=== PATIENT | male | born 1940 | race Caucasian/White ===

== ENCOUNTER 2020-09-21 18:48 | Inpatient (IN) | payer MEDICARE, SELFPAY ==
--- NOTE | ~2020-09-21 | XR_ITS ---
EXAMINATION: CR CHEST CLINICAL INFORMATION: Weakness. COMPARISON: Chest x-ray dated 03/05/2017. CTA of the chest dated 03/05/2017. TECHNIQUE: AP upright view of the chest was obtained. FINDINGS: The cardiomediastinal silhouette is within normal limits in size. Lungs bilaterally are symmetrically mildly hypoexpanded with bibasilar linear atelectasis seen. No focal consolidation, effusion or pneumothorax is seen. Bony structures are unremarkable. Prominent gaseous distention of bowel loops in the abdomen noted without significant air-fluid levels. XR/XR chest 1V IMPRESSION: 1. Low lung volumes with bibasilar atelectasis. 2. Nonspecific gaseous distention of bowel loops in the abdomen partially included in the [id number] of this chest x-ray. Please correlate clinically.
--- NOTE | ~2020-09-21 | CT_ITS ---
EXAMINATION: CT ABDOMEN AND PELVIS WITHOUT CONTRAST CLINICAL INFORMATION: Abdominal discomfort COMPARISON: 09/16/2013 TECHNIQUE: Multidetector volumetric imaging was performed from the superior aspect of the liver through the pubic symphysis. Sagittal and coronal reformatted images were obtained on the technologist's workstation. This CT examination was performed using dose optimization techniques as appropriate, variously including the following: *Automated exposure control *Adjustment of mA and/or kV according to patient size (this includes techniques or standardized protocols for targeted exams where dose is matched to indication/reason for exam; i.e. extremities or head) *Use of iterative reconstruction technique DLP: 485 mGy-cm FINDINGS: LUNG BASES: The visualized lung bases are unremarkable. LIVER, GALLBLADDER, AND BILIARY TREE: The liver is normal in size, shape, and attenuation. No focal hepatic lesion or biliary ductal dilatation is present. The gallbladder is unremarkable with no evidence of radiopaque gallstones, gallbladder wall thickening, or obvious pericholecystic inflammatory changes. PANCREAS: Unremarkable. SPLEEN: Unremarkable. ADRENAL GLANDS: Unremarkable. KIDNEYS AND URETERS: Multiple bilateral renal cortical cysts. No hydronephrosis. No perinephric collection. BLADDER: Unremarkable. GASTROINTESTINAL TRACT: Large amount stool within the colon with a stool ball measuring 6.7 cm within the rectum. No definitive findings of stercoral colitis. No small bowel abnormality. No definite bowel wall thickening. ABDOMINAL WALL: No significant hernia is appreciated. LYMPH NODES: Normal. VASCULAR: Unremarkable. PELVIC VISCERA: Unremarkable. OSSEOUS STRUCTURES: Unremarkable. CT/CT abdomen pelvis wo con IMPRESSION: Moderate stool retention with a stool ball within the rectum. No definitive findings of stercoral colitis. No specific findings to explain patient's symptoms.
--- NOTE | ~2020-09-21 | US_ITS ---
EXAMINATION: US VENOUS ULTRASOUND WITH DOPPLER LOWER EXTREMITY, BILATERAL CLINICAL INFORMATION: Leg pain COMPARISON: None TECHNIQUE: Ultrasound of the deep veins is performed from the hip to the calf with compression sonography and color and pulse Doppler assessment. Spectral analysis with color-flow imaging is performed. FINDINGS: Exam is very limited due to patient positioning. The visualized calf veins are patent. The common femoral, superficial femoral, profunda and popliteal veins are not visualized bilaterally. US/US venous duplex LE BI IMPRESSION: Very limited exam. Common femoral, superficial femoral, profunda and popliteal veins are not visualized. The visualized bilateral calf veins appear patent.
[2020-09-21 18:58] VITALS: BP 149/79; PULSE 73; RESP 18; TEMP 36.6; O2SAT 99; BMI 16.1
--- NOTE | 2020-09-21 19:11 | ED_ITS ---
HPI - General Adult General Chief complaint: Failure to Thrive Stated complaint: seizure Time Seen by Provider: 09/21/20 19:08 Source: family Limitations: altered mental status (Dementia) History of Present Illness HPI narrative: This is an 79-year-old male who was sent in by family for reported weakness and decreased p.o. intake. The patient has history of dementia and is unable to give history. The patient denies any headache. He ot herwise will not answer questions. The patient has a history of atrial fibrillation, low thyroid. The patient's nephew came in and explain further that they are concerned the patient could be dehydrated. They have noted that the patient seemed to have cramps in his legs and that he seems to cry at night. He is well cared for at home, with the and the nephew as well as others caring for him. He is never alone. The nephew also states that sometimes when they transfer the patient to a chair, he falls over. In the past he they were told he has seizures but the nephew states the patient has never had seizures. He was recently put on Eliquis, previously had been on Coumadin. He has not had any recent head injury. Related Data Allergies Allergy/AdvReac Type Severity Reaction Status Date / Time Penicillins [PENICILLINS] Allergy Unknown UNKNOWN Unverified 11/29/19 16:26 Review of Systems Review of Systems: Yes Unobtainable due to mental status Constitutional: Constitutional: Denies headache(s) and Reports poor appetite ENT: Denies headache(s) Neurologic: Denies headache(s) and Denies Sensory deficit (Neuro) FOR[facility]LY [facility], [facility] Social History Social History Advance Directives: No Advance Directives Information Provided: No Physical Exam Vital Signs: Vital Signs: Last Vital Signs Temp 97.4 F 09/21/20 19:52 Pulse 87 09/21/20 19:52 Resp 22 H 09/21/20 19:52 BP 136/72 09/21/20 19:52 Pulse Ox 100 09/21/20 19:52 Body Mass Index 16.1 Const: General: cooperative, no acute distress and alert Orientation/consciousness: patient oriented x3 HENMT: Head: Yes normal to inspection Eyes: General: appearance normal, both eyes and all related structures Eyelids: Yes eyelids normal Conjunctivae: conjunctivae normal Pupils: Equal, round and reactive pupils present Neck: Neck: Yes normal visual inspection and Yes supple Chest: Chest palpation & inspection: normal inspection of the chest Resp: Effort & Inspection: normal respiratory effort Auscultation: clear to auscultation bilaterally Cardio: Rate: regular rate Rhythm: abnormal rhythm and abnormal rhythm irregularly irregular Heart sounds: S1 normal heart sound present, S2 normal heart sound present, no gallops, no murmurs and no rubs GI: Palpation (GI): Soft to palpation, nontender and Other GI palpation findings present (Non-distended) Auscultation: normal bowel sounds Rectal Exam - Male: Yes heme positive stool (Brown but strongly heme positive) Skin: General skin exam: no rashes or lesions noted Neuro: Other: Patient follows some simple commands, such as opening his mouth. General: patient oriented x3, no focal motor deficits and CN's II-XI intact bilaterally Cranial nerves: Yes Equal, round and reactive pupils present Cognition (Neuro): abnormal cognition Speech: Abnormal speech present (Essentially nonverbal) Motor exam (neuro): 5/5 motor strength present throughout Sensory Exam: No Sensory deficit (Neuro) Extrem: General: Yes normal to inspection and Yes no pedal edema Psych: Appearance: grossly normal Affect: normal affect Medical Decision Making MDM Narrative Medical decision making narrative: Patient on Eliquis for atrial fibrillation, had been on Coumadin previously. Was sent in by family for failure to thrive, poor p.o. intake. Patient appeared well on exam and had normal vital signs. Hemoglobin/hematocrit came back low, with a hemoglobin around 7, hematocrit 23. Patient did have strongly heme-positive brown stool. Patient is to be admitted to the hospital for transfusion of 1 unit, observation for further bleeding, at least temporary cessation of Eliquis. Patient likely has had very gradual bleeding, , vital signs stable. Lab Data Lab results reviewed: Yes I reviewed the patient's lab results. Result diagrams: 09/21/20 19:59 09/21/20 19:59 Labs: Lab Results 09/21/20 09/21/20 09/21/20 Range/Units 19:59 19:59 19:59 WBC 6.2 (4.8-10.8) X10*3/uL RBC 2.82 L (4.60-5.80) X10*6/uL Hgb 7.3 L (14.0-18.0) g/dl Hct 23.8 L (42-52) % MCV 84.4 (80-98) fL MCH 25.9 L (27.0-33.0) pg MCHC 30.7 L (31.0-36.0) g/dl RDW 15.6 (11.0-16.0) % Plt Count 264 (160-400) X10*3/uL MPV 11.2 (9.4-12.4) fL Immature Gran % (Auto) 0.3 (0.0-0.4) % Neut % (Auto) 63.3 (45-73) % Lymph % (Auto) 25.2 (20-40) % [place] % (Auto) 9.4 (2-11) % Eos % (Auto) 1.3 (0-4) % Baso % (Auto) 0.5 (0-2) % Lymph # (Auto) 1.6 (1.2-4.9) X10*3/uL [place] # (Auto) 0.6 (0.1-1.2) X10*3/uL Eos # (Auto) 0.1 (0.0-0.4) X10*3/uL Baso # (Auto) 0.0 (0.0-0.2) X10*3/uL Abs Immat Gran (auto) 0.02 (0.00-0.03) X10*3/uL Absolute Neuts (auto) 3.9 (2.0-8.3) X10*3/uL Absolute Nucleated RBC 0.000 (0.0-0.012) X10*3/uL Nucleated RBC % (auto) 0.0 (0.0-0.2) /100WBC Troponin I High Sens 8.8 (<3.5-35.0) ng/L Urine Color YELLOW Urine Appearance HAZY Urine pH 6.0 (5.0-8.0) Ur Specific [place] 1.025 (1.005-1.025) Urine Protein NEG (NEG-TRACE) MG/DL Urine Glucose (UA) NEG (NEG) MG/DL Urine Ketones NEG (NEG) MG/DL Urine Blood 1+ H (NEG) Urine Nitrite NEG (NEG) Ur Leukocyte Esterase 1+ H (NEG) Urine RBC 5-9 H (0) /HPF Urine WBC 50-75 H (0-4) /HPF Urine WBC Clumps NOTED Ur Squamous Epith Cells NONE /LPF Urine Bacteria 1+ /LPF Urine Mucus TRACE /LPF Imaging Data Chest x-ray: Radiologist's impression: IMPRESSION: 1. Low lung volumes with bibasilar atelectasis. 2. Nonspecific gaseous distention of bowel loops in the abdomen partially included in the [id number] of this chest x-ray. Please correlate clinically. ECG Data Attestation: I personally reviewed and interpreted this ECG as follows: Interpretation: Sinus rhythm with a rate of 82. Normal R-wave progression. No ST elevation or depression. Normal QRS axis. Mild baseline artifact otherwise normal EKG. Discharge Plan Discharge Clinical Impression: Acute GI bleeding, Anemia Patient Disposition: Admitted As Inpatient
--- NOTE | 2020-09-21 19:49 | ECG_ITS ---
Test Reason : AMS Blood Pressure : / mmHG Vent. Rate : 082 BPM Atrial Rate : 082 BPM P-R Int : 130 ms QRS Dur : 066 ms QT Int : 400 ms P-R-T Axes : 077 028 057 degrees QTc Int : 467 ms Normal sinus rhythm Normal ECG When compared with ECG of 03-JAN-2018 15:43, Premature ventricular complexes are no longer Present Referred By: Bola Donahue Electronically Signed By:Heri Westfall
[2020-09-21 19:52] VITALS: BP 136/72; PULSE 87; RESP 22; TEMP 36.3; O2SAT 100
[2020-09-21 20:03] LABS: MANUAL DIFF FLAG NO
[2020-09-21 20:04] LABS: Basophils Percent Auto 0.5 % (0-2); Eosinophils Absolute Auto 0.1 X10*3/uL (0.0-0.4); Eosinophils Percent Auto 1.3 % (0-4); Hematocrit 23.8 % (42-52); Hemoglobin 7.3 g/dl (14.0-18.0); Imm Gran Abs Auto 0.02 X10*3/uL (0.00-0.03); Imm Gran Pct Auto 0.3 % (0.0-0.4); Lymphocytes Absolute Auto 1.6 X10*3/uL (1.2-4.9); Lymphocytes Percent Auto 25.2 % (20-40); Mean Corpuscular HGB Conc 30.7 g/dl (31.0-36.0); Mean Corpuscular Hemoglobin 25.9 pg (27.0-33.0); Mean Corpuscular Volume 84.4 fL (80-98); Mean Platelet Volume 11.2 fL (9.4-12.4); Monocytes Absolute Auto 0.6 X10*3/uL (0.1-1.2); Monocytes Percent Auto 9.4 % (2-11); Neutrophils Absolute Auto 3.9 X10*3/uL (2.0-8.3); Neutrophils Percent Auto 63.3 % (45-73); Platelet Count 264 X10*3/uL (160-400); Red Blood Count 2.82 X10*6/uL (4.60-5.80); Red Cell Distribution Width 15.6 % (11.0-16.0); White Blood Count 6.2 X10*3/uL (4.8-10.8)
[2020-09-21] MEDS: 0.9 % Sodium Chloride 1,000 ML 999 ML IV (20:04)
[2020-09-21 20:05] LABS: Appearance Urine HAZY; Color Urine YELLOW; Glucose Urine UA NEG (NEG); Leukocyte Esterase Urine 1+ (NEG); Nitrite Urine NEG (NEG); Specific Gravity - Urine 1.025 (1.005-1.025); UACC Culture Trigger YES; Urine Blood 1+ (NEG); Urine Ketones NEG (NEG); Urine Protein NEG (NEG-TRACE)
[2020-09-21 20:22] LABS: Bacteria Urine 1+ /LPF; Mucus Urine TRACE /LPF; WBC Clumps Urine NOTED; WBC Urine 50-75 /HPF (0-4)
[2020-09-21 20:44] LABS: Troponin-I High Sensitivity 8.8 ng/L (<3.5-35.0)
[2020-09-21 21:08] LABS: OBS Int Ctl Valid YES; OBS1 POSITIVE (NEGATIVE)
[2020-09-21 21:29] LABS: COVID-19 Test Negative (Negative); IDNOW Serial# 9DD0AD1C
[2020-09-21 21:40] LABS: Alanine Aminotransferase 12 U/L (0-40); Albumin Level 3.1 g/dL (3.5-5.0); Alkaline Phosphatase 96 U/L (39-117); Anion Gap 14 (12-20); Aspartate Amino Transferase 24 U/L (5-37); Bilirubin Total 0.4 mg/dL (0.0-1.0); Blood Urea Nitrogen 21 mg/dL (9-16); Calcium 8.4 mg/dL (8.4-10.2); Carbon Dioxide 23 mmol/L (22-29); Chloride 108 mmol/L (96-108); Creatinine Clr Calc Pharmacy 27.1; Estimated Glomerular Filt Rate 50; Glucose Random 110 mg/dL (60-115); Potassium 4.9 mmol/L (3.3-5.1); Sodium 140 mmol/L (135-145); Total Protein 6.1 g/dL (6.5-8.0)
[2020-09-21 21:55] VITALS: BP 143/73; PULSE 89; RESP 15; O2SAT 96
--- NOTE | 2020-09-21 21:55 | P.HPHOSP_ITS ---
History of Present Illness Date of Service: 09/21/20 Chief Complaint: Leg Cramps 79-year-old male with a past medical history of orthostatic hypotension on midodrine,, dementia, atrial fibrillation on Eliquis, chronic kidney disease, GERD presented to the hospital with a chief complaint of Leg cramps. patient is alert and awake, minimally communicative; lying comfortably in the bed Most of the history obtained from the patient's healthcare proxy Simba Cohen - [phone]. also spoke to the ER staff. Reportedly patient has been complaining of like g the past 1 week; has been receiving Tylenol every 4 hours; as he continued to have the symptoms family decided to bring him to the ER for further evaluation. Family reported that patient takes Eliquis for his atrial fibrillation. Family denies patient having any blood in the stool or black stools. Denies any vomiting/ blood in the vomitus. Patient has been moaning secondary to leg pains. Family also reports that patient is mostly bedbound, able to swallow regular food okay without any difficulty. Review of all other systems is negative except mentioned above ER course: Per ER team patient clinically appears stable, vitals stable, on rectal exam noted to have brown stooling but guaiac positive; CBC showed hemoglobin of 7.3. Ordered 1 unit of PRBC. Admitted for further management. [facility] Medical History (Updated 09/25/20 @ 13:41 by Heather Lim MD) Afib Chronic GERD Dementia Hypothyroid Kidney disease Microscopic hematuria Orthostatic hypotension Social History Household Members: Family and Children Housing: House Unable to assess alcohol history related to: Unable to respond Patient Tobacco Use Status: Tobacco use Unknown Advance Directives Date on File: 09/22/20 service: No Meds Allergies Allergy/AdvReac Type Severity Reaction Status Date / Time Penicillins [PENICILLINS] Allergy Unknown UNKNOWN Verified 09/21/20 22:16 Active Medications: Current Medications Generic Name Dose Route Start Last Admin Trade Name Freq PRN Reason Stop Dose Admin Acetaminophen 650 mg 09/21/20 21:28 Acetaminophen 325 Mg Tablet PO Q6H PRN Pain, Mild (Pain Scale 1-3) Dextrose/Sodium Chloride 1,000 mls @ 75 mls/hr 09/21/20 21:30 D51/2ns IVCONT .[id number] [facility] Levofloxacin 500 mg in 100 mls @ 100 mls/hr 09/21/20 21:45 Levaquin IV Q24H [facility] Melatonin 6 mg 09/21/20 21:28 Melatonin 3 Mg Tablet PO BEDTIME PRN Insomnia Pantoprazole Sodium 40 mg 09/22/20 06:30 Pantoprazole Sodium 40 Mg/10 Ml Vial IVPUSH DAILY@0630 [facility] Pharmacy Consult 1 each 09/21/20 20:42 Consult Rx Perform Med Rec MISCELLANE ONCE PRN Consult order Sodium Chloride 3 ml 09/22/20 00:00 0.9 % Sodium Chloride Flush 3 Ml Syringe IVFLUSH QSHIFT [facility] Home Medications Medication Instructions Recorded Confirmed Last Taken Type lactulose 15 ml PO DAILY PRN 09/21/20 09/21/20 Unknown History levetiracetam 1 tab PO BID 09/21/20 09/21/20 09/21/20 History levothyroxine 1 tab PO DAILY 09/21/20 09/21/20 09/21/20 History midodrine 1 tab PO TID 09/21/20 09/21/20 09/21/20 History omeprazole 1 cap PO DAILY 09/21/20 09/21/20 09/21/20 History trazodone 2 tab PO BEDTIME 09/21/20 09/21/20 Unknown History Physical Exam Vital Signs and Narrative: Vital Signs: Last Vital Signs Temp 97.4 F 09/21/20 19:52 Pulse 89 09/21/20 21:55 Resp 15 09/21/20 21:55 BP 143/73 H 09/21/20 21:55 Pulse Ox 96 09/21/20 21:55 Body Mass Index 16.1 Gen: Appears be in no acute distress HEENT: NCAT, Moist mucosa. Pulmonary: Vesicular breath sounds, fair air entry CVS: Normal S1-S2 Abdomen: BS+, Soft, Nontender Extremities: Warm well perfused Neuro: Alert and awake. Results Labs CBC and Chem 7: 09/25/20 05:43 09/24/20 05:20 Labs: Laboratory Results - last 24 hr 09/21/20 09/21/20 09/21/20 19:59 19:59 19:59 MCV 84.4 MCH 25.9 L MCHC 30.7 L RDW 15.6 Plt Count 264 MPV 11.2 Immature Gran % (Auto) 0.3 Neut % (Auto) 63.3 Lymph % (Auto) 25.2 [place] % (Auto) 9.4 Eos % (Auto) 1.3 Baso % (Auto) 0.5 Lymph # (Auto) 1.6 [place] # (Auto) 0.6 Eos # (Auto) 0.1 Baso # (Auto) 0.0 Abs Immat Gran (auto) 0.02 Absolute Neuts (auto) 3.9 Absolute Nucleated RBC 0.000 Nucleated RBC % (auto) 0.0 Anion Gap Estim Creat Clear Calc Estimated GFR Random Glucose Calcium Total Bilirubin AST ALT Alkaline Phosphatase Troponin I High Sens 8.8 Total Protein Albumin Urine Color YELLOW Urine Appearance HAZY Urine pH 6.0 Ur Specific [place] 1.025 Urine Protein NEG Urine Glucose (UA) NEG Urine Ketones NEG Urine Blood 1+ H Urine Nitrite NEG Ur Leukocyte Esterase 1+ H Urine RBC 5-9 H Urine WBC 50-75 H Urine WBC Clumps NOTED Ur Squamous Epith Cells NONE Urine Bacteria 1+ Urine Mucus TRACE Stool Occult Blood COVID-19 ([facility]) COVID-19 Clin Com Blood Type Antibody Screen Crossmatch 09/21/20 09/21/20 09/21/20 20:58 20:58 20:58 MCV MCH MCHC RDW Plt Count MPV Immature Gran % (Auto) Neut % (Auto) Lymph % (Auto) [place] % (Auto) Eos % (Auto) Baso % (Auto) Lymph # (Auto) [place] # (Auto) Eos # (Auto) Baso # (Auto) Abs Immat Gran (auto) Absolute Neuts (auto) Absolute Nucleated RBC Nucleated RBC % (auto) Anion Gap 14 Estim Creat Clear Calc 27.1 Estimated GFR 50 Random Glucose 110 Calcium 8.4 Total Bilirubin 0.4 AST 24 ALT 12 Alkaline Phosphatase 96 Troponin I High Sens Total Protein 6.1 L Albumin 3.1 L Urine Color Urine Appearance Urine pH Ur Specific [place] Urine Protein Urine Glucose (UA) Urine Ketones Urine Blood Urine Nitrite Ur Leukocyte Esterase Urine RBC Urine WBC Urine WBC Clumps Ur Squamous Epith Cells Urine Bacteria Urine Mucus Stool Occult Blood POSITIVE COVID-19 ([facility]) Negative COVID-19 Clin Com See Note Blood Type Antibody Screen Crossmatch 09/21/20 20:58 MCV MCH MCHC RDW Plt Count MPV Immature Gran % (Auto) Neut % (Auto) Lymph % (Auto) [place] % (Auto) Eos % (Auto) Baso % (Auto) Lymph # (Auto) [place] # (Auto) Eos # (Auto) Baso # (Auto) Abs Immat Gran (auto) Absolute Neuts (auto) Absolute Nucleated RBC Nucleated RBC % (auto) Anion Gap Estim Creat Clear Calc Estimated GFR Random Glucose Calcium Total Bilirubin AST ALT Alkaline Phosphatase Troponin I High Sens Total Protein Albumin Urine Color Urine Appearance Urine pH Ur Specific [place] Urine Protein Urine Glucose (UA) Urine Ketones Urine Blood Urine Nitrite Ur Leukocyte Esterase Urine RBC Urine WBC Urine WBC Clumps Ur Squamous Epith Cells Urine Bacteria Urine Mucus Stool Occult Blood COVID-19 ([facility]) COVID-19 Clin Com Blood Type O Positive Antibody Screen NEGATIVE Crossmatch See Detail Imaging Radiologist's Impressions: Impressions Chest X-Ray 09/21/20 19:08 IMPRESSION: 1. Low lung volumes with bibasilar atelectasis. 2. Nonspecific gaseous distention of bowel loops in the abdomen partially included in the [id number] of this chest x-ray. Please correlate clinically. Assessment and Plan (1) Anemia: Status: Acute 79-year-old male with a past medical history of dementia, CKD, hypertension, GERD presented to the hospital with a chief complaint of leg cram ps. Leg cramps: No swelling noticed. No signs of cellulitis. Will obtain venous duplex Anemia: Patient's hemoglobin currently 7.3. On rectal exam patient has brown stool with guaiac positive-> per ER physician. Patient being transfused 1 unit of blood. Patient's healthcare proxy verbally consented for blood transfusion. IV ppi GI consult Family denies patient being given any NSAIDs secondary to the history of CKD. UTI: Patient also noted to have microscopic hematuria-likely secondary to UTI. Will defer to the a.m. team to repeat urinalysis to ensure improvement after treatment. Will keep the patient on levofloxacin(patient allergic to penicillins) Follow-up cultures History of AFib: Eliquis on hold secondary to concerns for GI bleed. Hx Seizures: c/w home keppra History of dementia: Per family patient is minimally communicative, mostly bedbound; mental status currently at his baseline. DVT prophylaxis: Cannot use SCD boots secondary to leg cramps; cannot use pharmacologic agent secondary to GI bleed Code status: DNR/DNI-spoke to patient's healthcare proxy Pedro Luis Cohen [phone] Quality Stroke Does the patient have a stroke diagnosis?: No VTE Prior VTE?: No VTE Risk Level:: Medical - low VTE Device Contraindication: N/A - Device Ordered VTE Drug Contraindication: Treatment Not Indicated
--- NOTE | 2020-09-21 22:17 | PC.NURSE ---
this RN notified that RBCs are ready in BB however no consent was in chart. Dr Brown to go over consent with pt's HCP at bedside. Awaiting consent prior to retrieval of RBC from BB.
[2020-09-21 22:22] VITALS: O2SAT 100
[2020-09-21] MEDS: levoFLOXacin/D5W 500 MG/100 ML PIGGYBACK 100 MG IV (22:48)
--- NOTE | 2020-09-21 22:51 | PC.NURSE ---
Pt with poor vascular access. one PIV established, unable to place additional PIV. Abx started now as charted. Just after abx started, Dr Brown at bedside to obtain transfusion consent. This RN to transfuse once abx are complete.
[2020-09-22] VITALS (19 sets, daily range): BP systolic 96–172; BP diastolic 57–98; PULSE 58–84; RESP 12–20; TEMP 35.6–37.1; O2SAT 94–100
[2020-09-22] MEDS: Melatonin 3 MG TABLET 6 MG PO (00:11)
[2020-09-22] MEDS: traZODone HCL 50 MG TABLET PO (00:12)
--- NOTE | 2020-09-22 01:56 | PC.NURSE ---
pt's nephew and HCP, Simba Cohen, can be contacted at [phone]
[2020-09-22] MEDS: Dextrose 5 % and 0.45 % NaCl 1,000 ML 75 ML IVCONT ×2 (02:03→16:35)
--- NOTE | 2020-09-22 05:58 | PC.NURSE ---
This RN verified earlier in shift with Dr Vicente that pt's diet order of NPO is actually NPO except PO meds. Dr Vicente, via tiger text, confirmed that PO meds are ok to give despite NPO order
[2020-09-22] MEDS: Omeprazole 40 MG CAPSULE.DR PO (06:22)
[2020-09-22] MEDS: Levothyroxine Sodium 75 MCG TABLET PO (06:22)
[2020-09-22] MEDS: Pantoprazole Sodium 40 MG/10 ML VIAL IVPUSH (06:22)
[2020-09-22 07:27] LABS: MANUAL DIFF FLAG NO
[2020-09-22 07:36] LABS: Basophils Percent Auto 0.6 % (0-2); Eosinophils Absolute Auto 0.1 X10*3/uL (0.0-0.4); Eosinophils Percent Auto 1.3 % (0-4); Hematocrit 24.7 % (42-52); Hemoglobin 7.7 g/dl (14.0-18.0); Imm Gran Abs Auto 0.03 X10*3/uL (0.00-0.03); Imm Gran Pct Auto 0.6 % (0.0-0.4); Lymphocytes Absolute Auto 1.5 X10*3/uL (1.2-4.9); Lymphocytes Percent Auto 27.4 % (20-40); Mean Corpuscular HGB Conc 31.2 g/dl (31.0-36.0); Mean Corpuscular Hemoglobin 26.7 pg (27.0-33.0); Mean Corpuscular Volume 85.8 fL (80-98); Mean Platelet Volume 11.2 fL (9.4-12.4); Monocytes Absolute Auto 0.6 X10*3/uL (0.1-1.2); Monocytes Percent Auto 10.8 % (2-11); Neutrophils Absolute Auto 3.2 X10*3/uL (2.0-8.3); Neutrophils Percent Auto 59.3 % (45-73); Platelet Count 217 X10*3/uL (160-400); Red Blood Count 2.88 X10*6/uL (4.60-5.80); White Blood Count 5.4 X10*3/uL (4.8-10.8)
[2020-09-22 08:18] LABS: Anion Gap 11 (12-20); Blood Urea Nitrogen 18 mg/dL (9-16); Calcium 8.2 mg/dL (8.4-10.2); Carbon Dioxide 23 mmol/L (22-29); Chloride 109 mmol/L (96-108); Estimated Glomerular Filt Rate 54; Glucose Random 111 mg/dL (60-115); Iron 234 mcg/dL (45-160); Percent Iron Saturation 77 % (15-50); Potassium 4.7 mmol/L (3.3-5.1); Sodium 138 mmol/L (135-145); Total Iron Binding Capacity 304 mcg/dL (228-428); Unsaturated Iron Binding 70 ug/dL
[2020-09-22 08:24] LABS: Ferritin 9 ng/mL (20-250)
--- NOTE | 2020-09-22 08:33 | PC.NURSE ---
Addendum entered by Maday Wyatt 09/22/20 09:09: skin pale, warm, dry. Original Note: Patient sleeping, awakens easily to light touch- patient pulling off pulse oximeter as soon as its applied. Skin pwd, resp even and non labored. patient now back to sleep at this time.
[2020-09-22] MEDS: 0.9 % Sodium Chloride Flush 3 ML SYRINGE IVFLUSH ×2 (09:12→16:46)
[2020-09-22] MEDS: Midodrine HCl 5 MG TABLET PO (09:13)
[2020-09-22] MEDS: levETIRAcetam 500 MG TABLET PO (09:13)
--- NOTE | 2020-09-22 10:28 | PC.NURSE ---
Dr. Lim is aware of repeat labs, hospitalist is now at bedside to assess patient
--- NOTE | 2020-09-22 12:09 | P.CNGI_ITS ---
History of Present Illness Data of Consult Service Date: 09/22/20 Primary Care Provider: Unknown Physician HPI Reason for consult: GI Bleeding 79 YM admitted to [facility] [facility] with GI Bleeding: Chief Complaint: Leg Cramps 79-year-old male with a past medical history of orthostatic hypotension on midodrine,, dementia, atrial fibrillation on Eliquis, chronic kidney disease, GERD presented to the hospital with a chief complaint of Leg cramps. patient is alert and awake, minimally communicative; lying comfortably in the ed Most of the history obtained from the patient's healthcare proxy Simba Cohen - [phone]. also spoke to the ER staff. Reportedly patient has been complaining of abd pain the past 1 week; has been receiving Tylenol every 4 hours; as he continued to have the symptoms family decided to bring him to the ER for further evaluation. Family reported that patient takes Eliquis for his atrial fibrillation. Family denies patient having any blood in the stool or black stools. Denies any vomiting/ blood in the vomitus. Patient has been moaning secondary to leg pains. Family also reports that patient is mostly bedbound, able to swallow regular food okay without any difficulty. Review of all other systems is negative except mentioned above ER course: Per ER team patient clinically appears stable, vitals stable, on rectal exam noted to have brown stooling but guaiac positive; CBC showed hemoglobin of 7.3. Ordered 1 unit of PRBC. Admitted for further management. Uable to obtain hx from the patient since he has dementia and is non verbal IMAGING STUDIES: 09/21/[address] SCAN SHOWED: Moderate stool retention with a stool ball within the rectum. No definitive findings of stercoral colitis. No specific findings to explain patient's symptoms. Review of Systems Review of Systems: Not obtainable due to dementia [facility] Past Medical History Medical History Acute blood loss anemia Acute GI bleeding Afib Anemia Chronic GERD Dementia Hypothyroid Kidney disease Microscopic hematuria Orthostatic hypotension Social History Social History Household Members: Family and Children Housing: House Unable to assess alcohol history related to: Unable to respond Patient Tobacco Use Status: Tobacco use Unknown Advance Directives: Yes Advance Directives on File: Yes Advance Directives Date on File: 09/22/20 service: No Meds Allergies Allergy/AdvReac Type Severity Reaction Status Date / Time Penicillins [PENICILLINS] Allergy Unknown UNKNOWN Verified 09/21/20 22:16 Active Medications: Current Medications Generic Name Dose Route Start Last Admin Trade Name Freq PRN Reason Stop Dose Admin Acetaminophen 650 mg 09/21/20 21:28 Acetaminophen 325 Mg Tablet PO Q6H PRN Pain, Mild (Pain Scale 1-3) Dextrose/Sodium Chloride 1,000 mls @ 75 mls/hr 09/21/20 21:30 09/22/20 02:03 D51/2ns IVCONT 75 mls/hr .[id number] MARIELY Administration Levofloxacin 500 mg in 100 mls @ 100 mls/hr 09/21/20 22:00 09/22/20 00:00 Levaquin IV Infused Q24H MARIELY Infusion Lactulose 10 gm 09/21/20 22:30 Lactulose 20 Gm/30 Ml Solution PO DAILY PRN constipation Levetiracetam 500 mg 09/22/20 09:00 09/22/20 09:13 Levetiracetam 500 Mg Tablet PO 500 mg BID MARIELY Administration Levothyroxine Sodium 75 mcg 09/22/20 06:00 09/22/20 06:22 Levothyroxine Sodium 75 Mcg Tablet PO 75 mcg DAILY@0600 MARIELY Administration Melatonin 6 mg 09/21/20 21:28 09/22/20 00:11 Melatonin 3 Mg Tablet PO 6 mg BEDTIME PRN Administration Insomnia Midodrine 5 mg 09/22/20 09:00 09/22/20 09:13 Midodrine Hcl 5 Mg Tablet PO 5 mg TID MARIELY Administration Omeprazole 40 mg 09/22/20 06:30 09/22/20 06:22 Omeprazole 40 Mg Capsule. PO 40 mg DAILY@0630 MARIELY Administration Pantoprazole Sodium 40 mg 09/22/20 06:30 09/22/20 06:22 Pantoprazole Sodium 40 Mg/10 Ml Vial IVPUSH 40 mg DAILY@0630 MARIELY Administration Sodium Chloride 3 ml 09/22/20 00:00 09/22/20 09:12 0.9 % Sodium Chloride Flush 3 Ml Syringe IVFLUSH 3 ml QSHIFT MARIELY Administration Trazodone HCl 100 mg 09/22/20 21:00 Trazodone Hcl 100 Mg Tablet PO BEDTIME [facility] Home Medications Medication Instructions Recorded Confirmed Last Taken Type lactulose 10 gram/15 mL oral 15 ml PO DAILY PRN 09/21/20 09/21/20 Unknown History solution levetiracetam 500 mg tablet 1 tab PO BID 09/21/20 09/21/20 09/21/20 History levothyroxine 75 mcg tablet 1 tab PO DAILY 09/21/20 09/21/20 09/21/20 History midodrine 5 mg tablet 1 tab PO TID 09/21/20 09/21/20 09/21/20 History omeprazole 40 mg capsule,delayed 1 cap PO DAILY 09/21/20 09/21/20 09/21/20 History release trazodone 50 mg tablet 2 tab PO BEDTIME 09/21/20 09/21/20 Unknown History Physical Exam Vital Signs: Vital Signs: Last Vital Signs Temp 98.1 F 09/22/20 02:25 Pulse 63 09/22/20 09:13 Resp 14 09/22/20 09:11 BP 127/67 09/22/20 09:13 Pulse Ox 99 09/22/20 09:11 Body Mass Index 16.1 Const: General: no acute distress and ill appearing Nutritional Appearance: thin and underweight Orientation/consciousness: patient oriented x3 Limitations: no limitations HENMT: Head: Yes normal to inspection Mouth: Normal oral and palatal mucosa present Eyes: Sclerae: sclerae normal Pupils: Equal, round and reactive pupils present Neck: Neck: Yes normal visual inspection Chest: Chest palpation & inspection: normal inspection of the chest Resp: Effort & Inspection: normal respiratory effort Auscultation: clear to auscultation bilaterally Cardio: Palpation: normal PMI Rate: regular rate Rhythm: regular rhythm Heart sounds: S1 normal heart sound present, S2 normal heart sound present and no murmurs GI: Palpation (GI): Soft to palpation, nontender and No hepatosplenomegaly present Auscultation: normal bowel sounds Rectal Exam - Male: Yes deferred Skin: General skin exam: no rashes or lesions noted Neuro: General: patient oriented x3, gait normal and moves all extremities Cranial nerves: Yes Equal, round and reactive pupils present Extrem: General: Yes other (flexion contractures in all 4 extremities) Psych: Appearance: disheveled Speech and movement: Other speech and movement exam findings present (Psych) (dementia) Results Labs CBC & Chem 7: 09/25/20 05:43 09/24/20 05:20 Labs: Short CBC 09/21/20 09/22/20 Range/Units 19:59 07:22 WBC 6.2 5.4 (4.8-10.8) X10*3/uL Hgb 7.3 L 7.7 L (14.0-18.0) g/dl Hct 23.8 L 24.7 L (42-52) % Plt Count 264 217 (160-400) X10*3/uL BMP 09/21/20 09/22/20 20:58 07:22 Sodium 140 138 Potassium 4.9 4.7 Chloride 108 109 H Carbon Dioxide 23 23 BUN 21 H 18 H Creatinine 1.37 1.28 Calcium 8.4 8.2 L Liver Function 09/21/20 Range/Units 20:58 Total Bilirubin 0.4 (0.0-1.0) mg/dL AST 24 (5-37) U/L ALT 12 (0-40) U/L Alkaline Phosphatase 96 (39-117) U/L Albumin 3.1 L (3.5-5.0) g/dL Urine 09/21/20 Range/Units 19:59 Urine Color YELLOW Urine Appearance HAZY Urine pH 6.0 (5.0-8.0) Ur Specific [place] 1.025 (1.005-1.025) Urine Protein NEG (NEG-TRACE) MG/DL Urine Glucose (UA) NEG (NEG) MG/DL Microbiology Microbiology Results: Microbiology 09/21/20 19:59 Urine clean catch - Clean Catch Midstream Urine Culture - Preliminary Gram negative jane Assessment and Plan (1) Acute GI bleeding: (2) Anemia: 79 year olf Spansih speaking male with dementia, orthostatic hypotension on midodrine,, atrial fibrillation on Eliquis, chronic kidney disease, GERD admitted to [facility] [place] with leg cramp. Labs showed severe anemia and heme positive stools. He can have upper versus lower GI source of anemia. REOMMENDATIONS: 1. Proceed with EGD today. Procedure and potential complications including bleeding, perforation, drug reaction and aspiration were reviewed with the patient's nephew and healthcare proxy, Simba Cohen - [phone], with the help of a telephone certified court interpreter and informed verbal consent was obtained. 2. Monitor H & H twice daily. 3. Agree with IV PPI Procedures Date of Service Date of Service: 09/22/20
--- NOTE | 2020-09-22 13:10 | P.CDIC_ITS ---
CDI Concurrent Query Service Date: 09/22/20 Documentation Clarification: Please clarify if you are treating a proba ble/suspected/likely or confirmed: Acute Blood Loss Anemia Anemia due to Elaquis use Other, please specify Provider Response: Acute Blood Loss Anemia PLEASE DO NOT DELETE/MODIFY EXISTING CONTENT Additional information is needed in order to code to the highest accuracy and appropriate Severity of Illness (SOI). Please clarify the information noted below in your progress notes and discharge summary. Risk Factors/Clinical Indicators/Treatments Admit with GI Bleed, stool heme positive H/H 10/03 Transfuse 1 unit blood Stop Elaquis, likely had gradual bleeding H&P Impression: Anemia, UTI, concern for GI bleed CDS: Petra Navarro RN Contact Number: [phone] Please Review the information above and exercise your independent professional judgment in responding to the query. If you concur, pleas document in the PROGRESS NOTES and DISCHARGE SUMMARY. If you do not agree with the query, please document in the query above. THIS QUERY IS PART OF THE PERMANENT MEDICAL RECORD
--- NOTE | 2020-09-22 13:56 | MHC.CM.PN ---
Addendum entered by Elena Godinez 09/22/20 14:47: Per Lyubov at [facility], patient has been active with [facility] in the past for residential and physical therapy. If home therapy is needed at discharge, Lyubov will authorize referral to [facility]. Original Note: Attempted to meet with patient in regards to discharge planning. Patient out of the unit for testing. Will attempt to meet again. Continue to monitor for d/c needs.
--- NOTE | 2020-09-22 14:34 | P.BOP_ITS ---
Brief Operative Note Date of Service: 09/22/20 Pre-op diagnosis: Sever anemia, GI Bleeding Post-op diagnosis: other (Gastric polyp) Procedure: FLEXIBLE TRANSORAL UPPER GASTROINTESTINAL ENDOSCOPY UPPER ENDOSCOPY Consent: Indications for the procedure and potential complications of bleeding, perforation, reaction to medications and missed diagnosis were discussed with the patient's son and HCP (since pt has dementia) with the help of a automotive parts interpreter and informed verbal consent was obtained over the phone. Instrument: Olympus GIF H 190 mid size upper endoscope Monitoring: Vital signs and clinical assessment, continuous EKG monitoring, Pulse oximetry, Carbon Dioxide monitoring and blood pressure monitoring were done throughout the procedure. Procedure: The patient was placed in the left lateral decubitis position and pre-procedure medications were administered and a bite block was placed. The endoscope was inserted into the mouth and advanced under direct vision to the third part of duodenum. A careful inspection was made as the upper endoscope was withdrawn including a retroflexed examination of the proximal stomach; Findings and interventions are described below. Findings: Larynx: Normal Esophagus: Tortuous esophagus with increased tertiary contractions without stricture or ring. GE junction at 40 cms. No esophagitis or Romero's. Stomach: Mild gastric erythema with decreased fundal folds. A 5-6 mm benign appearing polyp just distal to GEJ. Grade 2 flap valve on retroflexed examination of the cardia. Duodenum: Normal bulb and unable to intubate the descending duodenum due to exce ssive looping of he endoscope in the stomach. Intervention: No biopsies were obtained since pt is on Apixiban - held today Impression and Post Procedure Diagnosis: Endoscopy Findings: ESOPHAGUS: Tortuous esophagus with increased tertiary contractions without stricture or ring. GE junction at 40 cms. No esophagitis or Romero's. STOMACH: Mild gastric erythema with decreased fundal folds. A 5-6 mm benign appearing polyp just distal to GEJ. No blood in the upper GI tract or potential source of blood loss noted on EGD. 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 Given patient's dementia, will hold off colonoscopy for now. EGD findings were reviewed with discuss further management with patient's nephew and healthcare proxy, Simba Cohen - [phone], with the help of a telephone automotive parts interpreter # [phone]. Discussed option for conservative management with blood transfusion and monitoring his CBC versus colonoscopy given patient's dementia and difficulty taking colon prep (may need NG tube placement) Pt's nephew would like to discuss this with the rest of the family and review plan of care in a family conference. Surgeon: Isaac Loyd MD Anesthesia: MAC (Dr Espinoza) Was an Director Toxicology used for this Procedure?: No Director Toxicology: Nate Hsu Estimated blood loss (mL): 0 Pathology: none sent Condition: stable Disposition: PACU
--- NOTE | 2020-09-22 17:41 | P.PNIM_ITS ---
Subjective Subjective Date of Service: 09/22/20 Interval History: Unable to obtain reliable history due to advanced dementia despite use of pt's resighini language, Burkinan. Went for EGD today- largely unremarkable Physical Exam Vital Signs: Vital Signs: Last Vital Signs Temp 96.8 F 09/22/20 16:00 Pulse 84 09/22/20 16:00 Resp 20 09/22/20 16:00 BP 152/86 H 09/22/20 16:00 Pulse Ox 94 09/22/20 16:00 Body Mass Index 16.1 Gen: in no acute distress, malnourished HEENT: sclera anicteric, moist mucus membranes, pale mucosa Neck: supple Lungs: clear to auscultation bilaterally Heart: regular rate and rhythm Abd: soft, non-tender, non-distended Ext: no edema Skin: warm/well-perfused Neuro: disoriented Psych: impaired insight Objective Data Current Medications Generic Name Dose Route Start Last Admin Trade Name Freq PRN Reason Stop Dose Admin Acetaminophen 650 mg 09/21/20 21:28 Acetaminophen 325 Mg Tablet PO Q6H PRN Pain, Mild (Pain Scale 1-3) Dextrose/Sodium Chloride 1,000 mls @ 75 mls/hr 09/21/20 21:30 09/22/20 16:35 D51/2ns IVCONT 75 mls/hr .[id number] MARIELY Administration Levofloxacin 500 mg in 100 mls @ 100 mls/hr 09/21/20 22:00 09/22/20 00:00 Levaquin IV Infused Q24H MARIELY Infusion Lactulose 10 gm 09/21/20 22:30 Lactulose 20 Gm/30 Ml Solution PO DAILY PRN constipation Levetiracetam 500 mg 09/22/20 09:00 09/22/20 09:13 Levetiracetam 500 Mg Tablet PO 500 mg BID MARIELY Administration Levothyroxine Sodium 75 mcg 09/22/20 06:00 09/22/20 06:22 Levothyroxine Sodium 75 Mcg Tablet PO 75 mcg DAILY@0600 MARIELY Administration Melatonin 6 mg 09/21/20 21:28 09/22/20 00:11 Melatonin 3 Mg Tablet PO 6 mg BEDTIME PRN Administration Insomnia Midodrine 5 mg 09/22/20 09:00 09/22/20 16:45 Midodrine Hcl 5 Mg Tablet PO Not Given TID MARIELY Omeprazole 40 mg 09/22/20 06:30 09/22/20 06:22 Omeprazole 40 Mg Capsule.Dr PO 40 mg DAILY@30 [facility] Administration Pantoprazole Sodium 40 mg 09/22/20 06:30 09/22/20 06:22 Pantoprazole Sodium 40 Mg/10 Ml Vial IVPUSH 40 mg DAILY@0630 [facility] Administration Sodium Chloride 3 ml 09/22/20 00:00 09/22/20 16:46 0.9 % Sodium Chloride Flush 3 Ml Syringe IVFLUSH 3 ml QSHIFT [facility] Administration Trazodone HCl 100 mg 09/22/20 21:00 Trazodone Hcl 100 Mg Tablet PO BEDTIME [facility] Labs CBC & Chem 7: 09/22/20 07:22 09/22/20 07:22 Labs: Laboratory Results - last 24 hr 09/21/20 09/21/20 09/21/20 19:59 19:59 19:59 WBC 6.2 RBC 2.82 L Hgb 7.3 L Hct 23.8 L MCV 84.4 MCH 25.9 L MCHC 30.7 L RDW 15.6 Plt Count 264 MPV 11.2 Immature Gran % (Auto) 0.3 Neut % (Auto) 63.3 Lymph % (Auto) 25.2 [place] % (Auto) 9.4 Eos % (Auto) 1.3 Baso % (Auto) 0.5 Lymph # (Auto) 1.6 [place] # (Auto) 0.6 Eos # (Auto) 0.1 Baso # (Auto) 0.0 Abs Immat Gran (auto) 0.02 Absolute Neuts (auto) 3.9 Absolute Nucleated RBC 0.000 Nucleated RBC % (auto) 0.0 Sodium Potassium Chloride Carbon Dioxide Anion Gap BUN Creatinine Estim Creat Clear Calc Estimated GFR Random Glucose Calcium Magnesium Iron TIBC % Saturation Unsat Iron Binding Ferritin Total Bilirubin AST ALT Alkaline Phosphatase Troponin I High Sens 8.8 Total Protein Albumin TSH Urine Color YELLOW Urine Appearance HAZY Urine pH 6.0 Ur Specific [place] 1.025 Urine Protein NEG Urine Glucose (UA) NEG Urine Ketones NEG Urine Blood 1+ H Urine Nitrite NEG Ur Leukocyte Esterase 1+ H Urine RBC 5-9 H Urine WBC 50-75 H Urine WBC Clumps NOTED Ur Squamous Epith Cells NONE Urine Bacteria 1+ Urine Mucus TRACE Stool Occult Blood COVID-19 ([facility]) COVID-19 Clin Com Blood Type Antibody Screen Crossmatch 09/21/20 09/21/20 09/21/20 20:58 20:58 20:58 WBC RBC Hgb Hct MCV MCH MCHC RDW Plt Count MPV Immature Gran % (Auto) Neut % (Auto) Lymph % (Auto) [place] % (Auto) Eos % (Auto) Baso % (Auto) Lymph # (Auto) [place] # (Auto) Eos # (Auto) Baso # (Auto) Abs Immat Gran (auto) Absolute Neuts (auto) Absolute Nucleated RBC Nucleated RBC % (auto) Sodium 140 Potassium 4.9 Chloride 108 Carbon Dioxide 23 Anion Gap 14 BUN 21 H Creatinine 1.37 Estim Creat Clear Calc 27.1 Estimated GFR 50 Random Glucose 110 Calcium 8.4 Magnesium Iron TIBC % Saturation Unsat Iron Binding Ferritin Total Bilirubin 0.4 AST 24 ALT 12 Alkaline Phosphatase 96 Troponin I High Sens Total Protein 6.1 L Albumin 3.1 L TSH 0.50 Urine Color Urine Appearance Urine pH Ur Specific [place] Urine Protein Urine Glucose (UA) Urine Ketones Urine Blood Urine Nitrite Ur Leukocyte Esterase Urine RBC Urine WBC Urine WBC Clumps Ur Squamous Epith Cells Urine Bacteria Urine Mucus Stool Occult Blood POSITIVE COVID-19 ([facility]) Negative COVID-19 Clin Com See Note Blood Type Antibody Screen Crossmatch 09/21/20 09/22/20 09/22/20 20:58 07:22 07:22 WBC 5.4 RBC 2.88 L Hgb 7.7 L Hct 24.7 L MCV 85.8 MCH 26.7 L MCHC 31.2 RDW 16.0 Plt Count 217 MPV 11.2 Immature Gran % (Auto) 0.6 H Neut % (Auto) 59.3 Lymph % (Auto) 27.4 [place] % (Auto) 10.8 Eos % (Auto) 1.3 Baso % (Auto) 0.6 Lymph # (Auto) 1.5 [place] # (Auto) 0.6 Eos # (Auto) 0.1 Baso # (Auto) 0.0 Abs Immat Gran (auto) 0.03 Absolute Neuts (auto) 3.2 Absolute Nucleated RBC 0.000 Nucleated RBC % (auto) 0.0 Sodium 138 Potassium 4.7 Chloride 109 H Carbon Dioxide 23 Anion Gap 11 L BUN 18 H Creatinine 1.28 Estim Creat Clear Calc 29.0 Estimated GFR 54 Random Glucose 111 Calcium 8.2 L Magnesium Iron TIBC % Saturation Unsat Iron Binding Ferritin Total Bilirubin AST ALT Alkaline Phosphatase Troponin I High Sens Total Protein Albumin TSH Urine Color Urine Appearance Urine pH Ur Specific [place] Urine Protein Urine Glucose (UA) Urine Ketones Urine Blood Urine Nitrite Ur Leukocyte Esterase Urine RBC Urine WBC Urine WBC Clumps Ur Squamous Epith Cells Urine Bacteria Urine Mucus Stool Occult Blood COVID-19 ([facility]) COVID-19 Clin Com Blood Type O Positive Antibody Screen NEGATIVE Crossmatch See Detail 09/22/20 07:22 WBC RBC Hgb Hct MCV MCH MCHC RDW Plt Count MPV Immature Gran % (Auto) Neut % (Auto) Lymph % (Auto) [place] % (Auto) Eos % (Auto) Baso % (Auto) Lymph # (Auto) [place] # (Auto) Eos # (Auto) Baso # (Auto) Abs Immat Gran (auto) Absolute Neuts (auto) Absolute Nucleated RBC Nucleated RBC % (auto) Sodium Potassium Chloride Carbon Dioxide Anion Gap BUN Creatinine Estim Creat Clear Calc Estimated GFR Random Glucose Calcium Magnesium 2.0 Iron 234 H TIBC 304 % Saturation 77 H Unsat Iron Binding 70 Ferritin 9 L Total Bilirubin AST ALT Alkaline Phosphatase Troponin I High Sens Total Protein Albumin TSH Urine Color Urine Appearance Urine pH Ur Specific [place] Urine Protein Urine Glucose (UA) Urine Ketones Urine Blood Urine Nitrite Ur Leukocyte Esterase Urine RBC Urine WBC Urine WBC Clumps Ur Squamous Epith Cells Urine Bacteria Urine Mucus Stool Occult Blood COVID-19 ([facility]) COVID-19 Clin Com Blood Type Antibody Screen Crossmatch Microbiology Microbiology Results: Microbiology 09/21/20 19:59 Urine Culture - Preliminary Urine clean catch - Clean Catch Midstream Gram negative jane Quality Stroke Does the patient have a stroke diagnosis?: No VTE Prior VTE?: No VTE Risk Level:: Medical - low VTE Device Contraindication: N/A - Device Ordered VTE Drug Contraindication: Treatment Not Indicated Assessment and Plan (1) Acute GI bleeding: Status: Acute (2) Acute blood loss anemia: Status: Acute Assessment and Plan: hospital d#2 79yo M with dementia, CKD, HTN, GERD, AF on apixaban presented with leg cramps admitted for acute blood loss anemia, FOBT positive # acute blood loss anemia # GI bleed - EGD done today, per GI hr shared services consultant: ESOPHAGUS: Tortuous esophagus with increased tertiary contractions without stricture or ring. GE junction at 40 cms. No esophagitis or Romero's. STOMACH: Mild gastric erythema with decreased fundal folds. A 5-6 mm benign appearing polyp just distal to GEJ. No blood in the upper GI tract or potential source of blood loss noted on EGD. 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 Given patient's dementia, will hold off colonoscopy for now and discuss further management with patient's son # UTI with microscopic hematuria - levofloxacin d#2, follow UCx # AF - hold apixaban due to GI bleed - rate-controlled # sz disorder - continue home levetiracetam # dementia - HAT RENOVATOR consultation - baseline- minimally communicative + bedbound # orthostatic hypotension - continue midodrine # hypothyroidism - continue LT4 # VTE ppx - SCDs # code - full
[2020-09-22] MEDS: levETIRAcetam in NaCl (iso-os) 500 MG/100 ML PIGGYBACK 400 MG IV (21:32)
[2020-09-22] MEDS: levoFLOXacin/D5W 500 MG/100 ML PIGGYBACK 100 MG IV (21:36)
[2020-09-23] VITALS (9 sets, daily range): BP systolic 98–178; BP diastolic 52–82; PULSE 67–160; RESP 18–20; TEMP 36.2–37.1; O2SAT 94–100; BMI 16.1
[2020-09-23 04:47] LABS: Hematocrit 29.6 % (42-52); Hemoglobin 9.5 g/dl (14.0-18.0); Mean Corpuscular HGB Conc 32.1 g/dl (31.0-36.0); Mean Corpuscular Hemoglobin 27.9 pg (27.0-33.0); Mean Corpuscular Volume 87.1 fL (80-98); Mean Platelet Volume 11.1 fL (9.4-12.4); Platelet Count 219 X10*3/uL (160-400); Red Cell Distribution Width 16.1 % (11.0-16.0); White Blood Count 5.8 X10*3/uL (4.8-10.8)
[2020-09-23 05:15] LABS: Anion Gap 11 (12-20); Blood Urea Nitrogen 13 mg/dL (9-16); Calcium 8.4 mg/dL (8.4-10.2); Carbon Dioxide 23 mmol/L (22-29); Chloride 109 mmol/L (96-108); Estimated Glomerular Filt Rate 54; Glucose Random 104 mg/dL (60-115); Potassium 4.3 mmol/L (3.3-5.1); Sodium 139 mmol/L (135-145)
[2020-09-23 05:45] LABS: Folate 14.6 ng/mL (> or = 4.0); Vitamin B12 427 pg/mL (200-900)
[2020-09-23] MEDS: Pantoprazole Sodium 40 MG/10 ML VIAL IVPUSH (05:55)
[2020-09-23] MEDS: Dextrose 5 % and 0.45 % NaCl 1,000 ML 75 ML IVCONT (06:12)
--- NOTE | 2020-09-23 10:19 | MHC.CM.PN ---
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
[2020-09-23] MEDS: levETIRAcetam in NaCl (iso-os) 500 MG/100 ML PIGGYBACK 400 MG IV ×2 (10:28→21:15)
[2020-09-23] MEDS: Sodium Phosphate,Mono-Dibasic 133 ML ENEMA PR (10:28)
--- NOTE | 2020-09-23 10:28 | MHC.SL.SWA ---
Speech Pathologist Impression: Risk of Aspiration Oral Phase Dysphagia Risk of Aspiration Due to: Poor PO Intake Dysphasia Diet Status: Liquid Consistency and Strategies for Safe Swallow: Liquid Intake Recommendation: Thin Liquid Intake Strategies: Small Sips Solid Food Consistency: Dietary Recommendations: Pureed (NDD1) Additional Modifications to Solid Foods: Oral Medication Intake: Crushed with Puree Compensatory Strategies and Precautions to be Taken for Safe Swallow: Sitting Upright (90 deg) Liquids from Cup Liquids from Spoon Small Bites and Sips Alternate Liquids/Solids Oral Check Supervision While Eating and Drinking for Safe Swallow: Total Assistance Foods to Avoid: Swallowing Recommended Treatments: Recommendation for Speech: Inpatient Speech Therapy Comment: Frequency/Duration: Date Range for Service Req: Timeline to reassess: Security Officer Clinican/Clinical Fellow: No Supervisory Statement: I have reviewed and agree with the student/clinical fellow's documentation: N/A Speech Language Pathologist: Lyubov Driscoll M.A. CCC-SLIP LASTER
--- NOTE | 2020-09-23 11:03 | P.PNIM_ITS ---
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 does not appear to be in pain Physical Exam Vital Signs: Vital Signs: Last Vital Signs Temp 98.2 F 09/23/20 10:48 Pulse 76 09/23/20 10:48 Resp 20 09/23/20 10:48 BP 178/82 H 09/23/20 10:48 Pulse Ox 100 09/23/20 10:48 Body Mass Index 16.1 Gen: in no acute distress, malnourished HEENT: sclera anicteric, moist mucus membranes, pale mucosa Neck: supple Lungs: clear to auscultation bilaterally Heart: regular rate and rhythm Abd: soft, non-tender, non-distended Ext: no edema Skin: warm/well-perfused Neuro: disoriented Psych: impaired insight Objective Data Current Medications Generic Name Dose Route Start Last Admin Trade Name Freq PRN Reason Stop Dose Admin Acetaminophen 650 mg 09/21/20 21:28 Acetaminophen 325 Mg Tablet PO Q6H PRN Pain, Mild (Pain Scale 1-3) Levofloxacin 500 mg in 100 mls @ 100 mls/hr 09/21/20 22:00 09/22/20 23:00 Levaquin IV Infused Q24H MARIELY Infusion Levetiracetam 500 mg in 100 mls @ 400 mls/hr 09/22/20 22:00 09/23/20 10:48 Keppra IV Infused Q12H MARIELY Infusion Lactulose 10 gm 09/21/20 22:30 Lactulose 20 Gm/30 Ml Solution PO DAILY PRN constipation Levothyroxine Sodium 75 mcg 09/22/20 06:00 09/23/20 05:56 Levothyroxine Sodium 75 Mcg Tablet PO Not Given DAILY@0600 [facility] Melatonin 6 mg 09/21/20 21:28 09/22/20 00:11 Melatonin 3 Mg Tablet PO 6 mg BEDTIME PRN Administration Insomnia Midodrine 5 mg 09/22/20 09:00 09/23/20 08:19 Midodrine Hcl 5 Mg Tablet PO Not Given TID [facility] Omeprazole 40 mg 09/22/20 06:30 09/23/20 05:56 Omeprazole 40 Mg Capsule.Dr PO Not Given DAILY@0630 [facility] Pantoprazole Sodium 40 mg 09/22/20 06:30 09/23/20 05:55 Pantoprazole Sodium 40 Mg/10 Ml Vial IVPUSH 40 mg DAILY@0630 MARIELY Administration Sodium Biphosphate/Sodium Phosphate 133 ml 09/22/20 18:00 09/23/20 10:28 Sodium Phosphate,[place]-Dibasic 133 Ml Enema [place] 133 ml ONCE MARIELY Administration Sodium Chloride 3 ml 09/22/20 00:00 09/23/20 07:28 0.9 % Sodium Chloride Flush 3 Ml Syringe IVFLUSH Not Given QSHIFT [facility] Trazodone HCl 100 mg 09/22/20 21:00 09/22/20 21:38 Trazodone Hcl 100 Mg Tablet PO Not Given BEDTIME [facility] Labs CBC & Chem 7: 09/23/20 04:34 09/23/20 04:34 Labs: Laboratory Results - last 24 hr 09/21/20 09/23/20 09/23/20 20:58 04:34 04:34 WBC 5.8 RBC 3.40 L Hgb 9.5 L D Hct 29.6 L MCV 87.1 MCH 27.9 MCHC 32.1 RDW 16.1 H Plt Count 219 MPV 11.1 Absolute Nucleated RBC 0.000 Nucleated RBC % (auto) 0.0 Sodium 139 Potassium 4.3 Chloride 109 H Carbon Dioxide 23 Anion Gap 11 L BUN 13 Creatinine 1.28 Estim Creat Clear Calc 29.0 Estimated GFR 54 Random Glucose 104 Calcium 8.4 Vitamin B12 Folate Blood Type O Positive Antibody Screen NEGATIVE Crossmatch See Detail 09/23/20 04:34 WBC RBC Hgb Hct MCV MCH MCHC RDW Plt Count MPV Absolute Nucleated RBC Nucleated RBC % (auto) Sodium Potassium Chloride Carbon Dioxide Anion Gap BUN Creatinine Estim Creat Clear Calc Estimated GFR Random Glucose Calcium Vitamin B12 427 Folate 14.6 Blood Type Antibody Screen Crossmatch Microbiology Microbiology Results: Microbiology 09/21/20 19:59 Urine Culture - Final Urine clean catch - Clean Catch Midstream Klebsiella pneumoniae 09/21/20 22:48 Blood Culture - Preliminary Blood - Venous No growth after 24 hours. 09/21/20 22:48 Blood Culture - Preliminary Blood - Venous No growth after 24 hours. Quality Stroke Does the patient have a stroke diagnosis?: No VTE Prior VTE?: No VTE Risk Level:: Medical - low VTE Device Contraindication: N/A - Device Ordered VTE Drug Contraindication: Treatment Not Indicated Assessment and Plan (1) Acute GI bleeding: Status: Acute (2) Acute blood loss anemia: Status: Acute Assessment and Plan: hospital d#3 79yo M with dementia, CKD, HTN, GERD, AF on apixaban presented with leg cramps admitted for acute blood loss anemia, FOBT positive # acute blood loss anemia # GI bleed - EGD done 09/22/20, per Dr Loyd: ESOPHAGUS: Tortuous esophagus with increased tertiary contractions without stricture or ring. GE junction at 40 cms. No esophagitis or Romero's. STOMACH: Mild gastric erythema with decreased fundal folds. A 5-6 mm benign appearing polyp just distal to GEJ. No blood in the upper GI tract or potential source of blood loss noted on EGD. 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
--- NOTE | 2020-09-23 11:19 | MHC.CLN ---
PT IS MODERATELY MALNOURISHED PT WITH MODERATELY DEPLETED SUBCUTANEOUS FAT AND MUSCLE MASS, BMI 17 PREVIOUS WT HX REVEALS 162# (12/2017) TRIGGERS FOR 39% SIGNIFICANT WT LOSS X 2.5 YEARS DIET RX: NPO WHEN DIET TO ADVANCE RECOMMEND ADDING ENSURE BID TO INCREASE KCALS SUPPLEMENT TO PROVIDE 700KCALS, 40G PROTEIN NOTED FRAGILE SKIN-MONITOR SEE ALSO CLINICAL NUTRITION ASSESSMENT
--- NOTE | 2020-09-23 11:32 | HO.POSTANES ---
Post Anesthesia Evaluation Post Anesthesia Evaluation Vital Signs: Vital Signs Temp Pulse Resp BP Pulse Ox 09/23/20 10:48 98.2 F 76 20 178/82 H 100 09/23/20 08:19 67 152/82 H 09/23/20 07:23 98.4 F 67 20 152/82 H 99 09/23/20 03:43 98.0 F 92 18 146/78 H 98 09/23/20 00:00 98.3 F 75 18 140/67 H 96 Anesthesia: Monitored Mental Status: Awake Pain Control: Satisfactory Nausea/Vomiting: None Hydration: Adequate Anesthesia-Related Issues: No Anes. Related Issues
[2020-09-23] MEDS: 0.9 % Sodium Chloride Flush 3 ML SYRINGE IVFLUSH (17:07)
[2020-09-23] MEDS: levoFLOXacin/D5W 500 MG/100 ML PIGGYBACK 100 MG IV (21:40)
[2020-09-23] MEDS: traZODone HCL 100 MG TABLET PO (21:40)
[2020-09-24] VITALS (7 sets, daily range): BP systolic 108–165; BP diastolic 64–92; PULSE 67–76; RESP 17–20; TEMP 36.2–37.1; O2SAT 96–100
[2020-09-24] MEDS: 0.9 % Sodium Chloride Flush 3 ML SYRINGE IVFLUSH ×3 (00:19→18:03)
[2020-09-24] MEDS: Omeprazole 40 MG CAPSULE.DR PO (05:45)
[2020-09-24] MEDS: Levothyroxine Sodium 75 MCG TABLET PO (05:45)
[2020-09-24] MEDS: Pantoprazole Sodium 40 MG/10 ML VIAL IVPUSH (05:45)
[2020-09-24 06:23] LABS: Hematocrit 32.5 % (42-52); Hemoglobin 9.8 g/dl (14.0-18.0); Mean Corpuscular HGB Conc 30.2 g/dl (31.0-36.0); Mean Corpuscular Volume 92.9 fL (80-98); Mean Platelet Volume 11.7 fL (9.4-12.4); NRBC Pct Auto 0.4 /100WBC (0.0-0.2); Platelet Count 184 X10*3/uL (160-400); Red Cell Distribution Width 16.9 % (11.0-16.0); White Blood Count 5.4 X10*3/uL (4.8-10.8)
[2020-09-24 07:01] LABS: Anion Gap 13 (12-20); Blood Urea Nitrogen 14 mg/dL (9-16); Calcium 8.5 mg/dL (8.4-10.2); Carbon Dioxide 21 mmol/L (22-29); Chloride 107 mmol/L (96-108); Creatinine Clr Calc Pharmacy 28.1; Estimated Glomerular Filt Rate 52; Glucose Random 74 mg/dL (60-115); Potassium 4.4 mmol/L (3.3-5.1); Sodium 137 mmol/L (135-145)
[2020-09-24] MEDS: Midodrine HCl 5 MG TABLET PO ×3 (08:53→21:56)
[2020-09-24] MEDS: levoFLOXacin 750 MG TABLET PO (08:53)
[2020-09-24] MEDS: levETIRAcetam 500 MG TABLET PO ×2 (08:53→21:56)
--- NOTE | 2020-09-24 11:40 | MHC.CM.PN ---
IMM 09/24/20 MALE DX ANEMIA He is discharged to home today with his Niece. [facility] will resume services. They have been notified of discharge. Discharge info sent. Pts niece has also been notified of DC. BLS proving transportation. Niece will be home to accept.
--- NOTE | 2020-09-24 14:34 | P.PNIM_ITS ---
Subjective Subjective Date of Service: 09/24/20 Interval History: no obvious GI bleeding unable to obtain ROS due to dementia Physical Exam Vital Signs: Vital Signs: Last Vital Signs Temp 97.7 F 09/24/20 11:24 Pulse 74 09/24/20 11:24 Resp 17 09/24/20 11:24 BP 165/92 H 09/24/20 11:24 Pulse Ox 100 09/24/20 11:24 Body Mass Index 16.1 Gen: in no acute distress, malnourished HEENT: sclera anicteric, moist mucus membranes, pale mucosa Neck: supple Lungs: clear to auscultation bilaterally Heart: regular rate and rhythm Abd: soft, non-tender, non-distended Ext: no edema Skin: warm/well-perfused Neuro: disoriented Psych: impaired insight Objective Data Current Medications Generic Name Dose Route Start Last Admin Trade Name Freq PRN Reason Stop Dose Admin Acetaminophen 650 mg 09/21/20 21:28 Acetaminophen 325 Mg Tablet PO Q6H PRN Pain, Mild (Pain Scale 1-3) Lactulose 10 gm 09/21/20 22:30 Lactulose 20 Gm/30 Ml Solution PO DAILY PRN constipation Levetiracetam 500 mg 09/24/20 09:00 09/24/20 08:53 Levetiracetam 500 Mg Tablet PO 500 mg BID MARIELY Administration Levofloxacin 750 mg 09/24/20 09:00 09/24/20 08:53 Levofloxacin 750 Mg Tablet PO 750 mg Q48H MARIELY Administration Levothyroxine Sodium 75 mcg 09/22/20 06:00 09/24/20 05:45 Levothyroxine Sodium 75 Mcg Tablet PO 75 mcg DAILY@0600 MARIELY Administration Melatonin 6 mg 09/21/20 21:28 09/22/20 00:11 Melatonin 3 Mg Tablet PO 6 mg BEDTIME PRN Administration Insomnia Midodrine 5 mg 09/22/20 09:00 09/24/20 14:07 Midodrine Hcl 5 Mg Tablet PO 5 mg TID MARIELY Administration Omeprazole 40 mg 09/22/20 06:30 09/24/20 05:45 Omeprazole 40 Mg Capsule.Dr PO 40 mg DAILY@0630 MARIELY Administration Sodium Biphosphate/Sodium Phosphate 133 ml 09/22/20 18:00 09/23/20 10:28 Sodium Phosphate,[place]-Dibasic 133 Ml Enema [place] 133 ml ONCE MARIELY Administration Sodium Chloride 3 ml 09/22/20 00:00 09/24/20 08:53 0.9 % Sodium Chloride Flush 3 Ml Syringe IVFLUSH 3 ml QSHIFT MARIELY Administration Trazodone HCl 100 mg 09/22/20 21:00 09/23/20 21:40 Trazodone Hcl 100 Mg Tablet PO 100 mg BEDTIME MARIELY Administration Labs CBC & Chem 7: 09/24/20 05:20 09/24/20 05:20 Labs: Laboratory Results - last 24 hr 09/24/20 09/24/20 05:20 05:20 WBC 5.4 RBC 3.50 L Hgb 9.8 L Hct 32.5 L MCV 92.9 D MCH 28.0 MCHC 30.2 L RDW 16.9 H Plt Count 184 MPV 11.7 Absolute Nucleated RBC 0.020 H Nucleated RBC % (auto) 0.4 H Sodium 137 Potassium 4.4 Chloride 107 Carbon Dioxide 21 L Anion Gap 13 BUN 14 Creatinine 1.32 Estim Creat Clear Calc 28.1 Estimated GFR 52 Random Glucose 74 Calcium 8.5 Microbiology Microbiology Results: Microbiology 09/21/20 22:48 Blood Culture - Preliminary Blood - Venous No growth after 48 hours. 09/21/20 22:48 Blood Culture - Preliminary Blood - Venous No growth after 48 hours. Quality Stroke Does the patient have a stroke diagnosis?: No VTE Prior VTE?: No VTE Risk Level:: Medical - low VTE Device Contraindication: N/A - Device Ordered VTE Drug Contraindication: Treatment Not Indicated Assessment and Plan (1) Acute GI bleeding: Status: Acute (2) Acute blood loss anemia: Status: Acute Assessment and Plan: hospital d#4 79yo M with dementia, CKD, HTN, GERD, AF on apixaban presented with leg cramps admitted for acute blood loss anemia, FOBT positive # acute blood loss anemia # GI bleed - EGD done 09/22/20, per Dr Loyd: ESOPHAGUS: Tortuous esophagus with increased tertiary contractions without stricture or ring. GE junction at 40 cms. No esophagitis or Romero's. STOMACH: Mild gastric erythema with decreased fundal folds. A 5-6 mm benign appearing polyp just distal to GEJ. No blood in the upper GI tract or potential source of blood loss noted on EGD. 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 Given patient's dementia, will hold off colonoscopy for now and discuss further management with patient's son - Hb stable after 2nd unit pRBCs, B12 level normal - discussed possibility of C-scope with pt's HCP/nephew Simba by phone. Given that this would involve placing NG tube to get pt to take the preparation and would likely cause him quite a bit of discomfort, along with risks from the procedure, and in light of the pt's dementia/limited lifespan, at this point decision is made to not pursue colonocopy, to monitor Hb, and to leave off apixaban # Klebsiella pneumonaie UTI with microscopic hematuria - levofloxacin d#06/18, repeat UA after ABX course to ensure hematuria resolves, Klebsiella resistant only to ampicillin # AF - held apixaban due to GI bleed - rate-controlled # sz disorder - continue home levetiracetam. 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
[2020-09-24] MEDS: Lactulose 20 GM/30 ML SOLUTION 10 GM PO (18:03)
[2020-09-24] MEDS: traZODone HCL 100 MG TABLET PO (21:56)
[2020-09-25] MEDS: 0.9 % Sodium Chloride Flush 3 ML SYRINGE IVFLUSH ×2 (00:16→09:16)
[2020-09-25 03:37] VITALS: BP 131/76; PULSE 68; RESP 18; TEMP 36.2; O2SAT 98
[2020-09-25] MEDS: Omeprazole 40 MG CAPSULE.DR PO (05:42)
[2020-09-25] MEDS: Levothyroxine Sodium 75 MCG TABLET PO (05:42)
[2020-09-25 06:48] LABS: Hematocrit 30.6 % (42-52); Hemoglobin 9.5 g/dl (14.0-18.0)
[2020-09-25 07:31] VITALS: BP 120/62; PULSE 60; RESP 18; TEMP 36.6; O2SAT 100
[2020-09-25] MEDS: Midodrine HCl 5 MG TABLET PO ×2 (09:16→15:30)
[2020-09-25] MEDS: levETIRAcetam 500 MG TABLET PO (09:16)
--- NOTE | 2020-09-25 10:28 | MHC.SL.SWA ---
Speech Pathologist Impression: Risk of Aspiration Oral Phase Dysphagia Risk of Aspiration Due to: Poor PO Intake Dysphasia Diet Status: Liquid Consistency and Strategies for Safe Swallow: Liquid Intake Recommendation: Thin Liquid Intake Strategies: Unrestricted Solid Food Consistency: Dietary Recommendations: Pureed (NDD1) Oral Medication Intake: Crushed with Puree Compensatory Strategies and Precautions to be Taken for Safe Swallow: Sitting Upright (90 deg) Liquids from Cup Liquids from Straw Small Bites and Sips Alternate Liquids/Solids Supervision While Eating and Drinking for Safe Swallow: Total Assistance Recommendation for Speech: Inpatient Speech Therapy Public Area Supervisor Clinican/Clinical Fellow: No Supervisory Statement: I have reviewed and agree with the student/clinical fellow's documentation: N/A Speech Language Pathologist: Saba Bonilla M.A., CCC-PROJECT DEVELOPMENT MANAGER
[2020-09-25 11:58] VITALS: BP 94/54; PULSE 64; RESP 16; TEMP 36.4; O2SAT 100
--- NOTE | 2020-09-25 13:36 | P.DS_ITS ---
DS: Providers Provider Date of Service: 09/25/20 Date of admission: 09/21/20 21:28 Primary care physician: Naya Fermin MD Consults: 09/21/20 21:31 Consult to Gastroenterology Routine Consulting Provider: Ewelina Major Reason for consultation: anemia/guaiac positive stool DS: Diagnosis Discharge Diagnosis (1) Acute GI bleeding: Status: Acute (2) Acute blood loss anemia: Status: Acute (3) Urinary tract infection: Status: Acute (4) Dementia: Status: Acute (5) Malnutrition of moderate degree: Status: Acute (6) Microscopic hematuria: Status: Acute DS: Medications Discharge Medications Home Medications: Home Medications Medication Instructions Recorded Confirmed lactulose 15 ml PO DAILY PRN 09/21/20 09/21/20 levetiracetam 1 tab PO BID 09/21/20 09/21/20 levothyroxine 1 tab PO DAILY 09/21/20 09/21/20 midodrine 1 tab PO TID 09/21/20 09/21/20 omeprazole 1 cap PO DAILY 09/21/20 09/21/20 trazodone 2 tab PO BEDTIME 09/21/20 09/21/20 Previous Rx's Medication Instructions Recorded levofloxacin 750 mg PO Q48H #2 tab 09/25/20 DS: Summary Hospital Course Hospital Course: From admission H+P by hospitalist Kaiden Vicetne, 09/21/20: 79-year-old male with a past medical history of orthostatic hypotension on mi dodrine,, dementia, atrial fibrillation on Eliquis, chronic kidney disease, GERD presented to the hospital with a chief complaint of Leg cramps. patient is alert and awake, minimally communicative; lying comfortably in the bed Most of the history obtained from the patient's healthcare proxy Simba Cohen - [phone]. also spoke to the ER staff. Reportedly patient has been complaining of like g the past 1 week; has been receiving Tylenol every 4 hours; as he continued to have the symptoms family decided to bring him to the ER for further evaluation. Family reported that patient takes Eliquis for his atrial fibrillation. Family denies patient having any blood in the stool or black stools. Denies any vomiting/ blood in the vomitus. Patient has been moaning secondary to leg pains. Family also reports that patient is mostly bedbound, able to swallow regular food okay without any difficulty. Review of all other systems is negative except mentioned above ER course: Per ER team patient clinically appears stable, vitals stable, on rectal exam noted to have brown stooling but guaiac positive; CBC showed hemoglobin of 7.3. Ordered 1 unit of PRBC. Admitted for further management. The patient was admitted to the [facility]. Apixaban was stopped. GI was consulted. An EGD done on 09/22/20 showed , per Dr Loyd: ESOPHAGUS: Tortuous esophagus with increased tertiary contractions without stricture or ring. GE junction at 40 cms. No esophagitis or Romero's. STOMACH: Mild gastric erythema with decreased fundal folds. A 5-6 mm benign appearing polyp just distal to GEJ. No blood in the upper GI tract or potential source of blood loss noted on EGD. 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 He was transfused 2 units packed red blood cells. B12 level was normal. Hemoglobin remained stable. He was given bowel regimen including enema for disimpaction. Given his dementia and inability to tolerate a colonoscopy preparation, in light of stability in hemoglobin, colonoscopy was not pursued, after discussion with family. Apixaban was discontinued permanently. A repeat CBC in 1 week should be done. He was treated for Klebsiella pneumoniae UTI (resistant only to ampicillin) with levofloxacin. He had microscopic hematuria and UA should be repeated in 1 week to ensure this resolves. SERVICE DELIVERY MANAGER was consulted given his dementia. Dietary recommendation is pureed [NDD1] solids, thin liquids, 1:1 for all feeds, and all pills crushed. Ensure 1 can tid was started due to moderate malnutrition. He was discharged home with resumption of [facility] services. Time Spent with Patient Time attestation: Total time spent providing and/or coordinating discharge services: 40 Discharge coordination time: Greater than 30 minutes Quality: Stroke Does the patient have a stroke diagnosis?: No Physical Exam Vital Signs: Vital Signs: Last Vital Signs Temp 97.6 F 09/25/20 11:58 Pulse 64 09/25/20 11:58 Resp 16 09/25/20 11:58 BP 94/54 L 09/25/20 11:58 Pulse Ox 100 09/25/20 11:58 Body Mass Index 16.1 Gen: in no acute distress, malnourished HEENT: sclera anicteric, moist mucus membranes, pale mucosa Neck: supple Lungs: clear to auscultation bilaterally Heart: regular rate and rhythm Abd: soft, non-tender, non-distended Ext: no edema Skin: warm/well-perfused Neuro: disoriented Psych: impaired insight DS: Data Data Completed and Pending Completed studies during hospitalization [Text1]: Laboratory Results WBC 5.4 X10*3/uL (4.8-10.8) 09/24/20 05:20 RBC 3.50 X10*6/uL (4.60-5.80) L 09/24/20 05:20 Hgb 9.5 g/dl (14.0-18.0) L 09/25/20 05:43 Hct 30.6 % (42-52) L 09/25/20 05:43 MCV 92.9 fL (80-98) D 09/24/20 05:20 MCH 28.0 pg (27.0-33.0) 09/24/20 05:20 MCHC 30.2 g/dl (31.0-36.0) L 09/24/20 05:20 RDW 16.9 % (11.0-16.0) H 09/24/20 05:20 Plt Count 184 X10*3/uL (160-400) 09/24/20 05:20 MPV 11.7 fL (9.4-12.4) 09/24/20 05:20 Immature Gran % (Auto) 0.6 % (0.0-0.4) H 09/22/20 07:22 Neut % (Auto) 59.3 % (45-73) 09/22/20 07:22 Lymph % (Auto) 27.4 % (20-40) 09/22/20 07:22 Crane % (Auto) 10.8 % (2-11) 09/22/20 07:22 Eos % (Auto) 1.3 % (0-4) 09/22/20 07:22 Baso % (Auto) 0.6 % (0-2) 09/22/20 07:22 Lymph # (Auto) 1.5 X10*3/uL (1.2-4.9) 09/22/20 07:22 Crane # (Auto) 0.6 X10*3/uL (0.1-1.2) 09/22/20 07:22 Eos # (Auto) 0.1 X10*3/uL (0.0-0.4) 09/22/20 07:22 Baso # (Auto) 0.0 X10*3/uL (0.0-0.2) 09/22/20 07:22 Abs Immat Gran (auto) 0.03 X10*3/uL (0.00-0.03) 09/22/20 07:22 Absolute Neuts (auto) 3.2 X10*3/uL (2.0-8.3) 09/22/20 07:22 Absolute Nucleated RBC 0.020 X10*3/uL (0.0-0.012) H 09/24/20 05:20 Nucleated RBC % (auto) 0.4 /100WBC (0.0-0.2) H 09/24/20 05:20 Sodium 137 mmol/L (135-145) 09/24/20 05:20 Potassium 4.4 mmol/L (3.3-5.1) 09/24/20 05:20 Chloride 107 mmol/L (96-108) 09/24/20 05:20 Carbon Dioxide 21 mmol/L (22-29) L 09/24/20 05:20 Anion Gap 13 (12-20) 09/24/20 05:20 BUN 14 mg/dL (9-16) 09/24/20 05:20 Creatinine 1.32 mg/dL (0.5-1.4) 09/24/20 05:20 Estim Creat Clear Calc 28.1 09/24/20 05:20 Estimated GFR 52 09/24/20 05:20 Random Glucose 74 mg/dL (60-115) 09/24/20 05:20 Calcium 8.5 mg/dL (8.4-10.2) 09/24/20 05:20 Magnesium 2.0 mg/dL (1.6-2.6) 09/22/20 07:22 Iron 234 mcg/dL (45-160) H 09/22/20 07:22 TIBC 304 mcg/dL (228-428) 09/22/20 07:22 % Saturation 77 % (15-50) H 09/22/20 07:22 Unsat Iron Binding 70 ug/dL 09/22/20 07:22 Ferritin 9 ng/mL (20-250) L 09/22/20 07:22 Total Bilirubin 0.4 mg/dL (0.0-1.0) 09/21/20 20:58 AST 24 U/L (5-37) 09/21/20 20:58 ALT 12 U/L (0-40) 09/21/20 20:58 Alkaline Phosphatase 96 U/L (39-117) 09/21/20 20:58 Troponin I High Sens 8.8 ng/L (<3.5-35.0) 09/21/20 19:59 Total Protein 6.1 g/dL (6.5-8.0) L 09/21/20 20:58 Albumin 3.1 g/dL (3.5-5.0) L 09/21/20 20:58 Vitamin B12 427 pg/mL (200-900) 09/23/20 04:34 Folate 14.6 ng/mL (> or = 4.0) 09/23/20 04:34 TSH 0.50 uIU/mL (0.32-4.0) 09/21/20 20:58 Urine Color YELLOW 09/21/20 19:59 Urine Appearance HAZY 09/21/20 19:59 Urine pH 6.0 (5.0-8.0) 09/21/20 19:59 Ur Specific [place] 1.025 (1.005-1.025) 09/21/20 19:59 Urine Protein NEG MG/DL (NEG-TRACE) 09/21/20 19:59 Urine Glucose (UA) NEG MG/DL (NEG) 09/21/20 19:59 Urine Ketones NEG MG/DL (NEG) 09/21/20 19:59 Urine Blood 1+ (NEG) H 09/21/20 19:59 Urine Nitrite NEG (NEG) 09/21/20 19:59 Ur Leukocyte Esterase 1+ (NEG) H 09/21/20 19:59 Urine RBC 5-9 /HPF (0) H 09/21/20 19:59 Urine WBC 50-75 /HPF (0-4) H 09/21/20 19:59 Urine WBC Clumps NOTED 09/21/20 19:59 Ur Squamous Epith Cells NONE /LPF 09/21/20 19:59 Urine Bacteria 1+ /LPF 09/21/20 19:59 Urine Mucus TRACE /LPF 09/21/20 19:59 Stool Occult Blood POSITIVE (NEGATIVE) 09/21/20 20:58 COVID-19 (ROSA) Negative (Negative) 09/21/20 20:58 COVID-19 Clin Com See Note 09/21/20 20:58 Blood Type O Positive 09/21/20 20:58 Antibody Screen NEGATIVE 09/21/20 20:58 Crossmatch See Detail 09/21/20 20:58 Impressions Chest X-Ray 09/21/20 19:08 IMPRESSION: 1. Low lung volumes with bibasilar atelectasis. 2. Nonspecific gaseous distention of bowel loops in the abdomen partially included in the [id number] of this chest x-ray. Please correlate clinically. Abdomen/Pelvis CT 09/21/20 22:20 IMPRESSION: Moderate stool retention with a stool ball within the rectum. No definitive findings of stercoral colitis. No specific findings to explain patient's symptoms. Venous Duplex 09/22/20 10:05 IMPRESSION: Very limited exam. Common femoral, superficial femoral, profunda and popliteal veins are not visualized. The visualized bilateral calf veins appear patent. Discharge Plan Discharge Patient Disposition: Home Health Service Discharge Diagnosis: anemia, GI bleed, UTI, malnutrition [facility]Other[facility] - 1 Week (WILL RESUME SERVICES TOMORROW) Naya Fermin MD [Primary Care Provider] - 1 Week Discharge Medications: New levofloxacin 750 mg Tablet 750 mg PO Q48H Qty: 2 RF: 0 Continued trazodone 50 mg tablet 2 tab PO BEDTIME RF: 0 levetiracetam 500 mg tablet 1 tab PO BID RF: 0 midodrine 5 mg tablet 1 tab PO TID RF: 0 omeprazole 40 mg capsule,delayed release(DR/EC) 1 cap PO DAILY RF: 0 levothyroxine 75 mcg tablet 1 tab PO DAILY RF: 0 lactulose 10 gram/15 mL solution 15 ml PO DAILY PRN (Reason: constipation) RF: 0 Discontinued Eliquis 2.5 mg tablet 1 tab PO BID RF: 0 Discharge Orders: Discharge Order (Routine); Ordered 09/25/20 Ordered By: Heather Lim Diet: advance to usual diet and other Activity on Discharge: As tolerated Stand Alone Forms: Patient Portal Discharge page Other Ambulatory Orders: Complete Blood Count Auto Diff (Routine) Timeframe: 1 Week Facility: [facility] - Location: Laboratory Ordered By: Heather jha Microscopic (Routine) Timeframe: 1 Week Facility: [facility] - Location: Laboratory Ordered By: Heather Lim Activity Restrictions/Additional Instructions: diet: PUREED SOLIDS, THIN LIQUIDS, 1:1 FOR ALL FEEDING, CRUSH ALL TABLETS, and take ENSURE 1 CAN 3 TIMES A DAY Care Plan Goals: avoiding GI bleeds avoiding aspiration treating UTI Health Concerns: anemia, GI bleed, UTI, malnutrition Plan of Treatment: stop apixaban; check CBC in 1 week take levofloxacin 750 mg every other day for 2 more doses; check UA in 1 week feeding and supplements as above: diet: PUREED SOLIDS, THIN LIQUIDS, 1:1 FOR ALL FEEDING, CRUSH ALL TABLETS, and take ENSURE 1 CAN 3 TIMES A DAY Assessment: as above Patient Instructions: Malnutrition (DC), Anorexia in Older Adults (GEN)
--- NOTE | 2020-09-25 14:07 | MHC.CM.PN ---
Patient has been medically cleared for dc to home today, with services. JEANNIE has informed [facility] (Daniela @ [phone]) of today's dc and will fax dc summary to her at [phone], as soon as MD signs it.JEANNIE spoke with Niece/HCP/Kendra(who Patient lives with) at [phone] who is aware of and in agreement with the dc plan. Patient will dc to home via [facility] at 4:30 PM.Last IMM addressed on 09/23/20.
== END 2020-09-25 17:03 | disposition home health service (06) | DRG 689 ==
LOC: HO.ED 21:03 → HO.EDOVER 21:38 → HO.IMC 09-22 15:57
PROVIDERS: Internal Medicine Gastroenterology; Admitting Provider Hospitalist; Emergency Provider Emergency Medicine; PCP Internal Medicine; Visit Provider Family Medicine
PROC: 0DJ08ZZ Inspection of Upper Intestinal Tract, Via Natural or Artificial Opening Endoscopic (ICD-10-PCS; CPT 43235; principal; 2020-09-22 13:20)
DX: N39.0 Urinary tract infection, site not specified (principal); K29.41 Chronic atrophic gastritis with bleeding; D62 Acute posthemorrhagic anemia; E44.0 Moderate protein-calorie malnutrition; Z68.1 Body mass index [BMI] 19.9 or less, adult; I48.91 Unspecified atrial fibrillation; G40.909 Epilepsy, unspecified, not intractable, without status epilepticus; R31.29 Other microscopic hematuria; B96.1 Klebsiella pneumoniae [K. pneumoniae] as the cause of diseases classified elsewhere; I95.1 Orthostatic hypotension; E03.9 Hypothyroidism, unspecified; K31.7 Polyp of stomach and duodenum; Z20.822 Contact with and (suspected) exposure to COVID-19; F03.90 Unspecified dementia, unspecified severity, without behavioral disturbance, psychotic disturbance, mood disturbance, and anxiety; Z79.890 Hormone replacement therapy; Z79.899 Other long term (current) drug therapy; Z66 Do not resuscitate
CPT/HCPCS: 36415; 71045; 74176; 80048; 80053; 81001; 81003; 82272; 82607; 82728; 82746; 83540; 83735; 84443; 84484; 85014; 85018; 85025; 85027; 86850; 86900; 86901; 86923; 87040; 87086; 87088; 87186; 87635; 92610; 93005; 93970; 99285; J1953; J1956; J2370; P9016

== ENCOUNTER 2020-10-14 14:27 | Emergency (ER) | payer MEDICARE, SELFPAY ==
--- NOTE | ~2020-10-14 | XR_ITS ---
EXAMINATION: XR ABDOMEN KUB CLINICAL INDICATION: Constipation. Assess stool burden. COMPARISON: None TECHNIQUE: AP x2 views of the abdomen. FINDINGS: There is moderate stool throughout the colon. Rectum is distended to 6.5 cm in diameter with stool. There is scattered gas in the bowel of normal caliber. There is no gaseous dilatation of bowel or abnormal collections of gas. Lung bases are clear. There are no visible urinary tract calculi. There are calcifications pelvic vasculature. Degenerative changes are present in the lower thoracic and lumbosacral spine. XR/XR KUB IMPRESSION: Moderate stool throughout colon to rectum. No gaseous dilatation of bowel. Lung bases clear.
--- NOTE | ~2020-10-14 | XR_ITS ---
EXAMINATION: XR CHEST CLINICAL INFORMATION: Hypertension COMPARISON: Chest radiographs 09/21/2020, 10/03/2016 TECHNIQUE: Upright AP view of the chest was obtained. FINDINGS: The heart is normal in size. The vascularity is normal. The lungs are clear. No hyperinflation. The costophrenic sulci are well-defined. The hilar and mediastinal contours are unremarkable. No visible acute bony abnormality. XR/XR chest 1V IMPRESSION: Unremarkable examination.
--- NOTE | ~2020-10-14 | CT_ITS ---
EXAMINATION: CT HEAD WITHOUT CONTRAST CLINICAL INFORMATION: Hypertension COMPARISON: CT head noncontrast 01/03/2018, 03/05/2017 TECHNIQUE: Contiguous axial imaging was performed from the skull base to vertex without intravenous administration of contrast. Additional 2-D coronal and sagittal reformatted images are generated on the CT workstation and uploaded to PACS. This CT examination was performed using dose optimization techniques as appropriate, variously including the following: *Automated exposure control *Adjustment of mA and/or kV according to patient size (this includes techniques or standardized protocols for targeted exams where dose is matched to indication/reason for exam; i.e. extremities or head) *Use of iterative reconstruction technique DLP: 1309 mGy-cm FINDINGS: Exam is graded by patient motion with more numerous artifacts. These are present despite the additional sequences obtained. There is no gross intracranial hemorrhage, hematoma, or extra-axial fluid collection. There are generalized atrophic changes with mild prominence of the ventricles and prominence of the cortical sulci and fissures and cisterns. There is no midline shift or acute visible territorial infarct or mass lesion. Periventricular white matter gliosis is again seen consistent with small vessel ischemic changes. No air-fluid level seen in the sinuses or mastoids. CT/CT head/brain wo con IMPRESSION: 1. Exam degraded by patient motion, persistent on additional sequences. 2. No gross acute intracranial abnormality. Generalized atrophic changes.
--- NOTE | 2020-10-14 14:39 | ED_ITS ---
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 note MD complaint: HTN Onset (ago): unknown Severity: mild Relieving factors: none Exacerbating factors: none Associated symptoms: denies other symptoms Treatments prior to arrival: none Related Data Home Medications Medication Instructions Recorded Confirmed lactulose 10 gram/15 mL oral 15 ml PO DAILY PRN 09/21/20 09/21/20 solution levetiracetam 500 mg tablet 1 tab PO BID 09/21/20 09/21/20 levothyroxine 75 mcg tablet 1 tab PO DAILY 09/21/20 09/21/20 midodrine 5 mg tablet 1 tab PO TID 09/21/20 09/21/20 omeprazole 40 mg capsule,delayed 1 cap PO DAILY 09/21/20 09/21/20 release trazodone 50 mg tablet 2 tab PO BEDTIME 09/21/20 09/21/20 Previous Rx's Medication Instructions Recorded levofloxacin 750 mg tablet 750 mg PO Q48H #2 tab 09/25/20 Allergies Allergy/AdvReac Type Severity Reaction Status Date / Time Penicillins [PENICILLINS] Allergy Unknown UNKNOWN Verified 09/21/20 22:16 Review of Systems Review of Systems: ROS unable to be obtained due to altered mental status PMFSH Past Medical History Attestation statement: The following information was validated with the patient. Medical History Acute blood loss anemia Acute GI bleeding Afib Anemia Chronic GERD Dementia Hypothyroid Kidney disease Microscopic hematuria Orthostatic hypotension Social History Social History Household Members: Family and Children Housing: House Unable to assess alcohol history related to: Unable to respond Patient Tobacco Use Status: Tobacco use Unknown Advance Directives: Yes Advance Directives on File: Yes Advance Directives Date on File: 09/22/20 service: No Physical Exam Vital Signs: Vital Signs: Last Vital Signs Temp 97.7 F 10/14/20 14:52 Pulse 63 10/14/20 14:52 Resp 16 10/14/20 14:52 BP 194/97 H 10/14/20 14:52 Pulse Ox 100 10/14/20 14:52 Body Mass Index 18.1 Appearance: Alert. Tracking eyes. No acute distress. Eyes: Pupils equal, round and reactive to light. ENT: Pharynx dry MM Neck: Normal inspection. Neck supple. CVS: Normal heart rate and rhythm. Pulses normal. Respiratory: No respiratory distress. Breath sounds normal. Abdomen: Soft and does not grimace Skin: Skin warm and dry. Normal skin color. Normal skin turgor. Extremities: No lower extremity edema. No calf ttp Neuro: Confused. Does not speak. No motor deficit. No sensory deficit. Course Course Course Narrative: signed out to TERRENCE Maravilla pending UA, labs, constipation treatmenta nd discussion with CM Medical Decision Making [facility] Narrative Medical decision making narrative: 80 yo male with HTN found to be HTNive with VNA, severe dementia, hx of UTI, no obvious trauma, no complaints but he cannot perform a full exam - usually is on midodrine and not on BP medications, will obtain basic labs, UA, CT head for ICH, xrays of chest/abdomen (constipation) discussion with family in terms of goals of care Lab Data Result diagrams: 10/14/20 15:43 10/14/20 15:43 Labs: Lab Results 10/14/20 10/14/20 10/14/20 Range/Units 15:43 15:43 15:44 WBC 10.4 (4.8-10.8) X10*3/uL RBC 3.98 L (4.60-5.80) X10*6/uL Hgb 11.3 L (14.0-18.0) g/dl Hct 35.2 L (42-52) % MCV 88.4 (80-98) fL MCH 28.4 (27.0-33.0) pg MCHC 32.1 (31.0-36.0) g/dl RDW 19.9 H (11.0-16.0) % Plt Count 207 (160-400) X10*3/uL MPV 11.3 (9.4-12.4) fL Immature Gran % (Auto) 0.3 (0.0-0.4) % Neut % (Auto) 66.4 (45-73) % Lymph % (Auto) 23.0 (20-40) % [place] % (Auto) 8.1 (2-11) % Eos % (Auto) 1.8 (0-4) % Baso % (Auto) 0.4 (0-2) % Lymph # (Auto) 2.4 (1.2-4.9) X10*3/uL [place] # (Auto) 0.8 (0.1-1.2) X10*3/uL Eos # (Auto) 0.2 (0.0-0.4) X10*3/uL Baso # (Auto) 0.0 (0.0-0.2) X10*3/uL Abs Immat Gran (auto) 0.03 (0.00-0.03) X10*3/uL Absolute Neuts (auto) 6.9 (2.0-8.3) X10*3/uL Absolute Nucleated RBC 0.000 (0.0-0.012) X10*3/uL Nucleated RBC % (auto) 0.0 (0.0-0.2) /100WBC Sodium 139 (135-145) mmol/L Potassium 4.8 (3.3-5.1) mmol/L Chloride 106 (96-108) mmol/L Carbon Dioxide 26 (22-29) mmol/L Anion Gap 12 (12-20) BUN 21 H (9-16) mg/dL Creatinine 1.56 H (0.5-1.4) mg/dL Estim Creat Clear Calc 27.0 Estimated GFR 43 Random Glucose 89 (60-115) mg/dL Calcium 8.9 (8.4-10.2) mg/dL Magnesium 2.1 (1.6-2.6) mg/dL Total Bilirubin 0.4 (0.0-1.0) mg/dL Direct Bilirubin 0.2 (0.0-0.5) mg/dL AST 32 (5-37) U/L ALT 18 (0-40) U/L Alkaline Phosphatase 107 (39-117) U/L Troponin I High Sens 7.9 (<3.5-35.0) ng/L Total Protein 7.0 (6.5-8.0) g/dL Albumin 3.7 (3.5-5.0) g/dL Discharge Plan Discharge Clinical Impression: Constipation, HTN (hypertension) Prescriptions: No [facility] trazodone 50 mg tablet 2 tab PO BEDTIME RF: 0 levetiracetam 500 mg tablet 1 tab PO BID RF: 0 midodrine 5 mg tablet 1 tab PO TID RF: 0 omeprazole 40 mg capsule,delayed release(DR/EC) 1 cap PO DAILY RF: 0 levothyroxine 75 mcg tablet 1 tab PO DAILY RF: 0 lactulose 10 gram/15 mL solution 15 ml PO DAILY PRN (Reason: constipation) RF: 0 levofloxacin 750 mg Tablet 750 mg PO Q48H Qty: 2 RF: 0
[2020-10-14 14:47] VITALS: BP 200/103; PULSE 63; RESP 18; TEMP 36.8; O2SAT 98; BMI 18.1
[2020-10-14 14:52] VITALS: BP 194/97; PULSE 63; RESP 16; TEMP 36.5; O2SAT 100
--- NOTE | 2020-10-14 15:20 | ECG_ITS ---
Test Reason : HTN Blood Pressure : / mmHG Vent. Rate : 080 BPM Atrial Rate : 000 BPM P-R Int : 000 ms QRS Dur : 064 ms QT Int : 400 ms P-R-T Axes : 000 019 065 degrees QTc Int : 461 ms Poor data quality Normal sinus rhythm Nonspecific T wave abnormality Abnormal ECG When compared with ECG of 21-SEP-2020 20:09, Poor data quality in current ECG precludes serial comparison Referred By: Angélica Ann Electronically Signed By:Heri Westfall
[2020-10-14 15:47] LABS: MANUAL DIFF FLAG NO
[2020-10-14 15:50] LABS: Basophils Percent Auto 0.4 % (0-2); Eosinophils Absolute Auto 0.2 X10*3/uL (0.0-0.4); Eosinophils Percent Auto 1.8 % (0-4); Hematocrit 35.2 % (42-52); Hemoglobin 11.3 g/dl (14.0-18.0); Imm Gran Abs Auto 0.03 X10*3/uL (0.00-0.03); Imm Gran Pct Auto 0.3 % (0.0-0.4); Lymphocytes Absolute Auto 2.4 X10*3/uL (1.2-4.9); Mean Corpuscular HGB Conc 32.1 g/dl (31.0-36.0); Mean Corpuscular Hemoglobin 28.4 pg (27.0-33.0); Mean Corpuscular Volume 88.4 fL (80-98); Mean Platelet Volume 11.3 fL (9.4-12.4); Monocytes Absolute Auto 0.8 X10*3/uL (0.1-1.2); Monocytes Percent Auto 8.1 % (2-11); Neutrophils Absolute Auto 6.9 X10*3/uL (2.0-8.3); Neutrophils Percent Auto 66.4 % (45-73); Platelet Count 207 X10*3/uL (160-400); Red Blood Count 3.98 X10*6/uL (4.60-5.80); Red Cell Distribution Width 19.9 % (11.0-16.0); White Blood Count 10.4 X10*3/uL (4.8-10.8)
[2020-10-14 16:12] LABS: Alanine Aminotransferase 18 U/L (0-40); Albumin Level 3.7 g/dL (3.5-5.0); Alkaline Phosphatase 107 U/L (39-117); Aspartate Amino Transferase 32 U/L (5-37); Bilirubin Direct 0.2 mg/dL (0.0-0.5); Bilirubin Total 0.4 mg/dL (0.0-1.0); Blood Urea Nitrogen 21 mg/dL (9-16); Calcium 8.9 mg/dL (8.4-10.2); Estimated Glomerular Filt Rate 43; Glucose Random 89 mg/dL (60-115); Magnesium 2.1 mg/dL (1.6-2.6)
[2020-10-14 16:15] LABS: Troponin-I High Sensitivity 7.9 ng/L (<3.5-35.0)
[2020-10-14 16:22] LABS: Anion Gap 12 (12-20); Carbon Dioxide 26 mmol/L (22-29); Chloride 106 mmol/L (96-108); Potassium 4.8 mmol/L (3.3-5.1); Sodium 139 mmol/L (135-145)
[2020-10-14] MEDS: 0.9 % Sodium Chloride 1,000 ML 999 ML IVCONT (16:42)
[2020-10-14 16:43] VITALS: BP 165/80; PULSE 71; RESP 14
[2020-10-14] MEDS: Lactulose 20 GM/30 ML SOLUTION 30 GM PO (16:50)
--- NOTE | 2020-10-14 17:49 | MHC.CM.ED ---
CM met with Simba Cohen with Uzbek speaking staff, as HCP does not speak Panamanian. Pt is non-verbal. Explained that pt is constipated and was given some medication to help with stool evacuation. States pt has prescription medication for this. Is unsure if pt had stool today. Simba states he does not want CPR if his fathers heart stops or he stops breathing. Simba states he is always asked this question and is somewhat irritated that we ask this every time he brings pt into the hospital. CM explained that when the doctor is available, we can complete a MOLST form, which will be placed into the medical record so we do not have to keep asking him about code status. Andrae Thomas. aware of above and will speak with family when work-up is complete. Simba states that if his father is not admitted, then he will gladly take him home. He would rather care for his father at home, as he feels he gets more confused when he is in the hospital. CM to follow for d/c needs.
--- NOTE | 2020-10-14 18:31 | ECG_ITS ---
Test Reason : REPEAT Blood Pressure : / mmHG Vent. Rate : 056 BPM Atrial Rate : 056 BPM P-R Int : 132 ms QRS Dur : 072 ms QT Int : 432 ms P-R-T Axes : 078 015 060 degrees QTc Int : 416 ms Sinus bradycardia with Premature supraventricular complexes Otherwise normal ECG When compared with ECG of 14-OCT-2020 17:54, Sinus rhythm has replaced Atrial fibrillation Referred By: Andrae Maravilla Electronically Signed By:Heri Westfall
[2020-10-14 18:58] VITALS: BP 126/69; PULSE 56; RESP 20; TEMP 36.4; O2SAT 98
[2020-10-14 19:05] LABS: Appearance Urine CLEAR; Color Urine YELLOW; Glucose Urine UA NEG (NEG); Leukocyte Esterase Urine NEG (NEG); Nitrite Urine NEG (NEG); PH 6.5 (5.0-8.0); Urine Blood NEG (NEG); Urine Ketones NEG (NEG); Urine Protein NEG (NEG-TRACE)
--- NOTE | 2020-10-14 19:20 | PC.NURSE ---
AT THIS TIME CASE MANAGEMENT INVOLVED WITH PATIENT. PATIENT STRAIGHT CATHED FOR URINE.
--- NOTE | 2020-10-14 19:48 | PC.NURSE ---
CLIENT IS CASE MANAGEMENT PATIENT. REQUESTED CONSULT TO RX SO PATIENT CAN RECIEVE HIS DAILY MEDICATIONS HERE. PUT IN BY CHANTEL OCAMPO
--- NOTE | 2020-10-14 19:58 | PC.NURSE ---
CLIENTS FAMILY REQUESTING TO SPEAK TO JOSE MIGUEL OCAMPO. JOSE MIGUEL AWARE PENDING FREELANCE WEB DESIGNER TO BEDSIDE. PLAN TO SEND PATIENT HOME SINCE VITALS HAVE IMPROVED.
--- NOTE | 2020-10-14 20:01 | PHA.MEDREC ---
Pharmacy Consult ? Medication Reconciliation Pharmacy has completed the medication reconciliation.
--- NOTE | 2020-10-14 20:49 | PC.NURSE ---
rodrigo at bedside with pallet rectifier and case management rn
[2020-10-14 21:08] VITALS: BP 164/88; PULSE 82; RESP 16; O2SAT 99
--- NOTE | 2020-10-14 21:50 | PC.NURSE ---
Client is free of incontinence sleeping, pending EMS transport back to home.
--- NOTE | 2020-10-14 21:51 | PC.NURSE ---
mosaic worker Flaquita facilitated transport and spoke to patients pct
--- NOTE | 2020-10-14 21:56 | MHC.CM.ED ---
CM met with patient and Andrae Lopez with use of the [employer], video cyber defense forensics analyst to speak with son/HCP Simba Cohen([phone]). Andrae explained plan of care, including new medication for constipation, to hold the midodrine and to have the pt BP checked tomorrow. Per Simba, they are in process of obtaining increase in home care hours. [employer] is [employer]. Simba will take his father home. Will require ambulance transportation. MOLST completed with Andrae Thomas. Pt is DNR/DNI , Do not transfer to hospital, may use IV and Nutrition, undecided on dialysis. Copy sent with ambulance for Lidya at [facility]. Uploaded into [employer] and into [facility]. [facility] EDUCATION MANAGERS is Lidya Smith ([phone]). CM spoke with Lidya regarding plan of care, including Magniesum Citrate, Holding midodrine, and rechecking BP. Also reviewed MOLST. Lidya tells CM she will see pt tomorrow in the am and check his BP. She will set parameters for his midodrine. Discussed son's difficulty with MOLST discussion and not seeming ready to accept a hospice discussion. Per Lidya, she will order a palliative care consult for patient and family. Kylee RN and Andrae OCAMPO aware of above conversation. [facility] booked for next available to transport patient home. CM to follow for d/c needs.
[2020-10-14 21:57] VITALS: BP 117/71; PULSE 78; RESP 18; O2SAT 99
[2020-10-14] MEDS: Magnesium Citrate 300 ML SOLUTION PO (22:09)
== END 2020-10-14 23:26 | disposition home or self-care (01) ==
PROVIDERS: Emergency Provider Emergency Medicine
DX: K59.00 Constipation, unspecified (principal); I10 Essential (primary) hypertension; Z79.899 Other long term (current) drug therapy
CPT/HCPCS: 36415; 70450; 71045; 74018; 80048; 80076; 81003; 83735; 84484; 85025; 93005; 99285

== ENCOUNTER 2022-10-25 17:51 | Emergency (ER) | payer MEDICARE, SELFPAY ==
[2022-10-25 18:46] VITALS: BMI 27.5
--- NOTE | 2022-10-25 19:27 | PC.NURSE ---
Assumed care of pt. through brush fabrication supervisor, determined pt was D/C from [facility] today at [phone] per son, placement of orona was mistake, and is requesting to have it removed. Spoke with provider regarding obtaining records from [facility] for confirmation .
--- OUTSIDE RECORDS SUMMARY | 2022-10-25 19:57 | XMS_ITS | Continuity of Care Document ---
Author Name Unknown Organization [facility] Address [address] [place] [id number]- Care Team Providers Care Sanitation Manager Name Role Phone Roberta Felipe NP Primary Care Physician Encounter [facility] Date(s): 07/24/20 - 08/23/[address] [address]- Allergies, Adverse Reactions, Alerts Substance Reaction Severity Status penicillin rash Active Immunizations Given and Recorded Vaccine Date Status Refusal Reason SARS-CoV-2 (COVID-19) mRNA BNT-162b2 vac 05/17/20 Given SARS-CoV-2 (COVID-19) mRNA BNT-162b2 vac 1 04/26/20 Given influenza virus vaccine, inactivated 12/11/19 Give n influenza virus vaccine, inactivated 03/22/19 Give n influenza virus vaccine, inactivated 01/17/18 Give n influenza virus vaccine, inactivated 02/04/17 Give n influenza virus vaccine, inactivated 01/16/15 Give n influenza virus vaccine, inactivated 01/04/14 Give n influenza virus vaccine, inactivated 2 01/04/14 Gi davonte influenza virus vaccine, inactivated 12/13/12 Give n influenza virus vaccine, inactivated 3 05/31/12 Gi davonte pneumococcal 13-valent vaccine 08/31/16 Given pneumococcal 23-valent vaccine 4 05/31/12 Given tetanus/diphtheria/pertussis, acel(Tdap) 5 05/31/12 Given 1Result Comment: Administered by Dalia Olguin BOOKING AGENT 2Result Comment: incorrect brand entered 3Admin Note: VIS dated 09/13/11 4Admin Note: VIS dated 12/17/08 5Admin Note: VIS dated 04/03/11 Medications apixaban 2.5 mg oral tablet 1 tablet = 2.5 mg, By Mouth, 2 times a day, Transitioning from warfarin to apixaban, # 60 tablet, 11 Refills, Maintenance, 06/24/20 14:40:00 EDT, Tablet, [facility] #[id number], Partial fill upon patient request if the prescription is for a sched... Start Date: 06/24/20 Status: Ordered Artificial Tears preserved solution INSTILL 1 GTT IN BOTH EYES TID PRF DRY EYES Start Date: 04/12/20 Status: Ordered Attends dry-sob size 30x36 Attends dry-sob size 30x36, See Instructions, # 90 each, Refills 11, Tot. Refills 11, Maintenance, Use bed bads as needed at night, up to 3 per night, for urinary incontinence R32, 06/04/20 14:06:00 EDT, Supply Start Date: 06/04/20 Status: Ordered Diapers See Instructions, # 240 each, Refills 11, Tot. Refills 11, Maintenance, Size Large. Use up to 8 daily for urinary incontinence R32, 05/22/20 17:15:00 EST, Supply Start Date: 05/22/20 Status: Ordered lactulose 10 gm/15 ml oral syrup 15 mL = 10 Gm, By Mouth, Daily, PRN as needed for constipation, # 480 mL, 0 Refills, Maintenance, 04/12/20 23:43:00 EST, Syrup, Partial fill upon patient request if the prescription is for a scheduleII opioid drug. Start Date: 04/12/20 Status: Ordered levETIRAcetam 500 mg oral tablet 1 tablet = 500 mg, By Mouth, 2 times a day, # 60 tablet, 2 Refills, Maintenance, 08/08/20 16:52:00 EDT, Tablet, [facility] #[id number], Partial fill upon patient request if the prescription is for a schedule II opioid drug., 160, cm, 07/18/20 15:... Start Date: 08/08/20 Stop Date: 11/06/20 Status: Ordered levothyroxine 75 mcg (0.075 mg) oral tablet 1 tablet = 75 mcg, By Mouth, Daily, for 30 days, TK 1 T PO D, # 30 tablet, 3 Refills, Hard Stop 09/16/20 14:56:00 EDT, 05/19/20 14:56:00 EST, Tablet, [facility] #[id number], Partial fill upon patient request if the prescription is for a schedule... Start Date: 05/19/20 Stop Date: 09/16/20 Status: Ordered levothyroxine 75 mcg (0.075 mg) oral tablet 1 tablet = 75 mcg, By Mouth, Daily, TK 1 T PO D, # 90 tablet, 1 Refills, Maintenance, 09/16/20 14:56:00 EDT, Tablet, [facility] #[id number], Partial fill upon patient request if the prescriptionis for a schedule II opioid drug., 160, cm, ... Start Date: 09/16/20 Stop Date: 01/14/21 Status: Ordered lidocaine 4% mucous membrane solution 1 application, Topically, 2 times a day, PRN Pain , Mild, # 1 each, 0 Refills, Maintenance, 05/22/20 16:43:00 EST, [facility] #[id number], Partial fill upon patient request if the prescription is for a schedule II opioid drug., 1 application Topi... Start Date: 05/22/20 Status: Ordered midodrine 5 mg oral tablet 5 mg, 1, tablet, By Mouth, 3 times a day, lower dose tablet, # 90 tablet, Refills 3, Tot. Refills 3, Maintenance, 06/23/20 14:16:00 EDT, Route to Pharmacy Electronically, [facility] #[id number],Partial fill upon patient request if the prescripti... Start Date: 06/23/20 Stop Date: 10/21/20 Status: Ordered Nutritional Supplements See Instructions, # 90 each, Refills 1, Tot. Refills 1, Maintenance, 1.5 kcal/ml, 237 ml q 8 hrs bymouth, 04/16/20 13:10:00 EST, Supply, 160, cm, 04/16/20 8:39:00 EST, Height, 57.86, kg, 04/12/20 23:44:00 EST, Dry Weight Start Date: 04/16/20 Status: Ordered omeprazole 40 mg oral enteric coated capsule 1 capsule, By Mouth, Daily, # 90 capsule, 0 Refills, Maintenance, 06/23/20 8:58:00 EDT, [facility] #[id number], 160, cm, 05/21/20 9:12:00 EST, Height, 57.86, kg, 04/12/20 23:44:00 EST, Dry Weight Start Date: 06/23/20 Status: Ordered traZODone 50 mg oral tablet 2, tablet, By Mouth, Daily at bedtime, # 60 tablet, Refills 3, Tot. Refills 0, Maintenance, 07/15/20 10:03:00 EDT, Route to Pharmacy Electronically, [facility] #[id number], 160, cm, 05/21/20 9:12:00 EST, Height, 57.86, kg, 04/12/20 23:44:00 EST,... Start Date: 07/15/20 Status: Ordered Urinal See Instructions, # 3 each, Refills 0, Tot. Refills 0, Maintenance, Use as needed for urinating. 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 Z74.01, G31.83, 05/22/20 17:15:00 EST, Supply Start Date: 05/22/20 Status: Ordered wipes wipes, See Instructions, # 5 pack/packet, Refills 11, Tot. Refills 11, Maintenance, Use to clean patient for urinary and stool incontinence R15.9, R32, 08/07/20 13:54:00 EDT, Supply Start Date: 08/07/20 Status: Ordered Problem List Condition Effective Dates Status Health Status Inform ant BPH (benign prostatic hyperplasia)(Confirmed) Active CKD - chronic kidney disease(Confirmed) Active Constipation(Confirmed) Active COVID-19(Confirmed) Active Severe muscle deconditioning(Confirmed) Active Dementia(Confirmed) Active Developmental delay(Confirmed) Active Muscular deconditioning(Confirmed) Active Dry eyes, bilateral(Confirmed) Active History of pulmonary embolism(Confirmed) Active Hearing loss(Confirmed) Active Adult hypothyroidism(Confirmed) Active Cerumen impaction(Confirmed) Active Chronic pruritus, skin(Confirmed) Active Low back pain(Confirmed) Active Hypotension(Confirmed) Active Myalgia(Confirmed) Active Pre-syncope(Confirmed) Active Orthostatic hypotension(Confirmed) Active *[id number] Care Partn er Tracy Hurst(Confirmed) Active Pain of right sacroiliac joint(Confirmed) Active Lewy body dementia(Confirmed) Active Tinea cruris(Confirmed) Active Unintentional weight loss(Confirmed) Active Urinary incontinence(Confirmed) Active Vitamin D deficiency(Confirmed) Active Social History Social History Type Response Smoking Status Former smoker entered on: 08/26/15 Sex
--- OUTSIDE RECORDS SUMMARY | 2022-10-25 19:57 | XMS_ITS | Continuity of Care Document ---
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 Role Phone Destinee JIMENEZ, Roberta Merida Primary Care Physician Encounter [facility] Date(s): 04/12/20 - 04/16/[address] [id number] Discharge Disposition: A-D/C Home Attending Physician: Becca Quezada MD Admitting Physician: Sabrina CENTENO, Tata Go Referring Physician: Not on Staff, Referring MD Allergies, Adverse Reactions, Alerts Substance Reaction Severity Status penicillin rash Active Immunizations Given and Recorded Vaccine Date Status Refusal Reason influenza virus vaccine, inactivated 12/11/19 Give n influenza virus vaccine, inactivated 03/22/19 Give n influenza virus vaccine, inactivated 01/17/18 Give n influenza virus vaccine, inactivated 02/04/17 Give n influenza virus vaccine, inactivated 01/16/15 Give n influenza virus vaccine, inactivated 01/04/14 Give n influenza virus vaccine, inactivated 1 01/04/14 Gi davonte influenza virus vaccine, inactivated 12/13/12 Give n influenza virus vaccine, inactivated 2 05/31/12 Gi davonte pneumococcal 13-valent vaccine 08/31/16 Given pneumococcal 23-valent vaccine 3 05/31/12 Given tetanus/diphtheria/pertussis, acel(Tdap) 4 05/31/12 Given 1Result Comment: incorrect brand entered 2Admin Note: VIS dated 09/13/11 3Admin Note: VIS dated 12/17/08 4Admin Note: VIS dated 04/03/11 Medications Artificial Tears preserved solution INSTILL 1 GTT IN BOTH EYES TID PRF DRY EYES Start Date: 04/12/20 Status: Ordered lactulose 10 gm/15 ml oral syrup 15 mL = 10 Gm, By Mouth, Daily, PRN as needed for constipation, # 480 mL, 0 Refills, Maintenance, 04/12/20 23:43:00 EST, Syrup, Partial fill upon patient request if the prescription is for a scheduleII opioid drug. Start Date: 04/12/20 Status: Ordered levothyroxine 75 mcg (0.075 mg) oral tablet TK 1 T PO D Start Date: 04/12/20 Status: Ordered midodrine 10 mg oral tablet TAKE 1/2 TABLET BY MOUTH THREE TIMES DAILY Start Date: 04/12/20 Status: Ordered mirtazapine 7.5 mg oral tablet 1 tablet = 7.5 mg, By Mouth, Daily at bedtime, # 180 tablet, 0 Refills, Maintenance, 04/15/20 8:13:00 EST, Tablet, Partial fill upon patient request if the prescription is for a schedule II opioid drug. Start Date: 04/15/20 Status: Ordered Nutritional Supplements See Instructions, # 90 each, Refills 1, Tot. Refills 1, Maintenance, 1.5 kcal/ml, 237 ml q 8 hrs bymouth, 04/16/20 13:10:00 EST, Supply, 160, cm, 04/16/20 8:39:00 EST, Height, 57.86, kg, 04/12/20 23:44:00 EST, Dry Weight Start Date: 04/16/20 Status: Ordered omeprazole 40 mg oral enteric coated capsule 1 capsule, By Mouth, Daily, # 90 capsule, 0 Refills, Maintenance, 04/16/20 14:22:00 EST, [facility] #[id number], 160, cm, 04/16/20 8:39:00 EST, Height, 57.86, kg, 04/12/20 23:44:00 EST, Dry Weight Start Date: 04/16/20 Status: Ordered traZODone 50 mg oral tablet TAKE 2 TABLETS BY MOUTH DAILY AT BEDTIME Start Date: 04/12/20 Status: Ordered warfarin 3 mg oral tablet 1 tablet = 3 mg, By Mouth, Daily, # 30 tablet, 0 Refills, Maintenance, 04/16/20 12:40:00 EST, Tablet, [facility] #[id number], Partial fill upon patient request if the prescription is for a schedule II opioid drug., 160, cm, 04/16/20 8:39:00 EST,... Start Date: 04/16/20 Status: Ordered Problem List Condition Effective Dates Status Health Status Inform ant BPH (benign prostatic hyperplasia)(Confirmed) Active CKD - chronic kidney disease(Confirmed) Active Constipation(Confirmed) Active Severe muscle deconditioning(Confirmed) Active Dementia(Confirmed) Active Developmental delay(Confirmed) Active Muscular deconditioning(Confirmed) Active Dry eyes, bilateral(Confirmed) Active History of pulmonary embolism(Confirmed) Active Hearing loss(Confirmed) Active Adult hypothyroidism(Confirmed) Active Cerumen impaction(Confirmed) Active Chronic pruritus, skin(Confirmed) Active Low back pain(Confirmed) Active Hypotension(Confirmed) Active Myalgia(Confirmed) Active Pre-syncope(Confirmed) Active Orthostatic hypotension(Confirmed) Active *[id number] Care Partn er Tracy Hurst(Confirmed) Active Pain of right sacroiliac joint(Confirmed) Active Lewy body dementia(Confirmed) Active Tinea cruris(Confirmed) Active Unintentional weight loss(Confirmed) Active Urinary incontinence(Confirmed) Active Vitamin D deficiency(Confirmed) Active Results Orders for Microbiology Reports Name Date Blood Culture 04/12/20 Blood Culture #2 04/12/20 Microbiology Reports TEST:Blood Culture, Second Order STATUS:Unauthenticated BODY SITE: SOURCE:Blood COLLECTED DATE/TIME:04/12/20 5:25 PM Blood Culture, Second Order SPECIMEN DESCRIPTION : BLOOD RT HND SPECIAL REQUESTS : NONE CULTURE : NO GROWTH 4 DAYS REPORT STATUS : PRELIMINARY REPORT TEST:Blood Culture STATUS:Unauthenticated BODY SITE: SOURCE:Blood COLLECTED DATE/TIME:04/12/20 5:15 PM Blood Culture SPECIMEN DESCRIPTION : BLOOD L HND SPECIAL REQUESTS : NONE CULTURE : NO GROWTH 4 DAYS REPORT STATUS : PRELIMINARY REPORT Radiology Reports * Exam Date Time Procedure Performing Provider Status 04/12/20 5:27 PM Chest Portable Leonor Horta; Auth (Verified) Notes: (Chest Portable) Reason For Exam: Shortness of Breath RESULT: Chest Portable PROCEDURE: Chest Portable CLINICAL INDICATION: 79 years old Male with Reason: Shortness of Breath; Clinical Question(s): CHF. COMPARISON: Multiple chest radiographs 2013 through March 13, 2019. FINDINGS: Portable AP erect view of the chest performed at 5:06 PM. Lines and tubes: Several EKG leads project over the chest. Lungs and pleura: Shallow inspiration again noted. Mild crowding of the pulmonary vascular the lungbases. Lungs otherwise clear as visualized.. No pleural effusions.No evidence of pneumothorax. Heart, mediastinum and ana maría: Moderate unchanged tortuosity and calcification of the thoracic aorta noted. No cardiomegaly or pulmonary venous hypertension. Bones and soft tissues: Moderate degenerative changes in the thoracic spine. IMPRESSION: 1. Shallow inspiration with crowding of the pulmonary vascular the lung bases. No evidence of pneumonia or CHF. Thank you for allowing me to participate in the care of this patient. WSN: [id number] Ordering Physician: Victoria De Los Santos Dictated By: Miles Means MD Dictated Date/Time: 04/12/20 5:33 pm Reviewed By: Miles Means MD Signed By: Miles Means MD Signed Date/Time: 04/12/20 5:33 pm Transcribed By: KESHIA Transcribed Date/Time: 04/12/20 5:30 pm Vital Signs Most recent to oldest [Reference Range]: 1 2 3 Height 160 cm (04/16/20 7:00 AM) 160 cm (04/16/20 12:16 AM) 160 cm (04/15/20 8:49 PM) Weight 58.6 kg (04/12/20 11:44 PM) 58.6 kg (04/12/20 11:15 PM) Oxygen Saturation [94-100 %] 100 % (04/16/20 7:00 AM) 99 % (04/16/20 12:16 AM) 99 % (04/15/20 8:49 PM) Pulse Rate [55-90 bpm] 61 bpm (04/16/20 7:00 AM) 83 bpm (04/16/20 12:16 AM) 76 bpm (04/15/20 8:49 PM) Body Mass Index [18.5-24.99] 22.89 (04/12/20 11:44 PM) Blood Pressure [90-138/55-84 mm Hg] 121/66mm Hg (04/16/20 7:00 AM) 118/85mm Hg (04/16/20 12:16 AM) 150/89mm Hg *H* (04/15/20 8:49 PM) Respiratory Rate [16-30 br/min] 19 br/min (04/16/20 7:00 AM) 18 br/min (04/16/20 12:16 AM) 18 br/min (04/15/20 8:49 PM) Temperature [96.8-100.4 DegF] 98.7 DegF (04/16/20 7:00 AM) 99.3 DegF (04/16/20 12:16 AM) 99.1 DegF (04/15/20 8:49 PM) Mode of Delivery (Oxygen) Room air (04/16/20 7:00 AM) Room air (04/16/20 12:16 AM) Room air (04/15/20 8:49 PM) Blood pressure sites Arm, right (04/16/20 7:00 AM) Arm, left (04/16/20 12:16 AM) Arm, left (04/15/20 8:49 PM) Temperature Route Axillary (04/16/20 7:00 AM) Oral (04/16/20 12:16 AM) Oral (04/15/20 8:49 PM) Dry Weight 57.86 kg (04/12/20 11:44 PM) Weight Obtained Via Bed scale (04/12/20 11:15 PM) Social History Social History Type Response Smoking Status Former smoker entered on: 08/26/15 Sex
--- OUTSIDE RECORDS SUMMARY | 2022-10-25 19:58 | XMS_ITS | Continuity of Care Document ---
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 Role Phone Destinee JIMENEZ, Roberta Merida Primary Care Physician [phone] Encounter [facility] [place] Date(s): 08/18/21 - 09/17/[address] [address]- Allergies, Adverse Reactions, Alerts Substance Reaction Severity Status penicillin rash Active Immunizations Given and Recorded Vaccine Date Status Refusal Reason SARS-CoV-2 mRNA ([id number]) vax 06/19/21 Given influenza virus vaccine, inactivated 01/15/21 Give n influenza virus vaccine, inactivated 12/11/19 Give n [...] virus vaccine, inactivated 2 05/31/12 Gi davonte SARS-CoV-2 (COVID-19) mRNA BNT-162b2 vac 05/17/20 Given SARS-CoV-2 (COVID-19) mRNA BNT-162b2 vac 3 04/26/20 Given pneumococcal 13-valent vaccine 08/31/16 Given pneumococcal 23-valent vaccine 4 05/31/12 Given tetanus/diphtheria/pertussis, acel(Tdap) 5 05/31/12 Given 1Result Comment: incorrect brand entered 2Admin Note: VIS dated 09/13/11 3Result Comment: Administered by Dalia Olguin NP 4Admin Note: VIS dated 12/17/08 5Admin Note: VIS dated 04/03/11 Medications Artificial Tears preserved solution 1 drops, Eyes, Both, 4 times a day, PRN Dry Eyes, # 10 mL, 11 Refills, Maintenance, 11/06/20 13:04:00 EDT, Ophth Solution, [facility] #[id number], Partial fill upon patient request if the prescription is for a schedule II opioid drug., 1 drops Ey... Start Date: 11/06/20 Status: Ordered Attends dry-sob size 30x36 Attends dry-sob size 30x36, See Instructions, # 90 each, Refills 11, Tot. Refills 11, Maintenance, Use bed bads as needed at night, up to 3 per night, for urinary incontinence R32, 06/04/20 14:06:00 EDT, Supply Start Date: 06/04/20 Status: Ordered Barrier cream Barrier cream, See Instructions, # 1 Unknown, Refills 3, Tot. Refills 3, Maintenance, Apply to areaof darkened skin around coccyx 3-4 times daily to prevent skin breakdown. Dx: stage 1 pressure ulcer L89.91, 11/20/20 14:01:00 EDT, Dispense brand cove... Start Date: 11/20/20 Status: Ordered Barrier cream Barrier cream, See Instructions, # 2 each, Refills 11, Tot. Refills 11, Maintenance, Apply to buttock and low back where pt is at risk of pressure ulcers and exposure to urine. Apply three times a day or as needed. ICD10: L89.92, R54, Z74.01 Dispens... Start Date: 08/28/21 Status: Ordered Depakote 250 mg oral enteric coated tablet See Instructions, 1 tablet By Mouth in the AM and 2 tablet at bedtime, # 90 tablet, 5 Refills, Maintenance, 11/20/20 11:43:00 EDT, [facility] #[id number], Please print in icelandic, 160, cm, 11/04/20 11:39:00 EDT, Height, 57.86, kg, 04/12/20 23:44:... Start Date: 11/20/20 Status: Ordered Diapers See Instructions, # 240 each, Refills 11, Tot. Refills 11, Maintenance, Size Large. Use up to 8 daily for urinary incontinence R32, 05/22/20 17:15:00 EST, Supply Start Date: 05/22/20 Status: Ordered Eucerin Eczema Relief topical cream 1 application, Topically, 2 times a day, # 240 Gm, 5 Refills, Maintenance, 01/15/21 16:05:00 EDT, [facility] #[id number], Partial fill upon patient request if the prescription is for a schedule II opioid drug., 1 application Topically 2 times a d... Start Date: 01/15/21 Status: Ordered guaiFENesin 400 mg oral tablet 1 tablet = 400 mg, By Mouth, Every 4 hours, PRN as needed for congestion and cough, # 30 tablet, 1 Refills, Maintenance, 08/27/21 13:40:00 EDT, Tablet, [facility] #[id number], Partial fill upon patient request if the prescription is for a schedul... Start Date: 08/27/21 Status: Ordered Hospital Bed Mattress Hospital Bed Mattress, See Instructions, # 1 each, Refills 0, Tot. Refills 0, Maintenance, Use on hospital bed to prevent pressure ulcers. Replacement due to worn mattress and skin changes. Z74.01, 01/15/21 16:01:00 EDT, Supply Start Date: 01/15/21 Status: Ordered hydrocolloid dressing hydrocolloid dressing, See Instructions, # 30 each, Refills 0, Tot. Refills 0, Maintenance, 4 x2 or larger Use to cover pressure ulcer on posterior hip/low back. Change 1-2 times daily Keep clean with soap and water ICD10 L89.92, 08/28/21 13:32:0... Start Date: 08/28/21 Status: Ordered lactulose 10 gm/15 ml oral syrup 15 mL = 10 Gm, By Mouth, Daily, PRN as needed for constipation, # 450 mL, 2 Refills, Maintenance, 08/17/21 13:14:00 EDT, Syrup, [facility] #[id number], 15 mL By Mouth Daily,PRN:as needed for constipation, 160, cm, 06/19/21 12:57:00 EDT, Height, 5... Start Date: 08/17/21 Status: Ordered Large Pull Up Diapers Large Pull Up Diapers, See Instructions, # 240 each, Refills 11, Tot. Refills 11, Maintenance, Use up to 8 daily as needed for urinary and stool incontinence R32 R15.9. To replace regular diapers, 09/24/20 12:57:00 EDT, Supply Start Date: 09/24/20 Status: Ordered levETIRAcetam 500 mg oral tablet 1 tablet = 500 mg, By Mouth, 2 times a day, # 60 tablet, 3 Refills, Maintenance, 02/20/21 12:51:00 EST, Tablet, [facility] #[id number], Partial fill upon patient request if the prescription is for a schedule II opioid drug., 160, cm, 01/15/21 14:... Start Date: 02/20/21 Status: Ordered levothyroxine 75 mcg (0.075 mg) oral tablet 1 tablet = 75 mcg, By Mouth, Daily, TK 1 T PO D, # 90 tablet, 1 Refills, Maintenance, 02/19/21 13:28:00 EST, Tablet, [facility] #[id number], Partial fill upon patient request if the prescriptionis for a schedule II opioid drug., 160, cm, ... Start Date: 02/19/21 Status: Ordered lidocaine 4% mucous membrane solution 1 application, Topically, 2 times a day, PRN Pain , Mild, # 1 each, 0 Refills, Maintenance, 05/22/20 16:43:00 EST, [facility] #[id number], Partial fill upon patient request if the prescription is for a schedule II opioid drug., 1 application Topi... Start Date: 05/22/20 Status: Ordered midodrine 5 mg oral tablet 1, tablet, By Mouth, 3 times a day, # 90 tablet, Refills 3, Tot. Refills 0, Maintenance, 10/22/20 13:38:00 EDT, Route to Pharmacy Electronically, [facility] #[id number], 160, cm, 09/26/20 14:49:00 EDT, Height, 57.86, kg, 04/12/20 23:44:00 ESTDr... Start Date: 10/22/20 Status: Ordered Nutritional Supplements See Instructions, # 90 each, Refills 11, Tot. Refills 11, Maintenance, 1.5 kcal/ml, 237 ml q 8 hrs by mouth, 02/26/21 17:12:00 EST, Supply Start Date: 02/26/21 Status: Ordered omeprazole 40 mg oral enteric coated capsule 1 capsule, By Mouth, Daily, # 90 capsule, 0 Refills, 09/02/21 13:12:00 EDT, [facility] #[id number], 160, cm, 08/27/21 13:11:00 EDT, Height, 57.86, kg, 04/12/20 23:44:00 EST, Dry Weight Start Date: 09/02/21 Status: Ordered traZODone 50 mg oral tablet 2, tablet, By Mouth, Daily at bedtime, # 60 tablet, Refills 2, Route to Pharmacy Electronically, [facility] #[id number], 160, cm, 11/04/20 11:39:00 EDT, Height, 57.86, kg, 04/12/20 23:44:00 EST,Dry Weight Start Date: 11/18/20 Status: Ordered Urinal See Instructions, # 3 [...] for urinary and stool incontinence R15.9, R32, 05/15/21 16:36:00 EST, Supply Start Date: 05/15/21 Status: Ordered Problem List Condition Effective Dates Status Health Status Inform ant Anemia(Confirmed) Active BPH (benign prostatic hyperplasia)(Confirmed) Active CKD - chronic kidney disease(Confirmed) Active Constipation(Confirmed) Active COVID-19(Confirmed) Active Severe muscle deconditioning(Confirmed) Active Dementia(Confirmed) Active Developmental delay(Confirmed) Active Muscular deconditioning(Confirmed) Active Dry eyes, bilateral(Confirmed) Active History of pulmonary embolism(Confirmed) Active Hearing loss(Confirmed) Active Adult hypothyroidism(Confirmed) Active Cerumen impaction(Confirmed) Active Chronic pruritus, skin(Confirmed) Active Low back pain(Confirmed) Active Hypotension(Confirmed) Active Myalgia(Confirmed) Active Pre-syncope(Confirmed) Active Orthostatic hypotension(Confirmed) Active *[phone] Care Partn er Tracy Hurst(Confirmed) Active Pain of right sacroiliac joint(Confirmed) Active Seizures(Confirmed) Active Lewy body dementia(Confirmed) Active Tinea cruris(Confirmed) Active Unintentional weight loss(Confirmed) Active Urinary incontinence(Confirmed) Active Vitamin D deficiency(Confirmed) Active Social History Social History Type Response Smoking Status Former smoker entered on: 08/26/15 Sex
--- OUTSIDE RECORDS SUMMARY | 2022-10-25 19:58 | XMS_ITS | Continuity of Care Document ---
Author Name Unknown Organization [facility] Address [address] [place] [address]- Care Team Providers Care Rn Patient Services Name Role Phone Destinee JIMENEZ, Roberta Merida Primary Care Physician [place] [id number] Date(s): 03/22/19 - 04/01/[address] [address]- [facility] Attending Physician: AdmHunter [email or web address] Admitting Physician: AdmtrHiren Referring Physician: Admtr, Ar8 Allergies, Adverse Reactions, Alerts Substance Reaction Severity Status penicillin rash Active Immunizations Given and Recorded Vaccine Date Status Refusal Reason influenza virus vaccine, inactivated 03/22/19 Give n [...] Tears preserved solution 1 drops, Eyes, Both, 3 times a day, PRN as needed for dry eyes, # 1 bottle, 3 Refills, Maintenance,05/17/18 16:52:29 EST, 1 drops Eyes, Both 3 times a day,PRN:as needed for dry eyes Start Date: 05/17/18 Status: Ordered Compression Stockings See Instructions, # 3 pair, Refills 3, Tot. Refills 3, Maintenance, surgical, knee length 20-30 mm Hg Wear daily to improve circulation for orthostatic hypotension I95.1, 08/10/18 13:38:24 EDT, Compound Start Date: 08/10/18 Status: Ordered Ensure Ensure, See Instructions, # 60 each, Refills 5, Tot. Refills 5, Maintenance, dx: malnutrition E46.0, 03/27/19 7:59:00 EST, Compound Start Date: 03/27/19 Status: Ordered flushable wipes flushable wipes, See Instructions, # 5 each, Refills 11, Tot. Refills 11, Maintenance, Flushable wipes; Dx F03.90, R62.5, 03/27/19 8:00:00 EST, Compound Start Date: 03/27/19 Status: Ordered Home Blood Pressure Monitor See Instructions, # 1 Unknown, Maintenance, daily measurements, I95. 1, wrist bp monitor, 03/22/19 15:55:00 EST, Compound Start Date: 03/22/19 Status: Ordered lactulose 10 gm/15 ml oral syrup 15 mL, By Mouth, Daily, PRN NEEDED FOR CONSTIPATION, # 480 mL, 3 Refills, Acute, 03/29/19 17:23:00 EST, [facility] #[id number], 30, TAKE 15ML BY MOUTH ONCE DAILY NEEDED FOR CONSTIPATION., 160, cm, 03/22/19 15:22:00 EST, Height Start Date: 03/29/19 Status: Ordered levothyroxine 75 mcg (0.075 mg) oral tablet 1 tablet = 75 mcg, By Mouth, Daily, increase in dose, # 30 tablet, 11 Refills, Maintenance, 11/08/18 8:24:16 EDT, Tablet Start Date: 11/08/18 Stop Date: 11/03/19 Status: Ordered melatonin 5 mg oral tablet 1 tablet = 5 mg, By Mouth, Daily at bedtime, PRN for insomnia, # 60 tablet, 11 Refills, Maintenance, 01/17/18 16:43:01 EST, Tablet Start Date: 01/17/18 Status: Ordered midodrine 10 mg oral tablet 0.5 tablet = 5 mg, By Mouth, 3 times a day, # 270 tablet, 0 Refills, Maintenance, 03/22/19 15:33:00EST, Tablet Start Date: 03/22/19 Status: Ordered omeprazole 40 mg oral enteric coated capsule 1 capsule = 40 mg, By Mouth, Daily, # 30 capsule, 2 Refills, Maintenance, 02/19/19 11:06:49 EST, ECCapsule, 160, cm, 12/08/18 8:05:01 EDT, Height, 67.7, kg, 03/06/17 2:37:17 EST, Dry Weight Start Date: 02/19/19 Status: Ordered warfarin 2 mg oral tablet 1 tablet = 2 mg, By Mouth, Daily, 0 Refills, Maintenance, 03/18/19 12:05:00 EST, Tablet Start Date: 03/18/19 Status: Ordered Problem List Condition Effective Dates [...] back pain(Confirmed) Active Hypotension(Confirmed) Active Myalgia(Confirmed) Active *[phone]-[facility] Gina Mcfarland(Confirmed) Active Pain of right sacroiliac joint(Confirmed) Active Lewy body dementia(Confirmed) Active Tinea cruris(Confirmed) Active Vitamin D deficiency(Confirmed) Active Social History Social History Type Response Smoking Status Former smoker entered on: 08/26/15 Sex
--- OUTSIDE RECORDS SUMMARY | 2022-10-25 19:58 | XMS_ITS | Continuity of Care Document ---
Author Name Unknown Organization [facility] Address [address] [place] [id number]- Encounter [facility] ACCT R [id number] Date(s): 11/05/20 - 12/05/[address] [address]-
--- OUTSIDE RECORDS SUMMARY | 2022-10-25 19:58 | XMS_ITS | Continuity of Care Document ---
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 Name Role Phone Destinee JIMENEZ, Roberta Merida Primary Care Physician Encounter [facility] Date(s): 04/23/20 - 05/23/[address] [address]- Allergies, Adverse Reactions, Alerts Substance Reaction Severity [...] Given 1Result Comment: Administered by Dalia Olguin NP 2Result Comment: incorrect brand entered 3Admin Note: VIS dated 09/13/11 4Admin Note: VIS dated 12/17/08 5Admin Note: VIS dated 04/03/11 Medications Artificial Tears preserved solution INSTILL 1 GTT IN BOTH EYES TID PRF DRY EYES Start Date: 04/12/20 Status: Ordered Diapers See Instructions, # 240 [...] Daily, TK 1 T PO D, # 30 tablet, 3 Refills, Maintenance, 05/19/20 14:56:00 EST, Tablet, [email or web address] #[id number], Partial fill upon patient request if the prescriptionis for a schedule II opioid drug., 160, cm, ... Start Date: 05/19/20 Stop Date: 09/16/20 Status: Ordered lidocaine 4% mucous membrane solution 1 application, Topically, 2 times a day, PRN Pain , Mild, # 1 each, 0 Refills, Maintenance, 05/22/20 16:43:00 EST, [email or web address] #[id number], Partial fill upon patient request if the prescription is for a schedule II opioid drug., 1 application Topi... Start Date: 05/22/20 Status: Ordered midodrine 10 mg oral tablet TAKE 1/2 TABLET BY MOUTH THREE TIMES DAILY Start Date: 04/12/20 Status: Ordered Nutritional Supplements See Instructions, # [...] capsule, 0 Refills, Maintenance, 04/16/20 14:22:00 EST, [email or web address] #[id number], 160, cm, 04/16/20 8:39:00 EST, Height, 57.86, kg, 04/12/20 23:44:00 EST, Dry Weight Start Date: 04/16/20 Status: Ordered traZODone 50 mg oral tablet TAKE 2 TABLETS BY MOUTH DAILY AT BEDTIME Start Date: 04/12/20 Status: Ordered Urinal See Instructions, # 3 each, Refills 0, Tot. Refills 0, Maintenance, Use as needed for urinating. 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 Z74.01, G31.83, 05/22/20 17:15:00 EST, Supply Start Date: 05/22/20 Status: Ordered warfarin 3 mg oral tablet 1 tablet = 3 mg, By Mouth, Daily, # 30 tablet, 0 Refills, Maintenance, 04/16/20 12:40:00 EST, Tablet, [facility] #[id number], Partial fill upon patient request if the [...] Myalgia(Confirmed) Active Pre-syncope(Confirmed) Active Orthostatic hypotension(Confirmed) Active *[id number] Care Partn er Tracy [place](Confirmed) Active Pain of right sacroiliac joint(Confirmed) Active Lewy body dementia(Confirmed) Active Tinea cruris(Confirmed) Active Unintentional weight loss(Confirmed) Active Urinary incontinence(Confirmed) Active Vitamin D deficiency(Confirmed) Active Social History Social History Type Response Smoking Status Former smoker entered on: 08/26/15 Sex
--- OUTSIDE RECORDS SUMMARY | 2022-10-25 19:58 | XMS_ITS | Continuity of Care Document ---
Author Name Unknown Organization [facility] Address [address] [place] [id number]- Care Team Providers Care Senior Database Engineer Name Role Phone Destinee JIMENZE, Roberta Merida Primary Care Physician [facility]counter [facility] Date(s): 11/13/19 - 12/13/[address] [address]- [facility] Allergies, Adverse Reactions, Alerts Substance Reaction Severity [...] PRN as needed for dry eyes, # 10 mL, 11 Refills, Maintenance, 10/03/19 11:19:00 EDT, [facility] #[id number], 1 drops Eyes, Both 3 times a day,PRN:as needed for dry eyes, 160, cm, 03/22/19 15:22:00 EST, Height Start Date: 10/03/19 Status: Ordered Compression Stockings See Instructions, # 3 pair, Refills 3, Tot. Refills 3, Maintenance, surgical, knee length 20-30 mm Hg Wear daily to improve circulation for orthostatic hypotension I95.1, 08/10/18 13:38:24 EDT, Compound Start Date: 08/10/18 Status: Ordered disposable bed pads disposable bed pads, See Instructions, # 100 each, Refills 3, Tot. Refills 3, Maintenance, use 1-2 each night for urinary incontinence secondary to lewy body dementia R32, G31.83, 11/08/19 16:45:00 EDT, Supply Start Date: 11/08/19 Status: Ordered Ensure Ensure, See Instructions, # 90 each, Refills 11, Tot. Refills 11, Maintenance, dx: malnutrition E46.0 Drink 3 times a day, 12/11/19 13:50:00 EDT, Compound Start Date: 12/11/19 Status: Ordered flushable wipes flushable wipes, See [...] FOR CONSTIPATION, # 480 mL, 3 Refills, Maintenance, 10/04/19 11:21:00 EDT, [facility] #[id number], 30, 15 mL By Mouth Daily,PRN: NEEDED FOR CONSTIPATION, 160, cm, 03/22/19 15:22:00 EST, Height Start Date: 10/04/19 Status: Ordered levothyroxine 75 mcg (0.075 mg) oral tablet 1 tablet = 75 mcg, By Mouth, Daily, increase in dose, # 90 tablet, 1 Refills, Maintenance, 11/07/2009:50:00 EDT, Tablet, [facility] #[id number], 160, cm, 03/22/19 15:22:00 EST, Height Start Date: 11/08/19 Stop Date: 11/02/20 Status: Ordered melatonin 5 mg oral tablet [...] capsule, By Mouth, Daily, # 90 capsule, 1 Refills, Maintenance, 11/23/19 15:26:00 EDT, [facility] #[id number], 160, cm, 03/22/19 15:22:00 EST, Height Start Date: 11/23/19 Status: Ordered warfarin 2.5 mg oral tablet 1 tablet, By Mouth, Daily, DIRECTED BY NURSE BASED ON INR RESULTS., # 30 tablet, 11 Refills, Maintenance, 09/18/19 16:11:00 EDT, [facility] #[id number], 160, cm, 03/22/19 15:22:00 EST, Height Start Date: 09/18/19 Status: Ordered Problem List Condition Effective Dates [...] back pain(Confirmed) Active Hypotension(Confirmed) Active Myalgia(Confirmed) Active *[id number]-[facility] Part[facility] jeramie Mcfarland(Confirmed) Active Pain of right sacroiliac joint(Confirmed) Active Lewy body dementia(Confirmed) Active Tinea cruris(Confirmed) Active Urinary incontinence(Confirmed) Active Vitamin D deficiency(Confirmed) Active Social History Social History Type Response Smoking Status Former smoker entered on: 08/26/15 Sex
--- OUTSIDE RECORDS SUMMARY | 2022-10-25 19:58 | XMS_ITS | Continuity of Care Document ---
Author Name Unknown Organization [facility] Address [address] [place] [address]- Care Team Providers Care Artificial Intelligence Specialist Name Role Phone Destinee JIMENEZ, Roberta Merida Primary Care Physician Encounter [facility] Date(s): 07/06/22 - 08/05/[address] [address]- Allergies, Adverse Reactions, Alerts Substance Reaction Severity Status penicillin rash Active Immunizations Given and Recorded Vaccine Date Status Refusal Reason [id number] 12y+ bivalent booster vax 03/05/22 Given influenza virus vaccine, inactivated 03/05/22 Give n influenza virus vaccine, inactivated 01/15/21 Give n [...] vaccine, inactivated 2 05/31/12 [facility] SARS-CoV-2 mRNA (qoujboo-ietn-pddnk) vax 06/19/21 Given SARS-CoV-2 (COVID-19) mRNA BNT-162b2 vac 05/17/20 Given SARS-CoV-2 (COVID-19) mRNA BNT-162b2 vac 3 04/26/20 Given pneumococcal 13-valent vaccine 08/31/16 Given pneumococcal 23-valent vaccine 4 05/31/12 Given tetanus/diphtheria/pertussis, acel(Tdap) 5 05/31/12 Given 1Result Comment: incorrect brand entered 2Admin Note: VIS dated 09/13/11 3Result Comment: Administered by Dalia Olguin SEWER PIPE OFFBEARER 4Admin Note: VIS dated 12/17/08 5Admin Note: VIS dated 04/03/11 Medications Artificial Tears preserved solution 1 drops, Eyes, Both, 4 times a day, PRN Dry Eyes, # 10 mL, 11 Refills, Maintenance, 01/26/22 14:13:00 EST, Ophth Solution, [facility] #[id number], Partial fill upon patient request if the prescription is for a schedule II opioid drug., 1 drops Ey... Start Date: 01/26/22 Status: Ordered Attends dry-sob size 30x36 Attends [...] ICD10: L89.92, R54, Z74.01 Dispens... Start Date: 06/01/22 Status: Ordered Depakote 250 mg oral enteric coated tablet See Instructions, 1 tablet By Mouth in the AM and 2 tablet at bedtime, # 90 tablet, 5 Refills, Maintenance, 10/26/21 14:08:00 EDT, [facility] #[id number], Please print in belarusian, 160, cm, 08/27/21 13:11:00 EDT, Height, 57.86, kg, 01/30/21 23:44:... Start Date: 10/26/21 Status: Ordered Diapers See Instructions, # 240 each, Refills 11, Tot. Refills 11, Maintenance, Size Large. Use up to 8 daily for urinary incontinence R32, 05/22/20 17:15:00 EST, Supply Start Date: 05/22/20 Status: Ordered diphenhydrAMINE 2% topical cream 1 application, Topically, 3 times a day, PRN for itching, # 60 Gm, 1 Refills, Maintenance, 06/18/2314:05:00 EDT, Cream, [facility] #[id number], Partial fill upon patient request if the prescription is for a schedule II opioid drug., 1 applicatio... Start Date: 06/18/22 Status: Ordered docusate sodium 100 mg oral capsule 100 mg, 1, capsule, By Mouth, 2 times a day, PRN, # 60 capsule, Refills 3, Tot. Refills 3, Maintenance, for constipation, 01/26/22 14:13:00 EST, Route to Pharmacy Electronically, [facility]#[id number], Partial fill upon patient request if the pr... Start Date: 01/26/22 Status: Ordered Eucerin Eczema Relief topical cream 1 application, Topically, 2 times a day, # 240 Gm, 5 Refills, Maintenance, 01/15/21 16:05:00 EDT, [facility] #[id number], Partial fill upon patient request if the prescription is for a schedule II opioid drug., 1 application Topically 2 times a d... Start Date: 01/15/21 Status: Ordered guaiFENesin 400 mg oral tablet 1 tablet = 400 mg, By Mouth, Every 4 hours, PRN as needed for congestion and cough, # 30 tablet, 1 Refills, Maintenance, 08/27/21 13:40:00 EDT, Tablet, [facility] #[id number], Partial fill upon patient request if the [...] 2 Refills, Maintenance, 08/17/21 13:14:00 EDT, Syrup, [facility] #[id number], 15 mL By Mouth Daily,PRN:as needed for [...] 2 times a day, # 60 tablet, 5 Refills, Maintenance, 10/26/21 14:08:00 EDT, [facility] #[id number], Partial fill upon patient request if the prescription is for a schedule II opioid drug., 160, cm, 08/27/21 13:... Start Date: 10/26/21 Status: Ordered levothyroxine 75 mcg (0.075 mg) oral tablet 1 tablet = 75 mcg, By Mouth, Daily, TK 1 T PO D, # 90 tablet, 1 Refills, Maintenance, 04/21/22 9:43:00 EST, [facility][id number], Partial fill upon patient request if the prescription is for a schedule II opioid drug., 160, cm, ... Start Date: 04/21/22 Status: Ordered lidocaine 4% mucous membrane solution 1 application, Topically, 2 times a day, PRN Pain , Mild, # 1 each, 0 Refills, Maintenance, 05/22/20 16:43:00 EST, [facility] #[id number], Partial fill upon patient request if the prescription is for a schedule II opioid drug., 1 application Topi... Start Date: 05/22/20 Status: Ordered midodrine 5 mg oral tablet 1, tablet, By Mouth, 3 times a day, # 90 tablet, Refills 3, Tot. Refills 3, Maintenance, 10/27/21 15:24:00 EDT, Route to Pharmacy Electronically, [facility] #[id number], 160, cm, 08/27/21 13:11:00 EDT, Height, 57.86, kg, 04/12/20 23:44:00 EST, [facility] Start Date: 10/27/21 Status: Ordered Nutritional Supplements See Instructions, # 90 each, Refills 11, Tot. 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 ozssmoizR54.4, G31.83, 07/09/22 17:02:00 EDT, Supply Start Date: 07/09/22 Status: Ordered omeprazole 40 mg oral enteric coated capsule 1 capsule, By Mouth, Daily, # 90 capsule, 1 Refills, 11/23/21 16:42:00 EDT, [facility] #[id number], 160, cm, 08/27/21 13:11:00 EDT, Height, 57.86, kg, 04/12/20 23:44:00 EST, Dry Weight Start Date: 11/23/21 Status: Ordered oral care swabs oral care swabs, See Instructions, # 200 each, Refills 11, Tot. Refills 11, Maintenance, Use up to 8 per day to moisten the mouth due to dry mouth and dementia R68.2, G31.83, 06/01/22 12:10:00 EDT, Supply Start Date: 06/01/22 Status: Ordered traZODone 50 mg oral tablet 2, tablet, By Mouth, Daily at bedtime, # 60 tablet, Refills 2, Tot. Refills 2, 05/03/22 11:14:00 EST, Route to Pharmacy Electronically, [facility] #[id number], 160, cm, 04/19/22 17:27:00 EST, Height Start Date: 05/03/22 Status: Ordered Urinal See Instructions, # 3 each, Refills 0, Tot. Refills 0, Maintenance, Use as needed for urinating. 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 Z74.01, G31.83, 05/22/20 17:15:00 EST, Supply Start Date: 05/22/20 Status: Ordered Washable Proteomics Scientist Bed Pads Washable Prote[employer] Scientist Bed Pads, See Instructions, # 4 each, Refills 1, Tot. Refills 1, Maintenance, Use as needed for total incontinence, bedbound N39.498, Z74.01, 06/01/22 12:08:00 EDT, Supply Start Date: 06/01/22 Status: Ordered wipes wipes, See Instructions, # 5 pack/packet, Refills 11, Tot. Refills 11, Maintenance, Use to clean patient for urinary and stool incontinence R15.9, R32, 05/19/22 8:40:00 EST, Supply Start Date: 05/19/22 Status: Ordered Problem List Condition Confirmation Course Effective Dates Status H ealth Status Informant Anemia Confirmed Active BPH (benign prostatic hyperplasia) Confirmed Active CKD - chronic kidney disease Confirmed Active Constipation Confirmed Active COVID-19 Confirmed Active Severe muscle deconditioning Confirmed Active Dementia Confirmed Active Developmental delay Confirmed Active Muscular deconditioning Confirmed Active Dry eyes, bilateral Confirmed Active History of pulmonary embolism Confirmed Active Hearing loss Confirmed Active Adult hypothyroidism Confirmed Active Cerumen impaction Confirmed Active Chronic pruritus, skin Confirmed Active Low back pain Confirmed Active Hypotension Confirmed Active Myalgia Confirmed Active Pre-syncope Confirmed Active Orthostatic hypotension Confirmed Active *[phone] Fund Accountant Yi Campos Confirmed Active Pain of right sacroiliac joint Confirmed Active Seizures Confirmed Active Lewy body dementia Confirmed Active Tinea cruris Confirmed Active Unintentional weight loss Confirmed Active Urinary incontinence Confirmed Active Vitamin D deficiency Confirmed Active Social History Social History Type Response Smoking Status Former smoker entered on: 08/26/15 Sex Patient Care team information Care Team Personnel Name: Matilde Mahmood RN Position: [facility] RN Member Role: Primary Care Nurse Name: Roberta Felipe NP Position: [facility] PCO Associate Professional Member Role: PCP Address: Address: [address] [place] [address]- Name: Maci Kruse RN Position: [facility] SN RN Member Role: Primary Care Nurse Name: Lyudmila Ortez RN Position: [facility] RN Member Role: Primary Care Nurse Name: Lilo Maldonado RN Position: [facility] RN Member Role: Primary Care Nurse Name: Anuj Murillo RN Position: [facility] RN Member Role: Primary Care Nurse Name: Jasmin Oliva Position: [facility] Outreach Member Role: Lifetime Consulting Physician Name: Suzanne Celeste RN Position: [facility] RN Member Role: Primary Care Nurse Name: Lily Solis RN Position: [facility] Onco RN Member Role: Primary Care Nurse Name: Adela Tadeo RN Position: [facility] RN Member Role: Primary Care Nurse Name: Nancy Morrow RN Position: [facility] RN Member Role: Primary Care Nurse Name: Etta Dewitt RN Position: [facility] RN Member Role: Primary Care Nurse Care Team Related Persons Name: ORQUIDEAJESSIKA CORTEZ Address: [address] [address] Name: JESSICA JOSUE Address: [address] [place] [address] Name: CARLOS CEJA Address: [address] [address]
--- OUTSIDE RECORDS SUMMARY | 2022-10-25 19:58 | XMS_ITS | Continuity of Care Document ---
Author Name Unknown Organization [facility] Address [address] [facility], [address] Floor, [address] [place] [address]- Care Team Providers Care Cardiothoracic Surgeon Name Role Phone Destinee JIMENEZ, Roberta Merida Primary Care Physician Encounter [facility] Date(s): 04/27/22 - 08/25/22 [facility] [address], [address], [address] [place] [address]- Attending Physician: Fletcher CENTENO, Seth Merida Admitting Physician: Seth Bynum MD Referring Physician: Roberta Felipe NP Allergies, Adverse Reactions, Alerts Substance Reaction Severity Status penicillin rash Active Immunizations Given and Recorded Vaccine Date Status Refusal Reason [id number] 12y+ bivalent booster vax 03/05/22 Given influenza [...] inactivated 2 05/31/12 [facility] SARS-CoV-2 mRNA (vctxane-syxw-hgeba) vax 06/19/21 Given SARS-CoV-2 (COVID-19) mRNA BNT-162b2 [...] Refills, Maintenance, 01/26/22 14:13:00 EST, Ophth Solution, [facility] #[id number], Partial fill upon patient request if the [...] tablet, 5 Refills, Maintenance, 10/26/21 14:08:00 EDT, [facility] #[id number], Please print in east timore[place], 160, cm, 08/27/21 13:11:00 EDT, Height, 57.86, kg, 04/12/20 23:44:... Start Date: 10/26/21 Status: Ordered Diapers See Instructions, # 240 each, Refills 11, Tot. Refills 11, Maintenance, Size Large. Use up to 8 daily for urinary incontinence R32, 05/22/20 17:15:00 EST, Supply Start Date: 05/22/20 Status: Ordered diphenhydrAMINE 2% topical cream 1 application, Topically, 3 times a day, PRN for itching, # 60 Gm, 1 Refills, Maintenance, 06/18/2314:05:00 EDT, Cream, [facility] #[id number], Partial fill upon patient request if the prescription is for a schedule II opioid drug., 1 applicatio... Start Date: 06/18/22 Status: Ordered docusate sodium 100 mg oral capsule 100 mg, 1, capsule, By Mouth, 2 times a day, PRN, # 60 capsule, Refills 3, Tot. Refills 3, Maintenance, for constipation, 01/26/22 14:13:00 EST, Route to Pharmacy Electronically, [facility]#[id number], Partial fill upon patient request if the pr... Start Date: 01/26/22 Status: Ordered Eucerin Eczema Relief topical cream 1 application, Topically, 2 times a day, # 240 Gm, 5 Refills, Maintenance, 01/15/21 16:05:00 EDT, [facility] #[id number], Partial fill upon patient request if the prescription is for a schedule II opioid drug., 1 application Topically 2 times a d... Start Date: 01/15/21 Status: Ordered guaiFENesin 400 mg oral tablet 1 tablet = 400 mg, By Mouth, Every 4 hours, PRN as needed for congestion and cough, # 30 tablet, 1 Refills, Maintenance, 08/27/21 13:40:00 EDT, Tablet, [facility] #[id number], Partial fill upon patient request if the [...] 2 Refills, Maintenance, 08/17/21 13:14:00 EDT, Syrup, [facility] #[id number], 15 mL By Mouth Daily,PRN:as needed for [...] tablet, 5 Refills, Maintenance, 10/26/21 14:08:00 EDT, [facility]08595, Partial fill upon patient request if the prescription is for a schedule II opioid drug., 160, cm, 08/27/21 13:... Start Date: 10/26/21 Status: Ordered levothyroxine 75 mcg (0.075 mg) oral tablet 1 tablet = 75 mcg, By Mouth, Daily, TK 1 T PO D, # 90 tablet, 1 Refills, Maintenance, 04/21/22 9:43:00 EST, Tablet, [facility] #[id number], Partial fill upon patient request if the prescription is for a schedule II opioid drug., 160, cm, ... Start Date: 04/21/22 Status: Ordered lidocaine 4% mucous membrane solution 1 application, Topically, 2 times a day, PRN Pain , Mild, # 1 each, 0 Refills, Maintenance, 05/22/20 16:43:00 EST, [facility] #07511, Partial fill upon patient request if the prescription is for a schedule II opioid drug., 1 application Topi... Start Date: 05/22/20 Status: Ordered midodrine 5 mg oral tablet 1, tablet, By Mouth, 3 times a day, # 90 tablet, Refills 3, Tot. Refills 3, Maintenance, 10/27/21 15:24:00 EDT, Route to Pharmacy Electronically, [facility] #[id number], 160, cm, 08/27/21 13:11:00 EDT, Height, 57.86, kg, 04/12/20 23:44:00 EST, Dr... Start Date: 10/27/21 Status: Ordered Nutritional Supplements See Instructions, # 90 each, Refills 11, Tot. 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 oxtlpfscG48.4, G31.83, 07/09/22 17:02:00 EDT, Supply Start Date: 07/09/22 Status: Ordered omeprazole 40 mg oral enteric coated capsule 1 capsule, By Mouth, Daily, # 90 capsule, 1 Refills, 11/23/21 16:42:00 EDT, [facility] #[id number], 160, cm, 08/27/21 13:11:00 EDT, Height, 57.86, [...] 05/03/22 11:14:00 EST, Route to Pharmacy Electronically, [facility] #[id number], 160, cm, 04/19/22 17:27:00 EST, Height Start Date: 05/03/22 Status: Ordered Urinal See Instructions, # 3 each, Refills 0, Tot. Refills 0, Maintenance, Use as needed for urinating. 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 Z74.01, G31.83, 05/22/20 17:15:00 EST, Supply Start Date: 05/22/20 Status: Ordered Washable Maintenance Mechanic 2Nd Shift Bed Pads Washable Maintenance Mechanic 2Nd Shift Bed Pads, See Instructions, # 4 each, [...] Pre-syncope Confirmed Active Orthostatic hypotension Confirmed Active *[id number] Car Supervisor Yi Campos Confirmed Active Pain of right sacroiliac joint Confirmed Active Seizures Confirmed Active Lewy body dementia Confirmed Active Tinea cruris Confirmed Active Unintentional weight loss Confirmed Active Urinary incontinence Confirmed Active Vitamin D deficiency Confirmed Active Social History Social History Type Response Smoking Status Former smoker entered on: 08/26/15 Sex Patient Care team information Care Team Personnel Name: Matilde Mahmood RN Position: [facility] RN Member Role: Primary Care Nurse Name: Roberta Felipe NP Position: [facility] PCO Associate Professional Member Role: PCP Address: Address: [address] [place] [address] Name: Maci Kruse RN Position: [facility] SN RN Member Role: Primary Care Nurse Name: Lyudmila Ortez RN Position: [facility] RN Member Role: Primary Care Nurse Name: Lilo Maldonado RN Position: [facility] RN Member Role: Primary Care Nurse Name: Anuj Murillo RN Position: [facility] RN Member Role: Primary Care Nurse Name: Jasmin Oliva Position: [facility] Outreach Member Role: Lifetime Consulting Physician Name: Suzanne Celeste RN Position: [facility] RN Member Role: Primary Care Nurse Name: Lily Solis RN Position: [facility] Onco RN Member Role: Primary Care Nurse Name: Adela Tadeo RN Position: [facility] RN Member Role: Primary Care Nurse Name: Nancy Morrow RN Position: [facility] RN Member Role: Primary Care Nurse Name: Etta Dewitt RN Position: [facility] RN Member Role: Primary Care Nurse Care Team Related Persons Name: JESSIKA HEARD Address: [address] [address] Name: JESSICA JOSUE Address: [address] [place] [address] Name: CARLOS CEJA Address: [address] [address]
--- OUTSIDE RECORDS SUMMARY | 2022-10-25 19:58 | XMS_ITS | Continuity of Care Document ---
Author Name Unknown Organization [facility] Address [address] [place] [address]- Care Team Providers Care Insurance Policy Issue Clerk Name Role Phone Roberta Felipe NP Primary Care Physician Encounter [facility] Date(s): 07/31/20 - 09/07/[address] [address]- Attending Physician: Not on Staff, Attending MD Referring Physician: Roberta Felipe NP Allergies, [...] 11 Refills, Maintenance, 06/24/20 14:40:00 EDT, Tablet, [facility] #[id number], Partial fill upon patient request if the [...] 2 Refills, Maintenance, 08/08/20 16:52:00 EDT, Tablet, [facility] #[id number], Partial fill upon patient request if the [...] 09/16/20 14:56:00 EDT, 05/19/20 14:56:00 EST, Tablet, [facility] #[id number], Partial fill upon patient request if the prescription is for a schedule... Start Date: 05/19/20 Stop Date: 09/16/20 Status: Ordered levothyroxine 75 mcg (0.075 mg) oral tablet 1 tablet = 75 mcg, By Mouth, Daily, TK 1 T PO D, # 90 tablet, 1 Refills, Maintenance, 09/16/20 14:56:00 EDT, Tablet, [facility] #[id number], Partial fill upon patient request if the prescriptionis for a schedule II opioid drug., 160, cm, ... Start Date: 09/16/20 Stop Date: 01/14/21 Status: Ordered lidocaine 4% mucous membrane solution 1 application, Topically, 2 times a day, PRN Pain , Mild, # 1 each, 0 Refills, Maintenance, 05/22/20 16:43:00 EST, [facility] #[id number], Partial fill upon patient request if the prescription is for a schedule II opioid drug., 1 application Topi... Start Date: 05/22/20 Status: Ordered midodrine 5 mg oral tablet 5 mg, 1, tablet, By Mouth, 3 times a day, lower dose tablet, # 90 tablet, Refills 3, Tot. Refills 3, Maintenance, 06/23/20 14:16:00 EDT, Route to Pharmacy Electronically, [facility] #[id number],Partial fill upon patient request if the prescripti... [...] capsule, 0 Refills, Maintenance, 06/23/20 8:58:00 EDT, [facility] #[id number], 160, cm, 05/21/20 9:12:00 EST, Height, 57.86, kg, 04/12/20 23:44:00 EST, Dry Weight Start Date: 06/23/20 Status: Ordered traZODone 50 mg oral tablet 2, tablet, By Mouth, Daily at bedtime, # 60 tablet, Refills 3, Tot. Refills 0, Maintenance, 07/15/20 10:03:00 EDT, Route to Pharmacy Electronically, [facility] #[id number], 160, cm, 05/21/20 9:12:00 EST, Height, 57.86, [...] Myalgia(Confirmed) Active Pre-syncope(Confirmed) Active Orthostatic hypotension(Confirmed) Active *[id number] Care Partn er Tracyyusuf Hurst(Confirmed) Active Pain of right sacroiliac joint(Confirmed) Active Lewy body dementia(Confirmed) Active Tinea cruris(Confirmed) Active Unintentional weight loss(Confirmed) Active Urinary incontinence(Confirmed) Active Vitamin D deficiency(Confirmed) Active Social History Social History Type Response Smoking Status Former smoker entered on: 08/26/15 Sex
--- OUTSIDE RECORDS SUMMARY | 2022-10-25 19:58 | XMS_ITS | Continuity of Care Document ---
Author Name Unknown Organization [facility] Address [address] [place] [address]- Care Team Providers Care Merchant Seaman Name Role Phone Destinee JIMENEZ, Roberta Merida Primary Care Physician Encounter [facility] Date(s): 11/06/20 - 12/06/[address] [address]- Allergies, Adverse Reactions, Alerts Substance Reaction Severity [...] Refills, Maintenance, 11/06/20 13:04:00 EDT, Ophth Solution, [facility] #[id number], Partial fill upon patient request if the [...] brand cove... Start Date: 11/20/20 Status: Ordered Depakote 250 mg oral enteric coated tablet See Instructions, 1 tablet By Mouth in the AM and 2 tablet at bedtime, # 90 tablet, 5 Refills, Maintenance, 11/20/20 11:43:00 EDT, [facility] #[id number], Please print in latvian, 160, cm, 11/04/20 11:39:00 EDT, Height, 57.86, [...] constipation, # 450 mL, 2 Refills, Maintenance, 11/06/20 13:03:00 EDT, Syrup, [facility] #[id number], Partial fill upon patient request if the prescription is for a schedule II opioid drug., 15 mL... Start Date: 11/06/20 Status: Ordered Large Pull Up Diapers Large [...] 2 times a day, # 60 tablet, 6 Refills, Maintenance, 11/20/20 11:42:00 EDT, Tablet, [facility] #[id number], Partial fill upon patient request if the prescription is for a schedule II opioid drug., 160, cm, 11/04/20 11:... Start Date: 11/20/20 Stop Date: 06/18/21 Status: Ordered levothyroxine 75 mcg (0.075 mg) oral tablet 1 tablet = 75 mcg, By Mouth, Daily, TK 1 T PO D, # 90 tablet, 1 Refills, Maintenance, 09/16/20 14:56:00 EDT, Tablet, [facility] #[id number], Partial fill upon patient request if the prescriptionis for a schedule II opioid drug., 160, cm, ... Start Date: 09/16/20 Stop Date: 01/14/21 Status: Ordered lidocaine 4% mucous membrane solution 1 application, Topically, 2 times a day, PRN Pain , Mild, # 1 each, 0 Refills, Maintenance, 05/22/20 16:43:00 EST, [facility] #[id number], Partial fill upon patient request if the prescription is for a schedule II opioid drug., 1 application Topi... Start Date: 05/22/20 Status: Ordered midodrine 5 mg oral tablet 1, tablet, By Mouth, 3 times a day, # 90 tablet, Refills 3, Tot. Refills 0, Maintenance, 10/22/20 13:38:00 EDT, Route to Pharmacy Electronically, [facility] #[id number], 160, cm, 09/26/20 14:49:00 EDT, Height, 57.86, kg, 04/12/20 23:44:00 ESTDr... Start Date: 10/22/20 Status: Ordered Nutritional Supplements See Instructions, # 90 each, Refills 11, Tot. Refills 11, Maintenance, 1.5 kcal/ml, 237 ml q 8 hrs by mouth, 09/09/20 16:57:00 EDT, Supply Start Date: 09/09/20 Status: Ordered omeprazole 40 mg oral enteric coated capsule 1 capsule, By Mouth, Daily, # 90 capsule, 0 Refills, [facility] #[id number], 160, cm, 11/04/2110:39:00 EDT, Height, 57.86, kg, 04/12/20 23:44:00 EST, Dry Weight Start Date: 11/27/20 Status: Ordered traZODone 50 mg oral tablet 2, tablet, By Mouth, Daily at bedtime, # 60 tablet, Refills 2, Route to Pharmacy Electronically, [facility] #[id number], 160, cm, 11/04/20 11:39:00 EDT, Height, 57.86, [...] for urinary and stool incontinence R15.9, R32, 09/09/20 16:57:00 EDT, Supply Start Date: 09/09/20 Status: Ordered Problem List Condition Effective Dates [...] Myalgia(Confirmed) Active Pre-syncope(Confirmed) Active Orthostatic hypotension(Confirmed) Active *[id number] Care Partn er Tracy Hurst(Confirmed) Active Pain of right sacroiliac joint(Confirmed) Active Lewy body dementia(Confirmed) Active Tinea cruris(Confirmed) Active Unintentional weight loss(Confirmed) Active Urinary incontinence(Confirmed) Active Vitamin D deficiency(Confirmed) Active Social History Social History Type Response Smoking Status Former smoker entered on: 08/26/15 Sex
--- OUTSIDE RECORDS SUMMARY | 2022-10-25 19:58 | XMS_ITS | Continuity of Care Document ---
Author Name Unknown Organization [facility] Address [address] [place] [address]- Care Team Providers Care Account Auditor Name Role Phone Destinee JIMENEZ, Roberta Merida Primary Care Physician [phone] [place] [facility] [place]/25/[place] - 10/25/[address] [address]- [facility] Allergies, Adverse Reactions, Alerts Substance Reaction [...] mL, 11 Refills, Maintenance, 10/03/19 11:19:00 EDT, [facility] #[id number], 1 drops Eyes, Both 3 times a [...] mL, 3 Refills, Maintenance, 10/04/19 11:21:00 EDT, [facility] #[id number], 30, 15 mL By Mouth Daily,PRN: NEEDED [...] Daily, # 90 capsule, 0 Refills, Maintenance, 08/27/19 8:49:00 EDT, [facility] #[id number], 160, cm, 03/22/19 15:22:00 EST, Height Start Date: 08/27/19 Status: Ordered warfarin 2.5 mg oral tablet 1 tablet, By Mouth, Daily, DIRECTED BY NURSE BASED ON INR RESULTS., # 30 tablet, 11 Refills, Maintenance, 09/18/19 16:11:00 EDT, [facility] #[id number], 160, cm, 03/22/19 15:22:00 EST, Height Start [...] back pain(Confirmed) Active Hypotension(Confirmed) Active Myalgia(Confirmed) Active *[phone][facility] Vimal Mcfarland(Confirmed) Active Pain of right sacroiliac joint(Confirmed) Active Lewy body dementia(Confirmed) Active Tinea cruris(Confirmed) Active Vitamin D deficiency(Confirmed) Active Social History Social History Type Response Smoking Status Former smoker entered on: 08/26/15 Sex
--- OUTSIDE RECORDS SUMMARY | 2022-10-25 19:58 | XMS_ITS | Continuity of Care Document ---
Author Name Unknown Organization [facility] Address [address] [place] [address]- Care Team Providers Care Portfolio Assistant Name Role Phone Destinee JIMENEZ, Roberta Merida Primary Care Physician [phone] Encounter [facility] Date(s): 03/25/20 - 04/24/[address] [address]- Allergies, Adverse Reactions, Alerts Substance Reaction Severity [...] capsule, 0 Refills, Maintenance, 04/16/20 14:22:00 EST, [facility] #[id number], 160, cm, 04/16/20 8:39:00 EST, Height, 57.86, kg, 04/12/20 23:44:00 EST, Dry Weight Start Date: 04/16/20 Status: Ordered traZODone 50 mg oral tablet TAKE 2 TABLETS BY MOUTH DAILY AT BEDTIME Start Date: 04/12/20 Status: Ordered warfarin 3 mg oral tablet 1 tablet = 3 mg, By Mouth, Daily, # 30 tablet, 0 Refills, Maintenance, 04/16/20 12:40:00 EST, Tablet, [facility] #[id number], Partial fill upon patient request if the [...] Myalgia(Confirmed) Active Pre-syncope(Confirmed) Active Orthostatic hypotension(Confirmed) Active *[id number] Care Partn er Tracy Lagosan(Confirmed) Active Pain of right sacroiliac joint(Confirmed) Active Lewy body dementia(Confirmed) Active Tinea cruris(Confirmed) Active Unintentional weight loss(Confirmed) Active Urinary incontinence(Confirmed) Active Vitamin D deficiency(Confirmed) Active Social History Social History Type Response Smoking Status Former smoker entered on: 08/26/15 Sex
--- OUTSIDE RECORDS SUMMARY | 2022-10-25 19:58 | XMS_ITS | Continuity of Care Document ---
Author Name Unknown Organization [facility] Address [address] [place] [address]- Care Team Providers Care Lime Kiln Worker Name Role Phone Destinee JIMENEZ, Roberta Merida Primary Care Physician Encounter [facility] Date(s): 10/03/20 - 11/02/[address] [address]- Allergies, Adverse Reactions, Alerts Substance Reaction Severity [...] VIS dated 12/17/08 5Admin Note: VIS dated 1/21/12 Medications apixaban 2.5 mg oral tablet 1 tablet = 2.5 mg, By Mouth, 2 times a day, Transitioning from warfarin to apixaban, # 60 tablet, 11 Refills, Maintenance, 06/24/20 14:40:00 EDT, Tablet, [facility] #[id number], Partial fill upon patient request if the [...] EDT, Supply Start Date: 06/04/20 Status: Ordered Depakote 250 mg oral enteric coated tablet 1 tablet = 250 mg, By Mouth, 2 times a day, In addtion to Levetiracetam 750mg bid, # 60 tablet, 5 Refills, Maintenance, 10/28/20 15:23:00 EDT, [facility] #[id number], has Cr of 1.3, so should goup on Keppra dose. adding Depakote for this reason... Start Date: 10/28/20 Stop Date: 04/26/21 Status: Ordered Diapers See Instructions, # 240 [...] opioid drug. Start Date: 04/12/20 Status: Ordered Large Pull Up Diapers Large Pull Up Diapers, See Instructions, # 240 each, Refills 11, Tot. Refills 11, Maintenance, Use up to 8 daily as needed for urinary and stool incontinence R32 R15.9. To replace regular diapers, 09/24/20 12:57:00 EDT, Supply Start Date: 09/24/20 Status: Ordered levETIRAcetam 750 mg oral tablet 1 tablet = 750 mg, By Mouth, 2 times a day, increase in strength, # 60 tablet, 2 Refills, Maintenance, 09/29/20 16:10:00 EDT, Tablet, [facility] #[id number], Partial fill upon patient request ifthe prescription is for a schedule II opioid drug.,... Start Date: 09/29/20 Status: Ordered levothyroxine 75 mcg (0.075 mg) oral tablet 1 tablet = 75 mcg, By Mouth, Daily, TK 1 T PO D, # 90 tablet, 1 Refills, Maintenance, 09/16/20 14:56:00 EDT, Tablet, [facility] #[id number], Partial fill upon patient request if the prescriptionis for a schedule II opioid drug., 160, cm, ... Start Date: 09/16/20 Stop Date: 01/14/21 Status: Ordered lidocaine 4% mucous membrane solution 1 application, Topically, 2 times a day, PRN Pain , Mild, # 1 each, 0 Refills, Maintenance, 05/22/20 16:43:00 EST, [facility] #[id number], Partial fill upon patient request if the prescription is for a schedule II opioid drug., 1 application Topi... Start Date: 05/22/20 Status: Ordered midodrine 5 mg oral tablet 1, tablet, By Mouth, 3 times a day, # 90 tablet, Refills 3, Tot. Refills 0, Maintenance, 10/22/20 13:38:00 EDT, Route to Pharmacy Electronically, [facility] #[id number], 160, cm, 09/26/20 14:49:00 EDT, Height, 57.86, [...] Daily, # 90 capsule, 0 Refills, Maintenance, 09/10/20 8:11:00 EDT, [facility] #[id number], 160, cm, 08/21/20 12:36:00 EDT, Height, 57.86, kg, 04/12/20 23:44:00 EST, Dry Weight Start Date: 09/10/20 Status: Ordered traZODone 50 mg oral tablet 2, tablet, By Mouth, Daily at bedtime, # 60 tablet, Refills 3, Tot. Refills 0, Maintenance, 07/15/20 10:03:00 EDT, Route to Pharmacy Electronically, [facility] #[id number], 160, cm, 05/21/20 9:12:00 EST, Height, 57.86, [...] Myalgia(Confirmed) Active Pre-syncope(Confirmed) Active Orthostatic hypotension(Confirmed) Active *[id number] Care Partn er Tracy Hurst(Confirmed) Active Pain of right sacroiliac joint(Confirmed) Active Lewy body dementia(Confirmed) Active Tinea cruris(Confirmed) Active Unintentional weight loss(Confirmed) Active Urinary incontinence(Confirmed) Active Vitamin D deficiency(Confirmed) Active Social History Social History Type Response Smoking Status Former smoker entered on: 08/26/15 Sex
--- OUTSIDE RECORDS SUMMARY | 2022-10-25 19:58 | XMS_ITS | Continuity of Care Document ---
Author Name Unknown Organization [facility] Address [address] [place] [address]- Care Team Providers Care Cs Associate Name Role Phone Destinee JIMENEZ, Roberta Merida Primary Care Physician [place] [facility] [place] - 04/14/[address] [address]- [facility] Attending Physician: Not on Staff, Attending MD Allergies, Adverse Reactions, Alerts Substance Reaction [...] mL, 3 Refills, Acute, 03/29/19 17:23:00 EST, [facility] #[id number], 30, TAKE 15ML BY MOUTH ONCE DAILY [...] back pain(Confirmed) Active Hypotension(Confirmed) Active Myalgia(Confirmed) Active *[id number]-[facility] Gina bobo Vimal Mcfarland(Confirmed) Active Pain of right sacroiliac joint(Confirmed) Active Lewy body dementia(Confirmed) Active Tinea cruris(Confirmed) Active Vitamin D deficiency(Confirmed) Active Social History Social History Type Response Smoking Status Former smoker entered on: 08/26/15 Sex
--- OUTSIDE RECORDS SUMMARY | 2022-10-25 19:58 | XMS_ITS | Continuity of Care Document ---
Author Name Unknown Organization [facility] Address [address] [place] [address]- Care Team Providers Care Gang Miner Name Role Phone Destinee JIMENEZ, Roberta Merida Primary Care Physician Encounter [facility] Date(s): 01/29/20 - 02/28/[address] [address]- Allergies, Adverse Reactions, Alerts Substance Reaction Severity [...] mL, 11 Refills, Maintenance, 10/03/19 11:19:00 EDT, [facility] #[id number], 1 drops Eyes, Both 3 times a [...] mL, 3 Refills, Maintenance, 10/04/19 11:21:00 EDT, [facility] #[id number], 30, 15 mL By Mouth Daily,PRN: NEEDED FOR CONSTIPATION, 160, cm, 03/22/19 15:22:00 EST, Height Start Date: 10/04/19 Status: Ordered levothyroxine 75 mcg (0.075 mg) oral tablet 1 tablet = 75 mcg, By Mouth, Daily, increase in dose, # 90 tablet, 1 Refills, Maintenance, 11/07/2009:50:00 EDT, Tablet, [facility] #[id number], 160, cm, 03/22/19 15:22:00 EST, Height Start Date: 11/08/19 Stop Date: 11/02/20 Status: Ordered midodrine 10 mg oral tablet 0.5 tablet = 5 mg, By Mouth, 3 times a day, # 270 tablet, 0 Refills, Maintenance, 03/22/19 15:33:00EST, Tablet Start Date: 03/22/19 Status: Ordered omeprazole 40 mg oral enteric coated capsule 1 capsule, By Mouth, Daily, # 90 capsule, 1 Refills, Maintenance, 11/23/19 15:26:00 EDT, [facility] #[id number], 160, cm, 03/22/19 15:22:00 EST, Height Start Date: 11/23/19 Status: Ordered traZODone 50 mg oral tablet 50 mg, 1, tablet, By Mouth, Daily at bedtime, # 30 tablet, Refills 0, Tot. Refills 0, Maintenance, 02/22/20 8:45:00 EST, Route to Pharmacy Electronically, [facility] #[id number], Partial fill upon patient request if the prescription is for a sche... Start Date: 02/22/20 Stop Date: 03/28/20 Status: Ordered warfarin 2.5 mg oral tablet 1 tablet, By Mouth, Daily, DIRECTED BY NURSE BASED ON INR RESULTS., # 30 tablet, 11 Refills, Maintenance, 09/18/19 16:11:00 EDT, [facility] #[id number], 160, cm, 03/22/19 15:22:00 EST, Height Start [...] Myalgia(Confirmed) Active Pre-syncope(Confirmed) Active Orthostatic hypotension(Confirmed) Active *[id number] Care Partn er Tracy Hurst(Confirmed) Active Pain of right sacroiliac joint(Confirmed) Active Lewy body dementia(Confirmed) Active Tinea cruris(Confirmed) Active Unintentional weight loss(Confirmed) Active Urinary incontinence(Confirmed) Active Vitamin D deficiency(Confirmed) Active Social History Social History Type Response Smoking Status Former smoker entered on: 08/26/15 Sex
--- OUTSIDE RECORDS SUMMARY | 2022-10-25 19:58 | XMS_ITS | Continuity of Care Document ---
Author Name Unknown Organization [facility] Address [address] [place] [address]- Care Team Providers Care Web Systems Developer Name Role Phone Roberta Felipe NP Primary Care Physician [phone] [place] [facility] [place] 06/27/20 - 07/27/[address] [address] Allergies, Adverse Reactions, Alerts Substance Reaction Severity [...] Given 1Result Comment: Administered by Dalia Olguin HIGH SCHOOL COMPUTER SCIENCE TEACHER 2Result Comment: incorrect brand entered 3Admin Note: VIS dated 09/13/11 4Admin Note: VIS dated 12/17/08 5Admin Note: VIS dated 04/03/11 Medications apixaban 2.5 mg oral tablet 1 tablet = 2.5 mg, By Mouth, 2 times a day, Transitioning from warfarin to apixaban, # 60 tablet, 11 Refills, Maintenance, 06/24/20 14:40:00 EDT, Tablet, [email or web address] #[id number], Partial fill upon patient request if the [...] 3 Refills, Maintenance, 05/19/20 14:56:00 EST, Tablet, [facility] #[id number], Partial fill upon patient request if the prescriptionis for a schedule II opioid drug., 160, cm, ... Start Date: 05/19/20 Stop Date: 09/16/20 Status: Ordered lidocaine 4% mucous membrane solution 1 application, Topically, 2 times a day, PRN Pain , Mild, # 1 each, 0 Refills, Maintenance, 05/22/20 16:43:00 EST, [email or web address] #[id number], Partial fill upon patient request if the prescription is for a schedule II opioid drug., 1 application Topi... Start Date: 05/22/20 Status: Ordered midodrine 5 mg oral tablet 5 mg, 1, tablet, By Mouth, 3 times a day, lower dose tablet, # 90 tablet, Refills 3, Tot. Refills 3, Maintenance, 06/23/20 14:16:00 EDT, Route to Pharmacy Electronically, [facility] #[id number],Partial fill upon patient request if the prescripti... [...] capsule, 0 Refills, Maintenance, 06/23/20 8:58:00 EDT, [facility] #[id number], 160, cm, 05/21/20 9:12:00 EST, Height, 57.86, kg, 04/12/20 23:44:00 EST, Dry Weight Start Date: 06/23/20 Status: Ordered traZODone 50 mg oral tablet 2, tablet, By Mouth, Daily at bedtime, # 60 tablet, Refills 3, Tot. Refills 0, Maintenance, 07/15/20 10:03:00 EDT, Route to Pharmacy Electronically, [facility] #[id number], 160, cm, 05/21/20 9:12:00 EST, Height, 57.86, [...] for urinary and stool incontinence R15.9, R32, 07/18/20 16:23:00 EDT, Supply Start Date: 07/18/20 Status: Ordered Problem List Condition Effective Dates [...] Myalgia(Confirmed) Active Pre-syncope(Confirmed) Active Orthostatic hypotension(Confirmed) Active *[id number] Care Partn er Tracy Hurst(Confirmed) Active Pain of right sacroiliac joint(Confirmed) Active Lewy body dementia(Confirmed) Active Tinea cruris(Confirmed) Active Unintentional weight loss(Confirmed) Active Urinary incontinence(Confirmed) Active Vitamin D deficiency(Confirmed) Active Social History Social History Type Response Smoking Status Former smoker entered on: 08/26/15 Sex
--- OUTSIDE RECORDS SUMMARY | 2022-10-25 19:58 | XMS_ITS | Continuity of Care Document ---
Author Name Unknown Organization [facility] Address [address] [place] [address]- Care Team Providers Care Transmission Calibration Engineer Name Role Phone Destinee JIMENEZ, Roberta Merida Primary Care Physician Encounter [facility] Date(s): 05/17/22 - 06/16/[address] [address]- Allergies, Adverse Reactions, Alerts Substance Reaction Severity Status penicillin rash Active Immunizations Given and Recorded Vaccine Date Status Refusal Reason [id number] 12y+ bivalent booster vax 03/05/22 Given influenza [...] inactivated 2 05/31/12 [facility] SARS-CoV-2 mRNA (iifbdyd-ljpk-hnogh) vax 06/19/21 Given SARS-CoV-2 (COVID-19) mRNA BNT-162b2 vac 05/17/20 Given SARS-CoV-2 (COVID-19) mRNA BNT-162b2 vac 3 04/26/20 Given pneumococcal 13-valent vaccine 08/31/16 Given pneumococcal 23-valent vaccine 4 05/31/12 Given tetanus/diphtheria/pertussis, acel(Tdap) 5 05/31/12 Given 1Result Comment: incorrect brand entered 2Admin Note: VIS dated 09/13/11 3Result Comment: Administered by Dalia Olguin CARE MANAGEMENT ASSOCIATE 4Admin Note: VIS dated 12/17/08 5Admin Note: VIS dated 04/03/11 Medications Artificial Tears preserved solution 1 drops, Eyes, Both, 4 times a day, PRN Dry Eyes, # 10 mL, 11 Refills, Maintenance, 01/26/22 14:13:00 EST, Ophth Solution, [facility] #[id number], Partial fill upon patient request if the [...] tablet, 5 Refills, Maintenance, 10/26/21 14:08:00 EDT, [facility] #[id number], Please print in english, 160, cm, 08/27/21 13:11:00 EDT, Height, 57.86, kg, 01/30/21 23:44:... Start Date: 10/26/21 Status: Ordered Diapers See Instructions, # 240 each, Refills 11, Tot. Refills 11, Maintenance, Size Large. Use up to 8 daily for urinary incontinence R32, 05/22/20 17:15:00 EST, Supply Start Date: 05/22/20 Status: Ordered docusate sodium 100 mg oral capsule 100 mg, 1, capsule, By Mouth, 2 times a day, PRN, # 60 capsule, Refills 3, Tot. Refills 3, Maintenance, for constipation, 01/26/22 14:13:00 EST, Route to Pharmacy Electronically, [facility][id number], Partial fill upon patient request if the pr... Start Date: 01/26/22 Status: Ordered Eucerin Eczema Relief topical cream 1 application, Topically, 2 times a day, # 240 Gm, 5 Refills, Maintenance, 01/15/21 16:05:00 EDT, [facility] #[id number], Partial fill upon patient request if the prescription is for a schedule II opioid drug., 1 application Topically 2 times a d... Start Date: 01/15/21 Status: Ordered guaiFENesin 400 mg oral tablet 1 tablet = 400 mg, By Mouth, Every 4 hours, PRN as needed for congestion and cough, # 30 tablet, 1 Refills, Maintenance, 08/27/21 13:40:00 EDT, Tablet, [facility] #[id number], Partial fill upon patient request if the [...] 2 Refills, Maintenance, 08/17/21 13:14:00 EDT, Syrup, [facility] #[id number], 15 mL By Mouth Daily,PRN:as needed for [...] tablet, 5 Refills, Maintenance, 10/26/21 14:08:00 EDT, Tablet, [facility] #[id number], Partial fill upon patient request if the prescription is for a schedule II opioid drug., 160, cm, 08/27/21 13:... Start Date: 10/26/21 Status: Ordered levothyroxine 75 mcg (0.075 mg) oral tablet 1 tablet = 75 mcg, By Mouth, Daily, TK 1 T PO D, # 90 tablet, 1 Refills, Maintenance, 04/21/22 9:43:00 EST, Tablet, [facility] #[id number], Partial fill upon patient request if the prescription is for a schedule II opioid drug., 160, cm, ... Start Date: 04/21/22 Status: Ordered lidocaine 4% mucous membrane solution 1 application, Topically, 2 times a day, PRN Pain , Mild, # 1 each, 0 Refills, Maintenance, 05/22/20 16:43:00 EST, [facility] #[id number], Partial fill upon patient request if the prescription is for a schedule II opioid drug., 1 application Topi... Start Date: 05/22/20 Status: Ordered midodrine 5 mg oral tablet 1, tablet, By Mouth, 3 times a day, # 90 tablet, Refills 3, Tot. Refills 3, Maintenance, 10/27/21 15:24:00 EDT, Route to Pharmacy Electronically, [facility] #[id number], 160, cm, 08/27/21 13:11:00 EDT, Height, 57.86, kg, 04/12/20 23:44:00 EST, [facility] Start Date: 10/27/21 Status: Ordered Nutritional Supplements See Instructions, # 90 each, Refills 11, Tot. Refills 11, Maintenance, 1.5 kcal/ml, 237 ml q 8 hrs by mouth Ensure, 1 can TID, for unintended weight loss related to advanced dementia R63.4, G31.83, 05/18/22 8:36:00 EST, Supply Start Date: 05/18/22 Status: Ordered omeprazole 40 mg oral enteric coated capsule 1 capsule, By Mouth, Daily, # 90 capsule, 1 Refills, 11/23/21 16:42:00 EDT, [facility] #[id number], 160, cm, 08/27/21 13:11:00 EDT, Height, 57.86, [...] 05/03/22 11:14:00 EST, Route to Pharmacy Electronically, [facility] #[id number], 160, cm, 04/19/22 17:27:00 EST, Height Start Date: 05/03/22 Status: Ordered Urinal See Instructions, # 3 each, Refills 0, Tot. Refills 0, Maintenance, Use as needed for urinating. 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 Z74.01, G31.83, 05/22/20 17:15:00 EST, Supply Start Date: 05/22/20 Status: Ordered Washable Food Beverage Manager Bed Pads Washable Food Beverage Manager Bed Pads, See Instructions, # 4 each, [...] Pre-syncope Confirmed Active Orthostatic hypotension Confirmed Active *[id number] Catholic Priest Yi Campos Confirmed Active Pain of right sacroiliac joint Confirmed Active Seizures Confirmed Active Lewy body dementia Confirmed Active Tinea cruris Confirmed Active Unintentional weight loss Confirmed Active Urinary incontinence Confirmed Active Vitamin D deficiency Confirmed Active Social History Social History Type Response Smoking Status Former smoker entered on: 08/26/15 Sex Patient Care team information Care Team Personnel Name: Matilde Mahmood RN Position: [facility] RN Member Role: Primary Care Nurse Name: Roberta Felipe NP Position: [facility] PCO Associate Professional Member Role: PCP Address: Address: [address] [place] [address]- Name: ALESSANDRO VILLATORO RN Position: [facility] RN Member Role: Primary Care Nurse Name: Lilo Maldonado RN Position: [facility] RN Member Role: Primary Care Nurse Name: Anuj Murillo RN Position: [facility] RN Member Role: Primary Care Nurse Name: Jasmin Oliva Position: [facility] Outreach Member Role: Lifetime Consulting Physician Name: Suzanne Celeste RN Position: [facility] RN Member Role: Primary Care Nurse Name: Lily Solis RN Position: [facility] Onco RN Member Role: Primary Care Nurse Name: Adela Tadeo RN Position: [facility] RN Member Role: Primary Care Nurse Name: Maci Jones RN Position: [facility] SN Coal Washer Member Role: Primary Care Nurse Name: Nancy Morrow RN Position: [facility] RN Member Role: Primary Care Nurse Name: Etta Dewitt RN Position: [facility] RN Member Role: Primary Care Nurse Care Team Related Persons Name: JESSIKA HEARD Address: home [address] [address] Name: JESSICA JOSUE Address: [address] [place] [address] Name: CARLOS CEJA Address: home [address] [address]
--- OUTSIDE RECORDS SUMMARY | 2022-10-25 19:58 | XMS_ITS | Continuity of Care Document ---
Author Name Unknown Organization [facility] Address [address] [place] [address]- Care Team Providers Care Commercial Reporter Name Role Phone Destinee JIMENEZ, Roberta Merida Primary Care Physician Encounter [facility] Date(s): 10/09/19 - 11/08/[address] [address]- [facility] Allergies, Adverse Reactions, Alerts Substance Reaction Severity [...] mL, 11 Refills, Maintenance, 10/03/19 11:19:00 EDT, [facility] #[id number], 1 drops Eyes, Both 3 times a [...] mL, 3 Refills, Maintenance, 10/04/19 11:21:00 EDT, [facility] #[id number], 30, 15 mL By Mouth Daily,PRN: NEEDED FOR CONSTIPATION, 160, cm, 03/22/19 15:22:00 EST, Height Start Date: 10/04/19 Status: Ordered levothyroxine 75 mcg (0.075 mg) oral tablet 1 tablet = 75 mcg, By Mouth, Daily, increase in dose, # 90 tablet, 1 Refills, Maintenance, 11/07/2009:50:00 EDT, Tablet, [facility] #[id number], 160, cm, 03/22/19 15:22:00 EST, Height Start [...] capsule, 0 Refills, Maintenance, 08/27/19 8:49:00 EDT, [facility] #[id number], 160, cm, 03/22/19 15:22:00 EST, Height Start Date: 08/27/19 Status: Ordered warfarin 2.5 mg oral tablet 1 tablet, By Mouth, Daily, DIRECTED BY NURSE BASED ON INR RESULTS., # 30 tablet, 11 Refills, Maintenance, 09/18/19 16:11:00 EDT, [facility] #[id number], 160, cm, 03/22/19 15:22:00 EST, Height Start [...] back pain(Confirmed) Active Hypotension(Confirmed) Active Myalgia(Confirmed) Active *[phone]-[facility] Partn christie- Vimal Mcfarland(Confirmed) Active Pain of right sacroiliac joint(Confirmed) Active Lewy body dementia(Confirmed) Active Tinea cruris(Confirmed) Active Urinary incontinence(Confirmed) Active Vitamin D deficiency(Confirmed) Active Social History Social History Type Response Smoking Status Former smoker entered on: 08/26/15 Sex
--- OUTSIDE RECORDS SUMMARY | 2022-10-25 19:58 | XMS_ITS | Continuity of Care Document ---
Author Name Unknown Organization [facility] Address [address] [place] [address]- Care Team Providers Care Framework Developer Name Role Phone Roberta Felipe NP Primary Care Physician Encounter [facility] Date(s): 07/31/20 - 08/30/[address] [address] Allergies, Adverse Reactions, Alerts Substance Reaction Severity [...] 11 Refills, Maintenance, 06/24/20 14:40:00 EDT, Tablet, [facility] #[id number], Partial fill upon patient request if the [...] 2 Refills, Maintenance, 08/08/20 16:52:00 EDT, Tablet, [facility] #[id number], Partial fill upon patient request if the [...] 09/16/20 14:56:00 EDT, 05/19/20 14:56:00 EST, Tablet, [facility] #[id number], Partial fill upon patient request if the prescription is for a schedule... Start Date: 05/19/20 Stop Date: 09/16/20 Status: Ordered levothyroxine 75 mcg (0.075 mg) oral tablet 1 tablet = 75 mcg, By Mouth, Daily, TK 1 T PO D, # 90 tablet, 1 Refills, Maintenance, 09/16/20 14:56:00 EDT, Tablet, [facility][id number], Partial fill upon patient request if the prescriptionis for a schedule II opioid drug., 160, cm, ... Start Date: 09/16/20 Stop Date: 01/14/21 Status: Ordered lidocaine 4% mucous membrane solution 1 application, Topically, 2 times a day, PRN Pain , Mild, # 1 each, 0 Refills, Maintenance, 05/22/20 16:43:00 EST, [facility][id number], Partial fill upon patient request if the prescription is for a schedule II opioid drug., 1 application Topi... Start Date: 05/22/20 Status: Ordered midodrine 5 mg oral tablet 5 mg, 1, tablet, By Mouth, 3 times a day, lower dose tablet, # 90 tablet, Refills 3, Tot. Refills 3, Maintenance, 06/23/20 14:16:00 EDT, Route to Pharmacy Electronically, [facility] #[id number],Partial fill upon patient request if the prescripti... [...] capsule, 0 Refills, Maintenance, 06/23/20 8:58:00 EDT, [facility] #[id number], 160, cm, 05/21/20 9:12:00 EST, Height, 57.86, kg, 04/12/20 23:44:00 EST, Dry Weight Start Date: 06/23/20 Status: Ordered traZODone 50 mg oral tablet 2, tablet, By Mouth, Daily at bedtime, # 60 tablet, Refills 3, Tot. Refills 0, Maintenance, 07/15/20 10:03:00 EDT, Route to Pharmacy Electronically, [facility] #[id number], 160, cm, 05/21/20 9:12:00 EST, Height, 57.86, [...] Myalgia(Confirmed) Active Pre-syncope(Confirmed) Active Orthostatic hypotension(Confirmed) Active *[phone] Care Partn er Tracy Hurst(Confirmed) Active Pain of right sacroiliac joint(Confirmed) Active Lewy body dementia(Confirmed) Active Tinea cruris(Confirmed) Active Unintentional weight loss(Confirmed) Active Urinary incontinence(Confirmed) Active Vitamin D deficiency(Confirmed) Active Social History Social History Type Response Smoking Status Former smoker entered on: 08/26/15 Sex
--- OUTSIDE RECORDS SUMMARY | 2022-10-25 19:58 | XMS_ITS | Continuity of Care Document ---
Author Name Unknown Organization [facility] Address [address] [place] [address]- Care Team Providers Care Meter Readers Supervisor Name Role Phone Destinee JIMENEZ, Roberta Merida Primary Care Physician Encounter [facility] Date(s): 08/12/21 - 09/11/[address] [address]- Allergies, Adverse Reactions, Alerts Substance Reaction Severity Status penicillin rash Active Immunizations Given and Recorded Vaccine Date Status Refusal Reason SARS-CoV-2 mRNA (ghmpnhk-zstp-dgptt) vax 06/19/21 Given influenza virus vaccine, inactivated [...] Refills, Maintenance, 11/06/20 13:04:00 EDT, Ophth Solution, [facility] #[id number], Partial fill upon patient request if the [...] tablet, 5 Refills, Maintenance, 11/20/20 11:43:00 EDT, [facility] #[id number], Please print in croatian, 160, cm, 11/04/20 11:39:00 EDT, Height, 57.86, [...] Gm, 5 Refills, Maintenance, 01/15/21 16:05:00 EDT, [facility] #[id number], Partial fill upon patient request if the prescription is for a schedule II opioid drug., 1 application Topically 2 times a d... Start Date: 01/15/21 Status: Ordered guaiFENesin 400 mg oral tablet 1 tablet = 400 mg, By Mouth, Every 4 hours, PRN as needed for congestion and cough, # 30 tablet, 1 Refills, Maintenance, 08/27/21 13:40:00 EDT, Tablet, [facility] #[id number], Partial fill upon patient request if the [...] 2 Refills, Maintenance, 08/17/21 13:14:00 EDT, Syrup, [facility] #[id number], 15 mL By Mouth Daily,PRN:as needed for [...] 3 Refills, Maintenance, 02/20/21 12:51:00 EST, Tablet, [facility] #[id number], Partial fill upon patient request if the prescription is for a schedule II opioid drug., 160, cm, 01/15/21 14:... Start Date: 02/20/21 Status: Ordered levothyroxine 75 mcg (0.075 mg) oral tablet 1 tablet = 75 mcg, By Mouth, Daily, TK 1 T PO D, # 90 tablet, 1 Refills, Maintenance, 02/19/21 13:28:00 EST, Tablet, [facility] #[id number], Partial fill upon patient request if the prescriptionis for a schedule II opioid drug., 160, cm, ... Start Date: 02/19/21 Status: Ordered lidocaine 4% mucous membrane solution 1 application, Topically, 2 times a day, PRN Pain , Mild, # 1 each, 0 Refills, Maintenance, 05/22/20 16:43:00 EST, [facility] #04012, Partial fill upon patient request if the prescription is for a schedule II opioid drug., 1 application Topi... Start Date: 05/22/20 Status: Ordered midodrine 5 mg oral tablet 1, tablet, By Mouth, 3 times a day, # 90 tablet, Refills 3, Tot. Refills 0, Maintenance, 10/22/20 13:38:00 EDT, Route to Pharmacy Electronically, [facility] #[id number], 160, cm, 09/26/20 14:49:00 EDT, Height, 57.86, [...] 90 capsule, 0 Refills, 09/02/21 13:12:00 EDT, [facility] #[id number], 160, cm, 08/27/21 13:11:00 EDT, Height, 57.86, kg, 04/12/20 23:44:00 EST, Dry Weight Start Date: 09/02/21 Status: Ordered traZODone 50 mg oral tablet 2, tablet, By Mouth, Daily at bedtime, # 60 tablet, Refills 2, Route to Pharmacy Electronically, [facility] #[id number], 160, cm, 11/04/20 11:39:00 EDT, Height, 57.86, [...] Myalgia(Confirmed) Active Pre-syncope(Confirmed) Active Orthostatic hypotension(Confirmed) Active *[phone] Care Partn er Tracy Hurst(Confirmed) Active Pain of right sacroiliac joint(Confirmed) Active Seizures(Confirmed) Active Lewy body dementia(Confirmed) Active Tinea cruris(Confirmed) Active Unintentional weight loss(Confirmed) Active Urinary incontinence(Confirmed) Active Vitamin D deficiency(Confirmed) Active Social History Social History Type Response Smoking Status Former smoker entered on: 08/26/15 Sex
--- OUTSIDE RECORDS SUMMARY | 2022-10-25 19:58 | XMS_ITS | Continuity of Care Document ---
Author Name Unknown Organization [facility] Address [address] [place] [address]- Care Team Providers Care Senior Service Technician Name Role Phone Destinee JIMENEZ, Roberta Merida Primary Care Physician Encounter [facility] Date(s): 01/25/22 - 02/24/[address] [address] Allergies, Adverse Reactions, Alerts Substance Reaction Severity Status penicillin rash Active Immunizations Given and Recorded Vaccine Date Status Refusal Reason SARS-CoV-2 mRNA (oqetzmq-obcy-hvmnv) vax 06/19/21 Given influenza virus vaccine, inactivated [...] dated 09/13/11 3Result Comment: Administered by Dalia Sharif INTERNAL CONTROL SPECIALIST 4Admin Note: VIS dated 12/17/08 5Admin Note: VIS dated 04/03/11 Medications Artificial Tears preserved solution 1 drops, Eyes, Both, 4 times a day, PRN Dry Eyes, # 10 mL, 11 Refills, Maintenance, 01/26/22 14:13:00 EST, Ophth Solution, [facility] #[id number], Partial fill upon patient request if the [...] ICD10: L89.92, R54, Z74.01 Dispens... Start Date: 12/15/21 Status: Ordered Barrier cream Barrier cream, See [...] tablet, 5 Refills, Maintenance, 10/26/21 14:08:00 EDT, [facility] #[id number], Please print in kyrgyz, 160, cm, 08/27/21 13:11:00 EDT, Height, 57.86, [...] 01/26/22 14:13:00 EST, Route to Pharmacy Electronically, [facility]#[id number], Partial fill upon patient request if the pr... Start Date: 01/26/22 Status: Ordered Eucerin Eczema Relief topical cream 1 application, Topically, 2 times a day, # 240 Gm, 5 Refills, Maintenance, 01/15/21 16:05:00 EDT, [facility] #[id number], Partial fill upon patient request if the prescription is for a schedule II opioid drug., 1 application Topically 2 times a d... Start Date: 01/15/21 Status: Ordered guaiFENesin 400 mg oral tablet 1 tablet = 400 mg, By Mouth, Every 4 hours, PRN as needed for congestion and cough, # 30 tablet, 1 Refills, Maintenance, 08/27/21 13:40:00 EDT, Tablet, [facility] #[id number], Partial fill upon patient request if the [...] 2 Refills, Maintenance, 08/17/21 13:14:00 EDT, Syrup, [facility] #[id number], 15 mL By Mouth Daily,PRN:as needed for [...] 5 Refills, Maintenance, 10/26/21 14:08:00 EDT, Tablet, [facility] #[id number], Partial fill upon patient request if the prescription is for a schedule II opioid drug., 160, cm, 08/27/21 13:... Start Date: 10/26/21 Status: Ordered levothyroxine 75 mcg (0.075 mg) oral tablet 1 tablet = 75 mcg, By Mouth, Daily, TK 1 T PO D, # 90 tablet, 1 Refills, Maintenance, 11/23/21 16:42:00 EDT, [facility] #[id number], Partial fill upon patient request if the prescriptionis for a schedule II opioid drug., 160, cm, ... Start Date: 11/23/21 Status: Ordered lidocaine 4% mucous membrane solution 1 application, Topically, 2 times a day, PRN Pain , Mild, # 1 each, 0 Refills, Maintenance, 05/22/20 16:43:00 EST, [facility] #[id number], Partial fill upon patient request if the prescription is for a schedule II opioid drug., 1 application Topi... Start Date: 05/22/20 Status: Ordered midodrine 5 mg oral tablet 1, tablet, By Mouth, 3 times a day, # 90 tablet, Refills 3, Tot. Refills 3, Maintenance, 10/27/21 15:24:00 EDT, Route to Pharmacy Electronically, [facility] #[id number], 160, cm, 08/27/21 13:11:00 EDT, Height, 57.86, kg, 04/12/20 23:44:00 EST, . Start Date: 10/27/21 Status: Ordered Nutritional Supplements See Instructions, # 90 each, Refills 11, Tot. Refills 11, Maintenance, 1.5 kcal/ml, 237 ml q 8 hrs by mouth, 02/26/21 17:12:00 EST, Supply Start Date: 02/26/21 Status: Ordered omeprazole 40 mg oral enteric coated capsule 1 capsule, By Mouth, Daily, # 90 capsule, 1 Refills, 11/23/21 16:42:00 EDT, [facility] #[id number], 160, cm, 08/27/21 13:11:00 EDT, Height, 57.86, kg, 04/12/20 23:44:00 EST, Dry Weight Start Date: 11/23/21 Status: Ordered traZODone 50 mg oral tablet 2, tablet, By Mouth, Daily at bedtime, # 60 tablet, Refills 2, Route to Pharmacy Electronically, [facility] #[id number], 160, cm, 11/04/20 11:39:00 EDT, Height, 57.86, [...] Date: 05/15/21 Status: Ordered Problem List Condition Confirmation Course [...] Pre-syncope Confirmed Active Orthostatic hypotension Confirmed Active *[id number] Housekeeping Associate Juliette Rand Confirmed Active Pain of right sacroiliac joint Confirmed Active Seizures Confirmed Active Lewy body dementia Confirmed Active Tinea cruris Confirmed Active Unintentional weight loss Confirmed Active Urinary incontinence Confirmed Active Vitamin D deficiency Confirmed Active Social History Social History Type Response Smoking Status Former smoker entered on: 08/26/15 Sex Patient Care team information Care Team Personnel Name: Matilde Mahmood RN Position: [facility] RN Member Role: Primary Care Nurse Name: Roberta Felipe NP Position: [facility] PCO Associate Professional Member Role: PCP Address: Address: [address] [place] [address] Name: ALESSANDRO VILLATORO RN Position: [facility] RN Member Role: Primary Care Nurse Name: Lilo Maldonado RN Position: [facility] RN Member Role: Primary Care Nurse Name: Anuj Murillo RN Position: [facility] RN Member Role: Primary Care Nurse Name: Jasmin Oliva Position: [facility] Outreach Member Role: Lifetime Consulting Physician Name: Suzanne Celeste RN Position: [facility] RN Member Role: Primary Care Nurse Name: Lily Solis RN Position: [facility] Onco RN Member Role: Primary Care Nurse Name: Adela Tadeo RN Position: [facility] RN Member Role: Primary Care Nurse Name: Maci Jones RN Position: [facility] RN Member Role: Primary Care Nurse Name: Nancy Morrow RN Position: [facility] RN Member Role: Primary Care Nurse Name: Etta Dewitt RN Position: [facility] RN Member Role: Primary Care Nurse Care Team Related Persons Name: JESSIKA HEARD Address: home [address] [place] [address] Name: JESSICA JOSUE Address: home [address] [place] [id number] Name: CARLOS CEJA Address: home [address] [place] [address]
--- OUTSIDE RECORDS SUMMARY | 2022-10-25 19:59 | XMS_ITS | Continuity of Care Document ---
Author Name Unknown Organization [facility] Address [address] [place] [address]- Care Team Providers Care Radiation Engineer Name Role Phone Destinee JIMENEZ, Roberta Merida Primary Care Physician [facility]counter [facility] Date(s): 06/08/22 - 07/08/[address] [address]- Allergies, Adverse Reactions, Alerts Substance Reaction Severity Status penicillin rash Active Immunizations Given and Recorded Vaccine Date Status Refusal Reason [id number] 12y+ bivalent booster vax 03/05/22 Given influenza [...] inactivated 2 05/31/12 Gi davonte SARS-CoV-2 mRNA (qifwyni-[id number]-hhnak) vax 06/19/21 Given SARS-CoV-2 (COVID-19) mRNA BNT-162b2 vac 05/17/20 Given SARS-CoV-2 (COVID-19) mRNA BNT-162b2 vac 3 04/26/20 Given pneumococcal 13-valent vaccine 08/31/16 Given pneumococcal 23-valent vaccine 4 05/31/12 Given tetanus/diphtheria/pertussis, acel(Tdap) 5 05/31/12 Given 1Result Comment: incorrect brand entered 2Admin Note: VIS dated 09/13/11 3Result Comment: Administered by Dalia Olguin MACHINE FEATHEREDGER AND REDUCER 4Admin Note: VIS dated 12/17/08 5Admin Note: VIS dated 04/03/11 Medications Artificial Tears preserved solution 1 drops, Eyes, Both, 4 times a day, PRN Dry Eyes, # 10 mL, 11 Refills, Maintenance, 01/26/22 14:13:00 EST, Ophth Solution, [email or web address] #[id number], Partial fill upon patient request if the [...] tablet, 5 Refills, Maintenance, 10/26/21 14:08:00 EDT, [email or web address] #[id number], Please print in guinean, 160, cm, 08/27/21 13:11:00 EDT, Height, 57.86, [...] Gm, 1 Refills, Maintenance, 06/18/2314:05:00 EDT, Cream, [facility] #08723, Partial fill upon patient request if the prescription is for a schedule II opioid drug., 1 applicatio... Start Date: 06/18/22 Status: Ordered docusate sodium 100 mg oral capsule 100 mg, 1, capsule, By Mouth, 2 times a day, PRN, # 60 capsule, Refills 3, Tot. Refills 3, Maintenance, for constipation, 01/26/22 14:13:00 EST, Route to Pharmacy Electronically, [email or web address][id number], Partial fill upon patient request if the pr... Start Date: 01/26/22 Status: Ordered Eucerin Eczema Relief topical cream 1 application, Topically, 2 times a day, # 240 Gm, 5 Refills, Maintenance, 01/15/21 16:05:00 EDT, [email or web address] #[id number], Partial fill upon patient request if the prescription is for a schedule II opioid drug., 1 application Topically 2 times a d... Start Date: 01/15/21 Status: Ordered guaiFENesin 400 mg oral tablet 1 tablet = 400 mg, By Mouth, Every 4 hours, PRN as needed for congestion and cough, # 30 tablet, 1 Refills, Maintenance, 08/27/21 13:40:00 EDT, Tablet, [email or web address] #[id number], Partial fill upon patient request if the [...] 2 Refills, Maintenance, 08/17/21 13:14:00 EDT, Syrup, [email or web address] #83215, 15 mL By Mouth Daily,PRN:as needed for [...] tablet, 5 Refills, Maintenance, 10/26/21 14:08:00 EDT, [email or web address] #[id number], Partial fill upon patient request if the prescription is for a schedule II opioid drug., 160, cm, 08/27/21 13:... Start Date: 10/26/21 Status: Ordered levothyroxine 75 mcg (0.075 mg) oral tablet 1 tablet = 75 mcg, By Mouth, Daily, TK 1 T PO D, # 90 tablet, 1 Refills, Maintenance, 04/21/22 9:43:00 EST, [facility] #[id number], Partial fill upon patient request if the prescription is for a schedule II opioid drug., 160, cm, 02/06/2... Start Date: 04/21/22 Status: Ordered lidocaine 4% mucous membrane solution 1 application, Topically, 2 times a day, PRN Pain , Mild, # 1 each, 0 Refills, Maintenance, 05/22/20 16:43:00 EST, [email or web address] #[id number], Partial fill upon patient request if the prescription is for a schedule II opioid drug., 1 application Topi... Start Date: 05/22/20 Status: Ordered midodrine 5 mg oral tablet 1, tablet, By Mouth, 3 times a day, # 90 tablet, Refills 3, Tot. Refills 3, Maintenance, 10/27/21 15:24:00 EDT, Route to Pharmacy Electronically, [email or web address] #[id number], 160, cm, 08/27/21 13:11:00 EDT, Height, 57.86, kg, 04/12/20 23:44:00 EST, [facility] Start Date: 10/27/21 Status: Ordered Nutritional Supplements See Instructions, # 90 each, Refills 11, Tot. Refills 11, Maintenance, 350 kcal, 8oz, q 8 hrs by mouth Ensure Plus, 1 can TID, for unintended weight loss related to advanced dementia R63.4, G31.83, 06/18/22 15:27:00 EDT, Supply Start Date: 06/18/22 Status: Ordered omeprazole 40 mg oral enteric coated capsule 1 capsule, By Mouth, Daily, # 90 capsule, 1 Refills, 11/23/21 16:42:00 EDT, [email or web address] #[id number], 160, cm, 08/27/21 13:11:00 EDT, Height, 57.86, [...] 05/03/22 11:14:00 EST, Route to Pharmacy Electronically, [facility] #[id number], 160, cm, 04/19/22 17:27:00 EST, Height Start Date: 05/03/22 Status: Ordered Urinal See Instructions, # 3 each, Refills 0, Tot. Refills 0, Maintenance, Use as needed for urinating. 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 Z74.01, G31.83, 05/22/20 17:15:00 EST, Supply Start Date: 05/22/20 Status: Ordered Washable Collect On Delivery Clerk Bed Pads Washable Collect On Delivery Clerk Bed Pads, See Instructions, # 4 each, [...] Pre-syncope Confirmed Active Orthostatic hypotension Confirmed Active *[phone] Corporate Operations Compliance Manager Yi Campos Confirmed Active Pain of right sacroiliac joint Confirmed Active Seizures Confirmed Active Lewy body dementia Confirmed Active Tinea cruris Confirmed Active Unintentional weight loss Confirmed Active Urinary incontinence Confirmed Active Vitamin D deficiency Confirmed Active Social History Social History Type Response Smoking Status Former smoker entered on: 08/26/15 Sex Patient Care team information Care Team Personnel Name: Matilde Mahmood RN Position: [facility] RN Member Role: Primary Care Nurse Name: Roberta Felipe NP Position: [facility] PCO Associate Professional Member Role: PCP Address: Address: [address] [place] [id number] Name: Maci Kruse RN Position: [facility] SN RN Member Role: Primary Care Nurse Name: Lyudmila Ortez RN Position: [facility] RN Member Role: Primary Care Nurse Name: Lilo Maldonado RN Position: [facility] RN Member Role: Primary Care Nurse Name: Anuj Murillo RN Position: [facility] RN Member Role: Primary Care Nurse Name: Jasmin Oliva Position: [facility] Outreach Member Role: Lifetime Consulting Physician Name: Suzanne Celeste RN Position: [facility] RN Member Role: Primary Care Nurse Name: Lily Solis RN Position: [facility] Onco RN Member Role: Primary Care Nurse Name: Adela Tadeo RN Position: [facility] RN Member Role: Primary Care Nurse Name: Nancy Morrow RN Position: [facility] RN Member Role: Primary Care Nurse Name: Etta Dewitt RN Position: [facility] RN Member Role: Primary Care Nurse Care Team Related Persons Name: JESSIKA HEARD Address: [address] [address] Name: JESSICA JOSUE Address: home [address] [place] [address] Name: CARLOS CEJA Address: home [address] [address]
--- OUTSIDE RECORDS SUMMARY | 2022-10-25 19:59 | XMS_ITS | Continuity of Care Document ---
Author Name Unknown Organization [facility] Address [address] [place] [address]- Care Team Providers Care Funeral Prearrangement Counselor Name Role Phone Roberta Felipe NP Primary Care Physician [facility]counter [facility] Date[facility]s): 04/30/20 - 05/30/[address] [address]- Allergies, Adverse Reactions, Alerts Substance Reaction Severity [...] 3 Refills, Maintenance, 05/19/20 14:56:00 EST, Tablet, [facility] #[id number], Partial fill upon patient request if the prescriptionis for a schedule II opioid drug., 160, cm, ... Start Date: 05/19/20 Stop Date: 09/16/20 Status: Ordered lidocaine 4% mucous membrane solution 1 application, Topically, 2 times a day, PRN Pain , Mild, # 1 each, 0 Refills, Maintenance, 05/22/20 16:43:00 EST, [facility] #68137, Partial fill upon patient request if the [...] capsule, 0 Refills, Maintenance, 04/16/20 14:22:00 EST, [facility] #[id number], 160, cm, 04/16/20 8:39:00 EST, Height, 57.86, [...] 0 Refills, Maintenance, 04/16/20 12:40:00 EST, Tablet, [facility] #[id number], Partial fill upon patient request if the [...] Myalgia(Confirmed) Active Pre-syncope(Confirmed) Active Orthostatic hypotension(Confirmed) Active *[id number] Care Partn er Tracy Natali(Confirmed) Active Pain of right sacroiliac joint(Confirmed) Active Lewy body dementia(Confirmed) Active Tinea cruris(Confirmed) Active Unintentional weight loss(Confirmed) Active Urinary incontinence(Confirmed) Active Vitamin D deficiency(Confirmed) Active Social History Social History Type Response Smoking Status Former smoker entered on: 08/26/15 Sex
--- OUTSIDE RECORDS SUMMARY | 2022-10-25 19:59 | XMS_ITS | Continuity of Care Document ---
Author Name Unknown Organization [facility] Address [address] [place] [address]- Care Team Providers Care Seam Steamer Name Role Phone Roberta Felipe NP Primary Care Physician [phone] Encounter [facility] Date(s): 07/18/20 - 08/17/[address] [address]- Allergies, Adverse Reactions, Alerts Substance Reaction Severity [...] Given 1Result Comment: Administered by Dalia Olguin FILLING CARRIER 2Result Comment: incorrect brand entered 3Admin Note: VIS dated 09/13/11 4Admin Note: VIS dated 12/17/08 5Admin Note: VIS dated 04/03/11 Medications apixaban 2.5 mg oral tablet 1 tablet = 2.5 mg, By Mouth, 2 times a day, Transitioning from warfarin to apixaban, # 60 tablet, 11 Refills, Maintenance, 06/24/20 14:40:00 EDT, Tablet, [facility] #[id number], Partial fill upon patient request if the [...] 2 Refills, Maintenance, 08/08/20 16:52:00 EDT, Tablet, [facility] #36959, Partial fill upon patient request if the [...] 09/16/20 14:56:00 EDT, 05/19/20 14:56:00 EST, Tablet, [facility] #56332, Partial fill upon patient request if the prescription is for a schedule... Start Date: 05/19/20 Stop Date: 09/16/20 Status: Ordered levothyroxine 75 mcg (0.075 mg) oral tablet 1 tablet = 75 mcg, By Mouth, Daily, TK 1 T PO D, # 90 tablet, 1 Refills, Maintenance, 09/16/20 14:56:00 EDT, Tablet, [facility] #84314, Partial fill upon patient request if the prescriptionis for a schedule II opioid drug., 160, cm, ... Start Date: 09/16/20 Stop Date: 01/14/21 Status: Ordered lidocaine 4% mucous membrane solution 1 application, Topically, 2 times a day, PRN Pain , Mild, # 1 each, 0 Refills, Maintenance, 05/22/20 16:43:00 EST, [facility] #[id number], Partial fill upon patient request if the prescription is for a schedule II opioid drug., 1 application Topi... Start Date: 05/22/20 Status: Ordered midodrine 5 mg oral tablet 5 mg, 1, tablet, By Mouth, 3 times a day, lower dose tablet, # 90 tablet, Refills 3, Tot. Refills 3, Maintenance, 06/23/20 14:16:00 EDT, Route to Pharmacy Electronically, [facility] #[id number],Partial fill upon patient request if the prescripti... [...] capsule, 0 Refills, Maintenance, 06/23/20 8:58:00 EDT, [facility] #56126, 160, cm, 05/21/20 9:12:00 EST, Height, 57.86, kg, 04/12/20 23:44:00 EST, Dry Weight Start Date: 06/23/20 Status: Ordered traZODone 50 mg oral tablet 2, tablet, By Mouth, Daily at bedtime, # 60 tablet, Refills 3, Tot. Refills 0, Maintenance, 07/15/20 10:03:00 EDT, Route to Pharmacy Electronically, [facility] #[id number], 160, cm, 05/21/20 9:12:00 EST, Height, 57.86, [...] Myalgia(Confirmed) Active Pre-syncope(Confirmed) Active Orthostatic hypotension(Confirmed) Active *[id number] Care Partn er Tracy Hurst(Confirmed) Active Pain of right sacroiliac joint(Confirmed) Active Lewy body dementia(Confirmed) Active Tinea cruris(Confirmed) Active Unintentional weight loss(Confirmed) Active Urinary incontinence(Confirmed) Active Vitamin D deficiency(Confirmed) Active Social History Social History Type Response Smoking Status Former smoker entered on: 08/26/15 Sex
--- OUTSIDE RECORDS SUMMARY | 2022-10-25 19:59 | XMS_ITS | Continuity of Care Document ---
Author Name Unknown Organization [facility] Address [address] [place] [address]- Care Team Providers Care Mold Blower Name Role Phone Destinee JIMENEZ, Roberta Merida Primary Care Physician [facility] Date(s): 11/20/19 - 12/20/[address] [address]- [facility] Allergies, Adverse Reactions, Alerts Substance Reaction [...] mL, 11 Refills, Maintenance, 10/03/19 11:19:00 EDT, [facility] #[id number], 1 drops Eyes, Both 3 times a [...] mL, 3 Refills, Maintenance, 10/04/19 11:21:00 EDT, [facility][id number], 30, 15 mL By Mouth Daily,PRN: NEEDED FOR CONSTIPATION, 160, cm, 03/22/19 15:22:00 EST, Height Start Date: 10/04/19 Status: Ordered levothyroxine 75 mcg (0.075 mg) oral tablet 1 tablet = 75 mcg, By Mouth, Daily, increase in dose, # 90 tablet, 1 Refills, Maintenance, 11/07/2009:50:00 EDT, Tablet, [facility] #[id number], 160, cm, 03/22/19 15:22:00 EST, Height Start [...] capsule, 1 Refills, Maintenance, 11/23/19 15:26:00 EDT, [facility] #[id number], 160, cm, 03/22/19 15:22:00 EST, Height Start Date: 11/23/19 Status: Ordered warfarin 2.5 mg oral tablet 1 tablet, By Mouth, Daily, DIRECTED BY NURSE BASED ON INR RESULTS., # 30 tablet, 11 Refills, Maintenance, 09/18/19 16:11:00 EDT, [facility] #09178, 160, cm, 03/22/19 15:22:00 EST, Height Start [...] back pain(Confirmed) Active Hypotension(Confirmed) Active Myalgia(Confirmed) Active *[id number]-[facility] Partn jeramie Mcfarland(Confirmed) Active Pain of right sacroiliac joint(Confirmed) Active Lewy body dementia(Confirmed) Active Tinea cruris(Confirmed) Active Urinary incontinence(Confirmed) Active Vitamin D deficiency(Confirmed) Active Social History Social History Type Response Smoking Status Former smoker entered on: 08/26/15 Sex
--- OUTSIDE RECORDS SUMMARY | 2022-10-25 19:59 | XMS_ITS | Continuity of Care Document ---
Author Name Unknown Organization [facility] Address [address] [place] [address]- Care Team Providers Care Associate Professor Of Psychology Name Role Phone Destinee JIMENEZ, Roberta Merida Primary Care Physician [phone] Encounter [facility] ACCT R [id number] Date(s): 03/05/22 - 04/04/[address] [address]- Attending Physician: Hiren Blackburn Admitting Physician: Hiren Blackburn Referring Physician: AdmtrHiren Allergies, Adverse Reactions, Alerts Substance Reaction Severity Status penicillin rash Active Immunizations Given and Recorded Vaccine Date Status Refusal Reason [id number] 12y+ bivalent booster vax 03/05/22 Given influenza [...] inactivated 2 05/31/12 Gi davonte SARS-CoV-2 mRNA (zneeexu-dbtf-sohft) vax 06/19/21 Given SARS-CoV-2 (COVID-19) mRNA BNT-162b2 [...] Refills, Maintenance, 01/26/22 14:13:00 EST, Ophth Solution, [facility] #[id number], Partial fill upon patient request if the [...] tablet, 5 Refills, Maintenance, 10/26/21 14:08:00 EDT, [facility] #[id number], Please print in mongolian, 160, cm, 08/27/21 13:11:00 EDT, Height, 57.86, [...] 01/26/22 14:13:00 EST, Route to Pharmacy Electronically, [facility]#32953, Partial fill upon patient request if the pr... Start Date: 01/26/22 Status: Ordered Eucerin Eczema Relief topical cream 1 application, Topically, 2 times a day, # 240 Gm, 5 Refills, Maintenance, 01/15/21 16:05:00 EDT, [facility] #36410, Partial fill upon patient request if the prescription is for a schedule II opioid drug., 1 application Topically 2 times a d... Start Date: 01/15/21 Status: Ordered guaiFENesin 400 mg oral tablet 1 tablet = 400 mg, By Mouth, Every 4 hours, PRN as needed for congestion and cough, # 30 tablet, 1 Refills, Maintenance, 08/27/21 13:40:00 EDT, Tablet, [facility] #07687, Partial fill upon patient request if the [...] 2 Refills, Maintenance, 08/17/21 13:14:00 EDT, Syrup, [facility] #13208, 15 mL By Mouth Daily,PRN:as needed for [...] tablet, 5 Refills, Maintenance, 10/26/21 14:08:00 EDT, [email or web address] #00449, Partial fill upon patient request if the prescription is for a schedule II opioid drug., 160, cm, 08/27/21 13:... Start Date: 10/26/21 Status: Ordered levothyroxine 75 mcg (0.075 mg) oral tablet 1 tablet = 75 mcg, By Mouth, Daily, TK 1 T PO D, # 90 tablet, 1 Refills, Maintenance, 11/23/21 16:42:00 EDT, [email or web address] #80776, Partial fill upon patient request if the prescriptionis for a schedule II opioid drug., 160, cm, ... Start Date: 11/23/21 Status: Ordered lidocaine 4% mucous membrane solution 1 application, Topically, 2 times a day, PRN Pain , Mild, # 1 each, 0 Refills, Maintenance, 05/22/20 16:43:00 EST, [facility] #[id number], Partial fill upon patient request if the prescription is for a schedule II opioid drug., 1 application Topi... Start Date: 05/22/20 Status: Ordered midodrine 5 mg oral tablet 1, tablet, By Mouth, 3 times a day, # 90 tablet, Refills 3, Tot. Refills 3, Maintenance, 10/27/21 15:24:00 EDT, [id number], 160, cm, 08/27/21 13:11:00 EDT, Height, 57.86, [...] 90 capsule, 1 Refills, 11/23/21 16:42:00 EDT, [facility][id number], 160, cm, 08/27/21 13:11:00 EDT, Height, 57.86, kg, 04/12/20 23:44:00 EST, Dry Weight Start Date: 11/23/21 Status: Ordered traZODone 50 mg oral tablet 2, tablet, By Mouth, Daily at bedtime, # 60 tablet, Refills 2, [id number], 160, cm, 11/04/20 11:39:00 EDT, Height, 57.86, [...] Pre-syncope Confirmed Active Orthostatic hypotension Confirmed Active *[id number] Health Manager Yi Campos Confirmed Active Pain of [...] Team Personnel Name: Matilde Mahmood RN Position: [facility] RN Member Role: Primary Care Nurse Name: Roberta Felipe NP Position: [facility] PCO Associate Professional Member Role: PCP Address: Address: [address] [place] [address] Name: ALESSANDRO VILLATORO RN Position: [facility] RN Member Role: Primary Care Nurse Name: Lilo Maldonado RN Position: [facility] RN Member Role: Primary Care Nurse Name: Anuj Murillo RN Position: [facility] RN Member Role: Primary Care Nurse Name: Jasmin Oliva Position: [facility] Outreach Member Role: Lifetime Consulting Physician Name: Suzanne Celeste RN Position: [facility] RN Member Role: Primary Care Nurse Name: Lily Solis RN Position: [facility] Onco RN Member Role: Primary Care Nurse Name: Adela Tadeo RN Position: [facility] RN Member Role: Primary Care Nurse Name: Maci Jones RN Position: [facility] RN Member Role: Primary Care Nurse Name: Nancy Morrow RN Position: [facility] RN Member Role: Primary Care Nurse Name: Etta Dewitt RN Position: S RN Member Role: Primary Care Nurse Care Team Related Persons Name: JESSIKA HEARD Address: home [address] [place] [id number] Name: JESSICA JOSUE Address: home [address] [place] [id number] Name: CARLOS CEJA Address: [address] [address]
--- OUTSIDE RECORDS SUMMARY | 2022-10-25 19:59 | XMS_ITS | Continuity of Care Document ---
Author Name Unknown Organization [facility] Address [address] [place] [address]- Care Team Providers Care Automatic Spinning Lathe Operator Name Role Phone Destinee JIMENEZ, Roberta Merida Primary Care Physician [phone] [place] [facility] Date[place] 10/16/19 - 11/15/[address] [address]- [facility] Allergies, Adverse Reactions, Alerts Substance [...] mL, 11 Refills, Maintenance, 10/03/19 11:19:00 EDT, [facility] #[id number], 1 drops Eyes, Both 3 times a [...] mL, 3 Refills, Maintenance, 10/04/19 11:21:00 EDT, [facility] #[id number], 30, 15 mL By Mouth Daily,PRN: NEEDED FOR CONSTIPATION, 160, cm, 03/22/19 15:22:00 EST, Height Start Date: 10/04/19 Status: Ordered levothyroxine 75 mcg (0.075 mg) oral tablet 1 tablet = 75 mcg, By Mouth, Daily, increase in dose, # 90 tablet, 1 Refills, Maintenance, 11/07/2009:50:00 EDT, Tablet, [facility] #[id number], 160, cm, 03/22/19 15:22:00 EST, Height Start [...] capsule, 0 Refills, Maintenance, 08/27/19 8:49:00 EDT, [facility] #[id number], 160, cm, 03/22/19 15:22:00 EST, Height Start Date: 08/27/19 Status: Ordered warfarin 2.5 mg oral tablet 1 tablet, By Mouth, Daily, DIRECTED BY NURSE BASED ON INR RESULTS., # 30 tablet, 11 Refills, Maintenance, 09/18/19 16:11:00 EDT, [facility] #29598, 160, cm, 03/22/19 15:22:00 EST, Height Start [...] back pain(Confirmed) Active Hypotension(Confirmed) Active Myalgia(Confirmed) Active *[id number]-[facility] Partn christie- Vimal Mcfarland(Confirmed) Active Pain of right sacroiliac joint(Confirmed) Active Lewy body dementia(Confirmed) Active Tinea cruris(Confirmed) Active Urinary incontinence(Confirmed) Active Vitamin D deficiency(Confirmed) Active Social History Social History Type Response Smoking Status Former smoker entered on: 08/26/15 Sex
--- OUTSIDE RECORDS SUMMARY | 2022-10-25 19:59 | XMS_ITS | Continuity of Care Document ---
Author Name Unknown Organization [facility] Address [address] [place] [address]- [place] [facility] [place] [id number] Date(s): 02/21/20 - 03/22/[address] [address]-
--- OUTSIDE RECORDS SUMMARY | 2022-10-25 19:59 | XMS_ITS | Continuity of Care Document ---
Author Name Unknown Organization [facility] Address [address] [place] [address]- Care Team Providers Care Upper Doubler Name Role Phone Destinee JIMENEZ, Roberta Merida Primary Care Physician [phone] Encounter [facility] Date(s): 08/21/20 - 09/20/[address] [address]- Allergies, Adverse Reactions, Alerts Substance Reaction Severity [...] 11 Refills, Maintenance, 06/24/20 14:40:00 EDT, Tablet, [facility] #[id number], Partial fill upon patient request if the [...] 2 Refills, Maintenance, 08/08/20 16:52:00 EDT, Tablet, [facility] #[id number], Partial fill upon patient request if the prescription is for a schedule II opioid drug., 160, cm, 07/18/20 15:... Start Date: 08/08/20 Stop Date: 11/06/20 Status: Ordered levothyroxine 75 mcg (0.075 mg) oral tablet 1 tablet = 75 mcg, By Mouth, Daily, TK 1 T PO D, # 90 tablet, 1 Refills, Maintenance, 09/16/20 14:56:00 EDT, Tablet, [facility] #[id number], Partial fill upon patient request if the prescriptionis for a schedule II opioid drug., 160, cm, ... Start Date: 09/16/20 Stop Date: 01/14/21 Status: Ordered lidocaine 4% mucous membrane solution 1 application, Topically, 2 times a day, PRN Pain , Mild, # 1 each, 0 Refills, Maintenance, 05/22/20 16:43:00 EST, [facility] #[id number], Partial fill upon patient request if the prescription is for a schedule II opioid drug., 1 application Topi... Start Date: 05/22/20 Status: Ordered midodrine 5 mg oral tablet 5 mg, 1, tablet, By Mouth, 3 times a day, lower dose tablet, # 90 tablet, Refills 3, Tot. Refills 3, Maintenance, 06/23/20 14:16:00 EDT, Route to Pharmacy Electronically, [facility] #[id number],Partial fill upon patient request if the prescripti... [...] capsule, 0 Refills, Maintenance, 09/10/20 8:11:00 EDT, [facility] #[id number], 160, cm, 08/21/20 12:36:00 EDT, Height, 57.86, kg, 04/12/20 23:44:00 EST, Dry Weight Start Date: 09/10/20 Status: Ordered traZODone 50 mg oral tablet 2, tablet, By Mouth, Daily at bedtime, # 60 tablet, Refills 3, Tot. Refills 0, Maintenance, 07/15/20 10:03:00 EDT, Route to Pharmacy Electronically, [facility] #[id number], 160, cm, 05/21/20 9:12:00 EST, Height, 57.86, [...] Myalgia(Confirmed) Active Pre-syncope(Confirmed) Active Orthostatic hypotension(Confirmed) Active *[id number] Care Partn er Tracy Hurst(Confirmed) Active Pain of right sacroiliac joint(Confirmed) Active Lewy body dementia(Confirmed) Active Tinea cruris(Confirmed) Active Unintentional weight loss(Confirmed) Active Urinary incontinence(Confirmed) Active Vitamin D deficiency(Confirmed) Active Social History Social History Type Response Smoking Status Former smoker entered on: 08/26/15 Sex
--- OUTSIDE RECORDS SUMMARY | 2022-10-25 19:59 | XMS_ITS | Continuity of Care Document ---
Author Name Unknown Organization [facility] Address [address] [place] [address]- Care Team Providers Care Commercial Loan Processor Name Role Phone Destinee JIMENEZ, Roberta Merida Primary Care Physician Encounter [facility] Date(s): 02/27/20 - 03/28/[address] [address]- Allergies, Adverse Reactions, Alerts Substance Reaction Severity [...] mL, 11 Refills, Maintenance, 10/03/19 11:19:00 EDT, [facility] #[id number], 1 drops Eyes, Both 3 times a day,PRN:as needed for dry eyes, 160, cm, 03/22/19 15:22:00 EST, Height Start Date: 10/03/19 Status: Ordered Compression Stockings See Instructions, # 3 each, Refills 3, Tot. Refills 3, Maintenance, surgical, knee length 20-30 mm Hg Wear daily to improve circulation for orthostatic hypotension I95.1, 03/13/20 8:42:00 EST, Compound Start Date: 03/13/20 Status: Ordered disposable bed pads disposable bed [...] mL, 3 Refills, Maintenance, 10/04/19 11:21:00 EDT, [facility] #[id number], 30, 15 mL By Mouth Daily,PRN: NEEDED FOR CONSTIPATION, 160, cm, 03/22/19 15:22:00 EST, Height Start Date: 10/04/19 Status: Ordered levothyroxine 75 mcg (0.075 mg) oral tablet 1 tablet = 75 mcg, By Mouth, Daily, increase in dose, # 90 tablet, 1 Refills, Maintenance, 11/07/2009:50:00 EDT, Tablet, [facility] #[id number], 160, cm, 03/22/19 15:22:00 EST, Height Start Date: 11/08/19 Stop Date: 11/02/20 Status: Ordered midodrine 10 mg oral tablet 0.5 tablet = 5 mg, By Mouth, 3 times a day, # 45 tablet, 5 Refills, Maintenance, 03/27/20 10:17:00 EST, Tablet, [facility] #[id number], Partial fill upon patient request if the prescription is for a schedule II opioid drug., 160, cm, 03/13/20 8:2... Start Date: 03/27/20 Stop Date: 09/23/20 Status: Ordered omeprazole 40 mg oral enteric coated capsule 1 capsule, By Mouth, Daily, # 90 capsule, 1 Refills, Maintenance, 11/23/19 15:26:00 EDT, [facility] #[id number], 160, cm, 03/22/19 15:22:00 EST, Height Start Date: 11/23/19 Status: Ordered Reusable bed pads Reusable bed pads, See Instructions, # 5 each, Refills 0, Tot. Refills 0, Maintenance, Use every night for incontinence of urine and feces. R32, R15.9, 03/13/20 8:48:00 EST, Supply Start Date: 03/13/20 Status: Ordered traZODone 50 mg oral tablet 100 mg, 2, tablet, By Mouth, Daily at bedtime, # 60 tablet, Refills 3, Tot. Refills 3, Maintenance,03/27/20 10:16:00 EST, Route to Pharmacy Electronically, [facility] #[id number], Partial fill upon patient request if the prescription is for a sc... Start Date: 03/27/20 Stop Date: 07/25/20 Status: Ordered warfarin 2.5 mg oral tablet 1 tablet, By Mouth, Daily, DIRECTED BY NURSE BASED ON INR RESULTS., # 30 tablet, 11 Refills, Maintenance, 09/18/19 16:11:00 EDT, [facility] #[id number], 160, cm, 03/22/19 15:22:00 EST, Height Start [...] Myalgia(Confirmed) Active Pre-syncope(Confirmed) Active Orthostatic hypotension(Confirmed) Active *[phone] Care Partn er Tracy Lagosan(Confirmed) Active Pain of right sacroiliac joint(Confirmed) Active Lewy body dementia(Confirmed) Active Tinea cruris(Confirmed) Active Unintentional weight loss(Confirmed) Active Urinary incontinence(Confirmed) Active Vitamin D deficiency(Confirmed) Active Social History Social History Type Response Smoking Status Former smoker entered on: 08/26/15 Sex
--- OUTSIDE RECORDS SUMMARY | 2022-10-25 19:59 | XMS_ITS | Continuity of Care Document ---
Author Name Unknown Organization [facility] Address [address] [place] [id number]- Care Team Providers Care Business Continuity Global Director Name Role Phone Roberta Felipe NP Primary Care Physician Encounter [facility] [place] Date(s): 02/04/20 - 03/20/[address] [address]- Attending Physician: Naya Fermin MD Admitting Physician: Naya Fermin MD Referring Physician: Roberta Felipe NP Allergies, [...] mL, 11 Refills, Maintenance, 10/03/19 11:19:00 EDT, [facility] #[id number], 1 drops Eyes, Both 3 times a [...] mL, 3 Refills, Maintenance, 10/04/19 11:21:00 EDT, [facility] #[id number], 30, 15 mL By Mouth Daily,PRN: NEEDED FOR CONSTIPATION, 160, cm, 03/22/19 15:22:00 EST, Height Start Date: 10/04/19 Status: Ordered levothyroxine 75 mcg (0.075 mg) oral tablet 1 tablet = 75 mcg, By Mouth, Daily, increase in dose, # 90 tablet, 1 Refills, Maintenance, 11/07/2009:50:00 EDT, Tablet, [facility] #[id number], 160, cm, 03/22/19 15:22:00 EST, Height Start [...] capsule, 1 Refills, Maintenance, 11/23/19 15:26:00 EDT, [facility] #[id number], 160, cm, 03/22/19 15:22:00 EST, Height Start Date: 11/23/19 Status: Ordered Reusable bed pads Reusable bed pads, See Instructions, # 5 each, Refills 0, Tot. Refills 0, Maintenance, Use every night for incontinence of urine and feces. R32, R15.9, 03/13/20 8:48:00 EST, Supply Start Date: 03/13/20 Status: Ordered traZODone 50 mg oral tablet 75 mg, 1.5, tablet, By Mouth, Daily at bedtime, # 45 tablet, Refills 3, Tot. Refills 3, Maintenance, 03/13/20 9:32:00 EST, Route to Pharmacy Electronically, [facility] #[id number], Partial fill upon patient request if the prescription is for a sc... Start Date: 03/13/20 Stop Date: 07/11/20 Status: Ordered warfarin 2.5 mg oral tablet 1 tablet, By Mouth, Daily, DIRECTED BY NURSE BASED ON INR RESULTS., # 30 tablet, 11 Refills, Maintenance, 09/18/19 16:11:00 EDT, [facility] #[id number], 160, cm, 03/22/19 15:22:00 EST, Height Start [...] Myalgia(Confirmed) Active Pre-syncope(Confirmed) Active Orthostatic hypotension(Confirmed) Active *[id number] Care Partn er Tracy Hurst(Confirmed) Active Pain of right sacroiliac joint(Confirmed) Active Lewy body dementia(Confirmed) Active Tinea cruris(Confirmed) Active Unintentional weight loss(Confirmed) Active Urinary incontinence(Confirmed) Active Vitamin D deficiency(Confirmed) Active Social History Social History Type Response Smoking Status Former smoker entered on: 08/26/15 Sex
--- OUTSIDE RECORDS SUMMARY | 2022-10-25 19:59 | XMS_ITS | Continuity of Care Document ---
Author Name Unknown Organization [facility] Address [address] [place] [address]- Care Team Providers Care Conformal Pad Former Name Role Phone Destinee JIMENEZ, Roberta Merida Primary Care Physician Encounter [facility] Date(s): 11/02/19 - 12/02/[address] [address]- [facility] Allergies, Adverse Reactions, Alerts Substance Reaction [...] mL, 11 Refills, Maintenance, 10/03/19 11:19:00 EDT, [facility] #[id number], 1 drops Eyes, Both 3 times a [...] mL, 3 Refills, Maintenance, 10/04/19 11:21:00 EDT, [facility] #[id number], 30, 15 mL By Mouth Daily,PRN: NEEDED FOR CONSTIPATION, 160, cm, 03/22/19 15:22:00 EST, Height Start Date: 10/04/19 Status: Ordered levothyroxine 75 mcg (0.075 mg) oral tablet 1 tablet = 75 mcg, By Mouth, Daily, increase in dose, # 90 tablet, 1 Refills, Maintenance, 11/07/2009:50:00 EDT, Tablet, [facility] #[id number], 160, cm, 03/22/19 15:22:00 EST, Height Start [...] capsule, 1 Refills, Maintenance, 11/23/19 15:26:00 EDT, [facility] #[id number], 160, cm, 03/22/19 15:22:00 EST, Height Start Date: 11/23/19 Status: Ordered warfarin 2.5 mg oral tablet 1 tablet, By Mouth, Daily, DIRECTED BY NURSE BASED ON INR RESULTS., # 30 tablet, 11 Refills, Maintenance, 09/18/19 16:11:00 EDT, [facility] #[id number], 160, cm, 03/22/19 15:22:00 EST, Height Start [...] back pain(Confirmed) Active Hypotension(Confirmed) Active Myalgia(Confirmed) Active *[id number]-[facility] Partn christie- Vimal Mcfarland(Confirmed) Active Pain of right sacroiliac joint(Confirmed) Active Lewy body dementia(Confirmed) Active Tinea cruris(Confirmed) Active Urinary incontinence(Confirmed) Active Vitamin D deficiency(Confirmed) Active Social History Social History Type Response Smoking Status Former smoker entered on: 08/26/15 Sex
--- OUTSIDE RECORDS SUMMARY | 2022-10-25 19:59 | XMS_ITS | Continuity of Care Document ---
Author Name Unknown Organization [facility] Address [address] [place] [address]- Care Team Providers Care Stabilizer Operator Name Role Phone Destinee JIMENEZ, Roberta Merida Primary Care Physician [place] [facility] [place] 06/19/21 - 07/19/[address] [address]- Attending Physician: Hiren Blackburn Admitting Physician: AdmHiren thomas Referring Physician: AdmtrHiren Allergies, Adverse Reactions, Alerts Substance Reaction Severity Status penicillin rash Active Immunizations Given and Recorded Vaccine Date Status Refusal Reason SARS-CoV-2 mRNA ([id number]) vax 06/19/21 Given influenza virus vaccine, inactivated [...] vaccine 4 05/31/12 Given tetanus/diphtheria/pertussis, acel(Tdap) 5 3/20/13 Given 1Result Comment: incorrect brand entered 2Admin Note: VIS dated 09/13/11 3Result Comment: Administered by Dalia Olguin ASSOCIATE SALES REPRESENTATIVE 4Admin Note: VIS dated 12/17/08 5Admin Note: VIS dated 04/03/11 Medications Artificial Tears preserved solution 1 drops, Eyes, Both, 4 times a day, PRN Dry Eyes, # 10 mL, 11 Refills, Maintenance, 11/06/20 13:04:00 EDT, Ophth Solution, [facility] #[id number], Partial fill upon patient request if the [...] ulcer L89.91, 11/20/20 14:01:00 EDT, Dispense brand serafine... Start Date: 11/20/20 Status: Ordered Depakote 250 mg oral enteric coated tablet See Instructions, 1 tablet By Mouth in the AM and 2 tablet at bedtime, # 90 tablet, 5 Refills, Maintenance, 11/20/20 11:43:00 EDT, [facility] #[id number], Please print in saudi arabian, 160, cm, 11/04/20 11:39:00 EDT, Height, 57.86, [...] Gm, 5 Refills, Maintenance, 01/15/21 16:05:00 EDT, [facility] #[id number], Partial fill upon patient request if the prescription is for a schedule II opioid drug., 1 application Topically 2 times a d... Start Date: 01/15/21 Status: Ordered Hospital Bed Mattress Hospital Bed Mattress, See Instructions, # 1 each, Refills 0, Tot. Refills 0, Maintenance, Use on hospital bed to prevent pressure ulcers. Replacement due to worn mattress and skin changes. Z74.01, 01/15/21 16:01:00 EDT, Supply Start Date: 01/15/21 Status: Ordered lactulose 10 gm/15 ml oral syrup 15 mL = 10 Gm, By Mouth, Daily, PRN as needed for constipation, # 450 mL, 2 Refills, Maintenance, 11/06/20 13:03:00 EDT, Syrup, [facility] #[id number], Partial fill upon patient request if the [...] 3 Refills, Maintenance, 02/20/21 12:51:00 EST, Tablet, [facility] #[id number], Partial fill upon patient request if the prescription is for a schedule II opioid drug., 160, cm, 01/15/21 14:... Start Date: 02/20/21 Status: Ordered levothyroxine 75 mcg (0.075 mg) oral tablet 1 tablet = 75 mcg, By Mouth, Daily, TK 1 T PO D, # 90 tablet, 1 Refills, Maintenance, 02/19/21 13:28:00 EST, Tablet, [facility] #[id number], Partial fill upon patient request if the prescriptionis for a schedule II opioid drug., 160, cm, .. Start Date: 02/19/21 Status: Ordered lidocaine 4% mucous membrane solution 1 application, Topically, 2 times a day, PRN Pain , Mild, # 1 each, 0 Refills, Maintenance, 05/22/20 16:43:00 EST, [facility] #[id number], Partial fill upon patient request if the prescription is for a schedule II opioid drug., 1 application Topi... Start Date: 05/22/20 Status: Ordered midodrine 5 mg oral tablet 1, tablet, By Mouth, 3 times a day, # 90 tablet, Refills 3, Tot. Refills 0, Maintenance, 10/22/20 13:38:00 EDT, Route to Pharmacy Electronically, [facility] #[id number], 160, cm, 09/26/20 14:49:00 EDT, Height, 57.86, [...] Mouth, Daily, # 90 capsule, 0 Refills, 05/28/21 14:21:00 EDT, [id number], 160, cm, 01/15/21 14:39:00 EDT, Height, 57.86, kg, 04/12/20 23:44:00 EST, Dry Weight Start Date: 05/28/21 Status: Ordered traZODone 50 mg oral tablet 2, tablet, By Mouth, Daily at bedtime, # 60 tablet, Refills 2, Route to Pharmacy Electronically, [facility] #[id number], 160, cm, 11/04/20 11:39:00 EDT, Height, 57.86, [...] Myalgia(Confirmed) Active Pre-syncope(Confirmed) Active Orthostatic hypotension(Confirmed) Active *[phone] Care Partn er Tracy Hurst(Confirmed) Active Pain of right sacroiliac joint(Confirmed) Active Lewy body dementia(Confirmed) Active Tinea cruris(Confirmed) Active Unintentional weight loss(Confirmed) Active Urinary incontinence(Confirmed) Active Vitamin D deficiency(Confirmed) Active Social History Social History Type Response Smoking Status Former smoker entered on: 08/26/15 Sex
--- OUTSIDE RECORDS SUMMARY | 2022-10-25 19:59 | XMS_ITS | Continuity of Care Document ---
Author Name Unknown Organization [facility] Address [address] [place] [address]- Care Team Providers Care Broom Machine Operator Name Role Phone Roberta Felipe NP Primary Care Physician Encounter [facility] Date(s): 05/15/21 - 06/14/[address] [address] Allergies, Adverse Reactions, Alerts Substance Reaction Severity Status penicillin rash Active Immunizations Given and Recorded Vaccine Date Status Refusal Reason influenza virus vaccine, inactivated 01/15/21 Give n [...] Refills, Maintenance, 11/06/20 13:04:00 EDT, Ophth Solution, [facility] #[id number], Partial fill upon patient request if the [...] tablet, 5 Refills, Maintenance, 11/20/20 11:43:00 EDT, [facility] #[id number], Please print in hebrew, 160, cm, 11/04/20 11:39:00 EDT, Height, 57.86, [...] Gm, 5 Refills, Maintenance, 01/15/21 16:05:00 EDT, [facility] #[id number], Partial fill upon patient request if the [...] 2 Refills, Maintenance, 11/06/20 13:03:00 EDT, Syrup, [facility] #[id number], Partial fill upon patient request if the [...] tablet, 3 Refills, Maintenance, 02/20/21 12:51:00 EST, [facility] #[id number], Partial fill upon patient request if the prescription is for a schedule II opioid drug., 160, cm, 01/15/21 14:... Start Date: 02/20/21 Status: Ordered levothyroxine 75 mcg (0.075 mg) oral tablet 1 tablet = 75 mcg, By Mouth, Daily, TK 1 T PO D, # 90 tablet, 1 Refills, Maintenance, 02/19/21 13:28:00 EST, Tablet, [facility] #[id number], Partial fill upon patient request if the prescriptionis for a schedule II opioid drug., 160, cm, ... Start Date: 02/19/21 Status: Ordered lidocaine 4% mucous membrane solution 1 application, Topically, 2 times a day, PRN Pain , Mild, # 1 each, 0 Refills, Maintenance, 05/22/20 16:43:00 EST, [facility] #[id number], Partial fill upon patient request if the prescription is for a schedule II opioid drug., 1 application Topi... Start Date: 05/22/20 Status: Ordered midodrine 5 mg oral tablet 1, tablet, By Mouth, 3 times a day, # 90 tablet, Refills 3, Tot. Refills 0, Maintenance, 10/22/20 13:38:00 EDT, Route to Pharmacy Electronically, [facility] #[id number], 160, cm, 09/26/20 14:49:00 EDT, Height, 57.86, kg, 04/12/20 23:44:00 EST, . Start Date: 10/22/20 Status: Ordered Nutritional Supplements See Instructions, # 90 each, Refills 11, Tot. Refills 11, Maintenance, 1.5 kcal/ml, 237 ml q 8 hrs by mouth, 02/26/21 17:12:00 EST, Supply Start Date: 02/26/21 Status: Ordered omeprazole 40 mg oral enteric coated capsule 1 capsule, By Mouth, Daily, # 90 capsule, 0 Refills, 05/28/21 14:21:00 EDT, [facility] #[id number], 160, cm, 01/15/21 14:39:00 EDT, Height, 57.86, kg, 04/12/20 23:44:00 EST, Dry Weight Start Date: 05/28/21 Status: Ordered traZODone 50 mg oral tablet 2, tablet, By Mouth, Daily at bedtime, # 60 tablet, Refills 2, Route to Pharmacy Electronically, [facility] #[id number], 160, cm, 11/04/20 11:39:00 EDT, Height, 57.86, [...] Myalgia(Confirmed) Active Pre-syncope(Confirmed) Active Orthostatic hypotension(Confirmed) Active *[id number] Care Partn er Tracy Hurst(Confirmed) Active Pain of right sacroiliac joint(Confirmed) Active Lewy body dementia(Confirmed) Active Tinea cruris(Confirmed) Active Unintentional weight loss(Confirmed) Active Urinary incontinence(Confirmed) Active Vitamin D deficiency(Confirmed) Active Social History Social History Type Response Smoking Status Former smoker entered on: 08/26/15 Sex
--- OUTSIDE RECORDS SUMMARY | 2022-10-25 19:59 | XMS_ITS | Continuity of Care Document ---
Author Name Unknown Organization [facility] Address [address], [address] [place] [address]- Care Team Providers Care Biodiesel Plant Operations Engineer Name Role Phone Destinee JIMENEZ, Roberta Merida Primary Care Physician Encounter [facility] [place] Date(s): 05/07/19 - 06/30/19 [facility] [address], [address], [address] [place] [address] [facility] Attending Physician: Magdalena Hartley MD Admitting Physician: Magdalena Hartley MD Allergies, Adverse Reactions, Alerts Substance Reaction [...] FOR CONSTIPATION, # 480 mL, 3 Refills, Acute 09/28/19 0:01:00EDT, 05/30/19 0:00:00 EDT, [facility] #[id number], 30, 15 mL By Mouth Daily,PRN: NEEDED FOR CONSTIPATION, 160, cm, 03/22/19 15:22:00 EST, Height Start Date: 05/30/19 Stop Date: 09/28/19 Status: Ordered levothyroxine 75 mcg (0.075 mg) [...] capsule 1 capsule, By Mouth, Daily, # 30 capsule, 2 Refills, Maintenance, 05/29/19 17:08:00 EDT, [facility] #[id number], 160, cm, 03/22/19 15:22:00 EST, Height Start Date: 05/29/19 Status: Ordered warfarin 2.5 mg oral tablet 1 tablet, By Mouth, Daily, DIRECTED BY NURSE BASED ON INR RESULTS., # 30 tablet, 11 Refills, Maintenance, 05/22/19 10:41:00 EDT, [facility] #[id number], 160, cm, 03/22/19 15:22:00 EST, Height Start Date: 05/22/19 Status: Ordered Problem List Condition Effective Dates [...] back pain(Confirmed) Active Hypotension(Confirmed) Active Myalgia(Confirmed) Active *[id number]-[facility] Partn christie- Vimal Mcfarland(Confirmed) Active Pain of right sacroiliac joint(Confirmed) Active Lewy body dementia(Confirmed) Active Tinea cruris(Confirmed) Active Vitamin D deficiency(Confirmed) Active Social History Social History Type Response Smoking Status Former smoker entered on: 08/26/15 Sex
--- OUTSIDE RECORDS SUMMARY | 2022-10-25 19:59 | XMS_ITS | Continuity of Care Document ---
Author Name Unknown Organization [facility] Address [address] [place] [address]- Care Team Providers Care Refinery Technician Name Role Phone Destinee JIMENEZ, Roberta Merida Primary Care Physician [phone] Encounter [facility] Date(s): 07/27/21 - 08/26/[address] [address]- Allergies, Adverse Reactions, Alerts Substance Reaction Severity Status penicillin rash Active Immunizations Given and Recorded Vaccine Date Status Refusal Reason SARS-CoV-2 mRNA ([id number]) vax 06/19/21 Given influenza virus vaccine, inactivated [...] Refills, Maintenance, 11/06/20 13:04:00 EDT, Ophth Solution, [facility] #[id number], Partial fill upon patient request if the [...] tablet, 5 Refills, Maintenance, 11/20/20 11:43:00 EDT, [facility] #[id number], Please print in senegalese, 160, cm, 11/04/20 11:39:00 EDT, Height, 57.86, [...] Gm, 5 Refills, Maintenance, 01/15/21 16:05:00 EDT, [facility] #[id number], Partial fill upon patient request if the [...] 2 Refills, Maintenance, 08/17/21 13:14:00 EDT, Syrup, [facility] #[id number], 15 mL By Mouth Daily,PRN:as needed for [...] 3 Refills, Maintenance, 02/20/21 12:51:00 EST, Tablet, [facility] #[id number], Partial fill upon patient request if the prescription is for a schedule II opioid drug., 160, cm, 01/15/21 14:... Start Date: 02/20/21 Status: Ordered levothyroxine 75 mcg (0.075 mg) oral tablet 1 tablet = 75 mcg, By Mouth, Daily, TK 1 T PO D, # 90 tablet, 1 Refills, Maintenance, 02/19/21 13:28:00 EST, Tablet, [facility] #[id number], Partial fill upon patient request if the prescriptionis for a schedule II opioid drug., 160, cm, ... Start Date: 02/19/21 Status: Ordered lidocaine 4% mucous membrane solution 1 application, Topically, 2 times a day, PRN Pain , Mild, # 1 each, 0 Refills, Maintenance, 05/22/20 16:43:00 EST, [facility] #[id number], Partial fill upon patient request if the prescription is for a schedule II opioid drug., 1 application Topi... Start Date: 05/22/20 Status: Ordered midodrine 5 mg oral tablet 1, tablet, By Mouth, 3 times a day, # 90 tablet, Refills 3, Tot. Refills 0, Maintenance, 10/22/20 13:38:00 EDT, Route to Pharmacy Electronically, [facility] #[id number], 160, cm, 09/26/20 14:49:00 EDT, Height, 57.86, kg, 04/12/20 23:44:00 EST, Start Date: 10/22/20 Status: Ordered Nutritional Supplements See Instructions, # 90 each, Refills 11, Tot. Refills 11, Maintenance, 1.5 kcal/ml, 237 ml q 8 hrs by mouth, 02/26/21 17:12:00 EST, Supply Start Date: 02/26/21 Status: Ordered omeprazole 40 mg oral enteric coated capsule 1 capsule, By Mouth, Daily, # 90 capsule, 0 Refills, 05/28/21 14:21:00 EDT, [facility] #[id number], 160, cm, 01/15/21 14:39:00 EDT, Height, 57.86, kg, 04/12/20 23:44:00 EST, Dry Weight Start Date: 05/28/21 Status: Ordered traZODone 50 mg oral tablet 2, tablet, By Mouth, Daily at bedtime, # 60 tablet, Refills 2, Route to Pharmacy Electronically, [facility] #[id number], 160, cm, 11/04/20 11:39:00 EDT, Height, 57.86, [...] Myalgia(Confirmed) Active Pre-syncope(Confirmed) Active Orthostatic hypotension(Confirmed) Active *[id number] Care Partn er Tracy [place](Confirmed) Active Pain of right sacroiliac joint(Confirmed) Active Lewy body dementia(Confirmed) Active Tinea cruris(Confirmed) Active Unintentional weight loss(Confirmed) Active Urinary incontinence(Confirmed) Active Vitamin D deficiency(Confirmed) Active Social History Social History Type Response Smoking Status Former smoker entered on: 08/26/15 Sex
--- OUTSIDE RECORDS SUMMARY | 2022-10-25 19:59 | XMS_ITS | Continuity of Care Document ---
Author Name Unknown Organization [facility] Address [address] [place] [address]- Care Team Providers Care Station Gateman Name Role Phone Destinee JIMENEZ, Roberta Merida Primary Care Physician [phone] Encounter [facility] Date(s): 08/23/22 - 09/22/[address] [address]- Allergies, Adverse Reactions, Alerts Substance Reaction Severity Status penicillin rash Active Immunizations Given and Recorded Vaccine Date Status Refusal Reason [id number] 12y+ bivalent booster vax 03/05/22 Given influenza [...] inactivated 2 05/31/12 [facility] SARS-CoV-2 mRNA ([id number]-[id number]) vax 06/19/21 Given SARS-CoV-2 (COVID-19) mRNA BNT-162b2 vac 05/17/20 Given SARS-CoV-2 (COVID-19) mRNA BNT-162b2 vac 3 04/26/20 Given pneumococcal 13-valent vaccine 08/31/16 Given pneumococcal 23-valent vaccine 4 05/31/12 Given tetanus/diphtheria/pertussis, acel(Tdap) 5 05/31/12 Given 1Result Comment: incorrect brand entered 2Admin Note: VIS dated 09/13/11 3Result Comment: Administered by Dalia Olguin PLOW MECHANIC 4Admin Note: VIS dated 12/17/08 5Admin Note: VIS dated 04/03/11 Medications Artificial Tears preserved solution 1 drops, Eyes, Both, 4 times a day, PRN Dry Eyes, # 10 mL, 11 Refills, Maintenance, 01/26/22 14:13:00 EST, Ophth Solution, [facility] #[id number], Partial fill upon patient request if the [...] bedtime, # 90 tablet, 5 Refills, Maintenance, 08/26/22 16:55:00 EDT, [facility] #[id number], Please print in maltese, 160, cm, 06/18/22 14:50:00 EDT, Height Start Date: 6/15/23 Status: Ordered Diapers See Instructions, # 240 each, Refills 11, Tot. Refills 11, Maintenance, Size Large. Use up to 8 daily for urinary incontinence R32, 05/22/20 17:15:00 EST, Supply Start Date: 05/22/20 Status: Ordered diphenhydrAMINE 2% topical cream 1 application, Topically, 3 times a day, PRN for itching, # 60 Gm, 1 Refills, Maintenance, 06/18/2314:05:00 EDT, Cream, [facility] #[id number], Partial fill upon patient request if the prescription is for a schedule II opioid drug., 1 applicatio... Start Date: 06/18/22 Status: Ordered docusate sodium 100 mg oral capsule 100 mg, 1, capsule, By Mouth, 2 times a day, PRN, # 60 capsule, Refills 3, Tot. Refills 3, Maintenance, for constipation, 01/26/22 14:13:00 EST, Route to Pharmacy Electronically, [facility]#[id number], Partial fill upon patient request if the pr... Start Date: 01/26/22 Status: Ordered Eucerin Eczema Relief topical cream 1 application, Topically, 2 times a day, # 240 Gm, 5 Refills, Maintenance, 01/15/21 16:05:00 EDT, [facility] #[id number], Partial fill upon patient request if the prescription is for a schedule II opioid drug., 1 application Topically 2 times a d... Start Date: 01/15/21 Status: Ordered guaiFENesin 400 mg oral tablet 1 tablet = 400 mg, By Mouth, Every 4 hours, PRN as needed for congestion and cough, # 30 tablet, 1 Refills, Maintenance, 08/27/21 13:40:00 EDT, Tablet, [facility] #[id number], Partial fill upon patient request if the [...] 2 Refills, Maintenance, 08/17/21 13:14:00 EDT, Syrup, [facility] #[id number], 15 mL By Mouth Daily,PRN:as needed for [...] day, # 60 tablet, 5 Refills, Maintenance, 08/26/22 16:54:00 EDT, [facility][id number], Partial fill upon patient request if the prescription is for a schedule II opioid drug., 160, cm, 06/18/22 14:... Start Date: 08/26/22 Status: Ordered levothyroxine 75 mcg (0.075 mg) oral tablet 1 tablet = 75 mcg, By Mouth, Daily, TK 1 T PO D, # 90 tablet, 1 Refills, Maintenance, 04/21/22 9:43:00 EST, [facility][id number], Partial fill upon patient request if the prescription is for a schedule II opioid drug., 160, cm, ... Start Date: 04/21/22 Status: Ordered lidocaine 4% mucous membrane solution 1 application, Topically, 2 times a day, PRN Pain , Mild, # 1 each, 0 Refills, Maintenance, 05/22/20 16:43:00 EST, [facility] #[id number], Partial fill upon patient request if the prescription is for a schedule II opioid drug., 1 application Topi... Start Date: 05/22/20 Status: Ordered midodrine 5 mg oral tablet 1, tablet, By Mouth, 3 times a day, # 90 tablet, Refills 3, Tot. Refills 3, Maintenance, 10/27/21 15:24:00 EDT, Route to Pharmacy Electronically, [facility] #[id number], 160, cm, 08/27/21 13:11:00 EDT, Height, 57.86, kg, 04/12/20 23:44:00 EST, Start Date: 10/27/21 Status: Ordered Nutritional Supplements See Instructions, # 90 each, Refills 11, Tot. 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 [id number], G31.83, 07/09/22 17:02:00 EDT, Supply Start Date: 07/09/22 Status: Ordered omeprazole 40 mg oral enteric coated capsule 1 capsule, By Mouth, Daily, # 90 capsule, 1 Refills, 09/15/22 16:21:00 EDT, [facility] #[id number], 160, cm, 06/18/22 14:50:00 EDT, Height Start Date: 09/15/22 Status: Ordered oral care swabs oral care [...] 05/03/22 11:14:00 EST, Route to Pharmacy Electronically, [facility] #[id number], 160, cm, 04/19/22 17:27:00 EST, Height Start Date: 05/03/22 Status: Ordered Urinal See Instructions, # 3 each, Refills 0, Tot. Refills 0, Maintenance, Use as needed for urinating. 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 Z74.01, G31.83, 05/22/20 17:15:00 EST, Supply Start Date: 05/22/20 Status: Ordered Washable Vault Cashier Bed Pads Washable Vault Cashier Bed Pads, See Instructions, # 4 each, [...] Pre-syncope Confirmed Active Orthostatic hypotension Confirmed Active *[id number] Filter Bed Placer Yi Campos Confirmed Active Pain of right sacroiliac joint Confirmed Active Seizures Confirmed Active Lewy body dementia Confirmed Active Tinea cruris Confirmed Active Unintentional weight loss Confirmed Active Urinary incontinence Confirmed Active Vitamin D deficiency Confirmed Active Social History Social History Type Response Smoking Status Former smoker entered on: 08/26/15 Sex Patient Care team information Care Team Personnel Name: Matilde Mahmood RN Position: [facility] RN Member Role: Primary Care Nurse Name: Roberta Felipe NP Position: [facility] PCO Associate Professional Member Role: PCP Address: Address: [address] [place] [address]- Name: Maci Kruse RN Position: [facility] SN RN Member Role: Primary Care Nurse Name: Lyudmila Ortez RN Position: [facility] RN Member Role: Primary Care Nurse Name: Lilo Maldonado RN Position: [facility] RN Member Role: Primary Care Nurse Name: Anuj Murillo RN Position: [facility] RN Member Role: Primary Care Nurse Name: Jasmin Oliva Position: [facility] Outreach Member Role: Lifetime Consulting Physician Name: Suzanne Celeste RN Position: [facility] RN Member Role: Primary Care Nurse Name: Lily Solis RN Position: [facility] Onco RN Member Role: Primary Care Nurse Name: Adela Tadeo RN Position: [facility] RN Member Role: Primary Care Nurse Name: Nancy Morrow RN Position: [facility] RN Member Role: Primary Care Nurse Name: Etta Dewitt RN Position: [facility] RN Member Role: Primary Care Nurse Care Team Related Persons Name: JESSIKA HEARD Address: home [address] [address] Name: JESSICA JOSUE Address: [address] [place] [address] Name: CARLOS CEJA Address: home [address] [address]
--- OUTSIDE RECORDS SUMMARY | 2022-10-25 19:59 | XMS_ITS | Continuity of Care Document ---
Author Name Unknown Organization [facility] Address [address] [place] [address]- Care Team Providers Care Skin Tanner Name Role Phone Destinee JIMENEZ, Roberta Merida Primary Care Physician Encounter [facility] Date(s): 09/25/20 - 10/25/[address] [address]- Allergies, Adverse Reactions, Alerts Substance Reaction Severity [...] 11 Refills, Maintenance, 06/24/20 14:40:00 EDT, Tablet, [facility] #[id number], Partial fill upon patient request if the [...] 2 Refills, Maintenance, 09/29/20 16:10:00 EDT, Tablet, [facility] #[id number], Partial fill upon patient request ifthe prescription is for a schedule II opioid drug.,... Start Date: 09/29/20 Status: Ordered levothyroxine 75 mcg (0.075 mg) oral tablet 1 tablet = 75 mcg, By Mouth, Daily, TK 1 T PO D, # 90 tablet, 1 Refills, Maintenance, 09/16/20 14:56:00 EDT, Tablet, [facility] #[id number], Partial fill upon patient request if the prescriptionis for a schedule II opioid drug., 160, cm, ... Start Date: 09/16/20 Stop Date: 01/14/21 Status: Ordered lidocaine 4% mucous membrane solution 1 application, Topically, 2 times a day, PRN Pain , Mild, # 1 each, 0 Refills, Maintenance, 05/22/20 16:43:00 EST, [facility] #[id number], Partial fill upon patient request if the prescription is for a schedule II opioid drug., 1 application Topi... Start Date: 05/22/20 Status: Ordered midodrine 5 mg oral tablet 1, tablet, By Mouth, 3 times a day, # 90 tablet, Refills 3, Tot. Refills 0, Maintenance, 10/22/20 13:38:00 EDT, Route to Pharmacy Electronically, [facility] #[id number], 160, cm, 09/26/20 14:49:00 EDT, Height, 57.86, kg, 04/12/20 23:44:00 EST, [facility] Start Date: 10/22/20 Status: Ordered Nutritional Supplements See Instructions, # 90 each, Refills 11, Tot. Refills 11, Maintenance, 1.5 kcal/ml, 237 ml q 8 hrs by mouth, 09/09/20 16:57:00 EDT, Supply Start Date: 09/09/20 Status: Ordered omeprazole 40 mg oral enteric coated capsule 1 capsule, By Mouth, Daily, # 90 capsule, 0 Refills, Maintenance, 09/10/20 8:11:00 EDT, [facility] #[id number], 160, cm, 08/21/20 12:36:00 EDT, Height, 57.86, kg, 04/12/20 23:44:00 EST, Dry Weight Start Date: 09/10/20 Status: Ordered traZODone 50 mg oral tablet 2, tablet, By Mouth, Daily at bedtime, # 60 tablet, Refills 3, Tot. Refills 0, Maintenance, 07/15/20 10:03:00 EDT, [id number], 160, cm, 05/21/20 9:12:00 EST, Height, 57.86, [...] Myalgia(Confirmed) Active Pre-syncope(Confirmed) Active Orthostatic hypotension(Confirmed) Active *[id number] Care Partn er Tracy [place](Confirmed) Active Pain of right sacroiliac joint(Confirmed) Active Lewy body dementia(Confirmed) Active Tinea cruris(Confirmed) Active Unintentional weight loss(Confirmed) Active Urinary incontinence(Confirmed) Active Vitamin D deficiency(Confirmed) Active Social History Social History Type Response Smoking Status Former smoker entered on: 08/26/15 Sex
--- OUTSIDE RECORDS SUMMARY | 2022-10-25 19:59 | XMS_ITS | Continuity of Care Document ---
Author Name Unknown Organization [facility] Address [address] [place] [address]- Care Team Providers Care Neurology Physician Assistant Name Role Phone Destinee JIMENEZ, Roberta Merida Primary Care Physician [phone] Encounter [facility] R [id number] Date(s): 10/30/20 - 11/29/20 [facility] [address] [place] [address]- Attending Physician: Hiren Blackburn Admitting Physician: AdmtrHiren Referring Physician: Admtr, [id number] [...] Refills, Maintenance, 11/06/20 13:04:00 EDT, Ophth Solution, [facility] #[id number], Partial fill upon patient request if the [...] tablet, 5 Refills, Maintenance, 11/20/20 11:43:00 EDT, [facility] #[id number], Please print in wolof, 160, cm, 11/04/20 11:39:00 EDT, Height, 57.86, [...] 2 Refills, Maintenance, 11/06/20 13:03:00 EDT, Syrup, [facility] #[id number], Partial fill upon patient request if the [...] 6 Refills, Maintenance, 11/20/20 11:42:00 EDT, Tablet, [facility] #00389, Partial fill upon patient request if the prescription is for a schedule II opioid drug., 160, cm, 11/04/20 11:... Start Date: 11/20/20 Stop Date: 06/18/21 Status: Ordered levothyroxine 75 mcg (0.075 mg) oral tablet 1 tablet = 75 mcg, By Mouth, Daily, TK 1 T PO D, # 90 tablet, 1 Refills, Maintenance, 09/16/20 14:56:00 EDT, Tablet, [facility] #52127, Partial fill upon patient request if the prescriptionis for a schedule II opioid drug., 160, cm, ... Start Date: 09/16/20 Stop Date: 01/14/21 Status: Ordered lidocaine 4% mucous membrane solution 1 application, Topically, 2 times a day, PRN Pain , Mild, # 1 each, 0 Refills, Maintenance, 05/22/20 16:43:00 EST, [facility] #[id number], Partial fill upon patient request if the prescription is for a schedule II opioid drug., 1 application Topi... Start Date: 05/22/20 Status: Ordered midodrine 5 mg oral tablet 1, tablet, By Mouth, 3 times a day, # 90 tablet, Refills 3, Tot. Refills 0, Maintenance, 10/22/20 13:38:00 EDT, Route to Pharmacy Electronically, [facility] #[id number], 160, cm, 09/26/20 14:49:00 EDT, Height, 57.86, [...] Mouth, Daily, # 90 capsule, 0 Refills, [facility] #[id number], 160, cm, 11/04/2110:39:00 EDT, Height, 57.86, kg, 04/12/20 23:44:00 EST, Dry Weight Start Date: 11/27/20 Status: Ordered traZODone 50 mg oral tablet 2, tablet, By Mouth, Daily at bedtime, # 60 tablet, Refills 2, Route to Pharmacy Electronically, [facility] #[id number], 160, cm, 11/04/20 11:39:00 EDT, Height, 57.86, [...] Myalgia(Confirmed) Active Pre-syncope(Confirmed) Active Orthostatic hypotension(Confirmed) Active *[id number] Care Partn christie Husrt(Confirmed) Active Pain of right sacroiliac joint(Confirmed) Active Lewy body dementia(Confirmed) Active Tinea cruris(Confirmed) Active Unintentional weight loss(Confirmed) Active Urinary incontinence(Confirmed) Active Vitamin D deficiency(Confirmed) Active Vital Signs Most recent to oldest [Reference Range]: 1 Height 162.56 cm (12/05/13 1:07 PM) Weight 63.3 kg (12/05/13 1:07 PM) Pulse Rate [55-90 bpm] 80 bpm (12/05/13 1:07 PM) Body Mass Index [18.50-24.99] 23.95 (12/05/13 1:07 PM) Blood Pressure [90-138/55-84 mm Hg] 103/ 65mm Hg (12/05/13 1:07 PM) Respiratory Rate [16-30 br/min] 22 br/mi n (12/05/13 1:07 PM) Temperature [96.8-100.4 DegF] 99.0 DegF (12/05/13 1:07 PM) Blood pressure sites Arm, right (12/05/13 1:07 PM) Temperature Route Temporal (12/05/13 1:07 PM) Social History Social History Type Response Smoking Status Former smoker entered on: 08/26/15 Sex
--- OUTSIDE RECORDS SUMMARY | 2022-10-25 19:59 | XMS_ITS | Continuity of Care Document ---
Author Name Unknown Organization [facility] Address [address] [place] [address]- Care Team Providers Care Bag Bleacher Name Role Phone Destinee JIMENEZ, Roberta Merida Primary Care Physician [place] [facility] [place] - 08/02/[address] [address]- Attending Physician: David Daniels MD Admitting Physician: David Daniels MD Allergies, Adverse Reactions, Alerts Substance Reaction [...] 11 Refills, Maintenance, 06/24/20 14:40:00 EDT, Tablet, [facility] #[id number], Partial fill upon patient request if the [...] 3 Refills, Maintenance, 05/19/20 14:56:00 EST, Tablet, [facility] #[id number], Partial fill upon patient request if the prescriptionis for a schedule II opioid drug., 160, cm, ... Start Date: 05/19/20 Stop Date: 09/16/20 Status: Ordered lidocaine 4% mucous membrane solution 1 application, Topically, 2 times a day, PRN Pain , Mild, # 1 each, 0 Refills, Maintenance, 05/22/20 16:43:00 EST, [facility] #[id number], Partial fill upon patient request if the prescription is for a schedule II opioid drug., 1 application Topi... Start Date: 05/22/20 Status: Ordered midodrine 5 mg oral tablet 5 mg, 1, tablet, By Mouth, 3 times a day, lower dose tablet, # 90 tablet, Refills 3, Tot. Refills 3, Maintenance, 06/23/20 14:16:00 EDT, Route to Pharmacy Electronically, [facility] #[id number],Partial fill upon patient request if the prescripti... [...] capsule, 0 Refills, Maintenance, 06/23/20 8:58:00 EDT, [facility] #[id number], 160, cm, 05/21/20 9:12:00 EST, Height, 57.86, kg, 04/12/20 23:44:00 EST, Dry Weight Start Date: 06/23/20 Status: Ordered traZODone 50 mg oral tablet 2, tablet, By Mouth, Daily at bedtime, # 60 tablet, Refills 3, Tot. Refills 0, Maintenance, 07/15/20 10:03:00 EDT, Route to Pharmacy Electronically, [facility] #[id number], 160, cm, 05/21/20 9:12:00 EST, Height, 57.86, [...] Myalgia(Confirmed) Active Pre-syncope(Confirmed) Active Orthostatic hypotension(Confirmed) Active *[id number] Care Partn er Tracy Hurst(Confirmed) Active Pain of right sacroiliac joint(Confirmed) Active Lewy body dementia(Confirmed) Active Tinea cruris(Confirmed) Active Unintentional weight loss(Confirmed) Active Urinary incontinence(Confirmed) Active Vitamin D deficiency(Confirmed) Active Social History Social History Type Response Smoking Status Former smoker entered on: 08/26/15 Sex
--- OUTSIDE RECORDS SUMMARY | 2022-10-25 19:59 | XMS_ITS | Continuity of Care Document ---
Author Name Unknown Organization [facility] Address [address] [place] [address]- Care Team Providers Care Certified Tumor Registrar Name Role Phone Destinee JIMENEZ, Roberta Merida Primary Care Physician [facility]counter [facility] Date(s): 04/08/20 - 05/08/[address] [address]- Allergies, Adverse Reactions, Alerts Substance Reaction Severity Status penicillin rash Active Immunizations Given and Recorded Vaccine Date Status Refusal Reason SARS-CoV-2 (COVID-19) mRNA BNT-162b2 vac 1 04/26/20 [...] capsule, 0 Refills, Maintenance, 04/16/20 14:22:00 EST, [facility] #[id number], 160, cm, 04/16/20 8:39:00 EST, Height, 57.86, kg, 04/12/20 23:44:00 EST, Dry Weight Start Date: 04/16/20 Status: Ordered traZODone 50 mg oral tablet TAKE 2 TABLETS BY MOUTH DAILY AT BEDTIME Start Date: 04/12/20 Status: Ordered warfarin 3 mg oral tablet 1 tablet = 3 mg, By Mouth, Daily, # 30 tablet, 0 Refills, Maintenance, 04/16/20 12:40:00 EST, Tablet, [facility] #[id number], Partial fill upon patient request if the [...] Myalgia(Confirmed) Active Pre-syncope(Confirmed) Active Orthostatic hypotension(Confirmed) Active *[id number] Care Partn er Tracy Natali(Confirmed) Active Pain of right sacroiliac joint(Confirmed) Active Lewy body dementia(Confirmed) Active Tinea cruris(Confirmed) Active Unintentional weight loss(Confirmed) Active Urinary incontinence(Confirmed) Active Vitamin D deficiency(Confirmed) Active Social History Social History Type Response Smoking Status Former smoker entered on: 08/26/15 Sex
--- OUTSIDE RECORDS SUMMARY | 2022-10-25 19:59 | XMS_ITS | Continuity of Care Document ---
Author Name Unknown Organization [facility] Address [address] [place] [address]- Care Team Providers Care Mortgage Loan Processing Clerk Name Role Phone Destinee JIMENEZ, Roberta Merida Primary Care Physician [phone] Encounter [facility] Date(s): 11/02/19 - 12/02/[address] [address]- [facility] Allergies, Adverse Reactions, Alerts Substance Reaction [...] mL, 11 Refills, Maintenance, 10/03/19 11:19:00 EDT, [facility] #[id number], 1 drops Eyes, Both 3 times a [...] mL, 3 Refills, Maintenance, 10/04/19 11:21:00 EDT, [facility] #[id number], 30, 15 mL By Mouth Daily,PRN: NEEDED FOR CONSTIPATION, 160, cm, 03/22/19 15:22:00 EST, Height Start Date: 10/04/19 Status: Ordered levothyroxine 75 mcg (0.075 mg) oral tablet 1 tablet = 75 mcg, By Mouth, Daily, increase in dose, # 90 tablet, 1 Refills, Maintenance, 11/07/2009:50:00 EDT, Tablet, [facility] #[id number], 160, cm, 03/22/19 15:22:00 EST, Height Start [...] capsule, 1 Refills, Maintenance, 11/23/19 15:26:00 EDT, [facility] #[id number], 160, cm, 03/22/19 15:22:00 EST, Height Start Date: 11/23/19 Status: Ordered warfarin 2.5 mg oral tablet 1 tablet, By Mouth, Daily, DIRECTED BY NURSE BASED ON INR RESULTS., # 30 tablet, 11 Refills, Maintenance, 09/18/19 16:11:00 EDT, [facility] #43885, 160, cm, 03/22/19 15:22:00 EST, Height Start [...] back pain(Confirmed) Active Hypotension(Confirmed) Active Myalgia(Confirmed) Active *[id number]-[facility] christie- Vimal Mcfarland(Confirmed) Active Pain of right sacroiliac joint(Confirmed) Active Lewy body dementia(Confirmed) Active Tinea cruris(Confirmed) Active Urinary incontinence(Confirmed) Active Vitamin D deficiency(Confirmed) Active Social History Social History Type Response Smoking Status Former smoker entered on: 08/26/15 Sex
--- OUTSIDE RECORDS SUMMARY | 2022-10-25 19:59 | XMS_ITS | Continuity of Care Document ---
Author Name Unknown Organization [facility] Address [address] [place] [address]- Care Team Providers Care Drying Supervisor Name Role Phone Roberta Feliep NP Primary Care Physician Encounter [facility] Date(s): 07/29/20 - 08/28/[address] [address]- Allergies, Adverse Reactions, Alerts Substance Reaction Severity [...] Given 1Result Comment: Administered by Dalia Olguin EMERGENCY OPERATOR 2Result Comment: incorrect brand entered 3Admin Note: VIS dated 09/13/11 4Admin Note: VIS dated 12/17/08 5Admin Note: VIS dated 04/03/11 Medications apixaban 2.5 mg oral tablet 1 tablet = 2.5 mg, By Mouth, 2 times a day, Transitioning from warfarin to apixaban, # 60 tablet, 11 Refills, Maintenance, 06/24/20 14:40:00 EDT, Tablet, [facility] #[id number], Partial fill upon patient request if the [...] 2 Refills, Maintenance, 08/08/20 16:52:00 EDT, Tablet, [facility] #[id number], Partial fill upon patient request if the [...] 09/16/20 14:56:00 EDT, 05/19/20 14:56:00 EST, Tablet, [facility] #87705, Partial fill upon patient request if the prescription is for a schedule... Start Date: 05/19/20 Stop Date: 09/16/20 Status: Ordered levothyroxine 75 mcg (0.075 mg) oral tablet 1 tablet = 75 mcg, By Mouth, Daily, TK 1 T PO D, # 90 tablet, 1 Refills, Maintenance, 09/16/20 14:56:00 EDT, Tablet, [facility] #76069, Partial fill upon patient request if the prescriptionis for a schedule II opioid drug., 160, cm, ... Start Date: 09/16/20 Stop Date: 01/14/21 Status: Ordered lidocaine 4% mucous membrane solution 1 application, Topically, 2 times a day, PRN Pain , Mild, # 1 each, 0 Refills, Maintenance, 05/22/20 16:43:00 EST, [facility] #98921, Partial fill upon patient request if the prescription is for a schedule II opioid drug., 1 application Topi... Start Date: 05/22/20 Status: Ordered midodrine 5 mg oral tablet 5 mg, 1, tablet, By Mouth, 3 times a day, lower dose tablet, # 90 tablet, Refills 3, Tot. Refills 3, Maintenance, 06/23/20 14:16:00 EDT, Route to Pharmacy Electronically, [facility] #36774,Partial fill upon patient request if the prescripti... [...] capsule, 0 Refills, Maintenance, 06/23/20 8:58:00 EDT, [facility] #12086, 160, cm, 05/21/20 9:12:00 EST, Height, 57.86, kg, 04/12/20 23:44:00 EST, Dry Weight Start Date: 06/23/20 Status: Ordered traZODone 50 mg oral tablet 2, tablet, By Mouth, Daily at bedtime, # 60 tablet, Refills 3, Tot. Refills 0, Maintenance, 07/15/20 10:03:00 EDT, Route to Pharmacy Electronically, [facility] #[id number], 160, cm, 05/21/20 9:12:00 EST, Height, 57.86, [...] Myalgia(Confirmed) Active Pre-syncope(Confirmed) Active Orthostatic hypotension(Confirmed) Active *[id number] Care Partn er Tracy Hurst(Confirmed) Active Pain of right sacroiliac joint(Confirmed) Active Lewy body dementia(Confirmed) Active Tinea cruris(Confirmed) Active Unintentional weight loss(Confirmed) Active Urinary incontinence(Confirmed) Active Vitamin D deficiency(Confirmed) Active Social History Social History Type Response Smoking Status Former smoker entered on: 08/26/15 Sex
--- OUTSIDE RECORDS SUMMARY | 2022-10-25 19:59 | XMS_ITS | Continuity of Care Document ---
Author Name Unknown Organization [facility] Address [address] [place] [address]- Care Team Providers Care Union Steward Name Role Phone Destinee JIMENEZ, Roberta Merida Primary Care Physician [facility]counter [facility] Date(s): 12/17/19 - 01/16/[address] [address]- [facility] Allergies, Adverse Reactions, Alerts Substance [...] mL, 11 Refills, Maintenance, 10/03/19 11:19:00 EDT, [facility] #[id number], 1 drops Eyes, Both 3 times a [...] mL, 3 Refills, Maintenance, 10/04/19 11:21:00 EDT, [facility] #12589, 30, 15 mL By Mouth Daily,PRN: NEEDED FOR CONSTIPATION, 160, cm, 03/22/19 15:22:00 EST, Height Start Date: 10/04/19 Status: Ordered levothyroxine 75 mcg (0.075 mg) oral tablet 1 tablet = 75 mcg, By Mouth, Daily, increase in dose, # 90 tablet, 1 Refills, Maintenance, 11/07/2009:50:00 EDT, Tablet, [facility] #47556, 160, cm, 03/22/19 15:22:00 EST, Height Start [...] 15:33:00EST, Tablet Start Date: 03/22/19 Status: Ordered mirtazapine 7.5 mg oral tablet 1 tablet = 7.5 mg, By Mouth, Daily at bedtime, # 30 tablet, 11 Refills, Maintenance, 12/25/19 10:20:00 EDT, Tablet, [facility] #02182, 160, cm, 12/11/19 13:11:00 EDT, Height Start Date: 12/25/19 Status: Ordered omeprazole 40 mg oral enteric coated capsule 1 capsule, By Mouth, Daily, # 90 capsule, 1 Refills, Maintenance, 11/23/19 15:26:00 EDT, [facility] #43787, 160, cm, 03/22/19 15:22:00 EST, Height Start Date: 11/23/19 Status: Ordered warfarin 2.5 mg oral tablet 1 tablet, By Mouth, Daily, DIRECTED BY NURSE BASED ON INR RESULTS., # 30 tablet, 11 Refills, Maintenance, 09/18/19 16:11:00 EDT, [facility] #30267, 160, cm, 03/22/19 15:22:00 EST, Height Start [...] Active Hypotension(Confirmed) Active Myalgia(Confirmed) Active Pre-syncope(Confirmed) Active *[id number]-[facility] Kvngpippa Mcfarland(Confirmed) Active Pain of right sacroiliac joint(Confirmed) Active Lewy body dementia(Confirmed) Active Tinea cruris(Confirmed) Active Unintentional weight loss(Confirmed) Active Urinary incontinence(Confirmed) Active Vitamin D deficiency(Confirmed) Active Social History Social History Type Response Smoking Status Former smoker entered on: 08/26/15 Sex
--- OUTSIDE RECORDS SUMMARY | 2022-10-25 19:59 | XMS_ITS | Continuity of Care Document ---
Author Name Unknown Organization [facility] Address [address] [place] [address]- Care Team Providers Care Guest Relations Executive Name Role Phone Roberta Felipe NP Primary Care Physician [facility] Date(s): 10/23/20 - 11/22/[address] [address] Allergies, Adverse Reactions, Alerts Substance Reaction [...] Refills, Maintenance, 11/06/20 13:04:00 EDT, Ophth Solution, [facility] #28074, Partial fill upon patient request if the [...] tablet, 5 Refills, Maintenance, 11/20/20 11:43:00 EDT, [facility] #77853, Please print in lithuanian, 160, cm, 11/04/20 11:39:00 EDT, Height, 57.86, [...] 2 Refills, Maintenance, 11/06/20 13:03:00 EDT, Syrup, [facility] #64656, Partial fill upon patient request if the [...] 6 Refills, Maintenance, 11/20/20 11:42:00 EDT, Tablet, [facility] #41070, Partial fill upon patient request if the prescription is for a schedule II opioid drug., 160, cm, 11/04/20 11:... Start Date: 11/20/20 Stop Date: 06/18/21 Status: Ordered levothyroxine 75 mcg (0.075 mg) oral tablet 1 tablet = 75 mcg, By Mouth, Daily, TK 1 T PO D, # 90 tablet, 1 Refills, Maintenance, 09/16/20 14:56:00 EDT, Tablet, [facility] #58265, Partial fill upon patient request if the prescriptionis for a schedule II opioid drug., 160, cm, ... Start Date: 09/16/20 Stop Date: 01/14/21 Status: Ordered lidocaine 4% mucous membrane solution 1 application, Topically, 2 times a day, PRN Pain , Mild, # 1 each, 0 Refills, Maintenance, 05/22/20 16:43:00 EST, [facility] #07959, Partial fill upon patient request if the prescription is for a schedule II opioid drug., 1 application Topi... Start Date: 05/22/20 Status: Ordered midodrine 5 mg oral tablet 1, tablet, By Mouth, 3 times a day, # 90 tablet, Refills 3, Tot. Refills 0, Maintenance, 10/22/20 13:38:00 EDT, Route to Pharmacy Electronically, [facility] #[id number], 160, cm, 09/26/20 14:49:00 EDT, Height, 57.86, [...] capsule, 0 Refills, Maintenance, 09/10/20 8:11:00 EDT, [facility] #62058, 160, cm, 08/21/20 12:36:00 EDT, Height, 57.86, kg, 04/12/20 23:44:00 EST, Dry Weight Start Date: 09/10/20 Status: Ordered traZODone 50 mg oral tablet 2, tablet, By Mouth, Daily at bedtime, # 60 tablet, Refills 2, Route to Pharmacy Electronically, [facility] #67265, 160, cm, 11/04/20 11:39:00 EDT, Height, 57.86, [...] Myalgia(Confirmed) Active Pre-syncope(Confirmed) Active Orthostatic hypotension(Confirmed) Active *[phone] Care Partn er Tracy Natali(Confirmed) Active Pain of right sacroiliac joint(Confirmed) Active Lewy body dementia(Confirmed) Active Tinea cruris(Confirmed) Active Unintentional weight loss(Confirmed) Active Urinary incontinence(Confirmed) Active Vitamin D deficiency(Confirmed) Active Social History Social History Type Response Smoking Status Former smoker entered on: 08/26/15 Sex
--- OUTSIDE RECORDS SUMMARY | 2022-10-25 20:00 | XMS_ITS | Continuity of Care Document ---
Author Name Unknown Organization [facility] Address [address] [place] [address]- Care Team Providers Care Pharmacognosy Teacher Name Role Phone Destinee JIMENEZ, Roberta Merida Primary Care Physician [facility] Date(s): 02/11/20 - 03/12/[address] [address]- Allergies, Adverse Reactions, Alerts Substance Reaction Severity [...] mL, 11 Refills, Maintenance, 10/03/19 11:19:00 EDT, [facility] #[id number], 1 drops Eyes, Both 3 times a [...] mL, 3 Refills, Maintenance, 10/04/19 11:21:00 EDT, [facility] #96318, 30, 15 mL By Mouth Daily,PRN: NEEDED FOR CONSTIPATION, 160, cm, 03/22/19 15:22:00 EST, Height Start Date: 10/04/19 Status: Ordered levothyroxine 75 mcg (0.075 mg) oral tablet 1 tablet = 75 mcg, By Mouth, Daily, increase in dose, # 90 tablet, 1 Refills, Maintenance, 11/07/2009:50:00 EDT, Tablet, [facility] #84357, 160, cm, 03/22/19 15:22:00 EST, Height Start [...] capsule, 1 Refills, Maintenance, 11/23/19 15:26:00 EDT, [facility] #25330, 160, cm, 03/22/19 15:22:00 EST, Height Start Date: 11/23/19 Status: Ordered traZODone 50 mg oral tablet 50 mg, 1, tablet, By Mouth, Daily at bedtime, # 30 tablet, Refills 0, Tot. Refills 0, Maintenance, 02/22/20 8:45:00 EST, Route to Pharmacy Electronically, [facility] #71918, Partial fill upon patient request if the prescription is for a sche... Start Date: 02/22/20 Stop Date: 03/28/20 Status: Ordered warfarin 2.5 mg oral tablet 1 tablet, By Mouth, Daily, DIRECTED BY NURSE BASED ON INR RESULTS., # 30 tablet, 11 Refills, Maintenance, 09/18/19 16:11:00 EDT, [facility] #47643, 160, cm, 03/22/19 15:22:00 EST, Height Start [...] Myalgia(Confirmed) Active Pre-syncope(Confirmed) Active Orthostatic hypotension(Confirmed) Active *[id number] Care Partn er Tracy Hurst(Confirmed) Active Pain of right sacroiliac joint(Confirmed) Active Lewy body dementia(Confirmed) Active Tinea cruris(Confirmed) Active Unintentional weight loss(Confirmed) Active Urinary incontinence(Confirmed) Active Vitamin D deficiency(Confirmed) Active Social History Social History Type Response Smoking Status Former smoker entered on: 08/26/15 Sex
--- OUTSIDE RECORDS SUMMARY | 2022-10-25 20:00 | XMS_ITS | Continuity of Care Document ---
Author Name Unknown Organization [facility] Address [address] [place] [address]- Care Team Providers Care Refining Still Operator Name Role Phone Destinee JIMENEZ, Roberta Merida Primary Care Physician [facility] Date(s): 07/10/20 - 08/09/[address] [address]- Allergies, Adverse Reactions, Alerts Substance Reaction Severity [...] 11 Refills, Maintenance, 06/24/20 14:40:00 EDT, Tablet, [facility] #05147, Partial fill upon patient request if the [...] 2 Refills, Maintenance, 08/08/20 16:52:00 EDT, Tablet, [facility] #02642, Partial fill upon patient request if the prescription is for a schedule II opioid drug., 160, cm, 07/18/20 15:... Start Date: 08/08/20 Stop Date: 11/06/20 Status: Ordered levothyroxine 75 mcg (0.075 mg) oral tablet 1 tablet = 75 mcg, By Mouth, Daily, TK 1 T PO D, # 30 tablet, 3 Refills, Maintenance, 05/19/20 14:56:00 EST, Tablet, [facility] #73474, Partial fill upon patient request if the prescriptionis for a schedule II opioid drug., 160, cm, ... Start Date: 05/19/20 Stop Date: 09/16/20 Status: Ordered lidocaine 4% mucous membrane solution 1 application, Topically, 2 times a day, PRN Pain , Mild, # 1 each, 0 Refills, Maintenance, 05/22/20 16:43:00 EST, [facility] #63356, Partial fill upon patient request if the prescription is for a schedule II opioid drug., 1 application Topi... Start Date: 05/22/20 Status: Ordered midodrine 5 mg oral tablet 5 mg, 1, tablet, By Mouth, 3 times a day, lower dose tablet, # 90 tablet, Refills 3, Tot. Refills 3, Maintenance, 06/23/20 14:16:00 EDT, Route to Pharmacy Electronically, [facility] #55157,Partial fill upon patient request if the prescripti... [...] capsule, 0 Refills, Maintenance, 06/23/20 8:58:00 EDT, [facility] #87003, 160, cm, 05/21/20 9:12:00 EST, Height, 57.86, kg, 04/12/20 23:44:00 EST, Dry Weight Start Date: 06/23/20 Status: Ordered traZODone 50 mg oral tablet 2, tablet, By Mouth, Daily at bedtime, # 60 tablet, Refills 3, Tot. Refills 0, Maintenance, 07/15/20 10:03:00 EDT, Route to Pharmacy Electronically, [facility] #[id number], 160, cm, 05/21/20 9:12:00 EST, Height, 57.86, [...] Myalgia(Confirmed) Active Pre-syncope(Confirmed) Active Orthostatic hypotension(Confirmed) Active *[id number] Care Partn er Tracy Hurst(Confirmed) Active Pain of right sacroiliac joint(Confirmed) Active Lewy body dementia(Confirmed) Active Tinea cruris(Confirmed) Active Unintentional weight loss(Confirmed) Active Urinary incontinence(Confirmed) Active Vitamin D deficiency(Confirmed) Active Social History Social History Type Response Smoking Status Former smoker entered on: 08/26/15 Sex
--- OUTSIDE RECORDS SUMMARY | 2022-10-25 20:00 | XMS_ITS | Continuity of Care Document ---
Author Name Unknown Organization [facility] Address [address] [place] [address]- Care Team Providers Care Color Making Supervisor Name Role Phone Destinee JIMENEZ, Roberta Merida Primary Care Physician Encounter [facility] Date(s): 04/30/22 - 05/30/[address] [address]- Allergies, Adverse Reactions, Alerts Substance Reaction Severity Status penicillin rash Active Immunizations Given and Recorded Vaccine Date Status Refusal Reason [id number] 12y+ bivalent booster vax 03/05/22 Given influenza [...] inactivated 2 05/31/12 [facility] SARS-CoV-2 mRNA ([id number]) vax 06/19/21 Given SARS-CoV-2 (COVID-19) mRNA BNT-162b2 vac 05/17/20 Given SARS-CoV-2 (COVID-19) mRNA BNT-162b2 vac 3 04/26/20 Given pneumococcal 13-valent vaccine 08/31/16 Given pneumococcal 23-valent vaccine 4 05/31/12 Given tetanus/diphtheria/pertussis, acel(Tdap) 5 05/31/12 Given 1Result Comment: incorrect brand entered 2Admin Note: VIS dated 09/13/11 3Result Comment: Administered by Dalia Olguin AUTOMOBILE REPOSSESSOR 4Admin Note: VIS dated 12/17/08 5Admin Note: VIS dated 04/03/11 Medications Artificial Tears preserved solution 1 drops, Eyes, Both, 4 times a day, PRN Dry Eyes, # 10 mL, 11 Refills, Maintenance, 01/26/22 14:13:00 EST, Ophth Solution, [facility] #[id number], Partial fill upon patient request if the [...] tablet, 5 Refills, Maintenance, 10/26/21 14:08:00 EDT, [facility] #78081, Please print in dutch, 160, cm, 08/27/21 13:11:00 EDT, Height, 57.86, [...] 01/26/22 14:13:00 EST, Route to Pharmacy Electronically, [facility][id number], Partial fill upon patient request if the pr... Start Date: 01/26/22 Status: Ordered Eucerin Eczema Relief topical cream 1 application, Topically, 2 times a day, # 240 Gm, 5 Refills, Maintenance, 01/15/21 16:05:00 EDT, [facility] #18248, Partial fill upon patient request if the prescription is for a schedule II opioid drug., 1 application Topically 2 times a d... Start Date: 01/15/21 Status: Ordered guaiFENesin 400 mg oral tablet 1 tablet = 400 mg, By Mouth, Every 4 hours, PRN as needed for congestion and cough, # 30 tablet, 1 Refills, Maintenance, 08/27/21 13:40:00 EDT, Tablet, [facility] #65031, Partial fill upon patient request if the [...] 2 Refills, Maintenance, 08/17/21 13:14:00 EDT, Syrup, [facility] #04502, 15 mL By Mouth Daily,PRN:as needed for [...] 5 Refills, Maintenance, 10/26/21 14:08:00 EDT, Tablet, [facility] #22168, Partial fill upon patient request if the prescription is for a schedule II opioid drug., 160, cm, 08/27/21 13:... Start Date: 10/26/21 Status: Ordered levothyroxine 75 mcg (0.075 mg) oral tablet 1 tablet = 75 mcg, By Mouth, Daily, TK 1 T PO D, # 90 tablet, 1 Refills, Maintenance, 04/21/22 9:43:00 EST, Tablet, [facility] #[id number], Partial fill upon patient request if the prescription is for a schedule II opioid drug., 160, cm, ... Start Date: 04/21/22 Status: Ordered lidocaine 4% mucous membrane solution 1 application, Topically, 2 times a day, PRN Pain , Mild, # 1 each, 0 Refills, Maintenance, 05/22/20 16:43:00 EST, [facility] #[id number], Partial fill upon patient request if the prescription is for a schedule II opioid drug., 1 application Topi... Start Date: 05/22/20 Status: Ordered midodrine 5 mg oral tablet 1, tablet, By Mouth, 3 times a day, # 90 tablet, Refills 3, Tot. Refills 3, Maintenance, 10/27/21 15:24:00 EDT, Route to Pharmacy Electronically, [facility] #[id number], 160, cm, 08/27/21 13:11:00 EDT, Height, 57.86, [...] 90 capsule, 1 Refills, 11/23/21 16:42:00 EDT, [facility] #21920, 160, cm, 08/27/21 13:11:00 EDT, Height, 57.86, kg, 04/12/20 23:44:00 EST, Dry Weight Start Date: 11/23/21 Status: Ordered traZODone 50 mg oral tablet 2, tablet, By Mouth, Daily at bedtime, # 60 tablet, Refills 2, Tot. Refills 2, 05/03/22 11:14:00 EST, Route to Pharmacy Electronically, [facility] #[id number], 160, cm, 04/19/22 17:27:00 EST, Height Start [...] Pre-syncope Confirmed Active Orthostatic hypotension Confirmed Active *[id number] Investor Relations Specialist Yi Campos Confirmed Active Pain of right sacroiliac joint Confirmed Active Seizures Confirmed Active Lewy body dementia Confirmed Active Tinea cruris Confirmed Active Unintentional weight loss Confirmed Active Urinary incontinence Confirmed Active Vitamin D deficiency Confirmed Active Social History Social History Type Response Smoking Status Former smoker entered on: 08/26/15 Sex Patient Care team information Care Team Personnel Name: Matilde Mahmood RN Position: [facility] RN Member Role: Primary Care Nurse Name: Roberta Felipe NP Position: [facility] PCO Associate Professional Member Role: PCP Address: Address: [address] [place] [address] Name: ALESSANDRO VILLATORO RN Position: [facility] RN Member Role: Primary Care Nurse Name: Lilo Maldonado RN Position: [facility] RN Member Role: Primary Care Nurse Name: Anuj Murillo RN Position: [facility] RN Member Role: Primary Care Nurse Name: Jasmin Oliva Position: [facility] Outreach Member Role: Lifetime Consulting Physician Name: Suzanne Celeste RN Position: [facility] RN Member Role: Primary Care Nurse Name: Lily Solis RN Position: [facility] Onco RN Member Role: Primary Care Nurse Name: Adela Tadeo RN Position: [facility] RN Member Role: Primary Care Nurse Name: Maci Jones RN Position: [facility] RN Member Role: Primary Care Nurse Name: Nancy Morrow RN Position: [facility] RN Member Role: Primary Care Nurse Name: Etta Dewitt RN Position: [facility] RN Member Role: Primary Care Nurse Care Team Related Persons Name: JESSIKA HEARD Address: [address] [address] Name: JESSICA JOSUE Address: [address] [place] [address] Name: CARLOS CEJA Address: home [address] [address]
--- OUTSIDE RECORDS SUMMARY | 2022-10-25 20:00 | XMS_ITS | Continuity of Care Document ---
Author Name Unknown Organization [facility] Address [address] [place] [address]- Care Team Providers Care Ground Wirer Name Role Phone Destinee JIMENEZ, Roberta Merida Primary Care Physician [phone] Encounter [facility] Date(s): 04/25/20 - 05/02/[address] [address]- Attending Physician: Noelle Henriquez NP Referring Physician: Roberta Felipe NP Allergies, Adverse [...] Given 1Result Comment: Administered by Dalia Olguin DEFLASH AND WASH OPERATOR 2Result Comment: incorrect brand entered 3Admin [...] capsule, 0 Refills, Maintenance, 04/16/20 14:22:00 EST, [facility] #[id number], 160, cm, 04/16/20 8:39:00 EST, Height, 57.86, kg, 04/12/20 23:44:00 EST, Dry Weight Start Date: 04/16/20 Status: Ordered traZODone 50 mg oral tablet TAKE 2 TABLETS BY MOUTH DAILY AT BEDTIME Start Date: 04/12/20 Status: Ordered warfarin 3 mg oral tablet 1 tablet = 3 mg, By Mouth, Daily, # 30 tablet, 0 Refills, Maintenance, 04/16/20 12:40:00 EST, Tablet, [facility] #[id number], Partial fill upon patient request if the [...] Myalgia(Confirmed) Active Pre-syncope(Confirmed) Active Orthostatic hypotension(Confirmed) Active *[phone] Care Partn er Tracy Lagosan(Confirmed) Active Pain of right sacroiliac joint(Confirmed) Active Lewy body dementia(Confirmed) Active Tinea cruris(Confirmed) Active Unintentional weight loss(Confirmed) Active Urinary incontinence(Confirmed) Active Vitamin D deficiency(Confirmed) Active Social History Social History Type Response Smoking Status Former smoker entered on: 08/26/15 Sex
--- OUTSIDE RECORDS SUMMARY | 2022-10-25 20:00 | XMS_ITS | Continuity of Care Document ---
Author Name Unknown Organization [facility] Address [address] [place] [address]- Care Team Providers Care Abstract Manager Name Role Phone Destinee JIMENEZ, Roberta Merida Primary Care Physician [facility] Date[facility] 06/[facility] - 07/02/[address] [address]- Allergies, Adverse Reactions, Alerts Substance Reaction Severity [...] 11 Refills, Maintenance, 06/24/20 14:40:00 EDT, Tablet, [facility] #[id number], Partial fill upon patient request if the [...] 3 Refills, Maintenance, 05/19/20 14:56:00 EST, Tablet, [facility] #[id number], Partial fill upon patient request if the prescriptionis for a schedule II opioid drug., 160, cm, ... Start Date: 05/19/20 Stop Date: 09/16/20 Status: Ordered lidocaine 4% mucous membrane solution 1 application, Topically, 2 times a day, PRN Pain , Mild, # 1 each, 0 Refills, Maintenance, 05/22/20 16:43:00 EST, [facility] #[id number], Partial fill upon patient request if the prescription is for a schedule II opioid drug., 1 application Topi... Start Date: 05/22/20 Status: Ordered midodrine 5 mg oral tablet 5 mg, 1, tablet, By Mouth, 3 times a day, lower dose tablet, # 90 tablet, Refills 3, Tot. Refills 3, Maintenance, 06/23/20 14:16:00 EDT, Route to Pharmacy Electronically, [facility] #[id number],Partial fill upon patient request if the prescripti... [...] capsule, 0 Refills, Maintenance, 06/23/20 8:58:00 EDT, [facility] #[id number], 160, cm, 05/21/20 9:12:00 EST, Height, 57.86, [...] EST, Supply Start Date: 05/22/20 Status: Ordered Problem List Condition Effective Dates [...] Myalgia(Confirmed) Active Pre-syncope(Confirmed) Active Orthostatic hypotension(Confirmed) Active *[phone] Care Partn er Tracy Hurst(Confirmed) Active Pain of right sacroiliac joint(Confirmed) Active Lewy body dementia(Confirmed) Active Tinea cruris(Confirmed) Active Unintentional weight loss(Confirmed) Active Urinary incontinence(Confirmed) Active Vitamin D deficiency(Confirmed) Active Social History Social History Type Response Smoking Status Former smoker entered on: 08/26/15 Sex
--- OUTSIDE RECORDS SUMMARY | 2022-10-25 20:00 | XMS_ITS | Continuity of Care Document ---
Author Name Unknown Organization [facility] Address [address] [place] [address]- Care Team Providers Care Tin Whiz Machine Operator Name Role Phone Roberta Felipe NP Primary Care Physician [facility] Date(s): 09/10/20 - 10/10/[address] [address] Allergies, Adverse Reactions, Alerts Substance Reaction Severity [...] 11 Refills, Maintenance, 06/24/20 14:40:00 EDT, Tablet, [facility] #[id number], Partial fill upon patient request if the [...] 2 Refills, Maintenance, 09/29/20 16:10:00 EDT, Tablet, [facility] #[id number], Partial fill upon patient request ifthe prescription is for a schedule II opioid drug.,... Start Date: 09/29/20 Status: Ordered levothyroxine 75 mcg (0.075 mg) oral tablet 1 tablet = 75 mcg, By Mouth, Daily, TK 1 T PO D, # 90 tablet, 1 Refills, Maintenance, 09/16/20 14:56:00 EDT, Tablet, [facility] #[id number], Partial fill upon patient request if the prescriptionis for a schedule II opioid drug., 160, cm, ... Start Date: 09/16/20 Stop Date: 01/14/21 Status: Ordered lidocaine 4% mucous membrane solution 1 application, Topically, 2 times a day, PRN Pain , Mild, # 1 each, 0 Refills, Maintenance, 05/22/20 16:43:00 EST, [facility] #[id number], Partial fill upon patient request if the prescription is for a schedule II opioid drug., 1 application Topi... Start Date: 05/22/20 Status: Ordered midodrine 5 mg oral tablet 5 mg, 1, tablet, By Mouth, 3 times a day, lower dose tablet, # 90 tablet, Refills 3, Tot. Refills 3, Maintenance, 06/23/20 14:16:00 EDT, Route to Pharmacy Electronically, [facility] #[id number],Partial fill upon patient request if the prescripti... [...] capsule, 0 Refills, Maintenance, 09/10/20 8:11:00 EDT, [facility] #[id number], 160, cm, 08/21/20 12:36:00 EDT, Height, 57.86, kg, 04/12/20 23:44:00 EST, Dry Weight Start Date: 09/10/20 Status: Ordered traZODone 50 mg oral tablet 2, tablet, By Mouth, Daily at bedtime, # 60 tablet, Refills 3, Tot. Refills 0, Maintenance, 07/15/20 10:03:00 EDT, Route to Pharmacy Electronically, [facility] #[id number], 160, cm, 05/21/20 9:12:00 EST, Height, 57.86, [...] Myalgia(Confirmed) Active Pre-syncope(Confirmed) Active Orthostatic hypotension(Confirmed) Active *[id number] Care Partn er Tracy Hurst(Confirmed) Active Pain of right sacroiliac joint(Confirmed) Active Lewy body dementia(Confirmed) Active Tinea cruris(Confirmed) Active Unintentional weight loss(Confirmed) Active Urinary incontinence(Confirmed) Active Vitamin D deficiency(Confirmed) Active Social History Social History Type Response Smoking Status Former smoker entered on: 08/26/15 Sex
--- OUTSIDE RECORDS SUMMARY | 2022-10-25 20:00 | XMS_ITS | Continuity of Care Document ---
Author Name Unknown Organization [facility] Address [address] [place] [address]- Care Team Providers Care Land Mobile Radio Technician Name Role Phone Destinee JIMENEZ, Roberta Merida Primary Care Physician [phone] [facility]counter [facility] Date(s): 02/12/20 - 03/13/[address] [address]- Allergies, Adverse Reactions, Alerts Substance Reaction Severity [...] mL, 11 Refills, Maintenance, 10/03/19 11:19:00 EDT, [facility] #[id number], 1 drops Eyes, Both 3 times a [...] mL, 3 Refills, Maintenance, 10/04/19 11:21:00 EDT, [facility] #[id number], 30, 15 mL By Mouth Daily,PRN: NEEDED FOR CONSTIPATION, 160, cm, 03/22/19 15:22:00 EST, Height Start Date: 10/04/19 Status: Ordered levothyroxine 75 mcg (0.075 mg) oral tablet 1 tablet = 75 mcg, By Mouth, Daily, increase in dose, # 90 tablet, 1 Refills, Maintenance, 11/07/2009:50:00 EDT, Tablet, [facility] #[id number], 160, cm, 03/22/19 15:22:00 EST, Height Start [...] capsule, 1 Refills, Maintenance, 11/23/19 15:26:00 EDT, [facility] #[id number], 160, cm, 03/22/19 15:22:00 EST, Height Start [...] 03/13/20 9:32:00 EST, Route to Pharmacy Electronically, [facility] #[id number], Partial fill upon patient request if the prescription is for a sc... Start Date: 03/13/20 Stop Date: 07/11/20 Status: Ordered warfarin 2.5 mg oral tablet 1 tablet, By Mouth, Daily, DIRECTED BY NURSE BASED ON INR RESULTS., # 30 tablet, 11 Refills, Maintenance, 09/18/19 16:11:00 EDT, [facility] #[id number], 160, cm, 03/22/19 15:22:00 EST, Height Start [...] Myalgia(Confirmed) Active Pre-syncope(Confirmed) Active Orthostatic hypotension(Confirmed) Active *[id number] Care Partn er Tracyyusuf Hurst(Confirmed) Active Pain of right sacroiliac joint(Confirmed) Active Lewy body dementia(Confirmed) Active Tinea cruris(Confirmed) Active Unintentional weight loss(Confirmed) Active Urinary incontinence(Confirmed) Active Vitamin D deficiency(Confirmed) Active Social History Social History Type Response Smoking Status Former smoker entered on: 08/26/15 Sex
--- OUTSIDE RECORDS SUMMARY | 2022-10-25 20:00 | XMS_ITS | Continuity of Care Document ---
Author Name Unknown Organization [facility] Address [address] [place] [address]- Care Team Providers Care Earth Burner Name Role Phone Roberta Felipe NP Primary Care Physician [facility] Date(s): 04/30/20 - 05/30/[address] [address]- Allergies, Adverse Reactions, Alerts Substance Reaction Severity [...] 3 Refills, Maintenance, 05/19/20 14:56:00 EST, Tablet, [facility] #[id number], Partial fill upon patient request if the prescriptionis for a schedule II opioid drug., 160, cm, ... Start Date: 05/19/20 Stop Date: 09/16/20 Status: Ordered lidocaine 4% mucous membrane solution 1 application, Topically, 2 times a day, PRN Pain , Mild, # 1 each, 0 Refills, Maintenance, 05/22/20 16:43:00 EST, [facility] #[id number], Partial fill upon patient request if the [...] capsule, 0 Refills, Maintenance, 04/16/20 14:22:00 EST, [facility] #[id number], 160, cm, 04/16/20 8:39:00 EST, Height, 57.86, [...] 0 Refills, Maintenance, 04/16/20 12:40:00 EST, Tablet, [facility] #[id number], Partial fill upon patient request if the [...] Myalgia(Confirmed) Active Pre-syncope(Confirmed) Active Orthostatic hypotension(Confirmed) Active *[id number] Care Partn er Tracy Natali(Confirmed) Active Pain of right sacroiliac joint(Confirmed) Active Lewy body dementia(Confirmed) Active Tinea cruris(Confirmed) Active Unintentional weight loss(Confirmed) Active Urinary incontinence(Confirmed) Active Vitamin D deficiency(Confirmed) Active Social History Social History Type Response Smoking Status Former smoker entered on: 08/26/15 Sex
--- OUTSIDE RECORDS SUMMARY | 2022-10-25 20:00 | XMS_ITS | Continuity of Care Document ---
Author Name Unknown Organization [facility] Address [address] [place] [phone]- Care Team Providers Care Squaring Machine Operator Name Role Phone Destinee JIMENEZ, Roberta Merida Primary Care Physician [facility] Date(s): 01/30/21 - 03/01/[address] [address]- Allergies, Adverse Reactions, Alerts Substance Reaction Severity [...] Refills, Maintenance, 11/06/20 13:04:00 EDT, Ophth Solution, [facility] #[id number], Partial fill upon patient request if the [...] tablet, 5 Refills, Maintenance, 11/20/20 11:43:00 EDT, [email or web address] #[id number], Please print in dominican, 160, cm, 11/04/20 11:39:00 EDT, Height, 57.86, [...] Gm, 5 Refills, Maintenance, 01/15/21 16:05:00 EDT, [email or web address] #[id number], Partial fill upon patient request if the [...] 2 Refills, Maintenance, 11/06/20 13:03:00 EDT, Syrup, [facility] #[id number], Partial fill upon patient request if the [...] 3 Refills, Maintenance, 02/20/21 12:51:00 EST, Tablet, [facility] #[id number], Partial fill upon patient request if the prescription is for a schedule II opioid drug., 160, cm, 01/15/21 14:... Start Date: 02/20/21 Status: Ordered levothyroxine 75 mcg (0.075 mg) oral tablet 1 tablet = 75 mcg, By Mouth, Daily, TK 1 T PO D, # 90 tablet, 1 Refills, Maintenance, 02/19/21 13:28:00 EST, Tablet, [facility] #[id number], Partial fill upon patient request if the prescriptionis for a schedule II opioid drug., 160, cm, ... Start Date: 02/19/21 Status: Ordered lidocaine 4% mucous membrane solution 1 application, Topically, 2 times a day, PRN Pain , Mild, # 1 each, 0 Refills, Maintenance, 05/22/20 16:43:00 EST, [email or web address] #[id number], Partial fill upon patient request if the prescription is for a schedule II opioid drug., 1 application Topi... Start Date: 05/22/20 Status: Ordered midodrine 5 mg oral tablet 1, tablet, By Mouth, 3 times a day, # 90 tablet, Refills 3, Tot. Refills 0, Maintenance, 10/22/20 13:38:00 EDT, Route to Pharmacy Electronically, [email or web address] #[id number], 160, cm, 09/26/20 14:49:00 EDT, Height, 57.86, [...] Mouth, Daily, # 90 capsule, 0 Refills, 02/18/21 14:33:00 EST, [email or web address] #[id number], 160, cm, 01/15/21 14:39:00 EDT, Height, 57.86, kg, 04/12/20 23:44:00 EST, Dry Weight Start Date: 02/18/21 Status: Ordered traZODone 50 mg oral tablet 2, tablet, By Mouth, Daily at bedtime, # 60 tablet, Refills 2, Route to Pharmacy Electronically, [email or web address] #[id number], 160, cm, 11/04/20 11:39:00 EDT, Height, 57.86, [...] Myalgia(Confirmed) Active Pre-syncope(Confirmed) Active Orthostatic hypotension(Confirmed) Active *[id number] Care Partn er Tracy Hurst(Confirmed) Active Pain of right sacroiliac joint(Confirmed) Active Lewy body dementia(Confirmed) Active Tinea cruris(Confirmed) Active Unintentional weight loss(Confirmed) Active Urinary incontinence(Confirmed) Active Vitamin D deficiency(Confirmed) Active Social History Social History Type Response Smoking Status Former smoker entered on: 08/26/15 Sex
--- OUTSIDE RECORDS SUMMARY | 2022-10-25 20:00 | XMS_ITS | Continuity of Care Document ---
Author Name Unknown Organization [facility] ter Address [address] [place] [address]- Care Team Providers Care Dairy Technologist Name Role Phone Destinee JIMENEZ, Roberta Merida Primary Care Physician [phone] Encounter [facility] [place] Date(s): 03/13/19 - 03/13/19 [facility] [address] [place], [place] [address] [phone] Attending Physician: Renée CENTENO, José Miguel Allergies, Adverse Reactions, Alerts Substance Reaction Severity Status penicillin rash Active Immunizations Given and Recorded Vaccine Date Status Refusal Reason influenza virus vaccine, inactivated 01/17/18 Give n [...] EDT, Compound Start Date: 08/10/18 Status: Ordered lactulose 10 gm/15 ml oral syrup See Instructions, # 480 mL, TAKE 15ML BY MOUTH ONCE DAILY NEEDED FOR CONSTIPATION., [facility] #[id number] Start Date: 11/24/18 Status: Ordered levothyroxine 75 mcg (0.075 mg) [...] Status: Ordered midodrine 10 mg oral tablet 1 tablet = 10 mg, By Mouth, 3 times a day, # 90 tablet, 11 Refills, Soft Stop, 03/08/19 10:54:00 EST, [facility] #[id number], 160, cm, 12/08/18 8:05:00 EDT, Height Start Date: 03/08/19 Stop Date: 03/02/20 Status: Ordered omeprazole 40 mg oral enteric coated capsule 1 capsule = 40 mg, By Mouth, Daily, # 30 capsule, 2 Refills, Maintenance, 02/19/19 11:06:49 EST, [facility], 160, cm, 12/08/18 8:05:01 EDT, Height, 67.7, kg, 03/06/17 2:37:17 EST, Dry Weight Start Date: 02/19/19 Status: Ordered warfarin 2.5 mg oral tablet 1 tablet = 2.5 mg, By Mouth, Daily, take as directed by nurse based on INR results, # 30 tablet, 11Refills, Maintenance, 05/25/18 11:41:04 EDT, Tablet Start Date: 05/25/18 Stop Date: 05/20/19 Status: Ordered Problem List Condition Effective Dates Status Health Status Inform ant BPH (benign prostatic hyperplasia)(Confirmed) Active CKD - chronic kidney disease(Confirmed) Active Constipation(Confirmed) Active Severe muscle deconditioning(Confirmed) Active Dementia(Confirmed) Active Developmental delay(Confirmed) Active Muscular deconditioning(Confirmed) Active Physical deconditioning(Confirmed) Active Dry eyes, bilateral(Confirmed) Active History of pulmonary embolism(Confirmed) Active Hearing loss(Confirmed) Active Adult hypothyroidism(Confirmed) Active Cerumen impaction(Confirmed) Active Chronic pruritus, skin(Confirmed) Active Low back pain(Confirmed) Active Hypotension(Confirmed) Active Myalgia(Confirmed) Active *[id number]-[facility] Partn christie- Vimal Mcfarland(Confirmed) Active Pain of right sacroiliac joint(Confirmed) Active Lewy body dementia(Confirmed) Active Tinea cruris(Confirmed) Active Vitamin D deficiency(Confirmed) Active Social History Social History Type Response Smoking Status Former smoker entered on: 08/26/15 Sex
--- OUTSIDE RECORDS SUMMARY | 2022-10-25 20:00 | XMS_ITS | Continuity of Care Document ---
Author Name Unknown Organization [facility] ter Address [address] [place] [address]- Care Team Providers Care Chairman & Chief Executive Officer Name Role Phone Roberta Felipe NP Primary Care Physician [phone] Encounter [facility] [place] Date(s): 05/12/20 - 06/11/[address] [address] Allergies, Adverse Reactions, Alerts Substance Reaction [...] Given 1Result Comment: Administered by Dalia Olguin PRINTED CIRCUIT BOARD LAYOUT DESIGNER 2Result Comment: incorrect brand entered 3Admin Note: [...] 3 Refills, Maintenance, 05/19/20 14:56:00 EST, Tablet, [facility] #[id number], Partial fill upon patient request if the prescriptionis for a schedule II opioid drug., 160, cm, ... Start Date: 05/19/20 Stop Date: 09/16/20 Status: Ordered lidocaine 4% mucous membrane solution 1 application, Topically, 2 times a day, PRN Pain , Mild, # 1 each, 0 Refills, Maintenance, 05/22/20 16:43:00 EST, [facility] #[id number], Partial fill upon patient request if the [...] capsule, 0 Refills, Maintenance, 04/16/20 14:22:00 EST, [facility] #[id number], 160, cm, 04/16/20 8:39:00 EST, Height, 57.86, [...] Supply Start Date: 05/22/20 Status: Ordered warfarin 2.5 mg oral tablet See Instructions, Dosing given weekly by RN based on nurse protocol 2.5 mg tablet to replace 3mg tablet, # 30 each, 11 Refills, Maintenance, 06/03/20 14:11:00 EDT, [facility] #[id number], Partial fill upon patient request if the prescription is... Start Date: 06/03/20 Status: Ordered Problem List Condition Effective Dates [...] Myalgia(Confirmed) Active Pre-syncope(Confirmed) Active Orthostatic hypotension(Confirmed) Active *[phone] Care Partn er Tracy Hurst(Confirmed) Active Pain of right sacroiliac joint(Confirmed) Active Lewy body dementia(Confirmed) Active Tinea cruris(Confirmed) Active Unintentional weight loss(Confirmed) Active Urinary incontinence(Confirmed) Active Vitamin D deficiency(Confirmed) Active Social History Social History Type Response Smoking Status Former smoker entered on: 08/26/15 Sex
--- OUTSIDE RECORDS SUMMARY | 2022-10-25 20:00 | XMS_ITS | Continuity of Care Document ---
Author Name Unknown Organization [facility] Address [address] [place] [address]- Care Team Providers Care Core Shaper Sides Name Role Phone Destinee JIMENEZ, Roberta Merida Primary Care Physician [facility] Date(s): 04/07/20 - 05/07/[address] [address]- Allergies, Adverse Reactions, Alerts Substance Reaction Severity [...] capsule, 0 Refills, Maintenance, 04/16/20 14:22:00 EST, [facility] #[id number], 160, cm, 04/16/20 8:39:00 EST, Height, 57.86, kg, 04/12/20 23:44:00 EST, Dry Weight Start Date: 04/16/20 Status: Ordered traZODone 50 mg oral tablet TAKE 2 TABLETS BY MOUTH DAILY AT BEDTIME Start Date: 04/12/20 Status: Ordered warfarin 3 mg oral tablet 1 tablet = 3 mg, By Mouth, Daily, # 30 tablet, 0 Refills, Maintenance, 04/16/20 12:40:00 EST, Tablet, [facility] #[id number], Partial fill upon patient request if the [...] Myalgia(Confirmed) Active Pre-syncope(Confirmed) Active Orthostatic hypotension(Confirmed) Active *[id number] Care Partn er Tracy Natali(Confirmed) Active Pain of right sacroiliac joint(Confirmed) Active Lewy body dementia(Confirmed) Active Tinea cruris(Confirmed) Active Unintentional weight loss(Confirmed) Active Urinary incontinence(Confirmed) Active Vitamin D deficiency(Confirmed) Active Social History Social History Type Response Smoking Status Former smoker entered on: 08/26/15 Sex
--- OUTSIDE RECORDS SUMMARY | 2022-10-25 20:00 | XMS_ITS | Continuity of Care Document ---
Author Name Unknown Organization [facility] Address [address] [place] [address]- Care Team Providers Care Controls Operator Molded Goods Name Role Phone Roberta Felipe NP Primary Care Physician [facility] Date(s): 06/25/20 - 07/25/[address] [address] Allergies, Adverse Reactions, Alerts Substance Reaction Severity [...] Given 1Result Comment: Administered by Dalia Olguin [place] [employer] 2Result Comment: incorrect brand entered 3Admin Note: VIS dated 09/13/11 4Admin Note: VIS dated 12/17/08 5Admin Note: VIS dated 04/03/11 Medications apixaban 2.5 mg oral tablet 1 tablet = 2.5 mg, By Mouth, 2 times a day, Transitioning from warfarin to apixaban, # 60 tablet, 11 Refills, Maintenance, 06/24/20 14:40:00 EDT, Tablet, [facility] #[id number], Partial fill upon patient request if the [...] 3 Refills, Maintenance, 05/19/20 14:56:00 EST, Tablet, [facility] #[id number], Partial fill upon patient request if the prescriptionis for a schedule II opioid drug., 160, cm, ... Start Date: 05/19/20 Stop Date: 09/16/20 Status: Ordered lidocaine 4% mucous membrane solution 1 application, Topically, 2 times a day, PRN Pain , Mild, # 1 each, 0 Refills, Maintenance, 05/22/20 16:43:00 EST, [facility] #[id number], Partial fill upon patient request if the prescription is for a schedule II opioid drug., 1 application Topi... Start Date: 05/22/20 Status: Ordered midodrine 5 mg oral tablet 5 mg, 1, tablet, By Mouth, 3 times a day, lower dose tablet, # 90 tablet, Refills 3, Tot. Refills 3, Maintenance, 06/23/20 14:16:00 EDT, Route to Pharmacy Electronically, [facility] #[id number],Partial fill upon patient request if the prescripti... [...] capsule, 0 Refills, Maintenance, 06/23/20 8:58:00 EDT, [facility] #[id number], 160, cm, 05/21/20 9:12:00 EST, Height, 57.86, kg, 04/12/20 23:44:00 EST, Dry Weight Start Date: 06/23/20 Status: Ordered traZODone 50 mg oral tablet 2, tablet, By Mouth, Daily at bedtime, # 60 tablet, Refills 3, Tot. Refills 0, Maintenance, 07/15/20 10:03:00 EDT, Route to Pharmacy Electronically, [facility] #[id number], 160, cm, 05/21/20 9:12:00 EST, Height, 57.86, [...] Myalgia(Confirmed) Active Pre-syncope(Confirmed) Active Orthostatic hypotension(Confirmed) Active *[id number] Care Partn er Tracy Hurst(Confirmed) Active Pain of right sacroiliac joint(Confirmed) Active Lewy body dementia(Confirmed) Active Tinea cruris(Confirmed) Active Unintentional weight loss(Confirmed) Active Urinary incontinence(Confirmed) Active Vitamin D deficiency(Confirmed) Active Social History Social History Type Response Smoking Status Former smoker entered on: 08/26/15 Sex
--- OUTSIDE RECORDS SUMMARY | 2022-10-25 20:00 | XMS_ITS | Continuity of Care Document ---
Author Name Unknown Organization [facility] Address [address] [place] [address]- Care Team Providers Care Silverware Supervisor Name Role Phone Destinee JIMENEZ, Roberta Merida Primary Care Physician [facility]counter [facility] Date(s): 03/28/21 - 06/24/[address] [address]- Attending Physician: Geovanny Robert MD Admitting Physician: Geovanny Robert MD Referring Physician: Geovanny Robert MD Allergies, Adverse Reactions, Alerts Substance Reaction Severity Status penicillin rash Active Immunizations Given and Recorded Vaccine Date Status Refusal Reason SARS-CoV-2 mRNA ([id number]) vax 06/19/21 Given influenza virus vaccine, inactivated [...] 09/13/11 3Result Comment: Administered by Dalia Olguin TRENCHER DRIVER 4Admin Note: VIS dated 12/17/08 5Admin Note: VIS dated 04/03/11 Medications Artificial Tears preserved solution 1 drops, Eyes, Both, 4 times a day, PRN Dry Eyes, # 10 mL, 11 Refills, Maintenance, 11/06/20 13:04:00 EDT, Ophth Solution, [facility] #[id number], Partial fill upon patient request if the [...] ulcer L89.91, 11/20/20 14:01:00 EDT, Dispense brand cheryl... Start Date: 11/20/20 Status: Ordered Depakote 250 mg oral enteric coated tablet See Instructions, 1 tablet By Mouth in the AM and 2 tablet at bedtime, # 90 tablet, 5 Refills, Maintenance, 11/20/20 11:43:00 EDT, [facility] #[id number], Please print in slovak, 160, cm, 11/04/20 11:39:00 EDT, Height, 57.86, [...] Gm, 5 Refills, Maintenance, 01/15/21 16:05:00 EDT, [facility] #[id number], Partial fill upon patient request if the [...] 2 Refills, Maintenance, 11/06/20 13:03:00 EDT, Syrup, [facility] #[id number], Partial fill upon patient request if the [...] 3 Refills, Maintenance, 02/20/21 12:51:00 EST, Tablet, [facility] #[id number], Partial fill upon patient request if the prescription is for a schedule II opioid drug., 160, cm, 01/15/21 14:... Start Date: 02/20/21 Status: Ordered levothyroxine 75 mcg (0.075 mg) oral tablet 1 tablet = 75 mcg, By Mouth, Daily, TK 1 T PO D, # 90 tablet, 1 Refills, Maintenance, 02/19/21 13:28:00 EST, Tablet, [facility] #[id number], Partial fill upon patient request if the prescriptionis for a schedule II opioid drug., 160, cm, .. Start Date: 02/19/21 Status: Ordered lidocaine 4% mucous membrane solution 1 application, Topically, 2 times a day, PRN Pain , Mild, # 1 each, 0 Refills, Maintenance, 05/22/20 16:43:00 EST, [facility] #[id number], Partial fill upon patient request if the prescription is for a schedule II opioid drug., 1 application Topi... Start Date: 05/22/20 Status: Ordered midodrine 5 mg oral tablet 1, tablet, By Mouth, 3 times a day, # 90 tablet, Refills 3, Tot. Refills 0, Maintenance, 10/22/20 13:38:00 EDT, Route to Pharmacy Electronically, [facility] #[id number], 160, cm, 09/26/20 14:49:00 EDT, Height, 57.86, [...] 90 capsule, 0 Refills, 05/28/21 14:21:00 EDT, [facility] #[id number], 160, cm, 01/15/21 14:39:00 EDT, Height, 57.86, kg, 04/12/20 23:44:00 EST, Dry Weight Start Date: 05/28/21 Status: Ordered traZODone 50 mg oral tablet 2, tablet, By Mouth, Daily at bedtime, # 60 tablet, Refills 2, Route to Pharmacy Electronically, [facility] #[id number], 160, cm, 11/04/20 11:39:00 EDT, Height, 57.86, [...] Myalgia(Confirmed) Active Pre-syncope(Confirmed) Active Orthostatic hypotension(Confirmed) Active *[id number] Care Partn er Tracy Hurst(Confirmed) Active Pain of right sacroiliac joint(Confirmed) Active Lewy body dementia(Confirmed) Active Tinea cruris(Confirmed) Active Unintentional weight loss(Confirmed) Active Urinary incontinence(Confirmed) Active Vitamin D deficiency(Confirmed) Active Social History Social History Type Response Smoking Status Former smoker entered on: 08/26/15 Sex
--- OUTSIDE RECORDS SUMMARY | 2022-10-25 20:00 | XMS_ITS | Continuity of Care Document ---
Author Name Unknown Organization [facility] Address [address] [place] [address]- Care Team Providers Care Bakery Pastry Internship Name Role Phone Destinee JIMENEZ, Roberta Merida Primary Care Physician Encounter [facility] Date(s): 05/06/20 - 06/05/[address] [address]- Allergies, Adverse Reactions, Alerts Substance Reaction Severity [...] 3 Refills, Maintenance, 05/19/20 14:56:00 EST, Tablet, [facility] #[id number], Partial fill upon patient request if the prescriptionis for a schedule II opioid drug., 160, cm, ... Start Date: 05/19/20 Stop Date: 09/16/20 Status: Ordered lidocaine 4% mucous membrane solution 1 application, Topically, 2 times a day, PRN Pain , Mild, # 1 each, 0 Refills, Maintenance, 05/22/20 16:43:00 EST, [facility] #[id number], Partial fill upon patient request if the [...] capsule, 0 Refills, Maintenance, 04/16/20 14:22:00 EST, [facility] #[id number], 160, cm, 04/16/20 8:39:00 EST, Height, 57.86, [...] each, 11 Refills, Maintenance, 06/03/20 14:11:00 EDT, [facility] #[id number], Partial fill upon patient request if the [...] Myalgia(Confirmed) Active Pre-syncope(Confirmed) Active Orthostatic hypotension(Confirmed) Active *[id number] Care Partn er Tracy Hurst(Confirmed) Active Pain of right sacroiliac joint(Confirmed) Active Lewy body dementia(Confirmed) Active Tinea cruris(Confirmed) Active Unintentional weight loss(Confirmed) Active Urinary incontinence(Confirmed) Active Vitamin D deficiency(Confirmed) Active Social History Social History Type Response Smoking Status Former smoker entered on: 08/26/15 Sex
--- OUTSIDE RECORDS SUMMARY | 2022-10-25 20:00 | XMS_ITS | Continuity of Care Document ---
Author Name Unknown Organization [facility] Address [address] [place] [address]- Care Team Providers Care Insurance Sales Representative Name Role Phone Destinee JIMENEZ, Roberta Merida Primary Care Physician [phone] Encounter [facility] Date(s): 11/05/20 - 12/05/[address] [address]- Allergies, Adverse Reactions, Alerts Substance Reaction Severity [...] Refills, Maintenance, 11/06/20 13:04:00 EDT, Ophth Solution, [facility] #[id number], Partial fill upon patient request if the [...] tablet, 5 Refills, Maintenance, 11/20/20 11:43:00 EDT, [facility] #[id number], Please print in bengali, 160, cm, 11/04/20 11:39:00 EDT, Height, 57.86, [...] 2 Refills, Maintenance, 11/06/20 13:03:00 EDT, Syrup, [facility] #[id number], Partial fill upon patient request if the [...] 6 Refills, Maintenance, 11/20/20 11:42:00 EDT, Tablet, [facility] #20456, Partial fill upon patient request if the prescription is for a schedule II opioid drug., 160, cm, 11/04/20 11:... Start Date: 11/20/20 Stop Date: 06/18/21 Status: Ordered levothyroxine 75 mcg (0.075 mg) oral tablet 1 tablet = 75 mcg, By Mouth, Daily, TK 1 T PO D, # 90 tablet, 1 Refills, Maintenance, 09/16/20 14:56:00 EDT, Tablet, [facility] #[id number], Partial fill upon patient request if the prescriptionis for a schedule II opioid drug., 160, cm, ... Start Date: 09/16/20 Stop Date: 01/14/21 Status: Ordered lidocaine 4% mucous membrane solution 1 application, Topically, 2 times a day, PRN Pain , Mild, # 1 each, 0 Refills, Maintenance, 05/22/20 16:43:00 EST, [facility] #[id number], Partial fill upon patient request if the prescription is for a schedule II opioid drug., 1 application Topi... Start Date: 05/22/20 Status: Ordered midodrine 5 mg oral tablet 1, tablet, By Mouth, 3 times a day, # 90 tablet, Refills 3, Tot. Refills 0, Maintenance, 10/22/20 13:38:00 EDT, Route to Pharmacy Electronically, [facility] #[id number], 160, cm, 09/26/20 14:49:00 EDT, Height, 57.86, [...] Mouth, Daily, # 90 capsule, 0 Refills, [facility] #[id number], 160, cm, 11/04/2110:39:00 EDT, Height, 57.86, kg, 04/12/20 23:44:00 EST, Dry Weight Start Date: 11/27/20 Status: Ordered traZODone 50 mg oral tablet 2, tablet, By Mouth, Daily at bedtime, # 60 tablet, Refills 2, Route to Pharmacy Electronically, [facility] #[id number], 160, cm, 11/04/20 11:39:00 EDT, Height, 57.86, [...] Myalgia(Confirmed) Active Pre-syncope(Confirmed) Active Orthostatic hypotension(Confirmed) Active *[id number] Care Partn er Tracy Hurst(Confirmed) Active Pain of right sacroiliac joint(Confirmed) Active Lewy body dementia(Confirmed) Active Tinea cruris(Confirmed) Active Unintentional weight loss(Confirmed) Active Urinary incontinence(Confirmed) Active Vitamin D deficiency(Confirmed) Active Social History Social History Type Response Smoking Status Former smoker entered on: 08/26/15 Sex
--- OUTSIDE RECORDS SUMMARY | 2022-10-25 20:00 | XMS_ITS | Continuity of Care Document ---
Author Name Unknown Organization [facility] Address [address] [place] [address]- Care Team Providers Care Screw Machine Adjuster Automatic Name Role Phone Roberta Felipe NP Primary Care Physician [phone] [place] [facility] Date(s): 06/11/20 - 07/13/[address] [address]- Attending Physician: Not on Staff, Attending MD [...] 11 Refills, Maintenance, 06/24/20 14:40:00 EDT, Tablet, [facility] #[id number], Partial fill upon patient request if the [...] 3 Refills, Maintenance, 05/19/20 14:56:00 EST, Tablet, [facility] #[id number], Partial fill upon patient request if the prescriptionis for a schedule II opioid drug., 160, cm, ... Start Date: 05/19/20 Stop Date: 09/16/20 Status: Ordered lidocaine 4% mucous membrane solution 1 application, Topically, 2 times a day, PRN Pain , Mild, # 1 each, 0 Refills, Maintenance, 05/22/20 16:43:00 EST, [facility] #[id number], Partial fill upon patient request if the prescription is for a schedule II opioid drug., 1 application Topi... Start Date: 05/22/20 Status: Ordered midodrine 5 mg oral tablet 5 mg, 1, tablet, By Mouth, 3 times a day, lower dose tablet, # 90 tablet, Refills 3, Tot. Refills 3, Maintenance, 06/23/20 14:16:00 EDT, Route to Pharmacy Electronically, [facility] #[id number],Partial fill upon patient request if the prescripti... [...] capsule, 0 Refills, Maintenance, 06/23/20 8:58:00 EDT, [facility] #[id number], 160, cm, 05/21/20 9:12:00 EST, Height, 57.86, [...] Myalgia(Confirmed) Active Pre-syncope(Confirmed) Active Orthostatic hypotension(Confirmed) Active *[phone] Care Partn er Tracy Hurst(Confirmed) Active Pain of right sacroiliac joint(Confirmed) Active Lewy body dementia(Confirmed) Active Tinea cruris(Confirmed) Active Unintentional weight loss(Confirmed) Active Urinary incontinence(Confirmed) Active Vitamin D deficiency(Confirmed) Active Social History Social History Type Response Smoking Status Former smoker entered on: 08/26/15 Sex
--- OUTSIDE RECORDS SUMMARY | 2022-10-25 20:00 | XMS_ITS | Continuity of Care Document ---
Author Name Unknown Organization [facility] Address [address] [place] [address]- Care Team Providers Care Hair Baler Name Role Phone Roberta Felipe NP Primary Care Physician [phone] Encounter [facility] Date(s): 07/17/20 - 08/16/[address] [address] Allergies, Adverse Reactions, Alerts Substance [...] Given 1Result Comment: Administered by Dalia Olguin FIELD ARTILLERY OPERATIONS SPECIALIST 2Result Comment: incorrect brand entered 3Admin Note: VIS dated 09/13/11 4Admin Note: VIS dated 12/17/08 5Admin Note: VIS dated 04/03/11 Medications apixaban 2.5 mg oral tablet 1 tablet = 2.5 mg, By Mouth, 2 times a day, Transitioning from warfarin to apixaban, # 60 tablet, 11 Refills, Maintenance, 06/24/20 14:40:00 EDT, Tablet, [facility] #[id number], Partial fill upon patient request if the [...] 2 Refills, Maintenance, 08/08/20 16:52:00 EDT, Tablet, [facility] #[id number], Partial fill upon patient request if the [...] 09/16/20 14:56:00 EDT, 05/19/20 14:56:00 EST, Tablet, [facility] #[id number], Partial fill upon patient request if the prescription is for a schedule... Start Date: 05/19/20 Stop Date: 09/16/20 Status: Ordered levothyroxine 75 mcg (0.075 mg) oral tablet 1 tablet = 75 mcg, By Mouth, Daily, TK 1 T PO D, # 90 tablet, 1 Refills, Maintenance, 09/16/20 14:56:00 EDT, Tablet, [facility] #[id number], Partial fill upon patient request if the prescriptionis for a schedule II opioid drug., 160, cm, ... Start Date: 09/16/20 Stop Date: 01/14/21 Status: Ordered lidocaine 4% mucous membrane solution 1 application, Topically, 2 times a day, PRN Pain , Mild, # 1 each, 0 Refills, Maintenance, 05/22/20 16:43:00 EST, [facility] #[id number], Partial fill upon patient request if the prescription is for a schedule II opioid drug., 1 application Topi... Start Date: 05/22/20 Status: Ordered midodrine 5 mg oral tablet 5 mg, 1, tablet, By Mouth, 3 times a day, lower dose tablet, # 90 tablet, Refills 3, Tot. Refills 3, Maintenance, 06/23/20 14:16:00 EDT, Route to Pharmacy Electronically, [facility] #[id number],Partial fill upon patient request if the prescripti... [...] capsule, 0 Refills, Maintenance, 06/23/20 8:58:00 EDT, [facility] #[id number], 160, cm, 05/21/20 9:12:00 EST, Height, 57.86, kg, 04/12/20 23:44:00 EST, Dry Weight Start Date: 06/23/20 Status: Ordered traZODone 50 mg oral tablet 2, tablet, By Mouth, Daily at bedtime, # 60 tablet, Refills 3, Tot. Refills 0, Maintenance, 07/15/20 10:03:00 EDT, Route to Pharmacy Electronically, [facility] #[id number], 160, cm, 05/21/20 9:12:00 EST, Height, 57.86, [...] Myalgia(Confirmed) Active Pre-syncope(Confirmed) Active Orthostatic hypotension(Confirmed) Active *[id number] Care Partn er Tracy Hurst(Confirmed) Active Pain of right sacroiliac joint(Confirmed) Active Lewy body dementia(Confirmed) Active Tinea cruris(Confirmed) Active Unintentional weight loss(Confirmed) Active Urinary incontinence(Confirmed) Active Vitamin D deficiency(Confirmed) Active Social History Social History Type Response Smoking Status Former smoker entered on: 08/26/15 Sex
--- OUTSIDE RECORDS SUMMARY | 2022-10-25 20:00 | XMS_ITS | Continuity of Care Document ---
Author Name Unknown Organization [facility] Address [address] [place] [address]- Care Team Providers Care Altitude Chamber Technician Name Role Phone Destinee JIMENEZ, Roberta Merida Primary Care Physician [phone] Encounter [facility] Date(s): 11/04/20 - 11/04/[address] [address]- Encounter Diagnosis Lewy body dementia(Final) - 11/04/20 Hypotension(Final) - 11/04/20 Discharge Disposition: A-D/C Home Attending Physician: Blanca Patino MD Admitting Physician: Blanca Patino MD Referring Physician: Not on Staff, Referring MD [...] tablet, 5 Refills, Maintenance, 10/28/20 15:23:00 EDT, [facility] #[id number], has Cr of 1.3, so should goup [...] 2 Refills, Maintenance, 09/29/20 16:10:00 EDT, Tablet, [facility] #[id number], Partial fill upon patient request ifthe prescription is for a schedule II opioid drug.,... Start Date: 09/29/20 Status: Ordered levothyroxine 75 mcg (0.075 mg) oral tablet 1 tablet = 75 mcg, By Mouth, Daily, TK 1 T PO D, # 90 tablet, 1 Refills, Maintenance, 09/16/20 14:56:00 EDT, Tablet, [facility] #[id number], Partial fill upon patient request if the prescriptionis for a schedule II opioid drug., 160, cm, ... Start Date: 09/16/20 Stop Date: 01/14/21 Status: Ordered lidocaine 4% mucous membrane solution 1 application, Topically, 2 times a day, PRN Pain , Mild, # 1 each, 0 Refills, Maintenance, 05/22/20 16:43:00 EST, [facility] #[id number], Partial fill upon patient request if the prescription is for a schedule II opioid drug., 1 application Topi... Start Date: 05/22/20 Status: Ordered midodrine 5 mg oral tablet 1, tablet, By Mouth, 3 times a day, # 90 tablet, Refills 3, Tot. Refills 0, Maintenance, 10/22/20 13:38:00 EDT, Route to Pharmacy Electronically, [facility] #[id number], 160, cm, 09/26/20 14:49:00 EDT, Height, 57.86, [...] capsule, 0 Refills, Maintenance, 09/10/20 8:11:00 EDT, [facility] #[id number], 160, cm, 08/21/20 12:36:00 EDT, Height, 57.86, kg, 04/12/20 23:44:00 EST, Dry Weight Start Date: 09/10/20 Status: Ordered traZODone 50 mg oral tablet 2, tablet, By Mouth, Daily at bedtime, # 60 tablet, Refills 3, Tot. Refills 0, Maintenance, 07/15/20 10:03:00 EDT, Route to Pharmacy Electronically, [facility] #[id number], 160, cm, 05/21/20 9:12:00 EST, Height, 57.86, [...] Myalgia(Confirmed) Active Pre-syncope(Confirmed) Active Orthostatic hypotension(Confirmed) Active *[id number] Care Partn er Tracy Hurst(Confirmed) Active Pain of right sacroiliac joint(Confirmed) Active Lewy body dementia(Confirmed) Active Tinea cruris(Confirmed) Active Unintentional weight loss(Confirmed) Active Urinary incontinence(Confirmed) Active Vitamin D deficiency(Confirmed) Active Results Radiology Reports * Exam Date Time Procedure Performing Provider Status 11/04/20 1:58 PM Chest Portable Do , Saad; Auth (Sada regan) Notes: (Chest Portable) Reason For Exam: Shortness of Breath RESULT: Chest Portable Chest Portable CLINICAL INDICATION: Reason: Shortness of Breath; Clinical Question(s): CHF COMPARISON: Chest x-ray, 05/14/2020. FINDINGS: The cardiac silhouette is within normal limits. Aorta is mildly tortuous. Hilar contours are normal. There are low lung volumes with mild bibasilar atelectasis. There is no pleural effusion, pneumothorax, or evidence of CHF. No acute osseous abnormality is noted. IMPRESSION: Low lung volumes with bibasilar atelectasis. WSN: [id number] Ordering Physician: Rosanne King Dictated By: Ria Walsh MD Dictated Date/Time: 11/04/20 2:06 pm Reviewed By: Ria Walsh MD Signed By: Ria Walhs MD Signed Date/Time: 11/04/20 2:06 pm Transcribed By: KESHIA Transcribed Date/Time: 11/04/20 2:05 pm Vital Signs Most recent to oldest [Reference Range]: 1 Oxygen Saturation [94-100 %] 100 % (11/04/20 4:21 PM) Pulse Rate [55-90 bpm] 75 bpm (11/04/20 4:21 PM) Blood Pressure [90-138/55-84 mm Hg] 184/ 95mm Hg *H* (11/04/20 4:21 PM) Temperature [96.8-100.4 DegF] 98.4 DegF (11/04/20 4:21 PM) Mode of Delivery (Oxygen) Room air (11/04/20 4:21 PM) Blood pressure sites Arm, right (11/04/20 4:21 PM) Social History Social History Type Response Smoking Status Former smoker entered on: 08/26/15 Sex
--- OUTSIDE RECORDS SUMMARY | 2022-10-25 20:00 | XMS_ITS | Continuity of Care Document ---
Author Name Unknown Organization [facility] Address [address] [place] [address]- Care Team Providers Care Speech And Hearing Clinic Director Name Role Phone Roberta Felipe NP Primary Care Physician [phone] Encounter [facility] Date(s): 06/09/20 - 07/09/[address] [address] Allergies, Adverse Reactions, Alerts Substance Reaction [...] Given 1Result Comment: Administered by Dalia Olguin POST GRADUATE INTERN 2Result Comment: incorrect brand entered 3Admin Note: VIS dated 09/13/11 4Admin Note: VIS dated 12/17/08 5Admin Note: VIS dated 04/03/11 Medications apixaban 2.5 mg oral tablet 1 tablet = 2.5 mg, By Mouth, 2 times a day, Transitioning from warfarin to apixaban, # 60 tablet, 11 Refills, Maintenance, 06/24/20 14:40:00 EDT, Tablet, [facility] #[id number], Partial fill upon patient request if the [...] 3 Refills, Maintenance, 05/19/20 14:56:00 EST, Tablet, [facility] #[id number], Partial fill upon patient request if the prescriptionis for a schedule II opioid drug., 160, cm, ... Start Date: 05/19/20 Stop Date: 09/16/20 Status: Ordered lidocaine 4% mucous membrane solution 1 application, Topically, 2 times a day, PRN Pain , Mild, # 1 each, 0 Refills, Maintenance, 05/22/20 16:43:00 EST, [facility] #[id number], Partial fill upon patient request if the prescription is for a schedule II opioid drug., 1 application Topi... Start Date: 05/22/20 Status: Ordered midodrine 5 mg oral tablet 5 mg, 1, tablet, By Mouth, 3 times a day, lower dose tablet, # 90 tablet, Refills 3, Tot. Refills 3, Maintenance, 06/23/20 14:16:00 EDT, Route to Pharmacy Electronically, [facility] #[id number],Partial fill upon patient request if the prescripti... [...] capsule, 0 Refills, Maintenance, 06/23/20 8:58:00 EDT, [facility] #[id number], 160, cm, 05/21/20 9:12:00 EST, Height, 57.86, [...] Myalgia(Confirmed) Active Pre-syncope(Confirmed) Active Orthostatic hypotension(Confirmed) Active *[id number] Care Partn er Tracyyusuf Hurst(Confirmed) Active Pain of right sacroiliac joint(Confirmed) Active Lewy body dementia(Confirmed) Active Tinea cruris(Confirmed) Active Unintentional weight loss(Confirmed) Active Urinary incontinence(Confirmed) Active Vitamin D deficiency(Confirmed) Active Social History Social History Type Response Smoking Status Former smoker entered on: 08/26/15 Sex
--- OUTSIDE RECORDS SUMMARY | 2022-10-25 20:00 | XMS_ITS | Continuity of Care Document ---
Author Name Unknown Organization [facility] Address [address] [place] [address]- Care Team Providers Care Client Service Supervisor Name Role Phone Destinee JIMENEZ, Roberta Merida Primary Care Physician Encounter [facility] [place] Date(s): 04/25/20 - 05/25/[address] [address]- Attending Physician: AdmHiren thomas Admitting Physician: AdmtrHiren Referring Physician: Admtr, [id number] [...] 3 Refills, Maintenance, 05/19/20 14:56:00 EST, Tablet, [facility] #[id number], Partial fill upon patient request if the prescriptionis for a schedule II opioid drug., 160, cm, ... Start Date: 05/19/20 Stop Date: 09/16/20 Status: Ordered lidocaine 4% mucous membrane solution 1 application, Topically, 2 times a day, PRN Pain , Mild, # 1 each, 0 Refills, Maintenance, 05/22/20 16:43:00 EST, [facility] #[id number], Partial fill upon patient request if the [...] capsule, 0 Refills, Maintenance, 04/16/20 14:22:00 EST, [facility] #[id number], 160, cm, 04/16/20 8:39:00 EST, Height, 57.86, [...] 0 Refills, Maintenance, 04/16/20 12:40:00 EST, Tablet, [facility] #[id number], Partial fill upon patient request if the [...] Myalgia(Confirmed) Active Pre-syncope(Confirmed) Active Orthostatic hypotension(Confirmed) Active *[id number] Care Partn er Tracy Hurst(Confirmed) Active Pain of right sacroiliac joint(Confirmed) Active Lewy body dementia(Confirmed) Active Tinea cruris(Confirmed) Active Unintentional weight loss(Confirmed) Active Urinary incontinence(Confirmed) Active Vitamin D deficiency(Confirmed) Active Social History Social History Type Response Smoking Status Former smoker entered on: 08/26/15 Sex
--- OUTSIDE RECORDS SUMMARY | 2022-10-25 20:00 | XMS_ITS | Continuity of Care Document ---
Author Name Unknown Organization [facility] Address [address] [place] [address]- Care Team Providers Care Weekend Anchor Name Role Phone Destinee JIMENEZ, Roberta Merida Primary Care Physician [facility] Date[facility]s): 02/26/20 - 03/27/[address] [address]- Allergies, Adverse Reactions, Alerts Substance Reaction Severity [...] mL, 11 Refills, Maintenance, 10/03/19 11:19:00 EDT, [facility] #[id number], 1 drops Eyes, Both 3 times a [...] mL, 3 Refills, Maintenance, 10/04/19 11:21:00 EDT, [facility] #[id number], 30, 15 mL By Mouth Daily,PRN: NEEDED FOR CONSTIPATION, 160, cm, 03/22/19 15:22:00 EST, Height Start Date: 10/04/19 Status: Ordered levothyroxine 75 mcg (0.075 mg) oral tablet 1 tablet = 75 mcg, By Mouth, Daily, increase in dose, # 90 tablet, 1 Refills, Maintenance, 11/07/2009:50:00 EDT, Tablet, [facility] #[id number], 160, cm, 03/22/19 15:22:00 EST, Height Start Date: 11/08/19 Stop Date: 11/02/20 Status: Ordered midodrine 10 mg oral tablet 0.5 tablet = 5 mg, By Mouth, 3 times a day, # 45 tablet, 5 Refills, Maintenance, 03/27/20 10:17:00 EST, Tablet, [facility] #[id number], Partial fill upon patient request if the prescription is for a schedule II opioid drug., 160, cm, 03/13/20 8:2... Start Date: 03/27/20 Stop Date: 09/23/20 Status: Ordered omeprazole 40 mg oral enteric coated capsule 1 capsule, By Mouth, Daily, # 90 capsule, 1 Refills, Maintenance, 11/23/19 15:26:00 EDT, [facility] #[id number], 160, cm, 03/22/19 15:22:00 EST, Height Start [...] Maintenance,03/27/20 10:16:00 EST, Route to Pharmacy Electronically, [facility] #[id number], Partial fill upon patient request if the prescription is for a sc... Start Date: 03/27/20 Stop Date: 07/25/20 Status: Ordered warfarin 2.5 mg oral tablet 1 tablet, By Mouth, Daily, DIRECTED BY NURSE BASED ON INR RESULTS., # 30 tablet, 11 Refills, Maintenance, 09/18/19 16:11:00 EDT, [facility] #[id number], 160, cm, 03/22/19 15:22:00 EST, Height Start [...] Myalgia(Confirmed) Active Pre-syncope(Confirmed) Active Orthostatic hypotension(Confirmed) Active *[phone] Care Partn er Tracy Lagosan(Confirmed) Active Pain of right sacroiliac joint(Confirmed) Active Lewy body dementia(Confirmed) Active Tinea cruris(Confirmed) Active Unintentional weight loss(Confirmed) Active Urinary incontinence(Confirmed) Active Vitamin D deficiency(Confirmed) Active Social History Social History Type Response Smoking Status Former smoker entered on: 08/26/15 Sex
--- OUTSIDE RECORDS SUMMARY | 2022-10-25 20:00 | XMS_ITS | Continuity of Care Document ---
Author Name Unknown Organization [facility] Address [address] [place] [address]- Care Team Providers Care Internal Medicine Specialist Name Role Phone Roberta Felipe NP Primary Care Physician [facility] Date(s): 05/21/20 - 06/20/[address] [address]- Allergies, Adverse Reactions, Alerts Substance Reaction Severity [...] 3 Refills, Maintenance, 05/19/20 14:56:00 EST, Tablet, [facility] #[id number], Partial fill upon patient request if the prescriptionis for a schedule II opioid drug., 160, cm, ... Start Date: 05/19/20 Stop Date: 09/16/20 Status: Ordered lidocaine 4% mucous membrane solution 1 application, Topically, 2 times a day, PRN Pain , Mild, # 1 each, 0 Refills, Maintenance, 05/22/20 16:43:00 EST, [facility] #[id number], Partial fill upon patient request if the [...] capsule, 0 Refills, Maintenance, 04/16/20 14:22:00 EST, [facility] #[id number], 160, cm, 04/16/20 8:39:00 EST, Height, 57.86, [...] each, 11 Refills, Maintenance, 06/03/20 14:11:00 EDT, [facility] #[id number], Partial fill upon patient request if the [...] Myalgia(Confirmed) Active Pre-syncope(Confirmed) Active Orthostatic hypotension(Confirmed) Active *[id number] Care Partn er Tracy Hurst(Confirmed) Active Pain of right sacroiliac joint(Confirmed) Active Lewy body dementia(Confirmed) Active Tinea cruris(Confirmed) Active Unintentional weight loss(Confirmed) Active Urinary incontinence(Confirmed) Active Vitamin D deficiency(Confirmed) Active Social History Social History Type Response Smoking Status Former smoker entered on: 08/26/15 Sex
--- OUTSIDE RECORDS SUMMARY | 2022-10-25 20:01 | XMS_ITS | Continuity of Care Document ---
Author Name Unknown Organization [facility] Address [address] [place] [address]- Care Team Providers Care Winding Department Supervisor Name Role Phone Destinee JIMENEZ, Roberta Merida Primary Care Physician [phone] Encounter [facility] Date(s): 01/26/22 - 02/25/[address] [address]- Allergies, Adverse Reactions, Alerts Substance Reaction Severity Status penicillin rash Active Immunizations Given and Recorded Vaccine Date Status Refusal Reason SARS-CoV-2 mRNA ([id number]) vax 06/19/21 Given influenza virus vaccine, inactivated [...] 09/13/11 3Result Comment: Administered by Dalia Olguin [employer] 4Admin Note: VIS dated 12/17/08 5Admin Note: VIS dated 04/03/11 Medications Artificial Tears preserved solution 1 drops, Eyes, Both, 4 times a day, PRN Dry Eyes, # 10 mL, 11 Refills, Maintenance, 01/26/22 14:13:00 EST, Ophth Solution, [facility] #[id number], Partial fill upon patient request if the [...] tablet, 5 Refills, Maintenance, 10/26/21 14:08:00 EDT, [facility] #[id number], Please print in greek, 160, cm, 08/27/21 13:11:00 EDT, Height, 57.86, [...] 01/26/22 14:13:00 EST, Route to Pharmacy Electronically, [facility][id number], Partial fill upon patient request if the pr... Start Date: 01/26/22 Status: Ordered Eucerin Eczema Relief topical cream 1 application, Topically, 2 times a day, # 240 Gm, 5 Refills, Maintenance, 01/15/21 16:05:00 EDT, [facility] #[id number], Partial fill upon patient request if the prescription is for a schedule II opioid drug., 1 application Topically 2 times a d... Start Date: 01/15/21 Status: Ordered guaiFENesin 400 mg oral tablet 1 tablet = 400 mg, By Mouth, Every 4 hours, PRN as needed for congestion and cough, # 30 tablet, 1 Refills, Maintenance, 08/27/21 13:40:00 EDT, Tablet, [facility] #[id number], Partial fill upon patient request if the [...] 2 Refills, Maintenance, 08/17/21 13:14:00 EDT, Syrup, [facility] #[id number], 15 mL By Mouth Daily,PRN:as needed for [...] 5 Refills, Maintenance, 10/26/21 14:08:00 EDT, Tablet, [facility] #[id number], Partial fill upon patient request if the prescription is for a schedule II opioid drug., 160, cm, 08/27/21 13:... Start Date: 10/26/21 Status: Ordered levothyroxine 75 mcg (0.075 mg) oral tablet 1 tablet = 75 mcg, By Mouth, Daily, TK 1 T PO D, # 90 tablet, 1 Refills, Maintenance, 11/23/21 16:42:00 EDT, [facility] #[id number], Partial fill upon patient request if the prescriptionis for a schedule II opioid drug., 160, cm, ... Start Date: 11/23/21 Status: Ordered lidocaine 4% mucous membrane solution 1 application, Topically, 2 times a day, PRN Pain , Mild, # 1 each, 0 Refills, Maintenance, 05/22/20 16:43:00 EST, [facility] #58606, Partial fill upon patient request if the prescription is for a schedule II opioid drug., 1 application Topi... Start Date: 05/22/20 Status: Ordered midodrine 5 mg oral tablet 1, tablet, By Mouth, 3 times a day, # 90 tablet, Refills 3, Tot. Refills 3, Maintenance, 10/27/21 15:24:00 EDT, Route to Pharmacy Electronically, [facility] #[id number], 160, cm, 08/27/21 13:11:00 EDT, Height, 57.86, [...] 90 capsule, 1 Refills, 11/23/21 16:42:00 EDT, [facility] #[id number], 160, cm, 08/27/21 13:11:00 EDT, Height, 57.86, kg, 04/12/20 23:44:00 EST, Dry Weight Start Date: 11/23/21 Status: Ordered traZODone 50 mg oral tablet 2, tablet, By Mouth, Daily at bedtime, # 60 tablet, Refills 2, Route to Pharmacy Electronically, [facility] #[id number], 160, cm, 11/04/20 11:39:00 EDT, Height, 57.86, [...] R32, 05/15/21 16:36:00 EST, Supply Start Date: 3/4/22 Status: Ordered Problem List Condition Confirmation Course [...] Pre-syncope Confirmed Active Orthostatic hypotension Confirmed Active *[id number] Roll Reclaimer Juliette Rand Confirmed Active Pain of right sacroiliac joint Confirmed Active Seizures Confirmed Active Lewy body dementia Confirmed Active Tinea cruris Confirmed Active Unintentional weight loss Confirmed Active Urinary incontinence Confirmed Active Vitamin D deficiency Confirmed Active Social History Social History Type Response Smoking Status Former smoker entered on: 08/26/15 Sex Patient Care team information Care Team Personnel Name: Matilde Mahmood RN Position: [facility] RN Member Role: Primary Care Nurse Name: Roberta Felipe NP Position: [facility] PCO Associate Professional Member Role: PCP Address: Address: [address] [place] [address] Name: ALESSANDRO VILLATORO RN Position: [facility] RN Member Role: Primary Care Nurse Name: Lilo Maldonado RN Position: [facility] RN Member Role: Primary Care Nurse Name: Anuj Murillo RN Position: [facility] RN Member Role: Primary Care Nurse Name: Jasmin Oliva Position: [facility] Outreach Member Role: Lifetime Consulting Physician Name: Suzanne Celeste RN Position: [facility] RN Member Role: Primary Care Nurse Name: Lily Solis RN Position: [facility] Onco RN Member Role: Primary Care Nurse Name: Adela Tadeo RN Position: [facility] RN Member Role: Primary Care Nurse Name: Maci Jones RN Position: [facility] RN Member Role: Primary Care Nurse Name: Nancy Morrow RN Position: [facility] RN Member Role: Primary Care Nurse Name: Etta Dewitt RN Position: [facility] RN Member Role: Primary Care Nurse Care Team Related Persons Name: ORQUIDEA JESSIKA Address: home [address] [place] [address] Name: JESSICA JOSUE Address: home [address] [place] [address] Name: CARLOS CEJA Address: home [address] [place] [id number]
--- OUTSIDE RECORDS SUMMARY | 2022-10-25 20:01 | XMS_ITS | Continuity of Care Document ---
Author Name Unknown Organization [facility] Address [address] [place] [address]- Care Team Providers Care Wildlife Biologist Name Role Phone Roberta Felipe NP Primary Care Physician [phone] [facility] Date[facility]s): 06/17/20 - 07/17/[address] [address] Allergies, Adverse Reactions, Alerts Substance Reaction [...] Given 1Result Comment: Administered by Dalia Olguin TRUCKER HAND 2Result Comment: incorrect brand entered 3Admin Note: VIS dated 09/13/11 4Admin Note: VIS dated 12/17/08 5Admin Note: VIS dated 04/03/11 Medications apixaban 2.5 mg oral tablet 1 tablet = 2.5 mg, By Mouth, 2 times a day, Transitioning from warfarin to apixaban, # 60 tablet, 11 Refills, Maintenance, 06/24/20 14:40:00 EDT, Tablet, [facility] #[id number], Partial fill upon patient request if the [...] 3 Refills, Maintenance, 05/19/20 14:56:00 EST, Tablet, [facility] #[id number], Partial fill upon patient request if the prescriptionis for a schedule II opioid drug., 160, cm, ... Start Date: 05/19/20 Stop Date: 09/16/20 Status: Ordered lidocaine 4% mucous membrane solution 1 application, Topically, 2 times a day, PRN Pain , Mild, # 1 each, 0 Refills, Maintenance, 05/22/20 16:43:00 EST, [facility] #[id number], Partial fill upon patient request if the prescription is for a schedule II opioid drug., 1 application Topi... Start Date: 05/22/20 Status: Ordered midodrine 5 mg oral tablet 5 mg, 1, tablet, By Mouth, 3 times a day, lower dose tablet, # 90 tablet, Refills 3, Tot. Refills 3, Maintenance, 06/23/20 14:16:00 EDT, Route to Pharmacy Electronically, [facility] #[id number],Partial fill upon patient request if the prescripti... [...] capsule, 0 Refills, Maintenance, 06/23/20 8:58:00 EDT, [facility] #[id number], 160, cm, 05/21/20 9:12:00 EST, Height, 57.86, kg, 04/12/20 23:44:00 EST, Dry Weight Start Date: 06/23/20 Status: Ordered traZODone 50 mg oral tablet 2, tablet, By Mouth, Daily at bedtime, # 60 tablet, Refills 3, Tot. Refills 0, Maintenance, 07/15/20 10:03:00 EDT, Route to Pharmacy Electronically, [facility] #[id number], 160, cm, 05/21/20 9:12:00 EST, Height, 57.86, [...] Myalgia(Confirmed) Active Pre-syncope(Confirmed) Active Orthostatic hypotension(Confirmed) Active *[id number] Care Partn er Tracy Hurst(Confirmed) Active Pain of right sacroiliac joint(Confirmed) Active Lewy body dementia(Confirmed) Active Tinea cruris(Confirmed) Active Unintentional weight loss(Confirmed) Active Urinary incontinence(Confirmed) Active Vitamin D deficiency(Confirmed) Active Social History Social History Type Response Smoking Status Former smoker entered on: 08/26/15 Sex
--- OUTSIDE RECORDS SUMMARY | 2022-10-25 20:01 | XMS_ITS | Continuity of Care Document ---
Author Name Unknown Organization [facility] Address [address] [place] [address]- Care Team Providers Care Steel Box Toe Inserter Name Role Phone Roberta Felipe NP Primary Care Physician [facility] Date(s): 12/19/20 - 01/18/[address] [address] Allergies, Adverse Reactions, [...] Refills, Maintenance, 11/06/20 13:04:00 EDT, Ophth Solution, [facility] #[id number], Partial fill upon patient request if the [...] tablet, 5 Refills, Maintenance, 11/20/20 11:43:00 EDT, [facility] #[id number], Please print in cuban, 160, cm, 11/04/20 11:39:00 EDT, Height, 57.86, [...] Gm, 5 Refills, Maintenance, 01/15/21 16:05:00 EDT, [facility] #[id number], Partial fill upon patient request if the [...] 2 Refills, Maintenance, 11/06/20 13:03:00 EDT, Syrup, [facility] #[id number], Partial fill upon patient request if the [...] day, # 60 tablet, 3 Refills, Maintenance, 12/29/20 15:18:00 EDT, [facility] #[id number], Partial fill upon patient request if the prescription is for a schedule II opioid drug., 160, cm, 11/04/20 11:... Start Date: 12/29/20 Status: Ordered levothyroxine 75 mcg (0.075 mg) oral tablet 1 tablet = 75 mcg, By Mouth, Daily, TK 1 T PO D, # 90 tablet, 1 Refills, Maintenance, 09/16/20 14:56:00 EDT, Tablet, [facility] #[id number], Partial fill upon patient request if the prescriptionis for a schedule II opioid drug., 160, cm, ... Start Date: 09/16/20 Stop Date: 01/14/21 Status: Ordered lidocaine 4% mucous membrane solution 1 application, Topically, 2 times a day, PRN Pain , Mild, # 1 each, 0 Refills, Maintenance, 05/22/20 16:43:00 EST, [facility] #[id number], Partial fill upon patient request if the prescription is for a schedule II opioid drug., 1 application Topi... Start Date: 05/22/20 Status: Ordered midodrine 5 mg oral tablet 1, tablet, By Mouth, 3 times a day, # 90 tablet, Refills 3, Tot. Refills 0, Maintenance, 10/22/20 13:38:00 EDT, Route to Pharmacy Electronically, [facility] #[id number], 160, cm, 09/26/20 14:49:00 EDT, Height, 57.86, kg, 04/12/20 23:44:00 EST, Start Date: 10/22/20 Status: Ordered Nutritional Supplements See Instructions, # 90 each, Refills 11, Tot. Refills 11, Maintenance, Resent 1.5 kcal/ml, 237 ml q8 hrs by mouth, 12/29/20 8:39:00 EDT, Supply, 160, cm, 11/04/20 11:39:00 EDT, Height, 57.86, kg, 04/12/20 23:44:00 EST, Dry Weight Start Date: 12/29/20 Status: Ordered omeprazole 40 mg oral enteric coated capsule 1 capsule, By Mouth, Daily, # 90 capsule, 0 Refills, [facility] #[id number], 160, cm, 11/04/2110:39:00 EDT, Height, 57.86, kg, 04/12/20 23:44:00 EST, Dry Weight Start Date: 11/27/20 Status: Ordered traZODone 50 mg oral tablet 2, tablet, By Mouth, Daily at bedtime, # 60 tablet, Refills 2, Route to Pharmacy Electronically, [facility] #[id number], 160, cm, 11/04/20 11:39:00 EDT, Height, 57.86, [...] Myalgia(Confirmed) Active Pre-syncope(Confirmed) Active Orthostatic hypotension(Confirmed) Active *[id number] Care Partn er Tracy Lagosan(Confirmed) Active Pain of right sacroiliac joint(Confirmed) Active Lewy body dementia(Confirmed) Active Tinea cruris(Confirmed) Active Unintentional weight loss(Confirmed) Active Urinary incontinence(Confirmed) Active Vitamin D deficiency(Confirmed) Active Social History Social History Type Response Smoking Status Former smoker entered on: 08/26/15 Sex
--- OUTSIDE RECORDS SUMMARY | 2022-10-25 20:01 | XMS_ITS | Continuity of Care Document ---
Author Name Unknown Organization [facility] Address [address] [place] [address]- Care Team Providers Care Plastic Extruding Machine Operator Name Role Phone Destinee JIMENEZ, Roberta Merdia Primary Care Physician [facility] Date(s): 11/16/19 - 12/16/[address] [address]- [facility] Allergies, Adverse Reactions, Alerts Substance [...] mL, 11 Refills, Maintenance, 10/03/19 11:19:00 EDT, [facility] #[id number], 1 drops Eyes, Both 3 times a [...] mL, 3 Refills, Maintenance, 10/04/19 11:21:00 EDT, [facility] #[id number], 30, 15 mL By Mouth Daily,PRN: NEEDED FOR CONSTIPATION, 160, cm, 03/22/19 15:22:00 EST, Height Start Date: 10/04/19 Status: Ordered levothyroxine 75 mcg (0.075 mg) oral tablet 1 tablet = 75 mcg, By Mouth, Daily, increase in dose, # 90 tablet, 1 Refills, Maintenance, 11/07/2009:50:00 EDT, Tablet, [facility] #[id number], 160, cm, 03/22/19 15:22:00 EST, Height Start [...] capsule, 1 Refills, Maintenance, 11/23/19 15:26:00 EDT, [facility] #[id number], 160, cm, 03/22/19 15:22:00 EST, Height Start Date: 11/23/19 Status: Ordered warfarin 2.5 mg oral tablet 1 tablet, By Mouth, Daily, DIRECTED BY NURSE BASED ON INR RESULTS., # 30 tablet, 11 Refills, Maintenance, 09/18/19 16:11:00 EDT, [facility] #[id number], 160, cm, 03/22/19 15:22:00 EST, Height Start [...] back pain(Confirmed) Active Hypotension(Confirmed) Active Myalgia(Confirmed) Active *[id number]-[facility] Partn jeramie Mcfarland(Confirmed) Active Pain of right sacroiliac joint(Confirmed) Active Lewy body dementia(Confirmed) Active Tinea cruris(Confirmed) Active Urinary incontinence(Confirmed) Active Vitamin D deficiency(Confirmed) Active Social History Social History Type Response Smoking Status Former smoker entered on: 08/26/15 Sex
--- OUTSIDE RECORDS SUMMARY | 2022-10-25 20:01 | XMS_ITS | Continuity of Care Document ---
Author Name Unknown Organization [facility] Address [address] [place] [address]- Care Team Providers Care Tube Lancer Name Role Phone Roberta Felipe NP Primary Care Physician [facility] Date(s): 06/11/20 - 07/11/[address] [address]- Allergies, Adverse Reactions, Alerts Substance Reaction Severity [...] Given 1Result Comment: Administered by Dalia Olguin CREATIVE WRITING ENGLISH PROFESSOR 2Result Comment: incorrect brand entered 3Admin Note: VIS dated 09/13/11 4Admin Note: VIS dated 12/17/08 5Admin Note: VIS dated 04/03/11 Medications apixaban 2.5 mg oral tablet 1 tablet = 2.5 mg, By Mouth, 2 times a day, Transitioning from warfarin to apixaban, # 60 tablet, 11 Refills, Maintenance, 06/24/20 14:40:00 EDT, Tablet, [facility] #[id number], Partial fill upon patient request if the [...] 3 Refills, Maintenance, 05/19/20 14:56:00 EST, Tablet, [facility] #[id number], Partial fill upon patient request if the prescriptionis for a schedule II opioid drug., 160, cm, ... Start Date: 05/19/20 Stop Date: 09/16/20 Status: Ordered lidocaine 4% mucous membrane solution 1 application, Topically, 2 times a day, PRN Pain , Mild, # 1 each, 0 Refills, Maintenance, 05/22/20 16:43:00 EST, [facility] #[id number], Partial fill upon patient request if the prescription is for a schedule II opioid drug., 1 application Topi... Start Date: 05/22/20 Status: Ordered midodrine 5 mg oral tablet 5 mg, 1, tablet, By Mouth, 3 times a day, lower dose tablet, # 90 tablet, Refills 3, Tot. Refills 3, Maintenance, 06/23/20 14:16:00 EDT, Route to Pharmacy Electronically, [facility] #[id number],Partial fill upon patient request if the prescripti... [...] capsule, 0 Refills, Maintenance, 06/23/20 8:58:00 EDT, [facility] #[id number], 160, cm, 05/21/20 9:12:00 EST, Height, 57.86, [...] Myalgia(Confirmed) Active Pre-syncope(Confirmed) Active Orthostatic hypotension(Confirmed) Active *[id number] Care Partn er Tracyyusuf Hurst(Confirmed) Active Pain of right sacroiliac joint(Confirmed) Active Lewy body dementia(Confirmed) Active Tinea cruris(Confirmed) Active Unintentional weight loss(Confirmed) Active Urinary incontinence(Confirmed) Active Vitamin D deficiency(Confirmed) Active Social History Social History Type Response Smoking Status Former smoker entered on: 08/26/15 Sex
--- OUTSIDE RECORDS SUMMARY | 2022-10-25 20:01 | XMS_ITS | Continuity of Care Document ---
Author Name Unknown Organization [facility] Address Unknown Care Team Providers Care Wool Grader Name Role Phone Roberta Felipe NP Primary Care Physician [phone] [facility] Date(s): 05/05/21 - 06/04/21 [facility] Attending Physician: Hiren Blackburn Admitting Physician: Hiren Blackburn Referring Physician: Hiren Blackburn Allergies, Adverse Reactions, Alerts Substance Reaction Severity [...] Refills, Maintenance, 11/06/20 13:04:00 EDT, Ophth Solution, [facility] #[id number], Partial fill upon patient request if the [...] tablet, 5 Refills, Maintenance, 11/20/20 11:43:00 EDT, [facility] #[id number], Please print in hungarian, 160, cm, 11/04/20 11:39:00 EDT, Height, 57.86, [...] Gm, 5 Refills, Maintenance, 01/15/21 16:05:00 EDT, [facility] #[id number], Partial fill upon patient request if the [...] 2 Refills, Maintenance, 11/06/20 13:03:00 EDT, Syrup, [facility] #[id number], Partial fill upon patient request if the [...] tablet, 3 Refills, Maintenance, 02/20/21 12:51:00 EST, [facility][id number], Partial fill upon patient request if the prescription is for a schedule II opioid drug., 160, cm, 01/15/21 14:... Start Date: 02/20/21 Status: Ordered levothyroxine 75 mcg (0.075 mg) oral tablet 1 tablet = 75 mcg, By Mouth, Daily, TK 1 T PO D, # 90 tablet, 1 Refills, Maintenance, 02/19/21 13:28:00 EST, [facility][id number], Partial fill upon patient request if the prescriptionis for a schedule II opioid drug., 160, cm, ... Start Date: 02/19/21 Status: Ordered lidocaine 4% mucous membrane solution 1 application, Topically, 2 times a day, PRN Pain , Mild, # 1 each, 0 Refills, Maintenance, 05/22/20 16:43:00 EST, [facility] #[id number], Partial fill upon patient request if the prescription is for a schedule II opioid drug., 1 application Topi... Start Date: 05/22/20 Status: Ordered midodrine 5 mg oral tablet 1, tablet, By Mouth, 3 times a day, # 90 tablet, Refills 3, Tot. Refills 0, Maintenance, 10/22/20 13:38:00 EDT, Route to Pharmacy Electronically, [facility] #[id number], 160, cm, 09/26/20 14:49:00 EDT, Height, 57.86, [...] 90 capsule, 0 Refills, 05/28/21 14:21:00 EDT, [facility] #[id number], 160, cm, 01/15/21 14:39:00 EDT, Height, 57.86, kg, 04/12/20 23:44:00 EST, Dry Weight Start Date: 05/28/21 Status: Ordered traZODone 50 mg oral tablet 2, tablet, By Mouth, Daily at bedtime, # 60 tablet, Refills 2, Route to Pharmacy Electronically, [facility] #[id number], 160, cm, 11/04/20 11:39:00 EDT, Height, 57.86, [...] Myalgia(Confirmed) Active Pre-syncope(Confirmed) Active Orthostatic hypotension(Confirmed) Active *[id number] Care Partn er Tracy Hurst(Confirmed) Active Pain of right sacroiliac joint(Confirmed) Active Lewy body dementia(Confirmed) Active Tinea cruris(Confirmed) Active Unintentional weight loss(Confirmed) Active Urinary incontinence(Confirmed) Active Vitamin D deficiency(Confirmed) Active Social History Social History Type Response Smoking Status Former smoker entered on: 08/26/15 Sex
--- OUTSIDE RECORDS SUMMARY | 2022-10-25 20:01 | XMS_ITS | Continuity of Care Document ---
Author Name Unknown Organization [facility] Address [address] [place] [address]- Care Team Providers Care Senior Game Advisor Name Role Phone Destinee JIMENEZ, Roberta Merida Primary Care Physician Encounter [facility] [place] Date(s): 11/08/19 - 12/08/[address] [address]- [facility] Allergies, Adverse Reactions, Alerts Substance Reaction [...] mL, 11 Refills, Maintenance, 10/03/19 11:19:00 EDT, [facility] #[id number], 1 drops Eyes, Both 3 times a [...] mL, 3 Refills, Maintenance, 10/04/19 11:21:00 EDT, [facility] #[id number], 30, 15 mL By Mouth Daily,PRN: NEEDED FOR CONSTIPATION, 160, cm, 03/22/19 15:22:00 EST, Height Start Date: 10/04/19 Status: Ordered levothyroxine 75 mcg (0.075 mg) oral tablet 1 tablet = 75 mcg, By Mouth, Daily, increase in dose, # 90 tablet, 1 Refills, Maintenance, 11/07/2009:50:00 EDT, Tablet, [facility] #[id number], 160, cm, 03/22/19 15:22:00 EST, Height Start [...] capsule, 1 Refills, Maintenance, 11/23/19 15:26:00 EDT, [facility] #[id number], 160, cm, 03/22/19 15:22:00 EST, Height Start Date: 11/23/19 Status: Ordered warfarin 2.5 mg oral tablet 1 tablet, By Mouth, Daily, DIRECTED BY NURSE BASED ON INR RESULTS., # 30 tablet, 11 Refills, Maintenance, 09/18/19 16:11:00 EDT, [facility] #54624, 160, cm, 03/22/19 15:22:00 EST, Height Start [...] back pain(Confirmed) Active Hypotension(Confirmed) Active Myalgia(Confirmed) Active *[id number]-[facility] Partn christie- Vimal Mcfarland(Confirmed) Active Pain of right sacroiliac joint(Confirmed) Active Lewy body dementia(Confirmed) Active Tinea cruris(Confirmed) Active Urinary incontinence(Confirmed) Active Vitamin D deficiency(Confirmed) Active Social History Social History Type Response Smoking Status Former smoker entered on: 08/26/15 Sex
--- OUTSIDE RECORDS SUMMARY | 2022-10-25 20:01 | XMS_ITS | Continuity of Care Document ---
Author Name Unknown Organization [facility] Address [address] [place] [address]- Care Team Providers Care Machine Plate Stacker Name Role Phone Destinee JIMENEZ, Roberta Merida Primary Care Physician Encounter [facility] [place] [facility] [id number] Date(s): 09/11/21 - 10/11/[address] [address]- Attending Physician: Hiren Blackburn Admitting Physician: Hiren Blackburn Referring Physician: AdmtrHiren Allergies, Adverse Reactions, Alerts Substance Reaction Severity Status penicillin rash Active Immunizations Given and Recorded Vaccine Date Status Refusal Reason SARS-CoV-2 mRNA ([id number]) vax 06/19/21 Given influenza virus vaccine, inactivated [...] 09/13/11 3Result Comment: Administered by Dalia Olguin BOX OFFICE CLERK 4Admin Note: VIS dated 12/17/08 5Admin Note: VIS dated 04/03/11 Medications Artificial Tears preserved solution 1 drops, Eyes, Both, 4 times a day, PRN Dry Eyes, # 10 mL, 11 Refills, Maintenance, 11/06/20 13:04:00 EDT, Ophth Solution, [facility] #[id number], Partial fill upon patient request if the [...] tablet, 5 Refills, Maintenance, 11/20/20 11:43:00 EDT, [facility] #75061, Please print in greenlandic, 160, cm, 11/04/20 11:39:00 EDT, Height, 57.86, [...] Gm, 5 Refills, Maintenance, 01/15/21 16:05:00 EDT, [facility] #67494, Partial fill upon patient request if the prescription is for a schedule II opioid drug., 1 application Topically 2 times a d... Start Date: 01/15/21 Status: Ordered guaiFENesin 400 mg oral tablet 1 tablet = 400 mg, By Mouth, Every 4 hours, PRN as needed for congestion and cough, # 30 tablet, 1 Refills, Maintenance, 08/27/21 13:40:00 EDT, Tablet, [facility] #57690, Partial fill upon patient request if the [...] 2 Refills, Maintenance, 08/17/21 13:14:00 EDT, Syrup, [facility] #83617, 15 mL By Mouth Daily,PRN:as needed for [...] 3 Refills, Maintenance, 02/20/21 12:51:00 EST, Tablet, [facility] #08395, Partial fill upon patient request if the prescription is for a schedule II opioid drug., 160, cm, 01/15/21 14:... Start Date: 02/20/21 Status: Ordered levothyroxine 75 mcg (0.075 mg) oral tablet 1 tablet = 75 mcg, By Mouth, Daily, TK 1 T PO D, # 90 tablet, 1 Refills, Maintenance, 02/19/21 13:28:00 EST, Tablet, [facility] #[id number], Partial fill upon patient request if the prescriptionis for a schedule II opioid drug., 160, cm, ... Start Date: 02/19/21 Status: Ordered lidocaine 4% mucous membrane solution 1 application, Topically, 2 times a day, PRN Pain , Mild, # 1 each, 0 Refills, Maintenance, 05/22/20 16:43:00 EST, [facility] #09606, Partial fill upon patient request if the prescription is for a schedule II opioid drug., 1 application Topi... Start Date: 05/22/20 Status: Ordered midodrine 5 mg oral tablet 1, tablet, By Mouth, 3 times a day, # 90 tablet, Refills 3, Tot. Refills 0, Maintenance, 10/22/20 13:38:00 EDT, Route to Pharmacy Electronically, [facility] #[id number], 160, cm, 09/26/20 14:49:00 EDT, Height, 57.86, [...] 90 capsule, 0 Refills, 09/02/21 13:12:00 EDT, [facility] #30077, 160, cm, 08/27/21 13:11:00 EDT, Height, 57.86, kg, 04/12/20 23:44:00 EST, Dry Weight Start Date: 09/02/21 Status: Ordered traZODone 50 mg oral tablet 2, tablet, By Mouth, Daily at bedtime, # 60 tablet, Refills 2, Route to Pharmacy Electronically, [facility] #06541, 160, cm, 11/04/20 11:39:00 EDT, Height, 57.86, [...] Myalgia(Confirmed) Active Pre-syncope(Confirmed) Active Orthostatic hypotension(Confirmed) Active *[id number] Care Partn er Tracy Hurst(Confirmed) Active Pain of right sacroiliac joint(Confirmed) Active Seizures(Confirmed) Active Lewy body dementia(Confirmed) Active Tinea cruris(Confirmed) Active Unintentional weight loss(Confirmed) Active Urinary incontinence(Confirmed) Active Vitamin D deficiency(Confirmed) Active Social History Social History Type Response Smoking Status Former smoker entered on: 08/26/15 Sex
--- OUTSIDE RECORDS SUMMARY | 2022-10-25 20:01 | XMS_ITS | Continuity of Care Document ---
Author Name Unknown Organization [facility] Address [address] [place] [address]- Care Team Providers Care Fund Director Name Role Phone Destinee JIMENEZ, Roberta Merida Primary Care Physician [phone] Encounter [facility] Date(s): 03/18/20 - 04/17/[address] [address]- Allergies, Adverse Reactions, Alerts Substance Reaction Severity [...] capsule, 0 Refills, Maintenance, 04/16/20 14:22:00 EST, [facility] #[id number], 160, cm, 04/16/20 8:39:00 EST, Height, 57.86, kg, 04/12/20 23:44:00 EST, Dry Weight Start Date: 04/16/20 Status: Ordered traZODone 50 mg oral tablet TAKE 2 TABLETS BY MOUTH DAILY AT BEDTIME Start Date: 04/12/20 Status: Ordered warfarin 3 mg oral tablet 1 tablet = 3 mg, By Mouth, Daily, # 30 tablet, 0 Refills, Maintenance, 04/16/20 12:40:00 EST, Tablet, [facility] #[id number], Partial fill upon patient request if the [...] Myalgia(Confirmed) Active Pre-syncope(Confirmed) Active Orthostatic hypotension(Confirmed) Active *[id number] Care Partn er Tracy Lagosan(Confirmed) Active Pain of right sacroiliac joint(Confirmed) Active Lewy body dementia(Confirmed) Active Tinea cruris(Confirmed) Active Unintentional weight loss(Confirmed) Active Urinary incontinence(Confirmed) Active Vitamin D deficiency(Confirmed) Active Social History Social History Type Response Smoking Status Former smoker entered on: 08/26/15 Sex
--- OUTSIDE RECORDS SUMMARY | 2022-10-25 20:01 | XMS_ITS | Continuity of Care Document ---
Author Name Unknown Organization [facility] Address [address] [facility], [address] Floor, [address] [place] [address]- Care Team Providers Care Swatch Clerk Name Role Phone Roberta Felipe NP Primary Care Physician [place] [facility] [place]/08[place] - 09/07/20 [facility] [address], [address], [address] [place] [id number] Allergies, Adverse Reactions, Alerts Substance Reaction [...] Given 1Result Comment: Administered by Dalia Olguin RIDER TICKET WORKER 2Result Comment: incorrect brand entered 3Admin Note: VIS dated 09/13/11 4Admin Note: VIS dated 12/17/08 5Admin Note: VIS dated 04/03/11 Medications apixaban 2.5 mg oral tablet 1 tablet = 2.5 mg, By Mouth, 2 times a day, Transitioning from warfarin to apixaban, # 60 tablet, 11 Refills, Maintenance, 06/24/20 14:40:00 EDT, Tablet, [facility] #[id number], Partial fill upon patient request if the [...] 2 Refills, Maintenance, 08/08/20 16:52:00 EDT, Tablet, [facility] #30982, Partial fill upon patient request if the [...] 09/16/20 14:56:00 EDT, 05/19/20 14:56:00 EST, Tablet, [facility] #05483, Partial fill upon patient request if the prescription is for a schedule... Start Date: 05/19/20 Stop Date: 09/16/20 Status: Ordered levothyroxine 75 mcg (0.075 mg) oral tablet 1 tablet = 75 mcg, By Mouth, Daily, TK 1 T PO D, # 90 tablet, 1 Refills, Maintenance, 09/16/20 14:56:00 EDT, Tablet, [facility] #94672, Partial fill upon patient request if the prescriptionis for a schedule II opioid drug., 160, cm, ... Start Date: 09/16/20 Stop Date: 01/14/21 Status: Ordered lidocaine 4% mucous membrane solution 1 application, Topically, 2 times a day, PRN Pain , Mild, # 1 each, 0 Refills, Maintenance, 05/22/20 16:43:00 EST, [facility] #50130, Partial fill upon patient request if the prescription is for a schedule II opioid drug., 1 application Topi... Start Date: 05/22/20 Status: Ordered midodrine 5 mg oral tablet 5 mg, 1, tablet, By Mouth, 3 times a day, lower dose tablet, # 90 tablet, Refills 3, Tot. Refills 3, Maintenance, 06/23/20 14:16:00 EDT, Route to Pharmacy Electronically, [facility] #[id number],Partial fill upon patient request if the prescripti... [...] capsule, 0 Refills, Maintenance, 06/23/20 8:58:00 EDT, [facility] #[id number], 160, cm, 05/21/20 9:12:00 EST, Height, 57.86, kg, 04/12/20 23:44:00 EST, Dry Weight Start Date: 06/23/20 Status: Ordered traZODone 50 mg oral tablet 2, tablet, By Mouth, Daily at bedtime, # 60 tablet, Refills 3, Tot. Refills 0, Maintenance, 07/15/20 10:03:00 EDT, Route to Pharmacy Electronically, [facility] #[id number], 160, cm, 05/21/20 9:12:00 EST, Height, 57.86, [...] Myalgia(Confirmed) Active Pre-syncope(Confirmed) Active Orthostatic hypotension(Confirmed) Active *[id number] Care Partn er Tracy Hurst(Confirmed) Active Pain of right sacroiliac joint(Confirmed) Active Lewy body dementia(Confirmed) Active Tinea cruris(Confirmed) Active Unintentional weight loss(Confirmed) Active Urinary incontinence(Confirmed) Active Vitamin D deficiency(Confirmed) Active Social History Social History Type Response Smoking Status Former smoker entered on: 08/26/15 Sex
--- OUTSIDE RECORDS SUMMARY | 2022-10-25 20:01 | XMS_ITS | Continuity of Care Document ---
Author Name Unknown Organization [facility] Address [address] [place] [address]- Care Team Providers Care Whiting Machine Operator Name Role Phone Destinee JIMENEZ, Roberta Merida Primary Care Physician Encounter [facility] [place] Date(s): 07/01/22 - 07/31/[address] [address]- Allergies, Adverse Reactions, Alerts Substance Reaction Severity Status penicillin rash Active Immunizations Given and Recorded Vaccine Date Status Refusal Reason [id number] 12y+ bivalent booster vax 03/05/22 Given influenza [...] influenza virus vaccine, inactivated 1 01/04/14 Gi advonte influenza virus vaccine, inactivated 12/13/12 Give n influenza virus vaccine, inactivated 2 05/31/12 [facility] SARS-CoV-2 mRNA (micawee-rvzy-beodf) vax 06/19/21 Given SARS-CoV-2 (COVID-19) mRNA BNT-162b2 vac 05/17/20 Given SARS-CoV-2 (COVID-19) mRNA BNT-162b2 vac 3 04/26/20 Given pneumococcal 13-valent vaccine 08/31/16 Given pneumococcal 23-valent vaccine 4 05/31/12 Given tetanus/diphtheria/pertussis, acel(Tdap) 5 3/20/13 Given 1Result Comment: incorrect brand entered 2Admin Note: VIS dated 09/13/11 3Result Comment: Administered by Dalia Olguin WET END SUPERVISOR 4Admin Note: VIS dated 12/17/08 5Admin Note: VIS dated 04/03/11 Medications Artificial Tears preserved solution 1 drops, Eyes, Both, 4 times a day, PRN Dry Eyes, # 10 mL, 11 Refills, Maintenance, 01/26/22 14:13:00 EST, Ophth Solution, [facility] #[id number], Partial fill upon patient request if the [...] tablet, 5 Refills, Maintenance, 10/26/21 14:08:00 EDT, [facility] #57312, Please print in tajik, 160, cm, 08/27/21 13:11:00 EDT, Height, 57.86, [...] Gm, 1 Refills, Maintenance, 06/18/2314:05:00 EDT, Cream, [facility] #02876, Partial fill upon patient request if the prescription is for a schedule II opioid drug., 1 applicatio... Start Date: 06/18/22 Status: Ordered docusate sodium 100 mg oral capsule 100 mg, 1, capsule, By Mouth, 2 times a day, PRN, # 60 capsule, Refills 3, Tot. Refills 3, Maintenance, for constipation, 01/26/22 14:13:00 EST, Route to Pharmacy Electronically, [facility]#06592, Partial fill upon patient request if the pr... Start Date: 01/26/22 Status: Ordered Eucerin Eczema Relief topical cream 1 application, Topically, 2 times a day, # 240 Gm, 5 Refills, Maintenance, 01/15/21 16:05:00 EDT, [facility] #[id number], Partial fill upon patient request if the prescription is for a schedule II opioid drug., 1 application Topically 2 times a d... Start Date: 01/15/21 Status: Ordered guaiFENesin 400 mg oral tablet 1 tablet = 400 mg, By Mouth, Every 4 hours, PRN as needed for congestion and cough, # 30 tablet, 1 Refills, Maintenance, 08/27/21 13:40:00 EDT, Tablet, [facility] #80711, Partial fill upon patient request if the [...] 2 Refills, Maintenance, 08/17/21 13:14:00 EDT, Syrup, [facility] #[id number], 15 mL By Mouth Daily,PRN:as needed for [...] tablet, 5 Refills, Maintenance, 10/26/21 14:08:00 EDT, [facility]387[facility], Partial fill upon patient request if the prescription is for a schedule II opioid drug., 160, cm, 08/27/21 13:... Start Date: 10/26/21 Status: Ordered levothyroxine 75 mcg (0.075 mg) oral tablet 1 tablet = 75 mcg, By Mouth, Daily, TK 1 T PO D, # 90 tablet, 1 Refills, Maintenance, 04/21/22 9:43:00 EST, [facility] #[id number], Partial fill upon patient request if the prescription is for a schedule II opioid drug., 160, cm, 2... Start Date: 04/21/22 Status: Ordered lidocaine 4% mucous membrane solution 1 application, Topically, 2 times a day, PRN Pain , Mild, # 1 each, 0 Refills, Maintenance, 05/22/20 16:43:00 EST, [facility] #39874, Partial fill upon patient request if the prescription is for a schedule II opioid drug., 1 application Topi... Start Date: 05/22/20 Status: Ordered midodrine 5 mg oral tablet 1, tablet, By Mouth, 3 times a day, # 90 tablet, Refills 3, Tot. Refills 3, Maintenance, 10/27/21 15:24:00 EDT, Route to Pharmacy Electronically, [facility] #[id number], 160, cm, 08/27/21 13:11:00 EDT, Height, 57.86, kg, 04/12/20 23:44:00 EST, . Start Date: 10/27/21 Status: Ordered Nutritional Supplements See Instructions, # 90 each, Refills 11, Tot. 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 [id number], G31.83, 07/09/22 17:02:00 EDT, Supply Start Date: 07/09/22 Status: Ordered omeprazole 40 mg oral enteric coated capsule 1 capsule, By Mouth, Daily, # 90 capsule, 1 Refills, 11/23/21 16:42:00 EDT, [facility] #[id number], 160, cm, 08/27/21 13:11:00 EDT, Height, 57.86, [...] 05/03/22 11:14:00 EST, Route to Pharmacy Electronically, [facility] #[id number], 160, cm, 04/19/22 17:27:00 EST, Height Start Date: 05/03/22 Status: Ordered Urinal See Instructions, # 3 each, Refills 0, Tot. Refills 0, Maintenance, Use as needed for urinating. 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 Z74.01, G31.83, 05/22/20 17:15:00 EST, Supply Start Date: 05/22/20 Status: Ordered Washable Molder Inflated Ball Bed Pads Washable Molder Inflated Ball Bed Pads, See Instructions, # 4 each, [...] Pre-syncope Confirmed Active Orthostatic hypotension Confirmed Active *[id number] Airplane Navigator Yi Campos Confirmed Active Pain of right sacroiliac joint Confirmed Active Seizures Confirmed Active Lewy body dementia Confirmed Active Tinea cruris Confirmed Active Unintentional weight loss Confirmed Active Urinary incontinence Confirmed Active Vitamin D deficiency Confirmed Active Social History Social History Type Response Smoking Status Former smoker entered on: 08/26/15 Sex Patient Care team information Care Team Personnel Name: Matilde Mahmood RN Position: [facility] RN Member Role: Primary Care Nurse Name: Roberta Felipe NP Position: [facility] PCO Associate Professional Member Role: PCP Address: Address: [address] [place] [address]- Name: Maci Kruse RN Position: [facility] SN RN Member Role: Primary Care Nurse Name: Lyudmila Ortez RN Position: [facility] RN Member Role: Primary Care Nurse Name: Lilo Maldonado RN Position: [facility] RN Member Role: Primary Care Nurse Name: Anuj Murillo RN Position: [facility] RN Member Role: Primary Care Nurse Name: Jasmin Oliva Position: [facility] Outreach Member Role: Lifetime Consulting Physician Name: Suzanne Celeste RN Position: [facility] RN Member Role: Primary Care Nurse Name: Lily Solis RN Position: [facility] Onco RN Member Role: Primary Care Nurse Name: Adela Tadeo RN Position: [facility] RN Member Role: Primary Care Nurse Name: Nancy Morrow RN Position: [facility] RN Member Role: Primary Care Nurse Name: Etta Dewitt RN Position: [facility] RN Member Role: Primary Care Nurse Care Team Related Persons Name: JESSIKA HEARD Address: [address] [address] Name: JESSICA JOSUE Address: [address] [place] [address] Name: CARLOS CEJA Address: [address] [address]
--- OUTSIDE RECORDS SUMMARY | 2022-10-25 20:01 | XMS_ITS | Continuity of Care Document ---
Author Name Unknown Organization [facility] Address [address] [place] [address]- Care Team Providers Care Office Support Specialist Name Role Phone Roberta Felipe NP Primary Care Physician [phone] Encounter [facility] Date(s): 05/20/20 - 06/19/[address] [address]- Allergies, Adverse Reactions, Alerts Substance Reaction Severity [...] 3 Refills, Maintenance, 05/19/20 14:56:00 EST, Tablet, [facility] #15683, Partial fill upon patient request if the prescriptionis for a schedule II opioid drug., 160, cm, ... Start Date: 05/19/20 Stop Date: 09/16/20 Status: Ordered lidocaine 4% mucous membrane solution 1 application, Topically, 2 times a day, PRN Pain , Mild, # 1 each, 0 Refills, Maintenance, 05/22/20 16:43:00 EST, [facility] #55035, Partial fill upon patient request if the [...] capsule, 0 Refills, Maintenance, 04/16/20 14:22:00 EST, [facility] #[id number], 160, cm, 04/16/20 8:39:00 EST, Height, 57.86, [...] each, 11 Refills, Maintenance, 06/03/20 14:11:00 EDT, [facility] #[id number], Partial fill upon patient request if the [...] Myalgia(Confirmed) Active Pre-syncope(Confirmed) Active Orthostatic hypotension(Confirmed) Active *[id number] Care Partn er Tracy Hurst(Confirmed) Active Pain of right sacroiliac joint(Confirmed) Active Lewy body dementia(Confirmed) Active Tinea cruris(Confirmed) Active Unintentional weight loss(Confirmed) Active Urinary incontinence(Confirmed) Active Vitamin D deficiency(Confirmed) Active Social History Social History Type Response Smoking Status Former smoker entered on: 08/26/15 Sex
--- OUTSIDE RECORDS SUMMARY | 2022-10-25 20:01 | XMS_ITS | Continuity of Care Document ---
Author Name Unknown Organization [facility] Address Unknown Care Team Providers Care Business Investor Name Role Phone Roberta Felipe NP Primary Care Physician [phone] [place] [facility] [place] 11[place]20[place] - 11/27/20 [facility] Attending Physician: Magdalena Hartley MD Referring Physician: Roberta Felipe NP Allergies, [...] Refills, Maintenance, 11/06/20 13:04:00 EDT, Ophth Solution, [facility] #[id number], Partial fill upon patient request if the [...] tablet, 5 Refills, Maintenance, 11/20/20 11:43:00 EDT, [facility] #[id number], Please print in welsh, 160, cm, 11/04/20 11:39:00 EDT, Height, 57.86, [...] 2 Refills, Maintenance, 11/06/20 13:03:00 EDT, Syrup, [facility] #[id number], Partial fill upon patient request if the [...] 6 Refills, Maintenance, 11/20/20 11:42:00 EDT, Tablet, [facility] #[id number], Partial fill upon patient request if the prescription is for a schedule II opioid drug., 160, cm, 11/04/20 11:... Start Date: 11/20/20 Stop Date: 06/18/21 Status: Ordered levothyroxine 75 mcg (0.075 mg) oral tablet 1 tablet = 75 mcg, By Mouth, Daily, TK 1 T PO D, # 90 tablet, 1 Refills, Maintenance, 09/16/20 14:56:00 EDT, Tablet, [facility] #[id number], Partial fill upon patient request if the prescriptionis for a schedule II opioid drug., 160, cm, ... Start Date: 09/16/20 Stop Date: 01/14/21 Status: Ordered lidocaine 4% mucous membrane solution 1 application, Topically, 2 times a day, PRN Pain , Mild, # 1 each, 0 Refills, Maintenance, 05/22/20 16:43:00 EST, [facility] #[id number], Partial fill upon patient request if the prescription is for a schedule II opioid drug., 1 application Topi... Start Date: 05/22/20 Status: Ordered midodrine 5 mg oral tablet 1, tablet, By Mouth, 3 times a day, # 90 tablet, Refills 3, Tot. Refills 0, Maintenance, 10/22/20 13:38:00 EDT, Route to Pharmacy Electronically, [facility] #[id number], 160, cm, 09/26/20 14:49:00 EDT, Height, 57.86, [...] Mouth, Daily, # 90 capsule, 0 Refills, [facility] #[id number], 160, cm, 11/04/2110:39:00 EDT, Height, 57.86, kg, 04/12/20 23:44:00 EST, Dry Weight Start Date: 11/27/20 Status: Ordered traZODone 50 mg oral tablet 2, tablet, By Mouth, Daily at bedtime, # 60 tablet, Refills 2, Route to Pharmacy Electronically, [facility] #[id number], 160, cm, 11/04/20 11:39:00 EDT, Height, 57.86, [...] Myalgia(Confirmed) Active Pre-syncope(Confirmed) Active Orthostatic hypotension(Confirmed) Active *[id number] Care Partn er Tracy Lagosan(Confirmed) Active Pain of right sacroiliac joint(Confirmed) Active Lewy body dementia(Confirmed) Active Tinea cruris(Confirmed) Active Unintentional weight loss(Confirmed) Active Urinary incontinence(Confirmed) Active Vitamin D deficiency(Confirmed) Active Social History Social History Type Response Smoking Status Former smoker entered on: 08/26/15 Sex
--- OUTSIDE RECORDS SUMMARY | 2022-10-25 20:01 | XMS_ITS | Continuity of Care Document ---
Author Name Unknown Organization [facility] Address [address] [place] [address]- Care Team Providers Care Alarm Operator Name Role Phone Destinee JIMENEZ, Roberta Merida Primary Care Physician [facility]counter [facility] Date(s): 07/10/21 - 08/09/[address] [address]- Allergies, Adverse Reactions, Alerts Substance Reaction Severity Status penicillin rash Active Immunizations Given and Recorded Vaccine Date Status Refusal Reason SARS-CoV-2 mRNA ([id number]) vax 06/19/21 Given influenza virus vaccine, inactivated [...] 09/13/11 3Result Comment: Administered by Dalia Sharif TIP SCOURER 4Admin Note: VIS dated 12/17/08 5Admin Note: VIS dated 04/03/11 Medications Artificial Tears preserved solution 1 drops, Eyes, Both, 4 times a day, PRN Dry Eyes, # 10 mL, 11 Refills, Maintenance, 11/06/20 13:04:00 EDT, Ophth Solution, [facility] #[id number], Partial fill upon patient request if the [...] tablet, 5 Refills, Maintenance, 11/20/20 11:43:00 EDT, [facility] #[id number], Please print in djiboutian, 160, cm, 11/04/20 11:39:00 EDT, Height, 57.86, [...] Gm, 5 Refills, Maintenance, 01/15/21 16:05:00 EDT, [facility] #[id number], Partial fill upon patient request if the [...] 2 Refills, Maintenance, 11/06/20 13:03:00 EDT, Syrup, [facility] #[id number], Partial fill upon patient request if the [...] 3 Refills, Maintenance, 02/20/21 12:51:00 EST, Tablet, [facility] #[id number], Partial fill upon patient request if the prescription is for a schedule II opioid drug., 160, cm, 01/15/21 14:... Start Date: 02/20/21 Status: Ordered levothyroxine 75 mcg (0.075 mg) oral tablet 1 tablet = 75 mcg, By Mouth, Daily, TK 1 T PO D, # 90 tablet, 1 Refills, Maintenance, 02/19/21 13:28:00 EST, Tablet, [facility] #[id number], Partial fill upon patient request if the prescriptionis for a schedule II opioid drug., 160, cm, 11/04/... Start Date: 02/19/21 Status: Ordered lidocaine 4% mucous membrane solution 1 application, Topically, 2 times a day, PRN Pain , Mild, # 1 each, 0 Refills, Maintenance, 05/22/20 16:43:00 EST, [facility] #[id number], Partial fill upon patient request if the prescription is for a schedule II opioid drug., 1 application Topi... Start Date: 05/22/20 Status: Ordered midodrine 5 mg oral tablet 1, tablet, By Mouth, 3 times a day, # 90 tablet, Refills 3, Tot. Refills 0, Maintenance, 10/22/20 13:38:00 EDT, Route to Pharmacy Electronically, [facility] #[id number], 160, cm, 09/26/20 14:49:00 EDT, Height, 57.86, [...] 90 capsule, 0 Refills, 05/28/21 14:21:00 EDT, [facility] #[id number], 160, cm, 01/15/21 14:39:00 EDT, Height, 57.86, kg, 04/12/20 23:44:00 EST, Dry Weight Start Date: 05/28/21 Status: Ordered traZODone 50 mg oral tablet 2, tablet, By Mouth, Daily at bedtime, # 60 tablet, Refills 2, Route to Pharmacy Electronically, [facility] #[id number], 160, cm, 11/04/20 11:39:00 EDT, Height, 57.86, [...] Myalgia(Confirmed) Active Pre-syncope(Confirmed) Active Orthostatic hypotension(Confirmed) Active *[id number] Care Partn er rTacy Hurst(Confirmed) Active Pain of right sacroiliac joint(Confirmed) Active Lewy body dementia(Confirmed) Active Tinea cruris(Confirmed) Active Unintentional weight loss(Confirmed) Active Urinary incontinence(Confirmed) Active Vitamin D deficiency(Confirmed) Active Social History Social History Type Response Smoking Status Former smoker entered on: 08/26/15 Sex
--- OUTSIDE RECORDS SUMMARY | 2022-10-25 20:01 | XMS_ITS | Continuity of Care Document ---
Author Name Unknown Organization [facility] Address [address] [place] [address]- Care Team Providers Care Talent Rep Name Role Phone Roberta Felipe NP Primary Care Physician [facility] Date(s): 05/23/20 - 06/22/[address] [address]- Allergies, Adverse Reactions, Alerts Substance Reaction Severity [...] 3 Refills, Maintenance, 05/19/20 14:56:00 EST, Tablet, [facility] #[id number], Partial fill upon patient request if the prescriptionis for a schedule II opioid drug., 160, cm, ... Start Date: 05/19/20 Stop Date: 09/16/20 Status: Ordered lidocaine 4% mucous membrane solution 1 application, Topically, 2 times a day, PRN Pain , Mild, # 1 each, 0 Refills, Maintenance, 05/22/20 16:43:00 EST, [facility] #[id number], Partial fill upon patient request if the [...] capsule, 0 Refills, Maintenance, 04/16/20 14:22:00 EST, [facility] #[id number], 160, cm, 04/16/20 8:39:00 EST, Height, 57.86, [...] each, 11 Refills, Maintenance, 06/03/20 14:11:00 EDT, [facility] #[id number], Partial fill upon patient request if the [...] Myalgia(Confirmed) Active Pre-syncope(Confirmed) Active Orthostatic hypotension(Confirmed) Active *[id number] Care Partn er Tracy Hurst(Confirmed) Active Pain of right sacroiliac joint(Confirmed) Active Lewy body dementia(Confirmed) Active Tinea cruris(Confirmed) Active Unintentional weight loss(Confirmed) Active Urinary incontinence(Confirmed) Active Vitamin D deficiency(Confirmed) Active Social History Social History Type Response Smoking Status Former smoker entered on: 08/26/15 Sex
--- OUTSIDE RECORDS SUMMARY | 2022-10-25 20:01 | XMS_ITS | Continuity of Care Document ---
Author Name Unknown Organization [facility] Address [address] [place] [address]- Care Team Providers Care Stave Inspector Name Role Phone Destinee JIMENEZ, Roberta Merida Primary Care Physician [phone] [place] [facility] - 10/11/[address] [address]- Attending Physician: Not on Staff, Attending MD Allergies, Adverse Reactions, Alerts Substance Reaction Severity Status penicillin rash Active Immunizations Given and Recorded Vaccine Date Status Refusal Reason SARS-CoV-2 mRNA ([id number]) vax 06/19/21 Given influenza virus vaccine, inactivated [...] 09/13/11 3Result Comment: Administered by Dalia Olguin SAMPLE WEAVER 4Admin Note: VIS dated 12/17/08 5Admin Note: VIS dated 04/03/11 Medications Artificial Tears preserved solution 1 drops, Eyes, Both, 4 times a day, PRN Dry Eyes, # 10 mL, 11 Refills, Maintenance, 11/06/20 13:04:00 EDT, Ophth Solution, [facility] #[id number], Partial fill upon patient request if the [...] tablet, 5 Refills, Maintenance, 11/20/20 11:43:00 EDT, [email or web address] #[id number], Please print in lao, 160, cm, 11/04/20 11:39:00 EDT, Height, 57.86, [...] Gm, 5 Refills, Maintenance, 01/15/21 16:05:00 EDT, [facility] #[id number], Partial fill upon patient request if the prescription is for a schedule II opioid drug., 1 application Topically 2 times a d... Start Date: 01/15/21 Status: Ordered guaiFENesin 400 mg oral tablet 1 tablet = 400 mg, By Mouth, Every 4 hours, PRN as needed for congestion and cough, # 30 tablet, 1 Refills, Maintenance, 08/27/21 13:40:00 EDT, Tablet, [facility] #[id number], Partial fill upon patient request if the [...] 2 Refills, Maintenance, 08/17/21 13:14:00 EDT, Syrup, [email or web address] #[id number], 15 mL By Mouth Daily,PRN:as needed for [...] 3 Refills, Maintenance, 02/20/21 12:51:00 EST, Tablet, [facility] #[id number], Partial fill upon patient request if the prescription is for a schedule II opioid drug., 160, cm, 01/15/21 14:... Start Date: 02/20/21 Status: Ordered levothyroxine 75 mcg (0.075 mg) oral tablet 1 tablet = 75 mcg, By Mouth, Daily, TK 1 T PO D, # 90 tablet, 1 Refills, Maintenance, 02/19/21 13:28:00 EST, Tablet, [facility] #[id number], Partial fill upon patient request if the prescriptionis for a schedule II opioid drug., 160, cm, ... Start Date: 02/19/21 Status: Ordered lidocaine 4% mucous membrane solution 1 application, Topically, 2 times a day, PRN Pain , Mild, # 1 each, 0 Refills, Maintenance, 05/22/20 16:43:00 EST, [facility] #[id number], Partial fill upon patient request if the prescription is for a schedule II opioid drug., 1 application Topi... Start Date: 05/22/20 Status: Ordered midodrine 5 mg oral tablet 1, tablet, By Mouth, 3 times a day, # 90 tablet, Refills 3, Tot. Refills 0, Maintenance, 10/22/20 13:38:00 EDT, Route to Pharmacy Electronically, [facility] #[id number], 160, cm, 09/26/20 14:49:00 EDT, Height, 57.86, kg, 04/12/20 23:44:00 EST, Dr... Start Date: 10/22/20 Status: Ordered Nutritional Supplements See Instructions, # 90 each, Refills 11, Tot. Refills 11, Maintenance, 1.5 kcal/ml, 237 ml q 8 hrs by mouth, 02/26/21 17:12:00 EST, Supply Start Date: 02/26/21 Status: Ordered omeprazole 40 mg oral enteric coated capsule 1 capsule, By Mouth, Daily, # 90 capsule, 0 Refills, 09/02/21 13:12:00 EDT, [facility] #[id number], 160, cm, 08/27/21 13:11:00 EDT, Height, 57.86, kg, 04/12/20 23:44:00 EST, Dry Weight Start Date: 09/02/21 Status: Ordered traZODone 50 mg oral tablet 2, tablet, By Mouth, Daily at bedtime, # 60 tablet, Refills 2, Route to Pharmacy Electronically, [facility] #[id number], 160, cm, 11/04/20 11:39:00 EDT, Height, 57.86, [...] Myalgia(Confirmed) Active Pre-syncope(Confirmed) Active Orthostatic hypotension(Confirmed) Active *[id number] Care Partn er Tracy Hurst(Confirmed) Active Pain of right sacroiliac joint(Confirmed) Active Seizures(Confirmed) Active Lewy body dementia(Confirmed) Active Tinea cruris(Confirmed) Active Unintentional weight loss(Confirmed) Active Urinary incontinence(Confirmed) Active Vitamin D deficiency(Confirmed) Active Social History Social History Type Response Smoking Status Former smoker entered on: 08/26/15 Sex
--- OUTSIDE RECORDS SUMMARY | 2022-10-25 20:01 | XMS_ITS | Continuity of Care Document ---
Author Name Unknown Organization [facility] Address [address] [place] [address]- Care Team Providers Care Launch Operator Name Role Phone Destinee JIMENEZ, Roberta Merida Primary Care Physician [facility]counter [facility] Date(s): 09/05/20 - 10/05/[address] [address]- Allergies, Adverse Reactions, Alerts Substance Reaction Severity [...] 11 Refills, Maintenance, 06/24/20 14:40:00 EDT, Tablet, [facility] #[id number], Partial fill upon patient request if the [...] 2 Refills, Maintenance, 09/29/20 16:10:00 EDT, Tablet, [facility] #[id number], Partial fill upon patient request ifthe prescription is for a schedule II opioid drug.,... Start Date: 09/29/20 Status: Ordered levothyroxine 75 mcg (0.075 mg) oral tablet 1 tablet = 75 mcg, By Mouth, Daily, TK 1 T PO D, # 90 tablet, 1 Refills, Maintenance, 09/16/20 14:56:00 EDT, Tablet, [facility] #[id number], Partial fill upon patient request if the prescriptionis for a schedule II opioid drug., 160, cm, ... Start Date: 09/16/20 Stop Date: 01/14/21 Status: Ordered lidocaine 4% mucous membrane solution 1 application, Topically, 2 times a day, PRN Pain , Mild, # 1 each, 0 Refills, Maintenance, 05/22/20 16:43:00 EST, [facility] #[id number], Partial fill upon patient request if the prescription is for a schedule II opioid drug., 1 application Topi... Start Date: 05/22/20 Status: Ordered midodrine 5 mg oral tablet 5 mg, 1, tablet, By Mouth, 3 times a day, lower dose tablet, # 90 tablet, Refills 3, Tot. Refills 3, Maintenance, 06/23/20 14:16:00 EDT, Route to Pharmacy Electronically, [facility] #[id number],Partial fill upon patient request if the prescripti... [...] capsule, 0 Refills, Maintenance, 09/10/20 8:11:00 EDT, [facility] #[id number], 160, cm, 08/21/20 12:36:00 EDT, Height, 57.86, kg, 04/12/20 23:44:00 EST, Dry Weight Start Date: 09/10/20 Status: Ordered traZODone 50 mg oral tablet 2, tablet, By Mouth, Daily at bedtime, # 60 tablet, Refills 3, Tot. Refills 0, Maintenance, 07/15/20 10:03:00 EDT, Route to Pharmacy Electronically, [facility] #[id number], 160, cm, 05/21/20 9:12:00 EST, Height, 57.86, [...] Myalgia(Confirmed) Active Pre-syncope(Confirmed) Active Orthostatic hypotension(Confirmed) Active *[id number] Care Partn er Tracy Hurst(Confirmed) Active Pain of right sacroiliac joint(Confirmed) Active Lewy body dementia(Confirmed) Active Tinea cruris(Confirmed) Active Unintentional weight loss(Confirmed) Active Urinary incontinence(Confirmed) Active Vitamin D deficiency(Confirmed) Active Social History Social History Type Response Smoking Status Former smoker entered on: 08/26/15 Sex
--- OUTSIDE RECORDS SUMMARY | 2022-10-25 20:01 | XMS_ITS | Continuity of Care Document ---
Author Name Unknown Organization [facility] Address [address] [place] [address]- Care Team Providers Care Rn Intern Name Role Phone Destinee JIMENEZ, Roberta Merida Primary Care Physician [facility] Date(s): 04/01/20 - 05/01/[address] [address]- Allergies, Adverse Reactions, Alerts Substance Reaction Severity [...] capsule, 0 Refills, Maintenance, 04/16/20 14:22:00 EST, [facility] #[id number], 160, cm, 04/16/20 8:39:00 EST, Height, 57.86, kg, 04/12/20 23:44:00 EST, Dry Weight Start Date: 04/16/20 Status: Ordered traZODone 50 mg oral tablet TAKE 2 TABLETS BY MOUTH DAILY AT BEDTIME Start Date: 04/12/20 Status: Ordered warfarin 3 mg oral tablet 1 tablet = 3 mg, By Mouth, Daily, # 30 tablet, 0 Refills, Maintenance, 04/16/20 12:40:00 EST, Tablet, [facility] #[id number], Partial fill upon patient request if the [...] Myalgia(Confirmed) Active Pre-syncope(Confirmed) Active Orthostatic hypotension(Confirmed) Active *[id number] Care Partn er Tracy Natali(Confirmed) Active Pain of right sacroiliac joint(Confirmed) Active Lewy body dementia(Confirmed) Active Tinea cruris(Confirmed) Active Unintentional weight loss(Confirmed) Active Urinary incontinence(Confirmed) Active Vitamin D deficiency(Confirmed) Active Social History Social History Type Response Smoking Status Former smoker entered on: 08/26/15 Sex
--- OUTSIDE RECORDS SUMMARY | 2022-10-25 20:01 | XMS_ITS | Continuity of Care Document ---
Author Name Unknown Organization [facility] Address [address] [place] [address]- Care Team Providers Care Seedling Sorter Name Role Phone Destinee JIMENEZ, Roberta Merida Primary Care Physician Encounter [facility] [place] Date(s): 10/30/19 - 11/29/[address] [address]- [facility] Allergies, Adverse Reactions, Alerts Substance Reaction Severity [...] mL, 11 Refills, Maintenance, 10/03/19 11:19:00 EDT, [facility] #[id number], 1 drops Eyes, Both 3 times a [...] mL, 3 Refills, Maintenance, 10/04/19 11:21:00 EDT, [facility] #[id number], 30, 15 mL By Mouth Daily,PRN: NEEDED FOR CONSTIPATION, 160, cm, 03/22/19 15:22:00 EST, Height Start Date: 10/04/19 Status: Ordered levothyroxine 75 mcg (0.075 mg) oral tablet 1 tablet = 75 mcg, By Mouth, Daily, increase in dose, # 90 tablet, 1 Refills, Maintenance, 11/07/2009:50:00 EDT, Tablet, [facility] #[id number], 160, cm, 03/22/19 15:22:00 EST, Height Start [...] capsule, 1 Refills, Maintenance, 11/23/19 15:26:00 EDT, [facility] #[id number], 160, cm, 03/22/19 15:22:00 EST, Height Start Date: 11/23/19 Status: Ordered warfarin 2.5 mg oral tablet 1 tablet, By Mouth, Daily, DIRECTED BY NURSE BASED ON INR RESULTS., # 30 tablet, 11 Refills, Maintenance, 09/18/19 16:11:00 EDT, [facility] #[id number], 160, cm, 03/22/19 15:22:00 EST, Height Start [...] back pain(Confirmed) Active Hypotension(Confirmed) Active Myalgia(Confirmed) Active *[id number]-[facility] Partn christie- Vimal Mcfarland(Confirmed) Active Pain of right sacroiliac joint(Confirmed) Active Lewy body dementia(Confirmed) Active Tinea cruris(Confirmed) Active Urinary incontinence(Confirmed) Active Vitamin D deficiency(Confirmed) Active Social History Social History Type Response Smoking Status Former smoker entered on: 08/26/15 Sex
--- OUTSIDE RECORDS SUMMARY | 2022-10-25 20:01 | XMS_ITS | Continuity of Care Document ---
Author Name Unknown Organization [facility] Address [address] [place] [address]- Care Team Providers Care Manager Port Name Role Phone Destinee JIMENEZ, Roberta Merida Primary Care Physician [facility] Date[facility]s): 12/11/19 - 01/10/[address] [address]- [facility] Allergies, Adverse Reactions, Alerts Substance Reaction [...] mL, 11 Refills, Maintenance, 10/03/19 11:19:00 EDT, [facility] #[id number], 1 drops Eyes, Both 3 times a [...] mL, 3 Refills, Maintenance, 10/04/19 11:21:00 EDT, [facility] #[id number], 30, 15 mL By Mouth Daily,PRN: NEEDED FOR CONSTIPATION, 160, cm, 03/22/19 15:22:00 EST, Height Start Date: 10/04/19 Status: Ordered levothyroxine 75 mcg (0.075 mg) oral tablet 1 tablet = 75 mcg, By Mouth, Daily, increase in dose, # 90 tablet, 1 Refills, Maintenance, 11/07/2009:50:00 EDT, Tablet, [facility] #[id number], 160, cm, 03/22/19 15:22:00 EST, Height Start [...] 11 Refills, Maintenance, 12/25/19 10:20:00 EDT, Tablet, [facility] #[id number], 160, cm, 12/11/19 13:11:00 EDT, Height Start Date: 12/25/19 Status: Ordered omeprazole 40 mg oral enteric coated capsule 1 capsule, By Mouth, Daily, # 90 capsule, 1 Refills, Maintenance, 11/23/19 15:26:00 EDT, [facility] #[id number], 160, cm, 03/22/19 15:22:00 EST, Height Start Date: 11/23/19 Status: Ordered warfarin 2.5 mg oral tablet 1 tablet, By Mouth, Daily, DIRECTED BY NURSE BASED ON INR RESULTS., # 30 tablet, 11 Refills, Maintenance, 09/18/19 16:11:00 EDT, [facility] #[id number], 160, cm, 03/22/19 15:22:00 EST, Height Start [...] Active Hypotension(Confirmed) Active Myalgia(Confirmed) Active Pre-syncope(Confirmed) Active *[id number] Gina jeramie Mcfarland(Confirmed) Active Pain of right sacroiliac joint(Confirmed) Active Lewy body dementia(Confirmed) Active Tinea cruris(Confirmed) Active Unintentional weight loss(Confirmed) Active Urinary incontinence(Confirmed) Active Vitamin D deficiency(Confirmed) Active Social History Social History Type Response Smoking Status Former smoker entered on: 08/26/15 Sex
--- OUTSIDE RECORDS SUMMARY | 2022-10-25 20:01 | XMS_ITS | Continuity of Care Document ---
Author Name Unknown Organization [facility] Address [address] [place] [address]- Care Team Providers Care Business Agent Name Role Phone Destinee JIMENEZ, Roberta Merida Primary Care Physician [facility] Date[facility]s): 03/04/20 - 04/03/[address] [address]- Allergies, Adverse Reactions, Alerts Substance Reaction Severity [...] mL, 11 Refills, Maintenance, 10/03/19 11:19:00 EDT, [facility] #[id number], 1 drops Eyes, Both 3 times a [...] mL, 3 Refills, Maintenance, 10/04/19 11:21:00 EDT, [facility] #[id number], 30, 15 mL By Mouth Daily,PRN: NEEDED FOR CONSTIPATION, 160, cm, 03/22/19 15:22:00 EST, Height Start Date: 10/04/19 Status: Ordered levothyroxine 75 mcg (0.075 mg) oral tablet 1 tablet = 75 mcg, By Mouth, Daily, increase in dose, # 90 tablet, 1 Refills, Maintenance, 11/07/2009:50:00 EDT, Tablet, [facility] #[id number], 160, cm, 03/22/19 15:22:00 EST, Height Start Date: 11/08/19 Stop Date: 11/02/20 Status: Ordered midodrine 10 mg oral tablet 0.5 tablet = 5 mg, By Mouth, 3 times a day, # 45 tablet, 5 Refills, Maintenance, 03/27/20 10:17:00 EST, Tablet, [facility] #[id number], Partial fill upon patient request if the prescription is for a schedule II opioid drug., 160, cm, 03/13/20 8:2... Start Date: 03/27/20 Stop Date: 09/23/20 Status: Ordered omeprazole 40 mg oral enteric coated capsule 1 capsule, By Mouth, Daily, # 90 capsule, 1 Refills, Maintenance, 11/23/19 15:26:00 EDT, [facility] #[id number], 160, cm, 03/22/19 15:22:00 EST, Height Start [...] Maintenance,03/27/20 10:16:00 EST, Route to Pharmacy Electronically, [facility] #[id number], Partial fill upon patient request if the prescription is for a sc... Start Date: 03/27/20 Stop Date: 07/25/20 Status: Ordered warfarin 2.5 mg oral tablet 1 tablet, By Mouth, Daily, DIRECTED BY NURSE BASED ON INR RESULTS., # 30 tablet, 11 Refills, Maintenance, 09/18/19 16:11:00 EDT, [facility] #[id number], 160, cm, 03/22/19 15:22:00 EST, Height Start [...] Myalgia(Confirmed) Active Pre-syncope(Confirmed) Active Orthostatic hypotension(Confirmed) Active *[id number] Care Partn er Tracyyusuf Hurst(Confirmed) Active Pain of right sacroiliac joint(Confirmed) Active Lewy body dementia(Confirmed) Active Tinea cruris(Confirmed) Active Unintentional weight loss(Confirmed) Active Urinary incontinence(Confirmed) Active Vitamin D deficiency(Confirmed) Active Social History Social History Type Response Smoking Status Former smoker entered on: 08/26/15 Sex
--- OUTSIDE RECORDS SUMMARY | 2022-10-25 20:01 | XMS_ITS | Continuity of Care Document ---
Author Name Unknown Organization [facility] Address [address] [place] [address]- Care Team Providers Care Speech And Hearing Clinic Director Name Role Phone Destinee JIMENEZ, Roberta Merida Primary Care Physician [facility] Date(s): 06/05/20 - 07/05/[address] [address]- Allergies, Adverse Reactions, Alerts Substance Reaction Severity [...] 11 Refills, Maintenance, 06/24/20 14:40:00 EDT, Tablet, [facility] #[id number], Partial fill upon patient request if the [...] 3 Refills, Maintenance, 05/19/20 14:56:00 EST, Tablet, [facility] #[id number], Partial fill upon patient request if the prescriptionis for a schedule II opioid drug., 160, cm, ... Start Date: 05/19/20 Stop Date: 09/16/20 Status: Ordered lidocaine 4% mucous membrane solution 1 application, Topically, 2 times a day, PRN Pain , Mild, # 1 each, 0 Refills, Maintenance, 05/22/20 16:43:00 EST, [facility] #[id number], Partial fill upon patient request if the prescription is for a schedule II opioid drug., 1 application Topi... Start Date: 05/22/20 Status: Ordered midodrine 5 mg oral tablet 5 mg, 1, tablet, By Mouth, 3 times a day, lower dose tablet, # 90 tablet, Refills 3, Tot. Refills 3, Maintenance, 06/23/20 14:16:00 EDT, Route to Pharmacy Electronically, [facility] #[id number],Partial fill upon patient request if the prescripti... [...] capsule, 0 Refills, Maintenance, 06/23/20 8:58:00 EDT, [facility] #[id number], 160, cm, 05/21/20 9:12:00 EST, Height, 57.86, [...] Myalgia(Confirmed) Active Pre-syncope(Confirmed) Active Orthostatic hypotension(Confirmed) Active *[id number] Care Partn er Tracy Hurst(Confirmed) Active Pain of right sacroiliac joint(Confirmed) Active Lewy body dementia(Confirmed) Active Tinea cruris(Confirmed) Active Unintentional weight loss(Confirmed) Active Urinary incontinence(Confirmed) Active Vitamin D deficiency(Confirmed) Active Social History Social History Type Response Smoking Status Former smoker entered on: 08/26/15 Sex
--- OUTSIDE RECORDS SUMMARY | 2022-10-25 20:01 | XMS_ITS | Continuity of Care Document ---
Author Name Unknown Organization [facility] Address [address] [place] [address]- Care Team Providers Care Security Guard Dispatcher Name Role Phone Roberta Felipe NP Primary Care Physician [place] [facility]/10/20 - 07/10/[address] [address] Allergies, Adverse Reactions, Alerts Substance [...] influenza virus vaccine, inactivated 3 05/31/12 Gi advonte pneumococcal 13-valent vaccine 08/31/16 Given pneumococcal 23-valent vaccine 4 05/31/12 Given tetanus/diphtheria/pertussis, acel(Tdap) 5 05/31/12 Given 1Result Comment: Administered by Dalia Olguin PRINT PRESS OPERATOR 2Result Comment: incorrect brand entered 3Admin Note: VIS dated 09/13/11 4Admin Note: VIS dated 12/17/08 5Admin Note: VIS dated 04/03/11 Medications apixaban 2.5 mg oral tablet 1 tablet = 2.5 mg, By Mouth, 2 times a day, Transitioning from warfarin to apixaban, # 60 tablet, 11 Refills, Maintenance, 06/24/20 14:40:00 EDT, Tablet, [facility] #[id number], Partial fill upon patient request if the [...] 3 Refills, Maintenance, 05/19/20 14:56:00 EST, Tablet, [facility] #[id number], Partial fill upon patient request if the prescriptionis for a schedule II opioid drug., 160, cm, ... Start Date: 05/19/20 Stop Date: 09/16/20 Status: Ordered lidocaine 4% mucous membrane solution 1 application, Topically, 2 times a day, PRN Pain , Mild, # 1 each, 0 Refills, Maintenance, 05/22/20 16:43:00 EST, [facility] #[id number], Partial fill upon patient request if the prescription is for a schedule II opioid drug., 1 application Topi... Start Date: 05/22/20 Status: Ordered midodrine 5 mg oral tablet 5 mg, 1, tablet, By Mouth, 3 times a day, lower dose tablet, # 90 tablet, Refills 3, Tot. Refills 3, Maintenance, 06/23/20 14:16:00 EDT, Route to Pharmacy Electronically, [facility] #[id number],Partial fill upon patient request if the prescripti... [...] capsule, 0 Refills, Maintenance, 06/23/20 8:58:00 EDT, [facility] #[id number], 160, cm, 05/21/20 9:12:00 EST, Height, 57.86, [...] Myalgia(Confirmed) Active Pre-syncope(Confirmed) Active Orthostatic hypotension(Confirmed) Active *[id number] Care Partn er Tracyyusuf Hurst(Confirmed) Active Pain of right sacroiliac joint(Confirmed) Active Lewy body dementia(Confirmed) Active Tinea cruris(Confirmed) Active Unintentional weight loss(Confirmed) Active Urinary incontinence(Confirmed) Active Vitamin D deficiency(Confirmed) Active Social History Social History Type Response Smoking Status Former smoker entered on: 08/26/15 Sex
--- OUTSIDE RECORDS SUMMARY | 2022-10-25 20:01 | XMS_ITS | Continuity of Care Document ---
Author Name Unknown Organization [facility] Address [address] [place] [address]- Encounter [facility] R [id number] Date(s): 11/06/19 - 12/06/[address] [address]- [facility]
--- OUTSIDE RECORDS SUMMARY | 2022-10-25 20:01 | XMS_ITS | Continuity of Care Document ---
Author Name Unknown Organization [facility] Address [address] [place] [address]- Care Team Providers Care Certified Welder Name Role Phone Destinee JIMENEZ, Roberta Merida Primary Care Physician [phone] [place] [facility] [place] 10/23/19 - 11/22/[address] [address]- [facility] Allergies, Adverse Reactions, Alerts Substance [...] mL, 11 Refills, Maintenance, 10/03/19 11:19:00 EDT, [facility] #[id number], 1 drops Eyes, Both 3 times a [...] mL, 3 Refills, Maintenance, 10/04/19 11:21:00 EDT, [facility] #56556, 30, 15 mL By Mouth Daily,PRN: NEEDED FOR CONSTIPATION, 160, cm, 03/22/19 15:22:00 EST, Height Start Date: 10/04/19 Status: Ordered levothyroxine 75 mcg (0.075 mg) oral tablet 1 tablet = 75 mcg, By Mouth, Daily, increase in dose, # 90 tablet, 1 Refills, Maintenance, 11/07/2009:50:00 EDT, Tablet, [facility] #[id number], 160, cm, 03/22/19 15:22:00 EST, Height Start [...] capsule, 0 Refills, Maintenance, 08/27/19 8:49:00 EDT, [facility] #[id number], 160, cm, 03/22/19 15:22:00 EST, Height Start Date: 08/27/19 Status: Ordered warfarin 2.5 mg oral tablet 1 tablet, By Mouth, Daily, DIRECTED BY NURSE BASED ON INR RESULTS., # 30 tablet, 11 Refills, Maintenance, 09/18/19 16:11:00 EDT, [facility] #[id number], 160, cm, 03/22/19 15:22:00 EST, Height Start [...] back pain(Confirmed) Active Hypotension(Confirmed) Active Myalgia(Confirmed) Active *[id number]-[facility] Partn christie- Vimal Mcfarland(Confirmed) Active Pain of right sacroiliac joint(Confirmed) Active Lewy body dementia(Confirmed) Active Tinea cruris(Confirmed) Active Urinary incontinence(Confirmed) Active Vitamin D deficiency(Confirmed) Active Social History Social History Type Response Smoking Status Former smoker entered on: 08/26/15 Sex
--- OUTSIDE RECORDS SUMMARY | 2022-10-25 20:02 | XMS_ITS | Continuity of Care Document ---
Author Name Unknown Organization [facility] Address Unknown Care Team Providers Care High School Librarian Name Role Phone Destinee JIMENEZ, Roberta Merida Primary Care Physician [phone] Encounter [facility] [place] Date(s): 10/28/20 - 11/04/20 [facility] Attending Physician: Anders Sanchez NP Referring Physician: Roberta Felipe NP Allergies, [...] tablet, 5 Refills, Maintenance, 10/28/20 15:23:00 EDT, [facility] #[id number], has Cr of 1.3, so should goup [...] 2 Refills, Maintenance, 09/29/20 16:10:00 EDT, Tablet, [facility] #[id number], Partial fill upon patient request ifthe prescription is for a schedule II opioid drug.,... Start Date: 09/29/20 Status: Ordered levothyroxine 75 mcg (0.075 mg) oral tablet 1 tablet = 75 mcg, By Mouth, Daily, TK 1 T PO D, # 90 tablet, 1 Refills, Maintenance, 09/16/20 14:56:00 EDT, Tablet, [facility] #30130, Partial fill upon patient request if the prescriptionis for a schedule II opioid drug., 160, cm, ... Start Date: 09/16/20 Stop Date: 01/14/21 Status: Ordered lidocaine 4% mucous membrane solution 1 application, Topically, 2 times a day, PRN Pain , Mild, # 1 each, 0 Refills, Maintenance, 05/22/20 16:43:00 EST, [facility] #05474, Partial fill upon patient request if the prescription is for a schedule II opioid drug., 1 application Topi... Start Date: 05/22/20 Status: Ordered midodrine 5 mg oral tablet 1, tablet, By Mouth, 3 times a day, # 90 tablet, Refills 3, Tot. Refills 0, Maintenance, 10/22/20 13:38:00 EDT, Route to Pharmacy Electronically, [facility] #[id number], 160, cm, 09/26/20 14:49:00 EDT, Height, 57.86, [...] capsule, 0 Refills, Maintenance, 09/10/20 8:11:00 EDT, [facility] #[id number], 160, cm, 08/21/20 12:36:00 EDT, Height, 57.86, kg, 04/12/20 23:44:00 EST, Dry Weight Start Date: 09/10/20 Status: Ordered traZODone 50 mg oral tablet 2, tablet, By Mouth, Daily at bedtime, # 60 tablet, Refills 3, Tot. Refills 0, Maintenance, 07/15/20 10:03:00 EDT, Route to Pharmacy Electronically, [facility] #[id number], 160, cm, 05/21/20 9:12:00 EST, Height, 57.86, [...] Myalgia(Confirmed) Active Pre-syncope(Confirmed) Active Orthostatic hypotension(Confirmed) Active *[id number] Care Partn er Tracy Hurst(Confirmed) Active Pain of right sacroiliac joint(Confirmed) Active Lewy body dementia(Confirmed) Active Tinea cruris(Confirmed) Active Unintentional weight loss(Confirmed) Active Urinary incontinence(Confirmed) Active Vitamin D deficiency(Confirmed) Active Vital Signs Most recent to oldest [Reference Range]: 1 Height 160 cm (10/28/20 2:33 PM) Oxygen Saturation [94-100 %] 97 % (10/28/20 2:33 PM) Pulse Rate [55-90 bpm] 66 bpm (10/28/20 2:33 PM) Blood Pressure [90-138/55-84 mm Hg] 114/ 62mm Hg (10/28/20 2:33 PM) Temperature [96.8-100.4 DegF] 96.9 DegF (10/28/20 2:33 PM) Blood pressure sites Arm, right (10/28/20 2:33 PM) Temperature Route Temporal (10/28/20 2:33 PM) Social History Social History Type Response Smoking Status Former smoker entered on: 08/26/15 Sex
--- OUTSIDE RECORDS SUMMARY | 2022-10-25 20:02 | XMS_ITS | Continuity of Care Document ---
Author Name Unknown Organization [facility] Address [address] [place] [address]- Care Team Providers Care Butter Production Supervisor Name Role Phone Roberta Felipe NP Primary Care Physician Encounter [facility] Date(s): 06/25/20 - 07/25/[address] [address] [place] Allergies, Adverse Reactions, Alerts Substance Reaction Severity [...] Given 1Result Comment: Administered by Dalia Olguin ECONOMIC DEVELOPMENT COORDINATOR 2Result Comment: incorrect brand entered 3Admin Note: VIS dated 09/13/11 4Admin Note: VIS dated 12/17/08 5Admin Note: VIS dated 04/03/11 Medications apixaban 2.5 mg oral tablet 1 tablet = 2.5 mg, By Mouth, 2 times a day, Transitioning from warfarin to apixaban, # 60 tablet, 11 Refills, Maintenance, 06/24/20 14:40:00 EDT, Tablet, [facility] #[id number], Partial fill upon patient request if the [...] 3 Refills, Maintenance, 05/19/20 14:56:00 EST, Tablet, [facility] #[id number], Partial fill upon patient request if the prescriptionis for a schedule II opioid drug., 160, cm, ... Start Date: 05/19/20 Stop Date: 09/16/20 Status: Ordered lidocaine 4% mucous membrane solution 1 application, Topically, 2 times a day, PRN Pain , Mild, # 1 each, 0 Refills, Maintenance, 05/22/20 16:43:00 EST, [facility] #61555, Partial fill upon patient request if the prescription is for a schedule II opioid drug., 1 application Topi... Start Date: 05/22/20 Status: Ordered midodrine 5 mg oral tablet 5 mg, 1, tablet, By Mouth, 3 times a day, lower dose tablet, # 90 tablet, Refills 3, Tot. Refills 3, Maintenance, 06/23/20 14:16:00 EDT, Route to Pharmacy Electronically, [facility] #[id number],Partial fill upon patient request if the prescripti... [...] capsule, 0 Refills, Maintenance, 06/23/20 8:58:00 EDT, [facility] #99117, 160, cm, 05/21/20 9:12:00 EST, Height, 57.86, kg, 04/12/20 23:44:00 EST, Dry Weight Start Date: 06/23/20 Status: Ordered traZODone 50 mg oral tablet 2, tablet, By Mouth, Daily at bedtime, # 60 tablet, Refills 3, Tot. Refills 0, Maintenance, 07/15/20 10:03:00 EDT, Route to Pharmacy Electronically, [facility] #[id number], 160, cm, 05/21/20 9:12:00 EST, Height, 57.86, [...] Myalgia(Confirmed) Active Pre-syncope(Confirmed) Active Orthostatic hypotension(Confirmed) Active *[id number] Care Partn er Tracy Hurst(Confirmed) Active Pain of right sacroiliac joint(Confirmed) Active Lewy body dementia(Confirmed) Active Tinea cruris(Confirmed) Active Unintentional weight loss(Confirmed) Active Urinary incontinence(Confirmed) Active Vitamin D deficiency(Confirmed) Active Social History Social History Type Response Smoking Status Former smoker entered on: 08/26/15 Sex
--- OUTSIDE RECORDS SUMMARY | 2022-10-25 20:02 | XMS_ITS | Continuity of Care Document ---
Author Name Unknown Organization [facility] Address [address] [facility], [address] Floor, [address] [place] [address]- Care Team Providers Care Wood Polisher Name Role Phone Destinee JIMENEZ, Roberta Merida Primary Care Physician En[place] [facility] Date(s): 07/26/22 - 08/25/22 [facility] [address], [address], [address] [place] [address] [[email or web address] Attending Physician: Hiren Blackburn Admitting Physician: Hiren Blackburn Referring Physician: AdmHiren thomas Allergies, Adverse Reactions, Alerts Substance Reaction Severity Status penicillin rash Active Immunizations Given and Recorded Vaccine Date Status Refusal Reason [id number] 12y+ bivalent booster vax 03/05/22 Given influenza [...] influenza virus vaccine, inactivated 2 05/31/12 Gi davotne SARS-CoV-2 mRNA ([id number]) vax 06/19/21 Given SARS-CoV-2 (COVID-19) mRNA BNT-162b2 [...] Refills, Maintenance, 01/26/22 14:13:00 EST, Ophth Solution, [facility] #[id number], Partial fill upon patient request if the [...] tablet, 5 Refills, Maintenance, 10/26/21 14:08:00 EDT, [facility] #[id number], Please print in latvian, 160, cm, 08/27/21 13:11:00 EDT, Height, 57.86, [...] Gm, 1 Refills, Maintenance, 06/18/2314:05:00 EDT, Cream, [facility] #[id number], Partial fill upon patient request if the prescription is for a schedule II opioid drug., 1 applicatio... Start Date: 06/18/22 Status: Ordered docusate sodium 100 mg oral capsule 100 mg, 1, capsule, By Mouth, 2 times a day, PRN, # 60 capsule, Refills 3, Tot. Refills 3, Maintenance, for constipation, 01/26/22 14:13:00 EST, Route to Pharmacy Electronically, [facility]#[id number], Partial fill upon patient request if the pr... Start Date: 01/26/22 Status: Ordered Eucerin Eczema Relief topical cream 1 application, Topically, 2 times a day, # 240 Gm, 5 Refills, Maintenance, 01/15/21 16:05:00 EDT, [facility] #[id number], Partial fill upon patient request if the prescription is for a schedule II opioid drug., 1 application Topically 2 times a d... Start Date: 01/15/21 Status: Ordered guaiFENesin 400 mg oral tablet 1 tablet = 400 mg, By Mouth, Every 4 hours, PRN as needed for congestion and cough, # 30 tablet, 1 Refills, Maintenance, 08/27/21 13:40:00 EDT, Tablet, [facility] #[id number], Partial fill upon patient request if the [...] 2 Refills, Maintenance, 08/17/21 13:14:00 EDT, Syrup, [email or web address] #[id number], 15 mL By Mouth Daily,PRN:as needed for [...] tablet, 5 Refills, Maintenance, 10/26/21 14:08:00 EDT, [facility] #46646, Partial fill upon patient request if the prescription is for a schedule II opioid drug., 160, cm, 08/27/21 13:... Start Date: 10/26/21 Status: Ordered levothyroxine 75 mcg (0.075 mg) oral tablet 1 tablet = 75 mcg, By Mouth, Daily, TK 1 T PO D, # 90 tablet, 1 Refills, Maintenance, 04/21/22 9:43:00 EST, [facility] #10822, Partial fill upon patient request if the prescription is for a schedule II opioid drug., 160, cm, ... Start Date: 04/21/22 Status: Ordered lidocaine 4% mucous membrane solution 1 application, Topically, 2 times a day, PRN Pain , Mild, # 1 each, 0 Refills, Maintenance, 05/22/20 16:43:00 EST, [facility] #[id number], Partial fill upon patient request if the prescription is for a schedule II opioid drug., 1 application Topi... Start Date: 05/22/20 Status: Ordered midodrine 5 mg oral tablet 1, tablet, By Mouth, 3 times a day, # 90 tablet, Refills 3, Tot. Refills 3, Maintenance, 10/27/21 15:24:00 EDT, Route to Pharmacy Electronically, [facility] #[id number], 160, cm, 08/27/21 13:11:00 EDT, Height, 57.86, kg, 04/12/20 23:44:00 EST, Dr... Start Date: 10/27/21 Status: Ordered Nutritional Supplements See Instructions, # 90 each, Refills 11, Tot. 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 errbtazlW63.4, G31.83, 07/09/22 17:02:00 EDT, Supply Start Date: 07/09/22 Status: Ordered omeprazole 40 mg oral enteric coated capsule 1 capsule, By Mouth, Daily, # 90 capsule, 1 Refills, 11/23/21 16:42:00 EDT, [facility] #[id number], 160, cm, 08/27/21 13:11:00 EDT, Height, 57.86, [...] 05/03/22 11:14:00 EST, Route to Pharmacy Electronically, [facility] #[id number], 160, cm, 04/19/22 17:27:00 EST, Height Start Date: 05/03/22 Status: Ordered Urinal See Instructions, # 3 each, Refills 0, Tot. Refills 0, Maintenance, Use as needed for urinating. 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 Z74.01, G31.83, 05/22/20 17:15:00 EST, Supply Start Date: 05/22/20 Status: Ordered Washable Land Economist Bed Pads Washable Land Economist Bed Pads, See Instructions, # 4 each, [...] Pre-syncope Confirmed Active Orthostatic hypotension Confirmed Active *[id number] Scout Executive Yi Campos Confirmed Active Pain of right sacroiliac joint Confirmed Active Seizures Confirmed Active Lewy body dementia Confirmed Active Tinea cruris Confirmed Active Unintentional weight loss Confirmed Active Urinary incontinence Confirmed Active Vitamin D deficiency Confirmed Active Social History Social History Type Response Smoking Status Former smoker entered on: 08/26/15 Sex Patient Care team information Care Team Personnel Name: Matilde Mahmood RN Position: S RN Member Role: Primary Care Nurse Name: Roberta Felipe NP Position: [facility] PCO Associate Professional Member Role: PCP Address: Address: [address] [place] [address] Name: Maci Kruse RN Position: [facility] SN RN Member Role: Primary Care Nurse Name: Lyudmila Ortez RN Position: [facility] RN Member Role: Primary Care Nurse Name: Lilo Maldonado RN Position: [facility] RN Member Role: Primary Care Nurse Name: Anuj Murillo RN Position: [facility] RN Member Role: Primary Care Nurse Name: Jasmin Oliva Position: [facility] Outreach Member Role: Lifetime Consulting Physician Name: Suzanne Celeste RN Position: [facility] RN Member Role: Primary Care Nurse Name: Lily Solis RN Position: [facility] Onco RN Member Role: Primary Care Nurse Name: Adela Tadeo RN Position: [facility] RN Member Role: Primary Care Nurse Name: Nancy Morrow RN Position: [facility] RN Member Role: Primary Care Nurse Name: Etta Dewitt RN Position: [facility] RN Member Role: Primary Care Nurse Care Team Related Persons Name: JESSIKA HEARD Address: [address] [address] Name: JESSICA JOSUE Address: [address] [place] [address] Name: CARLOS CEJA Address: [address] [address]
--- OUTSIDE RECORDS SUMMARY | 2022-10-25 20:02 | XMS_ITS | Continuity of Care Document ---
Author Name Unknown Organization [facility] Address [address] [place] [address]- Care Team Providers Care Grader Green Meat Name Role Phone Roberta Felipe NP Primary Care Physician Encounter [facility] Date(s): 02/25/21 - 03/27/[address] [address] Allergies, Adverse Reactions, Alerts Substance Reaction [...] Refills, Maintenance, 11/06/20 13:04:00 EDT, Ophth Solution, [facility] #[id number], Partial fill upon patient request if the [...] tablet, 5 Refills, Maintenance, 11/20/20 11:43:00 EDT, [facility] #[id number], Please print in tajik, 160, cm, 11/04/20 11:39:00 EDT, Height, 57.86, [...] Gm, 5 Refills, Maintenance, 01/15/21 16:05:00 EDT, [facility] #78404, Partial fill upon patient request if the [...] 2 Refills, Maintenance, 11/06/20 13:03:00 EDT, Syrup, [facility] #18676, Partial fill upon patient request if the [...] 3 Refills, Maintenance, 02/20/21 12:51:00 EST, Tablet, [facility] #10720, Partial fill upon patient request if the prescription is for a schedule II opioid drug., 160, cm, 01/15/21 14:... Start Date: 02/20/21 Status: Ordered levothyroxine 75 mcg (0.075 mg) oral tablet 1 tablet = 75 mcg, By Mouth, Daily, TK 1 T PO D, # 90 tablet, 1 Refills, Maintenance, 02/19/21 13:28:00 EST, Tablet, [facility] #[id number], Partial fill upon patient request if the prescriptionis for a schedule II opioid drug., 160, cm, ... Start Date: 02/19/21 Status: Ordered lidocaine 4% mucous membrane solution 1 application, Topically, 2 times a day, PRN Pain , Mild, # 1 each, 0 Refills, Maintenance, 05/22/20 16:43:00 EST, [facility] #59428, Partial fill upon patient request if the prescription is for a schedule II opioid drug., 1 application Topi... Start Date: 05/22/20 Status: Ordered midodrine 5 mg oral tablet 1, tablet, By Mouth, 3 times a day, # 90 tablet, Refills 3, Tot. Refills 0, Maintenance, 10/22/20 13:38:00 EDT, Route to Pharmacy Electronically, [facility] #[id number], 160, cm, 09/26/20 14:49:00 EDT, Height, 57.86, [...] 90 capsule, 0 Refills, 02/18/21 14:33:00 EST, [facility] #[id number], 160, cm, 01/15/21 14:39:00 EDT, Height, 57.86, kg, 04/12/20 23:44:00 EST, Dry Weight Start Date: 02/18/21 Status: Ordered traZODone 50 mg oral tablet 2, tablet, By Mouth, Daily at bedtime, # 60 tablet, Refills 2, Route to Pharmacy Electronically, [facility] #[id number], 160, cm, 11/04/20 11:39:00 EDT, Height, 57.86, [...] Myalgia(Confirmed) Active Pre-syncope(Confirmed) Active Orthostatic hypotension(Confirmed) Active *[id number] Care Partn er Tracy Lagosan(Confirmed) Active Pain of right sacroiliac joint(Confirmed) Active Lewy body dementia(Confirmed) Active Tinea cruris(Confirmed) Active Unintentional weight loss(Confirmed) Active Urinary incontinence(Confirmed) Active Vitamin D deficiency(Confirmed) Active Social History Social History Type Response Smoking Status Former smoker entered on: 08/26/15 Sex
--- OUTSIDE RECORDS SUMMARY | 2022-10-25 20:02 | XMS_ITS | Continuity of Care Document ---
Author Name Unknown Organization [facility] Address [address] [place] [address]- Care Team Providers Care Roof Cement And Paint Maker Name Role Phone Destinee JIMENEZ, Roberta Merida Primary Care Physician Encounter [facility] Date(s): 12/18/19 - 01/17/[address] [address]- Allergies, Adverse Reactions, Alerts Substance Reaction Severity [...] mL, 11 Refills, Maintenance, 10/03/19 11:19:00 EDT, [facility] #[id number], 1 drops Eyes, Both 3 times a [...] mL, 3 Refills, Maintenance, 10/04/19 11:21:00 EDT, [facility] #37492, 30, 15 mL By Mouth Daily,PRN: NEEDED FOR CONSTIPATION, 160, cm, 03/22/19 15:22:00 EST, Height Start Date: 10/04/19 Status: Ordered levothyroxine 75 mcg (0.075 mg) oral tablet 1 tablet = 75 mcg, By Mouth, Daily, increase in dose, # 90 tablet, 1 Refills, Maintenance, 11/07/2009:50:00 EDT, Tablet, [facility] #[id number], 160, cm, 03/22/19 15:22:00 EST, Height Start [...] 11 Refills, Maintenance, 12/25/19 10:20:00 EDT, Tablet, [facility] #11142, 160, cm, 12/11/19 13:11:00 EDT, Height Start Date: 12/25/19 Status: Ordered omeprazole 40 mg oral enteric coated capsule 1 capsule, By Mouth, Daily, # 90 capsule, 1 Refills, Maintenance, 11/23/19 15:26:00 EDT, [facility] #[id number], 160, cm, 03/22/19 15:22:00 EST, Height Start Date: 11/23/19 Status: Ordered warfarin 2.5 mg oral tablet 1 tablet, By Mouth, Daily, DIRECTED BY NURSE BASED ON INR RESULTS., # 30 tablet, 11 Refills, Maintenance, 09/18/19 16:11:00 EDT, [facility] #[id number], 160, cm, 03/22/19 15:22:00 EST, Height Start [...] Active Hypotension(Confirmed) Active Myalgia(Confirmed) Active Pre-syncope(Confirmed) Active *[id number] Gina christie- Vimal Mcfarland(Confirmed) Active Pain of right sacroiliac joint(Confirmed) Active Lewy body dementia(Confirmed) Active Tinea cruris(Confirmed) Active Unintentional weight loss(Confirmed) Active Urinary incontinence(Confirmed) Active Vitamin D deficiency(Confirmed) Active Social History Social History Type Response Smoking Status Former smoker entered on: 08/26/15 Sex
--- OUTSIDE RECORDS SUMMARY | 2022-10-25 20:02 | XMS_ITS | Continuity of Care Document ---
Author Name Unknown Organization [facility] Address [address] [place] [address]- Care Team Providers Care Phlebotomy Coordinator Name Role Phone Destinee JIMENEZ, Roberta Merida Primary Care Physician [phone] [facility]counter [facility] Date[facility]): 09/[facility] - 10/15/[address] [address]- Allergies, Adverse Reactions, Alerts Substance Reaction Severity Status penicillin rash Active Immunizations Given and Recorded Vaccine Date Status Refusal Reason [id number] 12y+ bivalent booster vax 03/05/22 Given influenza [...] inactivated 2 05/31/12 Gi davonte SARS-CoV-2 mRNA (eyjekjo-[id number]) vax 06/19/21 Given SARS-CoV-2 (COVID-19) mRNA BNT-162b2 vac 05/17/20 Given SARS-CoV-2 (COVID-19) mRNA BNT-162b2 vac 3 04/26/20 Given pneumococcal 13-valent vaccine 08/31/16 Given pneumococcal 23-valent vaccine 4 05/31/12 Given tetanus/diphtheria/pertussis, acel(Tdap) 5 05/31/12 Given 1Result Comment: incorrect brand entered 2Admin Note: VIS dated 09/13/11 3Result Comment: Administered by Dalia Olguin INSOLE AND OUTSOLE PREPARER 4Admin Note: VIS dated 12/17/08 5Admin Note: VIS dated 04/03/11 Medications Artificial Tears preserved solution 1 drops, Eyes, Both, 4 times a day, PRN Dry Eyes, # 10 mL, 11 Refills, Maintenance, 01/26/22 14:13:00 EST, Ophth Solution, [facility] #[id number], Partial fill upon patient request if the [...] tablet, 5 Refills, Maintenance, 08/26/22 16:55:00 EDT, [facility] #[id number], Please print in bengali, 160, cm, 06/18/22 14:50:00 EDT, Height Start [...] Gm, 1 Refills, Maintenance, 06/18/2314:05:00 EDT, Cream, [facility] #[id number], Partial fill upon patient request if the prescription is for a schedule II opioid drug., 1 applicatio... Start Date: 06/18/22 Status: Ordered docusate sodium 100 mg oral capsule 100 mg, 1, capsule, By Mouth, 2 times a day, PRN, # 60 capsule, Refills 3, Tot. Refills 3, Maintenance, for constipation, 01/26/22 14:13:00 EST, Route to Pharmacy Electronically, [facility]#[id number], Partial fill upon patient request if the pr... Start Date: 01/26/22 Status: Ordered Eucerin Eczema Relief topical cream 1 application, Topically, 2 times a day, # 240 Gm, 5 Refills, Maintenance, 01/15/21 16:05:00 EDT, [facility] #[id number], Partial fill upon patient request if the prescription is for a schedule II opioid drug., 1 application Topically 2 times a d... Start Date: 01/15/21 Status: Ordered guaiFENesin 400 mg oral tablet 1 tablet = 400 mg, By Mouth, Every 4 hours, PRN as needed for congestion and cough, # 30 tablet, 1 Refills, Maintenance, 08/27/21 13:40:00 EDT, Tablet, [facility] #[id number], Partial fill upon patient request if the [...] 2 Refills, Maintenance, 08/17/21 13:14:00 EDT, Syrup, [facility] #[id number], 15 mL By Mouth Daily,PRN:as needed for constipation, 160, cm, 06/19/21 12:57:00 EDT, Height, 5... Start Date: 08/17/21 Status: Ordered Large Pull Up Diapers Large Pull Up Diapers, See Instructions, # 240 each, Refills 11, Tot. Refills 11, Maintenance, Use up to 8 daily as needed for urinary and stool incontinence R32 R15.9. To replace regular diapers, 10/12/22 8:50:00 EDT, Supply Start Date: 10/12/22 Status: Ordered levETIRAcetam 500 mg oral tablet 1 tablet = 500 mg, By Mouth, 2 times a day, # 60 tablet, 5 Refills, Maintenance, 08/26/22 16:54:00 EDT, [facility][id number], Partial fill upon patient request if the prescription is for a schedule II opioid drug., 160, cm, 06/18/22 14:... Start Date: 08/26/22 Status: Ordered levothyroxine 75 mcg (0.075 mg) oral tablet 1 tablet = 75 mcg, By Mouth, Daily, TK 1 T PO D, # 90 tablet, 1 Refills, Maintenance, 04/21/22 9:43:00 EST, [facility] #[id number], Partial fill upon patient request if the prescription is for a schedule II opioid drug., 160, cm, ... Start Date: 04/21/22 Status: Ordered lidocaine 4% mucous membrane solution 1 application, Topically, 2 times a day, PRN Pain , Mild, # 1 each, 0 Refills, Maintenance, 05/22/20 16:43:00 EST, [facility] #[id number], Partial fill upon patient request if the prescription is for a schedule II opioid drug., 1 application Topi... Start Date: 05/22/20 Status: Ordered midodrine 5 mg oral tablet 1, tablet, By Mouth, 3 times a day, # 90 tablet, Refills 3, Tot. Refills 3, Maintenance, 10/27/21 15:24:00 EDT, Route to Pharmacy Electronically, [facility] #[id number], 160, cm, 08/27/21 13:11:00 EDT, Height, 57.86, kg, 04/12/20 23:44:00 EST, Start Date: 10/27/21 Status: Ordered Nutritional Supplements See Instructions, # 90 each, Refills 11, Tot. 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 iwafncslV47.4, G31.83, 07/09/22 17:02:00 EDT, Supply Start Date: 07/09/22 Status: Ordered omeprazole 40 mg oral enteric coated capsule 1 capsule, By Mouth, Daily, # 90 capsule, 1 Refills, 09/15/22 16:21:00 EDT, [facility] #[id number], 160, cm, 06/18/22 14:50:00 EDT, Height Start [...] 05/03/22 11:14:00 EST, Route to Pharmacy Electronically, [facility] #[id number], 160, cm, 04/19/22 17:27:00 EST, Height Start Date: 05/03/22 Status: Ordered Urinal See Instructions, # 3 each, Refills 0, Tot. Refills 0, Maintenance, Use as needed for urinating. 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 Z74.01, G31.83, 05/22/20 17:15:00 EST, Supply Start Date: 05/22/20 Status: Ordered Washable [employer] Bed Pads Washable [employer] Bed Pads, See Instructions, # 4 each, Refills 1, Tot. Refills 1, Maintenance, Use as needed for total incontinence, bedbound N39.498, Z74.01, 06/01/22 12:08:00 EDT, Supply Start Date: 06/01/22 Status: Ordered wipes wipes, See Instructions, # 5 pack/packet, Refills 11, Tot. Refills 11, Maintenance, Use to clean patient for urinary and stool incontinence R15.9, R32, 10/12/22 8:51:00 EDT, Supply Start Date: 10/12/22 Status: Ordered Problem List Condition Confirmation Course [...] Pre-syncope Confirmed Active Orthostatic hypotension Confirmed Active *[id number] Conductor/Brakeman Yi Campos Confirmed Active Pain of right sacroiliac joint Confirmed Active Seizures Confirmed Active Lewy body dementia Confirmed Active Tinea cruris Confirmed Active Unintentional weight loss Confirmed Active Urinary incontinence Confirmed Active Vitamin D deficiency Confirmed Active Social History Social History Type Response Smoking Status Former smoker entered on: 08/26/15 Sex Patient Care team information Care Team Personnel Name: Matilde Mahmood RN Position: [facility] RN Member Role: Primary Care Nurse Name: Roberta Felipe NP Position: [facility] PCO Associate Professional Member Role: PCP Address: Address: [address] [place] [address]- Name: Maci Kruse RN Position: [facility] SN RN Member Role: Primary Care Nurse Name: Lyudmila Ortez RN Position: [facility] RN Member Role: Primary Care Nurse Name: Lilo Maldonado RN Position: [facility] RN Member Role: Primary Care Nurse Name: Anuj Murillo RN Position: [facility] RN Member Role: Primary Care Nurse Name: Jasmin Oliva Position: [facility] Outreach Member Role: Lifetime Consulting Physician Name: Suzanne Celeste RN Position: [facility] RN Member Role: Primary Care Nurse Name: Lily Solis RN Position: [facility] Onco RN Member Role: Primary Care Nurse Name: Adela Tadeo RN Position: [facility] RN Member Role: Primary Care Nurse Name: Nancy Morrow RN Position: [facility] RN Member Role: Primary Care Nurse Name: Etta Dewitt RN Position: [facility] RN Member Role: Primary Care Nurse Care Team Related Persons Name: ORQUIDEA JESSIKA Address: home [address] [address] Name: JESSICA JOSUE Address: home [address] [place] [address] Name: CARLOS CEJA Address: home [address] [address]
--- OUTSIDE RECORDS SUMMARY | 2022-10-25 20:02 | XMS_ITS | Continuity of Care Document ---
Author Name Unknown Organization [facility] Address [address] [place] [address]- Care Team Providers Care Customs And Border Protection Inspector Name Role Phone Roberta Felipe NP Primary Care Physician [phone] [facility]): 10/[facility]20 - 11/08/[address] [address] Allergies, Adverse Reactions, Alerts Substance Reaction Severity [...] Given 1Result Comment: Administered by Dalia Olguin DIRECTOR OF PLANNING 2Result Comment: incorrect brand entered 3Admin Note: VIS dated 09/13/11 4Admin Note: VIS dated 12/17/08 5Admin Note: VIS dated 04/03/11 Medications Artificial Tears preserved solution 1 drops, Eyes, Both, 4 times a day, PRN Dry Eyes, # 10 mL, 11 Refills, Maintenance, 11/06/20 13:04:00 EDT, Ophth Solution, [facility] #[id number], Partial fill upon patient request if the [...] tablet, 5 Refills, Maintenance, 10/28/20 15:23:00 EDT, [facility] #[id number], has Cr of 1.3, so should goup [...] 2 Refills, Maintenance, 11/06/20 13:03:00 EDT, Syrup, [facility] #[id number], Partial fill upon patient request if the [...] 2 Refills, Maintenance, 09/29/20 16:10:00 EDT, Tablet, [facility] #[id number], Partial fill upon patient request ifthe prescription is for a schedule II opioid drug.,... Start Date: 09/29/20 Status: Ordered levothyroxine 75 mcg (0.075 mg) oral tablet 1 tablet = 75 mcg, By Mouth, Daily, TK 1 T PO D, # 90 tablet, 1 Refills, Maintenance, 09/16/20 14:56:00 EDT, Tablet, [facility] #[id number], Partial fill upon patient request if the prescriptionis for a schedule II opioid drug., 160, cm, ... Start Date: 09/16/20 Stop Date: 01/14/21 Status: Ordered lidocaine 4% mucous membrane solution 1 application, Topically, 2 times a day, PRN Pain , Mild, # 1 each, 0 Refills, Maintenance, 05/22/20 16:43:00 EST, [facility] #[id number], Partial fill upon patient request if the prescription is for a schedule II opioid drug., 1 application Topi... Start Date: 05/22/20 Status: Ordered midodrine 5 mg oral tablet 1, tablet, By Mouth, 3 times a day, # 90 tablet, Refills 3, Tot. Refills 0, Maintenance, 10/22/20 13:38:00 EDT, Route to Pharmacy Electronically, [facility] #[id number], 160, cm, 09/26/20 14:49:00 EDT, Height, 57.86, [...] capsule, 0 Refills, Maintenance, 09/10/20 8:11:00 EDT, [facility] #[id number], 160, cm, 08/21/20 12:36:00 EDT, Height, 57.86, kg, 04/12/20 23:44:00 EST, Dry Weight Start Date: 09/10/20 Status: Ordered traZODone 50 mg oral tablet 2, tablet, By Mouth, Daily at bedtime, # 60 tablet, Refills 3, Tot. Refills 0, Maintenance, 07/15/20 10:03:00 EDT, Route to Pharmacy Electronically, [facility] #[id number], 160, cm, 05/21/20 9:12:00 EST, Height, 57.86, [...] Myalgia(Confirmed) Active Pre-syncope(Confirmed) Active Orthostatic hypotension(Confirmed) Active *[id number] Care Partn er Tracy Hurst(Confirmed) Active Pain of right sacroiliac joint(Confirmed) Active Lewy body dementia(Confirmed) Active Tinea cruris(Confirmed) Active Unintentional weight loss(Confirmed) Active Urinary incontinence(Confirmed) Active Vitamin D deficiency(Confirmed) Active Social History Social History Type Response Smoking Status Former smoker entered on: 08/26/15 Sex
--- OUTSIDE RECORDS SUMMARY | 2022-10-25 20:02 | XMS_ITS | Continuity of Care Document ---
Author Name Unknown Organization [facility] Address [address] [place] [address]- Care Team Providers Care Steam Conditioning Operator Name Role Phone Roberta Felipe NP Primary Care Physician [facility]): 06/10/20 - 07/10/[address] [address] Allergies, Adverse Reactions, Alerts [...] Given 1Result Comment: Administered by Dalia Olguin CASTING AGENT 2Result Comment: incorrect brand entered 3Admin Note: VIS dated 09/13/11 4Admin Note: VIS dated 12/17/08 5Admin Note: VIS dated 04/03/11 Medications apixaban 2.5 mg oral tablet 1 tablet = 2.5 mg, By Mouth, 2 times a day, Transitioning from warfarin to apixaban, # 60 tablet, 11 Refills, Maintenance, 06/24/20 14:40:00 EDT, Tablet, [facility] #[id number], Partial fill upon patient request if the [...] 3 Refills, Maintenance, 05/19/20 14:56:00 EST, Tablet, [facility] #75009, Partial fill upon patient request if the prescriptionis for a schedule II opioid drug., 160, cm, ... Start Date: 05/19/20 Stop Date: 09/16/20 Status: Ordered lidocaine 4% mucous membrane solution 1 application, Topically, 2 times a day, PRN Pain , Mild, # 1 each, 0 Refills, Maintenance, 05/22/20 16:43:00 EST, [facility] #[id number], Partial fill upon patient request if the prescription is for a schedule II opioid drug., 1 application Topi... Start Date: 05/22/20 Status: Ordered midodrine 5 mg oral tablet 5 mg, 1, tablet, By Mouth, 3 times a day, lower dose tablet, # 90 tablet, Refills 3, Tot. Refills 3, Maintenance, 06/23/20 14:16:00 EDT, Route to Pharmacy Electronically, [facility] #[id number],Partial fill upon patient request if the prescripti... [...] capsule, 0 Refills, Maintenance, 06/23/20 8:58:00 EDT, [facility] #[id number], 160, cm, 05/21/20 9:12:00 EST, Height, 57.86, [...] Myalgia(Confirmed) Active Pre-syncope(Confirmed) Active Orthostatic hypotension(Confirmed) Active *[id number] Care Partn er Tracyyusuf Hurst(Confirmed) Active Pain of right sacroiliac joint(Confirmed) Active Lewy body dementia(Confirmed) Active Tinea cruris(Confirmed) Active Unintentional weight loss(Confirmed) Active Urinary incontinence(Confirmed) Active Vitamin D deficiency(Confirmed) Active Social History Social History Type Response Smoking Status Former smoker entered on: 08/26/15 Sex
--- OUTSIDE RECORDS SUMMARY | 2022-10-25 20:02 | XMS_ITS | Continuity of Care Document ---
Author Name Unknown Organization [facility] Address [address] [place] [address]- Care Team Providers Care Independent Beauty Consultant Name Role Phone Roberta Felipe NP Primary Care Physician [facility] Date(s): 07/15/20 - 08/14/[address] [address]- Allergies, Adverse Reactions, Alerts Substance Reaction Severity [...] Given 1Result Comment: Administered by Dalia Olguin ADMINISTRATIVE INTERN 2Result Comment: incorrect brand entered 3Admin Note: VIS dated 09/13/11 4Admin Note: VIS dated 12/17/08 5Admin Note: VIS dated 04/03/11 Medications apixaban 2.5 mg oral tablet 1 tablet = 2.5 mg, By Mouth, 2 times a day, Transitioning from warfarin to apixaban, # 60 tablet, 11 Refills, Maintenance, 06/24/20 14:40:00 EDT, [facility] #[id number], Partial fill upon patient request if the [...] 2 Refills, Maintenance, 08/08/20 16:52:00 EDT, Tablet, [facility] #[id number], Partial fill upon patient request if the prescription is for a schedule II opioid drug., 160, cm, 07/18/20 15:... Start Date: 08/08/20 Stop Date: 11/06/20 Status: Ordered levothyroxine 75 mcg (0.075 mg) oral tablet 1 tablet = 75 mcg, By Mouth, Daily, TK 1 T PO D, # 30 tablet, 3 Refills, Maintenance, 05/19/20 14:56:00 EST, Tablet, [facility] #[id number], Partial fill upon patient request if the prescriptionis for a schedule II opioid drug., 160, cm, ... Start Date: 05/19/20 Stop Date: 09/16/20 Status: Ordered lidocaine 4% mucous membrane solution 1 application, Topically, 2 times a day, PRN Pain , Mild, # 1 each, 0 Refills, Maintenance, 05/22/20 16:43:00 EST, [facility] #[id number], Partial fill upon patient request if the prescription is for a schedule II opioid drug., 1 application Topi... Start Date: 05/22/20 Status: Ordered midodrine 5 mg oral tablet 5 mg, 1, tablet, By Mouth, 3 times a day, lower dose tablet, # 90 tablet, Refills 3, Tot. Refills 3, Maintenance, 06/23/20 14:16:00 EDT, Route to Pharmacy Electronically, [facility] #[id number],Partial fill upon patient request if the prescripti... [...] capsule, 0 Refills, Maintenance, 06/23/20 8:58:00 EDT, [facility] #[id number], 160, cm, 05/21/20 9:12:00 EST, Height, 57.86, kg, 04/12/20 23:44:00 EST, Dry Weight Start Date: 06/23/20 Status: Ordered traZODone 50 mg oral tablet 2, tablet, By Mouth, Daily at bedtime, # 60 tablet, Refills 3, Tot. Refills 0, Maintenance, 07/15/20 10:03:00 EDT, Route to Pharmacy Electronically, [facility] #[id number], 160, cm, 05/21/20 9:12:00 EST, Height, 57.86, [...] Myalgia(Confirmed) Active Pre-syncope(Confirmed) Active Orthostatic hypotension(Confirmed) Active *[id number] Care Partn er Tracy Hurst(Confirmed) Active Pain of right sacroiliac joint(Confirmed) Active Lewy body dementia(Confirmed) Active Tinea cruris(Confirmed) Active Unintentional weight loss(Confirmed) Active Urinary incontinence(Confirmed) Active Vitamin D deficiency(Confirmed) Active Social History Social History Type Response Smoking Status Former smoker entered on: 08/26/15 Sex
--- OUTSIDE RECORDS SUMMARY | 2022-10-25 20:02 | XMS_ITS | Continuity of Care Document ---
Author Name Unknown Organization [facility] Address [address] [place] [address]- Care Team Providers Care Drum Filler Name Role Phone Roberta Felipe NP Primary Care Physician Encounter [facility] Date(s): 06/13/20 - 07/13/[address] [address]- Allergies, Adverse Reactions, Alerts Substance Reaction Severity [...] Given 1Result Comment: Administered by Dalia Olguin SEAT COVERER 2Result Comment: incorrect brand entered 3Admin Note: VIS dated 09/13/11 4Admin Note: VIS dated 12/17/08 5Admin Note: VIS dated 04/03/11 Medications apixaban 2.5 mg oral tablet 1 tablet = 2.5 mg, By Mouth, 2 times a day, Transitioning from warfarin to apixaban, # 60 tablet, 11 Refills, Maintenance, 06/24/20 14:40:00 EDT, Tablet, [facility] #[id number], Partial fill upon patient request if the [...] 3 Refills, Maintenance, 05/19/20 14:56:00 EST, Tablet, [facility] #[id number], Partial fill upon patient request if the prescriptionis for a schedule II opioid drug., 160, cm, ... Start Date: 05/19/20 Stop Date: 09/16/20 Status: Ordered lidocaine 4% mucous membrane solution 1 application, Topically, 2 times a day, PRN Pain , Mild, # 1 each, 0 Refills, Maintenance, 05/22/20 16:43:00 EST, [facility] #[id number], Partial fill upon patient request if the prescription is for a schedule II opioid drug., 1 application Topi... Start Date: 05/22/20 Status: Ordered midodrine 5 mg oral tablet 5 mg, 1, tablet, By Mouth, 3 times a day, lower dose tablet, # 90 tablet, Refills 3, Tot. Refills 3, Maintenance, 06/23/20 14:16:00 EDT, Route to Pharmacy Electronically, [facility] #[id number],Partial fill upon patient request if the prescripti... [...] capsule, 0 Refills, Maintenance, 06/23/20 8:58:00 EDT, [facility] #[id number], 160, cm, 05/21/20 9:12:00 EST, Height, 57.86, [...] Myalgia(Confirmed) Active Pre-syncope(Confirmed) Active Orthostatic hypotension(Confirmed) Active *[id number] Care Partn er Tracyyusuf Hurst(Confirmed) Active Pain of right sacroiliac joint(Confirmed) Active Lewy body dementia(Confirmed) Active Tinea cruris(Confirmed) Active Unintentional weight loss(Confirmed) Active Urinary incontinence(Confirmed) Active Vitamin D deficiency(Confirmed) Active Social History Social History Type Response Smoking Status Former smoker entered on: 08/26/15 Sex
--- OUTSIDE RECORDS SUMMARY | 2022-10-25 20:02 | XMS_ITS | Continuity of Care Document ---
Author Name Unknown Organization [facility] Address [address] [place] [address]- Care Team Providers Care Classics Professor Name Role Phone Destinee JIMENEZ, Roberta Merida Primary Care Physician [facility] Date[facility]s): 02/26/20 - 03/27/[address] [address]- Allergies, Adverse Reactions, Alerts Substance Reaction Severity [...] mL, 11 Refills, Maintenance, 10/03/19 11:19:00 EDT, [facility] #[id number], 1 drops Eyes, Both 3 times a [...] mL, 3 Refills, Maintenance, 10/04/19 11:21:00 EDT, [facility] #[id number], 30, 15 mL By Mouth Daily,PRN: NEEDED FOR CONSTIPATION, 160, cm, 03/22/19 15:22:00 EST, Height Start Date: 10/04/19 Status: Ordered levothyroxine 75 mcg (0.075 mg) oral tablet 1 tablet = 75 mcg, By Mouth, Daily, increase in dose, # 90 tablet, 1 Refills, Maintenance, 11/07/2009:50:00 EDT, Tablet, [facility] #[id number], 160, cm, 03/22/19 15:22:00 EST, Height Start Date: 11/08/19 Stop Date: 11/02/20 Status: Ordered midodrine 10 mg oral tablet 0.5 tablet = 5 mg, By Mouth, 3 times a day, # 45 tablet, 5 Refills, Maintenance, 03/27/20 10:17:00 EST, Tablet, [facility] #[id number], Partial fill upon patient request if the prescription is for a schedule II opioid drug., 160, cm, 03/13/20 8:2... Start Date: 03/27/20 Stop Date: 09/23/20 Status: Ordered omeprazole 40 mg oral enteric coated capsule 1 capsule, By Mouth, Daily, # 90 capsule, 1 Refills, Maintenance, 11/23/19 15:26:00 EDT, [facility] #[id number], 160, cm, 03/22/19 15:22:00 EST, Height Start [...] Maintenance,03/27/20 10:16:00 EST, Route to Pharmacy Electronically, [facility] #[id number], Partial fill upon patient request if the prescription is for a sc... Start Date: 03/27/20 Stop Date: 07/25/20 Status: Ordered warfarin 2.5 mg oral tablet 1 tablet, By Mouth, Daily, DIRECTED BY NURSE BASED ON INR RESULTS., # 30 tablet, 11 Refills, Maintenance, 09/18/19 16:11:00 EDT, [facility] #[id number], 160, cm, 03/22/19 15:22:00 EST, Height Start [...] Myalgia(Confirmed) Active Pre-syncope(Confirmed) Active Orthostatic hypotension(Confirmed) Active *[id number] Care Partn er Tracyyusuf Hurst(Confirmed) Active Pain of right sacroiliac joint(Confirmed) Active Lewy body dementia(Confirmed) Active Tinea cruris(Confirmed) Active Unintentional weight loss(Confirmed) Active Urinary incontinence(Confirmed) Active Vitamin D deficiency(Confirmed) Active Social History Social History Type Response Smoking Status Former smoker entered on: 08/26/15 Sex
--- OUTSIDE RECORDS SUMMARY | 2022-10-25 20:02 | XMS_ITS | Continuity of Care Document ---
Author Name Unknown Organization [facility] Address [address] [place] [address]- Care Team Providers Care Talend Etl Developer Name Role Phone Destinee JIMENEZ, Roberta Merida Primary Care Physician [phone] [facility]counter [facility] Date(s): 04/09/20 - 05/09/[address] [address]- Allergies, Adverse Reactions, Alerts Substance Reaction Severity [...] capsule, 0 Refills, Maintenance, 04/16/20 14:22:00 EST, [facility] #[id number], 160, cm, 04/16/20 8:39:00 EST, Height, 57.86, kg, 04/12/20 23:44:00 EST, Dry Weight Start Date: 04/16/20 Status: Ordered traZODone 50 mg oral tablet TAKE 2 TABLETS BY MOUTH DAILY AT BEDTIME Start Date: 04/12/20 Status: Ordered warfarin 3 mg oral tablet 1 tablet = 3 mg, By Mouth, Daily, # 30 tablet, 0 Refills, Maintenance, 04/16/20 12:40:00 EST, Tablet, [facility] #[id number], Partial fill upon patient request if the [...] Myalgia(Confirmed) Active Pre-syncope(Confirmed) Active Orthostatic hypotension(Confirmed) Active *[id number] Care Partn er Tracy Natali(Confirmed) Active Pain of right sacroiliac joint(Confirmed) Active Lewy body dementia(Confirmed) Active Tinea cruris(Confirmed) Active Unintentional weight loss(Confirmed) Active Urinary incontinence(Confirmed) Active Vitamin D deficiency(Confirmed) Active Social History Social History Type Response Smoking Status Former smoker entered on: 08/26/15 Sex
--- OUTSIDE RECORDS SUMMARY | 2022-10-25 20:02 | XMS_ITS | Continuity of Care Document ---
Author Name Unknown Organization [facility] Address [address] [place] [address]- Care Team Providers Care Washtub Worker Helper Name Role Phone Destinee JIMENEZ, Roberta Merida Primary Care Physician [facility] Date(s): 12/14/21 - 02/12/[address] [address]- Attending Physician: Not on Staff, Attending MD Allergies, Adverse Reactions, Alerts Substance Reaction Severity Status penicillin rash Active Immunizations Given and Recorded Vaccine Date Status Refusal Reason SARS-CoV-2 mRNA ([id number]) vax 06/19/21 Given influenza virus vaccine, inactivated [...] 09/13/11 3Result Comment: Administered by Dalia Olguin FLIGHT TEST MECHANIC 4Admin Note: VIS dated 12/17/08 5Admin Note: VIS dated 04/03/11 Medications Artificial Tears preserved solution 1 drops, Eyes, Both, 4 times a day, PRN Dry Eyes, # 10 mL, 11 Refills, Maintenance, 01/26/22 14:13:00 EST, Ophth Solution, [facility] #[id number], Partial fill upon patient request if the [...] tablet, 5 Refills, Maintenance, 10/26/21 14:08:00 EDT, [facility] #[id number], Please print in luxembourger, 160, cm, 08/27/21 13:11:00 EDT, Height, 57.86, [...] 01/26/22 14:13:00 EST, Route to Pharmacy Electronically, [facility][id number], Partial fill upon patient request if the pr... Start Date: 01/26/22 Status: Ordered Eucerin Eczema Relief topical cream 1 application, Topically, 2 times a day, # 240 Gm, 5 Refills, Maintenance, 01/15/21 16:05:00 EDT, [facility] #[id number], Partial fill upon patient request if the prescription is for a schedule II opioid drug., 1 application Topically 2 times a d... Start Date: 01/15/21 Status: Ordered guaiFENesin 400 mg oral tablet 1 tablet = 400 mg, By Mouth, Every 4 hours, PRN as needed for congestion and cough, # 30 tablet, 1 Refills, Maintenance, 08/27/21 13:40:00 EDT, Tablet, [facility] #[id number], Partial fill upon patient request if the [...] 2 Refills, Maintenance, 08/17/21 13:14:00 EDT, Syrup, [facility] #[id number], 15 mL By Mouth Daily,PRN:as needed for [...] 5 Refills, Maintenance, 10/26/21 14:08:00 EDT, Tablet, [facility] #[id number], Partial fill upon patient request if the prescription is for a schedule II opioid drug., 160, cm, 08/27/21 13:... Start Date: 10/26/21 Status: Ordered levothyroxine 75 mcg (0.075 mg) oral tablet 1 tablet = 75 mcg, By Mouth, Daily, TK 1 T PO D, # 90 tablet, 1 Refills, Maintenance, 11/23/21 16:42:00 EDT, [facility] #[id number], Partial fill upon patient request if the prescriptionis for a schedule II opioid drug., 160, cm, ... Start Date: 11/23/21 Status: Ordered lidocaine 4% mucous membrane solution 1 application, Topically, 2 times a day, PRN Pain , Mild, # 1 each, 0 Refills, Maintenance, 05/22/20 16:43:00 EST, [facility] #[id number], Partial fill upon patient request if the prescription is for a schedule II opioid drug., 1 application Topi... Start Date: 05/22/20 Status: Ordered midodrine 5 mg oral tablet 1, tablet, By Mouth, 3 times a day, # 90 tablet, Refills 3, Tot. Refills 3, Maintenance, 10/27/21 15:24:00 EDT, Route to Pharmacy Electronically, [facility] #[id number], 160, cm, 08/27/21 13:11:00 EDT, Height, 57.86, [...] 90 capsule, 1 Refills, 11/23/21 16:42:00 EDT, [facility] #[id number], 160, cm, 08/27/21 13:11:00 EDT, Height, 57.86, kg, 04/12/20 23:44:00 EST, Dry Weight Start Date: 11/23/21 Status: Ordered traZODone 50 mg oral tablet 2, tablet, By Mouth, Daily at bedtime, # 60 tablet, Refills 2, Route to Pharmacy Electronically, [facility] #[id number], 160, cm, 11/04/20 11:39:00 EDT, Height, 57.86, [...] Pre-syncope Confirmed Active Orthostatic hypotension Confirmed Active *[id number] Casino Duty Manager Juliette Rand Confirmed Active Pain of right sacroiliac joint Confirmed Active Seizures Confirmed Active Lewy body dementia Confirmed Active Tinea cruris Confirmed Active Unintentional weight loss Confirmed Active Urinary incontinence Confirmed Active Vitamin D deficiency Confirmed Active Social History Social History Type Response Smoking Status Former smoker entered on: 08/26/15 Sex Patient Care team information Care Team Personnel Name: Matilde Mahmood RN Position: [facility] RN Member Role: Primary Care Nurse Name: Roberta Felipe NP Position: [facility] PCO Associate Professional Member Role: PCP Address: Address: [address] [place] [address] Name: ALESSANDRO VILLATORO RN Position: [facility] RN Member Role: Primary Care Nurse Name: Lilo Maldonado RN Position: [facility] RN Member Role: Primary Care Nurse Name: Anuj Murillo RN Position: [facility] RN Member Role: Primary Care Nurse Name: Jasmin Oliva Position: [facility] Outreach Member Role: Lifetime Consulting Physician Name: Suzanne Celeste RN Position: [facility] RN Member Role: Primary Care Nurse Name: Lily Solis RN Position: [facility] Onco RN Member Role: Primary Care Nurse Name: Adela Tadeo RN Position: [facility] RN Member Role: Primary Care Nurse Name: Maci Jones RN Position: [facility] RN Member Role: Primary Care Nurse Name: Nancy Morrow RN Position: [facility] RN Member Role: Primary Care Nurse Name: Etta Dewitt RN Position: [facility] RN Member Role: Primary Care Nurse Care Team Related Persons Name: ORQUIDEA JESSIKA Address: home [address] [place] [address] Name: JESSICA JOSUE Address: home [address] [place] [address] Name: CARLOS CEJA Address: home [address] [place] [address]
--- OUTSIDE RECORDS SUMMARY | 2022-10-25 20:02 | XMS_ITS | Continuity of Care Document ---
Author Name Unknown Organization [facility] Address [address] [place] [address]- Care Team Providers Care Family Development Specialist Name Role Phone Destinee JIMENEZ, Roberta Merida Primary Care Physician En[place] [facility] Date(s): 01/26/22 - 02/25/[address] [address]- Allergies, Adverse Reactions, Alerts Substance Reaction Severity Status penicillin rash Active Immunizations Given and Recorded Vaccine Date Status Refusal Reason SARS-CoV-2 mRNA (taqfseu-[id number]) vax 06/19/21 Given influenza virus vaccine, inactivated [...] 09/13/11 3Result Comment: Administered by Dalia Olguin CAR BUILDER 4Admin Note: VIS dated 12/17/08 5Admin Note: VIS dated 04/03/11 Medications Artificial Tears preserved solution 1 drops, Eyes, Both, 4 times a day, PRN Dry Eyes, # 10 mL, 11 Refills, Maintenance, 01/26/22 14:13:00 EST, Ophth Solution, [facility] #[id number], Partial fill upon patient request if the [...] tablet, 5 Refills, Maintenance, 10/26/21 14:08:00 EDT, [facility] #[id number], Please print in croatian, 160, cm, 08/27/21 13:11:00 EDT, Height, 57.86, [...] 01/26/22 14:13:00 EST, Route to Pharmacy Electronically, [facility]#[id number], Partial fill upon patient request if the pr... Start Date: 01/26/22 Status: Ordered Eucerin Eczema Relief topical cream 1 application, Topically, 2 times a day, # 240 Gm, 5 Refills, Maintenance, 01/15/21 16:05:00 EDT, [facility] #[id number], Partial fill upon patient request if the prescription is for a schedule II opioid drug., 1 application Topically 2 times a d... Start Date: 01/15/21 Status: Ordered guaiFENesin 400 mg oral tablet 1 tablet = 400 mg, By Mouth, Every 4 hours, PRN as needed for congestion and cough, # 30 tablet, 1 Refills, Maintenance, 08/27/21 13:40:00 EDT, Tablet, [facility] #[id number], Partial fill upon patient request if the [...] 2 Refills, Maintenance, 08/17/21 13:14:00 EDT, Syrup, [facility] #[id number], 15 mL By Mouth Daily,PRN:as needed for [...] 5 Refills, Maintenance, 10/26/21 14:08:00 EDT, Tablet, [facility] #[id number], Partial fill upon patient request if the prescription is for a schedule II opioid drug., 160, cm, 08/27/21 13:... Start Date: 10/26/21 Status: Ordered levothyroxine 75 mcg (0.075 mg) oral tablet 1 tablet = 75 mcg, By Mouth, Daily, TK 1 T PO D, # 90 tablet, 1 Refills, Maintenance, 11/23/21 16:42:00 EDT, [facility] #[id number], Partial fill upon patient request if the prescriptionis for a schedule II opioid drug., 160, cm, ... Start Date: 11/23/21 Status: Ordered lidocaine 4% mucous membrane solution 1 application, Topically, 2 times a day, PRN Pain , Mild, # 1 each, 0 Refills, Maintenance, 05/22/20 16:43:00 EST, [facility] #41545, Partial fill upon patient request if the prescription is for a schedule II opioid drug., 1 application Topi... Start Date: 05/22/20 Status: Ordered midodrine 5 mg oral tablet 1, tablet, By Mouth, 3 times a day, # 90 tablet, Refills 3, Tot. Refills 3, Maintenance, 10/27/21 15:24:00 EDT, Route to Pharmacy Electronically, [facility] #[id number], 160, cm, 08/27/21 13:11:00 EDT, Height, 57.86, [...] 90 capsule, 1 Refills, 11/23/21 16:42:00 EDT, [facility] #[id number], 160, cm, 08/27/21 13:11:00 EDT, Height, 57.86, kg, 04/12/20 23:44:00 EST, Dry Weight Start Date: 11/23/21 Status: Ordered traZODone 50 mg oral tablet 2, tablet, By Mouth, Daily at bedtime, # 60 tablet, Refills 2, Route to Pharmacy Electronically, [facility] #[id number], 160, cm, 11/04/20 11:39:00 EDT, Height, 57.86, [...] Pre-syncope Confirmed Active Orthostatic hypotension Confirmed Active *[id number] Storeroom Attendant Juliette Rand Confirmed Active Pain of right sacroiliac joint Confirmed Active Seizures Confirmed Active Lewy body dementia Confirmed Active Tinea cruris Confirmed Active Unintentional weight loss Confirmed Active Urinary incontinence Confirmed Active Vitamin D deficiency Confirmed Active Social History Social History Type Response Smoking Status Former smoker entered on: 08/26/15 Sex Patient Care team information Care Team Personnel Name: Matilde Mahmood RN Position: [facility] RN Member Role: Primary Care Nurse Name: Roberta Felipe NP Position: [facility] PCO Associate Professional Member Role: PCP Address: Address: [address] [place] [address] Name: ALESSANDRO VILLATORO RN Position: [facility] RN Member Role: Primary Care Nurse Name: Lilo Maldonado RN Position: [facility] RN Member Role: Primary Care Nurse Name: Anuj Murillo RN Position: [facility] RN Member Role: Primary Care Nurse Name: Jasmin Oliva Position: [facility] Outreach Member Role: Lifetime Consulting Physician Name: Suzanne Celeste RN Position: [facility] RN Member Role: Primary Care Nurse Name: Lily Solis RN Position: [facility] Onco RN Member Role: Primary Care Nurse Name: Adela Tadeo RN Position: [facility] RN Member Role: Primary Care Nurse Name: Maci Jones RN Position: [facility] RN Member Role: Primary Care Nurse Name: Nancy Morrow RN Position: [facility] RN Member Role: Primary Care Nurse Name: Etta Dewitt RN Position: [facility] RN Member Role: Primary Care Nurse Care Team Related Persons Name: JESSIKA HEARD Address: home [address] [place] [address] Name: JESSICA JOSUE Address: home [address] [place] [address] Name: CARLOS CEJA Address: home [address] [place] [address]
--- OUTSIDE RECORDS SUMMARY | 2022-10-25 20:02 | XMS_ITS | Continuity of Care Document ---
Author Name Unknown Organization [facility] Address [address] [place] [address]- Care Team Providers Care Residential Therapist Name Role Phone Destinee JIMENEZ, Roberta Merida Primary Care Physician [facility] Date(s): 04/09/20 - 05/09/[address] [address]- Allergies, Adverse Reactions, Alerts Substance Reaction Severity [...] capsule, 0 Refills, Maintenance, 04/16/20 14:22:00 EST, [facility] #[id number], 160, cm, 04/16/20 8:39:00 EST, Height, 57.86, kg, 04/12/20 23:44:00 EST, Dry Weight Start Date: 04/16/20 Status: Ordered traZODone 50 mg oral tablet TAKE 2 TABLETS BY MOUTH DAILY AT BEDTIME Start Date: 04/12/20 Status: Ordered warfarin 3 mg oral tablet 1 tablet = 3 mg, By Mouth, Daily, # 30 tablet, 0 Refills, Maintenance, 04/16/20 12:40:00 EST, Tablet, [facility] #[id number], Partial fill upon patient request if the [...] Myalgia(Confirmed) Active Pre-syncope(Confirmed) Active Orthostatic hypotension(Confirmed) Active *[id number] Care Partn er Tracy Natali(Confirmed) Active Pain of right sacroiliac joint(Confirmed) Active Lewy body dementia(Confirmed) Active Tinea cruris(Confirmed) Active Unintentional weight loss(Confirmed) Active Urinary incontinence(Confirmed) Active Vitamin D deficiency(Confirmed) Active Social History Social History Type Response Smoking Status Former smoker entered on: 08/26/15 Sex
--- OUTSIDE RECORDS SUMMARY | 2022-10-25 20:02 | XMS_ITS | Continuity of Care Document ---
Author Name Unknown Organization [facility] Address [address] [place] [address]- Care Team Providers Care Movie Theater Usher Name Role Phone Destinee JIMENEZ, Roberta Merida Primary Care Physician [phone] Encounter [facility] Date(s): 04/15/20 - 05/15/[address] [address]- Allergies, Adverse Reactions, Alerts Substance Reaction Severity [...] capsule, 0 Refills, Maintenance, 04/16/20 14:22:00 EST, [email or web address] #[id number], 160, cm, 04/16/20 8:39:00 EST, Height, 57.86, kg, 04/12/20 23:44:00 EST, Dry Weight Start Date: 04/16/20 Status: Ordered traZODone 50 mg oral tablet TAKE 2 TABLETS BY MOUTH DAILY AT BEDTIME Start Date: 04/12/20 Status: Ordered warfarin 3 mg oral tablet 1 tablet = 3 mg, By Mouth, Daily, # 30 tablet, 0 Refills, Maintenance, 04/16/20 12:40:00 EST, Tablet, [email or web address] #[id number], Partial fill upon patient request if the [...] Myalgia(Confirmed) Active Pre-syncope(Confirmed) Active Orthostatic hypotension(Confirmed) Active *[id number] Care Partn er Tracy Natali(Confirmed) Active Pain of right sacroiliac joint(Confirmed) Active Lewy body dementia(Confirmed) Active Tinea cruris(Confirmed) Active Unintentional weight loss(Confirmed) Active Urinary incontinence(Confirmed) Active Vitamin D deficiency(Confirmed) Active Social History Social History Type Response Smoking Status Former smoker entered on: 08/26/15 Sex
--- OUTSIDE RECORDS SUMMARY | 2022-10-25 20:02 | XMS_ITS | Continuity of Care Document ---
Author Name Unknown Organization [facility] Address [address] [place] [address]- Care Team Providers Care Associate Sales Manager Name Role Phone Destinee JIMENEZ, Roberta Merida Primary Care Physician Encounter [facility] Date(s): 04/01/21 - 05/01/[address] [address]- Allergies, Adverse Reactions, Alerts Substance Reaction Severity [...] Refills, Maintenance, 11/06/20 13:04:00 EDT, Ophth Solution, [email or web address] #[id number], Partial fill upon patient request if the [...] tablet, 5 Refills, Maintenance, 11/20/20 11:43:00 EDT, [facility] #[id number], Please print in sri lankan, 160, cm, 11/04/20 11:39:00 EDT, Height, 57.86, [...] Gm, 5 Refills, Maintenance, 01/15/21 16:05:00 EDT, [facility] #[id number], Partial fill upon patient request if the [...] 2 Refills, Maintenance, 11/06/20 13:03:00 EDT, Syrup, [facility] #10303, Partial fill upon patient request if the [...] 3 Refills, Maintenance, 02/20/21 12:51:00 EST, Tablet, [facility] #[id number], Partial fill upon patient request if the prescription is for a schedule II opioid drug., 160, cm, 01/15/21 14:... Start Date: 02/20/21 Status: Ordered levothyroxine 75 mcg (0.075 mg) oral tablet 1 tablet = 75 mcg, By Mouth, Daily, TK 1 T PO D, # 90 tablet, 1 Refills, Maintenance, 02/19/21 13:28:00 EST, Tablet, [facility] #79293, Partial fill upon patient request if the prescriptionis for a schedule II opioid drug., 160, cm, ... Start Date: 02/19/21 Status: Ordered lidocaine 4% mucous membrane solution 1 application, Topically, 2 times a day, PRN Pain , Mild, # 1 each, 0 Refills, Maintenance, 05/22/20 16:43:00 EST, [facility] #54242, Partial fill upon patient request if the prescription is for a schedule II opioid drug., 1 application Topi... Start Date: 05/22/20 Status: Ordered midodrine 5 mg oral tablet 1, tablet, By Mouth, 3 times a day, # 90 tablet, Refills 3, Tot. Refills 0, Maintenance, 10/22/20 13:38:00 EDT, Route to Pharmacy Electronically, [facility] #[id number], 160, cm, 09/26/20 14:49:00 EDT, Height, 57.86, [...] 90 capsule, 0 Refills, 02/18/21 14:33:00 EST, [facility] #[id number], 160, cm, 01/15/21 14:39:00 EDT, Height, 57.86, kg, 04/12/20 23:44:00 EST, Dry Weight Start Date: 02/18/21 Status: Ordered traZODone 50 mg oral tablet 2, tablet, By Mouth, Daily at bedtime, # 60 tablet, Refills 2, Route to Pharmacy Electronically, [facility] #[id number], 160, cm, 11/04/20 11:39:00 EDT, Height, 57.86, [...] Myalgia(Confirmed) Active Pre-syncope(Confirmed) Active Orthostatic hypotension(Confirmed) Active *[id number] Care Partn er Tracy Hurst(Confirmed) Active Pain of right sacroiliac joint(Confirmed) Active Lewy body dementia(Confirmed) Active Tinea cruris(Confirmed) Active Unintentional weight loss(Confirmed) Active Urinary incontinence(Confirmed) Active Vitamin D deficiency(Confirmed) Active Social History Social History Type Response Smoking Status Former smoker entered on: 08/26/15 Sex
--- OUTSIDE RECORDS SUMMARY | 2022-10-25 20:02 | XMS_ITS | Continuity of Care Document ---
Author Name Unknown Organization [facility] Address [address] [place] [id number]- Care Team Providers Care Prescriptionist Name Role Phone Destinee JIMENEZ, Roberta Merida Primary Care Physician [phone] [facility]counter [facility] Date(s): 11/27/19 - 12/27/[address] [address]- [facility] Allergies, Adverse Reactions, Alerts Substance Reaction Severity [...] mL, 11 Refills, Maintenance, 10/03/19 11:19:00 EDT, [facility] #[id number], 1 drops Eyes, Both 3 times a [...] mL, 3 Refills, Maintenance, 10/04/19 11:21:00 EDT, [facility] #[id number], 30, 15 mL By Mouth Daily,PRN: NEEDED FOR CONSTIPATION, 160, cm, 03/22/19 15:22:00 EST, Height Start Date: 10/04/19 Status: Ordered levothyroxine 75 mcg (0.075 mg) oral tablet 1 tablet = 75 mcg, By Mouth, Daily, increase in dose, # 90 tablet, 1 Refills, Maintenance, 11/07/2009:50:00 EDT, Tablet, [facility] #[id number], 160, cm, 03/22/19 15:22:00 EST, Height Start [...] 11 Refills, Maintenance, 12/25/19 10:20:00 EDT, Tablet, [facility] #09539, 160, cm, 12/11/19 13:11:00 EDT, Height Start Date: 12/25/19 Status: Ordered omeprazole 40 mg oral enteric coated capsule 1 capsule, By Mouth, Daily, # 90 capsule, 1 Refills, Maintenance, 11/23/19 15:26:00 EDT, [facility] #[id number], 160, cm, 03/22/19 15:22:00 EST, Height Start Date: 11/23/19 Status: Ordered warfarin 2.5 mg oral tablet 1 tablet, By Mouth, Daily, DIRECTED BY NURSE BASED ON INR RESULTS., # 30 tablet, 11 Refills, Maintenance, 09/18/19 16:11:00 EDT, [facility] #[id number], 160, cm, 03/22/19 15:22:00 EST, Height Start [...] Active Hypotension(Confirmed) Active Myalgia(Confirmed) Active Pre-syncope(Confirmed) Active *[id number] Gina jearmie Mcfarland(Confirmed) Active Pain of right sacroiliac joint(Confirmed) Active Lewy body dementia(Confirmed) Active Tinea cruris(Confirmed) Active Unintentional weight loss(Confirmed) Active Urinary incontinence(Confirmed) Active Vitamin D deficiency(Confirmed) Active Social History Social History Type Response Smoking Status Former smoker entered on: 08/26/15 Sex
--- OUTSIDE RECORDS SUMMARY | 2022-10-25 20:02 | XMS_ITS | Continuity of Care Document ---
Author Name Unknown Organization [facility] Address [address] [place] [address]- Care Team Providers Care Sql Ssrs Developer Name Role Phone Destinee JIMENEZ, Roberta Merida Primary Care Physician [facility] Date(s): 04/08/20 - 05/08/[address] [address]- Allergies, Adverse Reactions, Alerts Substance Reaction Severity [...] capsule, 0 Refills, Maintenance, 04/16/20 14:22:00 EST, [facility] #[id number], 160, cm, 04/16/20 8:39:00 EST, Height, 57.86, kg, 04/12/20 23:44:00 EST, Dry Weight Start Date: 04/16/20 Status: Ordered traZODone 50 mg oral tablet TAKE 2 TABLETS BY MOUTH DAILY AT BEDTIME Start Date: 04/12/20 Status: Ordered warfarin 3 mg oral tablet 1 tablet = 3 mg, By Mouth, Daily, # 30 tablet, 0 Refills, Maintenance, 04/16/20 12:40:00 EST, Tablet, [facility] #[id number], Partial fill upon patient request if the [...] Myalgia(Confirmed) Active Pre-syncope(Confirmed) Active Orthostatic hypotension(Confirmed) Active *[id number] Care Partn er Tracy Natali(Confirmed) Active Pain of right sacroiliac joint(Confirmed) Active Lewy body dementia(Confirmed) Active Tinea cruris(Confirmed) Active Unintentional weight loss(Confirmed) Active Urinary incontinence(Confirmed) Active Vitamin D deficiency(Confirmed) Active Social History Social History Type Response Smoking Status Former smoker entered on: 08/26/15 Sex
--- OUTSIDE RECORDS SUMMARY | 2022-10-25 20:02 | XMS_ITS | Continuity of Care Document ---
Author Name Unknown Organization [facility] Address [address] [place] [address]- Care Team Providers Care Quality Control Tech Name Role Phone Roberta Felipe NP Primary Care Physician [phone] Encounter [facility] Date(s): 04/29/20 - 06/06/[address] [address]- Attending Physician: Not on Staff, Attending MD [...] 3 Refills, Maintenance, 05/19/20 14:56:00 EST, Tablet, [facility] #[id number], Partial fill upon patient request if the prescriptionis for a schedule II opioid drug., 160, cm, ... Start Date: 05/19/20 Stop Date: 09/16/20 Status: Ordered lidocaine 4% mucous membrane solution 1 application, Topically, 2 times a day, PRN Pain , Mild, # 1 each, 0 Refills, Maintenance, 05/22/20 16:43:00 EST, [facility] #60113, Partial fill upon patient request if the [...] capsule, 0 Refills, Maintenance, 04/16/20 14:22:00 EST, [facility] #[id number], 160, cm, 04/16/20 8:39:00 EST, Height, 57.86, [...] each, 11 Refills, Maintenance, 06/03/20 14:11:00 EDT, [facility] #[id number], Partial fill upon patient request if the [...] Myalgia(Confirmed) Active Pre-syncope(Confirmed) Active Orthostatic hypotension(Confirmed) Active *[id number] Care Partn er Tracy Hurst(Confirmed) Active Pain of right sacroiliac joint(Confirmed) Active Lewy body dementia(Confirmed) Active Tinea cruris(Confirmed) Active Unintentional weight loss(Confirmed) Active Urinary incontinence(Confirmed) Active Vitamin D deficiency(Confirmed) Active Social History Social History Type Response Smoking Status Former smoker entered on: 08/26/15 Sex
--- OUTSIDE RECORDS SUMMARY | 2022-10-25 20:02 | XMS_ITS | Continuity of Care Document ---
Author Name Unknown Organization [facility] Address [address] [place] [address]- Care Team Providers Care Bender Hand Name Role Phone Roberta Felipe NP Primary Care Physician Encounter [facility] Date(s): 09/19/20 - 10/19/[address] [address] Allergies, Adverse Reactions, Alerts Substance Reaction [...] Given 1Result Comment: Administered by Dalia Olguin HOSE INSPECTOR AND PATCHER 2Result Comment: incorrect brand entered 3Admin Note: VIS dated 09/13/11 4Admin Note: VIS dated 12/17/08 5Admin Note: VIS dated 04/03/11 Medications apixaban 2.5 mg oral tablet 1 tablet = 2.5 mg, By Mouth, 2 times a day, Transitioning from warfarin to apixaban, # 60 tablet, 11 Refills, Maintenance, 06/24/20 14:40:00 EDT, Tablet, [facility] #[id number], Partial fill upon patient request if the [...] 2 Refills, Maintenance, 09/29/20 16:10:00 EDT, Tablet, [facility] #[id number], Partial fill upon patient request ifthe prescription is for a schedule II opioid drug.,... Start Date: 09/29/20 Status: Ordered levothyroxine 75 mcg (0.075 mg) oral tablet 1 tablet = 75 mcg, By Mouth, Daily, TK 1 T PO D, # 90 tablet, 1 Refills, Maintenance, 09/16/20 14:56:00 EDT, Tablet, [facility] #[id number], Partial fill upon patient request if the prescriptionis for a schedule II opioid drug., 160, cm, ... Start Date: 09/16/20 Stop Date: 01/14/21 Status: Ordered lidocaine 4% mucous membrane solution 1 application, Topically, 2 times a day, PRN Pain , Mild, # 1 each, 0 Refills, Maintenance, 05/22/20 16:43:00 EST, [facility] #[id number], Partial fill upon patient request if the prescription is for a schedule II opioid drug., 1 application Topi... Start Date: 05/22/20 Status: Ordered midodrine 5 mg oral tablet 5 mg, 1, tablet, By Mouth, 3 times a day, lower dose tablet, # 90 tablet, Refills 3, Tot. Refills 3, Maintenance, 06/23/20 14:16:00 EDT, Route to Pharmacy Electronically, [facility] #[id number],Partial fill upon patient request if the prescripti... [...] capsule, 0 Refills, Maintenance, 09/10/20 8:11:00 EDT, [facility] #[id number], 160, cm, 08/21/20 12:36:00 EDT, Height, 57.86, kg, 04/12/20 23:44:00 EST, Dry Weight Start Date: 09/10/20 Status: Ordered traZODone 50 mg oral tablet 2, tablet, By Mouth, Daily at bedtime, # 60 tablet, Refills 3, Tot. Refills 0, Maintenance, 07/15/20 10:03:00 EDT, Route to Pharmacy Electronically, [facility] #[id number], 160, cm, 05/21/20 9:12:00 EST, Height, 57.86, [...] Myalgia(Confirmed) Active Pre-syncope(Confirmed) Active Orthostatic hypotension(Confirmed) Active *[id number] Care Partn er Tracy Hurst(Confirmed) Active Pain of right sacroiliac joint(Confirmed) Active Lewy body dementia(Confirmed) Active Tinea cruris(Confirmed) Active Unintentional weight loss(Confirmed) Active Urinary incontinence(Confirmed) Active Vitamin D deficiency(Confirmed) Active Social History Social History Type Response Smoking Status Former smoker entered on: 08/26/15 Sex
--- OUTSIDE RECORDS SUMMARY | 2022-10-25 20:03 | XMS_ITS | Continuity of Care Document ---
Author Name Unknown Organization [facility] Address [address] [place] [address]- Care Team Providers Care Cotton Grower Name Role Phone Destinee JIMENEZ, Roberta Merida Primary Care Physician Encounter [facility] Date(s): 03/15/20 - 04/14/20 [facility] [address], [place] [address] Allergies, Adverse Reactions, Alerts Substance Reaction [...] TIMES DAILY Start Date: 04/12/20 Status: Ordered omeprazole 40 mg oral enteric coated capsule TK ONE C PO QD Start Date: 04/12/20 Status: Ordered traZODone 50 mg oral tablet TAKE 2 TABLETS BY MOUTH DAILY AT BEDTIME Start Date: 04/12/20 Status: Ordered warfarin 2.5 mg oral tablet TAKE 1 TABLET BY MOUTH EVERY DAY DIRECTED BY NURSE BASED ON INR RESULTS Start Date: 04/12/20 Status: Ordered Problem List Condition Effective Dates [...] Myalgia(Confirmed) Active Pre-syncope(Confirmed) Active Orthostatic hypotension(Confirmed) Active *[phone] Care Partn er Tracy Hurst(Confirmed) Active Pain of right sacroiliac joint(Confirmed) Active Lewy body dementia(Confirmed) Active Tinea cruris(Confirmed) Active Unintentional weight loss(Confirmed) Active Urinary incontinence(Confirmed) Active Vitamin D deficiency(Confirmed) Active Social History Social History Type Response Smoking Status Former smoker entered on: 08/26/15 Sex
--- OUTSIDE RECORDS SUMMARY | 2022-10-25 20:03 | XMS_ITS | Continuity of Care Document ---
Author Name Unknown Organization [facility] Address [address] [place] [address]- Care Team Providers Care Frame Straightener Name Role Phone Destinee JIMENEZ, Roberta Merida Primary Care Physician Encounter [facility] Date(s): 03/16/21 - 04/15/[address] [address]- Allergies, Adverse Reactions, Alerts Substance Reaction Severity [...] Refills, Maintenance, 11/06/20 13:04:00 EDT, Ophth Solution, [facility] #[id number], Partial fill upon patient request if the [...] tablet, 5 Refills, Maintenance, 11/20/20 11:43:00 EDT, [facility] #[id number], Please print in montenegrin, 160, cm, 11/04/20 11:39:00 EDT, Height, 57.86, [...] Gm, 5 Refills, Maintenance, 01/15/21 16:05:00 EDT, [facility] #[id number], Partial fill upon patient request if the [...] 2 Refills, Maintenance, 11/06/20 13:03:00 EDT, Syrup, [facility] #[id number], Partial fill upon patient request if the [...] 3 Refills, Maintenance, 02/20/21 12:51:00 EST, Tablet, [facility] #[id number], Partial fill upon patient request if the prescription is for a schedule II opioid drug., 160, cm, 01/15/21 14:... Start Date: 02/20/21 Status: Ordered levothyroxine 75 mcg (0.075 mg) oral tablet 1 tablet = 75 mcg, By Mouth, Daily, TK 1 T PO D, # 90 tablet, 1 Refills, Maintenance, 02/19/21 13:28:00 EST, [facility] #[id number], Partial fill upon patient request if the prescriptionis for a schedule II opioid drug., 160, cm, ... Start Date: 02/19/21 Status: Ordered lidocaine 4% mucous membrane solution 1 application, Topically, 2 times a day, PRN Pain , Mild, # 1 each, 0 Refills, Maintenance, 05/22/20 16:43:00 EST, [facility] #[id number], Partial fill upon patient request if the prescription is for a schedule II opioid drug., 1 application Topi... Start Date: 05/22/20 Status: Ordered midodrine 5 mg oral tablet 1, tablet, By Mouth, 3 times a day, # 90 tablet, Refills 3, Tot. Refills 0, Maintenance, 10/22/20 13:38:00 EDT, Route to Pharmacy Electronically, [facility] #[id number], 160, cm, 09/26/20 14:49:00 EDT, Height, 57.86, [...] 90 capsule, 0 Refills, 02/18/21 14:33:00 EST, [facility] #[id number], 160, cm, 01/15/21 14:39:00 EDT, Height, 57.86, kg, 04/12/20 23:44:00 EST, Dry Weight Start Date: 02/18/21 Status: Ordered traZODone 50 mg oral tablet 2, tablet, By Mouth, Daily at bedtime, # 60 tablet, Refills 2, Route to Pharmacy Electronically, [facility] #[id number], 160, cm, 11/04/20 11:39:00 EDT, Height, 57.86, kg, 04/12/20 23:44:00 EST,Dry Weight Start Date: 11/18/20 Status: Ordered Urinal See Instructions, # 3 each, Refills 0, Tot. Refills 0, Maintenance, Use as needed for urinating. 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 Z74.01, G31.83, 03/11/21 17:15:00 EST, Supply Start Date: 05/22/20 Status: [...] Myalgia(Confirmed) Active Pre-syncope(Confirmed) Active Orthostatic hypotension(Confirmed) Active *[id number] Care Partn er Tracy Hurst(Confirmed) Active Pain of right sacroiliac joint(Confirmed) Active Lewy body dementia(Confirmed) Active Tinea cruris(Confirmed) Active Unintentional weight loss(Confirmed) Active Urinary incontinence(Confirmed) Active Vitamin D deficiency(Confirmed) Active Social History Social History Type Response Smoking Status Former smoker entered on: 08/26/15 Sex
--- OUTSIDE RECORDS SUMMARY | 2022-10-25 20:03 | XMS_ITS | Continuity of Care Document ---
Author Name Unknown Organization [facility] Address [address] [place] [address]- Care Team Providers Care Blasting Cap Assembler Name Role Phone Roberta Felipe NP Primary Care Physician [place] [facility] [place]/16[place] - 11/15/[address] [address] Attending Physician: Not on Staff, Attending MD Admitting Physician: Not on Staff, Admitting MD Referring Physician: Not on Staff, Referring [...] Refills, Maintenance, 11/06/20 13:04:00 EDT, Ophth Solution, [facility] #[id number], Partial fill upon patient request if the [...] tablet, 5 Refills, Maintenance, 10/28/20 15:23:00 EDT, [facility] #[id number], has Cr of 1.3, so should goup [...] 2 Refills, Maintenance, 11/06/20 13:03:00 EDT, Syrup, [facility] #[id number], Partial fill upon patient request if the [...] 2 Refills, Maintenance, 09/29/20 16:10:00 EDT, Tablet, [facility] #[id number], Partial fill upon patient request ifthe prescription is for a schedule II opioid drug.,... Start Date: 09/29/20 Status: Ordered levothyroxine 75 mcg (0.075 mg) oral tablet 1 tablet = 75 mcg, By Mouth, Daily, TK 1 T PO D, # 90 tablet, 1 Refills, Maintenance, 09/16/20 14:56:00 EDT, Tablet, [facility] #[id number], Partial fill upon patient request if the prescriptionis for a schedule II opioid drug., 160, cm, ... Start Date: 09/16/20 Stop Date: 01/14/21 Status: Ordered lidocaine 4% mucous membrane solution 1 application, Topically, 2 times a day, PRN Pain , Mild, # 1 each, 0 Refills, Maintenance, 05/22/20 16:43:00 EST, [facility] #[id number], Partial fill upon patient request if the prescription is for a schedule II opioid drug., 1 application Topi... Start Date: 05/22/20 Status: Ordered midodrine 5 mg oral tablet 1, tablet, By Mouth, 3 times a day, # 90 tablet, Refills 3, Tot. Refills 0, Maintenance, 10/22/20 13:38:00 EDT, Route to Pharmacy Electronically, [facility] #[id number], 160, cm, 09/26/20 14:49:00 EDT, Height, 57.86, [...] capsule, 0 Refills, Maintenance, 09/10/20 8:11:00 EDT, [facility] #[id number], 160, cm, 08/21/20 12:36:00 EDT, Height, 57.86, kg, 04/12/20 23:44:00 EST, Dry Weight Start Date: 09/10/20 Status: Ordered traZODone 50 mg oral tablet 2, tablet, By Mouth, Daily at bedtime, # 60 tablet, Refills 3, Tot. Refills 0, Maintenance, 07/15/20 10:03:00 EDT, Route to Pharmacy Electronically, [facility] #[id number], 160, cm, 05/21/20 9:12:00 EST, Height, 57.86, [...] Myalgia(Confirmed) Active Pre-syncope(Confirmed) Active Orthostatic hypotension(Confirmed) Active *[id number] Care Partn er Tracy Hurst(Confirmed) Active Pain of right sacroiliac joint(Confirmed) Active Lewy body dementia(Confirmed) Active Tinea cruris(Confirmed) Active Unintentional weight loss(Confirmed) Active Urinary incontinence(Confirmed) Active Vitamin D deficiency(Confirmed) Active Social History Social History Type Response Smoking Status Former smoker entered on: 08/26/15 Sex
--- OUTSIDE RECORDS SUMMARY | 2022-10-25 20:03 | XMS_ITS | Continuity of Care Document ---
Author Name Unknown Organization [facility] Address [address] [place] [address]- Care Team Providers Care Associate Dean Of Students Name Role Phone Destinee JIMENEZ, Roberta Merida Primary Care Physician Encounter [facility] Date(s): 05/08/21 - 06/07/[address] [address] Allergies, Adverse Reactions, Alerts Substance [...] Refills, Maintenance, 11/06/20 13:04:00 EDT, Ophth Solution, [facility] #[id number], Partial fill upon patient request if the [...] tablet, 5 Refills, Maintenance, 11/20/20 11:43:00 EDT, [facility] #[id number], Please print in azeri, 160, cm, 11/04/20 11:39:00 EDT, Height, 57.86, [...] Gm, 5 Refills, Maintenance, 01/15/21 16:05:00 EDT, [facility] #[id number], Partial fill upon patient request if the [...] 2 Refills, Maintenance, 11/06/20 13:03:00 EDT, Syrup, [facility] #[id number], Partial fill upon patient request if the [...] tablet, 3 Refills, Maintenance, 02/20/21 12:51:00 EST, [facility][id number], Partial fill upon patient request if the prescription is for a schedule II opioid drug., 160, cm, 01/15/21 14:... Start Date: 02/20/21 Status: Ordered levothyroxine 75 mcg (0.075 mg) oral tablet 1 tablet = 75 mcg, By Mouth, Daily, TK 1 T PO D, # 90 tablet, 1 Refills, Maintenance, 02/19/21 13:28:00 EST, Tablet, [facility] #[id number], Partial fill upon patient request if the prescriptionis for a schedule II opioid drug., 160, cm, ... Start Date: 02/19/21 Status: Ordered lidocaine 4% mucous membrane solution 1 application, Topically, 2 times a day, PRN Pain , Mild, # 1 each, 0 Refills, Maintenance, 05/22/20 16:43:00 EST, [facility] #[id number], Partial fill upon patient request if the prescription is for a schedule II opioid drug., 1 application Topi... Start Date: 05/22/20 Status: Ordered midodrine 5 mg oral tablet 1, tablet, By Mouth, 3 times a day, # 90 tablet, Refills 3, Tot. Refills 0, Maintenance, 10/22/20 13:38:00 EDT, Route to Pharmacy Electronically, [facility] #[id number], 160, cm, 09/26/20 14:49:00 EDT, Height, 57.86, [...] 90 capsule, 0 Refills, 05/28/21 14:21:00 EDT, [facility] #[id number], 160, cm, 01/15/21 14:39:00 EDT, Height, 57.86, kg, 04/12/20 23:44:00 EST, Dry Weight Start Date: 05/28/21 Status: Ordered traZODone 50 mg oral tablet 2, tablet, By Mouth, Daily at bedtime, # 60 tablet, Refills 2, Route to Pharmacy Electronically, [facility] #[id number], 160, cm, 11/04/20 11:39:00 EDT, Height, 57.86, [...] Myalgia(Confirmed) Active Pre-syncope(Confirmed) Active Orthostatic hypotension(Confirmed) Active *[phone] Care Partn er Tracy Hurst(Confirmed) Active Pain of right sacroiliac joint(Confirmed) Active Lewy body dementia(Confirmed) Active Tinea cruris(Confirmed) Active Unintentional weight loss(Confirmed) Active Urinary incontinence(Confirmed) Active Vitamin D deficiency(Confirmed) Active Social History Social History Type Response Smoking Status Former smoker entered on: 08/26/15 Sex
--- OUTSIDE RECORDS SUMMARY | 2022-10-25 20:03 | XMS_ITS | Continuity of Care Document ---
Author Name Unknown Organization [facility] Address [address] [place] [address]- Care Team Providers Care Geothermal Installer Name Role Phone Roberta Felipe NP Primary Care Physician [phone] [place] [facility] [place](s): 01/30/21 - 03/05/[address] [address] Attending Physician: Not on Staff, Attending MD [...] Refills, Maintenance, 11/06/20 13:04:00 EDT, Ophth Solution, [facility] #[id number], Partial fill upon patient request if the [...] tablet, 5 Refills, Maintenance, 11/20/20 11:43:00 EDT, [facility] #[id number], Please print in belizean, 160, cm, 11/04/20 11:39:00 EDT, Height, 57.86, [...] Gm, 5 Refills, Maintenance, 01/15/21 16:05:00 EDT, [facility] #[id number], Partial fill upon patient request if the [...] 2 Refills, Maintenance, 11/06/20 13:03:00 EDT, Syrup, [facility] #[id number], Partial fill upon patient request if the [...] 3 Refills, Maintenance, 02/20/21 12:51:00 EST, Tablet, [facility] #[id number], Partial fill upon patient request if the prescription is for a schedule II opioid drug., 160, cm, 01/15/21 14:... Start Date: 02/20/21 Status: Ordered levothyroxine 75 mcg (0.075 mg) oral tablet 1 tablet = 75 mcg, By Mouth, Daily, TK 1 T PO D, # 90 tablet, 1 Refills, Maintenance, 02/19/21 13:28:00 EST, [facility] #[id number], Partial fill upon patient request if the prescriptionis for a schedule II opioid drug., 160, cm, ... Start Date: 02/19/21 Status: Ordered lidocaine 4% mucous membrane solution 1 application, Topically, 2 times a day, PRN Pain , Mild, # 1 each, 0 Refills, Maintenance, 05/22/20 16:43:00 EST, [facility] #[id number], Partial fill upon patient request if the prescription is for a schedule II opioid drug., 1 application Topi... Start Date: 05/22/20 Status: Ordered midodrine 5 mg oral tablet 1, tablet, By Mouth, 3 times a day, # 90 tablet, Refills 3, Tot. Refills 0, Maintenance, 10/22/20 13:38:00 EDT, Route to Pharmacy Electronically, [facility] #[id number], 160, cm, 09/26/20 14:49:00 EDT, Height, 57.86, [...] 90 capsule, 0 Refills, 02/18/21 14:33:00 EST, [facility] #[id number], 160, cm, 01/15/21 14:39:00 EDT, Height, 57.86, kg, 04/12/20 23:44:00 EST, Dry Weight Start Date: 02/18/21 Status: Ordered traZODone 50 mg oral tablet 2, tablet, By Mouth, Daily at bedtime, # 60 tablet, Refills 2, Route to Pharmacy Electronically, [facility] #[id number], 160, cm, 11/04/20 11:39:00 EDT, Height, 57.86, [...] Myalgia(Confirmed) Active Pre-syncope(Confirmed) Active Orthostatic hypotension(Confirmed) Active *[phone] Care Partn er Tracy Hurst(Confirmed) Active Pain of right sacroiliac joint(Confirmed) Active Lewy body dementia(Confirmed) Active Tinea cruris(Confirmed) Active Unintentional weight loss(Confirmed) Active Urinary incontinence(Confirmed) Active Vitamin D deficiency(Confirmed) Active Social History Social History Type Response Smoking Status Former smoker entered on: 08/26/15 Sex
--- OUTSIDE RECORDS SUMMARY | 2022-10-25 20:03 | XMS_ITS | Continuity of Care Document ---
Author Name Unknown Organization [facility] Address [address] [place] [address]- Care Team Providers Care Log Buyer Name Role Phone Destinee JIMENEZ, Roberta Merida Primary Care Physician Encounter [facility] Date(s): 12/04/19 - 01/03/[address] [address]- [facility] Allergies, Adverse Reactions, Alerts Substance Reaction [...] mL, 11 Refills, Maintenance, 10/03/19 11:19:00 EDT, [facility] #[id number], 1 drops Eyes, Both 3 times a [...] mL, 3 Refills, Maintenance, 10/04/19 11:21:00 EDT, [facility] #[id number], 30, 15 mL By Mouth Daily,PRN: NEEDED FOR CONSTIPATION, 160, cm, 03/22/19 15:22:00 EST, Height Start Date: 10/04/19 Status: Ordered levothyroxine 75 mcg (0.075 mg) oral tablet 1 tablet = 75 mcg, By Mouth, Daily, increase in dose, # 90 tablet, 1 Refills, Maintenance, 11/07/2009:50:00 EDT, Tablet, [facility] #[id number], 160, cm, 03/22/19 15:22:00 EST, Height Start [...] 11 Refills, Maintenance, 12/25/19 10:20:00 EDT, Tablet, [facility] #[id number], 160, cm, 12/11/19 13:11:00 EDT, Height Start Date: 12/25/19 Status: Ordered omeprazole 40 mg oral enteric coated capsule 1 capsule, By Mouth, Daily, # 90 capsule, 1 Refills, Maintenance, 11/23/19 15:26:00 EDT, [facility] #[id number], 160, cm, 03/22/19 15:22:00 EST, Height Start Date: 11/23/19 Status: Ordered warfarin 2.5 mg oral tablet 1 tablet, By Mouth, Daily, DIRECTED BY NURSE BASED ON INR RESULTS., # 30 tablet, 11 Refills, Maintenance, 09/18/19 16:11:00 EDT, [facility] #[id number], 160, cm, 03/22/19 15:22:00 EST, Height Start [...] Active Hypotension(Confirmed) Active Myalgia(Confirmed) Active Pre-syncope(Confirmed) Active *[id number] jeramie Mcfarland(Confirmed) Active Pain of right sacroiliac joint(Confirmed) Active Lewy body dementia(Confirmed) Active Tinea cruris(Confirmed) Active Unintentional weight loss(Confirmed) Active Urinary incontinence(Confirmed) Active Vitamin D deficiency(Confirmed) Active Social History Social History Type Response Smoking Status Former smoker entered on: 08/26/15 Sex
--- OUTSIDE RECORDS SUMMARY | 2022-10-25 20:03 | XMS_ITS | Continuity of Care Document ---
Author Name Unknown Organization [facility] Address [address] [place] [address]- Care Team Providers Care Supervisor [place] Name Role Phone Destinee JIMENEZ, Roberta Merida Primary Care Physician [phone] [place] [facility] [place](s[place] 09/11/19 - 10/11/[address] [address]- [facility] Allergies, Adverse Reactions, Alerts Substance Reaction Severity [...] mL, 11 Refills, Maintenance, 10/03/19 11:19:00 EDT, [facility] #[id number], 1 drops Eyes, Both 3 times a [...] mL, 3 Refills, Maintenance, 10/04/19 11:21:00 EDT, [facility] #[id number], 30, 15 mL By Mouth Daily,PRN: NEEDED [...] capsule, 0 Refills, Maintenance, 08/27/19 8:49:00 EDT, [facility] #[id number], 160, cm, 03/22/19 15:22:00 EST, Height Start Date: 08/27/19 Status: Ordered warfarin 2.5 mg oral tablet 1 tablet, By Mouth, Daily, DIRECTED BY NURSE BASED ON INR RESULTS., # 30 tablet, 11 Refills, Maintenance, 09/18/19 16:11:00 EDT, [facility] #[id number], 160, cm, 03/22/19 15:22:00 EST, Height Start [...] back pain(Confirmed) Active Hypotension(Confirmed) Active Myalgia(Confirmed) Active *[id number][facility] Cel[facility] Mcfarland(Confirmed) Active Pain of right sacroiliac joint(Confirmed) Active Lewy body dementia(Confirmed) Active Tinea cruris(Confirmed) Active Vitamin D deficiency(Confirmed) Active Social History Social History Type Response Smoking Status Former smoker entered on: 08/26/15 Sex
--- OUTSIDE RECORDS SUMMARY | 2022-10-25 20:03 | XMS_ITS | Continuity of Care Document ---
Author Name Unknown Organization [facility] Address [address] [place] [address]- Care Team Providers Care Car Washer Name Role Phone Roberta Felipe NP Primary Care Physician Encounter [facility] [place] Date(s): 04/15/20 - 05/30/[address] [address]- Attending Physician: Naya Fermin MD Admitting Physician: [...] 3 Refills, Maintenance, 05/19/20 14:56:00 EST, Tablet, [facility] #[id number], Partial fill upon patient request if the prescriptionis for a schedule II opioid drug., 160, cm, ... Start Date: 05/19/20 Stop Date: 09/16/20 Status: Ordered lidocaine 4% mucous membrane solution 1 application, Topically, 2 times a day, PRN Pain , Mild, # 1 each, 0 Refills, Maintenance, 05/22/20 16:43:00 EST, [facility] #[id number], Partial fill upon patient request if the [...] capsule, 0 Refills, Maintenance, 04/16/20 14:22:00 EST, [facility] #[id number], 160, cm, 04/16/20 8:39:00 EST, Height, 57.86, [...] 0 Refills, Maintenance, 04/16/20 12:40:00 EST, Tablet, [facility] #[id number], Partial fill upon patient request if the [...] Myalgia(Confirmed) Active Pre-syncope(Confirmed) Active Orthostatic hypotension(Confirmed) Active *[phone] Care Partn er Tracy Hurst(Confirmed) Active Pain of right sacroiliac joint(Confirmed) Active Lewy body dementia(Confirmed) Active Tinea cruris(Confirmed) Active Unintentional weight loss(Confirmed) Active Urinary incontinence(Confirmed) Active Vitamin D deficiency(Confirmed) Active Social History Social History Type Response Smoking Status Former smoker entered on: 08/26/15 Sex
--- OUTSIDE RECORDS SUMMARY | 2022-10-25 20:03 | XMS_ITS | Continuity of Care Document ---
Author Name Unknown Organization [facility] Address [address] [place] [address]- Care Team Providers Care Gate Watchman Name Role Phone Roberta Felipe NP Primary Care Physician [phone] [place] [facility] [place]/20 [facility] [address] [place] [address]- [place] Allergies, Adverse Reactions, Alerts Substance Reaction Severity [...] 11 Refills, Maintenance, 06/24/20 14:40:00 EDT, Tablet, [facility] #[id number], Partial fill upon patient request if the [...] tablet, 5 Refills, Maintenance, 10/28/20 15:23:00 EDT, [facility] #[id number], has Cr of 1.3, so should goup [...] 2 Refills, Maintenance, 09/29/20 16:10:00 EDT, Tablet, [facility] #77002, Partial fill upon patient request ifthe prescription is for a schedule II opioid drug.,... Start Date: 09/29/20 Status: Ordered levothyroxine 75 mcg (0.075 mg) oral tablet 1 tablet = 75 mcg, By Mouth, Daily, TK 1 T PO D, # 90 tablet, 1 Refills, Maintenance, 09/16/20 14:56:00 EDT, Tablet, [facility] #22345, Partial fill upon patient request if the prescriptionis for a schedule II opioid drug., 160, cm, ... Start Date: 09/16/20 Stop Date: 01/14/21 Status: Ordered lidocaine 4% mucous membrane solution 1 application, Topically, 2 times a day, PRN Pain , Mild, # 1 each, 0 Refills, Maintenance, 05/22/20 16:43:00 EST, [facility] #[id number], Partial fill upon patient request if the prescription is for a schedule II opioid drug., 1 application Topi... Start Date: 05/22/20 Status: Ordered midodrine 5 mg oral tablet 1, tablet, By Mouth, 3 times a day, # 90 tablet, Refills 3, Tot. Refills 0, Maintenance, 10/22/20 13:38:00 EDT, Route to Pharmacy Electronically, [facility] #[id number], 160, cm, 09/26/20 14:49:00 EDT, Height, 57.86, [...] capsule, 0 Refills, Maintenance, 09/10/20 8:11:00 EDT, [facility] #[id number], 160, cm, 08/21/20 12:36:00 EDT, Height, 57.86, kg, 04/12/20 23:44:00 EST, Dry Weight Start Date: 09/10/20 Status: Ordered traZODone 50 mg oral tablet 2, tablet, By Mouth, Daily at bedtime, # 60 tablet, Refills 3, Tot. Refills 0, Maintenance, 07/15/20 10:03:00 EDT, Route to Pharmacy Electronically, [facility] #[id number], 160, cm, 05/21/20 9:12:00 EST, Height, 57.86, [...] Myalgia(Confirmed) Active Pre-syncope(Confirmed) Active Orthostatic hypotension(Confirmed) Active *[id number] Care Partn er Tracyyusuf Hurst(Confirmed) Active Pain of right sacroiliac joint(Confirmed) Active Lewy body dementia(Confirmed) Active Tinea cruris(Confirmed) Active Unintentional weight loss(Confirmed) Active Urinary incontinence(Confirmed) Active Vitamin D deficiency(Confirmed) Active Social History Social History Type Response Smoking Status Former smoker entered on: 08/26/15 Sex
--- OUTSIDE RECORDS SUMMARY | 2022-10-25 20:03 | XMS_ITS | Continuity of Care Document ---
Author Name Unknown Organization [facility] Address [address] [place] [address]- Care Team Providers Care Armature Tester Name Role Phone Destinee JIMENEZ, Roberta Merida Primary Care Physician Encounter [facility] Date(s): 05/10/22 - 06/09/[address] [address]- Allergies, Adverse Reactions, Alerts Substance Reaction Severity Status penicillin rash Active Immunizations Given and Recorded Vaccine Date Status Refusal Reason [id number] 12y+ bivalent booster vax 03/05/22 Given influenza [...] inactivated 2 05/31/12 Gi davonte SARS-CoV-2 mRNA ([id number]) vax 06/19/21 Given SARS-CoV-2 (COVID-19) mRNA BNT-162b2 vac 05/17/20 Given SARS-CoV-2 (COVID-19) mRNA BNT-162b2 vac 3 04/26/20 Given pneumococcal 13-valent vaccine 08/31/16 Given pneumococcal 23-valent vaccine 4 05/31/12 Given tetanus/diphtheria/pertussis, acel(Tdap) 5 05/31/12 Given 1Result Comment: incorrect brand entered 2Admin Note: VIS dated 09/13/11 3Result Comment: Administered by Dalia Olguin WEAVE ROOM SUPERVISOR 4Admin Note: VIS dated 12/17/08 5Admin Note: VIS dated 04/03/11 Medications Artificial Tears preserved solution 1 drops, Eyes, Both, 4 times a day, PRN Dry Eyes, # 10 mL, 11 Refills, Maintenance, 01/26/22 14:13:00 EST, Ophth Solution, [facility] #[id number], Partial fill upon patient request if the [...] tablet, 5 Refills, Maintenance, 10/26/21 14:08:00 EDT, [facility] #[id number], Please print in pakistani, 160, cm, 08/27/21 13:11:00 EDT, Height, 57.86, [...] 01/26/22 14:13:00 EST, Route to Pharmacy Electronically, [facility][id number], Partial fill upon patient request if the pr... Start Date: 01/26/22 Status: Ordered Eucerin Eczema Relief topical cream 1 application, Topically, 2 times a day, # 240 Gm, 5 Refills, Maintenance, 01/15/21 16:05:00 EDT, [facility] #[id number], Partial fill upon patient request if the prescription is for a schedule II opioid drug., 1 application Topically 2 times a d... Start Date: 01/15/21 Status: Ordered guaiFENesin 400 mg oral tablet 1 tablet = 400 mg, By Mouth, Every 4 hours, PRN as needed for congestion and cough, # 30 tablet, 1 Refills, Maintenance, 08/27/21 13:40:00 EDT, Tablet, [facility] #[id number], Partial fill upon patient request if the [...] 2 Refills, Maintenance, 08/17/21 13:14:00 EDT, Syrup, [facility] #[id number], 15 mL By Mouth Daily,PRN:as needed for [...] 5 Refills, Maintenance, 10/26/21 14:08:00 EDT, Tablet, [facility] #[id number], Partial fill upon patient request if the prescription is for a schedule II opioid drug., 160, cm, 08/27/21 13:... Start Date: 10/26/21 Status: Ordered levothyroxine 75 mcg (0.075 mg) oral tablet 1 tablet = 75 mcg, By Mouth, Daily, TK 1 T PO D, # 90 tablet, 1 Refills, Maintenance, 04/21/22 9:43:00 EST, Tablet, [facility] #[id number], Partial fill upon patient request if the prescription is for a schedule II opioid drug., 160, cm, ... Start Date: 04/21/22 Status: Ordered lidocaine 4% mucous membrane solution 1 application, Topically, 2 times a day, PRN Pain , Mild, # 1 each, 0 Refills, Maintenance, 05/22/20 16:43:00 EST, [facility] #60717, Partial fill upon patient request if the prescription is for a schedule II opioid drug., 1 application Topi... Start Date: 05/22/20 Status: Ordered midodrine 5 mg oral tablet 1, tablet, By Mouth, 3 times a day, # 90 tablet, Refills 3, Tot. Refills 3, Maintenance, 10/27/21 15:24:00 EDT, Route to Pharmacy Electronically, [facility] #[id number], 160, cm, 08/27/21 13:11:00 EDT, Height, 57.86, [...] 90 capsule, 1 Refills, 11/23/21 16:42:00 EDT, [facility] #[id number], 160, cm, 08/27/21 13:11:00 EDT, Height, 57.86, [...] 05/03/22 11:14:00 EST, Route to Pharmacy Electronically, [facility] #[id number], 160, cm, 04/19/22 17:27:00 EST, Height Start Date: 05/03/22 Status: Ordered Urinal See Instructions, # 3 each, Refills 0, Tot. Refills 0, Maintenance, Use as needed for urinating. 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 Z74.01, G31.83, 05/22/20 17:15:00 EST, Supply Start Date: 05/22/20 Status: Ordered Washable Carrot Tier Bed Pads Washable Carrot Tier Bed Pads, See Instructions, # 4 each, [...] Pre-syncope Confirmed Active Orthostatic hypotension Confirmed Active *[id number] Station Cleaning Porter Yi Campos Confirmed Active Pain of right sacroiliac joint Confirmed Active Seizures Confirmed Active Lewy body dementia Confirmed Active Tinea cruris Confirmed Active Unintentional weight loss Confirmed Active Urinary incontinence Confirmed Active Vitamin D deficiency Confirmed Active Social History Social History Type Response Smoking Status Former smoker entered on: 08/26/15 Sex Patient Care team information Care Team Personnel Name: Matilde Mahmood RN Position: [facility] RN Member Role: Primary Care Nurse Name: Roberta Felipe NP Position: [facility] PCO Associate Professional Member Role: PCP Address: Address: [address] [place] [address]- [place] Name: ALESSANDRO VILLATORO RN Position: S RN Member Role: Primary Care Nurse Name: Lilo Maldonado RN Position: [facility] RN Member Role: Primary Care Nurse Name: Anuj Murillo RN Position: [facility] RN Member Role: Primary Care Nurse Name: Jasmin Oliva Position: [facility] Outreach Member Role: Lifetime Consulting Physician Name: Suzanne Celeste RN Position: [facility] RN Member Role: Primary Care Nurse Name: Lily Solis RN Position: [facility] Onco RN Member Role: Primary Care Nurse Name: Adela Tadeo RN Position: [facility] RN Member Role: Primary Care Nurse Name: Maci Jones RN Position: [facility] RN Member Role: Primary Care Nurse Name: Nancy Morrow RN Position: [facility] RN Member Role: Primary Care Nurse Name: Etta Dewitt RN Position: [facility] RN Member Role: Primary Care Nurse Care Team Related Persons Name: JESSIKA HEARD Address: home [address] [place] [address] Name: JESSICA JOSUE Address: home [address] [place] [address] Name: CARLOS CEJA Address: home [address] [place] [address]
--- OUTSIDE RECORDS SUMMARY | 2022-10-25 20:03 | XMS_ITS | Continuity of Care Document ---
Author Name Unknown Organization [facility] Address [address] [place] [address]- Care Team Providers Care Customer Solutions Supervisor Name Role Phone Destinee JIMENEZ, Roberta Merida Primary Care Physician [phone] [id number] Date(s): 06/07/19 - 06/17/[address] [address]- [facility] Attending Physician: AdmHunter [email or web address] Admitting Physician: [...] Refills, Acute 09/28/19 0:01:00EDT, 05/30/19 0:00:00 EDT, [facility][id number], 30, 15 mL By Mouth Daily,PRN: NEEDED [...] capsule, 2 Refills, Maintenance, 05/29/19 17:08:00 EDT, [facility] #[id number], 160, cm, 03/22/19 15:22:00 EST, Height Start Date: 05/29/19 Status: Ordered warfarin 2.5 mg oral tablet 1 tablet, By Mouth, Daily, DIRECTED BY NURSE BASED ON INR RESULTS., # 30 tablet, 11 Refills, Maintenance, 05/22/19 10:41:00 EDT, [facility] #[id number], 160, cm, 03/22/19 15:22:00 EST, Height Start [...] back pain(Confirmed) Active Hypotension(Confirmed) Active Myalgia(Confirmed) Active *[id number]-Care Partn christie- Vimal Mcfarland(Confirmed) Active Pain of right sacroiliac joint(Confirmed) Active Lewy body dementia(Confirmed) Active Tinea cruris(Confirmed) Active Vitamin D deficiency(Confirmed) Active Social History Social History Type Response Smoking Status Former smoker entered on: 08/26/15 Sex
--- OUTSIDE RECORDS SUMMARY | 2022-10-25 20:03 | XMS_ITS | Continuity of Care Document ---
Author Name Unknown Organization [facility] Address [address] [place] [address]- Care Team Providers Care Sweatband Decorating Machine Operator Name Role Phone Roberta Felipe NP Primary Care Physician [phone] Encounter [facility] [place] Date(s): 06/23/20 - 07/23/20 [facility] [address] [place], [place] [address] Allergies, Adverse [...] 11 Refills, Maintenance, 06/24/20 14:40:00 EDT, Tablet, [facility] #[id number], Partial fill upon patient request if the [...] 3 Refills, Maintenance, 05/19/20 14:56:00 EST, Tablet, [facility] #53459, Partial fill upon patient request if the prescriptionis for a schedule II opioid drug., 160, cm, ... Start Date: 05/19/20 Stop Date: 09/16/20 Status: Ordered lidocaine 4% mucous membrane solution 1 application, Topically, 2 times a day, PRN Pain , Mild, # 1 each, 0 Refills, Maintenance, 05/22/20 16:43:00 EST, [facility] #[id number], Partial fill upon patient request if the prescription is for a schedule II opioid drug., 1 application Topi... Start Date: 05/22/20 Status: Ordered midodrine 5 mg oral tablet 5 mg, 1, tablet, By Mouth, 3 times a day, lower dose tablet, # 90 tablet, Refills 3, Tot. Refills 3, Maintenance, 06/23/20 14:16:00 EDT, Route to Pharmacy Electronically, [facility] #[id number],Partial fill upon patient request if the prescripti... [...] capsule, 0 Refills, Maintenance, 06/23/20 8:58:00 EDT, [facility] #[id number], 160, cm, 05/21/20 9:12:00 EST, Height, 57.86, kg, 04/12/20 23:44:00 EST, Dry Weight Start Date: 06/23/20 Status: Ordered traZODone 50 mg oral tablet 2, tablet, By Mouth, Daily at bedtime, # 60 tablet, Refills 3, Tot. Refills 0, Maintenance, 07/15/20 10:03:00 EDT, Route to Pharmacy Electronically, [facility] #[id number], 160, cm, 05/21/20 9:12:00 EST, Height, 57.86, [...] Myalgia(Confirmed) Active Pre-syncope(Confirmed) Active Orthostatic hypotension(Confirmed) Active *[id number] Care Partn er Tracy Hurst(Confirmed) Active Pain of right sacroiliac joint(Confirmed) Active Lewy body dementia(Confirmed) Active Tinea cruris(Confirmed) Active Unintentional weight loss(Confirmed) Active Urinary incontinence(Confirmed) Active Vitamin D deficiency(Confirmed) Active Social History Social History Type Response Smoking Status Former smoker entered on: 08/26/15 Sex
--- OUTSIDE RECORDS SUMMARY | 2022-10-25 20:03 | XMS_ITS | Continuity of Care Document ---
Author Name Unknown Organization [facility] Address [address] [place] [address]- Care Team Providers Care Laser Cutter Name Role Phone Destinee JIMENEZ, Roberta Merida Primary Care Physician [phone] [place] [facility] [id number] Date(s): 06/18/22 - 07/18/[address] [address]- Attending Physician: Hiren Blackburn Admitting Physician: Hiren Blackburn Referring Physician: AdmtrHiren Allergies, Adverse Reactions, Alerts Substance Reaction Severity Status penicillin rash Active Immunizations Given and Recorded Vaccine Date Status Refusal Reason [id number] 12y+ bivalent booster vax 03/05/22 Given influenza [...] inactivated 2 05/31/12 Gi davonte SARS-CoV-2 mRNA ([id number]) vax 06/19/21 Given SARS-CoV-2 (COVID-19) mRNA BNT-162b2 [...] Refills, Maintenance, 01/26/22 14:13:00 EST, Ophth Solution, [facility] #[id number], Partial fill upon patient request if the [...] tablet, 5 Refills, Maintenance, 10/26/21 14:08:00 EDT, [facility] #43774, Please print in ukrainian, 160, cm, 08/27/21 13:11:00 EDT, Height, 57.86, [...] Gm, 1 Refills, Maintenance, 06/18/2314:05:00 EDT, Cream, [facility] #[id number], Partial fill upon patient request if the prescription is for a schedule II opioid drug., 1 applicatio... Start Date: 06/18/22 Status: Ordered docusate sodium 100 mg oral capsule 100 mg, 1, capsule, By Mouth, 2 times a day, PRN, # 60 capsule, Refills 3, Tot. Refills 3, Maintenance, for constipation, 01/26/22 14:13:00 EST, Route to Pharmacy Electronically, [facility]#09898, Partial fill upon patient request if the pr... Start Date: 01/26/22 Status: Ordered Eucerin Eczema Relief topical cream 1 application, Topically, 2 times a day, # 240 Gm, 5 Refills, Maintenance, 01/15/21 16:05:00 EDT, [facility] #[id number], Partial fill upon patient request if the prescription is for a schedule II opioid drug., 1 application Topically 2 times a d... Start Date: 01/15/21 Status: Ordered guaiFENesin 400 mg oral tablet 1 tablet = 400 mg, By Mouth, Every 4 hours, PRN as needed for congestion and cough, # 30 tablet, 1 Refills, Maintenance, 08/27/21 13:40:00 EDT, Tablet, [facility] #[id number], Partial fill upon patient request if the [...] 2 Refills, Maintenance, 08/17/21 13:14:00 EDT, Syrup, [facility] #11841, 15 mL By Mouth Daily,PRN:as needed for [...] tablet, 5 Refills, Maintenance, 10/26/21 14:08:00 EDT, [facility]63741, Partial fill upon patient request if the prescription is for a schedule II opioid drug., 160, cm, 08/27/21 13:... Start Date: 10/26/21 Status: Ordered levothyroxine 75 mcg (0.075 mg) oral tablet 1 tablet = 75 mcg, By Mouth, Daily, TK 1 T PO D, # 90 tablet, 1 Refills, Maintenance, 04/21/22 9:43:00 EST, [facility] #40977, Partial fill upon patient request if the prescription is for a schedule II opioid drug., 160, cm, ... Start Date: 04/21/22 Status: Ordered lidocaine 4% mucous membrane solution 1 application, Topically, 2 times a day, PRN Pain , Mild, # 1 each, 0 Refills, Maintenance, 05/22/20 16:43:00 EST, [facility] #[id number], Partial fill upon patient request if the prescription is for a schedule II opioid drug., 1 application Topi... Start Date: 05/22/20 Status: Ordered midodrine 5 mg oral tablet 1, tablet, By Mouth, 3 times a day, # 90 tablet, Refills 3, Tot. Refills 3, Maintenance, 10/27/21 15:24:00 EDT, Route to Pharmacy Electronically, [facility][id number], 160, cm, 08/27/21 13:11:00 EDT, Height, 57.86, kg, 04/12/20 23:44:00 EST, [facility] Start Date: 10/27/21 Status: Ordered Nutritional Supplements See Instructions, # 90 each, Refills 11, Tot. 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 bbdondtzT62.4, G31.83, 07/09/22 17:02:00 EDT, Supply Start Date: 07/09/22 Status: Ordered omeprazole 40 mg oral enteric coated capsule 1 capsule, By Mouth, Daily, # 90 capsule, 1 Refills, 11/23/21 16:42:00 EDT, [id number], 160, cm, 08/27/21 13:11:00 EDT, Height, 57.86, [...] 05/03/22 11:14:00 EST, Route to Pharmacy Electronically, [facility] #[id number], 160, cm, 04/19/22 17:27:00 EST, Height Start Date: 05/03/22 Status: Ordered Urinal See Instructions, # 3 each, Refills 0, Tot. Refills 0, Maintenance, Use as needed for urinating. 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 Z74.01, G31.83, 05/22/20 17:15:00 EST, Supply Start Date: 05/22/20 Status: Ordered Washable Ride Operator Bed Pads Washable Ride Operator Bed Pads, See Instructions, # 4 each, [...] Pre-syncope Confirmed Active Orthostatic hypotension Confirmed Active *[id number] Strip Picker Yi Campos Confirmed Active Pain of right sacroiliac joint Confirmed Active Seizures Confirmed Active Lewy body dementia Confirmed Active Tinea cruris Confirmed Active Unintentional weight loss Confirmed Active Urinary incontinence Confirmed Active Vitamin D deficiency Confirmed Active Social History Social History Type Response Smoking Status Former smoker entered on: 08/26/15 Sex Patient Care team information Care Team Personnel Name: Matilde Mahmood RN Position: [facility] RN Member Role: Primary Care Nurse Name: Roberta Felipe NP Position: [facility] PCO Associate Professional Member Role: PCP Address: Address: [address] [place] [address] Name: Maci Kruse RN Position: [facility] SN RN Member Role: Primary Care Nurse Name: Lyudmila Ortez RN Position: [facility] RN Member Role: Primary Care Nurse Name: Lilo Maldonado RN Position: [facility] RN Member Role: Primary Care Nurse Name: Anuj Murillo RN Position: [facility] RN Member Role: Primary Care Nurse Name: Jasmin Oliva Position: [facility] Outreach Member Role: Lifetime Consulting Physician Name: Suzanne Celeste RN Position: [facility] RN Member Role: Primary Care Nurse Name: Lily Solis RN Position: [facility] Onco RN Member Role: Primary Care Nurse Name: Adela Tadeo RN Position: [facility] RN Member Role: Primary Care Nurse Name: Nancy Morrow RN Position: [facility] RN Member Role: Primary Care Nurse Name: Etta Dewitt RN Position: [facility] RN Member Role: Primary Care Nurse Care Team Related Persons Name: JESSIKA HEARD Address: [address] [address] Name: JESSICA JOSUE Address: home [address] [place] [address] Name: CARLOS CEJA Address: home [address] [address]
--- OUTSIDE RECORDS SUMMARY | 2022-10-25 20:03 | XMS_ITS | Continuity of Care Document ---
Author Name Unknown Organization [facility] Address [address] [place] [address]- Care Team Providers Care Side Stitching Machine Operator Name Role Phone Roberta Felipe NP Primary Care Physician Encounter [facility] Date(s): 12/24/20 - 01/23/[address] [address] Allergies, Adverse Reactions, Alerts Substance [...] Refills, Maintenance, 11/06/20 13:04:00 EDT, Ophth Solution, [facility] #[id number], Partial fill upon patient request if the [...] tablet, 5 Refills, Maintenance, 11/20/20 11:43:00 EDT, [facility] #[id number], Please print in haitian, 160, cm, 11/04/20 11:39:00 EDT, Height, 57.86, [...] Gm, 5 Refills, Maintenance, 01/15/21 16:05:00 EDT, [facility] #[id number], Partial fill upon patient request if the [...] 2 Refills, Maintenance, 11/06/20 13:03:00 EDT, Syrup, [facility] #[id number], Partial fill upon patient request if the [...] tablet, 3 Refills, Maintenance, 12/29/20 15:18:00 EDT, [facility][id number], Partial fill upon patient request if the prescription is for a schedule II opioid drug., 160, cm, 11/04/20 11:... Start Date: 12/29/20 Status: Ordered levothyroxine 75 mcg (0.075 mg) oral tablet 1 tablet = 75 mcg, By Mouth, Daily, TK 1 T PO D, # 90 tablet, 1 Refills, Maintenance, 09/16/20 14:56:00 EDT, Tablet, [facility] #[id number], Partial fill upon patient request if the prescriptionis for a schedule II opioid drug., 160, cm, ... Start Date: 09/16/20 Stop Date: 01/14/21 Status: Ordered lidocaine 4% mucous membrane solution 1 application, Topically, 2 times a day, PRN Pain , Mild, # 1 each, 0 Refills, Maintenance, 05/22/20 16:43:00 EST, [facility] #62562, Partial fill upon patient request if the prescription is for a schedule II opioid drug., 1 application Topi... Start Date: 05/22/20 Status: Ordered midodrine 5 mg oral tablet 1, tablet, By Mouth, 3 times a day, # 90 tablet, Refills 3, Tot. Refills 0, Maintenance, 10/22/20 13:38:00 EDT, Route to Pharmacy Electronically, [facility] #[id number], 160, cm, 09/26/20 14:49:00 EDT, Height, 57.86, [...] Mouth, Daily, # 90 capsule, 0 Refills, [facility] #[id number], 160, cm, 11/04/2110:39:00 EDT, Height, 57.86, kg, 04/12/20 23:44:00 EST, Dry Weight Start Date: 11/27/20 Status: Ordered traZODone 50 mg oral tablet 2, tablet, By Mouth, Daily at bedtime, # 60 tablet, Refills 2, Route to Pharmacy Electronically, [facility] #[id number], 160, cm, 11/04/20 11:39:00 EDT, Height, 57.86, [...] Myalgia(Confirmed) Active Pre-syncope(Confirmed) Active Orthostatic hypotension(Confirmed) Active *[id number] Care Partn er Tracy Lagos[place](Confirmed) Active Pain of right sacroiliac joint(Confirmed) Active Lewy body dementia(Confirmed) Active Tinea cruris(Confirmed) Active Unintentional weight loss(Confirmed) Active Urinary incontinence(Confirmed) Active Vitamin D deficiency(Confirmed) Active Social History Social History Type Response Smoking Status Former smoker entered on: 08/26/15 Sex
--- OUTSIDE RECORDS SUMMARY | 2022-10-25 20:03 | XMS_ITS | Continuity of Care Document ---
Author Name Unknown Organization [facility] Address [address] [place] [address]- Care Team Providers Care Tube Splicer Name Role Phone Destinee JIMENEZ, Roberta Merida Primary Care Physician Encounter [facility] Date(s): 02/20/22 - 05/05/[address] [address]- Attending Physician: Geovanny Robert MD Admitting Physician: Geovanny Robert MD Allergies, Adverse Reactions, Alerts Substance Reaction Severity Status penicillin rash Active Immunizations Given and Recorded Vaccine Date Status Refusal Reason [id number] 12y+ bivalent booster vax 03/05/22 Given influenza [...] inactivated 2 05/31/12 Gi davonte SARS-CoV-2 mRNA ([id number]) vax 06/19/21 Given SARS-CoV-2 (COVID-19) mRNA BNT-162b2 vac 05/17/20 Given SARS-CoV-2 (COVID-19) mRNA BNT-162b2 vac 3 04/26/20 Given pneumococcal 13-valent vaccine 08/31/16 Given pneumococcal 23-valent vaccine 4 05/31/12 Given tetanus/diphtheria/pertussis, acel(Tdap) 5 05/31/12 Given 1Result Comment: incorrect brand entered 2Admin Note: VIS dated 09/13/11 3Result Comment: Administered by Dalia Olguin NEWSAGENT 4Admin Note: VIS dated 12/17/08 5Admin Note: VIS dated 04/03/11 Medications Artificial Tears preserved solution 1 drops, Eyes, Both, 4 times a day, PRN Dry Eyes, # 10 mL, 11 Refills, Maintenance, 01/26/22 14:13:00 EST, Ophth Solution, [facility] #[id number], Partial fill upon patient request if the [...] tablet, 5 Refills, Maintenance, 10/26/21 14:08:00 EDT, [facility] #[id number], Please print in syrian, 160, cm, 08/27/21 13:11:00 EDT, Height, 57.86, [...] 01/26/22 14:13:00 EST, Route to Pharmacy Electronically, [facility]#[id number], Partial fill upon patient request if the pr... Start Date: 01/26/22 Status: Ordered Eucerin Eczema Relief topical cream 1 application, Topically, 2 times a day, # 240 Gm, 5 Refills, Maintenance, 01/15/21 16:05:00 EDT, [facility] #[id number], Partial fill upon patient request if the prescription is for a schedule II opioid drug., 1 application Topically 2 times a d... Start Date: 01/15/21 Status: Ordered guaiFENesin 400 mg oral tablet 1 tablet = 400 mg, By Mouth, Every 4 hours, PRN as needed for congestion and cough, # 30 tablet, 1 Refills, Maintenance, 08/27/21 13:40:00 EDT, Tablet, [facility] #[id number], Partial fill upon patient request if the [...] 2 Refills, Maintenance, 08/17/21 13:14:00 EDT, Syrup, [facility] #[id number], 15 mL By Mouth Daily,PRN:as needed for [...] tablet, 5 Refills, Maintenance, 10/26/21 14:08:00 EDT, [facility] #[id number], Partial fill upon patient request if the prescription is for a schedule II opioid drug., 160, cm, 08/27/21 13:... Start Date: 10/26/21 Status: Ordered levothyroxine 75 mcg (0.075 mg) oral tablet 1 tablet = 75 mcg, By Mouth, Daily, TK 1 T PO D, # 90 tablet, 1 Refills, Maintenance, 04/21/22 9:43:00 EST, Tablet, [facility] #[id number], Partial fill upon patient request if the prescription is for a schedule II opioid drug., 160, cm, ... Start Date: 04/21/22 Status: Ordered lidocaine 4% mucous membrane solution 1 application, Topically, 2 times a day, PRN Pain , Mild, # 1 each, 0 Refills, Maintenance, 05/22/20 16:43:00 EST, [facility] #[id number], Partial fill upon patient request if the prescription is for a schedule II opioid drug., 1 application Topi... Start Date: 05/22/20 Status: Ordered midodrine 5 mg oral tablet 1, tablet, By Mouth, 3 times a day, # 90 tablet, Refills 3, Tot. Refills 3, Maintenance, 10/27/21 15:24:00 EDT, Route to Pharmacy Electronically, [facility] #[id number], 160, cm, 08/27/21 13:11:00 EDT, Height, 57.86, kg, 04/12/20 23:44:00 EST, [facility] Start Date: 10/27/21 Status: Ordered Nutritional Supplements See Instructions, # 90 each, Refills 11, Tot. Refills 11, Maintenance, 1.5 kcal/ml, 237 ml q 8 hrs by mouth Ensure, 1 can TID, for unintended weight loss related to advanced dementia R63.4, G31.83, 05/04/22 14:07:00 EST, Supply Start Date: 05/04/22 Status: Ordered omeprazole 40 mg oral enteric coated capsule 1 capsule, By Mouth, Daily, # 90 capsule, 1 Refills, 11/23/21 16:42:00 EDT, [facility] #[id number], 160, cm, 08/27/21 13:11:00 EDT, Height, 57.86, kg, 04/12/20 23:44:00 EST, Dry Weight Start Date: 11/23/21 Status: Ordered traZODone 50 mg oral tablet 2, tablet, By Mouth, Daily at bedtime, # 60 tablet, Refills 2, Tot. Refills 2, 05/03/22 11:14:00 EST, Route to Pharmacy Electronically, [facility] #[id number], 160, cm, 04/19/22 17:27:00 EST, Height Start [...] Pre-syncope Confirmed Active Orthostatic hypotension Confirmed Active *[id number] Developmental Services Worker Yi Campos Confirmed Active Pain of right sacroiliac joint Confirmed Active Seizures Confirmed Active Lewy body dementia Confirmed Active Tinea cruris Confirmed Active Unintentional weight loss Confirmed Active Urinary incontinence Confirmed Active Vitamin D deficiency Confirmed Active Social History Social History Type Response Smoking Status Former smoker entered on: 08/26/15 Sex Patient Care team information Care Team Personnel Name: Matilde Mahmood RN Position: [facility] RN Member Role: Primary Care Nurse Name: Roberta Felipe NP Position: [facility] PCO Associate Professional Member Role: PCP Address: Address: [address] [place] [address] Name: ALESSANDRO VILLATORO RN Position: [facility] RN Member Role: Primary Care Nurse Name: Lilo Maldonado RN Position: [facility] RN Member Role: Primary Care Nurse Name: Anuj Murillo RN Position: [facility] RN Member Role: Primary Care Nurse Name: Jasmin Oliva Position: [facility] Outreach Member Role: Lifetime Consulting Physician Name: Suzanne Celeste RN Position: [facility] RN Member Role: Primary Care Nurse Name: Lily Solis RN Position: [facility] Onco RN Member Role: Primary Care Nurse Name: Adela Tadeo RN Position: [facility] RN Member Role: Primary Care Nurse Name: Maci Jones RN Position: [facility] RN Member Role: Primary Care Nurse Name: Nancy Morrow RN Position: S RN Member Role: Primary Care Nurse Name: Etta Dewitt RN Position: S RN Member Role: Primary Care Nurse Care Team Related Persons Name: JESSIKA HEARD Address: home [address] [place] [id number] Name: JESSICA JOSUE Address: home [address] [place] [address] Name: CARLOS CEJA Address: home [address] [place] [id number]
--- OUTSIDE RECORDS SUMMARY | 2022-10-25 20:03 | XMS_ITS | Continuity of Care Document ---
Author Name Unknown Organization [facility] Address [address] [place] [address]- Care Team Providers Care Contract Administrator Name Role Phone Destinee JIMENEZ, Roberta Merida Primary Care Physician [phone] Encounter [facility] Date(s): 05/18/22 - 06/17/[address] [address]- Allergies, Adverse Reactions, Alerts Substance Reaction Severity Status penicillin rash Active Immunizations Given and Recorded Vaccine Date Status Refusal Reason [id number] 12y+ bivalent booster vax 03/05/22 Given influenza [...] inactivated 2 05/31/12 Gi davonte SARS-CoV-2 mRNA (nxzduyv-emxz-oobxh) vax 06/19/21 Given SARS-CoV-2 (COVID-19) mRNA BNT-162b2 vac 05/17/20 Given SARS-CoV-2 (COVID-19) mRNA BNT-162b2 vac 3 04/26/20 Given pneumococcal 13-valent vaccine 08/31/16 Given pneumococcal 23-valent vaccine 4 05/31/12 Given tetanus/diphtheria/pertussis, acel(Tdap) 5 05/31/12 Given 1Result Comment: incorrect brand entered 2Admin Note: VIS dated 09/13/11 3Result Comment: Administered by Dalia Olguin TECHNOLOGY ENGINEER 4Admin Note: VIS dated 12/17/08 5Admin Note: VIS dated 04/03/11 Medications Artificial Tears preserved solution 1 drops, Eyes, Both, 4 times a day, PRN Dry Eyes, # 10 mL, 11 Refills, Maintenance, 01/26/22 14:13:00 EST, Ophth Solution, [facility] #[id number], Partial fill upon patient request if the [...] tablet, 5 Refills, Maintenance, 10/26/21 14:08:00 EDT, [facility] #[id number], Please print in estonian, 160, cm, 08/27/21 13:11:00 EDT, Height, 57.86, [...] 01/26/22 14:13:00 EST, Route to Pharmacy Electronically, [facility]#[id number], Partial fill upon patient request if the pr... Start Date: 01/26/22 Status: Ordered Eucerin Eczema Relief topical cream 1 application, Topically, 2 times a day, # 240 Gm, 5 Refills, Maintenance, 01/15/21 16:05:00 EDT, [facility] #[id number], Partial fill upon patient request if the prescription is for a schedule II opioid drug., 1 application Topically 2 times a d... Start Date: 01/15/21 Status: Ordered guaiFENesin 400 mg oral tablet 1 tablet = 400 mg, By Mouth, Every 4 hours, PRN as needed for congestion and cough, # 30 tablet, 1 Refills, Maintenance, 08/27/21 13:40:00 EDT, Tablet, [facility] #[id number], Partial fill upon patient request if the [...] 2 Refills, Maintenance, 08/17/21 13:14:00 EDT, Syrup, [facility] #[id number], 15 mL By Mouth Daily,PRN:as needed for [...] 5 Refills, Maintenance, 10/26/21 14:08:00 EDT, Tablet, [facility] #[id number], Partial fill upon patient request if the prescription is for a schedule II opioid drug., 160, cm, 08/27/21 13:... Start Date: 10/26/21 Status: Ordered levothyroxine 75 mcg (0.075 mg) oral tablet 1 tablet = 75 mcg, By Mouth, Daily, TK 1 T PO D, # 90 tablet, 1 Refills, Maintenance, 04/21/22 9:43:00 EST, Tablet, [facility] #[id number], Partial fill upon patient request if the prescription is for a schedule II opioid drug., 160, cm, ... Start Date: 04/21/22 Status: Ordered lidocaine 4% mucous membrane solution 1 application, Topically, 2 times a day, PRN Pain , Mild, # 1 each, 0 Refills, Maintenance, 05/22/20 16:43:00 EST, [facility] #[id number], Partial fill upon patient request if the prescription is for a schedule II opioid drug., 1 application Topi... Start Date: 05/22/20 Status: Ordered midodrine 5 mg oral tablet 1, tablet, By Mouth, 3 times a day, # 90 tablet, Refills 3, Tot. Refills 3, Maintenance, 10/27/21 15:24:00 EDT, Route to Pharmacy Electronically, [facility] #[id number], 160, cm, 08/27/21 13:11:00 EDT, Height, 57.86, [...] 90 capsule, 1 Refills, 11/23/21 16:42:00 EDT, [facility] #[id number], 160, cm, 08/27/21 13:11:00 EDT, Height, 57.86, [...] 05/03/22 11:14:00 EST, Route to Pharmacy Electronically, [facility] #[id number], 160, cm, 04/19/22 17:27:00 EST, Height Start Date: 05/03/22 Status: Ordered Urinal See Instructions, # 3 each, Refills 0, Tot. Refills 0, Maintenance, Use as needed for urinating. 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 Z74.01, G31.83, 05/22/20 17:15:00 EST, Supply Start Date: 05/22/20 Status: Ordered Washable Patient Admitting Representative Bed Pads Washable Patient Admitting Representative Bed Pads, See Instructions, # 4 each, [...] Pre-syncope Confirmed Active Orthostatic hypotension Confirmed Active *[id number] Inbound Telemarketer Yi Campos Confirmed Active Pain of right sacroiliac joint Confirmed Active Seizures Confirmed Active Lewy body dementia Confirmed Active Tinea cruris Confirmed Active Unintentional weight loss Confirmed Active Urinary incontinence Confirmed Active Vitamin D deficiency Confirmed Active Social History Social History Type Response Smoking Status Former smoker entered on: 08/26/15 Sex Patient Care team information Care Team Personnel Name: Matilde Mahmood RN Position: [facility] RN Member Role: Primary Care Nurse Name: Roberta Felipe NP Position: [facility] PCO Associate Professional Member Role: PCP Address: Address: [address] [place] [address]- Name: Maci Kruse RN Position: [facility] RN Member Role: Primary Care Nurse Name: ALESSANDRO VILLATORO RN Position: [facility] RN Member Role: Primary Care Nurse Name: Lilo Maldonado RN Position: [facility] RN Member Role: Primary Care Nurse Name: Anuj Murillo RN Position: [facility] RN Member Role: Primary Care Nurse Name: Jasmin Oliva Position: [facility] Outreach Member Role: Lifetime Consulting Physician Name: Suzanne Celeste RN Position: [facility] RN Member Role: Primary Care Nurse Name: Lily Solis RN Position: [facility] Onco RN Member Role: Primary Care Nurse Name: Adela Tadeo RN Position: [facility] RN Member Role: Primary Care Nurse Name: Nancy Morrow RN Position: [facility] RN Member Role: Primary Care Nurse Name: Etta Dewitt RN Position: [facility] RN Member Role: Primary Care Nurse Care Team Related Persons Name: JESSIKA HEARD Address: [address] [address] Name: JESSICA JOSUE Address: [address] [place] [address] Name: CARLOS CEJA Address: [address] [address]
--- OUTSIDE RECORDS SUMMARY | 2022-10-25 20:03 | XMS_ITS | Continuity of Care Document ---
Author Name Unknown Organization [facility] Address [address] [place] [address]- Care Team Providers Care Band Tier Name Role Phone Roberta Felipe NP Primary Care Physician Encounter [facility] Date(s): 01/15/21 - 03/26/[address] [address]- Attending Physician: Argentina Drake MD Admitting Physician: Argentina Drake MD Referring Physician: Roberta Felipe NP Allergies, [...] Refills, Maintenance, 11/06/20 13:04:00 EDT, Ophth Solution, [facility] #[id number], Partial fill upon patient request if the [...] tablet, 5 Refills, Maintenance, 11/20/20 11:43:00 EDT, [facility] #[id number], Please print in cameroonian, 160, cm, 11/04/20 11:39:00 EDT, Height, 57.86, [...] Gm, 5 Refills, Maintenance, 01/15/21 16:05:00 EDT, [facility] #[id number], Partial fill upon patient request if the [...] 2 Refills, Maintenance, 11/06/20 13:03:00 EDT, Syrup, [facility] #[id number], Partial fill upon patient request if the [...] 3 Refills, Maintenance, 02/20/21 12:51:00 EST, Tablet, [facility] #[id number], Partial fill upon patient request if the prescription is for a schedule II opioid drug., 160, cm, 01/15/21 14:... Start Date: 02/20/21 Status: Ordered levothyroxine 75 mcg (0.075 mg) oral tablet 1 tablet = 75 mcg, By Mouth, Daily, TK 1 T PO D, # 90 tablet, 1 Refills, Maintenance, 02/19/21 13:28:00 EST, Tablet, [facility] #[id number], Partial fill upon patient request if the prescriptionis for a schedule II opioid drug., 160, cm, ... Start Date: 02/19/21 Status: Ordered lidocaine 4% mucous membrane solution 1 application, Topically, 2 times a day, PRN Pain , Mild, # 1 each, 0 Refills, Maintenance, 05/22/20 16:43:00 EST, [facility] #[id number], Partial fill upon patient request if the prescription is for a schedule II opioid drug., 1 application Topi... Start Date: 05/22/20 Status: Ordered midodrine 5 mg oral tablet 1, tablet, By Mouth, 3 times a day, # 90 tablet, Refills 3, Tot. Refills 0, Maintenance, 10/22/20 13:38:00 EDT, Route to Pharmacy Electronically, [facility] #[id number], 160, cm, 09/26/20 14:49:00 EDT, Height, 57.86, [...] 90 capsule, 0 Refills, 02/18/21 14:33:00 EST, [facility] #[id number], 160, cm, 01/15/21 14:39:00 EDT, Height, 57.86, kg, 04/12/20 23:44:00 EST, Dry Weight Start Date: 02/18/21 Status: Ordered traZODone 50 mg oral tablet 2, tablet, By Mouth, Daily at bedtime, # 60 tablet, Refills 2, Route to Pharmacy Electronically, [facility] #[id number], 160, cm, 11/04/20 11:39:00 EDT, Height, 57.86, [...] Myalgia(Confirmed) Active Pre-syncope(Confirmed) Active Orthostatic hypotension(Confirmed) Active *[id number] Care Partn er Tracy Hurst(Confirmed) Active Pain of right sacroiliac joint(Confirmed) Active Lewy body dementia(Confirmed) Active Tinea cruris(Confirmed) Active Unintentional weight loss(Confirmed) Active Urinary incontinence(Confirmed) Active Vitamin D deficiency(Confirmed) Active Social History Social History Type Response Smoking Status Former smoker entered on: 08/26/15 Sex
--- OUTSIDE RECORDS SUMMARY | 2022-10-25 20:03 | XMS_ITS | Continuity of Care Document ---
Author Name Unknown Organization [facility] Address [address] [place] [address]- Care Team Providers Care Sharepoint Consultant Name Role Phone Destinee JIMENEZ, Roberta Merida Primary Care Physician [phone] Encounter [facility] Date(s): 03/13/19 - 03/18/19 [facility] [address] [place] [address] Encounter Diagnosis Dehydration(Final) - 03/13/19 Discharge Disposition: A-D/C Home Attending Physician: Sarah Nunn MD Admitting Physician: Alvaro Beth DO Referring Physician: Not on Staff, Referring MD [...] dry eyes Start Date: 05/17/18 Status: Ordered cefixime 400 mg oral tablet 1 tablet = 400 mg, By Mouth, Every 24 hours, for 2 days, # 2 tablet, 0 Refills, Acute 03/20/19 12:00:00 EST, 03/18/19 12:00:00 EST, Tablet, [email or web address] #[id number], 160, cm, 03/13/19 15:51:00 EST, Height Start Date: 03/18/19 Stop Date: 03/20/19 Status: Ordered Compression Stockings See Instructions, # 3 pair, Refills 3, Tot. Refills 3, Maintenance, surgical, knee length 20-30 mm Hg Wear daily to improve circulation for orthostatic hypotension I95.1, 08/10/18 13:38:24 EDT, Compound Start Date: 08/10/18 Status: Ordered lactulose 10 gm/15 ml oral syrup See Instructions, # 480 mL, TAKE 15ML BY MOUTH ONCE DAILY NEEDED FOR CONSTIPATION., [email or web address] #[id number] Start Date: 11/24/18 Status: Ordered levothyroxine 75 [...] EST, Tablet Start Date: 01/17/18 Status: Ordered omeprazole 40 mg oral enteric [...] back pain(Confirmed) Active Hypotension(Confirmed) Active Myalgia(Confirmed) Active *[id number]-[facility] Partn er- Vimal Mcfarland(Confirmed) Active Pain of right sacroiliac joint(Confirmed) Active Lewy body dementia(Confirmed) Active Tinea cruris(Confirmed) Active Vitamin D deficiency(Confirmed) Active Results Radiology Reports * Exam Date Time Procedure Performing Provider Status 03/13/19 6:20 PM Chest 2 Views Frontal and Lat Mary Grace Burnette; Auth (Verified) Notes: (Chest 2 Views Frontal and Lat) Reason For Exam: Shortness of Breath, Fever;Other: RESULT: Chest 2 Views Frontal and Lat Chest 2 Views Frontal and Lat Reason: Other:; Shortness of Breath, Fever; Clinical Question(s): Pneumonia; Hx of Present Illness:pt reports feeling weak and tired, poor historian, continues to cry and sts my family, they dont care difficult to get story about what brought him here today.; Other Objective Findings: alert andoriented, tearful, lungs clear, + dry cough, dry mucus to nares, no distress at this time COMPARISON: 07/24/2017. FINDINGS: LINES AND TUBES: None. LUNGS AND PLEURA: Clear lungs. Normal pulmonary vascularity. No pleural effusion. No pneumothorax. HEART, MEDIASTINUM AND VICKIE: Heart is normal in size. Normal mediastinal and hilar contour. BONES AND SOFT TISSUES: No acute abnormality. Degenerative endplate osteophyte formation is noted in the thoracic spine. IMPRESSION: No acute abnormality. WSN: [id number] Dictated By: Rosalinda Gutierrez MD Dictated Date/Time: 03/13/19 6:23 pm Reviewed By: Rosalinda Gutierrez MD Signed By: Rosalinda Gutierrez MD Signed Date/Time: 03/13/19 6:23 pm Transcribed By: KESHIA Transcribed Date/Time: 03/13/19 6:21 pm Vital Signs Most recent to oldest [Reference Range]: 1 2 3 Weight 60.8 kg (03/18/19 5:25 AM) 60.8 kg (03/17/19 5:36 AM) 60.4 kg (03/15/19 5:54 AM) Oxygen Saturation [94-100 %] 100 % (03/18/19 11:30 AM) 99 % (03/18/19 5:25 AM) 92 % *L* (03/17/19 11:14 PM) Pulse Rate [55-90 bpm] 66 bpm (03/18/19 11:30 AM) 66 bpm (03/18/19 5:25 AM) 69 bpm (03/17/19 11:14 PM) Blood Pressure [90-138/55-84 mm Hg] 133/75mm Hg (03/18/19 11:30 AM) 150/90mm Hg *H* (03/18/19 5:25 AM) 108/59mm Hg (03/17/19 11:14 PM) Respiratory Rate [16-30 br/min] 18 br/min (03/18/19 11:30 AM) 18 br/min (03/18/19 5:25 AM) 18 br/min (03/17/19 11:14 PM) Temperature [96.8-100.4 DegF] 97.6 DegF (03/18/19 11:30 AM) 97.8 DegF (03/18/19 5:25 AM) 98.4 DegF (03/17/19 11:14 PM) Mode of Delivery (Oxygen) Room air (03/18/19 11:30 AM) Room air (03/18/19 5:25 AM) Room air (03/17/19 11:14 PM) Blood pressure sites Arm, left (03/18/19 11:30 AM) Arm, right (03/18/19 5:25 AM) Arm, left (03/17/19 11:14 PM) Temperature Route Oral (03/18/19 11:30 AM) Oral (03/18/19 5:25 AM) Oral (03/17/19 11:14 PM) Weight Obtained Via Bed scale (03/18/19 5:25 AM) Bed scale (03/15/19 5:54 AM) Sensory deficits None (03/14/19 4:23 PM) Mobility assistance Total assistance (03/14/19 4:23 PM) Social History Social History Type Response Smoking Status Former smoker entered on: 08/26/15 Sex
--- OUTSIDE RECORDS SUMMARY | 2022-10-25 20:03 | XMS_ITS | Continuity of Care Document ---
Author Name Unknown Organization [facility] Address [address] [facility], [address] d Floor, [address] [place] [address]- Care Team Providers Care Administrative And Program Specialist Name Role Phone Destinee JIMENEZ, Roberta Merida Primary Care Physician Encounter [facility] Date(s): 08/26/22 - 09/25/22 [facility] [address], [address], [address] [place] [address] Allergies, Adverse Reactions, Alerts Substance Reaction Severity Status penicillin rash Active Immunizations Given and Recorded Vaccine Date Status Refusal Reason [id number] 12y+ bivalent booster vax 03/05/22 Given influenza [...] inactivated 2 05/31/12 Gi davonte SARS-CoV-2 mRNA ([id number]) vax 06/19/21 Given SARS-CoV-2 (COVID-19) mRNA BNT-162b2 vac 05/17/20 Given SARS-CoV-2 (COVID-19) mRNA BNT-162b2 vac 3 04/26/20 Given pneumococcal 13-valent vaccine 08/31/16 Given pneumococcal 23-valent vaccine 4 05/31/12 Given tetanus/diphtheria/pertussis, acel(Tdap) 5 05/31/12 Given 1Result Comment: incorrect brand entered 2Admin Note: VIS dated 09/13/11 3Result Comment: Administered by Dalia Olguin BIOMEDICAL EQUIPMENT TECHNICIAN 4Admin Note: VIS dated 12/17/08 5Admin Note: VIS dated 04/03/11 Medications Artificial Tears preserved solution 1 drops, Eyes, Both, 4 times a day, PRN Dry Eyes, # 10 mL, 11 Refills, Maintenance, 01/26/22 14:13:00 EST, Ophth Solution, [email or web address] #[id number], Partial fill upon patient request if the [...] tablet, 5 Refills, Maintenance, 08/26/22 16:55:00 EDT, [facility] #[id number], Please print in croatian, 160, cm, 06/18/22 14:50:00 EDT, Height Start Date: 08/26/22 Status: Ordered Diapers See Instructions, # 240 each, Refills 11, Tot. Refills 11, Maintenance, Size Large. Use up to 8 daily for urinary incontinence R32, 05/22/20 17:15:00 EST, Supply Start Date: 05/22/20 Status: Ordered diphenhydrAMINE 2% topical cream 1 application, Topically, 3 times a day, PRN for itching, # 60 Gm, 1 Refills, Maintenance, 06/18/2314:05:00 EDT, Cream, [facility] #[id number], Partial fill upon patient request if the prescription is for a schedule II opioid drug., 1 applicatio... Start Date: 06/18/22 Status: Ordered docusate sodium 100 mg oral capsule 100 mg, 1, capsule, By Mouth, 2 times a day, PRN, # 60 capsule, Refills 3, Tot. Refills 3, Maintenance, for constipation, 01/26/22 14:13:00 EST, Route to Pharmacy Electronically, [facility][id number], Partial fill upon patient request if the pr... Start Date: 01/26/22 Status: Ordered Eucerin Eczema Relief topical cream 1 application, Topically, 2 times a day, # 240 Gm, 5 Refills, Maintenance, 01/15/21 16:05:00 EDT, [email or web address] #[id number], Partial fill upon patient request if the prescription is for a schedule II opioid drug., 1 application Topically 2 times a d... Start Date: 01/15/21 Status: Ordered guaiFENesin 400 mg oral tablet 1 tablet = 400 mg, By Mouth, Every 4 hours, PRN as needed for congestion and cough, # 30 tablet, 1 Refills, Maintenance, 08/27/21 13:40:00 EDT, Tablet, [facility] #[id number], Partial fill upon patient request if the [...] 2 Refills, Maintenance, 08/17/21 13:14:00 EDT, Syrup, [email or web address] #[id number], 15 mL By Mouth Daily,PRN:as needed for [...] tablet, 5 Refills, Maintenance, 08/26/22 16:54:00 EDT, [facility] #[id number], Partial fill upon patient request if the prescription is for a schedule II opioid drug., 160, cm, 06/18/22 14:... Start Date: 08/26/22 Status: Ordered levothyroxine 75 mcg (0.075 mg) oral tablet 1 tablet = 75 mcg, By Mouth, Daily, TK 1 T PO D, # 90 tablet, 1 Refills, Maintenance, 04/21/22 9:43:00 EST, Tablet, [facility] #[id number], Partial fill upon patient request if the prescription is for a schedule II opioid drug., 160, cm, ... Start Date: 04/21/22 Status: Ordered lidocaine 4% mucous membrane solution 1 application, Topically, 2 times a day, PRN Pain , Mild, # 1 each, 0 Refills, Maintenance, 05/22/20 16:43:00 EST, [email or web address] #[id number], Partial fill upon patient request if the prescription is for a schedule II opioid drug., 1 application Topi... Start Date: 05/22/20 Status: Ordered midodrine 5 mg oral tablet 1, tablet, By Mouth, 3 times a day, # 90 tablet, Refills 3, Tot. Refills 3, Maintenance, 10/27/21 15:24:00 EDT, Route to Pharmacy Electronically, [email or web address] #[id number], 160, cm, 08/27/21 13:11:00 EDT, Height, 57.86, kg, 04/12/20 23:44:00 ESTDr... Start Date: 10/27/21 Status: Ordered Nutritional Supplements See Instructions, # 90 each, Refills 11, Tot. 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 eowogzubE89.4, G31.83, 07/09/22 17:02:00 EDT, Supply Start Date: 07/09/22 Status: Ordered omeprazole 40 mg oral enteric coated capsule 1 capsule, By Mouth, Daily, # 90 capsule, 1 Refills, 09/15/22 16:21:00 EDT, [email or web address] #[id number], 160, cm, 06/18/22 14:50:00 EDT, Height Start [...] 05/03/22 11:14:00 EST, Route to Pharmacy Electronically, [email or web address] #[id number], 160, cm, 04/19/22 17:27:00 EST, Height Start Date: 05/03/22 Status: Ordered Urinal See Instructions, # 3 each, Refills 0, Tot. Refills 0, Maintenance, Use as needed for urinating. 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 Z74.01, G31.83, 05/22/20 17:15:00 EST, Supply Start Date: 05/22/20 Status: Ordered Washable Forensic Specialist Bed Pads Washable Forensic Specialist Bed Pads, See Instructions, # 4 each, [...] Pre-syncope Confirmed Active Orthostatic hypotension Confirmed Active *[id number] [employer] Specialist Yi Campos Confirmed Active Pain of [...] Team Personnel Name: Matilde Mahmood RN Position: [facility] RN Member Role: Primary Care Nurse Name: Roberta Felipe NP Position: [facility] PCO Associate Professional Member Role: PCP Address: Address: [address] [place] [address]- Name: Maci Kruse RN Position: [facility] SN RN Member Role: Primary Care Nurse Name: Lyudmila Ortez RN Position: [facility] RN Member Role: Primary Care Nurse Name: Lilo Maldoando RN Position: [facility] RN Member Role: Primary Care Nurse Name: Anuj Murillo RN Position: [facility] RN Member Role: Primary Care Nurse Name: Jasmin Oliva Position: [facility] Outreach Member Role: Lifetime Consulting Physician Name: Suzanne Celeste RN Position: [facility] RN Member Role: Primary Care Nurse Name: Lily Solis RN Position: [facility] Onco RN Member Role: Primary Care Nurse Name: Adela Tadeo RN Position: [facility] RN Member Role: Primary Care Nurse Name: Nancy Morrow RN Position: [facility] RN Member Role: Primary Care Nurse Name: Etta Dewitt RN Position: [facility] RN Member Role: Primary Care Nurse Care Team Related Persons Name: JESSIKA HEARD Address: [address] [address] Name: JESSICA JOSUE Address: [address] [place] [address] Name: CARLOS CEJA Address: [address] [address]
--- OUTSIDE RECORDS SUMMARY | 2022-10-25 20:04 | XMS_ITS | Continuity of Care Document ---
Author Name Unknown Organization [facility] Address [address] [place] [address]- Care Team Providers Care Special Education Teacher Name Role Phone Destinee JIMENEZ, Roberta Merida Primary Care Physician [facility]counter [facility] Date(s): 11/20/19 - 12/20/[address] [address]- [facility] Allergies, Adverse Reactions, Alerts Substance Reaction [...] mL, 11 Refills, Maintenance, 10/03/19 11:19:00 EDT, [facility] #[id number], 1 drops Eyes, Both 3 times a [...] mL, 3 Refills, Maintenance, 10/04/19 11:21:00 EDT, [facility] #[id number], 30, 15 mL By Mouth Daily,PRN: NEEDED FOR CONSTIPATION, 160, cm, 03/22/19 15:22:00 EST, Height Start Date: 10/04/19 Status: Ordered levothyroxine 75 mcg (0.075 mg) oral tablet 1 tablet = 75 mcg, By Mouth, Daily, increase in dose, # 90 tablet, 1 Refills, Maintenance, 11/07/2009:50:00 EDT, Tablet, [facility] #[id number], 160, cm, 03/22/19 15:22:00 EST, Height Start [...] capsule, 1 Refills, Maintenance, 11/23/19 15:26:00 EDT, [facility] #[id number], 160, cm, 03/22/19 15:22:00 EST, Height Start Date: 11/23/19 Status: Ordered warfarin 2.5 mg oral tablet 1 tablet, By Mouth, Daily, DIRECTED BY NURSE BASED ON INR RESULTS., # 30 tablet, 11 Refills, Maintenance, 09/18/19 16:11:00 EDT, [facility] #[id number], 160, cm, 03/22/19 15:22:00 EST, Height Start [...] back pain(Confirmed) Active Hypotension(Confirmed) Active Myalgia(Confirmed) Active *[id number]-[facility] Partn jeramie Mcfarland(Confirmed) Active Pain of right sacroiliac joint(Confirmed) Active Lewy body dementia(Confirmed) Active Tinea cruris(Confirmed) Active Urinary incontinence(Confirmed) Active Vitamin D deficiency(Confirmed) Active Social History Social History Type Response Smoking Status Former smoker entered on: 08/26/15 Sex
--- OUTSIDE RECORDS SUMMARY | 2022-10-25 20:04 | XMS_ITS | Continuity of Care Document ---
Author Name Unknown Organization [facility] Address [address] [place] [address]- Care Team Providers Care Appointment Clerk Name Role Phone Roberta Felipe NP Primary Care Physician Encounter [facility] Date(s): 11/20/20 - 12/25/[address] [address]- Attending Physician: Argentina Drake MD Admitting Physician: [...] Refills, Maintenance, 11/06/20 13:04:00 EDT, Ophth Solution, [facility] #[id number], Partial fill upon patient request if the [...] tablet, 5 Refills, Maintenance, 11/20/20 11:43:00 EDT, [facility] #[id number], Please print in irish, 160, cm, 11/04/20 11:39:00 EDT, Height, 57.86, [...] 2 Refills, Maintenance, 11/06/20 13:03:00 EDT, Syrup, [facility] #[id number], Partial fill upon patient request if the [...] 6 Refills, Maintenance, 11/20/20 11:42:00 EDT, Tablet, [facility] #04248, Partial fill upon patient request if the prescription is for a schedule II opioid drug., 160, cm, 11/04/20 11:... Start Date: 11/20/20 Stop Date: 06/18/21 Status: Ordered levothyroxine 75 mcg (0.075 mg) oral tablet 1 tablet = 75 mcg, By Mouth, Daily, TK 1 T PO D, # 90 tablet, 1 Refills, Maintenance, 09/16/20 14:56:00 EDT, Tablet, [facility] #[id number], Partial fill upon patient request if the prescriptionis for a schedule II opioid drug., 160, cm, ... Start Date: 09/16/20 Stop Date: 01/14/21 Status: Ordered lidocaine 4% mucous membrane solution 1 application, Topically, 2 times a day, PRN Pain , Mild, # 1 each, 0 Refills, Maintenance, 05/22/20 16:43:00 EST, [facility] #[id number], Partial fill upon patient request if the prescription is for a schedule II opioid drug., 1 application Topi... Start Date: 05/22/20 Status: Ordered midodrine 5 mg oral tablet 1, tablet, By Mouth, 3 times a day, # 90 tablet, Refills 3, Tot. Refills 0, Maintenance, 10/22/20 13:38:00 EDT, Route to Pharmacy Electronically, [facility] #[id number], 160, cm, 09/26/20 14:49:00 EDT, Height, 57.86, [...] Mouth, Daily, # 90 capsule, 0 Refills, [facility] #[id number], 160, cm, 11/04/2110:39:00 EDT, Height, 57.86, kg, 04/12/20 23:44:00 EST, Dry Weight Start Date: 11/27/20 Status: Ordered traZODone 50 mg oral tablet 2, tablet, By Mouth, Daily at bedtime, # 60 tablet, Refills 2, Route to Pharmacy Electronically, [facility] #[id number], 160, cm, 11/04/20 11:39:00 EDT, Height, 57.86, [...] Myalgia(Confirmed) Active Pre-syncope(Confirmed) Active Orthostatic hypotension(Confirmed) Active *[id number] Care Partn er Tracyyusuf Hurst(Confirmed) Active Pain of right sacroiliac joint(Confirmed) Active Lewy body dementia(Confirmed) Active Tinea cruris(Confirmed) Active Unintentional weight loss(Confirmed) Active Urinary incontinence(Confirmed) Active Vitamin D deficiency(Confirmed) Active Social History Social History Type Response Smoking Status Former smoker entered on: 08/26/15 Sex
--- OUTSIDE RECORDS SUMMARY | 2022-10-25 20:04 | XMS_ITS | Continuity of Care Document ---
Author Name Unknown Organization [facility] Address [address] [facility], 3r d Floor, [address] [place] [address]- Care Team Providers Care Ground Support Equipment Fitter Name Role Phone Destinee JIMENEZ, Roberta Merida Primary Care Physician [place] [facility] [place] - 06/10/19 [facility] [address] [facility], 3rd Floor, [address] [place] [address]- [facility] Attending Physician: Hiren Blackburn Admitting Physician: AdmHiren [...] Refills, Acute 09/28/19 0:01:00EDT, 05/30/19 0:00:00 EDT, [facility] #[id number], 30, 15 mL By Mouth Daily,PRN: NEEDED [...] capsule, 2 Refills, Maintenance, 05/29/19 17:08:00 EDT, [facility] #[id number], 160, cm, 03/22/19 15:22:00 EST, Height Start Date: 05/29/19 Status: Ordered warfarin 2.5 mg oral tablet 1 tablet, By Mouth, Daily, DIRECTED BY NURSE BASED ON INR RESULTS., # 30 tablet, 11 Refills, Maintenance, 05/22/19 10:41:00 EDT, [facility] #[id number], 160, cm, 03/22/19 15:22:00 EST, Height Start [...] back pain(Confirmed) Active Hypotension(Confirmed) Active Myalgia(Confirmed) Active *[id number]-[facility] Partn christie- Vimal Mcfarland(Confirmed) Active Pain of right sacroiliac joint(Confirmed) Active Lewy body dementia(Confirmed) Active Tinea cruris(Confirmed) Active Vitamin D deficiency(Confirmed) Active Social History Social History Type Response Smoking Status Former smoker entered on: 08/26/15 Sex
--- OUTSIDE RECORDS SUMMARY | 2022-10-25 20:04 | XMS_ITS | Continuity of Care Document ---
Author Name Unknown Organization [facility] Address [address] [place] [address]- Care Team Providers Care Inspector Exhaust Emissions Name Role Phone Destinee JIMENEZ, Roberta Merida Primary Care Physician [id number] Date(s): 05/15/19 - 07/07/[address] [address]- [facility] Attending Physician: Med Douglas MD Admitting Physician: Med Douglas MD Referring Physician: Rufina Espinoza MD Allergies, Adverse Reactions, Alerts Substance Reaction [...] Refills, Acute 09/28/19 0:01:00EDT, 05/30/19 0:00:00 EDT, [facility] #[id number], 30, 15 mL By Mouth Daily,PRN: NEEDED [...] capsule, 2 Refills, Maintenance, 05/29/19 17:08:00 EDT, [facility] #[id number], 160, cm, 03/22/19 15:22:00 EST, Height Start Date: 05/29/19 Status: Ordered warfarin 2.5 mg oral tablet 1 tablet, By Mouth, Daily, DIRECTED BY NURSE BASED ON INR RESULTS., # 30 tablet, 11 Refills, Maintenance, 05/22/19 10:41:00 EDT, [facility] #52965, 160, cm, 03/22/19 15:22:00 EST, Height Start [...] back pain(Confirmed) Active Hypotension(Confirmed) Active Myalgia(Confirmed) Active *[phone]-Care Partn christie- Vimal Mcfarland(Confirmed) Active Pain of right sacroiliac joint(Confirmed) Active Lewy body dementia(Confirmed) Active Tinea cruris(Confirmed) Active Vitamin D deficiency(Confirmed) Active Social History Social History Type Response Smoking Status Former smoker entered on: 08/26/15 Sex
--- OUTSIDE RECORDS SUMMARY | 2022-10-25 20:04 | XMS_ITS | Continuity of Care Document ---
Author Name Unknown Organization [facility] Address [address] [place] [address]- Care Team Providers Care Collections And Archives Director Name Role Phone Roberta Felipe NP Primary Care Physician Encounter [facility] Date(s): 05/30/20 - 06/29/[address] [address]- Allergies, Adverse Reactions, Alerts Substance Reaction Severity [...] 11 Refills, Maintenance, 06/24/20 14:40:00 EDT, Tablet, [facility] #[id number], Partial fill upon patient request if the [...] 3 Refills, Maintenance, 05/19/20 14:56:00 EST, Tablet, [facility] #69308, Partial fill upon patient request if the prescriptionis for a schedule II opioid drug., 160, cm, ... Start Date: 05/19/20 Stop Date: 09/16/20 Status: Ordered lidocaine 4% mucous membrane solution 1 application, Topically, 2 times a day, PRN Pain , Mild, # 1 each, 0 Refills, Maintenance, 05/22/20 16:43:00 EST, [facility] #[id number], Partial fill upon patient request if the prescription is for a schedule II opioid drug., 1 application Topi... Start Date: 05/22/20 Status: Ordered midodrine 5 mg oral tablet 5 mg, 1, tablet, By Mouth, 3 times a day, lower dose tablet, # 90 tablet, Refills 3, Tot. Refills 3, Maintenance, 06/23/20 14:16:00 EDT, Route to Pharmacy Electronically, [facility] #[id number],Partial fill upon patient request if the prescripti... [...] capsule, 0 Refills, Maintenance, 06/23/20 8:58:00 EDT, [facility] #[id number], 160, cm, 05/21/20 9:12:00 EST, Height, 57.86, [...] Myalgia(Confirmed) Active Pre-syncope(Confirmed) Active Orthostatic hypotension(Confirmed) Active *[phone] Care Partn er Tracyyusuf Hurst(Confirmed) Active Pain of right sacroiliac joint(Confirmed) Active Lewy body dementia(Confirmed) Active Tinea cruris(Confirmed) Active Unintentional weight loss(Confirmed) Active Urinary incontinence(Confirmed) Active Vitamin D deficiency(Confirmed) Active Social History Social History Type Response Smoking Status Former smoker entered on: 08/26/15 Sex
--- OUTSIDE RECORDS SUMMARY | 2022-10-25 20:04 | XMS_ITS | Continuity of Care Document ---
Author Name Unknown Organization [facility] Address [address] [place] [address]- Care Team Providers Care Dyehouse Worker Name Role Phone Destinee JIMENEZ, Roberta Merida Primary Care Physician Encounter [facility] Date(s): 09/15/22 - 10/15/[address] [address]- Allergies, Adverse Reactions, Alerts Substance Reaction Severity Status penicillin rash Active Immunizations Given and Recorded Vaccine Date Status Refusal Reason [id number] 12y+ bivalent booster vax 03/05/22 Given influenza [...] inactivated 2 05/31/12 Gi davonte SARS-CoV-2 mRNA (btxgsou-tcaz-glmvm) vax 06/19/21 Given SARS-CoV-2 (COVID-19) mRNA BNT-162b2 vac 05/17/20 Given SARS-CoV-2 (COVID-19) mRNA BNT-162b2 vac 3 04/26/20 Given pneumococcal 13-valent vaccine 08/31/16 Given pneumococcal 23-valent vaccine 4 05/31/12 Given tetanus/diphtheria/pertussis, acel(Tdap) 5 05/31/12 Given 1Result Comment: incorrect brand entered 2Admin Note: VIS dated 09/13/11 3Result Comment: Administered by Dalia Olguin FOURTH HAND 4Admin Note: VIS dated 12/17/08 5Admin Note: VIS dated 04/03/11 Medications Artificial Tears preserved solution 1 drops, Eyes, Both, 4 times a day, PRN Dry Eyes, # 10 mL, 11 Refills, Maintenance, 01/26/22 14:13:00 EST, Ophth Solution, [facility] #[id number], Partial fill upon patient request if the [...] tablet, 5 Refills, Maintenance, 08/26/22 16:55:00 EDT, [facility] #[id number], Please print in kyrgyz, 160, cm, 06/18/22 14:50:00 EDT, Height Start [...] Gm, 1 Refills, Maintenance, 06/18/2314:05:00 EDT, Cream, [facility] #[id number], Partial fill upon patient request if the prescription is for a schedule II opioid drug., 1 applicatio... Start Date: 06/18/22 Status: Ordered docusate sodium 100 mg oral capsule 100 mg, 1, capsule, By Mouth, 2 times a day, PRN, # 60 capsule, Refills 3, Tot. Refills 3, Maintenance, for constipation, 01/26/22 14:13:00 EST, Route to Pharmacy Electronically, [facility][id number], Partial fill upon patient request if the pr... Start Date: 01/26/22 Status: Ordered Eucerin Eczema Relief topical cream 1 application, Topically, 2 times a day, # 240 Gm, 5 Refills, Maintenance, 01/15/21 16:05:00 EDT, [facility] #[id number], Partial fill upon patient request if the prescription is for a schedule II opioid drug., 1 application Topically 2 times a d... Start Date: 01/15/21 Status: Ordered guaiFENesin 400 mg oral tablet 1 tablet = 400 mg, By Mouth, Every 4 hours, PRN as needed for congestion and cough, # 30 tablet, 1 Refills, Maintenance, 08/27/21 13:40:00 EDT, Tablet, [facility] #[id number], Partial fill upon patient request if the [...] 2 Refills, Maintenance, 08/17/21 13:14:00 EDT, Syrup, [facility] #[id number], 15 mL By Mouth Daily,PRN:as needed for [...] tablet, 5 Refills, Maintenance, 08/26/22 16:54:00 EDT, [facility][id number], Partial fill upon patient request if the prescription is for a schedule II opioid drug., 160, cm, 06/18/22 14:... Start Date: 08/26/22 Status: Ordered levothyroxine 75 mcg (0.075 mg) oral tablet 1 tablet = 75 mcg, By Mouth, Daily, TK 1 T PO D, # 90 tablet, 1 Refills, Maintenance, 04/21/22 9:43:00 EST, Tablet, [facility] #[id number], Partial fill upon patient request if the prescription is for a schedule II opioid drug., 160, cm, ... Start Date: 04/21/22 Status: Ordered lidocaine 4% mucous membrane solution 1 application, Topically, 2 times a day, PRN Pain , Mild, # 1 each, 0 Refills, Maintenance, 05/22/20 16:43:00 EST, [facility] #[id number], Partial fill upon patient request if the prescription is for a schedule II opioid drug., 1 application Topi... Start Date: 05/22/20 Status: Ordered midodrine 5 mg oral tablet 1, tablet, By Mouth, 3 times a day, # 90 tablet, Refills 3, Tot. Refills 3, Maintenance, 10/27/21 15:24:00 EDT, Route to Pharmacy Electronically, [facility] #[id number], 160, cm, 08/27/21 13:11:00 EDT, Height, 57.86, kg, 04/12/20 23:44:00 EST, Start Date: 10/27/21 Status: Ordered Nutritional Supplements See Instructions, # 90 each, Refills 11, Tot. 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 [id number], G31.83, 07/09/22 17:02:00 EDT, Supply Start Date: 07/09/22 Status: Ordered omeprazole 40 mg oral enteric coated capsule 1 capsule, By Mouth, Daily, # 90 capsule, 1 Refills, 09/15/22 16:21:00 EDT, [facility] #[id number], 160, cm, 06/18/22 14:50:00 EDT, Height Start [...] 05/03/22 11:14:00 EST, Route to Pharmacy Electronically, [facility] #[id number], 160, cm, 04/19/22 17:27:00 EST, Height Start Date: 05/03/22 Status: Ordered Urinal See Instructions, # 3 each, Refills 0, Tot. Refills 0, Maintenance, Use as needed for urinating. 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 Z74.01, G31.83, 05/22/20 17:15:00 EST, Supply Start Date: 05/22/20 Status: Ordered Washable Legal Word Processor Bed Pads Washable Legal Word Processor Bed Pads, See Instructions, # 4 each, [...] Pre-syncope Confirmed Active Orthostatic hypotension Confirmed Active *[id number] Outdoor Power Equipment Mechanic Yi Campos Confirmed Active Pain of right sacroiliac joint Confirmed Active Seizures Confirmed Active Lewy body dementia Confirmed Active Tinea cruris Confirmed Active Unintentional weight loss Confirmed Active Urinary incontinence Confirmed Active Vitamin D deficiency Confirmed Active Social History Social History Type Response Smoking Status Former smoker entered on: 08/26/15 Sex Patient Care team information Care Team Personnel Name: Matilde Mahmood RN Position: [facility] RN Member Role: Primary Care Nurse Name: Roberta Felipe NP Position: [facility] PCO Associate Professional Member Role: PCP Address: Address: [address] [place] [address]- Name: Maci Kruse RN Position: [facility] SN RN Member Role: Primary Care Nurse Name: Lyudmila Ortez RN Position: [facility] RN Member Role: Primary Care Nurse Name: Lilo Maldonado RN Position: [facility] RN Member Role: Primary Care Nurse Name: Anuj Murillo RN Position: [facility] RN Member Role: Primary Care Nurse Name: Jasmin Olvia Position: [facility] Outreach Member Role: Lifetime Consulting Physician Name: Suzanne Celeste RN Position: [facility] RN Member Role: Primary Care Nurse Name: Lily Solis RN Position: [facility] Onco RN Member Role: Primary Care Nurse Name: Adela Tadeo RN Position: [facility] RN Member Role: Primary Care Nurse Name: Nancy Morrow RN Position: [facility] RN Member Role: Primary Care Nurse Name: Etta Dewitt RN Position: [facility] RN Member Role: Primary Care Nurse Care Team Related Persons Name: JESSIKA HEARD Address: [address] [address] Name: JESSICA JOSUE Address: [address] [place] [address] Name: CARLOS CEJA Address: [address] [address]
--- OUTSIDE RECORDS SUMMARY | 2022-10-25 20:04 | XMS_ITS | Continuity of Care Document ---
Author Name Unknown Organization [facility] Address [address] [place] [address]- Care Team Providers Care Forestry Worker Name Role Phone Destinee JIMENEZ, Roberta Merida Primary Care Physician Encounter [facility] Date(s): 01/26/22 - 02/25/[address] [address]- Allergies, Adverse Reactions, Alerts Substance Reaction Severity Status penicillin rash Active Immunizations Given and Recorded Vaccine Date Status Refusal Reason SARS-CoV-2 mRNA (vplpeyw-amwy-eohlv) vax 06/19/21 Given influenza virus vaccine, inactivated [...] 09/13/11 3Result Comment: Administered by Dalia Olguin BOWLING OR SKATING FRONT DESK CLERK 4Admin Note: VIS dated 12/17/08 5Admin Note: VIS dated 04/03/11 Medications Artificial Tears preserved solution 1 drops, Eyes, Both, 4 times a day, PRN Dry Eyes, # 10 mL, 11 Refills, Maintenance, 01/26/22 14:13:00 EST, Ophth Solution, [facility] #[id number], Partial fill upon patient request if the [...] tablet, 5 Refills, Maintenance, 10/26/21 14:08:00 EDT, [facility] #[id number], Please print in croatian, 160, cm, 08/27/21 [...] 01/26/22 14:13:00 EST, Route to Pharmacy Electronically, [facility]73209, Partial fill upon patient request if the pr... Start Date: 01/26/22 Status: Ordered Eucerin Eczema Relief topical cream 1 application, Topically, 2 times a day, # 240 Gm, 5 Refills, Maintenance, 01/15/21 16:05:00 EDT, [facility] #[id number], Partial fill upon patient request if the prescription is for a schedule II opioid drug., 1 application Topically 2 times a d... Start Date: 01/15/21 Status: Ordered guaiFENesin 400 mg oral tablet 1 tablet = 400 mg, By Mouth, Every 4 hours, PRN as needed for congestion and cough, # 30 tablet, 1 Refills, Maintenance, 08/27/21 13:40:00 EDT, Tablet, [facility] #25279, Partial fill upon patient request if the [...] 2 Refills, Maintenance, 08/17/21 13:14:00 EDT, Syrup, [facility] #[id number], 15 mL By Mouth Daily,PRN:as needed for [...] 5 Refills, Maintenance, 10/26/21 14:08:00 EDT, Tablet, [facility] #[id number], Partial fill upon patient request if the prescription is for a schedule II opioid drug., 160, cm, 08/27/21 13:... Start Date: 10/26/21 Status: Ordered levothyroxine 75 mcg (0.075 mg) oral tablet 1 tablet = 75 mcg, By Mouth, Daily, TK 1 T PO D, # 90 tablet, 1 Refills, Maintenance, 11/23/21 16:42:00 EDT, [facility] #[id number], Partial fill upon patient request if the prescriptionis for a schedule II opioid drug., 160, cm, ... Start Date: 11/23/21 Status: Ordered lidocaine 4% mucous membrane solution 1 application, Topically, 2 times a day, PRN Pain , Mild, # 1 each, 0 Refills, Maintenance, 05/22/20 16:43:00 EST, [facility] #[id number], Partial fill upon patient request if the prescription is for a schedule II opioid drug., 1 application Topi... Start Date: 05/22/20 Status: Ordered midodrine 5 mg oral tablet 1, tablet, By Mouth, 3 times a day, # 90 tablet, Refills 3, Tot. Refills 3, Maintenance, 10/27/21 15:24:00 EDT, Route to Pharmacy Electronically, [facility] #[id number], 160, cm, 08/27/21 13:11:00 EDT, Height, 57.86, [...] 90 capsule, 1 Refills, 11/23/21 16:42:00 EDT, [facility] #[id number], 160, cm, 08/27/21 13:11:00 EDT, Height, 57.86, kg, 04/12/20 23:44:00 EST, Dry Weight Start Date: 11/23/21 Status: Ordered traZODone 50 mg oral tablet 2, tablet, By Mouth, Daily at bedtime, # 60 tablet, Refills 2, Route to Pharmacy Electronically, [facility] #[id number], 160, cm, 11/04/20 11:39:00 EDT, Height, 57.86, [...] Pre-syncope Confirmed Active Orthostatic hypotension Confirmed Active *[id number] Slat Basket Maker Helper Machine Juliette Rand Confirmed Active Pain of right sacroiliac joint Confirmed Active Seizures Confirmed Active Lewy body dementia Confirmed Active Tinea cruris Confirmed Active Unintentional weight loss Confirmed Active Urinary incontinence Confirmed Active Vitamin D deficiency Confirmed Active Social History Social History Type Response Smoking Status Former smoker entered on: 08/26/15 Sex Patient Care team information Care Team Personnel Name: Matilde Mahmood RN Position: [facility] RN Member Role: Primary Care Nurse Name: Roberta Felipe NP Position: [facility] PCO Associate Professional Member Role: PCP Address: Address: [address] [place] [address] Name: ALESSANDRO VILLATORO RN Position: [facility] RN Member Role: Primary Care Nurse Name: Lilo Maldonado RN Position: [facility] RN Member Role: Primary Care Nurse Name: Anuj Murillo RN Position: [facility] RN Member Role: Primary Care Nurse Name: Jasmin Oliva Position: [facility] Outreach Member Role: Lifetime Consulting Physician Name: Suzanne Celeste RN Position: [facility] RN Member Role: Primary Care Nurse Name: Lily Solis RN Position: [facility] Onco RN Member Role: Primary Care Nurse Name: Adela Tadeo RN Position: [facility] RN Member Role: Primary Care Nurse Name: Maci Jones RN Position: [facility] RN Member Role: Primary Care Nurse Name: Nancy Morrow RN Position: [facility] RN Member Role: Primary Care Nurse Name: Etta Dewitt RN Position: [facility] RN Member Role: Primary Care Nurse Care Team Related Persons Name: JESSIKA HEARD Address: home [address] [place] [address] Name: JESSICA JOSUE Address: home [address] [place] [address] Name: CARLOS CEJA Address: home [address] [place] [address]
--- OUTSIDE RECORDS SUMMARY | 2022-10-25 20:04 | XMS_ITS | Continuity of Care Document ---
Author Name Unknown Organization [facility] Address [address] [facility], [address] Floor, [address] [place] [address]- Care Team Providers Care Guest Services Ambassador Name Role Phone Destinee JIMENEZ, Roberta Merida Primary Care Physician [phone] Encounter [facility] Date(s): 08/26/22 - 09/25/22 [facility] [address], [address], [address] [place] [id number] Allergies, Adverse Reactions, Alerts Substance Reaction Severity Status penicillin rash Active Immunizations Given and Recorded Vaccine Date Status Refusal Reason [id number] 12y+ bivalent booster vax 03/05/22 Given influenza [...] inactivated 2 05/31/12 Gi davonte SARS-CoV-2 mRNA (gfivcmy-kowm-ssdtb) vax 06/19/21 Given SARS-CoV-2 (COVID-19) mRNA BNT-162b2 vac 05/17/20 Given SARS-CoV-2 (COVID-19) mRNA BNT-162b2 vac 3 04/26/20 Given pneumococcal 13-valent vaccine 08/31/16 Given pneumococcal 23-valent vaccine 4 05/31/12 Given tetanus/diphtheria/pertussis, acel(Tdap) 5 05/31/12 Given 1Result Comment: incorrect brand entered 2Admin Note: VIS dated 09/13/11 3Result Comment: Administered by Dalia Olguin VENDOR MANAGEMENT CONSULTANT 4Admin Note: VIS dated 12/17/08 5Admin Note: VIS dated 04/03/11 Medications Artificial Tears preserved solution 1 drops, Eyes, Both, 4 times a day, PRN Dry Eyes, # 10 mL, 11 Refills, Maintenance, 01/26/22 14:13:00 EST, Ophth Solution, [facility] #[id number], Partial fill upon patient request if the [...] tablet, 5 Refills, Maintenance, 08/26/22 16:55:00 EDT, [facility] #[id number], Please print in romansh, 160, cm, 06/18/22 14:50:00 EDT, Height Start [...] Gm, 1 Refills, Maintenance, 06/18/2314:05:00 EDT, Cream, [facility] #[id number], Partial fill upon patient request if the prescription is for a schedule II opioid drug., 1 applicatio... Start Date: 06/18/22 Status: Ordered docusate sodium 100 mg oral capsule 100 mg, 1, capsule, By Mouth, 2 times a day, PRN, # 60 capsule, Refills 3, Tot. Refills 3, Maintenance, for constipation, 01/26/22 14:13:00 EST, Route to Pharmacy Electronically, [facility]#[id number], Partial fill upon patient request if the pr... Start Date: 01/26/22 Status: Ordered Eucerin Eczema Relief topical cream 1 application, Topically, 2 times a day, # 240 Gm, 5 Refills, Maintenance, 01/15/21 16:05:00 EDT, [facility] #[id number], Partial fill upon patient request if the prescription is for a schedule II opioid drug., 1 application Topically 2 times a d... Start Date: 01/15/21 Status: Ordered guaiFENesin 400 mg oral tablet 1 tablet = 400 mg, By Mouth, Every 4 hours, PRN as needed for congestion and cough, # 30 tablet, 1 Refills, Maintenance, 08/27/21 13:40:00 EDT, Tablet, [facility] #[id number], Partial fill upon patient request if the [...] 2 Refills, Maintenance, 08/17/21 13:14:00 EDT, Syrup, [facility] #[id number], 15 mL By Mouth Daily,PRN:as needed for [...] tablet, 5 Refills, Maintenance, 08/26/22 16:54:00 EDT, [facility][id number], Partial fill upon patient request if the prescription is for a schedule II opioid drug., 160, cm, 06/18/22 14:... Start Date: 08/26/22 Status: Ordered levothyroxine 75 mcg (0.075 mg) oral tablet 1 tablet = 75 mcg, By Mouth, Daily, TK 1 T PO D, # 90 tablet, 1 Refills, Maintenance, 04/21/22 9:43:00 EST, Tablet, [facility] #[id number], Partial fill upon patient request if the prescription is for a schedule II opioid drug., 160, cm, ... Start Date: 04/21/22 Status: Ordered lidocaine 4% mucous membrane solution 1 application, Topically, 2 times a day, PRN Pain , Mild, # 1 each, 0 Refills, Maintenance, 05/22/20 16:43:00 EST, [facility] #[id number], Partial fill upon patient request if the prescription is for a schedule II opioid drug., 1 application Topi... Start Date: 05/22/20 Status: Ordered midodrine 5 mg oral tablet 1, tablet, By Mouth, 3 times a day, # 90 tablet, Refills 3, Tot. Refills 3, Maintenance, 10/27/21 15:24:00 EDT, Route to Pharmacy Electronically, [facility] #[id number], 160, cm, 08/27/21 13:11:00 EDT, Height, 57.86, kg, 04/12/20 23:44:00 ESTDr... Start Date: 10/27/21 Status: Ordered Nutritional Supplements See Instructions, # 90 each, Refills 11, Tot. 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 [id number], G31.83, 07/09/22 17:02:00 EDT, Supply Start Date: 07/09/22 Status: Ordered omeprazole 40 mg oral enteric coated capsule 1 capsule, By Mouth, Daily, # 90 capsule, 1 Refills, 09/15/22 16:21:00 EDT, [facility] #[id number], 160, cm, 06/18/22 14:50:00 EDT, Height Start [...] 05/03/22 11:14:00 EST, Route to Pharmacy Electronically, [facility] #[id number], 160, cm, 04/19/22 17:27:00 EST, Height Start Date: 05/03/22 Status: Ordered Urinal See Instructions, # 3 each, Refills 0, Tot. Refills 0, Maintenance, Use as needed for urinating. 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 Z74.01, G31.83, 05/22/20 17:15:00 EST, Supply Start Date: 05/22/20 Status: Ordered Washable Power Generation Technician Bed Pads Washable Power Generation Technician Bed Pads, See Instructions, # 4 each, [...] Pre-syncope Confirmed Active Orthostatic hypotension Confirmed Active *[id number] Director Dermatology Yi Campos Confirmed Active Pain of right [...] Name: Matilde Mahmood RN Position: [facility] RN Member Role: Primary Care Nurse Name: Roberta Felipe NP Position: [facility] PCO Associate Professional Member Role: PCP Address: Address: [address] [place] [address]- Name: Maci Kruse RN Position: [facility] SN RN Member Role: Primary Care Nurse Name: Lyudmila Ortez RN Position: [facility] RN Member Role: Primary Care Nurse Name: Lilo Maldonado RN Position: [facility] RN Member Role: Primary Care Nurse Name: Anuj Murillo RN Position: [facility] RN Member Role: Primary Care Nurse Name: Jasmin Oliva Position: [facility] Outreach Member Role: Lifetime Consulting Physician Name: Suzanne Celeste RN Position: [facility] RN Member Role: Primary Care Nurse Name: Lily Solis RN Position: [facility] Onco RN Member Role: Primary Care Nurse Name: Adela Tadeo RN Position: [facility] RN Member Role: Primary Care Nurse Name: Nancy Morrow RN Position: [facility] RN Member Role: Primary Care Nurse Name: Etta Dewitt RN Position: [facility] RN Member Role: Primary Care Nurse Care Team Related Persons Name: JESSIKA HEARD Address: [address] [address] Name: JESSICA JOSUE Address: home [address] [place] [address] Name: CARLOS CEJA Address: [address] [address]
--- OUTSIDE RECORDS SUMMARY | 2022-10-25 20:04 | XMS_ITS | Continuity of Care Document ---
Author Name Unknown Organization [facility] Address [address] [place] [address]- Care Team Providers Care Nascar Driver Name Role Phone Roberta Felipe NP Primary Care Physician [phone] Encounter [facility] Date(s): 11/25/20 - 12/25/[address] [address] Allergies, Adverse Reactions, Alerts Substance [...] Given 1Result Comment: Administered by Dalia Olguin SONOGRAPHER 2Result Comment: incorrect brand entered 3Admin Note: VIS dated 09/13/11 4Admin Note: VIS dated 12/17/08 5Admin Note: VIS dated 04/03/11 Medications Artificial Tears preserved solution 1 drops, Eyes, Both, 4 times a day, PRN Dry Eyes, # 10 mL, 11 Refills, Maintenance, 11/06/20 13:04:00 EDT, Ophth Solution, [facility] #[id number], Partial fill upon patient request if the [...] tablet, 5 Refills, Maintenance, 11/20/20 11:43:00 EDT, [facility] #[id number], Please print in austrian, 160, cm, 11/04/20 11:39:00 EDT, Height, 57.86, [...] 2 Refills, Maintenance, 11/06/20 13:03:00 EDT, Syrup, [facility] #[id number], Partial fill upon patient request if the [...] 6 Refills, Maintenance, 11/20/20 11:42:00 EDT, Tablet, [facility] #00875, Partial fill upon patient request if the prescription is for a schedule II opioid drug., 160, cm, 11/04/20 11:... Start Date: 11/20/20 Stop Date: 06/18/21 Status: Ordered levothyroxine 75 mcg (0.075 mg) oral tablet 1 tablet = 75 mcg, By Mouth, Daily, TK 1 T PO D, # 90 tablet, 1 Refills, Maintenance, 09/16/20 14:56:00 EDT, Tablet, [facility] #[id number], Partial fill upon patient request if the prescriptionis for a schedule II opioid drug., 160, cm, ... Start Date: 09/16/20 Stop Date: 01/14/21 Status: Ordered lidocaine 4% mucous membrane solution 1 application, Topically, 2 times a day, PRN Pain , Mild, # 1 each, 0 Refills, Maintenance, 05/22/20 16:43:00 EST, [facility] #[id number], Partial fill upon patient request if the prescription is for a schedule II opioid drug., 1 application Topi... Start Date: 05/22/20 Status: Ordered midodrine 5 mg oral tablet 1, tablet, By Mouth, 3 times a day, # 90 tablet, Refills 3, Tot. Refills 0, Maintenance, 10/22/20 13:38:00 EDT, Route to Pharmacy Electronically, [facility] #[id number], 160, cm, 09/26/20 14:49:00 EDT, Height, 57.86, [...] Mouth, Daily, # 90 capsule, 0 Refills, [facility] #07154, 160, cm, 11/04/2110:39:00 EDT, Height, 57.86, kg, 04/12/20 23:44:00 EST, Dry Weight Start Date: 11/27/20 Status: Ordered traZODone 50 mg oral tablet 2, tablet, By Mouth, Daily at bedtime, # 60 tablet, Refills 2, Route to Pharmacy Electronically, [facility] #[id number], 160, cm, 11/04/20 11:39:00 EDT, Height, 57.86, [...] Myalgia(Confirmed) Active Pre-syncope(Confirmed) Active Orthostatic hypotension(Confirmed) Active *[id number] Care Partn er Tracy Hurst(Confirmed) Active Pain of right sacroiliac joint(Confirmed) Active Lewy body dementia(Confirmed) Active Tinea cruris(Confirmed) Active Unintentional weight loss(Confirmed) Active Urinary incontinence(Confirmed) Active Vitamin D deficiency(Confirmed) Active Social History Social History Type Response Smoking Status Former smoker entered on: 08/26/15 Sex
--- OUTSIDE RECORDS SUMMARY | 2022-10-25 20:04 | XMS_ITS | Continuity of Care Document ---
Author Name Unknown Organization [facility] Address [address] [place] [id number]- Care Team Providers Care Extruding Press Adjuster Name Role Phone Roberta Felipe NP Primary Care Physician Encounter [facility] Date(s): 05/19/20 - 06/18/[address] [address]- Allergies, Adverse Reactions, Alerts Substance Reaction Severity [...] 3 Refills, Maintenance, 05/19/20 14:56:00 EST, Tablet, [facility] #[id number], Partial fill upon patient request if the prescriptionis for a schedule II opioid drug., 160, cm, ... Start Date: 05/19/20 Stop Date: 09/16/20 Status: Ordered lidocaine 4% mucous membrane solution 1 application, Topically, 2 times a day, PRN Pain , Mild, # 1 each, 0 Refills, Maintenance, 05/22/20 16:43:00 EST, [facility] #[id number], Partial fill upon patient request if the [...] capsule, 0 Refills, Maintenance, 04/16/20 14:22:00 EST, [facility] #[id number], 160, cm, 04/16/20 8:39:00 EST, Height, 57.86, [...] each, 11 Refills, Maintenance, 06/03/20 14:11:00 EDT, [facility] #[id number], Partial fill upon patient request if the [...] Myalgia(Confirmed) Active Pre-syncope(Confirmed) Active Orthostatic hypotension(Confirmed) Active *[id number] Care Partn er Tracy Hurst(Confirmed) Active Pain of right sacroiliac joint(Confirmed) Active Lewy body dementia(Confirmed) Active Tinea cruris(Confirmed) Active Unintentional weight loss(Confirmed) Active Urinary incontinence(Confirmed) Active Vitamin D deficiency(Confirmed) Active Social History Social History Type Response Smoking Status Former smoker entered on: 08/26/15 Sex
--- OUTSIDE RECORDS SUMMARY | 2022-10-25 20:04 | XMS_ITS | Continuity of Care Document ---
Author Name Unknown Organization [facility] Address [address] [place] [phone]- Care Team Providers Care Section Leader And Machine Setter Name Role Phone Roberta Felipe NP Primary Care Physician [phone] Encounter [facility] Date(s): 02/22/20 - 03/27/[address] [address]- Attending Physician: Naya Fermin MD Admitting Physician: [...] mL, 11 Refills, Maintenance, 10/03/19 11:19:00 EDT, [facility] #[id number], 1 drops Eyes, Both 3 times a [...] mL, 3 Refills, Maintenance, 10/04/19 11:21:00 EDT, [facility] #[id number], 30, 15 mL By Mouth Daily,PRN: NEEDED FOR CONSTIPATION, 160, cm, 03/22/19 15:22:00 EST, Height Start Date: 10/04/19 Status: Ordered levothyroxine 75 mcg (0.075 mg) oral tablet 1 tablet = 75 mcg, By Mouth, Daily, increase in dose, # 90 tablet, 1 Refills, Maintenance, 11/07/2009:50:00 EDT, Tablet, [facility] #[id number], 160, cm, 03/22/19 15:22:00 EST, Height Start Date: 11/08/19 Stop Date: 11/02/20 Status: Ordered midodrine 10 mg oral tablet 0.5 tablet = 5 mg, By Mouth, 3 times a day, # 45 tablet, 5 Refills, Maintenance, 03/27/20 10:17:00 EST, Tablet, [facility] #[id number], Partial fill upon patient request if the prescription is for a schedule II opioid drug., 160, cm, 03/13/20 8:2... Start Date: 03/27/20 Stop Date: 09/23/20 Status: Ordered omeprazole 40 mg oral enteric coated capsule 1 capsule, By Mouth, Daily, # 90 capsule, 1 Refills, Maintenance, 11/23/19 15:26:00 EDT, [facility] #[id number], 160, cm, 03/22/19 15:22:00 EST, Height Start [...] Maintenance,03/27/20 10:16:00 EST, Route to Pharmacy Electronically, [facility] #[id number], Partial fill upon patient request if the prescription is for a sc... Start Date: 03/27/20 Stop Date: 07/25/20 Status: Ordered warfarin 2.5 mg oral tablet 1 tablet, By Mouth, Daily, DIRECTED BY NURSE BASED ON INR RESULTS., # 30 tablet, 11 Refills, Maintenance, 09/18/19 16:11:00 EDT, [facility] #[id number], 160, cm, 03/22/19 15:22:00 EST, Height Start [...] Myalgia(Confirmed) Active Pre-syncope(Confirmed) Active Orthostatic hypotension(Confirmed) Active *[id number] Care Partn er Tracy Natali(Confirmed) Active Pain of right sacroiliac joint(Confirmed) Active Lewy body dementia(Confirmed) Active Tinea cruris(Confirmed) Active Unintentional weight loss(Confirmed) Active Urinary incontinence(Confirmed) Active Vitamin D deficiency(Confirmed) Active Social History Social History Type Response Smoking Status Former smoker entered on: 08/26/15 Sex
--- OUTSIDE RECORDS SUMMARY | 2022-10-25 20:04 | XMS_ITS | Continuity of Care Document ---
Author Name Unknown Organization [facility] Address [address] [place] [address]- Care Team Providers Care Quality Control Analyst Name Role Phone Destinee JIMENEZ, Roberta Merida Primary Care Physician Encounter [facility] Date(s): 05/10/22 - 06/09/[address] [address]- Allergies, Adverse Reactions, Alerts Substance Reaction Severity Status penicillin rash Active Immunizations Given and Recorded Vaccine Date Status Refusal Reason [id number] 12y+ bivalent booster vax 03/05/22 Given influenza [...] inactivated 2 05/31/12 [facility] SARS-CoV-2 mRNA (aiopgyc-muhe-gfxnd) vax 06/19/21 Given SARS-CoV-2 (COVID-19) mRNA BNT-162b2 vac 05/17/20 Given SARS-CoV-2 (COVID-19) mRNA BNT-162b2 vac 3 04/26/20 Given pneumococcal 13-valent vaccine 08/31/16 Given pneumococcal 23-valent vaccine 4 05/31/12 Given tetanus/diphtheria/pertussis, acel(Tdap) 5 05/31/12 Given 1Result Comment: incorrect brand entered 2Admin Note: VIS dated 09/13/11 3Result Comment: Administered by Dalia Olguin SHEEP BONER 4Admin Note: VIS dated 12/17/08 5Admin Note: VIS dated 04/03/11 Medications Artificial Tears preserved solution 1 drops, Eyes, Both, 4 times a day, PRN Dry Eyes, # 10 mL, 11 Refills, Maintenance, 01/26/22 14:13:00 EST, Ophth Solution, [facility] #[id number], Partial fill upon patient request if the [...] tablet, 5 Refills, Maintenance, 10/26/21 14:08:00 EDT, [facility] #[id number], Please print in indian, 160, cm, 08/27/21 13:11:00 EDT, Height, 57.86, [...] 01/26/22 14:13:00 EST, Route to Pharmacy Electronically, [facility]#51214, Partial fill upon patient request if the pr... Start Date: 01/26/22 Status: Ordered Eucerin Eczema Relief topical cream 1 application, Topically, 2 times a day, # 240 Gm, 5 Refills, Maintenance, 01/15/21 16:05:00 EDT, [facility] #[id number], Partial fill upon patient request if the prescription is for a schedule II opioid drug., 1 application Topically 2 times a d... Start Date: 01/15/21 Status: Ordered guaiFENesin 400 mg oral tablet 1 tablet = 400 mg, By Mouth, Every 4 hours, PRN as needed for congestion and cough, # 30 tablet, 1 Refills, Maintenance, 08/27/21 13:40:00 EDT, Tablet, [facility] #[id number], Partial fill upon patient request if the [...] 2 Refills, Maintenance, 08/17/21 13:14:00 EDT, Syrup, [facility] #99692, 15 mL By Mouth Daily,PRN:as needed for [...] 5 Refills, Maintenance, 10/26/21 14:08:00 EDT, Tablet, [facility] #05683, Partial fill upon patient request if the prescription is for a schedule II opioid drug., 160, cm, 08/27/21 13:... Start Date: 10/26/21 Status: Ordered levothyroxine 75 mcg (0.075 mg) oral tablet 1 tablet = 75 mcg, By Mouth, Daily, TK 1 T PO D, # 90 tablet, 1 Refills, Maintenance, 04/21/22 9:43:00 EST, Tablet, [facility] #[id number], Partial fill upon patient request if the prescription is for a schedule II opioid drug., 160, cm, ... Start Date: 04/21/22 Status: Ordered lidocaine 4% mucous membrane solution 1 application, Topically, 2 times a day, PRN Pain , Mild, # 1 each, 0 Refills, Maintenance, 05/22/20 16:43:00 EST, [facility] #[id number], Partial fill upon patient request if the prescription is for a schedule II opioid drug., 1 application Topi... Start Date: 05/22/20 Status: Ordered midodrine 5 mg oral tablet 1, tablet, By Mouth, 3 times a day, # 90 tablet, Refills 3, Tot. Refills 3, Maintenance, 10/27/21 15:24:00 EDT, Route to Pharmacy Electronically, [facility] #[id number], 160, cm, 08/27/21 13:11:00 EDT, Height, 57.86, [...] 90 capsule, 1 Refills, 11/23/21 16:42:00 EDT, [facility] #[id number], 160, cm, 08/27/21 13:11:00 EDT, Height, 57.86, [...] 05/03/22 11:14:00 EST, Route to Pharmacy Electronically, [facility] #[id number], 160, cm, 04/19/22 17:27:00 EST, Height Start Date: 05/03/22 Status: Ordered Urinal See Instructions, # 3 each, Refills 0, Tot. Refills 0, Maintenance, Use as needed for urinating. 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 Pain of right [...] Name: Matilde Mahmood RN Position: [facility] RN Member Role: Primary Care Nurse Name: Roberta Felipe NP Position: [facility] PCO Associate Professional Member Role: PCP Address: Address: [address] [place] [address]- [place] Name: ALESSANDRO VILLATORO RN Position: S RN Member Role: Primary Care Nurse Name: Lilo Maldonado RN Position: [facility] RN Member Role: Primary Care Nurse Name: Anuj Murillo RN Position: [facility] RN Member Role: Primary Care Nurse Name: Jasmin Oliva Position: [facility] Outreach Member Role: Lifetime Consulting Physician Name: Suzanne Celeste RN Position: [facility] RN Member Role: Primary Care Nurse Name: Lily Solis RN Position: [facility] Onco RN Member Role: Primary Care Nurse Name: Adela Tadeo RN Position: [facility] RN Member Role: Primary Care Nurse Name: Maci Jones RN Position: [facility] RN Member Role: Primary Care Nurse Name: Nancy Morrow RN Position: [facility] RN Member Role: Primary Care Nurse Name: Etta Dewitt RN Position: [facility] RN Member Role: Primary Care Nurse Care Team Related Persons Name: JESSIKA HEARD Address: home [address] [place] [id number] Name: JESSICA JOSUE Address: home [address] [place] [id number] Name: CARLOS CEJA Address: home [address] [place] [address]
--- OUTSIDE RECORDS SUMMARY | 2022-10-25 20:04 | XMS_ITS | Continuity of Care Document ---
Author Name Unknown Organization [facility] Address Unknown Care Team Providers Care Human Resources Leader Name Role Phone Destinee JIMENEZ, Roberta Merida Primary [id number] Attending Physician: Seth Bynum MD Admitting Physician: Seth Bynum MD Allergies, Adverse Reactions, Alerts Substance Reaction [...] Refills, Maintenance, 11/06/20 13:04:00 EDT, Ophth Solution, [facility] #[id number], Partial fill upon patient request if the [...] tablet, 5 Refills, Maintenance, 11/20/20 11:43:00 EDT, [facility] #05807, Please print in cypriot, 160, cm, 11/04/20 11:39:00 EDT, Height, 57.86, [...] Gm, 5 Refills, Maintenance, 01/15/21 16:05:00 EDT, [facility] #17509, Partial fill upon patient request if the [...] 2 Refills, Maintenance, 11/06/20 13:03:00 EDT, Syrup, [facility] #[id number], Partial fill upon patient request if the [...] 3 Refills, Maintenance, 02/20/21 12:51:00 EST, Tablet, [facility] #[id number], Partial fill upon patient request if the prescription is for a schedule II opioid drug., 160, cm, 01/15/21 14:... Start Date: 02/20/21 Status: Ordered levothyroxine 75 mcg (0.075 mg) oral tablet 1 tablet = 75 mcg, By Mouth, Daily, TK 1 T PO D, # 90 tablet, 1 Refills, Maintenance, 02/19/21 13:28:00 EST, [facility] #80061, Partial fill upon patient request if the prescriptionis for a schedule II opioid drug., 160, cm, ... Start Date: 02/19/21 Status: Ordered lidocaine 4% mucous membrane solution 1 application, Topically, 2 times a day, PRN Pain , Mild, # 1 each, 0 Refills, Maintenance, 05/22/20 16:43:00 EST, [facility] #21650, Partial fill upon patient request if the prescription is for a schedule II opioid drug., 1 application Topi... Start Date: 05/22/20 Status: Ordered midodrine 5 mg oral tablet 1, tablet, By Mouth, 3 times a day, # 90 tablet, Refills 3, Tot. Refills 0, Maintenance, 10/22/20 13:38:00 EDT, Route to Pharmacy Electronically, [facility] #[id number], 160, cm, 09/26/20 14:49:00 EDT, Height, 57.86, [...] 90 capsule, 0 Refills, 05/28/21 14:21:00 EDT, [facility] #[id number], 160, cm, 01/15/21 14:39:00 EDT, Height, 57.86, kg, 04/12/20 23:44:00 EST, Dry Weight Start Date: 05/28/21 Status: Ordered traZODone 50 mg oral tablet 2, tablet, By Mouth, Daily at bedtime, # 60 tablet, Refills 2, Route to Pharmacy Electronically, [facility] #[id number], 160, cm, 11/04/20 11:39:00 EDT, Height, 57.86, [...] Myalgia(Confirmed) Active Pre-syncope(Confirmed) Active Orthostatic hypotension(Confirmed) Active *[id number] Care Partn er Tracy Hurst(Confirmed) Active Pain of right sacroiliac joint(Confirmed) Active Lewy body dementia(Confirmed) Active Tinea cruris(Confirmed) Active Unintentional weight loss(Confirmed) Active Urinary incontinence(Confirmed) Active Vitamin D deficiency(Confirmed) Active Social History Social History Type Response Smoking Status Former smoker entered on: 08/26/15 Sex
--- OUTSIDE RECORDS SUMMARY | 2022-10-25 20:04 | XMS_ITS | Continuity of Care Document ---
Author Name Unknown Organization [facility] Address [address] [place] [id number]- Care Team Providers Care Soyfreeze Operator Name Role Phone Destinee JIMENEZ, Roebrta Merida Primary Care Physician Encounter [facility] Date(s): 05/08/20 - 05/16/[address] [address]- Encounter Diagnosis Dementia(Final) - 05/08/20 Chronic kidney disease(Final) - 05/08/20 Skin tear of upper extremity(Final) - 05/08/20 Discharge Disposition: A-Transfer VNA/Home Health Attending Physician: Gabriel Anne MD Admitting Physician: Jose Lees MD Referring Physician: Not on Staff, Referring [...] DRY EYES Start Date: 04/12/20 Status: Ordered Keflex monohydrate 500 mg oral capsule 1 capsule = 500 mg, By Mouth, 3 times a day, for 3 days, To be started from tomorrow 05/17/20., # 9 capsule, 0 Refills, Acute 05/19/20 10:33:00 EST, 05/16/20 10:33:00 EST, Capsule, [facility]#[id number], Partial fill upon patient request if the pr... Start Date: 05/16/20 Stop Date: 05/19/20 Status: Ordered lactulose 10 gm/15 ml oral [...] TIMES DAILY Start Date: 04/12/20 Status: Ordered midodrine 5 mg oral tablet 5 mg, Tablet, By Mouth, 05/16/20 9:00:00 EST Start Date: 05/16/20 Stop Date: 05/16/20 Status: Completed Nutritional Supplements See Instructions, # 90 each, [...] capsule, 0 Refills, Maintenance, 04/16/20 14:22:00 EST, [facility] #[id number], 160, cm, 04/16/20 8:39:00 EST, Height, 57.86, kg, 04/12/20 23:44:00 EST, Dry Weight Start Date: 04/16/20 Status: Ordered traZODone 50 mg oral tablet TAKE 2 TABLETS BY MOUTH DAILY AT BEDTIME Start Date: 04/12/20 Status: Ordered warfarin 3 mg oral tablet 1 tablet = 3 mg, By Mouth, Daily, # 30 tablet, 0 Refills, Maintenance, 04/16/20 12:40:00 EST, Tablet, [facility] #[id number], Partial fill upon patient request if the [...] Myalgia(Confirmed) Active Pre-syncope(Confirmed) Active Orthostatic hypotension(Confirmed) Active *[id number] Care Partn er Tracy Hurst(Confirmed) Active Pain of right sacroiliac joint(Confirmed) Active Lewy body dementia(Confirmed) Active Tinea cruris(Confirmed) Active Unintentional weight loss(Confirmed) Active Urinary incontinence(Confirmed) Active Vitamin D deficiency(Confirmed) Active Results Orders for Microbiology Reports Name Date Urine Culture (URINE CULTURE) 05/14/20 Blood Culture 05/14/20 Blood Culture #2 05/14/20 Microbiology Reports TEST:Urine Culture STATUS:Unauthenticated BODY SITE: SOURCE:URINE COLLECTED DATE/TIME:05/14/20 4:25 PM Urine Culture SPECIMEN DESCRIPTION : URINE SPECIAL REQUESTS : NONE Reflexed from [id number] CULTURE : >100,000 COL/ML GRAM NEGATIVE RODS REPORT STATUS : PRELIMINARY REPORT TEST:Blood Culture, Second Order STATUS:Unauthenticated BODY SITE: SOURCE:Blood COLLECTED DATE/TIME:05/14/20 11:34 AM Blood Culture, Second Order SPECIMEN DESCRIPTION : BLOOD RHAND SPECIAL REQUESTS : NONE CULTURE : NO GROWTH AFTER 48 HOURS REPORT STATUS : PRELIMINARY REPORT TEST:Blood Culture STATUS:Unauthenticated BODY SITE: SOURCE:Blood COLLECTED DATE/TIME:05/14/20 10:01 AM Blood Culture SPECIMEN DESCRIPTION : BLOOD RT SPECIAL REQUESTS : NONE CULTURE : NO GROWTH AFTER 48 HOURS REPORT STATUS : PRELIMINARY REPORT Radiology Reports * Exam Date Time Procedure Performing Provider Status 05/14/20 10:57 AM Chest Portable Mickie Mello; Ailyn (Verified) Notes: (Chest Portable) Reason For Exam: Shortness of Breath RESULT: Chest Portable Chest Portable HISTORY: Shortness of breath. COMPARISON: 04/12/2020. FINDINGS: LINES AND TUBES: None. LUNGS AND PLEURA: Low lung volumes and bibasilar atelectasis, left greater than. HEART, MEDIASTINUM AND VICKIE: Heart is normal in size. Apparent pulmonary vessels and main pulmonary trunk. BONES AND SOFT TISSUES: No acute abnormality. IMPRESSION: Apparent enlargement of the central vasculature, which may be technical and due to low lung volumes. A component of central vascular engorgement is not excluded. Bibasilar opacities left greater than right, likely atelectasis. I have personally reviewed the images and I agree with this report. WSN: [id number] Ordering Physician: Lyubov Hammond Dictated By: Jared Wolff MD Dictated Date/Time: 05/14/20 1:01 pm Reviewed By: Catrachito Alfaro MD Signed By: Catrachito Alfaro MD Signed Date/Time: 05/14/20 1:06 pm Transcribed By: KESHIA Transcribed Date/Time: 05/14/20 11:10 am Vital Signs Most recent to oldest [Reference Range]: 1 2 3 Weight 61.6 kg (05/13/20 12:53 PM) Oxygen Saturation [94-100 %] 100 % (05/16/20 2:00 PM) 98 % (05/16/20 4:47 AM) 99 % (05/15/20 8:41 PM) Pulse Rate [55-90 bpm] 74 bpm (05/16/20 2:00 PM) 72 bpm (05/16/20 11:42 AM) 73 bpm (05/16/20 4:47 AM) Blood Pressure [90-138/55-84 mm Hg] 116/67mm Hg (05/16/20 2:00 PM) 119/60mm Hg (05/16/20 11:42 AM) 115/54mm Hg (05/16/20 4:47 AM) Respiratory Rate [16-30 br/min] 19 br/min (05/16/20 2:00 PM) 16 br/min (05/16/20 4:47 AM) 18 br/min (05/15/20 8:41 PM) Temperature [96.8-100.4 DegF] 98.2 DegF (05/16/20 2:00 PM) 97.5 DegF (05/15/20 8:41 PM) 97.7 DegF (05/15/20 2:06 PM) Mode of Delivery (Oxygen) Room air (05/16/20 2:00 PM) Room air (05/16/20 4:47 AM) Room air (05/15/20 8:41 PM) Blood pressure sites Arm, left (05/16/20 2:00 PM) Arm, right (05/16/20 4:47 AM) Arm, left (05/15/20 8:41 PM) Temperature Route Axillary (05/16/20 2:00 PM) Oral (05/15/20 8:41 PM) Oral (05/15/20 2:06 PM) Weight Obtained Via Bed scale (05/13/20 12:53 PM) Social History Social History Type Response Smoking Status Former smoker entered on: 08/26/15 Sex
--- OUTSIDE RECORDS SUMMARY | 2022-10-25 20:04 | XMS_ITS | Continuity of Care Document ---
Author Name Unknown Organization [facility] Address [address] [place] [id number]- Care Team Providers Care Sales Consultant Residential Manager Name Role Phone Roberta Felipe NP Primary Care Physician Encounter [facility] Date(s): 09/16/20 - 10/16/[address] [address] Allergies, Adverse Reactions, Alerts Substance Reaction [...] Given 1Result Comment: Administered by Dalia Olguin GLASS SILVERER 2Result Comment: incorrect brand entered 3Admin Note: VIS dated 09/13/11 4Admin Note: VIS dated 12/17/08 5Admin Note: VIS dated 04/03/11 Medications apixaban 2.5 mg oral tablet 1 tablet = 2.5 mg, By Mouth, 2 times a day, Transitioning from warfarin to apixaban, # 60 tablet, 11 Refills, Maintenance, 06/24/20 14:40:00 EDT, Tablet, [facility] #[id number], Partial fill upon patient request if the [...] 2 Refills, Maintenance, 09/29/20 16:10:00 EDT, Tablet, [facility] #[id number], Partial fill upon patient request ifthe prescription is for a schedule II opioid drug.,... Start Date: 09/29/20 Status: Ordered levothyroxine 75 mcg (0.075 mg) oral tablet 1 tablet = 75 mcg, By Mouth, Daily, TK 1 T PO D, # 90 tablet, 1 Refills, Maintenance, 09/16/20 14:56:00 EDT, Tablet, [facility] #[id number], Partial fill upon patient request if the prescriptionis for a schedule II opioid drug., 160, cm, ... Start Date: 09/16/20 Stop Date: 01/14/21 Status: Ordered lidocaine 4% mucous membrane solution 1 application, Topically, 2 times a day, PRN Pain , Mild, # 1 each, 0 Refills, Maintenance, 05/22/20 16:43:00 EST, [facility] #25252, Partial fill upon patient request if the prescription is for a schedule II opioid drug., 1 application Topi... Start Date: 05/22/20 Status: Ordered midodrine 5 mg oral tablet 5 mg, 1, tablet, By Mouth, 3 times a day, lower dose tablet, # 90 tablet, Refills 3, Tot. Refills 3, Maintenance, 06/23/20 14:16:00 EDT, Route to Pharmacy Electronically, [facility] #[id number],Partial fill upon patient request if the prescripti... [...] capsule, 0 Refills, Maintenance, 09/10/20 8:11:00 EDT, [facility] #73004, 160, cm, 08/21/20 12:36:00 EDT, Height, 57.86, kg, 04/12/20 23:44:00 EST, Dry Weight Start Date: 09/10/20 Status: Ordered traZODone 50 mg oral tablet 2, tablet, By Mouth, Daily at bedtime, # 60 tablet, Refills 3, Tot. Refills 0, Maintenance, 07/15/20 10:03:00 EDT, Route to Pharmacy Electronically, [facility] #[id number], 160, cm, 05/21/20 9:12:00 EST, Height, 57.86, [...] Myalgia(Confirmed) Active Pre-syncope(Confirmed) Active Orthostatic hypotension(Confirmed) Active *[id number] Care Partn er Tracy Hurst(Confirmed) Active Pain of right sacroiliac joint(Confirmed) Active Lewy body dementia(Confirmed) Active Tinea cruris(Confirmed) Active Unintentional weight loss(Confirmed) Active Urinary incontinence(Confirmed) Active Vitamin D deficiency(Confirmed) Active Social History Social History Type Response Smoking Status Former smoker entered on: 08/26/15 Sex
--- OUTSIDE RECORDS SUMMARY | 2022-10-25 20:04 | XMS_ITS | Continuity of Care Document ---
Author Name Unknown Organization [facility] Address [address] [place] [address]- Care Team Providers Care Product Technology Scientist Name Role Phone Destinee JIMENEZ, Roberta Merida Primary Care Physician Encounter [facility] Date(s): 01/22/20 - 02/21/[address] [address]- Allergies, Adverse Reactions, Alerts Substance Reaction Severity [...] mL, 11 Refills, Maintenance, 10/03/19 11:19:00 EDT, [facility] #[id number], 1 drops Eyes, Both 3 times a [...] mL, 3 Refills, Maintenance, 10/04/19 11:21:00 EDT, [facility] #[id number], 30, 15 mL By Mouth Daily,PRN: NEEDED FOR CONSTIPATION, 160, cm, 03/22/19 15:22:00 EST, Height Start Date: 10/04/19 Status: Ordered levothyroxine 75 mcg (0.075 mg) oral tablet 1 tablet = 75 mcg, By Mouth, Daily, increase in dose, # 90 tablet, 1 Refills, Maintenance, 11/07/2009:50:00 EDT, Tablet, [facility] #[id number], 160, cm, 03/22/19 15:22:00 EST, Height Start [...] capsule, 1 Refills, Maintenance, 11/23/19 15:26:00 EDT, [facility] #[id number], 160, cm, 03/22/19 15:22:00 EST, Height Start Date: 11/23/19 Status: Ordered SEROquel 25 mg oral tablet 12.5 mg, 0.5, tablet, By Mouth, Daily at bedtime, # 14 tablet, Refills 0, Tot. Refills 0, Maintenance, 02/12/20 10:38:00 EST, Route to Pharmacy Electronically, [facility] #[id number], Partial fill upon patient request, 160, cm, 01/30/20 14:20:00... Start Date: 02/12/20 Status: Ordered warfarin 2.5 mg oral tablet 1 tablet, By Mouth, Daily, DIRECTED BY NURSE BASED ON INR RESULTS., # 30 tablet, 11 Refills, Maintenance, 09/18/19 16:11:00 EDT, [facility] #[id number], 160, cm, 03/22/19 15:22:00 EST, Height Start [...] Myalgia(Confirmed) Active Pre-syncope(Confirmed) Active Orthostatic hypotension(Confirmed) Active *[id number] Care Partn er Tracy Lagosan(Confirmed) Active Pain of right sacroiliac joint(Confirmed) Active Lewy body dementia(Confirmed) Active Tinea cruris(Confirmed) Active Unintentional weight loss(Confirmed) Active Urinary incontinence(Confirmed) Active Vitamin D deficiency(Confirmed) Active Social History Social History Type Response Smoking Status Former smoker entered on: 08/26/15 Sex
--- OUTSIDE RECORDS SUMMARY | 2022-10-25 20:04 | XMS_ITS | Continuity of Care Document ---
Author Name Unknown Organization [facility] Address [address] [place] [address]- Care Team Providers Care Feather Shaper Name Role Phone Destinee JIMENEZ, Roberta Merida Primary Care Physician [phone] Encounter [facility] [place] ACCT R [id number] Date(s): 10/02/20 - 11/29/20 [facility] [address] [place] [address]- Attending Physician: Jaime Velazquez MD Admitting Physician: Jaime Velazquez MD Referring Physician: Roberta Felipe NP Allergies, [...] Refills, Maintenance, 11/06/20 13:04:00 EDT, Ophth Solution, [facility] #[id number], Partial fill upon patient request if the [...] tablet, 5 Refills, Maintenance, 11/20/20 11:43:00 EDT, [facility] #[id number], Please print in greek, 160, cm, 11/04/20 11:39:00 EDT, Height, 57.86, [...] 2 Refills, Maintenance, 11/06/20 13:03:00 EDT, Syrup, [facility] #[id number], Partial fill upon patient request if the [...] 6 Refills, Maintenance, 11/20/20 11:42:00 EDT, Tablet, [facility] #10396, Partial fill upon patient request if the prescription is for a schedule II opioid drug., 160, cm, 11/04/20 11:... Start Date: 11/20/20 Stop Date: 06/18/21 Status: Ordered levothyroxine 75 mcg (0.075 mg) oral tablet 1 tablet = 75 mcg, By Mouth, Daily, TK 1 T PO D, # 90 tablet, 1 Refills, Maintenance, 09/16/20 14:56:00 EDT, Tablet, [facility] #57763, Partial fill upon patient request if the prescriptionis for a schedule II opioid drug., 160, cm, ... Start Date: 09/16/20 Stop Date: 01/14/21 Status: Ordered lidocaine 4% mucous membrane solution 1 application, Topically, 2 times a day, PRN Pain , Mild, # 1 each, 0 Refills, Maintenance, 05/22/20 16:43:00 EST, [facility] #53234, Partial fill upon patient request if the prescription is for a schedule II opioid drug., 1 application Topi... Start Date: 05/22/20 Status: Ordered midodrine 5 mg oral tablet 1, tablet, By Mouth, 3 times a day, # 90 tablet, Refills 3, Tot. Refills 0, Maintenance, 10/22/20 13:38:00 EDT, Route to Pharmacy Electronically, [facility] #[id number], 160, cm, 09/26/20 14:49:00 EDT, Height, 57.86, [...] Mouth, Daily, # 90 capsule, 0 Refills, [facility] #84658, 160, cm, 11/04/2110:39:00 EDT, Height, 57.86, kg, 04/12/20 23:44:00 EST, Dry Weight Start Date: 11/27/20 Status: Ordered traZODone 50 mg oral tablet 2, tablet, By Mouth, Daily at bedtime, # 60 tablet, Refills 2, Route to Pharmacy Electronically, [facility] #[id number], 160, cm, 11/04/20 11:39:00 EDT, Height, 57.86, [...] Myalgia(Confirmed) Active Pre-syncope(Confirmed) Active Orthostatic hypotension(Confirmed) Active *[id number] Care Partn er Tracy Hurst(Confirmed) Active Pain of right sacroiliac joint(Confirmed) Active Lewy body dementia(Confirmed) Active Tinea cruris(Confirmed) Active Unintentional weight loss(Confirmed) Active Urinary incontinence(Confirmed) Active Vitamin D deficiency(Confirmed) Active Social History Social History Type Response Smoking Status Former smoker entered on: 08/26/15 Sex
--- OUTSIDE RECORDS SUMMARY | 2022-10-25 20:04 | XMS_ITS | Continuity of Care Document ---
Author Name Unknown Organization [facility] Address [address] [place] [address]- [place] [facility] [place] [id number] Date(s): 04/01/20 - 05/01/[address] [address]-
--- OUTSIDE RECORDS SUMMARY | 2022-10-25 20:04 | XMS_ITS | Continuity of Care Document ---
Author Name Unknown Organization [facility] Address [address] [place] [address]- Care Team Providers Care Public Address Servicer Name Role Phone Destinee JIMENEZ, Roberta Merida Primary Care Physician [phone] Encounter [facility] Date(s): 07/22/20 - 08/21/[address] [address]- Allergies, Adverse Reactions, Alerts Substance Reaction Severity [...] 11 Refills, Maintenance, 06/24/20 14:40:00 EDT, Tablet, [facility] #[id number], Partial fill upon patient request if the [...] 2 Refills, Maintenance, 08/08/20 16:52:00 EDT, Tablet, [facility] #[id number], Partial fill upon patient request if the [...] 09/16/20 14:56:00 EDT, 05/19/20 14:56:00 EST, Tablet, [facility] #09367, Partial fill upon patient request if the prescription is for a schedule... Start Date: 05/19/20 Stop Date: 09/16/20 Status: Ordered levothyroxine 75 mcg (0.075 mg) oral tablet 1 tablet = 75 mcg, By Mouth, Daily, TK 1 T PO D, # 90 tablet, 1 Refills, Maintenance, 09/16/20 14:56:00 EDT, Tablet, [facility] #02535, Partial fill upon patient request if the prescriptionis for a schedule II opioid drug., 160, cm, ... Start Date: 09/16/20 Stop Date: 01/14/21 Status: Ordered lidocaine 4% mucous membrane solution 1 application, Topically, 2 times a day, PRN Pain , Mild, # 1 each, 0 Refills, Maintenance, 05/22/20 16:43:00 EST, [facility] #[id number], Partial fill upon patient request if the prescription is for a schedule II opioid drug., 1 application Topi... Start Date: 05/22/20 Status: Ordered midodrine 5 mg oral tablet 5 mg, 1, tablet, By Mouth, 3 times a day, lower dose tablet, # 90 tablet, Refills 3, Tot. Refills 3, Maintenance, 06/23/20 14:16:00 EDT, Route to Pharmacy Electronically, [facility] #[id number],Partial fill upon patient request if the prescripti... [...] capsule, 0 Refills, Maintenance, 06/23/20 8:58:00 EDT, [facility] #[id number], 160, cm, 05/21/20 9:12:00 EST, Height, 57.86, kg, 04/12/20 23:44:00 EST, Dry Weight Start Date: 06/23/20 Status: Ordered traZODone 50 mg oral tablet 2, tablet, By Mouth, Daily at bedtime, # 60 tablet, Refills 3, Tot. Refills 0, Maintenance, 07/15/20 10:03:00 EDT, Route to Pharmacy Electronically, [facility] #[id number], 160, cm, 05/21/20 9:12:00 EST, Height, 57.86, [...] Myalgia(Confirmed) Active Pre-syncope(Confirmed) Active Orthostatic hypotension(Confirmed) Active *[id number] Care Partn christie Hurst(Confirmed) Active Pain of right sacroiliac joint(Confirmed) Active Lewy body dementia(Confirmed) Active Tinea cruris(Confirmed) Active Unintentional weight loss(Confirmed) Active Urinary incontinence(Confirmed) Active Vitamin D deficiency(Confirmed) Active Social History Social History Type Response Smoking Status Former smoker entered on: 08/26/15 Sex
--- OUTSIDE RECORDS SUMMARY | 2022-10-25 20:04 | XMS_ITS | Continuity of Care Document ---
Author Name Unknown Organization [facility] Address [address] [place] [address]- Care Team Providers Care Bolter Helper Name Role Phone Roberta Felipe NP Primary Care Physician Encounter [facility] Date(s): 05/26/20 - 06/25/[address] [address]- Allergies, Adverse Reactions, Alerts Substance Reaction Severity [...] 11 Refills, Maintenance, 06/24/20 14:40:00 EDT, Tablet, [facility] #[id number], Partial fill upon patient request if the [...] EDT, Supply Start Date: 06/04/20 Status: Ordered benzonatate 100 mg oral capsule 1 capsule = 100 mg, By Mouth, 3 times a day, for 5 days, # 15 capsule, 0 Refills, Acute 06/28/20 13:27:00 EDT, 06/23/20 13:27:00 EDT, [facility] #[id number], Partial fill upon patient request ifthe prescription is for a schedule II opioid drug.,... Start Date: 06/23/20 Stop Date: 06/28/20 Status: Ordered Diapers See Instructions, # 240 [...] 3 Refills, Maintenance, 05/19/20 14:56:00 EST, Tablet, [facility] #[id number], Partial fill upon patient request if the prescriptionis for a schedule II opioid drug., 160, cm, ... Start Date: 05/19/20 Stop Date: 09/16/20 Status: Ordered lidocaine 4% mucous membrane solution 1 application, Topically, 2 times a day, PRN Pain , Mild, # 1 each, 0 Refills, Maintenance, 05/22/20 16:43:00 EST, [facility] #[id number], Partial fill upon patient request if the prescription is for a schedule II opioid drug., 1 application Topi... Start Date: 05/22/20 Status: Ordered midodrine 5 mg oral tablet 5 mg, 1, tablet, By Mouth, 3 times a day, lower dose tablet, # 90 tablet, Refills 3, Tot. Refills 3, Maintenance, 06/23/20 14:16:00 EDT, Route to Pharmacy Electronically, [facility] #[id number],Partial fill upon patient request if the prescripti... [...] capsule, 0 Refills, Maintenance, 06/23/20 8:58:00 EDT, [facility] #[id number], 160, cm, 05/21/20 9:12:00 EST, Height, 57.86, [...] Myalgia(Confirmed) Active Pre-syncope(Confirmed) Active Orthostatic hypotension(Confirmed) Active *[id number] Care Partn er Tracy Hurst(Confirmed) Active Pain of right sacroiliac joint(Confirmed) Active Lewy body dementia(Confirmed) Active Tinea cruris(Confirmed) Active Unintentional weight loss(Confirmed) Active Urinary incontinence(Confirmed) Active Vitamin D deficiency(Confirmed) Active Social History Social History Type Response Smoking Status Former smoker entered on: 08/26/15 Sex
--- OUTSIDE RECORDS SUMMARY | 2022-10-25 20:04 | XMS_ITS | Continuity of Care Document ---
Author Name Unknown Organization [facility] Address [address] [place] [address]- Care Team Providers Care Screw Down Name Role Phone Destinee JIMENEZ, Roberta Merida Primary Care Physician Encounter [facility] [place] Date(s): 10/02/19 - 11/01/[address] [address]- [facility] Allergies, Adverse Reactions, Alerts Substance Reaction [...] mL, 11 Refills, Maintenance, 10/03/19 11:19:00 EDT, [facility] #[id number], 1 drops Eyes, Both 3 times a [...] mL, 3 Refills, Maintenance, 10/04/19 11:21:00 EDT, [facility] #[id number], 30, 15 mL By Mouth Daily,PRN: NEEDED [...] capsule, 0 Refills, Maintenance, 08/27/19 8:49:00 EDT, [facility] #[id number], 160, cm, 03/22/19 15:22:00 EST, Height Start Date: 08/27/19 Status: Ordered warfarin 2.5 mg oral tablet 1 tablet, By Mouth, Daily, DIRECTED BY NURSE BASED ON INR RESULTS., # 30 tablet, 11 Refills, Maintenance, 09/18/19 16:11:00 EDT, [facility] #[id number], 160, cm, 03/22/19 15:22:00 EST, Height Start [...] back pain(Confirmed) Active Hypotension(Confirmed) Active Myalgia(Confirmed) Active *[id number][facility] Celis Mcfarland(Confirmed) Active Pain of right sacroiliac joint(Confirmed) Active Lewy body dementia(Confirmed) Active Tinea cruris(Confirmed) Active Vitamin D deficiency(Confirmed) Active Social History Social History Type Response Smoking Status Former smoker entered on: 08/26/15 Sex
--- OUTSIDE RECORDS SUMMARY | 2022-10-25 20:05 | XMS_ITS | Continuity of Care Document ---
Author Name Unknown Organization [facility] Address [address] [place] [address]- Care Team Providers Care Cloth Drier Name Role Phone Roberta Felipe NP Primary Care Physician [phone] Encounter [facility] Date(s): 06/23/20 - 07/23/[address] [address] Allergies, Adverse Reactions, Alerts Substance [...] Given 1Result Comment: Administered by Dalia Olguin SPRING TACKER 2Result Comment: incorrect brand entered 3Admin Note: VIS dated 09/13/11 4Admin Note: VIS dated 12/17/08 5Admin Note: VIS dated 04/03/11 Medications apixaban 2.5 mg oral tablet 1 tablet = 2.5 mg, By Mouth, 2 times a day, Transitioning from warfarin to apixaban, # 60 tablet, 11 Refills, Maintenance, 06/24/20 14:40:00 EDT, Tablet, [facility] #35457, Partial fill upon patient request if the [...] 3 Refills, Maintenance, 05/19/20 14:56:00 EST, Tablet, [facility] #[id number], Partial fill upon patient request if the prescriptionis for a schedule II opioid drug., 160, cm, ... Start Date: 05/19/20 Stop Date: 09/16/20 Status: Ordered lidocaine 4% mucous membrane solution 1 application, Topically, 2 times a day, PRN Pain , Mild, # 1 each, 0 Refills, Maintenance, 05/22/20 16:43:00 EST, [facility] #84377, Partial fill upon patient request if the prescription is for a schedule II opioid drug., 1 application Topi... Start Date: 05/22/20 Status: Ordered midodrine 5 mg oral tablet 5 mg, 1, tablet, By Mouth, 3 times a day, lower dose tablet, # 90 tablet, Refills 3, Tot. Refills 3, Maintenance, 06/23/20 14:16:00 EDT, Route to Pharmacy Electronically, [facility] #[id number],Partial fill upon patient request if the prescripti... [...] capsule, 0 Refills, Maintenance, 06/23/20 8:58:00 EDT, [facility] #[id number], 160, cm, 05/21/20 9:12:00 EST, Height, 57.86, kg, 04/12/20 23:44:00 EST, Dry Weight Start Date: 06/23/20 Status: Ordered traZODone 50 mg oral tablet 2, tablet, By Mouth, Daily at bedtime, # 60 tablet, Refills 3, Tot. Refills 0, Maintenance, 07/15/20 10:03:00 EDT, Route to Pharmacy Electronically, [facility] #[id number], 160, cm, 05/21/20 9:12:00 EST, Height, 57.86, [...] Myalgia(Confirmed) Active Pre-syncope(Confirmed) Active Orthostatic hypotension(Confirmed) Active *[id number] Care Partn er Tracy Hurst(Confirmed) Active Pain of right sacroiliac joint(Confirmed) Active Lewy body dementia(Confirmed) Active Tinea cruris(Confirmed) Active Unintentional weight loss(Confirmed) Active Urinary incontinence(Confirmed) Active Vitamin D deficiency(Confirmed) Active Social History Social History Type Response Smoking Status Former smoker entered on: 08/26/15 Sex
--- OUTSIDE RECORDS SUMMARY | 2022-10-25 20:05 | XMS_ITS | Continuity of Care Document ---
Author Name Unknown Organization [facility] Address Unknown Care Team Providers Care Career And Technology Education Teacher Name Role Phone Destinee JIMENEZ, Roberta Merida Primary Care Physician Encounter [facility] [place] ACCT R [id number] Date(s): 11/20/20 - 12/20/20 [facility] Attending Physician: Hiren Blackburn Admitting Physician: [...] Refills, Maintenance, 11/06/20 13:04:00 EDT, Ophth Solution, [facility] #[id number], Partial fill upon patient request if the [...] tablet, 5 Refills, Maintenance, 11/20/20 11:43:00 EDT, [facility] #[id number], Please print in turkish, 160, cm, 11/04/20 11:39:00 EDT, Height, 57.86, [...] 2 Refills, Maintenance, 11/06/20 13:03:00 EDT, Syrup, [facility] #15329, Partial fill upon patient request if the [...] 6 Refills, Maintenance, 11/20/20 11:42:00 EDT, Tablet, [facility] #90695, Partial fill upon patient request if the prescription is for a schedule II opioid drug., 160, cm, 11/04/20 11:... Start Date: 11/20/20 Stop Date: 06/18/21 Status: Ordered levothyroxine 75 mcg (0.075 mg) oral tablet 1 tablet = 75 mcg, By Mouth, Daily, TK 1 T PO D, # 90 tablet, 1 Refills, Maintenance, 09/16/20 14:56:00 EDT, Tablet, [facility] #[id number], Partial fill upon patient request if the prescriptionis for a schedule II opioid drug., 160, cm, ... Start Date: 09/16/20 Stop Date: 01/14/21 Status: Ordered lidocaine 4% mucous membrane solution 1 application, Topically, 2 times a day, PRN Pain , Mild, # 1 each, 0 Refills, Maintenance, 05/22/20 16:43:00 EST, [facility] #[id number], Partial fill upon patient request if the prescription is for a schedule II opioid drug., 1 application Topi... Start Date: 05/22/20 Status: Ordered midodrine 5 mg oral tablet 1, tablet, By Mouth, 3 times a day, # 90 tablet, Refills 3, Tot. Refills 0, Maintenance, 10/22/20 13:38:00 EDT, Route to Pharmacy Electronically, [facility] #[id number], 160, cm, 09/26/20 14:49:00 EDT, Height, 57.86, [...] Mouth, Daily, # 90 capsule, 0 Refills, [facility] #[id number], 160, cm, 11/04/2110:39:00 EDT, Height, 57.86, kg, 04/12/20 23:44:00 EST, Dry Weight Start Date: 11/27/20 Status: Ordered traZODone 50 mg oral tablet 2, tablet, By Mouth, Daily at bedtime, # 60 tablet, Refills 2, Route to Pharmacy Electronically, [facility] #[id number], 160, cm, 11/04/20 11:39:00 EDT, Height, 57.86, [...] Myalgia(Confirmed) Active Pre-syncope(Confirmed) Active Orthostatic hypotension(Confirmed) Active *[id number] Care Partn er Tracy Hurst(Confirmed) Active Pain of right sacroiliac joint(Confirmed) Active Lewy body dementia(Confirmed) Active Tinea cruris(Confirmed) Active Unintentional weight loss(Confirmed) Active Urinary incontinence(Confirmed) Active Vitamin D deficiency(Confirmed) Active Social History Social History Type Response Smoking Status Former smoker entered on: 08/26/15 Sex
--- OUTSIDE RECORDS SUMMARY | 2022-10-25 20:05 | XMS_ITS | Continuity of Care Document ---
Author Name Unknown Organization [facility] Address [address] [place] [address]- Care Team Providers Care Precision Layout Worker Name Role Phone Roberta Felipe NP Primary Care Physician [phone] [place] [facility] [place](s): 04/29/20 - 06/05/[address] [address]- Attending Physician: Not on Staff, Attending MD [...] 3 Refills, Maintenance, 05/19/20 14:56:00 EST, Tablet, [facility] #[id number], Partial fill upon patient request if the prescriptionis for a schedule II opioid drug., 160, cm, ... Start Date: 05/19/20 Stop Date: 09/16/20 Status: Ordered lidocaine 4% mucous membrane solution 1 application, Topically, 2 times a day, PRN Pain , Mild, # 1 each, 0 Refills, Maintenance, 05/22/20 16:43:00 EST, [facility] #[id number], Partial fill upon patient request if the [...] capsule, 0 Refills, Maintenance, 04/16/20 14:22:00 EST, [facility] #[id number], 160, cm, 04/16/20 8:39:00 EST, Height, 57.86, [...] each, 11 Refills, Maintenance, 06/03/20 14:11:00 EDT, [facility] #[id number], Partial fill upon patient request if the [...] Myalgia(Confirmed) Active Pre-syncope(Confirmed) Active Orthostatic hypotension(Confirmed) Active *[id number] Care Partn er Tracy Hurst(Confirmed) Active Pain of right sacroiliac joint(Confirmed) Active Lewy body dementia(Confirmed) Active Tinea cruris(Confirmed) Active Unintentional weight loss(Confirmed) Active Urinary incontinence(Confirmed) Active Vitamin D deficiency(Confirmed) Active Social History Social History Type Response Smoking Status Former smoker entered on: 08/26/15 Sex
--- OUTSIDE RECORDS SUMMARY | 2022-10-25 20:05 | XMS_ITS | Continuity of Care Document ---
Author Name Unknown Organization [facility] Address [address] [place] [address]- Care Team Providers Care Research Management Associate Name Role Phone Destinee JIMENEZ, Roberta Merida Primary Care Physician Encounter [facility] Date(s): 02/05/20 - 03/06/[address] [address]- Allergies, Adverse Reactions, Alerts Substance Reaction Severity [...] mL, 11 Refills, Maintenance, 10/03/19 11:19:00 EDT, [facility] #[id number], 1 drops Eyes, Both 3 times a [...] mL, 3 Refills, Maintenance, 10/04/19 11:21:00 EDT, [facility] #07949, 30, 15 mL By Mouth Daily,PRN: NEEDED FOR CONSTIPATION, 160, cm, 03/22/19 15:22:00 EST, Height Start Date: 10/04/19 Status: Ordered levothyroxine 75 mcg (0.075 mg) oral tablet 1 tablet = 75 mcg, By Mouth, Daily, increase in dose, # 90 tablet, 1 Refills, Maintenance, 11/07/2009:50:00 EDT, Tablet, [facility] #87497, 160, cm, 03/22/19 15:22:00 EST, Height Start [...] capsule, 1 Refills, Maintenance, 11/23/19 15:26:00 EDT, [facility] #[id number], 160, cm, 03/22/19 15:22:00 EST, Height Start Date: 11/23/19 Status: Ordered traZODone 50 mg oral tablet 50 mg, 1, tablet, By Mouth, Daily at bedtime, # 30 tablet, Refills 0, Tot. Refills 0, Maintenance, 02/22/20 8:45:00 EST, Route to Pharmacy Electronically, [facility] #[id number], Partial fill upon patient request if the prescription is for a sche... Start Date: 02/22/20 Stop Date: 03/28/20 Status: Ordered warfarin 2.5 mg oral tablet 1 tablet, By Mouth, Daily, DIRECTED BY NURSE BASED ON INR RESULTS., # 30 tablet, 11 Refills, Maintenance, 09/18/19 16:11:00 EDT, [facility] #[id number], 160, cm, 03/22/19 15:22:00 EST, Height Start [...] Myalgia(Confirmed) Active Pre-syncope(Confirmed) Active Orthostatic hypotension(Confirmed) Active *[id number] Care Partn er Tracy Hurst(Confirmed) Active Pain of right sacroiliac joint(Confirmed) Active Lewy body dementia(Confirmed) Active Tinea cruris(Confirmed) Active Unintentional weight loss(Confirmed) Active Urinary incontinence(Confirmed) Active Vitamin D deficiency(Confirmed) Active Social History Social History Type Response Smoking Status Former smoker entered on: 08/26/15 Sex
--- OUTSIDE RECORDS SUMMARY | 2022-10-25 20:05 | XMS_ITS | Continuity of Care Document ---
Author Name Unknown Organization [facility] Address [address] [place] [address]- Care Team Providers Care Air Conditioning Coil Assembler Name Role Phone Destinee JIMENEZ, Roberta Merida Primary Care Physician [facility]counter [facility] Date(s): 03/11/20 - 04/10/[address] [address]- Allergies, Adverse Reactions, Alerts Substance Reaction Severity [...] mL, 11 Refills, Maintenance, 10/03/19 11:19:00 EDT, [facility] #[id number], 1 drops Eyes, Both 3 times a [...] mL, 3 Refills, Maintenance, 10/04/19 11:21:00 EDT, [facility] #[id number], 30, 15 mL By Mouth Daily,PRN: NEEDED FOR CONSTIPATION, 160, cm, 03/22/19 15:22:00 EST, Height Start Date: 10/04/19 Status: Ordered levothyroxine 75 mcg (0.075 mg) oral tablet 1 tablet = 75 mcg, By Mouth, Daily, increase in dose, # 90 tablet, 1 Refills, Maintenance, 11/07/2009:50:00 EDT, Tablet, [facility] #[id number], 160, cm, 03/22/19 15:22:00 EST, Height Start Date: 11/08/19 Stop Date: 11/02/20 Status: Ordered midodrine 10 mg oral tablet 0.5 tablet = 5 mg, By Mouth, 3 times a day, # 45 tablet, 5 Refills, Maintenance, 03/27/20 10:17:00 EST, Tablet, [facility] #[id number], Partial fill upon patient request if the prescription is for a schedule II opioid drug., 160, cm, 03/13/20 8:2... Start Date: 03/27/20 Stop Date: 09/23/20 Status: Ordered omeprazole 40 mg oral enteric coated capsule 1 capsule, By Mouth, Daily, # 90 capsule, 1 Refills, Maintenance, 11/23/19 15:26:00 EDT, [facility] #[id number], 160, cm, 03/22/19 15:22:00 EST, Height Start [...] Maintenance,03/27/20 10:16:00 EST, Route to Pharmacy Electronically, [facility] #[id number], Partial fill upon patient request if the prescription is for a sc... Start Date: 03/27/20 Stop Date: 07/25/20 Status: Ordered warfarin 2.5 mg oral tablet 1 tablet, By Mouth, Daily, DIRECTED BY NURSE BASED ON INR RESULTS., # 30 tablet, 11 Refills, Maintenance, 09/18/19 16:11:00 EDT, [facility] #[id number], 160, cm, 03/22/19 15:22:00 EST, Height Start [...] Myalgia(Confirmed) Active Pre-syncope(Confirmed) Active Orthostatic hypotension(Confirmed) Active *[id number] Care Partn er Tracyyusuf Hurst(Confirmed) Active Pain of right sacroiliac joint(Confirmed) Active Lewy body dementia(Confirmed) Active Tinea cruris(Confirmed) Active Unintentional weight loss(Confirmed) Active Urinary incontinence(Confirmed) Active Vitamin D deficiency(Confirmed) Active Social History Social History Type Response Smoking Status Former smoker entered on: 08/26/15 Sex
--- OUTSIDE RECORDS SUMMARY | 2022-10-25 20:05 | XMS_ITS | Continuity of Care Document ---
Author Name Unknown Organization [facility] Address [address] [place] [address]- Care Team Providers Care Retort Loader Name Role Phone Destinee JIMENEZ, Roberta Merida Primary Care Physician [phone] [place]counter [facility] [place](s): 10/03/19 - 11/02/[address] [address]- [facility] Allergies, Adverse Reactions, Alerts Substance Reaction [...] mL, 11 Refills, Maintenance, 10/03/19 11:19:00 EDT, [facility] #[id number], 1 drops Eyes, Both 3 times a [...] secondary to lewy body dementia R32, G31.83, 11/02/19 15:58:00 EDT, Supply Start Date: 11/02/19 Status: Ordered Ensure Ensure, See Instructions, # [...] mL, 3 Refills, Maintenance, 10/04/19 11:21:00 EDT, [facility] #[id number], 30, 15 mL By Mouth Daily,PRN: NEEDED [...] capsule, 0 Refills, Maintenance, 08/27/19 8:49:00 EDT, [facility] #[id number], 160, cm, 03/22/19 15:22:00 EST, Height Start Date: 08/27/19 Status: Ordered warfarin 2.5 mg oral tablet 1 tablet, By Mouth, Daily, DIRECTED BY NURSE BASED ON INR RESULTS., # 30 tablet, 11 Refills, Maintenance, 09/18/19 16:11:00 EDT, [facility] #[id number], 160, cm, 03/22/19 15:22:00 EST, Height Start [...] back pain(Confirmed) Active Hypotension(Confirmed) Active Myalgia(Confirmed) Active *[id number]-[facility] Partn jeramie Vimal Mcfarland(Confirmed) Active Pain of right sacroiliac joint(Confirmed) Active Lewy body dementia(Confirmed) Active Tinea cruris(Confirmed) Active Urinary incontinence(Confirmed) Active Vitamin D deficiency(Confirmed) Active Social History Social History Type Response Smoking Status Former smoker entered on: 08/26/15 Sex
--- OUTSIDE RECORDS SUMMARY | 2022-10-25 20:05 | XMS_ITS | Continuity of Care Document ---
Author Name Unknown Organization [facility] Address [address] [place] [address]- Care Team Providers Care Tractor Operator Helper Name Role Phone Destinee JIMENEZ, Roberta Merida Primary Care Physician [facility] Date(s): 03/19/20 - 04/18/[address] [address]- Allergies, Adverse Reactions, Alerts Substance Reaction Severity [...] capsule, 0 Refills, Maintenance, 04/16/20 14:22:00 EST, [facility] #[id number], 160, cm, 04/16/20 8:39:00 EST, Height, 57.86, kg, 04/12/20 23:44:00 EST, Dry Weight Start Date: 04/16/20 Status: Ordered traZODone 50 mg oral tablet TAKE 2 TABLETS BY MOUTH DAILY AT BEDTIME Start Date: 04/12/20 Status: Ordered warfarin 3 mg oral tablet 1 tablet = 3 mg, By Mouth, Daily, # 30 tablet, 0 Refills, Maintenance, 04/16/20 12:40:00 EST, Tablet, [facility] #[id number], Partial fill upon patient request if the [...] Myalgia(Confirmed) Active Pre-syncope(Confirmed) Active Orthostatic hypotension(Confirmed) Active *[id number] Care Partn er Tracy Lagosan(Confirmed) Active Pain of right sacroiliac joint(Confirmed) Active Lewy body dementia(Confirmed) Active Tinea cruris(Confirmed) Active Unintentional weight loss(Confirmed) Active Urinary incontinence(Confirmed) Active Vitamin D deficiency(Confirmed) Active Social History Social History Type Response Smoking Status Former smoker entered on: 08/26/15 Sex
--- OUTSIDE RECORDS SUMMARY | 2022-10-25 20:05 | XMS_ITS | Continuity of Care Document ---
Author Name Unknown Organization [facility] Address [address] [place] [address]- Care Team Providers Care Supervisor Electronics Inspection Name Role Phone Roberta Felipe NP Primary Care Physician [phone] Encounter [facility] Date(s): 08/01/20 - 08/31/[address] [address]- Allergies, Adverse Reactions, Alerts Substance Reaction Severity [...] Given 1Result Comment: Administered by Dalia Olguin NEUROLOGY PHYSICIAN 2Result Comment: incorrect brand entered 3Admin Note: VIS dated 09/13/11 4Admin Note: VIS dated 12/17/08 5Admin Note: VIS dated 04/03/11 Medications apixaban 2.5 mg oral tablet 1 tablet = 2.5 mg, By Mouth, 2 times a day, Transitioning from warfarin to apixaban, # 60 tablet, 11 Refills, Maintenance, 06/24/20 14:40:00 EDT, Tablet, [facility] #[id number], Partial fill upon patient request if the [...] 2 Refills, Maintenance, 08/08/20 16:52:00 EDT, Tablet, [facility] #06652, Partial fill upon patient request if the [...] 09/16/20 14:56:00 EDT, 05/19/20 14:56:00 EST, Tablet, [facility] #[id number], Partial fill upon patient request if the prescription is for a schedule... Start Date: 05/19/20 Stop Date: 09/16/20 Status: Ordered levothyroxine 75 mcg (0.075 mg) oral tablet 1 tablet = 75 mcg, By Mouth, Daily, TK 1 T PO D, # 90 tablet, 1 Refills, Maintenance, 09/16/20 14:56:00 EDT, Tablet, [facility] #[id number], Partial fill upon patient request if the prescriptionis for a schedule II opioid drug., 160, cm, ... Start Date: 09/16/20 Stop Date: 01/14/21 Status: Ordered lidocaine 4% mucous membrane solution 1 application, Topically, 2 times a day, PRN Pain , Mild, # 1 each, 0 Refills, Maintenance, 05/22/20 16:43:00 EST, [facility] #[id number], Partial fill upon patient request if the prescription is for a schedule II opioid drug., 1 application Topi... Start Date: 05/22/20 Status: Ordered midodrine 5 mg oral tablet 5 mg, 1, tablet, By Mouth, 3 times a day, lower dose tablet, # 90 tablet, Refills 3, Tot. Refills 3, Maintenance, 06/23/20 14:16:00 EDT, Route to Pharmacy Electronically, [facility] #[id number],Partial fill upon patient request if the prescripti... [...] capsule, 0 Refills, Maintenance, 06/23/20 8:58:00 EDT, [facility] #[id number], 160, cm, 05/21/20 9:12:00 EST, Height, 57.86, kg, 04/12/20 23:44:00 EST, Dry Weight Start Date: 06/23/20 Status: Ordered traZODone 50 mg oral tablet 2, tablet, By Mouth, Daily at bedtime, # 60 tablet, Refills 3, Tot. Refills 0, Maintenance, 07/15/20 10:03:00 EDT, Route to Pharmacy Electronically, [facility] #[id number], 160, cm, 05/21/20 9:12:00 EST, Height, 57.86, [...] Myalgia(Confirmed) Active Pre-syncope(Confirmed) Active Orthostatic hypotension(Confirmed) Active *[id number] Care Partn er Tracy Hurst(Confirmed) Active Pain of right sacroiliac joint(Confirmed) Active Lewy body dementia(Confirmed) Active Tinea cruris(Confirmed) Active Unintentional weight loss(Confirmed) Active Urinary incontinence(Confirmed) Active Vitamin D deficiency(Confirmed) Active Social History Social History Type Response Smoking Status Former smoker entered on: 08/26/15 Sex
--- OUTSIDE RECORDS SUMMARY | 2022-10-25 20:05 | XMS_ITS | Continuity of Care Document ---
Author Name Unknown Organization [facility] Address [address] [place] [address]- Care Team Providers Care Pediatric Registered Nurse Name Role Phone Destinee JIMENEZ, Roberta Merida Primary Care Physician [place] [facility] [place]18[place] - 10/18/[address] [address]- [facility] Allergies, Adverse Reactions, Alerts Substance [...] mL, 11 Refills, Maintenance, 10/03/19 11:19:00 EDT, [facility] #[id number], 1 drops Eyes, Both 3 times a [...] mL, 3 Refills, Maintenance, 10/04/19 11:21:00 EDT, [facility] #[id number], 30, 15 mL By Mouth Daily,PRN: NEEDED [...] capsule, 0 Refills, Maintenance, 08/27/19 8:49:00 EDT, [facility] #[id number], 160, cm, 03/22/19 15:22:00 EST, Height Start Date: 08/27/19 Status: Ordered warfarin 2.5 mg oral tablet 1 tablet, By Mouth, Daily, DIRECTED BY NURSE BASED ON INR RESULTS., # 30 tablet, 11 Refills, Maintenance, 09/18/19 16:11:00 EDT, [facility] #[id number], 160, cm, 03/22/19 15:22:00 EST, Height Start [...] back pain(Confirmed) Active Hypotension(Confirmed) Active Myalgia(Confirmed) Active *[id number] Celis Mcfarland(Confirmed) Active Pain of right sacroiliac joint(Confirmed) Active Lewy body dementia(Confirmed) Active Tinea cruris(Confirmed) Active Vitamin D deficiency(Confirmed) Active Social History Social History Type Response Smoking Status Former smoker entered on: 08/26/15 Sex
--- OUTSIDE RECORDS SUMMARY | 2022-10-25 20:05 | XMS_ITS | Continuity of Care Document ---
Author Name Unknown Organization [facility] Address [address] [place] [address]- Care Team Providers Care Tire Trucker Name Role Phone Destinee JIMENEZ, Roberta Merida Primary Care Physician Encounter [facility] Date(s): 08/13/20 - 09/12/[address] [address]- Allergies, Adverse Reactions, Alerts Substance Reaction Severity [...] 11 Refills, Maintenance, 06/24/20 14:40:00 EDT, Tablet, [facility] #[id number], Partial fill upon patient request if the [...] 2 Refills, Maintenance, 08/08/20 16:52:00 EDT, Tablet, [facility] #[id number], Partial fill upon patient request if the [...] 09/16/20 14:56:00 EDT, 05/19/20 14:56:00 EST, Tablet, [facility] #[id number], Partial fill upon patient request if the prescription is for a schedule... Start Date: 05/19/20 Stop Date: 09/16/20 Status: Ordered levothyroxine 75 mcg (0.075 mg) oral tablet 1 tablet = 75 mcg, By Mouth, Daily, TK 1 T PO D, # 90 tablet, 1 Refills, Maintenance, 09/16/20 14:56:00 EDT, Tablet, [facility] #[id number], Partial fill upon patient request if the prescriptionis for a schedule II opioid drug., 160, cm, ... Start Date: 09/16/20 Stop Date: 01/14/21 Status: Ordered lidocaine 4% mucous membrane solution 1 application, Topically, 2 times a day, PRN Pain , Mild, # 1 each, 0 Refills, Maintenance, 05/22/20 16:43:00 EST, [facility] #[id number], Partial fill upon patient request if the prescription is for a schedule II opioid drug., 1 application Topi... Start Date: 05/22/20 Status: Ordered midodrine 5 mg oral tablet 5 mg, 1, tablet, By Mouth, 3 times a day, lower dose tablet, # 90 tablet, Refills 3, Tot. Refills 3, Maintenance, 06/23/20 14:16:00 EDT, Route to Pharmacy Electronically, [facility] #[id number],Partial fill upon patient request if the prescripti... [...] capsule, 0 Refills, Maintenance, 09/10/20 8:11:00 EDT, [facility] #[id number], 160, cm, 08/21/20 12:36:00 EDT, Height, 57.86, kg, 04/12/20 23:44:00 EST, Dry Weight Start Date: 09/10/20 Status: Ordered traZODone 50 mg oral tablet 2, tablet, By Mouth, Daily at bedtime, # 60 tablet, Refills 3, Tot. Refills 0, Maintenance, 07/15/20 10:03:00 EDT, Route to Pharmacy Electronically, [facility] #[id number], 160, cm, 05/21/20 9:12:00 EST, Height, 57.86, [...] Myalgia(Confirmed) Active Pre-syncope(Confirmed) Active Orthostatic hypotension(Confirmed) Active *[id number] Care Partn er Tracy Hurst(Confirmed) Active Pain of right sacroiliac joint(Confirmed) Active Lewy body dementia(Confirmed) Active Tinea cruris(Confirmed) Active Unintentional weight loss(Confirmed) Active Urinary incontinence(Confirmed) Active Vitamin D deficiency(Confirmed) Active Social History Social History Type Response Smoking Status Former smoker entered on: 08/26/15 Sex
--- OUTSIDE RECORDS SUMMARY | 2022-10-25 20:05 | XMS_ITS | Continuity of Care Document ---
Author Name Unknown Organization [facility] Address [address] [place] [address]- Care Team Providers Care Shading Painter Name Role Phone Roberta Felipe NP Primary Care Physician [phone] Encounter [facility] Date(s): 05/26/20 - 06/25/[address] [address]- Allergies, Adverse Reactions, Alerts Substance Reaction Severity [...] 11 Refills, Maintenance, 06/24/20 14:40:00 EDT, Tablet, [facility] #[id number], Partial fill upon patient request if the [...] Acute 06/28/20 13:27:00 EDT, 06/23/20 13:27:00 EDT, [facility] #[id number], Partial fill upon patient request ifthe prescription [...] 3 Refills, Maintenance, 05/19/20 14:56:00 EST, Tablet, [facility] #96273, Partial fill upon patient request if the prescriptionis for a schedule II opioid drug., 160, cm, ... Start Date: 05/19/20 Stop Date: 09/16/20 Status: Ordered lidocaine 4% mucous membrane solution 1 application, Topically, 2 times a day, PRN Pain , Mild, # 1 each, 0 Refills, Maintenance, 05/22/20 16:43:00 EST, [facility] #[id number], Partial fill upon patient request if the prescription is for a schedule II opioid drug., 1 application Topi... Start Date: 05/22/20 Status: Ordered midodrine 5 mg oral tablet 5 mg, 1, tablet, By Mouth, 3 times a day, lower dose tablet, # 90 tablet, Refills 3, Tot. Refills 3, Maintenance, 06/23/20 14:16:00 EDT, Route to Pharmacy Electronically, [facility] #[id number],Partial fill upon patient request if the prescripti... [...] capsule, 0 Refills, Maintenance, 06/23/20 8:58:00 EDT, [facility] #[id number], 160, cm, 05/21/20 9:12:00 EST, Height, 57.86, [...] Myalgia(Confirmed) Active Pre-syncope(Confirmed) Active Orthostatic hypotension(Confirmed) Active *[id number] Care Partn er Tracy Hurst(Confirmed) Active Pain of right sacroiliac joint(Confirmed) Active Lewy body dementia(Confirmed) Active Tinea cruris(Confirmed) Active Unintentional weight loss(Confirmed) Active Urinary incontinence(Confirmed) Active Vitamin D deficiency(Confirmed) Active Social History Social History Type Response Smoking Status Former smoker entered on: 08/26/15 Sex
--- OUTSIDE RECORDS SUMMARY | 2022-10-25 20:05 | XMS_ITS | Continuity of Care Document ---
Author Name Unknown Organization [facility] Address [address] [place] [address]- Care Team Providers Care Polystyrene Bead Molder Name Role Phone Destinee JIMENEZ, oRberta Merida Primary Care Physician Encounter [facility] Date(s): 04/05/22 - 05/05/[address] [address]- Allergies, Adverse Reactions, Alerts Substance Reaction Severity Status penicillin rash Active Immunizations Given and Recorded Vaccine Date Status Refusal Reason [id number] 12y+ bivalent booster vax 03/05/22 Given influenza [...] inactivated 2 05/31/12 [facility] SARS-CoV-2 mRNA ([id number]) vax 06/19/21 Given SARS-CoV-2 (COVID-19) mRNA BNT-162b2 vac 05/17/20 Given SARS-CoV-2 (COVID-19) mRNA BNT-162b2 vac 3 04/26/20 Given pneumococcal 13-valent vaccine 08/31/16 Given pneumococcal 23-valent vaccine 4 05/31/12 Given tetanus/diphtheria/pertussis, acel(Tdap) 5 05/31/12 Given 1Result Comment: incorrect brand entered 2Admin Note: VIS dated 09/13/11 3Result Comment: Administered by Dalia Olguin CAN STRIPER 4Admin Note: VIS dated 12/17/08 5Admin Note: VIS dated 04/03/11 Medications Artificial Tears preserved solution 1 drops, Eyes, Both, 4 times a day, PRN Dry Eyes, # 10 mL, 11 Refills, Maintenance, 01/26/22 14:13:00 EST, Ophth Solution, [facility] #[id number], Partial fill upon patient request if the [...] tablet, 5 Refills, Maintenance, 10/26/21 14:08:00 EDT, [facility] #[id number], Please print in mosotho, 160, cm, 08/27/21 13:11:00 EDT, Height, 57.86, [...] 01/26/22 14:13:00 EST, Route to Pharmacy Electronically, [facility]#[id number], Partial fill upon patient request if the pr... Start Date: 01/26/22 Status: Ordered Eucerin Eczema Relief topical cream 1 application, Topically, 2 times a day, # 240 Gm, 5 Refills, Maintenance, 01/15/21 16:05:00 EDT, [facility] #[id number], Partial fill upon patient request if the prescription is for a schedule II opioid drug., 1 application Topically 2 times a d... Start Date: 01/15/21 Status: Ordered guaiFENesin 400 mg oral tablet 1 tablet = 400 mg, By Mouth, Every 4 hours, PRN as needed for congestion and cough, # 30 tablet, 1 Refills, Maintenance, 08/27/21 13:40:00 EDT, Tablet, [facility] #[id number], Partial fill upon patient request if the [...] 2 Refills, Maintenance, 08/17/21 13:14:00 EDT, Syrup, [facility] #[id number], 15 mL By Mouth Daily,PRN:as needed for [...] 5 Refills, Maintenance, 10/26/21 14:08:00 EDT, Tablet, [facility] #[id number], Partial fill upon patient request if the prescription is for a schedule II opioid drug., 160, cm, 08/27/21 13:... Start Date: 10/26/21 Status: Ordered levothyroxine 75 mcg (0.075 mg) oral tablet 1 tablet = 75 mcg, By Mouth, Daily, TK 1 T PO D, # 90 tablet, 1 Refills, Maintenance, 04/21/22 9:43:00 EST, Tablet, [facility] #[id number], Partial fill upon patient request if the prescription is for a schedule II opioid drug., 160, cm, ... Start Date: 04/21/22 Status: Ordered lidocaine 4% mucous membrane solution 1 application, Topically, 2 times a day, PRN Pain , Mild, # 1 each, 0 Refills, Maintenance, 05/22/20 16:43:00 EST, [facility] #[id number], Partial fill upon patient request if the prescription is for a schedule II opioid drug., 1 application Topi... Start Date: 05/22/20 Status: Ordered midodrine 5 mg oral tablet 1, tablet, By Mouth, 3 times a day, # 90 tablet, Refills 3, Tot. Refills 3, Maintenance, 10/27/21 15:24:00 EDT, Route to Pharmacy Electronically, [facility] #[id number], 160, cm, 08/27/21 13:11:00 EDT, Height, 57.86, [...] 90 capsule, 1 Refills, 11/23/21 16:42:00 EDT, [facility] #[id number], 160, cm, 08/27/21 13:11:00 EDT, Height, 57.86, kg, 04/12/20 23:44:00 EST, Dry Weight Start Date: 11/23/21 Status: Ordered traZODone 50 mg oral tablet 2, tablet, By Mouth, Daily at bedtime, # 60 tablet, Refills 2, Tot. Refills 2, 05/03/22 11:14:00 EST, Route to Pharmacy Electronically, [facility] #[id number], 160, cm, 04/19/22 17:27:00 EST, Height Start [...] Pre-syncope Confirmed Active Orthostatic hypotension Confirmed Active *[id number] Quiller Machine Fixer Yi Campos Confirmed Active Pain of right [...] Matilde Mahmood RN Position: [facility] RN Member Role: Primary Care Nurse Name: Roberta Felipe NP Position: [facility] PCO Associate Professional Member Role: PCP Address: Address: [address] [place] [address] Name: ALESSANDRO VILLATORO RN Position: [facility] RN Member Role: Primary Care Nurse Name: Lilo Maldonado RN Position: [facility] RN Member Role: Primary Care Nurse Name: Anuj Murillo RN Position: [facility] RN Member Role: Primary Care Nurse Name: Jasmin Oliva Position: [facility] Outreach Member Role: Lifetime Consulting Physician Name: Suzanne Celeste RN Position: [facility] RN Member Role: Primary Care Nurse Name: Lily Solis RN Position: [facility] Onco RN Member Role: Primary Care Nurse Name: Adela Tadeo RN Position: [facility] RN Member Role: Primary Care Nurse Name: Maci Jones RN Position: [facility] RN Member Role: Primary Care Nurse Name: Nancy Morrow RN Position: [facility] RN Member Role: Primary Care Nurse Name: Etta Dewitt RN Position: [facility] RN Member Role: Primary Care Nurse Care Team Related Persons Name: JESSIKA HEARD Address: [address] [address] Name: JESSICA JOSUE Address: [address] [place] [address] Name: CARLOS CEJA Address: home [address] [address]
--- OUTSIDE RECORDS SUMMARY | 2022-10-25 20:05 | XMS_ITS | Continuity of Care Document ---
Author Name Unknown Organization [facility] Address [address] [place] [address]- Care Team Providers Care Deputy General Counsel Name Role Phone Destinee JIMENEZ, Roberta Merida Primary Care Physician [facility] Date[facility]s): 06/03/20 - 07/03/[address] [address]- Allergies, Adverse Reactions, Alerts Substance Reaction Severity [...] 11 Refills, Maintenance, 06/24/20 14:40:00 EDT, Tablet, [facility] #[id number], Partial fill upon patient request if the [...] 3 Refills, Maintenance, 05/19/20 14:56:00 EST, Tablet, [facility] #[id number], Partial fill upon patient request if the prescriptionis for a schedule II opioid drug., 160, cm, ... Start Date: 05/19/20 Stop Date: 09/16/20 Status: Ordered lidocaine 4% mucous membrane solution 1 application, Topically, 2 times a day, PRN Pain , Mild, # 1 each, 0 Refills, Maintenance, 05/22/20 16:43:00 EST, [facility] #02821, Partial fill upon patient request if the prescription is for a schedule II opioid drug., 1 application Topi... Start Date: 05/22/20 Status: Ordered midodrine 5 mg oral tablet 5 mg, 1, tablet, By Mouth, 3 times a day, lower dose tablet, # 90 tablet, Refills 3, Tot. Refills 3, Maintenance, 06/23/20 14:16:00 EDT, Route to Pharmacy Electronically, [facility] #[id number],Partial fill upon patient request if the prescripti... [...] capsule, 0 Refills, Maintenance, 06/23/20 8:58:00 EDT, [facility] #[id number], 160, cm, 05/21/20 9:12:00 EST, Height, 57.86, [...] Myalgia(Confirmed) Active Pre-syncope(Confirmed) Active Orthostatic hypotension(Confirmed) Active *[id number] Care Partn er Tracy Hurst(Confirmed) Active Pain of right sacroiliac joint(Confirmed) Active Lewy body dementia(Confirmed) Active Tinea cruris(Confirmed) Active Unintentional weight loss(Confirmed) Active Urinary incontinence(Confirmed) Active Vitamin D deficiency(Confirmed) Active Social History Social History Type Response Smoking Status Former smoker entered on: 08/26/15 Sex
--- OUTSIDE RECORDS SUMMARY | 2022-10-25 20:05 | XMS_ITS | Continuity of Care Document ---
Author Name Unknown Organization [facility] Address [address] [place] [address]- Care Team Providers Care Audio Specialist Name Role Phone Destinee JIMENEZ, Roberta Merida Primary Care Physician [phone] Encounter [facility] Date(s): 02/19/20 - 03/20/[address] [address]- Allergies, Adverse Reactions, Alerts Substance Reaction Severity [...] mL, 11 Refills, Maintenance, 10/03/19 11:19:00 EDT, [facility] #[id number], 1 drops Eyes, Both 3 times a [...] mL, 3 Refills, Maintenance, 10/04/19 11:21:00 EDT, [facility] #[id number], 30, 15 mL By Mouth Daily,PRN: NEEDED FOR CONSTIPATION, 160, cm, 03/22/19 15:22:00 EST, Height Start Date: 10/04/19 Status: Ordered levothyroxine 75 mcg (0.075 mg) oral tablet 1 tablet = 75 mcg, By Mouth, Daily, increase in dose, # 90 tablet, 1 Refills, Maintenance, 11/07/2009:50:00 EDT, Tablet, [facility] #[id number], 160, cm, 03/22/19 15:22:00 EST, Height Start [...] capsule, 1 Refills, Maintenance, 11/23/19 15:26:00 EDT, [facility] #[id number], 160, cm, 03/22/19 15:22:00 EST, Height Start [...] 03/13/20 9:32:00 EST, Route to Pharmacy Electronically, [facility] #[id number], Partial fill upon patient request if the prescription is for a sc... Start Date: 03/13/20 Stop Date: 07/11/20 Status: Ordered warfarin 2.5 mg oral tablet 1 tablet, By Mouth, Daily, DIRECTED BY NURSE BASED ON INR RESULTS., # 30 tablet, 11 Refills, Maintenance, 09/18/19 16:11:00 EDT, [facility] #[id number], 160, cm, 03/22/19 15:22:00 EST, Height Start [...] Myalgia(Confirmed) Active Pre-syncope(Confirmed) Active Orthostatic hypotension(Confirmed) Active *[id number] Care Partn er Tracyyusuf Hurst(Confirmed) Active Pain of right sacroiliac joint(Confirmed) Active Lewy body dementia(Confirmed) Active Tinea cruris(Confirmed) Active Unintentional weight loss(Confirmed) Active Urinary incontinence(Confirmed) Active Vitamin D deficiency(Confirmed) Active Social History Social History Type Response Smoking Status Former smoker entered on: 08/26/15 Sex
--- OUTSIDE RECORDS SUMMARY | 2022-10-25 20:05 | XMS_ITS | Continuity of Care Document ---
Author Name Unknown Organization [facility] Address [address] [place] [address]- Care Team Providers Care Air Bag Builder Name Role Phone Destinee JIMENEZ, Roberta Merida Primary Care Physician [phone] Encounter [facility] Date(s): 11/08/19 - 12/08/[address] [address]- [facility] Allergies, Adverse Reactions, Alerts [...] mL, 11 Refills, Maintenance, 10/03/19 11:19:00 EDT, [facility] #[id number], 1 drops Eyes, Both 3 times a [...] mL, 3 Refills, Maintenance, 10/04/19 11:21:00 EDT, [facility] #[id number], 30, 15 mL By Mouth Daily,PRN: NEEDED FOR CONSTIPATION, 160, cm, 03/22/19 15:22:00 EST, Height Start Date: 10/04/19 Status: Ordered levothyroxine 75 mcg (0.075 mg) oral tablet 1 tablet = 75 mcg, By Mouth, Daily, increase in dose, # 90 tablet, 1 Refills, Maintenance, 11/07/2009:50:00 EDT, Tablet, [facility] #[id number], 160, cm, 03/22/19 15:22:00 EST, Height Start [...] capsule, 1 Refills, Maintenance, 11/23/19 15:26:00 EDT, [facility] #[id number], 160, cm, 03/22/19 15:22:00 EST, Height Start Date: 11/23/19 Status: Ordered warfarin 2.5 mg oral tablet 1 tablet, By Mouth, Daily, DIRECTED BY NURSE BASED ON INR RESULTS., # 30 tablet, 11 Refills, Maintenance, 09/18/19 16:11:00 EDT, [facility] #[id number], 160, cm, 03/22/19 15:22:00 EST, Height Start [...] back pain(Confirmed) Active Hypotension(Confirmed) Active Myalgia(Confirmed) Active *[id number]-[facility] Partn christie- Vimal Mcfarland(Confirmed) Active Pain of right sacroiliac joint(Confirmed) Active Lewy body dementia(Confirmed) Active Tinea cruris(Confirmed) Active Urinary incontinence(Confirmed) Active Vitamin D deficiency(Confirmed) Active Social History Social History Type Response Smoking Status Former smoker entered on: 08/26/15 Sex
--- OUTSIDE RECORDS SUMMARY | 2022-10-25 20:05 | XMS_ITS | Continuity of Care Document ---
Author Name Unknown Organization [facility] Address [address] [place] [address]- Care Team Providers Care Relay Worker Name Role Phone Destinee JIMENEZ, Roberta Merida Primary Care Physician Encounter [facility] Date(s): 11/09/19 - 12/09/[address] [address]- [facility] Allergies, Adverse Reactions, Alerts [...] mL, 11 Refills, Maintenance, 10/03/19 11:19:00 EDT, [facility] #[id number], 1 drops Eyes, Both 3 times a [...] mL, 3 Refills, Maintenance, 10/04/19 11:21:00 EDT, [facility] #[id number], 30, 15 mL By Mouth Daily,PRN: NEEDED FOR CONSTIPATION, 160, cm, 03/22/19 15:22:00 EST, Height Start Date: 10/04/19 Status: Ordered levothyroxine 75 mcg (0.075 mg) oral tablet 1 tablet = 75 mcg, By Mouth, Daily, increase in dose, # 90 tablet, 1 Refills, Maintenance, 11/07/2009:50:00 EDT, Tablet, [facility] #[id number], 160, cm, 03/22/19 15:22:00 EST, Height Start [...] capsule, 1 Refills, Maintenance, 11/23/19 15:26:00 EDT, [facility] #[id number], 160, cm, 03/22/19 15:22:00 EST, Height Start Date: 11/23/19 Status: Ordered warfarin 2.5 mg oral tablet 1 tablet, By Mouth, Daily, DIRECTED BY NURSE BASED ON INR RESULTS., # 30 tablet, 11 Refills, Maintenance, 09/18/19 16:11:00 EDT, [facility] #45123, 160, cm, 03/22/19 15:22:00 EST, Height Start [...] back pain(Confirmed) Active Hypotension(Confirmed) Active Myalgia(Confirmed) Active *[id number]-[facility] Partn christie- Vimal Mcfarland(Confirmed) Active Pain of right sacroiliac joint(Confirmed) Active Lewy body dementia(Confirmed) Active Tinea cruris(Confirmed) Active Urinary incontinence(Confirmed) Active Vitamin D deficiency(Confirmed) Active Social History Social History Type Response Smoking Status Former smoker entered on: 08/26/15 Sex
--- OUTSIDE RECORDS SUMMARY | 2022-10-25 20:05 | XMS_ITS | Continuity of Care Document ---
Author Name Unknown Organization [facility] Address [address] [place] [address]- Care Team Providers Care Energy Scheduler Name Role Phone Roberta Felipe NP Primary Care Physician Encounter [facility] Date(s): 06/30/20 - 07/30/[address] [id number] Allergies, Adverse Reactions, Alerts Substance [...] Given 1Result Comment: Administered by Dalia Olguin HOT WORKER 2Result Comment: incorrect brand entered 3Admin Note: VIS dated 09/13/11 4Admin Note: VIS dated 12/17/08 5Admin Note: VIS dated 04/03/11 Medications apixaban 2.5 mg oral tablet 1 tablet = 2.5 mg, By Mouth, 2 times a day, Transitioning from warfarin to apixaban, # 60 tablet, 11 Refills, Maintenance, 06/24/20 14:40:00 EDT, Tablet, [facility] #[id number], Partial fill upon patient request if the [...] 3 Refills, Maintenance, 05/19/20 14:56:00 EST, Tablet, [facility] #[id number], Partial fill upon patient request if the prescriptionis for a schedule II opioid drug., 160, cm, ... Start Date: 05/19/20 Stop Date: 09/16/20 Status: Ordered lidocaine 4% mucous membrane solution 1 application, Topically, 2 times a day, PRN Pain , Mild, # 1 each, 0 Refills, Maintenance, 05/22/20 16:43:00 EST, [facility] #[id number], Partial fill upon patient request if the prescription is for a schedule II opioid drug., 1 application Topi... Start Date: 05/22/20 Status: Ordered midodrine 5 mg oral tablet 5 mg, 1, tablet, By Mouth, 3 times a day, lower dose tablet, # 90 tablet, Refills 3, Tot. Refills 3, Maintenance, 06/23/20 14:16:00 EDT, Route to Pharmacy Electronically, [facility] #[id number],Partial fill upon patient request if the prescripti... [...] capsule, 0 Refills, Maintenance, 06/23/20 8:58:00 EDT, [facility] #[id number], 160, cm, 05/21/20 9:12:00 EST, Height, 57.86, kg, 04/12/20 23:44:00 EST, Dry Weight Start Date: 06/23/20 Status: Ordered traZODone 50 mg oral tablet 2, tablet, By Mouth, Daily at bedtime, # 60 tablet, Refills 3, Tot. Refills 0, Maintenance, 07/15/20 10:03:00 EDT, Route to Pharmacy Electronically, [facility] #[id number], 160, cm, 05/21/20 9:12:00 EST, Height, 57.86, [...] Myalgia(Confirmed) Active Pre-syncope(Confirmed) Active Orthostatic hypotension(Confirmed) Active *[id number] Care Partn er Tracy Hurst(Confirmed) Active Pain of right sacroiliac joint(Confirmed) Active Lewy body dementia(Confirmed) Active Tinea cruris(Confirmed) Active Unintentional weight loss(Confirmed) Active Urinary incontinence(Confirmed) Active Vitamin D deficiency(Confirmed) Active Social History Social History Type Response Smoking Status Former smoker entered on: 08/26/15 Sex
--- NOTE | 2022-10-25 20:23 | ED.MALEGU ---
HPI - Male Genitourinary General Chief complaint: Urogenital-Male Stated complaint: catheter issue Time Seen by Provider: 10/25/22 18:32 Source: family (Son) and american sign language interpreter Mode of arrival: EMS History of Present Illness HPI Narrative: 82-year-old male was brought in via EMS by his son who is very upset that his father's Miller catheter was supposed to have been discontinued at [facility] prior to discharge this afternoon. The son had instructed EMS to bring his father back to [facility] and when they called the son states that [facility] instructed the ambulance to come to [facility]. Related Data Home Medications Medication Instructions Recorded Confirmed levothyroxine 75 mcg tablet 1 tab PO DAILY 09/21/20 10/14/20 midodrine 5 mg tablet 1 tab PO TID 09/21/20 10/14/20 omeprazole 40 mg capsule,delayed 1 cap PO DAILY 09/21/20 10/14/20 release trazodone 50 mg tablet 2 tab PO BEDTIME 09/21/20 10/14/20 apixaban 2.5 mg tablet (Eliquis) 1 tab PO BID 10/14/20 10/14/20 levetiracetam 750 mg tablet 1 tab PO BID 10/14/20 10/14/20 Allergies Allergy/AdvReac Type Severity Reaction Status Date / Time Penicillins [PENICILLINS] Allergy Unknown UNKNOWN Verified 09/21/20 22:16 Review of Systems Review of Systems: [place] positives and negatives as stated in HPI PMFSH Past Medical History Source: nursing notes reviewed Medical History Acute blood loss anemia Acute GI bleeding Afib Anemia Chronic GERD Dementia Hypothyroid Kidney disease Microscopic hematuria Orthostatic hypotension Social History Social History Household Members: Family and Children Housing: House Unable to assess alcohol history related to: Unable to respond Alcohol intake: never Patient Tobacco Use Status: Tobacco use Unknown Smoked in Last 30 Days: No Use of substances other than those prescribed or required for medical reasons: No Advance Directives: Yes Advance Directives on File: Yes Advance Directives Date on File: 09/22/20 service: No Physical Exam Vital Signs: Vital Signs: BMI result Body Mass Index 27.5 VITAL SIGNS: Reviewed. GENERAL: Well developed, well nourished, in no acute distress. HEAD: Normocephalic/atraumatic, EYES: PERRLA, EOMI EARS: Ext canals without abnormality NOSE: Nares patent bilateral OROPHARYNX: no oral lesions noted, posterior pharynx clear NECK: Supple, no adenopathy LUNGS: Normal breath sounds. No adventitious sounds or accessory muscle use. CARDIOVASCULAR: Regular rate and rhythm without noted murmurs ABDOMEN: Soft, non-tender, non-distended with bowel sounds. : Miller catheter with draining clear yellow urine MUSCULOSKELETAL: No tenderness, deformities, or effusions noted on gross inspection. EXTREMITIES: No cyanosis, clubbing or edema. SKIN: Inspection of the skin reveals no rashes NEUROLOGIC: Dementia and oriented x 1, chronically contracted Medical Decision Making Medical Decision Making MDM Narrative: 82-year-old male is brought in by his son for Miller catheter removal. I requested records from [facility] and I see nothing in the review of problem list on the discharge paperwork to indicate any medical reason for the Miller catheter to be in place. In addition the son himself with whom the patient lives adamantly states that there is no reason for the Miller catheter that his father's never required 1 and that there were no issues prior to the patient being admitted at [facility] for 4 days. Patient's son is adamantly requesting removal of the Miller catheter. External Record Review External record reviewed: Outpatient record and Outside ED record Chronic Conditions Patient?s care impacted by: Other Dementia Discharge Plan Discharge Clinical Impression: Encounter for Miller catheter removal Patient Disposition: Home, Self-Care Additional Instructions: 1. Reanudar todos los medicamentos caseros seg?n lo prescrito. 2. Si mary padre no akins tenido producci?n de orina en las pr?ximas 6 a 8 horas, ser? importante que regrese a esta katja de emergencias o a la katja de emergencias de [facility]. 1. Resume all home medications as prescribed. 2. If your father has had no urine output in the next 6-8 hours it will be important for him to return to either this emergency room or [facility] emergency room. Prescriptions: No Action trazodone 50 mg tablet 2 tab PO BEDTIME midodrine 5 mg tablet 1 tab PO TID omeprazole 40 mg capsule,delayed release(DR/EC) 1 cap PO DAILY levothyroxine 75 mcg tablet 1 tab PO DAILY levetiracetam 750 mg tablet 1 tab PO BID Eliquis 2.5 mg tablet 1 tab PO BID Print Language: Belgian
--- NOTE | 2022-10-25 21:06 | PC.NURSE ---
On visual assessment, this Rn determined that pt does not have a orona catheter in place, but rather a condom catheter. Machine Container Was[employer] services contacted to determine family wishes for pt.
--- NOTE | 2022-10-25 21:53 | PC.NURSE ---
Condom catheter removed without complications per son. Son reassured this RN that home care includes brennen care.
[2022-10-25 22:33] VITALS: BP 120/82; PULSE 62; RESP 16; TEMP 36.5; O2SAT 96
== END 2022-10-25 22:48 | disposition home or self-care (01) ==
PROVIDERS: Emergency Provider Student in an Organized Health Care Education/Training Program
DX: Z46.6 Encounter for fitting and adjustment of urinary device (principal)
CPT/HCPCS: 99282; 99284

== ENCOUNTER 2023-08-03 16:41 | Emergency (ER) | payer MEDICARE, SELFPAY ==
--- NOTE | ~2023-08-03 | XR_ITS ---
EXAMINATION: XR CHEST CLINICAL INFORMATION: Chest pain COMPARISON: 10/14/2020 TECHNIQUE: Frontal view of the chest was obtained. FINDINGS: No significant abnormality is noted involving the heart, lungs, mediastinum, bony thorax or soft tissues. XR/XR chest 1V IMPRESSION: Unremarkable examination.
[2023-08-03 16:46] VITALS: BP 194/110; PULSE 88; O2SAT 98
--- NOTE | 2023-08-03 16:51 | ECG_ITS ---
Test Reason : CP Blood Pressure : / mmHG Vent. Rate : 070 BPM Atrial Rate : 070 BPM P-R Int : 152 ms QRS Dur : 064 ms QT Int : 398 ms P-R-T Axes : 083 028 060 degrees QTc Int : 429 ms Sinus rhythm with Premature atrial complexes Low voltage QRS Borderline ECG No previous ECGs available Referred By: Melissa Brown Electronically Signed By:SAM MCARTHUR MD
[2023-08-03 17:08] VITALS: BP 181/95; PULSE 77; RESP 20; TEMP 36.6; O2SAT 98; BMI 19.1
[2023-08-03 17:29] LABS: Appearance Urine Clear; Color Urine Yellow; Glucose Urine UA Negative (Negative); Leukocyte Esterase Urine Negative (Negative); Nitrite Urine Negative (Negative); PH 6.5 (5.0-9.0); Specific Gravity - Urine 1.025 (1.005-1.025); UMIC TRIGGER UACC YES; Urine Blood Moderate (2+) (Negative); Urine Ketones Trace mg/dL (Negative); Urine Protein Trace mg/dL (Neg-Trace)
[2023-08-03 17:38] LABS: MANUAL DIFF FLAG NO
[2023-08-03 17:38] LABS: Bacteria Urine None Seen (None Seen); Hyaline Casts Urine 0-2 /LPF (0-2); RBC Urine >20 /HPF (0-2); Squamous Epithelial Cell Urine 0-2 /HPF (0-2); UACC Culture Trigger YES
[2023-08-03 17:44] LABS: Basophils Percent Auto 0.6 % (0-2); Eosinophils Absolute Auto 0.1 X10*3/uL (0.0-0.4); Eosinophils Percent Auto 1.9 % (0-4); Hematocrit 27.1 % (42.0-52.0); Hemoglobin 8.3 g/dl (14.0-18.0); Imm Gran Abs Auto 0.02 X10*3/uL (0.00-0.03); Imm Gran Pct Auto 0.3 % (0.0-0.4); Lymphocytes Absolute Auto 1.7 X10*3/uL (1.2-4.9); Lymphocytes Percent Auto 25.5 % (20-40); Mean Corpuscular HGB Conc 30.6 g/dl (31.0-36.0); Mean Corpuscular Hemoglobin 27.3 pg (27.0-33.0); Mean Corpuscular Volume 89.1 fL (80.0-98.0); Mean Platelet Volume 11.9 fL (9.4-12.4); Monocytes Absolute Auto 0.6 X10*3/uL (0.1-1.2); Monocytes Percent Auto 8.6 % (2-11); Neutrophils Absolute Auto 4.3 x10*3/uL (2.0-8.3); Neutrophils Percent Auto 63.1 % (45-73); Platelet Count 190 X10*3/uL (160-400); Red Blood Count 3.04 X10*6/uL (4.60-5.80); Red Cell Distribution Width 17.7 % (11.0-16.0); White Blood Count 6.7 X10*3/uL (4.8-10.8)
[2023-08-03 17:51] LABS: Prothrombin Time 11.8 SEC (11.1-13.3)
[2023-08-03 17:58] LABS: IDNOW Serial# 08D9AD1C; Influenza A Negative (Negative); Influenza B2 Negative (Negative)
[2023-08-03 17:59] LABS: COVID-19 Test Negative (Negative); IDNOW Serial# 152EDE1D
[2023-08-03 18:04] LABS: Lactic Acid 1.8 mmol/L (0.5-2.0)
[2023-08-03 18:15] LABS: Troponin-I High Sensitivity 12.5 ng/L (<3.5-35.0)
--- OUTSIDE RECORDS SUMMARY | 2023-08-03 18:30 | XMS_ITS | Continuity of Care Document ---
Author Organization [facility] Address [address] [facility], [address], [address] [place] [address]- Care Team Providers Care Concrete Mixer Operator Helper Name Role Phone Destinee JIMENEZ, Roberta Merida Primary Care Physician Encounter [facility] Date(s): 11/16/22 - 12/16/22 [facility] [address] [facility], [address], [address] [place] [id number] Attending Physician: Hiren Blackburn Admitting Physician: Hiren Blackburn Referring Physician: AdmtrHiren Allergies, Adverse Reactions, Alerts Substance Reaction Severity Status penicillin rash Active Immunizations Given and Recorded Vaccine Date Status Refusal Reason [id number] 12y+ bivalent booster vax 03/05/22 Given influenza [...] 01/04/14 Give n influenza virus vaccine, inactivated 12/13/12 Give n influenza virus vaccine, inactivated 1 05/31/12 Gi davonte SARS-CoV-2 mRNA ([id number]) vax 06/19/21 Given SARS-CoV-2 (COVID-19) mRNA BNT-162b2 vac 05/17/20 Given SARS-CoV-2 (COVID-19) mRNA BNT-162b2 vac 2 04/26/20 Given pneumococcal 13-valent vaccine 08/31/16 Given pneumococcal 23-valent vaccine 3 05/31/12 Given tetanus/diphtheria/pertussis, acel(Tdap) 4 05/31/12 Given 1Admin Note: VIS dated 09/13/11 2Result Comment: Administered by Dalia Olguin SOCIAL WORK PROGRAM COORDINATOR 3Admin Note: VIS dated 12/17/08 4Admin Note: VIS dated 04/03/11 Medications Artificial Tears preserved solution 1 drops, Eyes, Both, 4 times a day, PRN Dry Eyes, # 10 mL, 11 Refills, Maintenance, 01/26/22 14:13:00 EST, Ophth Solution, [facility] #[id number], Partial fill upon patient request if the [...] tablet, 5 Refills, Maintenance, 08/26/22 16:55:00 EDT, [facility] #[id number], Please print in urdu, 160, cm, 06/18/22 14:50:00 EDT, Height Start [...] Gm, 1 Refills, Maintenance, 06/18/2314:05:00 EDT, Cream, [facility] #[id number], Partial fill upon patient request if the prescription is for a schedule II opioid drug., 1 applicatio... Start Date: 06/18/22 Status: Ordered docusate sodium 100 mg oral capsule 100 mg, 1, capsule, By Mouth, 2 times a day, PRN, # 60 capsule, Refills 3, Tot. Refills 3, Maintenance, for constipation, 01/26/22 14:13:00 EST, Route to Pharmacy Electronically, [facility]#[id number], Partial fill upon patient request if the pr... Start Date: 01/26/22 Status: Ordered Eucerin Eczema Relief topical cream 1 application, Topically, 2 times a day, # 240 Gm, 5 Refills, Maintenance, 01/15/21 16:05:00 EDT, [facility] #[id number], Partial fill upon patient request if the prescription is for a schedule II opioid drug., 1 application Topically 2 times a d... Start Date: 01/15/21 Status: Ordered guaiFENesin 400 mg oral tablet 1 tablet = 400 mg, By Mouth, Every 4 hours, PRN as needed for congestion and cough, # 30 tablet, 1 Refills, Maintenance, 08/27/21 13:40:00 EDT, Tablet, [facility] #[id number], Partial fill upon patient request if the [...] 2 Refills, Maintenance, 08/17/21 13:14:00 EDT, Syrup, [facility] #[id number], 15 mL By Mouth Daily,PRN:as needed for [...] Supply Start Date: 10/12/22 Status: Ordered levETIRAcetam 750 mg oral tablet 1 tablet = 750 mg, By Mouth, 2 times a day, # 60 tablet, 5 Refills, Maintenance, 11/16/22 8:09:00 EDT, [facility] #[id number], Partial fill upon patient request if the prescription is for a schedule II opioid drug., 164, cm, 10/25/22 13:5... Start Date: 11/16/22 Stop Date: 05/15/23 Status: Ordered levothyroxine 75 mcg (0.075 mg) oral tablet 1 tablet = 75 mcg, By Mouth, Daily, TK 1 T PO D, # 90 tablet, 1 Refills, Maintenance, 04/21/22 9:43:00 EST, [facility] #[id number], Partial fill upon patient request if the prescription is for a schedule II opioid drug., 160, cm, 02/06/2... Start Date: 04/21/22 Status: Ordered lidocaine 4% mucous membrane solution 1 application, Topically, 2 times a day, PRN Pain , Mild, # 1 each, 0 Refills, Maintenance, 05/22/20 16:43:00 EST, [facility] #[id number], Partial fill upon patient request if the prescription is for a schedule II opioid drug., 1 application Topi... Start Date: 05/22/20 Status: Ordered midodrine 5 mg oral tablet 1, tablet, By Mouth, 3 times a day, # 90 tablet, Refills 3, Tot. Refills 3, Maintenance, 10/27/21 15:24:00 EDT, Route to Pharmacy Electronically, [facility] #[id number], 160, cm, 08/27/21 13:11:00 EDT, Height, 57.86, kg, 04/12/20 23:44:00 ESTDr... Start Date: 10/27/21 Status: Ordered Nutritional Supplements See Instructions, # 90 each, Refills 11, Tot. 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 [id number], G31.83, 07/09/22 17:02:00 EDT, Supply Start Date: 07/09/22 Status: Ordered omeprazole 40 mg oral enteric coated capsule 1 capsule, By Mouth, Daily, # 90 capsule, 1 Refills, 09/15/22 16:21:00 EDT, [facility] #[id number], 160, cm, 06/18/22 14:50:00 EDT, Height Start [...] 05/03/22 11:14:00 EST, Route to Pharmacy Electronically, [facility] #[id number], 160, cm, 04/19/22 17:27:00 EST, Height Start Date: 05/03/22 Status: Ordered Twin size hospital bed mattress Twin size hospital bed mattress, See Instructions, # 1 each, Refills 0, Tot. Refills 0, Maintenance, Use daily, FANNIE 99 Bedbound: Z74.01 Lewy Body Dementia: G31.83, 10/26/22 15:20:00 EDT, Supply Start Date: 10/26/22 Status: Ordered Urinal See Instructions, # 3 each, Refills 0, Tot. Refills 0, Maintenance, Use as needed for urinating. 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 Z74.01, G31.83, 05/22/20 17:15:00 EST, Supply Start Date: 05/22/20 Status: Ordered Washable Water Manager Bed Pads Washable Water Manager Bed Pads, See Instructions, # 4 [...] Pre-syncope Confirmed Active Orthostatic hypotension Confirmed Active *[id number] Plastic Fabricator Yi Campos Confirmed Active Pain of right sacroiliac joint Confirmed Active Seizures Confirmed Active Lewy body dementia Confirmed Active Tinea cruris Confirmed Active Unintentional weight loss Confirmed Active Urinary incontinence Confirmed Active Vitamin D deficiency Confirmed Active Social History Social History Type Response Smoking Status Former smoker entered on: 08/26/15 Sex Patient Care team information Care Team Personnel Name: Matilde Mahmood RN Position: [facility] RN Member Role: Primary Care Nurse Name: Roberta Felipe NP Position: [facility] PCO Associate Professional Member Role: PCP Address: Address: [address] [place] [address] Name: Maci Kruse RN Position: [facility] SN RN Member Role: Primary Care Nurse Name: Kandis Lehman RN Position: [facility] RN Member Role: Primary Care Nurse Name: Lidya Lyons RN Position: [facility] RN Member Role: Primary Care Nurse Name: Lyudmila Ortez RN Position: [facility] RN Member Role: Primary Care Nurse Name: Lilo Maldonado RN Position: [facility] RN Member Role: Primary Care Nurse Name: Anuj Murillo RN Position: [facility] RN Member Role: Primary Care Nurse Name: Jasmin lOiva Position: [facility] Outreach Member Role: Lifetime Consulting Physician Name: Suzanne Celeste RN Position: [facility] RN Member Role: Primary Care Nurse Name: Lily Solis RN Position: [facility] Onco RN Member Role: Primary Care Nurse Name: Adela Tadeo RN Position: [facility] RN Member Role: Primary Care Nurse Name: Nancy Morrow RN Position: [facility] RN Member Role: Primary Care Nurse Name: Etta Dewitt RN Position: [facility] RN Member Role: Primary Care Nurse Care Team Related Persons Name: JESSIKA HEARD Address: home [address] [address] Name: JESSICA JOSUE Address: home [address] [place] [address] Name: CARLOS CEJA Address: home [address]
[2023-08-03 18:32] LABS: Alanine Aminotransferase 7 U/L (0-40); Alkaline Phosphatase 95 U/L (39-117); Anion Gap 13 (12-20); Aspartate Amino Transferase 17 U/L (5-37); Bilirubin Direct < 0.2 mg/dL (0.0-0.5); Bilirubin Total 0.1 mg/dL (0.0-1.0); Blood Urea Nitrogen 32 mg/dL (9-16); Calcium 8.6 mg/dL (8.4-10.2); Carbon Dioxide 24 mmol/L (22-29); Chloride 109 mmol/L (96-108); Creatinine Clr Calc Pharmacy 24.9; Estimated Glomerular Filt Rate 44; Glucose Random 96 mg/dL (60-115); Magnesium 2.2 mg/dL (1.6-2.6); Potassium 5.1 mmol/L (3.3-5.1); Sodium 141 mmol/L (135-145); Total Protein 6.4 g/dL (6.5-8.0)
--- OUTSIDE RECORDS SUMMARY | 2023-08-03 18:32 | XMS_ITS | Continuity of Care Document ---
Author Organization [facility] ter Address [address] [place] [id number]- Care Team Providers Care Shear Tender Name Role Phone Roberta Felipe NP Primary Care Physician [phone] Encounter [facility] Date(s): 05/27/23 - 07/02/[address] [address] Attending Physician: Roberta Felipe NP Admitting Physician: Roberta Felipe NP Referring Physician: Roberta Felipe NP Allergies, Adverse Reactions, Alerts Substance Reaction Severity Status penicillin rash Active Immunizations Given and Recorded Vaccine Date Status Refusal Reason [id number] 12y+ bivalent booster vax 03/05/22 Given influenza [...] inactivated 1 05/31/12 Gi davonte SARS-CoV-2 mRNA (fenpise-lsbm-tzaje) vax 06/19/21 Given SARS-CoV-2 (COVID-19) mRNA BNT-162b2 vac 05/17/20 Given SARS-CoV-2 (COVID-19) mRNA BNT-162b2 vac 2 04/26/20 Given pneumococcal 13-valent vaccine 08/31/16 Given pneumococcal 23-valent vaccine 3 05/31/12 Given tetanus/diphtheria/pertussis, acel(Tdap) 4 05/31/12 Given 1Admin Note: VIS dated 09/13/11 2Result Comment: Administered by Dalia Olguin VESSEL SCRAPPER HELPER 3Admin Note: VIS dated 12/17/08 4Admin Note: VIS dated 04/03/11 Medications Artificial Tears preserved solution 1 drops, Eyes, Both, 4 times a day, PRN Dry Eyes, # 10 mL, 11 Refills, Maintenance, 01/26/22 14:13:00 EST, Ophth Solution, [facility] #[id number], Partial fill upon patient request if the [...] tablet, 5 Refills, Maintenance, 08/26/22 16:55:00 EDT, [facility] #[id number], Please print in yemeni, 160, cm, 06/18/22 14:50:00 EDT, Height Start [...] Gm, 1 Refills, Maintenance, 06/18/2314:05:00 EDT, Cream, [facility] #[id number], Partial fill upon patient request if the prescription is for a schedule II opioid drug., 1 applicatio... Start Date: 06/18/22 Status: Ordered docusate sodium 100 mg oral capsule 100 mg, 1, capsule, By Mouth, 2 times a day, PRN, # 60 capsule, Refills 3, Tot. Refills 3, Maintenance, for constipation, 01/26/22 14:13:00 EST, Route to Pharmacy Electronically, [facility][id number], Partial fill upon patient request if the pr... Start Date: 01/26/22 Status: Ordered Eucerin Eczema Relief topical cream 1 application, Topically, 2 times a day, # 240 Gm, 5 Refills, Maintenance, 01/15/21 16:05:00 EDT, [facility] #[id number], Partial fill upon patient request if the prescription is for a schedule II opioid drug., 1 application Topically 2 times a d... Start Date: 01/15/21 Status: Ordered gabapentin 100 mg oral capsule 100 mg, 1, capsule, By Mouth, 2 times a day, # 60 capsule, Refills 2, Tot. Refills 2, Maintenance, 05/11/23 14:31:00 EST, Route to Pharmacy Electronically, [facility] #[id number], Partial fill upon patient request if the prescription is for a genna... Start Date: 05/11/23 Status: Ordered guaiFENesin 400 mg oral tablet 1 tablet = 400 mg, By Mouth, Every 4 hours, PRN as needed for congestion and cough, # 30 tablet, 1 Refills, Maintenance, 08/27/21 13:40:00 EDT, Tablet, [facility] #[id number], Partial fill upon patient request if the [...] 2 Refills, Maintenance, 08/17/21 13:14:00 EDT, Syrup, [facility] #[id number], 15 mL By Mouth Daily,PRN:as needed for [...] tablet, 5 Refills, Maintenance, 11/16/22 8:09:00 EDT, [facility][id number], Partial fill upon patient request if the prescription is for a schedule II opioid drug., 164, cm, 10/25/22 13:5... Start Date: 11/16/22 Stop Date: 05/15/23 Status: Ordered levothyroxine 75 mcg (0.075 mg) oral tablet 1 tablet = 75 mcg, By Mouth, Daily, TK 1 T PO D, # 90 tablet, 1 Refills, Maintenance, 03/23/23 8:46:00 EST, Tablet, [facility] #[id number], Partial fill upon patient request if the prescription is for a schedule II opioid drug., 164, cm, ... Start Date: 03/23/23 Status: Ordered lidocaine 4% mucous membrane solution 1 application, Topically, 2 times a day, PRN Pain , Mild, # 1 each, 0 Refills, Maintenance, 05/22/20 16:43:00 EST, [facility] #[id number], Partial fill upon patient request if the prescription is for a schedule II opioid drug., 1 application Topi... Start Date: 05/22/20 Status: Ordered midodrine 5 mg oral tablet 1, tablet, By Mouth, 3 times a day, # 90 tablet, Refills 3, Tot. Refills 3, Maintenance, 10/27/21 15:24:00 EDT, Route to Pharmacy Electronically, [facility] #[id number], 160, cm, 08/27/21 13:11:00 EDT, Height, 57.86, kg, 04/12/20 23:44:00 ESTDr... Start Date: 10/27/21 Status: Ordered Nutritional Supplements See Instructions, # 90 each, Refills 11, Tot. Refills 11, Maintenance, 350 kcal, 8oz, q 8 hrs by mouth Ensure Plus Vanilla and strawberry, 1 can TID by mouth, for unintended weight loss related to advanced dementia R63.4, G31.83, 06/22/23 8:07:00 EDT... Start Date: 06/22/23 Status: Ordered omeprazole 40 mg oral enteric coated capsule 1 capsule, By Mouth, Daily, # 90 capsule, 1 Refills, Maintenance, 04/20/23 19:37:00 EST, [facility] #[id number], 164, cm, 12/27/22 17:03:00 EDT, Height Start Date: 04/20/23 Status: Ordered oral care swabs oral care swabs, See Instructions, # 200 each, Refills 11, Tot. Refills 11, Maintenance, Use up to 8 per day to moisten the mouth due to dry mouth and dementia R68.2, G31.83, 06/01/22 12:10:00 EDT, Supply Start Date: 06/01/22 Status: Ordered traZODone 50 mg oral tablet 2, tablet, By Mouth, Daily at bedtime, # 60 tablet, Refills 5, Tot. Refills 5, 03/23/23 8:47:00 EST, Route to Pharmacy Electronically, [facility] #[id number], 164, cm, 12/27/22 17:03:00 EDT, Height Start Date: 03/23/23 Status: Ordered [facility] bed mattress [facility] bed mattress, See Instructions, # 1 each, [...] Supply Start Date: 05/22/20 Status: Ordered Washable [employer]ace [employer] Text[employer] Restorer Bed Pads Washable [employer]ace [employer] Text[employer] Restorer Bed Pads, See Instructions, # 4 each, [...] Pre-syncope Confirmed Active Orthostatic hypotension Confirmed Active *[id number] Behavior Management Specialist Yi Campos Confirmed Active Pain of right sacroiliac joint Confirmed Active Seizures Confirmed Active Lewy body dementia Confirmed Active Tinea cruris Confirmed Active Unintentional weight loss Confirmed Active Urinary incontinence Confirmed Active Vitamin D deficiency Confirmed Active Social History Social History Type Response Smoking Status Former smoker entered on: 08/26/15 Sex Patient Care team information Care Team Personnel Name: Adela Vu RN Position: [facility] RN Member Role: Primary Care Nurse Name: Matilde Mahmood RN Position: [facility] RN Member Role: Primary Care Nurse Name: Roberta Felipe NP Position: [facility] PCO Associate Professional Member Role: PCP Address: Address: [address] [place] [address] Name: Maci Kruse RN Position: [facility] SN RN Member Role: Primary Care Nurse Name: Lidya Lyons RN Position: [facility] RN Member Role: Primary Care Nurse Name: Lyudmila Ortez RN Position: [facility] RN Member Role: Primary Care Nurse Name: Lilo Maldonado RN Position: [facility] RN Member Role: Primary Care Nurse Name: Anuj Murillo RN Position: [facility] RN Member Role: Primary Care Nurse Name: Jasmin Oliva Position: [facility] Outreach Member Role: Lifetime Consulting Physician Name: Suzanne Celeste RN Position: [facility] RN Member Role: Primary Care Nurse Name: Lily Solis RN Position: [facility] Onco RN Member Role: Primary Care Nurse Name: Nancy Morrow RN Position: [facility] RN Member Role: Primary Care Nurse Name: Etta Dewitt RN Position: [facility] RN Member Role: Primary Care Nurse Care Team Related Persons Name: JESSIKA HEARD Address: [address] [address] Name: JESSICA JOSUE Address: [address] [place] [address] Name: CARLOS CEJA Address: home [address] [address]
--- OUTSIDE RECORDS SUMMARY | 2023-08-03 18:33 | XMS_ITS | Continuity of Care Document ---
Author Organization [facility] Address [address] [place] [address]- Care Team Providers Care Room Service Manager Name Role Phone Destinee JIMENEZ, Roberta Merida Primary Care Physician Encounter [facility] [id number] Date(s): 12/27/22 - 01/26/[address] [address]- Attending Physician: Hiren Blackburn Admitting Physician: AdmHiren thomas Referring Physician: AdmtrHiren Allergies, Adverse Reactions, Alerts Substance Reaction Severity Status penicillin rash Active Immunizations Given and Recorded Vaccine Date Status Refusal Reason [id number] 12y+ bivalent booster vax 03/05/22 Given influenza [...] inactivated 1 05/31/12 Gi davonte SARS-CoV-2 mRNA (msdryzd-elqm-yqbay) vax 06/19/21 Given SARS-CoV-2 (COVID-19) mRNA BNT-162b2 vac 05/17/20 Given SARS-CoV-2 (COVID-19) mRNA BNT-162b2 vac 2 04/26/20 Given pneumococcal 13-valent vaccine 08/31/16 Given pneumococcal 23-valent vaccine 3 05/31/12 Given tetanus/diphtheria/pertussis, acel(Tdap) 4 05/31/12 Given 1Admin Note: VIS dated 09/13/11 2Result Comment: Administered by Dalia Olguin INTERNATIONAL ACCOUNTANT 3Admin Note: VIS dated 12/17/08 4Admin Note: VIS dated 04/03/11 Medications Artificial Tears preserved solution 1 drops, Eyes, Both, 4 times a day, PRN Dry Eyes, # 10 mL, 11 Refills, Maintenance, 01/26/22 14:13:00 EST, Ophth Solution, [facility] #[id number], Partial fill upon patient request if the [...] tablet, 5 Refills, Maintenance, 08/26/22 16:55:00 EDT, [facility] #[id number], Please print in sami, 160, cm, 06/18/22 14:50:00 EDT, Height Start [...] Gm, 1 Refills, Maintenance, 06/18/2314:05:00 EDT, Cream, [facility] #[id number], Partial fill upon patient request if the prescription is for a schedule II opioid drug., 1 applicatio... Start Date: 06/18/22 Status: Ordered docusate sodium 100 mg oral capsule 100 mg, 1, capsule, By Mouth, 2 times a day, PRN, # 60 capsule, Refills 3, Tot. Refills 3, Maintenance, for constipation, 01/26/22 14:13:00 EST, Route to Pharmacy Electronically, [facility][id number], Partial fill upon patient request if the pr... Start Date: 01/26/22 Status: Ordered Eucerin Eczema Relief topical cream 1 application, Topically, 2 times a day, # 240 Gm, 5 Refills, Maintenance, 01/15/21 16:05:00 EDT, [facility] #02605, Partial fill upon patient request if the prescription is for a schedule II opioid drug., 1 application Topically 2 times a d... Start Date: 01/15/21 Status: Ordered guaiFENesin 400 mg oral tablet 1 tablet = 400 mg, By Mouth, Every 4 hours, PRN as needed for congestion and cough, # 30 tablet, 1 Refills, Maintenance, 08/27/21 13:40:00 EDT, Tablet, [facility] #[id number], Partial fill upon patient request if the [...] 2 Refills, Maintenance, 08/17/21 13:14:00 EDT, Syrup, [facility] #[id number], 15 mL By Mouth Daily,PRN:as needed for [...] tablet, 5 Refills, Maintenance, 11/16/22 8:09:00 EDT, [facility][id number], Partial fill upon patient request if the prescription is for a schedule II opioid drug., 164, cm, 10/25/22 13:5... Start Date: 11/16/22 Stop Date: 05/15/23 Status: Ordered levothyroxine 75 mcg (0.075 mg) oral tablet 1 tablet = 75 mcg, By Mouth, Daily, TK 1 T PO D, # 90 tablet, 1 Refills, Maintenance, 04/21/22 9:43:00 EST, Tablet, [facility] #[id number], Partial fill upon patient request if the prescription is for a schedule II opioid drug., 160, cm, ... Start Date: 04/21/22 Status: Ordered lidocaine 4% mucous membrane solution 1 application, Topically, 2 times a day, PRN Pain , Mild, # 1 each, 0 Refills, Maintenance, 05/22/20 16:43:00 EST, [facility] #93751, Partial fill upon patient request if the prescription is for a schedule II opioid drug., 1 application Topi... Start Date: 05/22/20 Status: Ordered midodrine 5 mg oral tablet 1, tablet, By Mouth, 3 times a day, # 90 tablet, Refills 3, Tot. Refills 3, Maintenance, 10/27/21 15:24:00 EDT, Route to Pharmacy Electronically, [facility] #[id number], 160, cm, 08/27/21 13:11:00 EDT, Height, 57.86, kg, 04/12/20 23:44:00 EST, Start Date: 10/27/21 Status: Ordered Nutritional Supplements See Instructions, # 90 each, Refills 11, Tot. 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, 07/09/22 17:02:00 EDT, Supply Start Date: 07/09/22 Status: Ordered omeprazole 40 mg oral enteric coated capsule 1 capsule, By Mouth, Daily, # 90 capsule, 1 Refills, 09/15/22 16:21:00 EDT, [facility] #[id number], 160, cm, 06/18/22 14:50:00 EDT, Height Start [...] 05/03/22 11:14:00 EST, Route to Pharmacy Electronically, [facility] #[id number], 160, cm, 04/19/22 17:27:00 EST, Height Start Date: 05/03/22 Status: Ordered Twin size [facility] bed mattress Twin size [facility] bed mattress, See Instructions, # 1 each, [...] Supply Start Date: 05/22/20 Status: Ordered Washable [facility] Internal [facility] Doctor Bed Pads Washable [facility] Doctor Bed Pads, See Instructions, # 4 each, [...] Pre-syncope Confirmed Active Orthostatic hypotension Confirmed Active *[id number] Meatman Yi Campos Confirmed Active Pain of right sacroiliac joint Confirmed Active Seizures Confirmed Active Lewy body dementia Confirmed Active Tinea cruris Confirmed Active Unintentional weight loss Confirmed Active Urinary incontinence Confirmed Active Vitamin D deficiency Confirmed Active Social History Social History Type Response Smoking Status Former smoker entered on: 08/26/15 Sex Patient Care team information Care Team Personnel Name: Adela Vu RN Position: [facility] RN Member Role: Primary Care Nurse Name: Matilde Mahmood RN Position: [facility] RN Member Role: Primary Care Nurse Name: Roberta Felipe NP Position: [facility] PCO Associate Professional Member Role: PCP Address: Address: [address] [place] [address] Name: Maci Kruse RN Position: [facility] SN RN Member Role: Primary Care Nurse Name: Lidya Lyons RN Position: [facility] RN Member Role: Primary Care Nurse Name: Lyudmila Ortez RN Position: [facility] RN Member Role: Primary Care Nurse Name: Lilo Maldonado RN Position: [facility] RN Member Role: Primary Care Nurse Name: Anuj Murillo RN Position: [facility] RN Member Role: Primary Care Nurse Name: Jasmin Oliva Position: [facility] Outreach Member Role: Lifetime Consulting Physician Name: Suzanne Celeste RN Position: [facility] RN Member Role: Primary Care Nurse Name: Lily Solis RN Position: [facility] Onco RN Member Role: Primary Care Nurse Name: Nancy Morrow RN Position: [facility] RN Member Role: Primary Care Nurse Name: Etta Dewitt RN Position: [facility] RN Member Role: Primary Care Nurse Care Team Related Persons Name: JESSIKA HEARD Address: [address] [address] Name: JESSICA JOSUE Address: [address] [place] [address] Name: CARLOS CEJA Address: [address] [address]
--- OUTSIDE RECORDS SUMMARY | 2023-08-03 18:33 | XMS_ITS | Continuity of Care Document ---
Author Organization [facility] Address [address] [place] [address]- Care Team Providers Care Egg Candler Name Role Phone Destinee JIMENEZ, Roberta Merida Primary Care Physician [phone] Encounter [facility] Date(s): 10/08/22 - 11/07/[address] [address]- Allergies, Adverse Reactions, Alerts Substance Reaction Severity Status penicillin rash Active Immunizations Given and Recorded Vaccine Date Status Refusal Reason [id number] 12y+ bivalent booster vax 03/05/22 Given influenza [...] inactivated 1 05/31/12 Gi davonte SARS-CoV-2 mRNA (yhfqcnw-iiyu-xhghf) vax 06/19/21 Given SARS-CoV-2 (COVID-19) mRNA BNT-162b2 vac 05/17/20 Given SARS-CoV-2 (COVID-19) mRNA BNT-162b2 vac 2 04/26/20 Given pneumococcal 13-valent vaccine 08/31/16 Given pneumococcal 23-valent vaccine 3 05/31/12 Given tetanus/diphtheria/pertussis, acel(Tdap) 4 05/31/12 Given 1Admin Note: VIS dated 09/13/11 2Result Comment: Administered by Dalia Olguin WET SUIT GLUER 3Admin Note: VIS dated 12/17/08 4Admin Note: VIS dated 04/03/11 Medications Artificial Tears preserved solution 1 drops, Eyes, Both, 4 times a day, PRN Dry Eyes, # 10 mL, 11 Refills, Maintenance, 01/26/22 14:13:00 EST, Ophth Solution, [facility] #[id number], Partial fill upon patient request if the [...] tablet, 5 Refills, Maintenance, 08/26/22 16:55:00 EDT, [facility] #[id number], Please print in eritrean, 160, cm, 06/18/22 14:50:00 EDT, Height Start [...] Gm, 1 Refills, Maintenance, 06/18/2314:05:00 EDT, Cream, [facility] #[id number], Partial fill upon patient request if the prescription is for a schedule II opioid drug., 1 applicatio... Start Date: 06/18/22 Status: Ordered docusate sodium 100 mg oral capsule 100 mg, 1, capsule, By Mouth, 2 times a day, PRN, # 60 capsule, Refills 3, Tot. Refills 3, Maintenance, for constipation, 01/26/22 14:13:00 EST, Route to Pharmacy Electronically, [facility][id number], Partial fill upon patient request if the pr... Start Date: 01/26/22 Status: Ordered Eucerin Eczema Relief topical cream 1 application, Topically, 2 times a day, # 240 Gm, 5 Refills, Maintenance, 01/15/21 16:05:00 EDT, [facility] #73186, Partial fill upon patient request if the prescription is for a schedule II opioid drug., 1 application Topically 2 times a d... Start Date: 01/15/21 Status: Ordered guaiFENesin 400 mg oral tablet 1 tablet = 400 mg, By Mouth, Every 4 hours, PRN as needed for congestion and cough, # 30 tablet, 1 Refills, Maintenance, 08/27/21 13:40:00 EDT, Tablet, [facility] #70986, Partial fill upon patient request if the [...] 2 Refills, Maintenance, 08/17/21 13:14:00 EDT, Syrup, [facility] #[id number], 15 mL By Mouth Daily,PRN:as needed for [...] tablet, 5 Refills, Maintenance, 08/26/22 16:54:00 EDT, [facility] #45142, Partial fill upon patient request if the prescription is for a schedule II opioid drug., 160, cm, 06/18/22 14:... Start Date: 08/26/22 Status: Ordered levothyroxine 75 mcg (0.075 mg) oral tablet 1 tablet = 75 mcg, By Mouth, Daily, TK 1 T PO D, # 90 tablet, 1 Refills, Maintenance, 04/21/22 9:43:00 EST, Tablet, [facility] #[id number], Partial fill upon patient request if the prescription is for a schedule II opioid drug., 160, cm, ... Start Date: 04/21/22 Status: Ordered lidocaine 4% mucous membrane solution 1 application, Topically, 2 times a day, PRN Pain , Mild, # 1 each, 0 Refills, Maintenance, 05/22/20 16:43:00 EST, [facility] #[id number], Partial fill upon patient request if the prescription is for a schedule II opioid drug., 1 application Topi... Start Date: 05/22/20 Status: Ordered midodrine 5 mg oral tablet 1, tablet, By Mouth, 3 times a day, # 90 tablet, Refills 3, Tot. Refills 3, Maintenance, 10/27/21 15:24:00 EDT, Route to Pharmacy Electronically, [facility] #[id number], 160, cm, 08/27/21 13:11:00 EDT, Height, 57.86, kg, 04/12/20 23:44:00 EST, Start Date: 10/27/21 Status: Ordered Nutritional Supplements See Instructions, # 90 each, Refills 11, Tot. 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 alqszsppJ66.4, G31.83, 07/09/22 17:02:00 EDT, Supply Start Date: 07/09/22 Status: Ordered omeprazole 40 mg oral enteric coated capsule 1 capsule, By Mouth, Daily, # 90 capsule, 1 Refills, 09/15/22 16:21:00 EDT, [facility] #06409, 160, cm, 06/18/22 14:50:00 EDT, Height Start [...] 05/03/22 11:14:00 EST, Route to Pharmacy Electronically, [facility] #[id number], 160, cm, 04/19/22 17:27:00 EST, Height Start [...] Supply Start Date: 05/22/20 Status: Ordered Washable Hat Braider Bed Pads Washable Hat Braider Bed Pads, See Instructions, # 4 each, [...] Pre-syncope Confirmed Active Orthostatic hypotension Confirmed Active *[id number] Sifting Operator Yi Campos Confirmed Active Pain of right [...] Associate Professional Member Role: PCP Address: Address: [address] [place] [id number] Name: Maci Kruse RN Position: [facility] SN RN Member Role: Primary Care Nurse Name: Kandis Lehman RN Position: [facility] RN Member Role: Primary Care Nurse Name: Lidya Lyons RN Position: [facility] RN Member Role: Primary Care Nurse Name: Lyudmila Ortez RN Position: [facility] RN Member [...] Care Nurse Name: Nancy Morrow RN Position: [facility] RN Member Role: Primary Care Nurse Name: Etta Dewitt RN Position: [facility] RN Member Role: Primary Care Nurse Care Team Related Persons Name: JESSIKA HEARD Address: [address] Name: JESSICA JOSUE Address: [address] [place] [address] Name: CARLOS CEJA Address: home [address] [address]
--- OUTSIDE RECORDS SUMMARY | 2023-08-03 18:34 | XMS_ITS | Continuity of Care Document ---
Author Organization [facility] Address [address] [place] [address]- Care Team Providers Care Art Gallery Director Name Role Phone Destinee JIMENEZ, Roberta Merida Primary Care Physician [phone] [facility]counter [facility] Date[facility]): 12/[facility] - 01/20/[address] [address] Allergies, Adverse Reactions, Alerts Substance Reaction Severity Status penicillin rash Active Immunizations Given and Recorded Vaccine Date Status Refusal Reason [id number] 12y+ bivalent booster vax 03/05/22 Given influenza [...] inactivated 1 05/31/12 Gi davonte SARS-CoV-2 mRNA ([id number]-rnipw) vax 06/19/21 Given SARS-CoV-2 (COVID-19) mRNA BNT-162b2 vac 05/17/20 Given SARS-CoV-2 (COVID-19) mRNA BNT-162b2 vac 2 04/26/20 Given pneumococcal 13-valent vaccine 08/31/16 Given pneumococcal 23-valent vaccine 3 05/31/12 Given tetanus/diphtheria/pertussis, acel(Tdap) 4 05/31/12 Given 1Admin Note: VIS dated 09/13/11 2Result Comment: Administered by Dalia Olguin SIGHT EFFECTS SPECIALIST 3Admin Note: VIS dated 12/17/08 4Admin Note: VIS dated 04/03/11 Medications Artificial Tears preserved solution 1 drops, Eyes, Both, 4 times a day, PRN Dry Eyes, # 10 mL, 11 Refills, Maintenance, 01/26/22 14:13:00 EST, Ophth Solution, [facility] #[id number], Partial fill upon patient request if the [...] tablet, 5 Refills, Maintenance, 08/26/22 16:55:00 EDT, [facility] #[id number], Please print in mauritanian, 160, cm, 06/18/22 14:50:00 EDT, Height Start [...] Gm, 1 Refills, Maintenance, 06/18/2314:05:00 EDT, Cream, [facility] #[id number], Partial fill upon patient request if the prescription is for a schedule II opioid drug., 1 applicatio... Start Date: 06/18/22 Status: Ordered docusate sodium 100 mg oral capsule 100 mg, 1, capsule, By Mouth, 2 times a day, PRN, # 60 capsule, Refills 3, Tot. Refills 3, Maintenance, for constipation, 01/26/22 14:13:00 EST, Route to Pharmacy Electronically, [facility][id number], Partial fill upon patient request if the pr... Start Date: 01/26/22 Status: Ordered Eucerin Eczema Relief topical cream 1 application, Topically, 2 times a day, # 240 Gm, 5 Refills, Maintenance, 01/15/21 16:05:00 EDT, [facility] #[id number], Partial fill upon patient request if the prescription is for a schedule II opioid drug., 1 application Topically 2 times a d... Start Date: 01/15/21 Status: Ordered guaiFENesin 400 mg oral tablet 1 tablet = 400 mg, By Mouth, Every 4 hours, PRN as needed for congestion and cough, # 30 tablet, 1 Refills, Maintenance, 08/27/21 13:40:00 EDT, Tablet, [facility] #[id number], Partial fill upon patient request if the [...] 2 Refills, Maintenance, 08/17/21 13:14:00 EDT, Syrup, [facility] #[id number], 15 mL By Mouth Daily,PRN:as needed for [...] tablet, 5 Refills, Maintenance, 11/16/22 8:09:00 EDT, [facility] #[id number], Partial fill upon patient request if the prescription is for a schedule II opioid drug., 164, cm, 10/25/22 13:5... Start Date: 11/16/22 Stop Date: 05/15/23 Status: Ordered levothyroxine 75 mcg (0.075 mg) oral tablet 1 tablet = 75 mcg, By Mouth, Daily, TK 1 T PO D, # 90 tablet, 1 Refills, Maintenance, 04/21/22 9:43:00 EST, Tablet, [facility] #[id number], Partial fill upon patient request if the prescription is for a schedule II opioid drug., 160, cm, ... Start Date: 04/21/22 Status: Ordered lidocaine 4% mucous membrane solution 1 application, Topically, 2 times a day, PRN Pain , Mild, # 1 each, 0 Refills, Maintenance, 05/22/20 16:43:00 EST, [facility] #[id number], Partial fill upon patient request if the prescription is for a schedule II opioid drug., 1 application Topi... Start Date: 05/22/20 Status: Ordered midodrine 5 mg oral tablet 1, tablet, By Mouth, 3 times a day, # 90 tablet, Refills 3, Tot. Refills 3, Maintenance, 10/27/21 15:24:00 EDT, Route to Pharmacy Electronically, [facility] #[id number], 160, cm, 08/27/21 13:11:00 EDT, Height, 57.86, kg, 04/12/20 23:44:00 EST, . Start Date: 10/27/21 Status: Ordered Nutritional Supplements See Instructions, # 90 each, Refills 11, Tot. 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 ocxqwfthL05.4, G31.83, 07/09/22 17:02:00 EDT, Supply Start Date: 07/09/22 Status: Ordered omeprazole 40 mg oral enteric coated capsule 1 capsule, By Mouth, Daily, # 90 capsule, 1 Refills, 09/15/22 16:21:00 EDT, [facility] #[id number], 160, cm, 06/18/22 14:50:00 EDT, Height Start [...] 05/03/22 11:14:00 EST, Route to Pharmacy Electronically, [facility] #[id number], 160, cm, 04/19/22 17:27:00 EST, Height Start [...] Supply Start Date: 05/22/20 Status: Ordered Washable Seeing Eye Dog Teacher Bed Pads Washable Seeing Eye Dog Teacher Bed Pads, See Instructions, # 4 each, [...] Pre-syncope Confirmed Active Orthostatic hypotension Confirmed Active *[id number] Home Health Manager Yi Campos Confirmed Active Pain [...] Team Personnel Name: Adela Vu RN Position: [facility] RN Member Role: Primary Care Nurse Name: Matilde Mahmood RN Position: [facility] RN Member Role: Primary Care Nurse Name: Roberta Felipe NP Position: [facility] PCO Associate Professional Member Role: PCP Address: Address: [address] [place] [address] Name: Maci Kruse RN Position: [facility] SN RN Member Role: Primary Care Nurse Name: Lidya Lyons RN Position: [facility] RN Member Role: Primary Care Nurse Name: Lyudmila Ortez RN Position: [facility] RN Member [...] Related Persons Name: JESSIKA HEARD Address: home [address] [place] [id number] Name: JESSICA JOSUE Address: home [address] [place] [address] Name: CARLOS CEJA Address: [address] [address]
--- OUTSIDE RECORDS SUMMARY | 2023-08-03 18:34 | XMS_ITS | Continuity of Care Document ---
Author Organization [facility] Address [address] [place] [address]- Care Team Providers Care Damage Prevention Coordinator Name Role Phone Destinee JIMENEZ, Roberta Merida Primary Care Physician [phone] [facility] Date[facility]): 06/20/23 - 07/20/[address] [address] Allergies, Adverse Reactions, Alerts Substance Reaction Severity Status penicillin rash Active Immunizations Given and Recorded Vaccine Date Status Refusal Reason [id number] 12y+ bivalent booster vax 03/05/22 Given influenza [...] inactivated 1 05/31/12 Gi davonte SARS-CoV-2 mRNA (bythjog-fjqe-uzoyl) vax 06/19/21 Given SARS-CoV-2 (COVID-19) mRNA BNT-162b2 vac 05/17/20 Given SARS-CoV-2 (COVID-19) mRNA BNT-162b2 vac 2 04/26/20 Given pneumococcal 13-valent vaccine 08/31/16 Given pneumococcal 23-valent vaccine 3 05/31/12 Given tetanus/diphtheria/pertussis, acel(Tdap) 4 05/31/12 Given 1Admin Note: VIS dated 09/13/11 2Result Comment: Administered by Dalia Olguin COPPER PLATE PRINTER 3Admin Note: VIS dated 12/17/08 4Admin Note: VIS dated 04/03/11 Medications Artificial Tears preserved solution 1 drops, Eyes, Both, 4 times a day, PRN Dry Eyes, # 10 mL, 11 Refills, Maintenance, 01/26/22 14:13:00 EST, Ophth Solution, [facility] #[id number], Partial fill upon patient request if the [...] tablet, 5 Refills, Maintenance, 08/26/22 16:55:00 EDT, [facility] #[id number], Please print in central african, 160, cm, 06/18/22 14:50:00 EDT, Height Start [...] Gm, 1 Refills, Maintenance, 06/18/2314:05:00 EDT, Cream, [facility] #[id number], Partial fill upon patient request if the prescription is for a schedule II opioid drug., 1 applicatio... Start Date: 06/18/22 Status: Ordered docusate sodium 100 mg oral capsule 100 mg, 1, capsule, By Mouth, 2 times a day, PRN, # 60 capsule, Refills 3, Tot. Refills 3, Maintenance, for constipation, 01/26/22 14:13:00 EST, Route to Pharmacy Electronically, [facility]#[id number], Partial fill upon patient request if the pr... Start Date: 01/26/22 Status: Ordered Eucerin Eczema Relief topical cream 1 application, Topically, 2 times a day, # 240 Gm, 5 Refills, Maintenance, 01/15/21 16:05:00 EDT, [facility] #[id number], Partial fill upon patient request if the prescription is for a schedule II opioid drug., 1 application Topically 2 times a d... Start Date: 01/15/21 Status: Ordered gabapentin 100 mg oral capsule 100 mg, 1, capsule, By Mouth, 2 times a day, # 60 capsule, Refills 2, Tot. Refills 2, Maintenance, 05/11/23 14:31:00 EST, Route to Pharmacy Electronically, [facility] #[id number], Partial fill upon patient request if the prescription is for a genna... Start Date: 05/11/23 Status: Ordered guaiFENesin 400 mg oral tablet 1 tablet = 400 mg, By Mouth, Every 4 hours, PRN as needed for congestion and cough, # 30 tablet, 1 Refills, Maintenance, 08/27/21 13:40:00 EDT, Tablet, [facility] #[id number], Partial fill upon patient request if the prescription is for a schedul... Start Date: 08/27/21 Status: Ordered Home Blood Pressure Monitor See Instructions, # 1 each, Refills 0, Tot. Refills 0, Maintenance, Use to monitor blood pressure daily for hypotension on rx I95.9 Fax to [facility], 07/05/23 12:05:00 EDT, Supply Start Date: 07/05/23 Status: Ordered Hospital Bed Mattress Hospital Bed [...] 2 Refills, Maintenance, 08/17/21 13:14:00 EDT, Syrup, [facility] #[id number], 15 mL By Mouth Daily,PRN:as needed for [...] tablet, 5 Refills, Maintenance, 11/16/22 8:09:00 EDT, [facility][id number], Partial fill upon patient request if the prescription is for a schedule II opioid drug., 164, cm, 10/25/22 13:5... Start Date: 11/16/22 Stop Date: 05/15/23 Status: Ordered levothyroxine 75 mcg (0.075 mg) oral tablet 1 tablet = 75 mcg, By Mouth, Daily, TK 1 T PO D, # 90 tablet, 1 Refills, Maintenance, 03/23/23 8:46:00 EST, Tablet, [facility] #[id number], Partial fill upon patient request if the prescription is for a schedule II opioid drug., 164, cm, 2... Start Date: 03/23/23 Status: Ordered lidocaine 4% mucous membrane solution 1 application, Topically, 2 times a day, PRN Pain , Mild, # 1 each, 0 Refills, Maintenance, 05/22/20 16:43:00 EST, [facility] #[id number], Partial fill upon patient request if the prescription is for a schedule II opioid drug., 1 application Topi... Start Date: 05/22/20 Status: Ordered midodrine 5 mg oral tablet 1, tablet, By Mouth, 3 times a day, # 90 tablet, Refills 3, Tot. Refills 3, Maintenance, 10/27/21 15:24:00 EDT, Route to Pharmacy Electronically, [facility] #[id number], 160, cm, 08/27/21 13:11:00 EDT, Height, 57.86, [...] capsule, 1 Refills, Maintenance, 04/20/23 19:37:00 EST, [facility] #[id number], 164, cm, 12/27/22 17:03:00 EDT, Height Start [...] 03/23/23 8:47:00 EST, Route to Pharmacy Electronically, [facility] #[id number], 164, cm, 12/27/22 17:03:00 EDT, Height Start Date: 03/23/23 Status: Ordered [facility] bed mattress [facility] bed mattress, See Instructions, # 1 each, [...] Supply Start Date: 05/22/20 Status: Ordered Washable Wire Stripper Bed Pads Washable Wire Stripper Bed Pads, See Instructions, # 4 each, [...] Pre-syncope Confirmed Active Orthostatic hypotension Confirmed Active *[id number] Stitcher Tape Controlled Machine Yi Campos Confirmed Active Pain of right sacroiliac joint Confirmed Active Seizures Confirmed Active Lewy body dementia Confirmed Active Tinea cruris Confirmed Active Unintentional weight loss Confirmed Active Urinary incontinence Confirmed Active Vitamin D deficiency Confirmed Active Social History Social History Type Response Smoking Status Former smoker entered on: 08/26/15 Sex Patient Care team information Care Team Personnel Name: Adela Vu RN Position: [facility] RN Member Role: Primary Care Nurse Name: Matilde Mahmood RN Position: [facility] RN Member Role: Primary Care Nurse Name: Roberta Felipe NP Position: [facility] PCO Associate Professional Member Role: PCP Address: Address: [address] [place] [address] Name: Maci Kruse RN Position: [facility] SN RN Member Role: Primary Care Nurse Name: Lidya Lyons RN Position: [facility] RN Member Role: Primary Care Nurse Name: Lyudmila Ortez RN Position: [facility] RN Member Role: Primary Care Nurse Name: Lilo Maldonado RN Position: [facility] RN Member Role: Primary Care Nurse Name: Anuj Murillo RN Position: [facility] RN Member Role: Primary Care Nurse Name: Jasmin Oliva Position: [facility] Outreach Member Role: Lifetime Consulting Physician Name: Suzanne Celeste RN Position: [facility] RN Member Role: Primary Care Nurse Name: Lily Solis RN Position: [facility] Onco RN Member Role: Primary Care Nurse Name: Nancy Morrow RN Position: [facility] RN Member Role: Primary Care Nurse Name: Etta Dewitt RN Position: [facility] RN Member Role: Primary Care Nurse Care Team Related Persons Name: JESSIKA HEARD Address: [address] [address] Name: JESSICA JOSUE Address: home [address] [place] [address] Name: CARLOS CEJA Address: home [address] [place] [id number]
--- OUTSIDE RECORDS SUMMARY | 2023-08-03 18:35 | XMS_ITS | Continuity of Care Document ---
Author Organization [facility] Address [address] [place] [address]- Care Team Providers Care Software Computer Specialist Name Role Phone Destinee JIMENEZ, Roberta Merida Primary Care Physician [facility] Date[facility]): 03/11/23 - 04/10/[address] [address]- Allergies, Adverse Reactions, Alerts Substance Reaction Severity Status penicillin rash Active Immunizations Given and Recorded Vaccine Date Status Refusal Reason [id number] 12y+ bivalent booster vax 03/05/22 Given influenza [...] inactivated 1 05/31/12 Gi davonte SARS-CoV-2 mRNA (nbuthjw-gpdh-xmtvr) vax 06/19/21 Given SARS-CoV-2 (COVID-19) mRNA BNT-162b2 vac 05/17/20 Given SARS-CoV-2 (COVID-19) mRNA BNT-162b2 vac 2 04/26/20 Given pneumococcal 13-valent vaccine 08/31/16 Given pneumococcal 23-valent vaccine 3 05/31/12 Given tetanus/diphtheria/pertussis, acel(Tdap) 4 05/31/12 Given 1Admin Note: VIS dated 09/13/11 2Result Comment: Administered by Dalia Olguin PLATFORM WORKER 3Admin Note: VIS dated 12/17/08 4Admin Note: VIS dated 04/03/11 Medications Artificial Tears preserved solution 1 drops, Eyes, Both, 4 times a day, PRN Dry Eyes, # 10 mL, 11 Refills, Maintenance, 01/26/22 14:13:00 EST, Ophth Solution, [facility] #[id number], Partial fill upon patient request if the [...] tablet, 5 Refills, Maintenance, 08/26/22 16:55:00 EDT, [facility] #[id number], Please print in telugu, 160, cm, 06/18/22 14:50:00 EDT, Height Start [...] Gm, 1 Refills, Maintenance, 06/18/2314:05:00 EDT, Cream, [facility] #[id number], Partial fill upon patient request if the prescription is for a schedule II opioid drug., 1 applicatio... Start Date: 06/18/22 Status: Ordered docusate sodium 100 mg oral capsule 100 mg, 1, capsule, By Mouth, 2 times a day, PRN, # 60 capsule, Refills 3, Tot. Refills 3, Maintenance, for constipation, 01/26/22 14:13:00 EST, Route to Pharmacy Electronically, [facility][id number], Partial fill upon patient request if the pr... Start Date: 01/26/22 Status: Ordered Eucerin Eczema Relief topical cream 1 application, Topically, 2 times a day, # 240 Gm, 5 Refills, Maintenance, 01/15/21 16:05:00 EDT, [facility] #[id number], Partial fill upon patient request if the prescription is for a schedule II opioid drug., 1 application Topically 2 times a d... Start Date: 01/15/21 Status: Ordered guaiFENesin 400 mg oral tablet 1 tablet = 400 mg, By Mouth, Every 4 hours, PRN as needed for congestion and cough, # 30 tablet, 1 Refills, Maintenance, 08/27/21 13:40:00 EDT, Tablet, [facility] #[id number], Partial fill upon patient request if the [...] 2 Refills, Maintenance, 08/17/21 13:14:00 EDT, Syrup, [facility] #[id number], 15 mL By Mouth Daily,PRN:as needed for [...] tablet, 5 Refills, Maintenance, 11/16/22 8:09:00 EDT, [facility] #[id number], Partial fill upon patient request if the prescription is for a schedule II opioid drug., 164, cm, 10/25/22 13:5... Start Date: 11/16/22 Stop Date: 05/15/23 Status: Ordered levothyroxine 75 mcg (0.075 mg) oral tablet 1 tablet = 75 mcg, By Mouth, Daily, TK 1 T PO D, # 90 tablet, 1 Refills, Maintenance, 03/23/23 8:46:00 EST, Tablet, [facility] #[id number], Partial fill upon patient request if the prescription is for a schedule II opioid drug., 164, cm, ... Start Date: 03/23/23 Status: Ordered lidocaine 4% mucous membrane solution 1 application, Topically, 2 times a day, PRN Pain , Mild, # 1 each, 0 Refills, Maintenance, 05/22/20 16:43:00 EST, [facility] #[id number], Partial fill upon patient request if the prescription is for a schedule II opioid drug., 1 application Topi... Start Date: 05/22/20 Status: Ordered midodrine 5 mg oral tablet 1, tablet, By Mouth, 3 times a day, # 90 tablet, Refills 3, Tot. Refills 3, Maintenance, 10/27/21 15:24:00 EDT, Route to Pharmacy Electronically, [facility] #[id number], 160, cm, 08/27/21 13:11:00 EDT, Height, 57.86, kg, 04/12/20 23:44:00 EST, . Start Date: 10/27/21 Status: Ordered Nutritional Supplements See Instructions, # 90 each, Refills 11, Tot. 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 [id number], G31.83, 07/09/22 17:02:00 EDT, Supply Start Date: 07/09/22 Status: Ordered omeprazole 40 mg oral enteric coated capsule 1 capsule, By Mouth, Daily, # 90 capsule, 1 Refills, 09/15/22 16:21:00 EDT, [facility] #[id number], 160, cm, 06/18/22 14:50:00 EDT, Height Start [...] 03/23/23 8:47:00 EST, Route to Pharmacy Electronically, [facility] #[id number], 164, cm, 12/27/22 17:03:00 EDT, Height Start Date: 03/23/23 Status: Ordered Twin size hospital bed mattress Twin size jeanes hospital bed mattress, See Instructions, # 1 [...] Supply Start Date: 05/22/20 Status: Ordered Washable Manager Utility Bed Pads Washable Manager Utility Bed Pads, See Instructions, # 4 each, [...] Pre-syncope Confirmed Active Orthostatic hypotension Confirmed Active *[id number] Engagement Engineer Yi Campos Confirmed Active Pain of right sacroiliac joint Confirmed Active Seizures Confirmed Active Lewy body dementia Confirmed Active Tinea cruris Confirmed Active Unintentional weight loss Confirmed Active Urinary incontinence Confirmed Active Vitamin D deficiency Confirmed Active Social History Social History Type Response Smoking Status Former smoker entered on: 08/26/15 Sex Patient Care team information Care Team Personnel Name: Adela Vu RN Position: [facility] RN Member Role: Primary Care Nurse Name: Matilde Mahmood RN Position: [facility] RN Member Role: Primary Care Nurse Name: Roberta Felipe NP Position: [facility] PCO Associate Professional Member Role: PCP Address: Address: [address] [place] [address] Name: Maci Kruse RN Position: [facility] SN RN Member Role: Primary Care Nurse Name: Lidya Lyons RN Position: [facility] RN Member Role: Primary Care Nurse Name: Lyudmila Ortez RN Position: [facility] RN Member Role: Primary Care Nurse Name: Lilo Maldonado RN Position: [facility] RN Member Role: Primary Care Nurse Name: Anuj Murillo RN Position: [facility] RN Member Role: Primary Care Nurse Name: Jasmin Oliva Position: [facility] Outreach Member Role: Lifetime Consulting Physician Name: Suzanne Celeste RN Position: [facility] RN Member Role: Primary Care Nurse Name: Lily Solis RN Position: [facility] Onco RN Member Role: Primary Care Nurse Name: Nancy Morrow RN Position: [facility] RN Member Role: Primary Care Nurse Name: Etta Dewitt RN Position: [facility] RN Member Role: Primary Care Nurse Care Team Related Persons Name: JESSIKA HEARD Address: home [address] [place] [address] Name: JESSICA JOSUE Address: [address] [place] [address] Name: CARLOS CEJA Address: home [address] [address]
--- OUTSIDE RECORDS SUMMARY | 2023-08-03 18:35 | XMS_ITS | Continuity of Care Document ---
Author Organization [facility] ter Address [address] [place] [id number]- Care Team Providers Care Rail Layer Name Role Phone Destinee JIMENEZ, Roberta Merida Primary Care Physician Encounter [facility] Date(s): 10/20/22 - 10/25/[address] [id number] Discharge Disposition: A-D/C Home Attending Physician: Rajesh Jesus DO Admitting Physician: Maria Ines Crawford MD Referring Physician: Not on Staff, Referring MD Allergies, Adverse Reactions, Alerts Substance Reaction Severity Status penicillin rash Active Immunizations Given and Recorded Vaccine Date Status Refusal Reason [id number] 12y+ bivalent booster vax 03/05/22 Given influenza [...] inactivated 1 05/31/12 Gi davonte SARS-CoV-2 mRNA ([id number]) vax 06/19/21 Given SARS-CoV-2 (COVID-19) mRNA BNT-162b2 vac 05/17/20 Given SARS-CoV-2 (COVID-19) mRNA BNT-162b2 vac 2 04/26/20 Given pneumococcal 13-valent vaccine 08/31/16 Given pneumococcal 23-valent vaccine 3 05/31/12 Given tetanus/diphtheria/pertussis, acel(Tdap) 4 05/31/12 Given 1Admin Note: VIS dated 09/13/11 2Result Comment: Administered by Dalia Olguin BRUSH STAINER 3Admin Note: VIS dated 12/17/08 4Admin Note: VIS dated 04/03/11 Medications Artificial Tears preserved solution 1 drops, Eyes, Both, 4 times a day, PRN Dry Eyes, # 10 mL, 11 Refills, Maintenance, 01/26/22 14:13:00 EST, Ophth Solution, [facility] #[id number], Partial fill upon patient request if the [...] tablet, 5 Refills, Maintenance, 08/26/22 16:55:00 EDT, [facility] #[id number], Please print in mozambican, 160, cm, 06/18/22 14:50:00 EDT, Height Start [...] Gm, 1 Refills, Maintenance, 06/18/2314:05:00 EDT, Cream, [facility] #[id number], Partial fill upon patient request if the prescription is for a schedule II opioid drug., 1 applicatio... Start Date: 06/18/22 Status: Ordered docusate sodium 100 mg oral capsule 100 mg, 1, capsule, By Mouth, 2 times a day, PRN, # 60 capsule, Refills 3, Tot. Refills 3, Maintenance, for constipation, 01/26/22 14:13:00 EST, Route to Pharmacy Electronically, [facility][id number], Partial fill upon patient request if the pr... Start Date: 01/26/22 Status: Ordered Eucerin Eczema Relief topical cream 1 application, Topically, 2 times a day, # 240 Gm, 5 Refills, Maintenance, 01/15/21 16:05:00 EDT, [facility] #[id number], Partial fill upon patient request if the prescription is for a schedule II opioid drug., 1 application Topically 2 times a d... Start Date: 01/15/21 Status: Ordered guaiFENesin 400 mg oral tablet 1 tablet = 400 mg, By Mouth, Every 4 hours, PRN as needed for congestion and cough, # 30 tablet, 1 Refills, Maintenance, 08/27/21 13:40:00 EDT, Tablet, [facility] #[id number], Partial fill upon patient request if the [...] 2 Refills, Maintenance, 08/17/21 13:14:00 EDT, Syrup, [facility] #[id number], 15 mL By Mouth Daily,PRN:as needed for [...] tablet, 5 Refills, Maintenance, 08/26/22 16:54:00 EDT, [facility] #[id number], Partial fill upon patient request if the prescription is for a schedule II opioid drug., 160, cm, 06/18/22 14:... Start Date: 08/26/22 Status: Ordered levothyroxine 75 mcg (0.075 mg) oral tablet 1 tablet = 75 mcg, By Mouth, Daily, TK 1 T PO D, # 90 tablet, 1 Refills, Maintenance, 04/21/22 9:43:00 EST, [facility] #[id number], Partial fill upon patient request if the prescription is for a schedule II opioid drug., 160, cm, ... Start Date: 04/21/22 Status: Ordered lidocaine 4% mucous membrane solution 1 application, Topically, 2 times a day, PRN Pain , Mild, # 1 each, 0 Refills, Maintenance, 05/22/20 16:43:00 EST, [facility] #[id number], Partial fill upon patient request if the prescription is for a schedule II opioid drug., 1 application Topi... Start Date: 05/22/20 Status: Ordered midodrine 5 mg oral tablet 5 mg, Tablet, By Mouth, 10/25/22 9:00:00 EDT Start Date: 10/25/22 Stop Date: 10/25/22 Status: Completed midodrine 5 mg oral tablet 1, tablet, By Mouth, 3 times a day, # 90 tablet, Refills 3, Tot. Refills 3, Maintenance, 10/27/21 15:24:00 EDT, Route to Pharmacy Electronically, [facility] #[id number], 160, cm, 08/27/21 13:11:00 EDT, Height, 57.86, kg, 04/12/20 23:44:00 ESTDr... Start Date: 10/27/21 Status: Ordered Nutritional Supplements See Instructions, # 90 each, Refills 11, Tot. 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 [id number], G31.83, 07/09/22 17:02:00 EDT, Supply Start Date: 07/09/22 Status: Ordered omeprazole 40 mg oral enteric coated capsule 1 capsule, By Mouth, Daily, # 90 capsule, 1 Refills, 09/15/22 16:21:00 EDT, [facility] #[id number], 160, cm, 06/18/22 14:50:00 EDT, Height Start [...] 05/03/22 11:14:00 EST, Route to Pharmacy Electronically, [facility] #[id number], 160, cm, 04/19/22 17:27:00 EST, Height Start Date: 05/03/22 Status: Ordered Urinal See Instructions, # 3 each, Refills 0, Tot. Refills 0, Maintenance, Use as needed for urinating. 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 Z74.01, G31.83, 05/22/20 17:15:00 EST, Supply Start Date: 05/22/20 Status: Ordered Washable Code Official Bed Pads Washable Code Official Bed Pads, See Instructions, # 4 each, [...] Pre-syncope Confirmed Active Orthostatic hypotension Confirmed Active *[phone] Line Assigner Yi Campos Confirmed Active Pain of right sacroiliac joint Confirmed Active Seizures Confirmed Active Lewy body dementia Confirmed Active Tinea cruris Confirmed Active Unintentional weight loss Confirmed Active Urinary incontinence Confirmed Active Vitamin D deficiency Confirmed Active Results Radiology Reports * Exam Date Time Procedure Performing Provider Status 10/20/22 6:[address] Head/Brain W/O Contrast Karla Goodwin na; Auth (Verified) Notes: (CT Head/Brain W/O Contrast) Reason For Exam: Brain mass or lesion;Other: RESULT: CT Head/Brain W/O Contrast CT Head/Brain W/O Contrast INDICATION: Hx of Present Illness: increased sezirues; per fam pt will start feeling dizzy when changing positiongs (sit lie down) then has a seizure - slumped over, eyes rolled back and drooling.; Reason: Other:; Brain mass or lesion; Clinical Question(s): Hematoma; Order Comment: TECHNIQUE: Noncontrast head CT using axial technique and reconstructed in axial and coronal planes.Iterative reconstruction techniques are used to optimize dose and image quality. CTDIvol Head: 48.30 mGy, DLP Head: 773 mGy*cm. COMPARISON: Head CT 05/08/20 FINDINGS: Gallery Or Museum Guide view findings, lines and tubes: None. BRAIN AND EXTRA-AXIAL SPACES: No parenchymal hemorrhage, midline shift, or mass effect. Urbano-white matter differentiation is wellpreserved. No acute infarct. Negative insular ribbon sign. Atherosclerotic vascular calcification of the carotid arteries but negative hyperdense vessel sign. Moderate prominence of the ventricles and sulci consistent with parenchymal volume loss. Mild low-density white matter changes. No subarachnoid hemorrhage. No subdural or epidural collection. CALVARIUM, SKULL BASE, AND SOFT TISSUES: No fractures or suspicious bony lesions. The paranasal sinuses and mastoid air cells are clear. Visualized orbits and globes are intact. The extracranial soft tissues are unremarkable. IMPRESSION: Extensively motion degraded exam. No acute intracranial hemorrhage or mass effect. WSN: [id number] Ordering Physician: Romel Briones Dictated By: Quang Lieberman MD Dictated Date/Time: 10/20/22 6:56 pm Reviewed By: Quang Lieberman MD Signed By: Quang Lieberman MD Signed Date/Time: 10/20/22 6:56 pm Transcribed By: KESHIA Transcribed Date/Time: 10/20/22 6:54 pm * Exam Date Time Procedure Performing Provider Status 10/20/22 5:30 PM Chest Single Frontal View Tiffani Marks; Modified Notes: (Chest Single Frontal View) Reason For Exam: Other:;Cough RESULT: Chest Single Frontal View AP supine portable chest dated October 20, 2022 at 1720 hours. Comparison films are from November 04, 2020. HISTORY: Cough. FINDINGS: The cardiac silhouette is within normal limits for size. Hilar and mediastinal structuresare unremarkable. No airspace infiltrate or pleural effusion is identified. Degenerative changes are noted in the spine. IMPRESSION: No evidence of acute pulmonary disease. Examination [id number]. Thank you for allowing me to participate in the care of this patient. WSN: [id number] Ordering Physician: Romel Briones Dictated By: Florentin Daniel MD Dictated Date/Time: 10/20/22 5:37 pm Reviewed By: Florentin Daniel MD Signed By: Florentin Daniel MD Signed Date/Time: 10/20/22 5:37 pm Transcribed By: KESHIA Transcribed Date/Time: 10/20/22 5:37 pm Vital Signs Most recent to oldest [Reference Range]: 1 2 3 Height 164 cm (10/25/22 1:55 PM) 164 cm (10/25/22 4:20 AM) 164 cm (10/24/22 11:24 PM) Weight 59 kg (10/24/22 4:24 AM) 66 kg (10/20/22 5:49 PM) 66 kg (10/20/22 3:00 PM) Oxygen Saturation [94-100 %] 100 % (10/25/22 1:55 PM) 96 % (10/25/22 11:00 AM) 100 % (10/25/22 7:00 AM) Pulse Rate [55-90 bpm] 74 bpm (10/25/22 1:55 PM) 69 bpm (10/25/22 11:00 AM) 75 bpm (10/25/22 9:42 AM) Body Mass Index [18.5-24.99 kg/m2] 21.94 kg/m2 (10/24/22 4:24 AM) 24.54 kg/m2 (10/20/22 5:49 PM) Blood Pressure [90-138/55-84 mm Hg] 151/86mm Hg *H* (10/25/22 1:55 PM) 129/58mm Hg (10/25/22 11:00 AM) 154/69mm Hg *H* (10/25/22 9:42 AM) Respiratory Rate [16-30 br/min] 18 br/min (10/25/22 1:55 PM) 16 br/min (10/25/22 11:00 AM) 16 br/min (10/25/22 7:00 AM) Temperature [96.8-100.4 DegF] 97.4 DegF (10/25/22 1:55 PM) 97.0 DegF (10/25/22 11:00 AM) 97.4 DegF (10/25/22 7:00 AM) Mode of Delivery (Oxygen) Room air (10/25/22 1:55 PM) Room air (10/25/22 11:00 AM) Room air (10/25/22 7:00 AM) Blood pressure sites Arm, right (10/25/22 1:55 PM) Arm, right (10/25/22 11:00 AM) Arm, right (10/25/22 7:00 AM) Temperature Route Axillary (10/25/22 1:55 PM) Temporal (10/25/22 11:00 AM) Temporal (10/25/22 7:00 AM) Weight Obtained Via Bed scale (10/24/22 4:24 AM) Patient/family stated (10/20/22 3:00 PM) Social History Social History Type Response Smoking Status Former smoker entered on: 08/26/15 Sex Male Admission evaluation note * Ashu Navarro: PERFORM Event Display: Admission Note Authored Date: [id number] Patient: ??ESCOBAR COHEN ? Age:??82 Years?Sex:??Male?:??1940?? Chief Complaint/Reason for Consultation Breakthrough seizures History of Present Illness 82-year-old male with history of dementia, seizure disorder, GERD, hypothyroidism??presents from PCP office due to concern for??breakthrough seizures.?? History from patient limited due to dementia??in [place] language barrier.?? Additional??history obtained??from his niece.?? 4 months??he has been having??2-3 episodes a day??when he is unresponsive, his eyes rolled back, he shakes all over.?? The episodes last??for about 3 to 4 minutes??and he comes back to baseline??in about 10 minutes.?? Theepisodes occur??when he is moving??up out of his chair??to bathe or eat??for example.?? PCP was conc erned??for seizure so he was sent to the emergency??department for evaluation. Review of Systems Limited due to dementia Objective Vital Signs?? Temperature: 98.6 DegF (10/20/22 17:49:00) Temperature Route: Axillary (10/20/22 17:49:00) Pulse Rate: 80 bpm (10/20/22 21:00:00) Respiratory Rate:??14 br/min??Low (10/20/22 21:00:00) Systolic Blood Pressure:??148 mm Hg??High (10/20/22 21:15:00) Diastolic Blood Pressure:??108 mm Hg??High (10/20/22 21:15:00) Blood pressure sites: Arm, right (10/20/22 19:03:00) Mean Arterial Pressure: 133 mm Hg (10/20/22 17:49:00) Pulse Pressure: 40 mm Hg (10/20/22 21:15:00) Oxygen Saturation: 98 % (10/20/22 21:00:00) Mode of Delivery (Oxygen): Room air (10/20/22 21:00:00) Vital Signs Comment: [id number] (10/20/22 13:59:00) Early Warning Score: 3 (10/20/22 22:12:19) ? Physical Exam General:??82 year old male??lies in bed comfortably in no acute distress HEENT: NCAT, moist oral mucosa, good dentition, oropharynx without erythema Card: RRR no murmur, non displaced PMI, no JVD, 2+ radial pulse B/L Resp: CTA B/L, no wheezing, rales, ronchi Abdomen: soft and non tender, bowel sounds WNL Extremities: no pitted edema B/L lower extremities Skin: Without rashes or lesions, good turgor Hem/Lymph: without bruising or lymphadenopathy Psych: appropriate affect Neuro: A&OX0, no focal motor deficits Assessment/Plan 82-year-old male with history of dementia, seizure disorder, GERD, hypothyroidism??presents from PCP office due to concern for??breakthrough seizures.? Seizure disorder (G40.909):??Not entirely convinced that these episodes are seizures.??No tonguebiting, bladder or bowel incontinence.??He comes back to baseline within 10 minutes.??The episodes occur when he is moving??from a seated position.??May be syncopal episodes.??Reviewed his neurology office note from about 6 months ago.??They were considering increasing??his antiepileptic??dosage??but family??decided not to??given frequency??and possibility of increased drowsiness. ?? Plan needle leader Continue seizure medications Will likely need??video??EEG Neurology consult ?? Hypertension (I10):?? He has been hypertensive here??up to 193/100 We will start on??amlodipine Stop??midodrine ?? Hypothyroidism (E03.9):??Continue Synthroid ?? Dementia (F03.90):??Trazodone at bedtime ?? VTE Prophylaxis:??Lovenox ?VTE Prophylaxis Assessment:??VTE Prophylaxis Ordered ?? Code Status:??DNR, MOLST??on file ?Order Code Status:??Code Status Ordered ?? Ongoing Medical Necessity:??Seizure workup ?? Discharge Planning:??Likely??home in??2 to 3 days ?? Total time spent on chart review,??medication reconciliation, direct patient care, documentation: 76 minutes ?? Histories Allergies Allergies ?(Active and Proposed Allergies Only) penicillin? (Severity: Unknown severity, Onset: Unknown) ?Reactions: rash ? Past Medical History/Problem List Active Problems??(29) *[id number] Line Assigner Yi Campos Adult hypothyroidism Anemia Bowel perforation, 09/24 at [facility], s/p lap Dr. Bedoya BPH (benign prostatic hyperplasia) Cerumen impaction Chronic pruritus, skin CKD - chronic kidney disease Constipation COVID-19 Dementia Developmental delay Dry eyes, bilateral Hearing loss History of pulmonary embolism Hypotension Lewy body dementia Low back pain Muscular deconditioning Myalgia Orthostatic hypotension Pain of right sacroiliac joint Pre-syncope Seizures Severe muscle deconditioning Tinea cruris Unintentional weight loss Urinary incontinence Vitamin D deficiency ? Past Surgical History Upper gastrointestinal endoscopy including esophagus, stomach, and either the duodenum and/or jejunum as appropriate; with biopsy, single or multiple: 01/11/14 ? Social History Alcohol Details:??Use: Never. Employment/School Details:??Status: Disabled. Exercise Details:??Self assessment: Poor condition. Home/Environment Details:??Living situation: Home with assistance. Nutrition/Health Details:??Diet: Regular. Sexual Details:??Sexually involved in last 6 months: No. Substance Abuse Details:??Use: Never. Tobacco Details:??Former smoker Details:??Never smoker, Tobacco user in household: No. Details:??Use: Never smoker. ? Family History No family history recorded. ? Medications Home Medications DiphenhyrdAMINE Topical (diphenhydrAMINE 2% topical cream)?1?valdez?Topically?3 times a day?as needed?for itching Divalproex Sodium (Depakote 250 mg oral enteric coated tablet)?See Instructions?1 tablet By Mouth in the AM and 2 tablet at bedtime Docusate (docusate sodium 100 mg oral capsule)?100?Milligram?1?capsule?By Mouth?2times a day?as needed?for constipation Durable Medical Equipment (Diapers)?See Instructions?Size Large. Use up to 8 daily for urinary incontinence R32 Durable Medical Equipment (Urinal)?See Instructions?Use as needed for urinating. Pt bedbound,unable to ambulate to bathroom due to lewy body dementia. Z74.01, G31.83 Durable Medical Equipment (Attends dry-sob ??size 30x36)?See Instructions?Use bed bads as needed at night, up to 3 per night, for urinary incontinence R32 Durable Medical Equipment (Hospital Bed Mattress)?See Instructions?Use on hospital bed to prevent pressure ulcers. Replacement due to worn mattress and skin changes. Z74.01 Durable Medical Equipment (hydrocolloid dressing)?See Instructions?4 x2 or largerUse to cover pressure ulcer on posterior hip/low back.Change 1-2 times dailyKeep clean with soap and [id number] Durable Medical Equipment (Barrier cream)?See Instructions?Apply to buttock and low back where pt is at risk of pressure ulcers and exposure to urine. Apply three times a day or as needed.ICD10: L89.92, R54, Z74.01Dispense 2 large tubes per month Durable Medical Equipment (Washable Code Official Bed Pads)?See Instructions?Use as needed for totalincontinence, bedbound N39.498, Z74.01 Durable Medical Equipment (oral care swabs)?See Instructions?Use up to 8 per day to moisten the mouth due to dry mouth and dementia R68.2, G31.83 Durable Medical Equipment (Nutritional Supplements)?See Instructions?350 kcal, 8oz, q 8 hrs by mouthEnsure Plus Vanilla, 1 can TID by mouth, for unintended weight loss related to advanced dementia R63.4, G31.83 Durable Medical Equipment (Large Pull Up Diapers)?See Instructions?Use up to 8 daily as needed for urinary and stool incontinence R32 R15.9. To replace regular diapers Durable Medical Equipment (wipes)?See Instructions?Use to clean patient for urinary and stoolincontinence R15.9, R32 Emollients, Topical (Eucerin Eczema Relief topical cream)?1?valdez?Topically?2 times a day Guaifenesin (guaiFENesin 400 mg oral tablet)?1?tab(s)?400?Milligram?By Mouth?Every 4 hours?as needed?as needed for congestion and cough Lactulose (lactulose 10 gm/15 ml oral syrup)?15?Milliliter?10?gram?By Mouth?Daily?as needed?as needed for constipation levETIRAcetam (levETIRAcetam 500 mg oral tablet)?1?tab(s)?500?Milligram?By Mouth?2 times a day Levothyroxine (levothyroxine 75 mcg (0.075 mg) oral tablet)?1?tab(s)?75?Microgram?ByMouth?Daily?TK 1 T PO ??D Lidocaine Topical (lidocaine 4% mucous membrane solution)?1?valdez?Topically?2 times a day?as needed?Pain , Mild Midodrine (midodrine 5 mg oral tablet)?1?tablet?By Mouth?3 times a day Miscellaneous Rx (Barrier cream)?See Instructions?Apply to area of darkened skin around coccyx 3-4 times daily to prevent skin breakdown. Dx: stage 1 pressure ulcer L89.91 Ocular Lubricant (Artificial Tears preserved solution)?1?Drops?Eyes, Both?4 times a day?as needed?Dry Eyes Omeprazole (omeprazole 40 mg oral enteric coated capsule)?1?capsule?By Mouth?Daily Trazodone (traZODone 50 mg oral tablet)?2?tablet?By Mouth?Daily at bedtime ? Results Recent Labs BLOOD COUNT & DIFF WBC 6.4 k/mm3 ()?? 10/20/2022 15:50 RBC 3.56 m/mm3 (Low)?? 10/20/2022 15:50 Hgb 11.5 Gm/dL (Low)?? 10/20/2022 15:50 Hct 35.7 % (Low)?? 10/20/2022 15:50 MCV 100.3 femtoliters (High)?? 10/20/2022 15:50 MCH 32.3 pg ()?? 10/20/2022 15:50 MCHC 32.2 g/dL (Low)?? 10/20/2022 15:50 Platelet Count 130 k/mm3 (Low)?? 10/20/2022 15:50 RDW-SD 54.9 femtoliters (High)?? 10/20/2022 15:50 MPV 12.8 femtoliters (High)?? 10/20/2022 15:50 Nucleated RBC (Automated) 0.0 #/100 WBC'S ()?? 10/20/2022 15:50 Abs. NRBC 0.0 k/mm3 ()?? 10/20/2022 15:50 Abs. Neut 4.4 k/mm3 ()?? 10/20/2022 15:50 Abs. Lymph 1.4 k/mm3 ()?? 10/20/2022 15:50 Abs. [place] 0.5 k/mm3 ()?? 10/20/2022 15:50 Abs. Eo 0.1 k/mm3 ()?? 10/20/2022 15:50 Abs. Baso 0.0 k/mm3 ()?? 10/20/2022 15:50 Neut % 68.4 % ()?? 10/20/2022 15:50 Lymph % 21.2 % ()?? 10/20/2022 15:50 [place] % 8.0 % ()?? 10/20/2022 15:50 Eos % 1.2 % ()?? 10/20/2022 15:50 Baso % 0.3 % ()?? 10/20/2022 15:50 Imm Gran 0.9 % ()?? 10/20/2022 15:50 Abs. Imm Gran 0.1 k/mm3 ()?? 10/20/2022 15:50 ?? CARDIAC Nt-Probnp 1267 pg/mL (High)?? 10/20/2022 15:50 High Sensitivity Troponin (HSTnT) 76 ng/L (Critical)?? 10/20/2022 15:50 ?? CHEM GENERAL Sodium 139 mmol/L ()?? 10/20/2022 15:50 Potassium 5.8 mmol/L (High)?? 10/20/2022 15:50 Chloride 104 mmol/L ()?? 10/20/2022 15:50 Bicarbonate Level 23 mmol/L ()?? 10/20/2022 15:50 Anion Gap 12 ()?? 10/20/2022 15:50 Glucose Level 89 mg/dL ()?? 10/20/2022 15:50 BUN 26 mg/dL (High)?? 10/20/2022 15:50 Creatinine-Blood 1.6 mg/dL (High)?? 10/20/2022 15:50 Estimated GFR Creatinine 44 ML/MIN/1.73 M2 ()?? 10/20/2022 15:50 Calcium 9.1 mg/dL ()?? 10/20/2022 15:50 Calcium, Ionized pH Corrected 1.28 mmol/L ()?? 10/20/2022 15:50 Magnesium 2.3 mg/dL ()?? 10/20/2022 15:50 Protein, Total 6.3 Gm/dL ()?? 10/20/2022 15:50 Albumin 3.2 Gm/dL (Low)?? 10/20/2022 15:50 AG Ratio 1.0 ()?? 10/20/2022 15:50 Alkaline Phosphatase 86 units/L ()?? 10/20/2022 15:50 AST (SGOT) 19 units/L ()?? 10/20/2022 15:50 ALT (SGPT) 10 units/L ()?? 10/20/2022 15:50 Bilirubin, Total 0.2 mg/dL ()?? 10/20/2022 15:50 Lactate 2.2 mmol/L ()?? 10/20/2022 20:48 ?? COAG INR 1.0 ()?? 10/20/2022 15:50 Protime (PT) 10.9 seconds ()?? 10/20/2022 15:50 APTT 24.6 seconds ()?? 10/20/2022 15:50 ?? ENDOCRINE/TUMOR MARKER TSH 7.73 uIU/mL (High)?? 10/20/2022 15:50 Free T4 1.46 ng/dL ()?? 10/20/2022 15:50 ?? UA/URINALYSIS Appear/Color, Urine LIGHT YELLOW ()?? 10/20/2022 15:40 Specific [place], Urine 1.022 ()?? 10/20/2022 15:40 pH, Urine 7.0 ()?? 10/20/2022 15:40 Albumin, Urine TRACE (Abnormal)?? 10/20/2022 15:40 Glucose, Urine NEGATIVE ()?? 10/20/2022 15:40 Ketones, Urine NEGATIVE ()?? 10/20/2022 15:40 Bilirubin, Urine NEGATIVE ()?? 10/20/2022 15:40 Hemoglobin, Urine NEGATIVE ()?? 10/20/2022 15:40 Nitrite, Urine NEGATIVE ()?? 10/20/2022 15:40 Leukocyte, Urine NEGATIVE ()?? 10/20/2022 15:40 Urobilinogen NORMAL mg/dL ()?? 10/20/2022 15:40 WBC's, Urine 1 /HPF ()?? 10/20/2022 15:40 RBC's, Urine 2 /HPF ()?? 10/20/2022 15:40 Squamous Epith <1 /HPF ()?? 10/20/2022 15:40 Mucus SLIGHT /LPF ()?? 10/20/2022 15:40 Hold Urine Culture Testing available 48 hours from time of collection. ()?? 10/20/2022 15:40 ?? VIROLOGY COVID-19 by RT-PCR NEGATIVE ()?? 10/20/2022 15:44 ? EKG study * Event Display: ECG 12-Lead Authored Date: Please click on pdf link to open report * Event Display: ECG 12-Lead Authored Date: Ventricular Rate: 69 BPM Atrial Rate: 69 BPM P-R Interval: 126 ms QRS Duration: 76 ms Q-T Interval: 400 ms QTC Calculation(Bazett): 428 ms P Onward: 66 degrees R Onward: 16 degrees T Onward: 69 degrees Normal sinus rhythm Normal ECG When compared with ECG of 24-AUG-2021 13:14, Premature ventricular complexes are no longer Present Confirmed by NONA POPE MD ([id number]) on 10/20/2022 7:06:26 PM [place]: NONA POPE MD Cardiology * Event Display: Cardiac Rhythm Strips Authored Date: * Event Display: Cardiac Rhythm Strips Authored Date: Hospital Progress note * Isabel Hahn RN: VERIFY, PERFORM, SIGN Event Display: Progress Note Hospital Authored Date: [id number] Patient: ESCOBAR COHEN Age: 82 years Sex: Male : 1940 Associated Diagnoses: None Author: Isabel Hahn RN Findings Problem Related to Alteration in Neurological : Alteration in Neurological Function/new 10/25/2022 10:00 EDT Alteration in Neuro status Related to Seizure Goals & Outcomes, Neurological Lab studies/diagnostic tests within pt specific limits, Pt is safe with transfers & activities, Pt will be discharged without infection, Pt will be hemodynamically stable, Pt will be Neurologically stable, Pt will become pain free with appropriate intervention, Pt will maintain intact skin integrity, Pt will remain free from injury Interventions, Neurological Assess & monitor for seizure activity, Monitor for therapeutic levels of anti-seizure meds Goals/Interventions, Neurological Yes Neurological, Problem Start 10/22/2022 16:55 Reviewed plan with, Neurological Patient Patient Progression, Neurological Pt progressing according to plan . Nursing Data Neurological Data. : Neurological Data. 10/25/2022 10:03 EDT Neurological Symptoms Alteration in level of consciousness, Altered sensation or tingling, Impaired mental ability, Lack of coordination, Weakness or loss of muscle strength Level of Consciousness Lethargy Strength LUE 1-Trace movement Strength RUE 1-Trace movement Strength LLE 1-Trace movement Strength RLE 1-Trace movement Tone LUE Rigid Tone RUE Rigid Tone LLE Rigid Tone RLE Rigid Sensation LUE Diminished Movement LUE Flexes to pain Movement RUE Flexes to pain Movement LLE Flexes to pain Movement RLE Flexes to pain Gait Unable to assess Neuro WNL except Memory Unable to assess 10/25/2022 9:42 EDT Pain Intensity 3 . Evaluation pt has remained non verbal, very contrated in all 4 extremeties, can straighten legs but will pull them back up and moans as if inpain when attempting. pt has continued to spit out any food by a spoon including applesauce with medications. Ihave crushed medications and put in an oral syringe with orange juice and if placed in mouth small amounts at a time and pt did swallow medications. pt has condom cath in place with brief at start of shift. condom cath did come off and pt was wet, was washedby myself and pct condom cath replaced, when pt is rolled condom cath has come off again, pt cleaned, replaced condom cath left outof brief at sons request when he visited and spoke with dr. Jesus. Son seemed very upset pt was in brief.. * Mitesh Corral RN: PERFORM, SIGN, VERIFY Event Display: Progress Note Hospital Authored Date: [id number] Patient: ESCOBAR COHEN Age: 82 years Sex: Male : 1940 Associated Diagnoses: None Author: Mitesh Corral RN Findings Problem Related to Alteration in Neurological : Alteration in Neurological Function/new 10/24/2022 21:00 EDT Alteration in Neuro status Related to Seizure Goals & Outcomes, Neurological Lab studies/diagnostic tests within pt specific limits, Pt is safe with transfers & activities, Pt will be discharged without infection, Pt will be hemodynamically stable, Pt will be Neurologically stable, Pt will become pain free with appropriate intervention, Pt will maintain intact skin integrity, Pt will remain free from injury Interventions, Neurological Assess/monitor neurologic status, Assess/monitor VS per unit standards & prn, Call/Report variances in assessments to provider, Collaborate w/ provider to implement appropriate guidelines, Collaborate with Nutrition, Document & Monitor O2 Sats; Administer O2 as ordered, Emergency airway equipment at bedside, Identify psychosocial issues related to diagnosis/illness, If no bowel movement in 3 days activate bowel regime, [place] alternate means of communication, Keep patient's head & body in good alignment, Maintain HOB at least 30 deg, Maintain normothermia, report temp >101.5 F, Maintain patient safety if unsteady gait, Monitor Fluid & Electro lytes, Serum Osmolarity, Monitor for headaches, nausea, vomiting, Monitor speech fluency, aphasia, word finding difficulty, Physical assessment per unit standards, Provide emotional support to Pt/caregiver, Teach pt/caregiver discharge plan & follow up care, Teach pt/caregiver on plan of care, treatment, s/s & meds, Teach pt/caregiver on use of pain scale, Assess & monitor for seizureactivity, Assess for aspiration and status epileptics, Assess seizure Hx, frequency/type/presence of aura, Document length of postictal phase & postictal activity, Document length of seizure and activity during seizure, During seizure activity maintain pt safety & privacy, Initiate & maintain Seizure Precautions, Minimize seizure triggering stimuli (i.e. light, noise, pain, Monitor for therapeutic levels of anti-seizure meds, Monitor oxygenation/ventilation during seizure activity, Monitor/maintain airway patency, Obtain post seizure labs as ordered, Post seizure: assess pt for injury/vital signs/neuro's, Provide explanation of disorder, causes & treatment BH Goals/Interventions, Neurological Yes Neurological, Problem Start 10/22/2022 16:55 Reviewed plan with, Neurological Family/caregiver not available, Other: Dementia. Does not comprehend teaching. Garbled speech, Family is main provider Patient Progression, Neurological Pt progressing according to plan Comment: Neurological Maintain seizure precautions. Continue Keppra . Evaluation Disorientated x 4. Seizure precautions maintained. No s/sx of seizur activity. Tele Sb to NSR. Lungs diminished. Does not comprehend to take a deep breath. Room air. No s/sx of cardiac or respitory distress. All 4 limbs contracted. Attempted to gently stretch leg and retracted with facial grimicing. Does not like to be repositioned. Pillows used. Iraqi speaking only. Unable to make needs known.Frequent rounds maintained to ensure saftey. Using Face scale, patient does not appear to have pain unless staff tries to stretch a limb. Bed alarm in use. Did not set alarm off. [place] cath in use. Skin frail, intact. Dysphagia 1 diet. Poor po. 1:1 feed. Gave patient 360cc fluid over shift. D5NS at 75cc/hr. Potassium 5.4 this AM and recived 5G [place]. See CIS/ Biophysical/ POC. Continue to monitor. * Lidya Lyons RN: VERIFY, PERFORM, SIGN Event Display: Progress Note Hospital Authored Date: [id number] Patient: ESCOBAR COHEN Age: 82 years Sex: Male : 1940 Associated Diagnoses: None Author: Serena PRUETT, Lidya Edwards Problem Related to Alteration in Neurological : Alteration in Neurological Function/new 10/24/2022 19:00 EDT Alteration in Neuro status Related to Seizure Goals & Outcomes, Neurological Lab studies/diagnostic tests within pt specific limits, Pt is safe with transfers & activities, Pt will be discharged without infection, Pt will be hemodynamically stable, Pt will be Neurologically stable, Pt will become pain free with appropriate intervention, Pt will maintain intact skin integrity, Pt will remain free from injury Interventions, Neurological Assess/monitor neurologic status, Assess/monitor VS per unit standards & prn, Call/Report variances in assessments to provider, Collaborate w/ provider to implement appropriate guidelines, Collaborate with Nutrition, Collaborate with provider re: medication regime, Document & Monitor O2 Sats; Administer O2 as ordered, Keep patient's head & body in good alignment, Maintain normothermia, report temp >101.5 F, Maintain patient safety if unsteady gait, Maintain strict intake & output, Monitor Fluid & Electrolytes, Serum Osmolarity, Monitor for headaches, nausea, vomiting, Monitor speech fluency, aphasia, word finding difficulty, Physical assessment per unit standards, Provide emotional support to Pt/caregiver BH Goals/Interventions, Neurological Yes Neurological, Problem Start 10/22/2022 16:55 Reviewed plan with, Neurological Patient Patient Progression, Neurological Pt progressing according to plan . Nursing Data Neurological Data. : Neurological Data. 10/24/2022 9:00 EDT Tongue Disposition Midline Neurological Symptoms Alteration in speech quality, Difficulty swallowing, Impaired mental ability,New onset seizures, Unsteady gait/Ataxia, Weakness or loss of muscle strength Level of Consciousness Confusion Orientated to person, place, time Person Hallucinations None Facial Symmetry Intact Characteristics of Speech Slurred Swallowing Difficulty Liquids: thin Pupil description, left Regular Pupil description, right Regular Pupil reaction, left Brisk Pupil reaction, right Brisk Tone LUE Normal Sensation LUE Intact Sensation RUE Intact Sensation LLE Intact Sensation RLE Intact Movement LUE Spontaneous Movement RUE Spontaneous Movement LLE Spontaneous Movement RLE Spontaneous Gait Unable to assess Tremors None Response Eye Opening Spontaneously Motor Response-Adult Flexion-withdrawal Verbal Response-Adult Disoriented and converses Vito Coma Score 12 Neuro WNL except Eyes and Movements Conjugate gaze: Move in same direction at same speed Headache None Memory Unable to assess Swallow - Neuro Normal . Evaluation Pt alert to self. Primarily mozambican speaking but does not follow commands. Pt eyes closed and drowsy most of the shift. Does respond to verbal stimili. Pt contracted in all extremities. On tele #8 with NSR. Lungs dim at the bases on room air, no sob or cough noted. Last BM was 10/24, +bs in all quadrants. Poor PO intake despite encouragement. [place] cath in place draining CYU. Appears to be restingcomfortably. Fluids running as ordered. Safety precautions maintained. Family updated at the bedside.. Consult note * Katelynn Casey NP: PERFORM Event Display: Consultation Note Authored Date: [id number] Patient: ??ESCOBAR COHEN ? Age:??82 Years?Sex:??Male?:??1940?? Chief Complaint/Reason for Consult FROM [facility] W/FAMILY. HX SEIZURES BUT NOW MORE FREQUENT, MULTIPLE TIMES A DAY. NO EPISODE W/EMS, UNSURE IF ONE AT CLINIC. [place]. History of Present Illness Mr. Cohen, 82-year-old male with history of Lewy body dementia, hypothyroidism, anemia, BPH, history of bowel perforation, CKD, history of PE, labile blood pressure, macular degeneration, and seizures, January 2022 had reported seizure frequency of 1 times per week lasting 5 minutes who is now referred to the ED after he apparently has been having worsening of his seizures.?? It was reported that he he was being fed on the bed when he had fallen backwards and had a seizure.?? Again occurred same day when he was getting into the van.?? Now it is happening multiple times every day without anyposition changes.?? Family did not think that medication has been working anymore.?? They had reported previously antiseizure medications was??effective. Review of Systems not able to obtain from patient Physical Exam Vitals & Measurements T:??98.2?F?? HR:??70??(Peripheral)?? RR:??16?? BP:??137/69?? SpO2:??94%?? HT:??164??cm?? WT:??66??kg?? BMI:??24.54? GENERAL APPERANCE: ??elderly male HEENT:??NC/AT NECK: supple, LUNGS: ??Normal I:E ABD: soft, ND, NT. NEURO:??only moans to tactile stim/passive range of motion, does?? not answer to name, no commands Cranial Nerves:?? Pupils: forces eyes shut Visual: not able to test Extra ocular movements: Intact Facial; symmetric Hearing: intact bilaterally to finger rub Speech: moaning only Tongue: Protrudes Midline Gag: soft palate raises equally Shoulder shru/5 Neck musculature: 5/5 Motor Exam: Strength:??increased tone thoughout, anti-gravity in b/l UEs and b/l LEs. Sensory: responding to LT throughout Coordination: not able to test ?? (10/20/2022 18:[address] Head/Brain W/O Contrast) ?? IMPRESSION: ?? Extensively motion degraded exam. ?? No acute intracranial hemorrhage or mass effect. ?? WSN: [id number] [1] ?AEEG 08/31/2020 IMPRESSION:??This 20-hour ambulatory EEG, recorded with the patient in the awake, drowsy, and asleep states, without instructions for sleep deprivation, is abnormal due to the following findings:?? 1. Biposterior left>right-sided sharp wave discharges, consistent with a potential epileptogenicfocus involving that region;?? 2. Diffuse slowing of background rhythms with generalized intermittent rhythmic delta (GIRDA) activity, as well as generalized periodic discharges which occurred in a waxing and waning fashion and attimed demonstrated a triphasic morphology. These findings are consistent with a moderate to severe diffuse encephalopathy.?? There were no rhythmic or evolving patterns that met criteria for electrographic seizure. However, if there are clinical events concerning for intermittent seizure activity, video EEG could be considered for further characterization and clinical correlation of the findings described above.?? Incidental note is made of occasional irregularly-conducted beats on single- channel tile installer, and clinical correlation is advised.?? MICHELLE Maravilla MD? brain MRI 03/18/2009 FINDINGS ?: ? The major intracranial flow-voids through the [place] of [place] appear?? patent, and no diffusion abnormality is present to indicate acute or ?? subacute infarction. No mass effect, large intracranial mass, or large extra-axial fluid collection is seen. The cervicomedullary junction is unremarkable. ? There is mild-moderate proportionate prominence of the ventricles and?? sulci which is compatible with nonspecific parenchymal volume ? loss/atrophy. No marked hippocampal atrophy is suspected. ? Very mild patchy T2 hyperintense signals present within the posterior?? periventricular white matter. These changes are nonspecific, but may ?? represent chronic microangiopathic/small vessel ischemic change given?? the patients age. ? The visualized extra cranial soft tissues and orbital structures are ?? unremarkable. ? CONCLUSION ?: ? 1. MILD-MODERATE NONSPECIFIC PARENCHYMAL VOLUME LOSS/ATROPHY. ? 2. ADDITIONAL FINDINGS ABOVE. ? Assessment/Plan 82-year-old male with history of Lewy body dementia and seizures??who comes in with reported increased frequency of seizures and also dizziness, in January 2022 he was having a seizure frequency of 1 time per day and apparently this is worsening.?? Patient does not appear to be seizing at this point in time??however given his dementia he is largely mute but he does respond to tactile stimuli andis forcing eyes shut. ??At present we will try to further characterize these spells with video EEG which patient can??be remained on [place] [id number], no need to move to a video EEG network but at this time.?? Please continue him on his home AEDs and check the levels on the Keppra and the Depakote along with LFTs and ammonia level.?? Will likely need restraints to keep his??EEG leads in place. ??Seizure precautions.?INfection surveillance as per primary team. dw Dr. Ordaz. Will follow Please call for any questions. 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 Bedoya BPH (benign prostatic hyperplasia) Cerumen impaction Chronic pruritus, skin CKD - chronic kidney disease Constipation COVID-19 Dementia Developmental delay Dry eyes, bilateral Hearing loss History of pulmonary embolism Hypotension Lewy body dementia Low back pain Muscular deconditioning Myalgia Orthostatic hypotension Pain of right sacroiliac joint Pre-syncope Seizures Severe muscle deconditioning Tinea cruris Unintentional weight loss Urinary incontinence Vitamin D deficiency Procedure/Surgical History Upper gastrointestinal endoscopy including esophagus, stomach, and either the duodenum and/or jejunum as appropriate; with biopsy, single or multiple: 01/11/14 Home Medications DiphenhyrdAMINE Topical: 1 application, Topically, 3 times a day, PRN (for itching) Divalproex Sodium: See Instructions, 1 tablet By Mouth in the AM and 2 tablet at bedtime Docusate: 100 mg = 1 capsule, By Mouth, 2 times a day, PRN (for constipation) Durable Medical Equipment: See Instructions, Size Large. Use up to 8 daily for urinary [id number] Durable Medical Equipment: See Instructions, Use as needed for urinating. Pt bedbound, unable to ambulate to bathroom due to lewy body dementia. Z74.01, G31.83 Durable Medical Equipment (Attends dry-sob ??size 30x36): See Instructions, Use bed bads as needed at night, up to 3 per night, for urinary incontinence R32 Durable Medical Equipment (Hospital Bed Mattress): See Instructions, Use on hospital bed to preventpressure ulcers. Replacement due to worn mattress and skin changes. Z74.01 Durable Medical Equipment (hydrocolloid dressing) (hydrocolloid dressing): See Instructions, 4 x2 or largerUse to cover pressure ulcer on posterior hip/low back.Change 1-2 times dailyKeep clean withsoap and [id number] L89.92 Durable Medical Equipment (Barrier cream): See Instructions, Apply to buttock and low back where ptis at risk of pressure ulcers and exposure to urine. Apply three times a day or as needed.ICD10: L89.92, R54, Z74.01Dispense 2 large tubes per month Durable Medical Equipment (Washable Code Official Bed Pads): See Instructions, Use as needed for total incontinence, bedbound N39.498, Z74.01 Durable Medical Equipment (oral care swabs): See Instructions, Use up to 8 per day to moisten the mouth due to dry mouth and dementia R68.2, G31.83 Durable Medical Equipment: See Instructions, 350 kcal, 8oz, q 8 hrs by mouthEnsure Plus Vanilla, 1 can TID by mouth, for unintended weight loss related to advanced dementia R63.4, G31.83 Durable Medical Equipment (Large Pull Up Diapers) (Large Pull Up Diapers): See Instructions, Use upto 8 daily as needed for urinary and stool incontinence R32 R15.9. To replace regular diapers Durable Medical Equipment (wipes) (wipes): See Instructions, Use to clean patient for urinary and stool incontinence R15.9, R32 Emollients, Topical: 1 application, Topically, 2 times a day Guaifenesin: 400 mg = 1 tablet, By Mouth, Every 4 hours, PRN (as needed for congestion and cough) Lactulose: 10 Gm = 15 mL, By Mouth, Daily, PRN (as needed for constipation) levETIRAcetam: 500 mg = 1 tablet, By Mouth, 2 times a day Levothyroxine: 75 mcg = 1 tablet, By Mouth, Daily, TK 1 T PO ??D Lidocaine Topical: 1 application, Topically, 2 times a day, PRN (Pain , Mild) Midodrine: 1 tablet, By Mouth, 3 times a day Miscellaneous Rx (Barrier cream): See Instructions, Apply to area of darkened skin around coccyx 3-4 times daily to prevent skin breakdown. Dx: stage 1 pressure ulcer L89.91 Ocular Lubricant: 1 drops, Eyes, Both, 4 times a day, PRN (Dry Eyes) Omeprazole: 1 capsule, By Mouth, Daily Trazodone: 2 tablet, By Mouth, Daily at bedtime Allergies penicillin??(rash) Social History Alcohol Use: Never. Employment/School Status: Disabled. Exercise Self assessment: Poor condition. Home/Environment Living situation: Home with assistance. Nutrition/Health Diet: Regular. Sexual Sexually involved in last 6 months: No. Substance Abuse Use: Never. Tobacco Former smoker Family History No family history recorded. [1]??CT Head/Brain W/O Contrast; Quang Lieberman MD 10/20/2022 18:51 EDT * Nick Ordaz MD: PERFORM Event Display: Consultation Note Authored Date: [id number] Attending PA/BRUSH STAINER Attestation:??I have reviewed the patient's medical history, findings on examination, diagnosis and treatment plan as documented in the PA/BRUSH STAINER note. Case and its management discussed with PA/BRUSH STAINER. Note * Sangita Saucedo RN: PERFORM Event Display: Discharge/Transfer Note Hospital Authored Date: [id number] Nursing Discharge Note Entered On: 10/25/2022 16:43 EDT Performed On: 10/25/2022 16:42 EDT by Sangita Saucedo RN Nursing Discharge Note 2 Discharge Time : 10/25/2022 16:42 EDT Discharge Level of Care at Discharge : Home/Care Home/Foster Care Patient Left Unit Via : Ambulance Patient Accompanied Off Unit with : Ambulance/Chair Van Personnel Handover Given to Transport Personnel : Yes DC Instructions Provided & Signed by Pt : No Patient Understands D/C Instructions : No Verbalized Understanding of D/C Plan By : Family Patient Instructions Discharge Signed : No Instructions for Discharge Comments : reviewed with Carlos over the phone Did Pt have Specialty Bed or Wound Vac : Yes Sangita Saucedo RN - 10/25/2022 16:42 EDT * Rajesh Jesus DO: MODIFY, PERFORM Event Display: Discharge/Transfer Note Hospital Authored Date: [id number] Patient: ??ESCOBAR COHEN ? Age:??82 Years?Sex:??Male?:??1940?? Patient Information Discharge Location: A Primary Care Physician: Roberta Felipe NP Admit Date/Time: 10/20/22 20:02 Discharge Date:??10/25/2022 11:11 Discharge Disposition Discharge Disposition: Home: No Services Discharge Diagnosis Dementia (F03.90) Hypertension (I10) Hypothyroidism (E03.9) Seizure disorder (G40.909) ?? _ Discharge Medications DiphenhyrdAMINE Topical (diphenhydrAMINE 2% topical cream)?1?valdez?Topically?3 times a day?as needed?for itching Divalproex Sodium (Depakote 250 mg oral enteric coated tablet)?See Instructions?1 tablet By Mouth in the AM and 2 tablet at bedtime Docusate (docusate sodium 100 mg oral capsule)?100?Milligram?1?capsule?By Mouth?2times a day?as needed?for constipation Durable Medical Equipment (Diapers)?See Instructions?Size Large. Use up to 8 daily for urinary incontinence R32 Durable Medical Equipment (Urinal)?See Instructions?Use as needed for urinating. Pt bedbound,unable to ambulate to bathroom due to lewy body dementia. Z74.01, G31.83 Durable Medical Equipment (Attends dry-sob ??size 30x36)?See Instructions?Use bed bads as needed at night, up to 3 per night, for urinary incontinence R32 Durable Medical Equipment (Hospital Bed Mattress)?See Instructions?Use on hospital bed to prevent pressure ulcers. Replacement due to worn mattress and skin changes. Z74.01 Durable Medical Equipment (hydrocolloid dressing)?See Instructions?4 x2 or largerUse to cover pressure ulcer on posterior hip/low back.Change 1-2 times dailyKeep clean with soap and [id number] Durable Medical Equipment (Barrier cream)?See Instructions?Apply to buttock and low back where pt is at risk of pressure ulcers and exposure to urine. Apply three times a day or as needed.ICD10: L89.92, R54, Z74.01Dispense 2 large tubes per month Durable Medical Equipment (Washable Code Official Bed Pads)?See Instructions?Use as needed for totalincontinence, bedbound N39.498, Z74.01 Durable Medical Equipment (oral care swabs)?See Instructions?Use up to 8 per day to moisten the mouth due to dry mouth and dementia R68.2, G31.83 Durable Medical Equipment (Nutritional Supplements)?See Instructions?350 kcal, 8oz, q 8 hrs by mouthEnsure Plus Vanilla, 1 can TID by mouth, for unintended weight loss related to advanced dementia R63.4, G31.83 Durable Medical Equipment (Large Pull Up Diapers)?See Instructions?Use up to 8 daily as needed for urinary and stool incontinence R32 R15.9. To replace regular diapers Durable Medical Equipment (wipes)?See Instructions?Use to clean patient for urinary and stoolincontinence R15.9, R32 Emollients, Topical (Eucerin Eczema Relief topical cream)?1?valdez?Topically?2 times a day Guaifenesin (guaiFENesin 400 mg oral tablet)?1?tab(s)?400?Milligram?By Mouth?Every 4 hours?as needed?as needed for congestion and cough Lactulose (lactulose 10 gm/15 ml oral syrup)?15?Milliliter?10?gram?By Mouth?Daily?as needed?as needed for constipation levETIRAcetam (levETIRAcetam 500 mg oral tablet)?1?tab(s)?500?Milligram?By Mouth?2 times a day Levothyroxine (levothyroxine 75 mcg (0.075 mg) oral tablet)?1?tab(s)?75?Microgram?ByMouth?Daily?TK 1 T PO ??D Lidocaine Topical (lidocaine 4% mucous membrane solution)?1?valdez?Topically?2 times a day?as needed?Pain , Mild Midodrine (midodrine 5 mg oral tablet)?1?tablet?By Mouth?3 times a day Miscellaneous Rx (Barrier cream)?See Instructions?Apply to area of darkened skin around coccyx 3-4 times daily to prevent skin breakdown. Dx: stage 1 pressure ulcer L89.91 Ocular Lubricant (Artificial Tears preserved solution)?1?Drops?Eyes, Both?4 times a day?as needed?Dry Eyes Omeprazole (omeprazole 40 mg oral enteric coated capsule)?1?capsule?By Mouth?Daily Trazodone (traZODone 50 mg oral tablet)?2?tablet?By Mouth?Daily at bedtime ? Future Appointments Tuesday 7:45 AM EDT ?? With: Fletcher CENTENO, Seth Merida Where: [facility] [address], [address] [place] [address]- Status: Pending Hospital Course ??82-year-old male with history of dementia, seizure disorder, GERD, hypothyroidism??presents from PCP office due to concern for??breakthrough seizures.? Seizure disorder (G40.909):??Not entirely convinced that these episodes are seizures.??No tongue biting, bladder or bowel incontinence.??He comes back to baseline within 10 minutes.??The episodes occur when he is moving??from a seated position.??May be syncopal episodes.??Reviewed his neurology office note from about 6 months ago.??They were considering increasing??his antiepileptic??dosage??but family??decided not to??given frequency??and possibility of increased drowsiness. ?? Patient is Iraqi-speaking. ??Upon inquiry it seems that patient??at baseline is not able to??take part actively in conversation. ??He can only say yes or no. -Has baseline advanced dementia. ??Has a history of upper and lower extremity??contractures. -On examination??patient was able to move his??all 4 extremities, sensation intact. ??Limited neuroexam??in setting of baseline dementia. ?? neurology was consulted due to breakthrough seizures. -VEEG started on 10/21 to further??characterize these spells, there was no epileptiform activity, noseizures, excessive slowing noted. He had no reported seizures like episodes. He has no significant metabolic derangements, LFTs nml, ammonia nml. ??continue him on his home AEDs without dose changes ?? family primarily reports pt feeling dizzy during these episodes and is shaking./tremulous. ??this could all be explained by dehydration and orthostatic hypotension. on day of discharge met with son and explained hospital course in detail, with use of thumb sewer Son is agreeable for discharge home today via ambulance, family will be home to receive him. ? #Dysphagia??: speech therapist evaluated and recommended??: dysphagia level??1 pur??ed diet.?? - ?? #bruce on ckd III - resolved Labs??showed??elevated renal function??seems more likely hypovolemic/decreased??oral intake. resolved with IVF ? #advanced??dementia/failure to thrive. ?? Patient seems to be-having failure to thrive. family uninterested in having goc conversation at this tme ? Hypertension (I10):?? hypotensive- likely secondary to volume depletion and initiation of amlodipine STOPPED amlodipine scheduled midodrine as was taking at home BP has nor??normalized ? Objective Vital Signs?? Temperature: 97.4 DegF (10/25/22 07:00:00) Temperature Route: Temporal (10/25/22 07:00:00) Pulse Rate: 75 bpm (10/25/22 09:42:00) Respiratory Rate: 16 br/min (10/25/22 07:00:00) Systolic Blood Pressure:??154 mm Hg??High (10/25/22 09:42:00) Diastolic Blood Pressure: 69 mm Hg (10/25/22 09:42:00) Blood pressure sites: Arm, right (10/25/22 07:00:00) Mean Arterial Pressure: 103 mm Hg (10/25/22 04:20:00) Pulse Pressure: 30 mm Hg (10/25/22 04:20:00) Oxygen Saturation: 100 % (10/25/22 07:00:00) Mode of Delivery (Oxygen): Room air (10/25/22 07:00:00) Early Warning Score: 5 (10/25/22 09:44:43) ? Consultants neurology Pending Results Add On Lab Order ordered on 10/21/2022 Add On Lab Order ordered on 10/21/2022 Add On Lab Order ordered on 10/21/2022 Eosinophils Urine ordered on 10/23/2022 Hold Lavender Tube (BB) ordered on 10/20/2022 Follow-Up Appointments Added Follow Up ?Time Frame ?Comments Destinee JIMENEZ, Roberta Merida Results Discharge Labs BLOOD COUNT & DIFF WBC 5.0 k/mm3 ()?? 10/24/2022 02:15 RBC 2.75 m/mm3 (Low)?? 10/24/2022 02:15 Hgb 8.7 Gm/dL (Low)?? 10/24/2022 02:15 Hct 28.0 % (Low)?? 10/24/2022 02:15 MCV 101.8 femtoliters (High)?? 10/24/2022 02:15 MCH 31.6 pg ()?? 10/24/2022 02:15 MCHC 31.1 g/dL (Low)?? 10/24/2022 02:15 Platelet Count 111 k/mm3 (Low)?? 10/24/2022 02:15 RDW-SD 55.9 femtoliters (High)?? 10/24/2022 02:15 MPV 12.7 femtoliters (High)?? 10/24/2022 02:15 Nucleated RBC (Automated) 0.0 #/100 WBC'S ()?? 10/24/2022 02:15 Abs. NRBC 0.0 k/mm3 ()?? 10/24/2022 02:15 Abs. Neut 2.8 k/mm3 ()?? 10/24/2022 02:15 Abs. Lymph 1.4 k/mm3 ()?? 10/24/2022 02:15 Abs. [place] 0.6 k/mm3 ()?? 10/24/2022 02:15 Abs. Eo 0.2 k/mm3 ()?? 10/24/2022 02:15 Abs. Baso 0.0 k/mm3 ()?? 10/24/2022 02:15 Neut % 56.1 % ()?? 10/24/2022 02:15 Lymph % 28.0 % ()?? 10/24/2022 02:15 [place] % 11.1 % (High)?? 10/24/2022 02:15 Eos % 3.0 % ()?? 10/24/2022 02:15 Baso % 0.6 % ()?? 10/24/2022 02:15 Imm Gran 1.2 % ()?? 10/24/2022 02:15 Abs. Imm Gran 0.1 k/mm3 ()?? 10/24/2022 02:15 ?? CARDIAC CK, Total 76 units/L ()?? 10/21/2022 06:35 Nt-Probnp 1267 pg/mL (High)?? 10/20/2022 15:50 High Sensitivity Troponin (HSTnT) 76 ng/L (Critical)?? 10/20/2022 15:50 ? CHEM GENERAL Sodium 144 mmol/L ()?? 10/25/2022 05:26 Potassium 5.4 mmol/L (High)?? 10/25/2022 05:26 Chloride 117 mmol/L (High)?? 10/25/2022 05:26 Bicarbonate Level 22 mmol/L ()?? 10/25/2022 05:26 Anion Gap 5 ()?? 10/25/2022 05:26 Glucose Level 106 mg/dL (High)?? 10/23/2022 03:31 BUN 25 mg/dL (High)?? 10/25/2022 05:26 Creatinine-Blood 1.3 mg/dL (High)?? 10/25/2022 05:26 Estimated GFR Creatinine 56 ML/MIN/1.73 M2 ()?? 10/25/2022 05:26 Calcium 7.7 mg/dL (Low)?? 10/23/2022 03:31 Calcium, Ionized pH Corrected 1.28 mmol/L ()?? 10/20/2022 15:50 Magnesium 2.3 mg/dL ()?? 10/20/2022 15:50 Protein, Total 6.0 Gm/dL (Low)?? 10/21/2022 06:35 Albumin 3.0 Gm/dL (Low)?? 10/21/2022 06:35 AG Ratio 1.0 ()?? 10/20/2022 15:50 Alkaline Phosphatase 80 units/L ()?? 10/21/2022 06:35 AST (SGOT) 21 units/L ()?? 10/21/2022 06:35 ALT (SGPT) 10 units/L ()?? 10/21/2022 06:35 Bilirubin, Total 0.2 mg/dL ()?? 10/21/2022 06:35 Bilirubin, Direct <0.2 mg/dL ()?? 10/21/2022 06:35 Bilirubin, Indirect Direct bilirubin is less than the measureable limit. Therefore, indirect mg/dL ()?? 10/21/2022 06:35 Lactate 1.3 mmol/L ()?? 10/23/2022 03:31 ?? COAG INR 1.0 ()?? 10/20/2022 15:50 Protime (PT) 10.9 seconds ()?? 10/20/2022 15:50 APTT 24.6 seconds ()?? 10/20/2022 15:50 ? ENDOCRINE/TUMOR MARKER TSH 7.73 uIU/mL (High)?? 10/20/2022 15:50 Free T4 1.46 ng/dL ()?? 10/20/2022 15:50 ?? HEME OTHER Hold Lavender Top SPECIMEN DISCARDED AFTER 24 HOURS. ()?? 10/25/2022 05:26 ? MISC. CHEMISTRY Ammonia, Venous 23 ??mole/L ()?? 10/21/2022 16:07 ? TOXICOLOGY/TDM Dilantin Level <0.8 mg/L (Low)?? 10/21/2022 06:35 Valproic Level 50.8 mg/L ()?? 10/23/2022 03:31 Levetiracetam Level 43.40 mg/L ()?? 10/22/2022 05:58 ? UA/URINALYSIS Appear/Color, Urine LIGHT YELLOW ()?? 10/20/2022 15:40 Specific [place], Urine 1.022 ()?? 10/20/2022 15:40 pH, Urine 7.0 ()?? 10/20/2022 15:40 Albumin, Urine TRACE (Abnormal)?? 10/20/2022 15:40 Glucose, Urine NEGATIVE ()?? 10/20/2022 15:40 Ketones, Urine NEGATIVE ()?? 10/20/2022 15:40 Bilirubin, Urine NEGATIVE ()?? 10/20/2022 15:40 Hemoglobin, Urine NEGATIVE ()?? 10/20/2022 15:40 Nitrite, Urine NEGATIVE ()?? 10/20/2022 15:40 Leukocyte, Urine NEGATIVE ()?? 10/20/2022 15:40 Urobilinogen NORMAL mg/dL ()?? 10/20/2022 15:40 WBC's, Urine 1 /HPF ()?? 10/20/2022 15:40 RBC's, Urine 2 /HPF ()?? 10/20/2022 15:40 Squamous Epith <1 /HPF ()?? 10/20/2022 15:40 Mucus SLIGHT /LPF ()?? 10/20/2022 15:40 Hold Urine Culture Testing available 48 hours from time of collection. ()?? 10/20/2022 15:40 ?? URINE OTHER Eos, Urine <2 WBC/HPF, % EOS NOT CALCULATED % ()?? 10/23/2022 17:45 Creatinine, Urine Random 32.5 mg/dL ()?? 10/23/2022 17:45 Sodium, Urine Random 148 mmol/L ()?? 10/23/2022 17:45 Chloride, Urine Random 149 mmol/L ()?? 10/23/2022 17:45 Osmolality, Urine Random 427 mOsm/kg ()?? 10/23/2022 17:45 ? VIROLOGY COVID-19 by RT-PCR NEGATIVE ()?? 10/20/2022 15:44 ? Microbiology ?? COVID-19 (Novel Coronavirus), Rapid PCR?? Completed?? Source: Nasal Body Site: Nose Collected Dt/Tm: 10/20/2022 15:12 Last Updated Dt/Tm: 10/20/2022 18:27 ? 35_ minutes spent on discharge * Isabel Hahn RN: PERFORM Event Display: Discharge/Transfer Note Hospital Authored Date: [id number] Discharge Planning Nursing Entered On: 10/25/2022 10:03 EDT Performed On: 10/25/2022 10:03 EDT by Isabel Hahn RN Discharge Planning Nursing Anticipated discharge : [facility] facility Isabel Hhan RN - 10/25/2022 10:03 EDT * Sangita Saucedo RN: PERFORM Event Display: Patient Education/Instruction Authored Date: [id number] Inpatient Adult Discharge Instructions [place] [id number] Name: ESCOBAR COHEN : 1940 Visit: 10/20/2022 20:02:00 Current Date: 10/25/2022 16:18 Account: [id number] Inpatient Adult Discharge Instructions We would like to thank you for allowing us to assist you with your healthcare needs. The following includes patient education materials and information regarding your injury/illness. Our entire staffstrives to provide an excellent experience for our patients and their families. PLEASE ENSURE YOU FOLLOW-UP PER THE INSTRUCTIONS BELOW! ?? YOUR OPINION IS IMPORTANT TO US! Please complete the survey you may receive by mail or email. Your feedback will be used to make improvements to the healthcare experiences of our patients and their families. Surveys are administered by [employer] ?? If further treatment with your primary care physician or another doctor is recommended, it is important for you to keep the appointment. Call your primary care physician or return to the Emergency Department immediately if your condition worsens, fails to improve, or new symptoms develop. If you need to find a doctor, you can call [facility] for a referral at [phone] or toll free at [phone]) or log in to [email or web address].. ?? You can view and manage your care through the patient portal or by using a health care valdez of your choosing. [employer] is a website that allows you to securely view your medical information including your hospital discharge summary, office visit summaries, medications and follow-up visits. You can also request appointments, renew medications, and request access to your medical information using a health care valdez of your choosing, or just ask a question. You can enroll at [email or web address] or register during your next office visit. You have been discharged from [facility], Patient Care Unit: S3. If you have any questions regarding these instructions after you leave, please call us and we will be happy to assist you. [facility] Your Care Team Attending Physician Rajesh Jesus DO Discharging Providers Rajesh Jesus DO Reason for Admission FROM [facility] W/FAMILY. HX SEIZURES BUT NOW MORE FREQUENT, MULTIPLE TIMES A DAY. NO EPISODE W/EMS, UNSURE IF ONE AT CLINIC. [place]. Your Diagnosis Seizure disorder Hypertension Hypothyroidism Dementia Tests Performed Below is a partial list of the tests performed during your hospitalization. You may have had other tests and procedures not included in this list. Please discuss all test results with your provider. Ammonia Venous Basic Metabolic Panel BUN Calcium Ionized CBC CBC w/ Differential CK (CREATINE KINASE) Comprehensive Metabolic Panel COVID-19 (Novel Coronavirus), Rapid PCR Creatinine Depakote Level DILANTIN Electrolytes FREE T4 HEPATIC FUNCTION PANEL High??Sensitivity??Troponin T HOLD LAVENDER TUBE INR Lactate Level Levetiracetam Level Magnesium Level ProBNP PTT TSH with T4 Reflex (Adults Only) Urinalysis w/hold for Urine Culture Urine Chloride Urine Creatinine URINE EOS Urine Eosinophils?-- Results Pending -- Urine Na Urine Osmolality CT Head/Brain W/O Contrast XR Chest Single Frontal View You will be contacted within 72 hours with your results. Primary Care Provider Roberta Felipe NP Advance Directive Health Care Proxy on File Yes - Health Care Proxy Yes - MOLST Discharge Vitals Temperature: 97.4 DegF Height: 164 cm Pulse Rate: 74 bpm Weight: 59 kg Respiratory Rate: 18 br/min Body Mass Index: 21.94 kg/m2 Systolic Blood Pressure:??151 mm Hg??High Body surface area: 1.64 Diastolic Blood Pressure:??86 mm Hg??High ?? Oxygen Saturation: 100 % ?? Studies Pending All tests and labs ordered during this hospital stay have been completed unless listed below. Please discuss all pending results with your provider listed above in these instructions. ?? Add On Lab Order (Lab Add On Order) Eosinophils Urine (Urine Eosinophils) Hold Lavender Tube (BB) What to do next Instructions From Your Doctor Discharge Orders Scheduled Follow-Up Appointments Tuesday 7:45 AM EDT ?? With: Fletcher CENTENO, Seth Merida Where: [facility] [address] [place] [address], [address] [place] [address]- Status: Pending You Need to Schedule the Following Appointments Follow Up with??Destinee JIMENEZ, Roberta Merida Where: ?? Discharge Medications ESCOBAR COHEN :1940 Visit Date:10/20/2022 Medications: Please continue your medications until treatment is completed or stopped by your provider. Medications not listed below should be discontinued. Discuss any questions related to medications with your provider. What How Much When Why Instructions Next Dose Unchanged DiphenhyrdAMINE Topical (diphenhydrAMINE 2%topical cream) 1 valdez Topically 3 times a day as needed for for itching Itching as prescribed Unchanged Divalproex Sodium (Depakote 250 mg oral enteric coated tablet) See instructions 1 tablet By Mouth in the AM and 2 tablet at bedtime ?? 10/25?? PM Unchanged Docusate (docusate sodium 100 mg oral capsule) 1 capsule Oral Twice a day as needed for for constipation 10/25?? PM if needed Unchanged Durable Medical Equipment (Attends dry-sob size 30x36) See instructions Urinary incontinence Use bed bads as needed at night, up to 3 per night, for urinary incontinence R32 ?? Unchanged Durable Medical Equipment (Barrier cream) See instructions Pressure injury, stage 2, with infection Frailty Bedbound Apply to buttock and low back where pt is at risk of pressure ulcers and exposure to urine. Apply three times a day or as needed. ICD10: L89.92, R54, Z74.01 Dispense 2 large tubes per month ?? Unchanged Durable Medical Equipment (Diapers) See instructions Size Large. Use up to 8 daily for urinary incontinence R32 ?? Unchanged Durable Medical Equipment (Hospital Bed Mattress) See instructions Bedbound Use on hospital bed to prevent pressure ulcers. Replacement due to worn mattress and skin changes. Z74.01 ?? Unchanged Durable Medical Equipment (hydrocolloid dressing) See instructions Pressure injury, stage 2, with infection 4 x2 or larger Use to cover pressure ulcer on posterior hip/ low back. Change 1-2 times daily Keep clean with soap and water ICD10 L89.92 ?? Unchanged Durable Medical Equipment (Large Pull Up Diapers) See instructions Urinary incontinence Stool incontinence Use up to 8 daily as needed for urinary and stool incontinence R32 R15.9. To replace regular diapers ?? Unchanged Durable Medical Equipment (Nutritional Supplements) See instructions Lewy body dementia Unintended weight loss 350 kcal, 8oz, q 8 hrs by mouth Ensure Plus Vanilla, 1 can TID by mouth, for unintended weight loss related to advanced dementia R63.4, G31.83 ?? Unchanged Durable Medical Equipment (oral care swabs) See instructions Dry mouth Lewy body dementia Use up to 8 per day to moisten the mouth due to dry mouth and dementia R68.2, G31.83 ?? Unchanged Durable Medical Equipment (Urinal) See instructions Bedbound Lewy body dementia Urinary incontinence Use as needed for urinating. Pt bedbound, unable to ambulate to bathroom due to lewy body dementia.Z74.01, G31.83 ?? Unchanged Durable Medical Equipment (Washable Code Official Bed Pads) See instructions Bedbound Total incontinence Use as needed for total incontinence, bedbound N39.498, Z74.01 ?? Unchanged Durable Medical Equipment (wipes) See instructions Incontinent of feces Incontinent of urine Use to clean patient for urinary and stool incontinence R15.9, R32 ?? Unchanged Emollients, Topical (Eucerin Eczema Relief topical cream) 1 valdez Topically Twice a day Dry skin as prescribed Unchanged Guaifenesin (guaiFENesin 400 mg oral tablet) 1 tab(s) Oral Every 4 hours as needed for as needed for congestion and cough Cough as prescribed Unchanged Lactulose (lactulose 10 gm/ 15 ml oral syrup) 15 Milliliter Oral Daily as needed for as needed for constipation as prescribed Unchanged levETIRAcetam (levETIRAcetam 500 mg oral tablet) 1 tab(s) Oral Twice a day 10/25?? PM Unchanged Levothyroxine (levothyroxine 75 mcg (0.075 mg) oral tablet) 1 tab(s) Oral Daily TK 1 T PO ??D ?? 10/26?? AM Unchanged Lidocaine Topical (lidocaine 4% mucous membrane solution) 1 valdez Topically Twice a day as needed for Pain , Mild as prescribed Unchanged Midodrine (midodrine 5 mg oral tablet) 1 tab(s) Oral 3 times a day 10/25?? PM Unchanged Miscellaneous Rx (Barrier cream) See instructions Pressure ulcer, stage 1 Apply to area of darkened skin around coccyx 3-4 times daily to prevent skin breakdown. Dx: stage 1pressure ulcer L89.91 ?? Unchanged Ocular Lubricant (Artificial Tears preserved solution) 1 Drops Both eyes 4 times a day as needed for Dry Eyes as prescribed Unchanged Omeprazole (omeprazole 40 mg oral enteric coated capsule) 1 capsule Oral Daily 10/26?? AM Unchanged Trazodone (traZODone 50 mg oral tablet) 2 tab(s) Oral Daily at Bedtime 10/25?? PM Test Results Below is a partial list of the most recent Laboratory test results done prior to this discharge. You may have had other tests and procedures not included in this list. Please discuss all test resultswith your provider. Ammonia Venous (10/21/2022) ???Ammonia, Venous - 23 ??mole/L Basic Metabolic Panel (10/23/2022) ???Sodium - 139 mmol/L???Potassium - 4.9 mmol/L???Chloride - 111 mmol/L???Bicarbonate Level - 23 mmol/L???Anion Gap - 5???Glucose Level - 106 mg/dL???BUN - 23 mg/dL???Creatinine-Blood - 1.7 mg/dL???Estimated GFR Creatinine - 41 ML/MIN/1.73 M2???Calcium - 7.7 mg/dL BUN (10/25/2022) ???BUN - 25 mg/dL Calcium Ionized (10/20/2022) ???Calcium, Ionized pH Corrected - 1.28 mmol/L CBC (10/21/2022) ???WBC - 7.1 k/mm3???RBC - 3.36 m/mm3???Hgb - 10.7 Gm/dL???Hct - 33.0 %???MCV - 98.2 femtoliters???MCH - 31.8 pg???MCHC - 32.4 g/dL???Platelet Count - 132 k/mm3???RDW-SD - 53.1 femtoliters???MPV - 12.5 femtoliters???Nucleated RBC (Automated) - 0.0 #/100 WBC'S???Abs. NRBC - 0.0 k/mm3 CBC w/ Differential (10/24/2022) ???WBC - 5.0 k/mm3???RBC - 2.75 m/mm3???Hgb - 8.7 Gm/dL???Hct - 28.0 %???MCV - 101.8 femtoliters???MCH - 31.6 pg???MCHC - 31.1 g/dL???Platelet Count - 111 k/mm3???RDW-SD - 55.9 femtoliters???MPV - 12.7 femtoliters???Nucleated RBC (Automated) - 0.0 #/100 WBC'S???Abs. NRBC - 0.0 k/mm3???Abs. Neut - 2.8 k/mm3???Abs. Lymph - 1.4 k/mm3???Abs. [place] - 0.6 k/mm3???Abs. Eo - 0.2 k/mm3???Abs. Baso - 0.0 k/mm3???Neut % - 56.1 %???Lymph % - 28.0 %???[place] % - 11.1 %???Eos % - 3.0 %???Baso % - 0.6 %???Imm Gran - 1.2 %???Abs. Imm Gran - 0.1 k/mm3 CK (CREATINE KINASE) (10/21/2022) ???CK, Total - 76 units/L Comprehensive Metabolic Panel (10/20/2022) ???Sodium - 139 mmol/L???Potassium - 5.8 mmol/L???Chloride - 104 mmol/L???Bicarbonate Level - 23 mmol/L???Anion Gap - 12???Glucose Level - 89 mg/dL???BUN - 26 mg/dL???Creatinine-Blood - 1.6 mg/dL???Estimated GFR Creatinine - 44 ML/MIN/1.73 M2???Calcium - 9.1 mg/dL???Protein, Total - 6.3 Gm/dL???[place]bu min - 3.2 Gm/dL???AG Ratio - 1.0???Alkaline Phosphatase - 86 units/L???AST (SGOT) - 19 units/L???ALT (SGPT) - 10 units/L???Bilirubin, Total - 0.2 mg/dL COVID-19 (Novel Coronavirus), Rapid PCR (10/20/2022) ???COVID-19 by RT-PCR - NEGATIVE Creatinine (10/25/2022) ???Creatinine-Blood - 1.3 mg/dL???Estimated GFR Creatinine - 56 ML/MIN/1.73 M2 Depakote Level (10/23/2022) ???Valproic Level - 50.8 mg/L DILANTIN (10/21/2022) ? ?Dilantin Level - <0.8 mg/L Electrolytes (10/25/2022) ???Sodium - 144 mmol/L???Potassium - 5.4 mmol/L???Chloride - 117 mmol/L???Bicarbonate Level - 22 mmol/L???Anion Gap - 5 FREE T4 (10/20/2022) ???Free T4 - 1.46 ng/dL HEPATIC FUNCTION PANEL (10/21/2022) ???Protein, Total - 6.0 Gm/dL???Albumin - 3.0 Gm/dL???Alkaline Phosphatase - 80 units/L???AST (SGOT) - 21 units/L? ?ALT (SGPT) - 10 units/L? ?Bilirubin, Total - 0.2 mg/dL? ?Bilirubin, Direct - <0.2 mg/dL???Bilirubin, Indirect - Direct bilirubin is less than the measureable limit. Therefore, indirect High??Sensitivity??Troponin T (10/20/2022) ???High Sensitivity Troponin (HSTnT) - 76 ng/L HOLD LAVENDER TUBE (10/25/2022) ???Hold Lavender Top - SPECIMEN DISCARDED AFTER 24 HOURS. INR (10/20/2022) ???INR - 1.0???Protime (PT) - 10.9 seconds Lactate Level (10/23/2022) ???Lactate - 1.3 mmol/L Levetiracetam Level (10/22/2022) ???Levetiracetam Level - 43.40 mg/L Magnesium Level (10/20/2022) ???Magnesium - 2.3 mg/dL ProBNP (10/20/2022) ???Nt-Probnp - 1267 pg/mL PTT (10/20/2022) ???APTT - 24.6 seconds TSH with T4 Reflex (Adults Only) (10/20/2022) ???TSH - 7.73 uIU/mL Urinalysis w/hold for Urine Culture (10/20/2022) ???Appear/Color, Urine - LIGHT YELLOW???Specific [place], Urine - 1.022???pH, Urine - 7.0???Albumin, Urine - TRACE???Glucose, Urine - NEGATIVE???Ketones, Urine - NEGATIVE???Bilirubin, Urine - NEGATIVE???Hemoglobin, Urine - NEGATIVE???Nitrite, Urine - NEGATIVE???Leukocyte, Urine - NEGATIVE???Urobilin ogen - NORMAL? ?WBC's, Urine - 1 /HPF? ?RBC's, Urine - 2 /HPF? ?Squamous Epith - <1 /HPF? ?Mucus- SLIGHT???Hold Urine Culture - Testing available 48 hours from time of collection. Urine Chloride (10/23/2022) ???Chloride, Urine Random - 149 mmol/L Urine Creatinine (10/23/2022) ???Creatinine, Urine Random - 32.5 mg/dL URINE EOS (10/23/2022) ? 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 Adult hypothyroidism?? Anemia?? Bowel perforation, 09/24 at [facility], s/p lap Dr. Bedoya?? BPH (benign prostatic hyperplasia)?? Cerumen impaction?? Chronic pruritus, skin?? CKD - chronic kidney disease?? Constipation?? COVID-19?? Dementia?? Developmental delay?? Dry eyes, bilateral?? Hearing loss?? History of pulmonary embolism?? Hypotension?? Lewy body dementia?? Low back pain?? Muscular deconditioning?? Myalgia?? Orthostatic hypotension?? Pain of right sacroiliac joint?? Pre-syncope?? Seizures?? Severe muscle deconditioning?? Tinea cruris?? Unintentional weight loss?? Urinary incontinence?? Vitamin D deficiency?? Education Materials Below is the list of Educational Leaflet Providered with your Discharge Instructions. First Aid: Seizures?? Valuables and Belongings I fully understand and agree that [facility] accepts no responsibility for all my personal property including clothing, toilet articles, radios, jewelry, dentures, hearing aids, rings, money, or any other property that is in my possession or is brought to me after admission. I understand certain valuables may be placed in a hospital safe for a short period of time. I understand that the hospital is not liable for loss or damage due to accident, fire, or other natural occurrence while said property is in the safe. I accept full responsibility for any personal property that I keep with me, and will not hold the hospital responsible in case of loss or disappearance. I acknowledge that i have been encouraged to send valuables and belongings home. ?? No Valuables/Belongings: No valuables/belongings present Review of Valuable and Belonging List: With patient, With family, With witness Possessions released to: patient arrived to [facility] with no belongings Date for Pt to Sign Valuables/Belongings: 10/25/22 13:55:00 ?? Other Discharge Information ? Case Management Discharge Plan?? Discharge Plan?? Discharge Level of Care at Discharge: Home/Care Home/Foster Care Discharge Transportation Arranged: [facility] [address] [place] [address] [place] ??[phone] Mode of Transportation Arranged: Ambulance Discharge Arranged Transport Date/Time: 10/25/22 16:00:00 ?? Pulmonary Rehab Status?? Pulmonary Rehab Discharge Status?? Respiratory Rate: 18 br/min ? Common Emergency Awareness Tips IS IT A STROKE? Act FAST and Check for these signs: FACE Does the face look uneven? ARM Does one arm drift down? SPEECH Does their speech sound strange? TIME Call at any sign of stroke ?? Heart Attack Signs Chest discomfort: Most heart attacks involve discomfort in the center of the chest and lasts more than a few minutes, or goes away and comes back. It can feel like uncomfortable pressure, squeezing, fullness or pain. Discomfort in upper body: Symptoms can include pain or discomfort in one or both arms, back, neck, jaw or stomach. Shortness of breath: With or without discomfort. Other signs: Breaking out in a cold sweat, nausea, or lightheaded. Remember, MINUTES DO MATTER. If you experience any of these heart attack warning signs, call to get immediate medical attention! ?? Smoking can increase your chances of developing chronic health problems and can cause harmful effects to other family members in your house. If you smoke, you are strongly encouraged to quit. Please call [facility] [facility] at [phone] or [phone] ([phone]) or log in to [email or web address] for referrals to smoking cessation programs. ?? 252 Suicide & Crisis Lifeline is available 04/10 if you or someone you know needs to find a reason to keep living. By calling 617 you'll be connected to a skilled, trained counselor at a crisis center in your area. INPATIENT DISCHARGE INSTRUCTIONS SIGNATURE PAGE ESCOBAR COHEN Location:[facility] Registration Date and Time:10/20/2022 20:02 EDT Primary Care Physician: Roberta Felipe NP, Attending Physician: Rajesh Jesus DO, I ESCOBAR COHEN, have received the above patient education materials/instructions and have verbalized understanding. If ambulance or transport services are being used I further acknowledge being given a choice of service. ?? If you need to contact me, please call me at this number: . Patient/Circus Rider Name: Patient/Circus Rider Signature: Relationship to Patient: Witness Name/Signature: Date: * Sangita Saucedo RN: PERFORM Event Display: Patient Education Leaflets Authored Date: [id number] First Aid: Seizures ?? [id number] Primeros auxilios: Convulsiones Un ataque es el resultado de charito descarga repentina de impulsos el??ctricos anormales al cerebro. Los s??ntomas pueden variar desde charito desorientaci??n indio a espasmos musculares incontrolables. En muchos casos, la persona se desvanece (pierde el conocimiento). Charito convulsi??n puede ser causada por fiebre kate, heridas en la fara, charito reacci??n a un medicamento, un ataque cerebral, charito infecci??n o afecciones tales reshma la epilepsia. Paso??1. Proteja la fara Si ve que charito persona est?? teniendo charito convulsi??n, siga estos pasos: ??? Ayude a la persona a recostarse en el suelo si comienza a perder el control de los m??sculos. Col??quela de lado. La ayuda a respirar mejor. Tambi??n ayuda a evitar que se ahogue o que le ingreseun objeto extra??o en las v??as respiratorias (aspiraci??n). ??? Proteja la fara de la persona colocando algo blando debajo, reshma ropa doblada. Adem??s, aleje de la persona todos los objetos que haya cerca. ??? No trate de sujetar a la persona ni de colocarle shaq??n objeto en la boca, ya que podr??a lastimarla. No intente sujetar la lengua de la persona. ??? Qu??tele los anteojos. ?? Paso??2.??Resguarde mary dignidad ??? Evite la aglomeraci??n de curiosos. ??? Tranquilice a la persona afectada. Es posible que est?? confundida, somnolienta o se sienta hostil charito vez que termine la convulsi??n. ??? Cubra a la persona o proporcione ropa seca si los espasmos musculares polanco causado p??rdida de control de la vejiga. ?? Paso 3. Determine si hay heridas ??? Aseg??rese de que el estado mental de la persona se haya normalizado. Charito forma de hacerlo es pregunt??ndole mary nombre, el a??o actual y d??nde se encuentra. ??? Se pueden producir lesiones en la fara, la boca, la lengua o el cuerpo.? Verifique si la persona tiene un brazalete o collar de informaci??n m??dica que contenga instrucciones. ?? Paso 4. Cu??ndo llamar al 911 Llame al 911 de inmediato si ocurre algo de lo siguiente: ??? La convulsi??n dura m??s de 5??minutos (augusto el tiempo de la convulsi??n y de la recuperaci??n es ??til en muchos casos) ??? Ocurre un lily ataque ??? La persona permanece inconsciente ??? La persona est?? embarazada, tiene diabetes o charito enfermedad del coraz??n ??? La persona no tiene antecedentes de convulsiones ??? La persona selesion?? ghanshyam la convulsi??n ?? Last Reviewed Date: 2022 ?? [id number] [email or web address]. Todos los derechos reservados. Esta informaci??n no pretende sustituir la atenci??n m??dica profesional. S??lo mary m??dico puede diagnosticar y tratar un problema de donna. ?? Patient Care team information Care Team Personnel Name: Matilde Mahmood RN Position: [facility] RN Member Role: Primary Care Nurse Name: Roberta Felipe NP Position: [facility] PCO Associate Professional Member Role: PCP Address: Address: [address] [place] [address]- Name: Maci Kruse RN Position: [facility] RN Member Role: Primary Care Nurse Name: Kandis Lehman RN Position: S RN Member Role: Primary Care Nurse Name: Lidya Lyons RN Position: S RN Member Role: Primary Care Nurse Name: Lyudmila Ortez RN Position: [facility] RN Member Role: Primary Care Nurse Name: Lilo Maldonado RN Position: [facility] RN Member Role: Primary Care Nurse Name: Anuj Murillo RN Position: [facility] RN Member Role: Primary Care Nurse Name: Jasmin Oliva Position: [facility] Outreach Member Role: Lifetime Consulting Physician Name: Suzanne Celeste RN Position: [facility] RN Member Role: Primary Care Nurse Name: Lily Solis RN Position: [facility] Onco RN Member Role: Primary Care Nurse Name: Adela Tadeo RN Position: [facility] RN Member Role: Primary Care Nurse Name: Nancy Morrow RN Position: [facility] RN Member Role: Primary Care Nurse Name: Etta Dewitt RN Position: [facility] RN Member Role: Primary Care Nurse Name: Shira BLANKENSHIP Attending Position: [facility] ED Medicine MD Name: Etelvina Reddy RN Position: [facility] ED RN W/OE and Tasks Member Role: Patient Care Provider Name: Marge Love Position: [facility] ED OA Charge Name: Virginia Flowers Position: [facility] ED TA [facility] Member Role: Frame Bander Care Team Related Persons Name: JESSIKA COHEN Address: home [address] [place] [id number] Name: JESSICA JOSUE Address: home [address] [place] [address] Name: CARLOS CEJA Address: [address] [address]
--- OUTSIDE RECORDS SUMMARY | 2023-08-03 18:36 | XMS_ITS | Continuity of Care Document ---
Author Organization [facility] Address [address] [place] [id number]- Care Team Providers Care Rfid Technician Name Role Phone Destinee JIMENEZ, Roberta Merida Primary Care Physician [facility]counter [facility] Date[facility]): 03/22/23 - 04/21/[address] [address] Allergies, Adverse Reactions, Alerts Substance Reaction Severity Status penicillin rash Active Immunizations Given and Recorded Vaccine Date Status Refusal Reason [id number] 12y+ bivalent booster vax 03/05/22 Given influenza [...] inactivated 1 05/31/12 Gi davonte SARS-CoV-2 mRNA (psurvpz-ffjp-myise) vax 06/19/21 Given SARS-CoV-2 (COVID-19) mRNA BNT-162b2 vac 05/17/20 Given SARS-CoV-2 (COVID-19) mRNA BNT-162b2 vac 2 04/26/20 Given pneumococcal 13-valent vaccine 08/31/16 Given pneumococcal 23-valent vaccine 3 05/31/12 Given tetanus/diphtheria/pertussis, acel(Tdap) 4 05/31/12 Given 1Admin Note: VIS dated 09/13/11 2Result Comment: Administered by Dalia Olguin DIRECTOR OF COUNTERINTELLIGENCE 3Admin Note: VIS dated 12/17/08 4Admin Note: VIS dated 04/03/11 Medications Artificial Tears preserved solution 1 drops, Eyes, Both, 4 times a day, PRN Dry Eyes, # 10 mL, 11 Refills, Maintenance, 01/26/22 14:13:00 EST, Ophth Solution, [facility] #[id number], Partial fill upon patient request if the [...] tablet, 5 Refills, Maintenance, 08/26/22 16:55:00 EDT, [facility] #[id number], Please print in south african, 160, cm, 06/18/22 14:50:00 EDT, Height [...] Gm, 1 Refills, Maintenance, 06/18/2314:05:00 EDT, Cream, [facility] #[id number], Partial fill upon patient request if the prescription is for a schedule II opioid drug., 1 applicatio... Start Date: 06/18/22 Status: Ordered docusate sodium 100 mg oral capsule 100 mg, 1, capsule, By Mouth, 2 times a day, PRN, # 60 capsule, Refills 3, Tot. Refills 3, Maintenance, for constipation, 01/26/22 14:13:00 EST, Route to Pharmacy Electronically, [facility]#[id number], Partial fill upon patient request if the pr... Start Date: 01/26/22 Status: Ordered Eucerin Eczema Relief topical cream 1 application, Topically, 2 times a day, # 240 Gm, 5 Refills, Maintenance, 01/15/21 16:05:00 EDT, [facility] #[id number], Partial fill upon patient request if the prescription is for a schedule II opioid drug., 1 application Topically 2 times a d... Start Date: 01/15/21 Status: Ordered guaiFENesin 400 mg oral tablet 1 tablet = 400 mg, By Mouth, Every 4 hours, PRN as needed for congestion and cough, # 30 tablet, 1 Refills, Maintenance, 08/27/21 13:40:00 EDT, Tablet, [facility] #[id number], Partial fill upon patient request if the [...] 2 Refills, Maintenance, 08/17/21 13:14:00 EDT, Syrup, [facility] #[id number], 15 mL By Mouth Daily,PRN:as needed for [...] tablet, 5 Refills, Maintenance, 11/16/22 8:09:00 EDT, [facility] #[id number], Partial fill upon patient request if the prescription is for a schedule II opioid drug., 164, cm, 10/25/22 13:5... Start Date: 11/16/22 Stop Date: 05/15/23 Status: Ordered levothyroxine 75 mcg (0.075 mg) oral tablet 1 tablet = 75 mcg, By Mouth, Daily, TK 1 T PO D, # 90 tablet, 1 Refills, Maintenance, 03/23/23 8:46:00 EST, Tablet, [facility] #[id number], Partial fill upon patient request if the prescription is for a schedule II opioid drug., 164, cm, ... Start Date: 03/23/23 Status: Ordered lidocaine 4% mucous membrane solution 1 application, Topically, 2 times a day, PRN Pain , Mild, # 1 each, 0 Refills, Maintenance, 05/22/20 16:43:00 EST, [facility] #[id number], Partial fill upon patient request if the prescription is for a schedule II opioid drug., 1 application Topi... Start Date: 05/22/20 Status: Ordered midodrine 5 mg oral tablet 1, tablet, By Mouth, 3 times a day, # 90 tablet, Refills 3, Tot. Refills 3, Maintenance, 10/27/21 15:24:00 EDT, Route to Pharmacy Electronically, [facility] #[id number], 160, cm, 08/27/21 13:11:00 EDT, Height, 57.86, kg, 04/12/20 23:44:00 EST, . Start Date: 10/27/21 Status: Ordered Nutritional Supplements See Instructions, # 90 each, Refills 11, Tot. 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 mnyhgaruQ62.4, G31.83, 04/20/23 19:48:00 EST, Supply Start Date: 04/20/23 Status: Ordered omeprazole 40 mg oral enteric coated capsule 1 capsule, By Mouth, Daily, # 90 capsule, 1 Refills, Maintenance, 04/20/23 19:37:00 EST, [facility] #[id number], 164, cm, 12/27/22 17:03:00 EDT, Height Start [...] 03/23/23 8:47:00 EST, Route to Pharmacy Electronically, [facility] #[id number], 164, cm, 12/27/22 17:03:00 EDT, Height Start Date: 03/23/23 Status: Ordered Twin size hospital bed mattress Twin size [facility] bed mattress, See Instructions, # 1 [...] Supply Start Date: 05/22/20 Status: Ordered Washable Director Of Counterintelligence Bed Pads Washable Director Of Counterintelligence Bed Pads, See Instructions, # 4 each, [...] Pre-syncope Confirmed Active Orthostatic hypotension Confirmed Active *[id number] Water And Gas Helper Yi Campos Confirmed Active Pain of right sacroiliac joint Confirmed Active Seizures Confirmed Active Lewy body dementia Confirmed Active Tinea cruris Confirmed Active Unintentional weight loss Confirmed Active Urinary incontinence Confirmed Active Vitamin D deficiency Confirmed Active Social History Social History Type Response Smoking Status Former smoker entered on: 08/26/15 Sex Patient Care team information Care Team Personnel Name: Adela Vu RN Position: [facility] RN Member Role: Primary Care Nurse Name: Matilde Mahmood RN Position: [facility] RN Member Role: Primary Care Nurse Name: Roberta Felipe NP Position: [facility] PCO Associate Professional Member Role: PCP Address: Address: [address] [place] [address] Name: Maci Kruse RN Position: [facility] SN RN Member Role: Primary Care Nurse Name: Lidya Lyons RN Position: [facility] RN Member Role: Primary Care Nurse Name: Lyudmila Ortez RN Position: [facility] RN Member Role: Primary Care Nurse Name: Lilo Maldonado RN Position: [facility] RN Member Role: Primary Care Nurse Name: Anuj Murillo RN Position: [facility] RN Member Role: Primary Care Nurse Name: Jasmin Oliva Position: [facility] Outreach Member Role: Lifetime Consulting Physician Name: Suzanne Celeste RN Position: [facility] RN Member Role: Primary Care Nurse Name: Lily Solis RN Position: [facility] Onco RN Member Role: Primary Care Nurse Name: Nancy Morrow RN Position: [facility] RN Member Role: Primary Care Nurse Name: Etta Dewitt RN Position: [facility] RN Member Role: Primary Care Nurse Care Team Related Persons Name: JESSIKA HEARD Address: home [address] [place] [id number] Name: JESSICA JOSUE Address: [address] [place] [address] Name: CARLOS CEJA Address: home [address] [address]
--- OUTSIDE RECORDS SUMMARY | 2023-08-03 18:36 | XMS_ITS | Continuity of Care Document ---
Author Organization [facility] Address [address] [place] [address]- Care Team Providers Care School Occupational Therapist Name Role Phone Destinee JIMENEZ, Roberta Merida Primary Care Physician [facility]counter [facility] Date(s): 05/20/23 - 06/19/[address] [address]- Allergies, Adverse Reactions, Alerts Substance Reaction Severity Status penicillin rash Active Immunizations Given and Recorded Vaccine Date Status Refusal Reason [id number] 12y+ bivalent booster vax 03/05/22 Given influenza [...] inactivated 1 05/31/12 Gi davonte SARS-CoV-2 mRNA (cymsavr-cnod-qntsr) vax 06/19/21 Given SARS-CoV-2 (COVID-19) mRNA BNT-162b2 vac 05/17/20 Given SARS-CoV-2 (COVID-19) mRNA BNT-162b2 vac 2 04/26/20 Given pneumococcal 13-valent vaccine 08/31/16 Given pneumococcal 23-valent vaccine 3 05/31/12 Given tetanus/diphtheria/pertussis, acel(Tdap) 4 05/31/12 Given 1Admin Note: VIS dated 09/13/11 2Result Comment: Administered by Dalia Olguin LIVE OUT NANNY 3Admin Note: VIS dated 12/17/08 4Admin Note: VIS dated 04/03/11 Medications Artificial Tears preserved solution 1 drops, Eyes, Both, 4 times a day, PRN Dry Eyes, # 10 mL, 11 Refills, Maintenance, 01/26/22 14:13:00 EST, Ophth Solution, [facility] #[id number], Partial fill upon patient request if the [...] tablet, 5 Refills, Maintenance, 08/26/22 16:55:00 EDT, [facility] #[id number], Please print in turkish, 160, cm, 06/18/22 14:50:00 EDT, Height Start [...] Gm, 1 Refills, Maintenance, 06/18/2314:05:00 EDT, Cream, [facility] #[id number], Partial fill upon patient request if the prescription is for a schedule II opioid drug., 1 applicatio... Start Date: 06/18/22 Status: Ordered docusate sodium 100 mg oral capsule 100 mg, 1, capsule, By Mouth, 2 times a day, PRN, # 60 capsule, Refills 3, Tot. Refills 3, Maintenance, for constipation, 01/26/22 14:13:00 EST, Route to Pharmacy Electronically, [facility][id number], Partial fill upon patient request if the pr... Start Date: 01/26/22 Status: Ordered Eucerin Eczema Relief topical cream 1 application, Topically, 2 times a day, # 240 Gm, 5 Refills, Maintenance, 01/15/21 16:05:00 EDT, [facility] #[id number], Partial fill upon patient request if the prescription is for a schedule II opioid drug., 1 application Topically 2 times a d... Start Date: 01/15/21 Status: Ordered gabapentin 100 mg oral capsule 100 mg, 1, capsule, By Mouth, 2 times a day, # 60 capsule, Refills 2, Tot. Refills 2, Maintenance, 05/11/23 14:31:00 EST, Route to Pharmacy Electronically, [facility] #[id number], Partial fill upon patient request if the prescription is for a genna... Start Date: 05/11/23 Status: Ordered guaiFENesin 400 mg oral tablet 1 tablet = 400 mg, By Mouth, Every 4 hours, PRN as needed for congestion and cough, # 30 tablet, 1 Refills, Maintenance, 08/27/21 13:40:00 EDT, Tablet, [facility] #[id number], Partial fill upon patient request if the [...] 2 Refills, Maintenance, 08/17/21 13:14:00 EDT, Syrup, [facility] #[id number], 15 mL By Mouth Daily,PRN:as needed for [...] tablet, 5 Refills, Maintenance, 11/16/22 8:09:00 EDT, [facility] #[id number], Partial fill upon patient request if the prescription is for a schedule II opioid drug., 164, cm, 10/25/22 13:5... Start Date: 11/16/22 Stop Date: 05/15/23 Status: Ordered levothyroxine 75 mcg (0.075 mg) oral tablet 1 tablet = 75 mcg, By Mouth, Daily, TK 1 T PO D, # 90 tablet, 1 Refills, Maintenance, 03/23/23 8:46:00 EST, Tablet, [facility] #[id number], Partial fill upon patient request if the prescription is for a schedule II opioid drug., 164, cm, ... Start Date: 03/23/23 Status: Ordered lidocaine 4% mucous membrane solution 1 application, Topically, 2 times a day, PRN Pain , Mild, # 1 each, 0 Refills, Maintenance, 05/22/20 16:43:00 EST, [facility] #[id number], Partial fill upon patient request if the prescription is for a schedule II opioid drug., 1 application Topi... Start Date: 05/22/20 Status: Ordered midodrine 5 mg oral tablet 1, tablet, By Mouth, 3 times a day, # 90 tablet, Refills 3, Tot. Refills 3, Maintenance, 10/27/21 15:24:00 EDT, Route to Pharmacy Electronically, [facility] #[id number], 160, cm, 08/27/21 13:11:00 EDT, Height, 57.86, kg, 04/12/20 23:44:00 ESTDr... Start Date: 10/27/21 Status: Ordered Nutritional Supplements See Instructions, # 90 each, Refills 11, Tot. Refills 11, Maintenance, 350 kcal, 8oz, q 8 hrs by mouth Ensure Plus Vanilla and strawberry, 1 can TID by mouth, for unintended weight loss related to advanced dementia R63.4, G31.83, 05/24/23 13:42:00 ED... Start Date: 05/24/23 Status: Ordered omeprazole 40 mg oral enteric coated capsule 1 capsule, By Mouth, Daily, # 90 capsule, 1 Refills, Maintenance, 04/20/23 19:37:00 EST, [facility] #[id number], 164, cm, 12/27/22 17:03:00 EDT, Height Start [...] 03/23/23 8:47:00 EST, Route to Pharmacy Electronically, [facility] #[id number], 164, cm, 12/27/22 17:03:00 EDT, Height Start Date: 03/23/23 Status: Ordered [facility] bed mattress [facility] bed mattress, See Instructions, # [...] Supply Start Date: 05/22/20 Status: Ordered Washable Operating Room Technologist Bed Pads Washable Operating Room Technologist Bed Pads, See Instructions, # 4 each, [...] Pre-syncope Confirmed Active Orthostatic hypotension Confirmed Active *[id number] Financial Reporting Analyst Yi Campos Confirmed Active Pain of right sacroiliac joint Confirmed Active Seizures Confirmed Active Lewy body dementia Confirmed Active Tinea cruris Confirmed Active Unintentional weight loss Confirmed Active Urinary incontinence Confirmed Active Vitamin D deficiency Confirmed Active Social History Social History Type Response Smoking Status Former smoker entered on: 08/26/15 Sex Patient Care team information Care Team Personnel Name: Adela Vu RN Position: [facility] RN Member Role: Primary Care Nurse Name: Matilde Mahmood RN Position: [facility] RN Member Role: Primary Care Nurse Name: Roberta Felipe NP Position: [facility] PCO Associate Professional Member Role: PCP Address: Address: [address] [place] [address] Name: Maci Kruse RN Position: [facility] SN RN Member Role: Primary Care Nurse Name: Lidya Lyons RN Position: [facility] RN Member Role: Primary Care Nurse Name: Lyudmila Ortez RN Position: [facility] RN Member Role: Primary Care Nurse Name: Lilo Maldonado RN Position: [facility] RN Member Role: Primary Care Nurse Name: Anuj Murillo RN Position: [facility] RN Member Role: Primary Care Nurse Name: Jasmin Oliva Position: [facility] Outreach Member Role: Lifetime Consulting Physician Name: Suzanne Celeste RN Position: [facility] RN Member Role: Primary Care Nurse Name: Lily Solis RN Position: [facility] Onco RN Member Role: Primary Care Nurse Name: Nancy Morrow RN Position: [facility] RN Member Role: Primary Care Nurse Name: Etta Dewitt RN Position: [facility] RN Member Role: Primary Care Nurse Care Team Related Persons Name: JESSIKA HEARD Address: home [address] [place] [id number] Name: JESSICA JOSUE Address: [address] [place] [address] Name: CARLOS CEJA Address: home [address] [place] [address]
--- OUTSIDE RECORDS SUMMARY | 2023-08-03 18:36 | XMS_ITS | Continuity of Care Document ---
Author Organization [facility] Address [address] [place] [id number]- Care Team Providers Care Sider Mechanic Name Role Phone Destinee JIMENEZ, Roberta Merida Primary Care Physician [facility] Date[facility]s): 04[facility]14[facility]23 - 06/10/[address] [id number] Attending Physician: Not on Staff, Attending MD Allergies, Adverse Reactions, Alerts Substance Reaction Severity Status penicillin rash Active Immunizations Given and Recorded Vaccine Date Status Refusal Reason [id number] 12y+ bivalent booster vax 03/05/22 Given influenza [...] inactivated 1 05/31/12 Gi davonte SARS-CoV-2 mRNA ([id number]-[id number]-qdmef) vax 06/19/21 Given SARS-CoV-2 (COVID-19) mRNA BNT-162b2 vac 05/17/20 Given SARS-CoV-2 (COVID-19) mRNA BNT-162b2 vac 2 04/26/20 Given pneumococcal 13-valent vaccine 08/31/16 Given pneumococcal 23-valent vaccine 3 05/31/12 Given tetanus/diphtheria/pertussis, acel(Tdap) 4 05/31/12 Given 1Admin Note: VIS dated 09/13/11 2Result Comment: Administered by Dalia Olguin PLASTIC DIE MAKER APPRENTICE 3Admin Note: VIS dated 12/17/08 4Admin Note: VIS dated 04/03/11 Medications Artificial Tears preserved solution 1 drops, Eyes, Both, 4 times a day, PRN Dry Eyes, # 10 mL, 11 Refills, Maintenance, 01/26/22 14:13:00 EST, Ophth Solution, [facility] #[id number], Partial fill upon patient request if the [...] tablet, 5 Refills, Maintenance, 08/26/22 16:55:00 EDT, [facility] #[id number], Please print in lebanese, 160, cm, 06/18/22 14:50:00 EDT, Height Start [...] Gm, 1 Refills, Maintenance, 06/18/2314:05:00 EDT, Cream, [facility] #[id number], Partial fill upon patient request if the prescription is for a schedule II opioid drug., 1 applicatio... Start Date: 06/18/22 Status: Ordered docusate sodium 100 mg oral capsule 100 mg, 1, capsule, By Mouth, 2 times a day, PRN, # 60 capsule, Refills 3, Tot. Refills 3, Maintenance, for constipation, 01/26/22 14:13:00 EST, Route to Pharmacy Electronically, [facility]#[id number], Partial fill upon patient request if the pr... Start Date: 01/26/22 Status: Ordered Eucerin Eczema Relief topical cream 1 application, Topically, 2 times a day, # 240 Gm, 5 Refills, Maintenance, 01/15/21 16:05:00 EDT, [facility] #[id number], Partial fill upon patient request if the prescription is for a schedule II opioid drug., 1 application Topically 2 times a d... Start Date: 01/15/21 Status: Ordered gabapentin 100 mg oral capsule 100 mg, 1, capsule, By Mouth, 2 times a day, # 60 capsule, Refills 2, Tot. Refills 2, Maintenance, 05/11/23 14:31:00 EST, Route to Pharmacy Electronically, [facility] #[id number], Partial fill upon patient request if the prescription is for a genna... Start Date: 05/11/23 Status: Ordered guaiFENesin 400 mg oral tablet 1 tablet = 400 mg, By Mouth, Every 4 hours, PRN as needed for congestion and cough, # 30 tablet, 1 Refills, Maintenance, 08/27/21 13:40:00 EDT, Tablet, [facility] #[id number], Partial fill upon patient request if the [...] 2 Refills, Maintenance, 08/17/21 13:14:00 EDT, Syrup, [facility] #[id number], 15 mL By Mouth Daily,PRN:as needed for [...] tablet, 5 Refills, Maintenance, 11/16/22 8:09:00 EDT, [facility] #[id number], Partial fill upon patient request if the prescription is for a schedule II opioid drug., 164, cm, 10/25/22 13:5... Start Date: 11/16/22 Stop Date: 05/15/23 Status: Ordered levothyroxine 75 mcg (0.075 mg) oral tablet 1 tablet = 75 mcg, By Mouth, Daily, TK 1 T PO D, # 90 tablet, 1 Refills, Maintenance, 03/23/23 8:46:00 EST, Tablet, [facility] #[id number], Partial fill upon patient request if the prescription is for a schedule II opioid drug., 164, cm, ... Start Date: 03/23/23 Status: Ordered lidocaine 4% mucous membrane solution 1 application, Topically, 2 times a day, PRN Pain , Mild, # 1 each, 0 Refills, Maintenance, 05/22/20 16:43:00 EST, [facility] #[id number], Partial fill upon patient request if the prescription is for a schedule II opioid drug., 1 application Topi... Start Date: 05/22/20 Status: Ordered midodrine 5 mg oral tablet 1, tablet, By Mouth, 3 times a day, # 90 tablet, Refills 3, Tot. Refills 3, Maintenance, 10/27/21 15:24:00 EDT, Route to Pharmacy Electronically, [facility] #[id number], 160, cm, 08/27/21 13:11:00 EDT, Height, 57.86, [...] capsule, 1 Refills, Maintenance, 04/20/23 19:37:00 EST, [facility] #[id number], 164, cm, 12/27/22 17:03:00 EDT, Height Start [...] 03/23/23 8:47:00 EST, Route to Pharmacy Electronically, [facility] #[id number], 164, cm, 12/27/22 17:03:00 EDT, Height Start Date: 03/23/23 Status: Ordered [facility] bed mattress [facility] bed mattress, See Instructions, # 1 each, [...] Supply Start Date: 05/22/20 Status: Ordered [employer] Systems Engineer Bed Pads [employer] Systems Engineer Bed Pads, See Instructions, # 4 each, [...] Pre-syncope Confirmed Active Orthostatic hypotension Confirmed Active *[id number] Attending Pathologist Yi Campos Confirmed Active Pain of right sacroiliac joint Confirmed Active Seizures Confirmed Active Lewy body dementia Confirmed Active Tinea cruris Confirmed Active Unintentional weight loss Confirmed Active Urinary incontinence Confirmed Active Vitamin D deficiency Confirmed Active Social History Social History Type Response Smoking Status Former smoker entered on: 08/26/15 Sex Patient Care team information Care Team Personnel Name: Adela Vu RN Position: [facility] RN Member Role: Primary Care Nurse Name: Matilde Mahmood RN Position: [facility] RN Member Role: Primary Care Nurse Name: Roberta Felipe NP Position: [facility] PCO Associate Professional Member Role: PCP Address: Address: [address] [place] [address] Name: Maci Kruse RN Position: [facility] SN RN Member Role: Primary Care Nurse Name: Lidya yLons RN Position: [facility] RN Member Role: Primary Care Nurse Name: Lyudmila Ortez RN Position: [facility] RN Member Role: Primary Care Nurse Name: Lilo Maldonado RN Position: [facility] RN Member Role: Primary Care Nurse Name: Anuj Murillo RN Position: [facility] RN Member Role: Primary Care Nurse Name: Jasmin Oliva Position: [facility] Outreach Member Role: Lifetime Consulting Physician Name: Suzanne Celeste RN Position: [facility] RN Member Role: Primary Care Nurse Name: Lily Solis RN Position: [facility] Onco RN Member Role: Primary Care Nurse Name: Nancy Morrow RN Position: [facility] RN Member Role: Primary Care Nurse Name: Etta Dewitt RN Position: [facility] RN Member Role: Primary Care Nurse Care Team Related Persons Name: JESSIKA HEARD Address: home [address] Name: JESSICA JOSUE Address: home [address] [place] [address] Name: CARLOS CEJA Address: home [address]
--- NOTE | 2023-08-03 18:37 | ED_ITS ---
HPI - Altered Mental Status General Chief Complaint: Altered Mental Status Stated Complaint: CP DEMENTIA Time Seen by Provider: 08/03/23 16:44 Source: EMS Mode of arrival: EMS Limitations: altered mental status History of Present Illness ED Provider: Dr. Melissa Brown HPI narrative: Patient comes to the emergency room via EMS from home. According to EMS, the patient's family stated the patient was complaining of right chest pain since last night. Here in the emergency room, patient is nonverbal. Per EMS, the patient family that there is a MOLST form, patient is DNR DNI Patient's son is at bedside. States that patient has been having some right- sided chest pain sometimes left-sided chest pain, they gave him Tylenol and seems that the patient feels comfortable. They is wanted to make sure that he has not having any acute pulmonary or heart conditions. Related Data Home Medications ?Medication ?Instructions ?Recorded ?Confirmed levothyroxine 75 mcg tablet 1 tab PO DAILY 09/21/20 10/14/20 midodrine 5 mg tablet 1 tab PO TID 09/21/20 10/14/20 omeprazole 40 mg capsule,delayed 1 cap PO DAILY 09/21/20 10/14/20 release trazodone 50 mg tablet 2 tab PO BEDTIME 09/21/20 10/14/20 apixaban 2.5 mg tablet (Eliquis) 1 tab PO BID 10/14/20 10/14/20 levetiracetam 750 mg tablet 1 tab PO BID 10/14/20 10/14/20 Allergies Allergy/AdvReac Type Severity Reaction Status Date / Time Penicillins [PENICILLINS] Allergy Unknown UNKNOWN Verified 08/03/23 17:11 Review of Systems 2 Review of Systems: Yes Unobtainable due to mental condition [facility] Past Medical History Medical History Microscopic hematuria Acute blood loss anemia Orthostatic hypotension Dementia Kidney disease Hypothyroid Chronic GERD Afib Anemia Acute GI bleeding Social History Social History Household Members: Family and Children Housing: House Unable to assess alcohol history related to: Unable to respond Alcohol intake: never Patient Tobacco Use Status: Tobacco use Unknown Smoked in Last 30 Days: No Advance Directives: Yes Advance Directives on File: Yes Advance Directives Date on File: 09/22/20 Do you have a plan to hurt others: No Plan service: No Physical Exam ED Vital Signs: Vital Signs - 24 hr 08/03/23 17:08 08/03/23 19:08 Temperature 97.9 F 97.8 F Pulse Rate 77 66 Respiratory Rate 20 18 Blood Pressure 181/95 H 169/99 H Pulse Oximetry 98 99 Oxygen Delivery Method Room Air Room Air BMI result Body Mass Index 19.1 Const Other: Appearance: Alert. No acute distress Eyes: Pupils equal, round and reactive to light. ENT: Pharynx normal. Neck: Normal inspection. Neck supple. No lymph nodes noted. No crepitus CVS: Normal heart rate and rhythm. Pulses normal. Normal S1 and S2 Respiratory: No respiratory distress. Breath sounds normal. No Wheezing. No rales Abdomen: Soft and nontender. No rigidity. No distention. Skin: Skin warm and dry. Normal skin color. Normal skin turgor. Extremities: Curled up in position secondary to lower extremity chronic contractions Neuro: Oriented X 3. No motor deficit. No sensory deficit. Moving all extremities. No slurred speech. CN 2 through 12 grossly intact Psych: calm, cooperative, normal affect Medical Decision Making Medical Decision Making [facility] Narrative: -my interpretation of x-ray: No infiltrates -my interpretation of labs: Patient is anemic at baseline, chemistry shows a creatinine of 1.5 few which is patient's baseline as well. -patient has been on the monitor both cardiac and O2, no acute changes. Patient otherwise doing well. -patient's son states that they have Tylenol and Motrin at home and feel comfortable taking the patient home. Services were offered but declined by the family. Differential Diagnosis Differential Diagnoses: The differential diagnosis associated with the presentation includes (UTI, pneumonia, fracture ribs, ACS, musculoskeletal pain) Admission/Observation Consideration of admission/observation: Escalation of care including admission/observation considered (Given patient's past medical history and presentation, observation/admission considered) Lab Data [facility] Lab Attestation statement: I reviewed the patient's lab results. 08/03/23 17:32 08/03/23 17:32 Labs: Lab Results 08/03/23 08/03/23 Range/Units 17:12 17:32 WBC 6.7 (4.8-10.8) X10*3/uL RBC 3.04 L (4.60-5.80) X10*6/uL Hgb 8.3 L (14.0-18.0) g/dl Hct 27.1 L (42.0-52.0) % MCV 89.1 (80.0-98.0) fL MCH 27.3 (27.0-33.0) pg MCHC 30.6 L (31.0-36.0) g/dl RDW 17.7 H (11.0-16.0) % Plt Count 190 (160-400) X10*3/uL MPV 11.9 (9.4-12.4) fL Immature Gran % (Auto) 0.3 (0.0-0.4) % Neut % (Auto) 63.1 (45-73) % Lymph % (Auto) 25.5 (20-40) % [place] % (Auto) 8.6 (2-11) % Eos % (Auto) 1.9 (0-4) % Baso % (Auto) 0.6 (0-2) % Lymph # (Auto) 1.7 (1.2-4.9) X10*3/uL [place] # (Auto) 0.6 (0.1-1.2) X10*3/uL Eos # (Auto) 0.1 (0.0-0.4) X10*3/uL Baso # (Auto) 0.0 (0.0-0.2) X10*3/uL Abs Immat Gran (auto) 0.02 (0.00-0.03) X10*3/uL Absolute Neuts (auto) 4.3 (2.0-8.3) x10*3/uL Absolute Nucleated RBC 0.000 (0.0-0.012) X10*3/uL Nucleated RBC % (auto) 0.0 (0.0-0.2) /100WBC PT 11.8 (11.1-13.3) SEC INR 1.0 (0.9-1.1) Sodium 141 (135-145) mmol/L Potassium 5.1 (3.3-5.1) mmol/L Chloride 109 H (96-108) mmol/L Carbon Dioxide 24 (22-29) mmol/L Anion Gap 13 (12-20) BUN 32 H (9-16) mg/dL Creatinine 1.53 H (0.5-1.4) mg/dL Estim Creat Clear Calc 24.9 Estimated GFR 44 Random Glucose 96 (60-115) mg/dL Lactic Acid 1.8 (0.5-2.0) mmol/L Calcium 8.6 (8.4-10.2) mg/dL Magnesium 2.2 (1.6-2.6) mg/dL Total Bilirubin 0.1 (0.0-1.0) mg/dL Direct Bilirubin < 0.2 (0.0-0.5) mg/dL AST 17 (5-37) U/L ALT 7 (0-40) U/L Alkaline Phosphatase 95 (39-117) U/L Troponin I High Sens 12.5 (<3.5-35.0) ng/L Total Protein 6.4 L (6.5-8.0) g/dL Albumin 3.0 L (3.5-5.0) g/dL Urine Color Yellow Urine Appearance Clear Urine pH 6.5 (5.0-9.0) Ur Specific [place] 1.025 (1.005-1.025) Urine Protein Trace (Neg-Trace) mg/dL Urine Glucose (UA) Negative (Negative) mg/dL Urine Ketones Trace (Negative) mg/dL Urine Blood Moderate (2+) H (Negative) Urine Nitrite Negative (Negative) Ur Leukocyte Esterase Negative (Negative) Urine RBC >20 H (0-2) /HPF Urine WBC 6-10 H (0-5) /HPF Ur Squamous Epith Cells 0-2 (0-2) /HPF Urine Bacteria None Seen (None Seen) Hyaline Casts 0-2 (0-2) /LPF COVID-19 (ROSA) Negative (Negative) COVID-19 Clin Com See Note Influenza Type A (JEFFREY) Negative (Negative) Influenza Type B (JEFFREY) Negative (Negative) Influenza A & B Note See Note Independent Interpretation I performed an independent interpretation of an: Plain X-Ray Radiology Impression Discussion of test interpretation with radiology: I have reviewed the radiologist's reading. Radiologist Impression: FINDINGS: No significant abnormality is noted involving the heart, lungs, mediastinum, bony thorax or soft tissues. XR/XR chest 1V IMPRESSION: Unremarkable examination. Critical Care Time Critical Care Time Critical Care Time: Yes Total Critical Care Time: 45 Attestation: I have personally provided critical care time. Time includes review of lab data, radiology results, discussion with consultants, and monitoring for potential decompensation. Intervention performed as documented. Discharge Plan Discharge Clinical Impression: Musculoskeletal pain Patient Disposition: Home, Self-Care Instructions: Musculoskeletal Pain (ED) Additional Instructions: Please follow-up with your primary care physician tomorrow. If you have any worsening or new symptoms, please return to the emergency room or call 911 Prescriptions: No Action trazodone 50 mg tablet 2 tab PO BEDTIME midodrine 5 mg tablet 1 tab PO TID omeprazole 40 mg capsule,delayed release(DR/EC) 1 cap PO DAILY levothyroxine 75 mcg tablet 1 tab PO DAILY levetiracetam 750 mg tablet 1 tab PO BID Eliquis 2.5 mg tablet 1 tab PO BID Print Language: Belarusian
--- NOTE | 2023-08-03 18:44 | PC.NURSE ---
Patient continues rest quietly on the stretcher, very contracted, family concerned regarding patient's hypertension, family reassured.
[2023-08-03 19:08] VITALS: BP 169/99; PULSE 66; RESP 18; TEMP 36.6; O2SAT 99
--- NOTE | 2023-08-03 19:09 | MHC.EDTECH ---
Patient bed pad changed and repositioned
[2023-08-03 22:58] VITALS: BP 150/68; PULSE 59; RESP 14; TEMP 36.7; O2SAT 96
[2023-08-03 23:02] VITALS: BP 150/68; PULSE 59; RESP 14; TEMP 36.7; O2SAT 96
== END 2023-08-03 23:03 | disposition home or self-care (01) ==
PROVIDERS: Emergency Provider Emergency Medicine; PCP Nurse Practitioner Family
DX: M79.18 Myalgia, other site (principal); R07.9 Chest pain, unspecified; I48.91 Unspecified atrial fibrillation; E03.9 Hypothyroidism, unspecified
CPT/HCPCS: 51701; 71045; 80048; 80076; 81001; 83605; 83735; 84484; 85025; 85610; 87040; 87086; 87502; 87635; 93005; 99283; 99285

== ENCOUNTER → 2023-08-03 16:51 | Outpatient (BNV) | payer MEDICARE, SELFPAY | PROVIDERS: Emergency Provider Emergency Medicine; PCP Nurse Practitioner Family; Visit Provider Internal Medicine Cardiovascular Disease | DX: R07.9 Chest pain, unspecified (principal) | CPT/HCPCS: 93010 ==

== ENCOUNTER 2023-11-25 17:45 | Inpatient (IN) | payer OTHER, SELFPAY ==
--- NOTE | ~2023-11-25 | US_ITS ---
EXAMINATION: US TRIPLEX LOWER EXTREMITY, BILATERAL CLINICAL INFORMATION: Increased swelling bilaterally COMPARISON: 09/22/2020 TECHNIQUE: Color-flow triplex imaging with spectral analysis and compression Doppler were performed on the bilateral lower extremities. FINDINGS: Per technologist report, performance of the exam was significantly limited due to patient positioning and immobility. In this setting, within the right lower extremity the distal femoral vein, popliteal vein, peroneal vein, and posterior tibial vein appear patent with internal flow demonstrated. Within the left lower extremity the posterior tibial vein appears patent. The remainder of the deep veins bilaterally were not accessible sonographically. US/US venous duplex LE BI IMPRESSION: Significantly limited exam as described above. No evidence of deep vein thrombosis within the imaged bilateral lower extremities, though several veins are not able to be adequately evaluated especially in the left lower extremity. Electronically signed by: Chester Rodriguez MD 11/26/2023 12:34 AM EDT
[2023-11-25 17:57] VITALS: BP 112/63; BP 130/66; PULSE 100; PULSE 98; RESP 18; O2SAT 95; O2SAT 99; BMI 16.4
[2023-11-25 18:04] LABS: Glucose, Whole Blood 121 mg/dL (60-115)
--- NOTE | 2023-11-25 18:22 | PC.NURSE ---
3 open wounds: large areaon right bony prominence, left upper buttocks. smallest on right hip. are are full thickness and have eschgar. pink dressings applied.
[2023-11-25 18:24] VITALS: TEMP 36.6
--- NOTE | 2023-11-25 18:24 | PC.NURSE ---
positioned with mult pillows. awaits provider
--- OUTSIDE RECORDS SUMMARY | 2023-11-25 18:41 | XMS_ITS | Continuity of Care Document ---
Author Organization [facility] Address [address] [place] [id number]- Care Team Providers Care Bankruptcy Processor Name Role Phone Destinee JIMENEZ, Roberta Merida Primary Care Physician [facility]): [facility]23 - 09/08/[address] [address] Allergies, Adverse Reactions, Alerts Substance Reaction Severity Status penicillin rash Active Immunizations Given and Recorded Vaccine Date Status Refusal Reason [id number] 12y+ bivalent booster vax 03/05/22 Given influenza [...] inactivated 1 05/31/12 Gi davonte SARS-CoV-2 mRNA ([id number]-hsfa-mjiyo) vax 06/19/21 Given SARS-CoV-2 (COVID-19) mRNA BNT-162b2 vac 05/17/20 Given SARS-CoV-2 (COVID-19) mRNA BNT-162b2 vac 2 04/26/20 Given pneumococcal 13-valent vaccine 08/31/16 Given pneumococcal 23-valent vaccine 3 05/31/12 Given tetanus/diphtheria/pertussis, acel(Tdap) 4 05/31/12 Given 1Admin Note: VIS dated 09/13/11 2Result Comment: Administered by Dalia Olguin DIVERSIFIED CROPS SUPERVISOR 3Admin Note: VIS dated 12/17/08 4Admin Note: VIS dated 04/03/11 Medications Artificial Tears preserved solution 1 drops, Eyes, Both, 4 times a day, PRN Dry Eyes, # 10 mL, 11 Refills, Maintenance, 01/26/22 14:13:00 EST, Ophth Solution, [facility] #[id number], Partial fill upon patient request if the [...] tablet, 5 Refills, Maintenance, 08/26/22 16:55:00 EDT, [facility] #[id number], Please print in uzbek, 160, cm, 06/18/22 14:50:00 EDT, Height Start [...] Gm, 1 Refills, Maintenance, 06/18/2314:05:00 EDT, Cream, [facility] #[id number], Partial fill upon patient request if the prescription is for a schedule II opioid drug., 1 applicatio... Start Date: 06/18/22 Status: Ordered docusate sodium 100 mg oral capsule 100 mg, 1, capsule, By Mouth, 2 times a day, PRN, # 60 capsule, Refills 3, Tot. Refills 3, Maintenance, for constipation, 01/26/22 14:13:00 EST, Route to Pharmacy Electronically, [facility]#[id number], Partial fill upon patient request if the pr... Start Date: 01/26/22 Status: Ordered Eucerin Eczema Relief topical cream 1 application, Topically, 2 times a day, # 240 Gm, 5 Refills, Maintenance, 01/15/21 16:05:00 EDT, [facility] #[id number], Partial fill upon patient request if the prescription is for a schedule II opioid drug., 1 application Topically 2 times a d... Start Date: 01/15/21 Status: Ordered gabapentin 100 mg oral capsule 100 mg, 1, capsule, By Mouth, 2 times a day, # 60 capsule, Refills 2, Tot. Refills 2, Maintenance, 05/11/23 14:31:00 EST, Route to Pharmacy Electronically, [facility] #[id number], Partial fill upon patient request if the prescription is for a genna... Start Date: 05/11/23 Status: Ordered guaiFENesin 400 mg oral tablet 1 tablet = 400 mg, By Mouth, Every 4 hours, PRN as needed for congestion and cough, # 30 tablet, 1 Refills, Maintenance, 08/27/21 13:40:00 EDT, Tablet, [facility] #[id number], Partial fill upon patient request if the [...] EDT, Supply Start Date: 01/15/21 Status: Ordered Hospital bed repairs Hospital bed repairs, See Instructions, # 1 each, Refills 3, Tot. Refills 3, Maintenance, Please repair or replace hospital bed. Stuck in sitting position. Pt bed bound with advanced lewy body dementia G31.83, Z74.01, 08/22/23 16:43:00 EDT, Supply Start Date: 08/22/23 Status: Ordered hydrocolloid dressing hydrocolloid dressing, See [...] 2 Refills, Maintenance, 08/17/21 13:14:00 EDT, Syrup, [facility] #[id number], 15 mL By Mouth Daily,PRN:as needed for [...] tablet, 5 Refills, Maintenance, 11/16/22 8:09:00 EDT, Tablet, [facility] #[id number], Partial fill upon patient request if the prescription is for a schedule II opioid drug., 164, cm, 10/25/22 13:5... Start Date: 11/16/22 Stop Date: 05/15/23 Status: Ordered levothyroxine 75 mcg (0.075 mg) oral tablet 1 tablet = 75 mcg, By Mouth, Daily, TK 1 T PO D, # 90 tablet, 1 Refills, Maintenance, 03/23/23 8:46:00 EST, Tablet, [facility] #[id number], Partial fill upon patient request if the prescription is for a schedule II opioid drug., 164, cm, ... Start Date: 03/23/23 Status: Ordered lidocaine 4% mucous membrane solution 1 application, Topically, 2 times a day, PRN Pain , Mild, # 1 each, 0 Refills, Maintenance, 05/22/20 16:43:00 EST, [facility] #[id number], Partial fill upon patient request if the prescription is for a schedule II opioid drug., 1 application Topi... Start Date: 05/22/20 Status: Ordered midodrine 5 mg oral tablet 1, tablet, By Mouth, 3 times a day, # 90 tablet, Refills 3, Tot. Refills 3, Maintenance, 10/27/21 15:24:00 EDT, Route to Pharmacy Electronically, [facility] #[id number], 160, cm, 08/27/21 13:11:00 EDT, Height, 57.86, kg, 04/12/20 23:44:00 ESTDr... Start Date: 10/27/21 Status: Ordered Nutritional Supplements See Instructions, # 90 each, Refills 11, Tot. Refills 11, Maintenance, 360 kcal, 8oz, q 8 hrs by mouth Boost Plus Vanilla and strawberry, 1 can TID by mouth, for unintended weight loss related to advanced dementia R63.4, G31.83, 08/11/23 12:46:00 EDT... Start Date: 08/11/23 Status: Ordered omeprazole 40 mg oral enteric coated capsule 1 capsule, By Mouth, Daily, # 90 capsule, 1 Refills, Maintenance, 04/20/23 19:37:00 EST, [facility] #[id number], 164, cm, 12/27/22 17:03:00 EDT, Height Start [...] 03/23/23 8:47:00 EST, Route to Pharmacy Electronically, [facility] #[id number], 164, cm, 12/27/22 17:03:00 EDT, Height Start Date: 03/23/23 Status: Ordered [facility] bed mattress [facility] bed mattress, See Instructions, # 1 each, Refills 0, Tot. Refills 0, Maintenance, Use daily, FANNIE 99 Bedbound: Z74.01 Lewy Body Dementia: G31.83, 08/22/23 16:43:00 EDT, Supply Start Date: 08/22/23 Status: Ordered Urinal See Instructions, # 3 each, Refills 0, Tot. Refills 0, Maintenance, Use as needed for urinating. 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 Z74.01, G31.83, 05/22/20 17:15:00 EST, Supply Start Date: 05/22/20 Status: Ordered Washable Bed Pads Washable Bed Pads, See Instructions, # 3 each, Refills 3, Tot. Refills 3, Maintenance, Use as needed for total incontinence, bedbound N39.498, Z74.01 3 per 3 months, 08/15/23 16:05:00 EDT, Supply Start Date: 08/15/23 Status: Ordered wipes wipes, See Instructions, # 5 pack/packet, Refills 11, Tot. Refills 11, Maintenance, Use to clean patient for urinary and stool incontinence R15.9, R32, 08/09/23 15:47:00 EDT, Supply Start Date: 08/09/23 Status: Ordered Problem List Condition Confirmation Course [...] Pre-syncope Confirmed Active Orthostatic hypotension Confirmed Active *[id number] [facility] Therapist Yi Campos Confirmed Active Pain of right sacroiliac joint Confirmed Active Seizures Confirmed Active Lewy body dementia Confirmed Active Tinea cruris Confirmed Active Unintentional weight loss Confirmed Active Urinary incontinence Confirmed Active Vitamin D deficiency Confirmed Active Social History Social History Type Response Smoking Status Former smoker entered on: 08/26/15 Sex Patient Care team information Care Team Personnel Name: Adela Vu RN Position: [facility] RN Member Role: Primary Care Nurse Name: Matilde Mahmood RN Position: [facility] RN Member Role: Primary Care Nurse Name: Roberta Felipe NP Position: [facility] PCO Associate Professional Member Role: PCP Address: Address: [address] [place] [address] Name: Maci Kruse RN Position: [facility] SN RN Member Role: Primary Care Nurse Name: Lidya Lyons RN Position: [facility] RN Member Role: Primary Care Nurse Name: Lyudmila Ortez RN Position: [facility] RN [...] Team Related Persons Name: JESSIKA HEARD Address: [address] [address] Name: JESSICA JOSUE Address: home [address] [place] [id number] Name: CARLOS CEJA Address: home [address] [place] [id number]
--- OUTSIDE RECORDS SUMMARY | 2023-11-25 18:41 | XMS_ITS | Continuity of Care Document ---
Author Organization [facility] Address [address] [place] [id number]- Care Team Providers Care Printed Circuit Photographer Name Role Phone Destinee JIMENEZ, Roberta Merida Primary Care Physician [facility] Date[facility]): 08/[facility]/23 - 09/21/[address] [id number] Allergies, Adverse Reactions, Alerts Substance Reaction Severity Status penicillin rash Active Immunizations Given and Recorded Vaccine Date Status Refusal Reason [id number] 12y+ bivalent booster vax 03/05/22 Given influenza [...] inactivated 1 05/31/12 Gi davonte SARS-CoV-2 mRNA ([id number]) vax 06/19/21 Given SARS-CoV-2 (COVID-19) mRNA BNT-162b2 vac 05/17/20 Given SARS-CoV-2 (COVID-19) mRNA BNT-162b2 vac 2 04/26/20 Given pneumococcal 13-valent vaccine 08/31/16 Given pneumococcal 23-valent vaccine 3 05/31/12 Given tetanus/diphtheria/pertussis, acel(Tdap) 4 05/31/12 Given 1Admin Note: VIS dated 09/13/11 2Result Comment: Administered by Dalia Olguin NP 3Admin Note: VIS dated 12/17/08 4Admin Note: VIS dated 04/03/11 Medications Artificial Tears preserved solution 1 drops, Eyes, Both, 4 times a day, PRN Dry Eyes, # 10 mL, 11 Refills, Maintenance, 01/26/22 14:13:00 EST, Ophth Solution, [facility] #[id number], Partial fill upon patient request if the [...] tablet, 5 Refills, Maintenance, 08/26/22 16:55:00 EDT, [facility] #[id number], Please print in english, 160, cm, 06/18/22 14:50:00 EDT, Height Start [...] Gm, 1 Refills, Maintenance, 06/18/2314:05:00 EDT, Cream, [facility] #[id number], Partial fill upon patient request if the prescription is for a schedule II opioid drug., 1 applicatio... Start Date: 06/18/22 Status: Ordered docusate sodium 100 mg oral capsule 100 mg, 1, capsule, By Mouth, 2 times a day, PRN, # 60 capsule, Refills 3, Tot. Refills 3, Maintenance, for constipation, 01/26/22 14:13:00 EST, Route to Pharmacy Electronically, [facility]#[id number], Partial fill upon patient request if the pr... Start Date: 01/26/22 Status: Ordered Eucerin Eczema Relief topical cream 1 application, Topically, 2 times a day, # 240 Gm, 5 Refills, Maintenance, 01/15/21 16:05:00 EDT, [facility] #[id number], Partial fill upon patient request if the prescription is for a schedule II opioid drug., 1 application Topically 2 times a d... Start Date: 01/15/21 Status: Ordered gabapentin 100 mg oral capsule 100 mg, 1, capsule, By Mouth, 2 times a day, # 60 capsule, Refills 2, Tot. Refills 2, Maintenance, 05/11/23 14:31:00 EST, Route to Pharmacy Electronically, [facility] #[id number], Partial fill upon patient request if the prescription is for a genna... Start Date: 05/11/23 Status: Ordered guaiFENesin 400 mg oral tablet 1 tablet = 400 mg, By Mouth, Every 4 hours, PRN as needed for congestion and cough, # 30 tablet, 1 Refills, Maintenance, 08/27/21 13:40:00 EDT, Tablet, [facility] #[id number], Partial fill upon patient request if the [...] 2 Refills, Maintenance, 08/17/21 13:14:00 EDT, Syrup, [facility] #[id number], 15 mL By Mouth Daily,PRN:as needed for [...] 5 Refills, Maintenance, 11/16/22 8:09:00 EDT, Tablet, [facility] #[id number], Partial fill upon patient request if the prescription is for a schedule II opioid drug., 164, cm, 10/25/22 13:5... Start Date: 11/16/22 Stop Date: 05/15/23 Status: Ordered levothyroxine 75 mcg (0.075 mg) oral tablet 1 tablet = 75 mcg, By Mouth, Daily, TK 1 T PO D, # 90 tablet, 1 Refills, Maintenance, 03/23/23 8:46:00 EST, Tablet, [facility] #[id number], Partial fill upon patient request if the prescription is for a schedule II opioid drug., 164, cm, ... Start Date: 03/23/23 Status: Ordered lidocaine 4% mucous membrane solution 1 application, Topically, 2 times a day, PRN Pain , Mild, # 1 each, 0 Refills, Maintenance, 05/22/20 16:43:00 EST, [facility] #[id number], Partial fill upon patient request if the prescription is for a schedule II opioid drug., 1 application Topi... Start Date: 05/22/20 Status: Ordered midodrine 5 mg oral tablet 1, tablet, By Mouth, 3 times a day, # 90 tablet, Refills 3, Tot. Refills 3, Maintenance, 10/27/21 15:24:00 EDT, Route to Pharmacy Electronically, [facility] #[id number], 160, cm, 08/27/21 13:11:00 EDT, Height, 57.86, [...] capsule, 1 Refills, Maintenance, 04/20/23 19:37:00 EST, [facility] #[id number], 164, cm, 12/27/22 17:03:00 EDT, Height Start [...] 03/23/23 8:47:00 EST, Route to Pharmacy Electronically, [facility] #[id number], 164, cm, 12/27/22 17:03:00 EDT, Height Start Date: 03/23/23 Status: Ordered [facility] bed mattress [facility] bed mattress, See Instructions, # 1 [...] Pre-syncope Confirmed Active Orthostatic hypotension Confirmed Active *[id number] Utility Inspector Yi Campos Confirmed Active Pain of right sacroiliac joint Confirmed Active Seizures Confirmed Active Lewy body dementia Confirmed Active Tinea cruris Confirmed Active Unintentional weight loss Confirmed Active Urinary incontinence Confirmed Active Vitamin D deficiency Confirmed Active Social History Social History Type Response Smoking Status Former smoker entered on: 08/26/15 Sex Patient Care team information Care Team Personnel Name: Adela Vu RN Position: [facility] RN Member Role: Primary Care Nurse Name: Matilde Mahmood RN Position: [facility] RN Member Role: Primary Care Nurse Name: Roberta Felipe NP Position: [facility] PCO Associate Professional Member Role: PCP Address: Address: [address] [place] [address] Name: Maci Kruse RN Position: [facility] SN RN Member Role: Primary Care Nurse Name: Lidya Lyons RN Position: [facility] RN Member Role: Primary Care Nurse Name: Lyudmila Ortez RN Position: [facility] RN Member Role: Primary Care Nurse Name: Lilo Maldonado RN Position: [facility] RN Member Role: Primary Care Nurse Name: Anuj Murillo RN Position: [facility] RN Member Role: Primary Care Nurse Name: Jasmin Oliva Position: [facility] Outreach Member Role: Lifetime Consulting Physician Name: Suzanne Celeste RN Position: [facility] RN Member Role: Primary Care Nurse Name: Lily Solis RN Position: [facility] Onco RN Member Role: Primary Care Nurse Name: Nancy Morrow RN Position: S RN Member Role: Primary Care Nurse Name: Etta Dewitt RN Position: [facility] RN Member Role: Primary Care Nurse Care Team Related Persons Name: JESSIKA HEARD Address: [address] [address] Name: JESSICA JOSUE Address: home [address] [place] [address] Name: CARLOS CEJA Address: home [address] [place] [id number]
--- OUTSIDE RECORDS SUMMARY | 2023-11-25 18:42 | XMS_ITS | Continuity of Care Document ---
Author Organization [facility] Address [address] [place] [address]- Care Team Providers Care Education Coordinator Name Role Phone Destinee JIMENEZ, Roberta Merida Primary Care Physician [facility] Date[facility]): 10[facility] - 11/03/[address] [address] Allergies, Adverse Reactions, Alerts Substance Reaction Severity Status penicillin rash Active Immunizations Given and Recorded Vaccine Date Status Refusal Reason [id number] 12y+ bivalent booster vax 03/05/22 Given influenza [...] inactivated 1 05/31/12 Gi davonte SARS-CoV-2 mRNA (ztpqzhl-izgz-vdmqh) vax 06/19/21 Given SARS-CoV-2 (COVID-19) mRNA BNT-162b2 vac 05/17/20 Given SARS-CoV-2 (COVID-19) mRNA BNT-162b2 vac 2 04/26/20 Given pneumococcal 13-valent vaccine 08/31/16 Given pneumococcal 23-valent vaccine 3 05/31/12 Given tetanus/diphtheria/pertussis, acel(Tdap) 4 05/31/12 Given 1Admin Note: VIS dated 09/13/11 2Result Comment: Administered by Dalia Olguin DAIRY DEPARTMENT MANAGER 3Admin Note: VIS dated 12/17/08 4Admin Note: VIS dated 04/03/11 Medications Artificial Tears preserved solution 1 drops, Eyes, Both, 4 times a day, PRN Dry Eyes, # 10 mL, 11 Refills, Maintenance, 01/26/22 14:13:00 EST, Ophth Solution, [facility] #[id number], Partial fill upon patient request if the [...] tablet, 5 Refills, Maintenance, 08/26/22 16:55:00 EDT, [facility] #[id number], Please print in lithuanian, 160, cm, 06/18/22 14:50:00 EDT, Height Start [...] Gm, 1 Refills, Maintenance, 06/18/2314:05:00 EDT, Cream, [facility] #[id number], Partial fill upon patient request if the prescription is for a schedule II opioid drug., 1 applicatio... Start Date: 06/18/22 Status: Ordered docusate sodium 100 mg oral capsule 100 mg, 1, capsule, By Mouth, 2 times a day, PRN, # 60 capsule, Refills 3, Tot. Refills 3, Maintenance, for constipation, 01/26/22 14:13:00 EST, Route to Pharmacy Electronically, [facility][id number], Partial fill upon patient request if the pr... Start Date: 01/26/22 Status: Ordered Eucerin Eczema Relief topical cream 1 application, Topically, 2 times a day, # 240 Gm, 5 Refills, Maintenance, 01/15/21 16:05:00 EDT, [facility] #[id number], Partial fill upon patient request if the prescription is for a schedule II opioid drug., 1 application Topically 2 times a d... Start Date: 01/15/21 Status: Ordered gabapentin 100 mg oral capsule 100 mg, 1, capsule, By Mouth, 2 times a day, # 60 capsule, Refills 2, Tot. Refills 2, Maintenance, 05/11/23 14:31:00 EST, Route to Pharmacy Electronically, [facility] #[id number], Partial fill upon patient request if the prescription is for a genna... Start Date: 05/11/23 Status: Ordered guaiFENesin 400 mg oral tablet 1 tablet = 400 mg, By Mouth, Every 4 hours, PRN as needed for congestion and cough, # 30 tablet, 1 Refills, Maintenance, 08/27/21 13:40:00 EDT, Tablet, [facility] #[id number], Partial fill upon patient request if the [...] 2 Refills, Maintenance, 08/17/21 13:14:00 EDT, Syrup, [facility] #[id number], 15 mL By Mouth Daily,PRN:as needed for [...] 5 Refills, Maintenance, 11/16/22 8:09:00 EDT, Tablet, [facility] #[id number], Partial fill upon patient request if the prescription is for a schedule II opioid drug., 164, cm, 10/25/22 13:5... Start Date: 11/16/22 Stop Date: 05/15/23 Status: Ordered levothyroxine 75 mcg (0.075 mg) oral tablet 1 tablet = 75 mcg, By Mouth, Daily, TK 1 T PO D, # 90 tablet, 1 Refills, Maintenance, 10/10/23 14:32:00 EDT, Tablet, [facility] #[id number], Partial fill upon patient request if the prescriptionis for a schedule II opioid drug., 164, cm, ... Start Date: 10/10/23 Status: Ordered lidocaine 4% mucous membrane solution 1 application, Topically, 2 times a day, PRN Pain , Mild, # 1 each, 0 Refills, Maintenance, 05/22/20 16:43:00 EST, [facility] #[id number], Partial fill upon patient request if the prescription is for a schedule II opioid drug., 1 application Topi... Start Date: 05/22/20 Status: Ordered midodrine 5 mg oral tablet 1, tablet, By Mouth, 3 times a day, # 90 tablet, Refills 3, Tot. Refills 3, Maintenance, 10/27/21 15:24:00 EDT, Route to Pharmacy Electronically, [facility] #[id number], 160, cm, 08/27/21 13:11:00 EDT, Height, 57.86, kg, 04/12/20 23:44:00 Dr... MEGAN Start Date: 10/27/21 Status: Ordered Nutritional Supplements See Instructions, # 90 each, Refills 11, Tot. Refills 11, Maintenance, 350 kcal, 8oz, q 8 hrs by mouth Ensure Plus Vanilla and strawberry, 1 can TID by mouth, for unintended weight loss related to advanced dementia R63.4, G31.83, 10/11/23 16:16:00 ED... Start Date: 10/11/23 Status: Ordered omeprazole 40 mg oral enteric coated capsule 1 capsule, By Mouth, Daily, # 90 capsule, 1 Refills, Maintenance, 04/20/23 19:37:00 EST, [facility] #[id number], 164, cm, 12/27/22 17:03:00 EDT, Height Start [...] 03/23/23 8:47:00 EST, Route to Pharmacy Electronically, [facility] #[id number], 164, cm, 12/27/22 17:03:00 EDT, Height Start Date: 03/23/23 Status: Ordered Tums 500 mg oral tablet, chewable 500 mg, 1, tablet, Chew, 3 times a day, PRN, # 100 tablet, Refills 1, Tot. Refills 1, Maintenance, as needed for dyspepsia, 10/18/23 12:12:00 EDT, Route to Pharmacy Electronically, [facility] #[id number], Partial fill upon patient request if the... Start Date: 10/18/23 Status: Ordered [facility] bed mattress [facility] bed mattress, See Instructions, # [...] Confirmed Active Dry eyes, bilateral Confirmed Active Dysphagia Confirmed Active History of pulmonary embolism Confirmed Active Hearing loss Confirmed Active Adult hypothyroidism Confirmed Active Cerumen impaction Confirmed Active Chronic pruritus, skin Confirmed Active Low back pain Confirmed Active Hypotension Confirmed Active Myalgia Confirmed Active Pre-syncope Confirmed Active Orthostatic hypotension Confirmed Active *[id number] Administrative Support Manager Yi Campos Confirmed Active Pain of [...] Associate Professional Member Role: PCP Address: Address: [address] [place] [id number] Name: Maci Kruse RN Position: [facility] RN Member [...] Persons Name: JESSIKA HEARD Address: home [address] [place] [id number] Name: JESSICA JOSUE Address: home [address] [place] [id number] Name: CARLOS CEJA Address: home [address] [place] [id number]
--- OUTSIDE RECORDS SUMMARY | 2023-11-25 18:42 | XMS_ITS | Continuity of Care Document ---
Author Organization [facility] Address [address] [place] [address]- Care Team Providers Care Bilingual Research Interviewer Name Role Phone Destinee JIMENEZ, Roberta Merida Primary Care Physician [facility] Date[facility]): 08/02/23 - 09/01/[address] [address]- Allergies, Adverse Reactions, Alerts Substance Reaction Severity Status penicillin rash Active Immunizations Given and Recorded Vaccine Date Status Refusal Reason [id number] 12y+ bivalent booster vax 03/05/22 Given influenza [...] 12/13/12 Give n influenza virus vaccine, inactivated 05/31/12 Gi davonte SARS-CoV-2 mRNA (jokuebh-niij-nyzzi) vax 06/19/21 Given SARS-CoV-2 (COVID-19) mRNA BNT-162b2 [...] Refills, Maintenance, 01/26/22 14:13:00 EST, Ophth Solution, [facility] #[id number], Partial fill upon patient request if the [...] tablet, 5 Refills, Maintenance, 08/26/22 16:55:00 EDT, [facility] #[id number], Please print in english, 160, cm, 06/18/22 [...] Gm, 1 Refills, Maintenance, 06/18/2314:05:00 EDT, Cream, [email or web address] #[id number], Partial fill upon patient request if the prescription is for a schedule II opioid drug., 1 applicatio... Start Date: 06/18/22 Status: Ordered docusate sodium 100 mg oral capsule 100 mg, 1, capsule, By Mouth, 2 times a day, PRN, # 60 capsule, Refills 3, Tot. Refills 3, Maintenance, for constipation, 01/26/22 14:13:00 EST, Route to Pharmacy Electronically, [email or web address]#[id number], Partial fill upon patient request if the pr... Start Date: 01/26/22 Status: Ordered Eucerin Eczema Relief topical cream 1 application, Topically, 2 times a day, # 240 Gm, 5 Refills, Maintenance, 01/15/21 16:05:00 EDT, [email or web address] #[id number], Partial fill upon patient request if the prescription is for a schedule II opioid drug., 1 application Topically 2 times a d... Start Date: 01/15/21 Status: Ordered gabapentin 100 mg oral capsule 100 mg, 1, capsule, By Mouth, 2 times a day, # 60 capsule, Refills 2, Tot. Refills 2, Maintenance, 05/11/23 14:31:00 EST, Route to Pharmacy Electronically, [facility] #[id number], Partial fill upon patient request if the prescription is for a genna... Start Date: 05/11/23 Status: Ordered guaiFENesin 400 mg oral tablet 1 tablet = 400 mg, By Mouth, Every 4 hours, PRN as needed for congestion and cough, # 30 tablet, 1 Refills, Maintenance, 08/27/21 13:40:00 EDT, Tablet, [facility] #[id number], Partial fill upon patient request if the [...] 2 Refills, Maintenance, 08/17/21 13:14:00 EDT, Syrup, [facility] #[id number], 15 mL By Mouth Daily,PRN:as needed for [...] 5 Refills, Maintenance, 11/16/22 8:09:00 EDT, Tablet, [email or web address] #[id number], Partial fill upon patient request if the prescription is for a schedule II opioid drug., 164, cm, 10/25/22 13:5... Start Date: 11/16/22 Stop Date: 05/15/23 Status: Ordered levothyroxine 75 mcg (0.075 mg) oral tablet 1 tablet = 75 mcg, By Mouth, Daily, TK 1 T PO D, # 90 tablet, 1 Refills, Maintenance, 03/23/23 8:46:00 EST, Tablet, [email or web address] #[id number], Partial fill upon patient request if the prescription is for a schedule II opioid drug., 164, cm, ... Start Date: 03/23/23 Status: Ordered lidocaine 4% mucous membrane solution 1 application, Topically, 2 times a day, PRN Pain , Mild, # 1 each, 0 Refills, Maintenance, 05/22/20 16:43:00 EST, [facility] #[id number], Partial fill upon patient request if the prescription is for a schedule II opioid drug., 1 application Topi... Start Date: 05/22/20 Status: Ordered midodrine 5 mg oral tablet 1, tablet, By Mouth, 3 times a day, # 90 tablet, Refills 3, Tot. Refills 3, Maintenance, 10/27/21 15:24:00 EDT, Route to Pharmacy Electronically, [facility] #[id number], 160, cm, 08/27/21 13:11:00 EDT, Height, 57.86, [...] capsule, 1 Refills, Maintenance, 04/20/23 19:37:00 EST, [email or web address] #[id number], 164, cm, 12/27/22 17:03:00 EDT, Height Start [...] 03/23/23 8:47:00 EST, Route to Pharmacy Electronically, [email or web address] #[id number], 164, cm, 12/27/22 17:03:00 EDT, Height Start Date: 03/23/23 Status: Ordered [facility] bed mattress [facility] bed mattress, See Instructions, # 1 [...] Pre-syncope Confirmed Active Orthostatic hypotension Confirmed Active *[phone] Asset Protection Manager Yi Campos Confirmed Active Pain of [...] Team Personnel Name: Adela Vu RN Position: [facility] RN Member Role: Primary Care Nurse Name: Matilde Mahmood RN Position: [facility] RN Member Role: Primary Care Nurse Name: Roberta Felipe NP Position: [facility] PCO Associate Professional Member Role: PCP Address: Address: [address] [place] [address] Name: Maci Kruse RN Position: [facility] SN RN Member Role: Primary Care Nurse Name: Lidya Lyons RN Position: [facility] RN Member Role: Primary Care Nurse Name: Lyudmila Ortez RN Position: [facility] RN Member Role: Primary Care Nurse Name: Lilo Maldonado RN Position: [facility] RN Member Role: Primary Care Nurse Name: Anuj Murillo RN Position: [facility] RN Member Role: Primary Care Nurse Name: Jasmin Oliva Position: [facility] Outreach Member Role: Lifetime Consulting Physician Name: Suzanne Celeste RN Position: [facility] RN Member Role: Primary Care Nurse Name: Lily Solis RN Position: [facility] Onco RN Member Role: Primary Care Nurse Name: Nancy Morrow RN Position: S RN Member Role: Primary Care Nurse Name: Etta Dewitt RN Position: [facility] RN Member Role: Primary Care Nurse Care Team Related Persons Name: JESSIKA HEARD Address: [address] [address] Name: JESSICA JOSUE Address: home [address] [place] [address] Name: CARLOS CEJA Address: home [address] [place] [address]
--- OUTSIDE RECORDS SUMMARY | 2023-11-25 18:44 | XMS_ITS | Continuity of Care Document ---
Author Organization [facility] Address [address] [place] [id number]- Care Team Providers Care Social Research Assistant Name Role Phone Destinee JIMENEZ, Roberta Merida Primary Care Physician [facility] Date[facility]): 08[facility]09[facility]23 - 09/08/[address] [id number] Allergies, Adverse Reactions, Alerts Substance Reaction Severity Status penicillin rash Active Immunizations Given and Recorded Vaccine Date Status Refusal Reason [id number] 12y+ bivalent booster vax 03/05/22 Given influenza [...] inactivated 1 05/31/12 Gi davonte SARS-CoV-2 mRNA ([id number]-wcfi-htetx) vax 06/19/21 Given SARS-CoV-2 (COVID-19) mRNA BNT-162b2 vac 05/17/20 Given SARS-CoV-2 (COVID-19) mRNA BNT-162b2 vac 2 04/26/20 Given pneumococcal 13-valent vaccine 08/31/16 Given pneumococcal 23-valent vaccine 3 05/31/12 Given tetanus/diphtheria/pertussis, acel(Tdap) 4 05/31/12 Given 1Admin Note: VIS dated 09/13/11 2Result Comment: Administered by Dalia Olguin AUTO BODY REPAIR TEACHER 3Admin Note: VIS dated 12/17/08 4Admin Note: VIS dated 04/03/11 Medications Artificial Tears preserved solution 1 drops, Eyes, Both, 4 times a day, PRN Dry Eyes, # 10 mL, 11 Refills, Maintenance, 01/26/22 14:13:00 EST, Ophth Solution, [facility] #[id number], Partial fill upon patient request if the [...] tablet, 5 Refills, Maintenance, 08/26/22 16:55:00 EDT, [facility] #[id number], Please print in turkish, 160, cm, 06/18/22 [...] Gm, 1 Refills, Maintenance, 06/18/2314:05:00 EDT, Cream, [facility] #[id number], Partial fill upon patient request if the prescription is for a schedule II opioid drug., 1 applicatio... Start Date: 06/18/22 Status: Ordered docusate sodium 100 mg oral capsule 100 mg, 1, capsule, By Mouth, 2 times a day, PRN, # 60 capsule, Refills 3, Tot. Refills 3, Maintenance, for constipation, 01/26/22 14:13:00 EST, Route to Pharmacy Electronically, [facility]#[id number], Partial fill upon patient request if the pr... Start Date: 01/26/22 Status: Ordered Eucerin Eczema Relief topical cream 1 application, Topically, 2 times a day, # 240 Gm, 5 Refills, Maintenance, 01/15/21 16:05:00 EDT, [facility] #[id number], Partial fill upon patient request if the prescription is for a schedule II opioid drug., 1 application Topically 2 times a d... Start Date: 01/15/21 Status: Ordered gabapentin 100 mg oral capsule 100 mg, 1, capsule, By Mouth, 2 times a day, # 60 capsule, Refills 2, Tot. Refills 2, Maintenance, 05/11/23 14:31:00 EST, Route to Pharmacy Electronically, [facility] #[id number], Partial fill upon patient request if the prescription is for a genna... Start Date: 05/11/23 Status: Ordered guaiFENesin 400 mg oral tablet 1 tablet = 400 mg, By Mouth, Every 4 hours, PRN as needed for congestion and cough, # 30 tablet, 1 Refills, Maintenance, 08/27/21 13:40:00 EDT, Tablet, [facility] #[id number], Partial fill upon patient request if the [...] 2 Refills, Maintenance, 08/17/21 13:14:00 EDT, Syrup, [facility] #[id number], 15 mL By Mouth Daily,PRN:as needed for [...] 5 Refills, Maintenance, 11/16/22 8:09:00 EDT, Tablet, [facility] #[id number], Partial fill upon patient request if the prescription is for a schedule II opioid drug., 164, cm, 10/25/22 13:5... Start Date: 11/16/22 Stop Date: 05/15/23 Status: Ordered levothyroxine 75 mcg (0.075 mg) oral tablet 1 tablet = 75 mcg, By Mouth, Daily, TK 1 T PO D, # 90 tablet, 1 Refills, Maintenance, 03/23/23 8:46:00 EST, Tablet, [facility] #[id number], Partial fill upon patient request if the prescription is for a schedule II opioid drug., 164, cm, ... Start Date: 03/23/23 Status: Ordered lidocaine 4% mucous membrane solution 1 application, Topically, 2 times a day, PRN Pain , Mild, # 1 each, 0 Refills, Maintenance, 05/22/20 16:43:00 EST, [facility] #[id number], Partial fill upon patient request if the prescription is for a schedule II opioid drug., 1 application Topi... Start Date: 05/22/20 Status: Ordered midodrine 5 mg oral tablet 1, tablet, By Mouth, 3 times a day, # 90 tablet, Refills 3, Tot. Refills 3, Maintenance, 10/27/21 15:24:00 EDT, Route to Pharmacy Electronically, [facility] #[id number], 160, cm, 08/27/21 13:11:00 EDT, Height, 57.86, [...] capsule, 1 Refills, Maintenance, 04/20/23 19:37:00 EST, [facility] #[id number], 164, cm, 12/27/22 17:03:00 EDT, Height Start [...] 03/23/23 8:47:00 EST, Route to Pharmacy Electronically, [facility] #[id number], 164, cm, 12/27/22 17:03:00 EDT, Height Start Date: 03/23/23 Status: Ordered [facility] bed mattress [facility] bed mattress, See Instructions, # 1 [...] Pre-syncope Confirmed Active Orthostatic hypotension Confirmed Active *[id number] Ecmo Specialist Yi Campos Confirmed Active Pain of [...] Team Personnel Name: Adela Vu RN Position: [facility] RN Member Role: Primary Care Nurse Name: Matilde Mahmood RN Position: [facility] RN Member Role: Primary Care Nurse Name: Roberta Felipe NP Position: [facility] PCO Associate Professional Member Role: PCP Address: Address: [address] [place] [address] Name: Maci Kruse RN Position: [facility] SN RN Member Role: Primary Care Nurse Name: Lidya Lyons RN Position: [facility] RN Member Role: Primary Care Nurse Name: Lyudmila Ortez RN Position: [facility] RN Member Role: Primary Care Nurse Name: Lilo Maldonado RN Position: [facility] RN Member Role: Primary Care Nurse Name: Anuj Murillo RN Position: [facility] RN Member Role: Primary Care Nurse Name: Jasmin Oliva Position: [facility] Outreach Member Role: Lifetime Consulting Physician Name: Suzanne Celeste RN Position: [facility] RN Member Role: Primary Care Nurse Name: Lily Solis RN Position: [facility] Onco RN Member Role: Primary Care Nurse Name: Nancy Morrow RN Position: [facility] RN Member Role: Primary Care Nurse Name: Etta Dewitt RN Position: [facility] RN Member Role: Primary Care Nurse Care Team Related Persons Name: JESSIKA HEARD Address: [address] [address] Name: JESSICA JOSUE Address: home [address] [place] [address] Name: CARLOS CEJA Address: home [address] [place] [id number]
--- OUTSIDE RECORDS SUMMARY | 2023-11-25 18:44 | XMS_ITS | Continuity of Care Document ---
Author Organization [facility] Address [address] [place] [id number]- Care Team Providers Care Manager Of Production Name Role Phone Destinee JIMENEZ, Roberta Merida Primary Care Physician [facility]): 10[facility]23 - 11/09/[address] [id number] Allergies, Adverse Reactions, Alerts Substance Reaction Severity Status penicillin rash Active Immunizations Given and Recorded Vaccine Date Status Refusal Reason [id number] 12y+ bivalent booster vax 03/05/22 Given influenza [...] inactivated 1 05/31/12 Gi davonte SARS-CoV-2 mRNA (dicxliq-odxz-mntge) vax 06/19/21 Given SARS-CoV-2 (COVID-19) mRNA BNT-162b2 vac 05/17/20 Given SARS-CoV-2 (COVID-19) mRNA BNT-162b2 vac 2 04/26/20 Given pneumococcal 13-valent vaccine 08/31/16 Given pneumococcal 23-valent vaccine 3 05/31/12 Given tetanus/diphtheria/pertussis, acel(Tdap) 4 05/31/12 Given 1Admin Note: VIS dated 09/13/11 2Result Comment: Administered by Dalia Olguin WIRELESS NETWORK ENGINEER 3Admin Note: VIS dated 12/17/08 4Admin Note: VIS dated 04/03/11 Medications Artificial Tears preserved solution 1 drops, Eyes, Both, 4 times a day, PRN Dry Eyes, # 10 mL, 11 Refills, Maintenance, 01/26/22 14:13:00 EST, Ophth Solution, [facility] #[id number], Partial fill upon patient request if the [...] tablet, 5 Refills, Maintenance, 08/26/22 16:55:00 EDT, [facility] #[id number], Please print in sami, 160, cm, 06/18/22 [...] Gm, 1 Refills, Maintenance, 06/18/2314:05:00 EDT, Cream, [facility] #[id number], Partial fill upon patient request if the prescription is for a schedule II opioid drug., 1 applicatio... Start Date: 06/18/22 Status: Ordered docusate sodium 100 mg oral capsule 100 mg, 1, capsule, By Mouth, 2 times a day, PRN, # 60 capsule, Refills 3, Tot. Refills 3, Maintenance, for constipation, 01/26/22 14:13:00 EST, Route to Pharmacy Electronically, [facility]#[id number], Partial fill upon patient request if the pr... Start Date: 01/26/22 Status: Ordered Eucerin Eczema Relief topical cream 1 application, Topically, 2 times a day, # 240 Gm, 5 Refills, Maintenance, 01/15/21 16:05:00 EDT, [facility] #[id number], Partial fill upon patient request if the prescription is for a schedule II opioid drug., 1 application Topically 2 times a d... Start Date: 01/15/21 Status: Ordered gabapentin 100 mg oral capsule 100 mg, 1, capsule, By Mouth, 2 times a day, # 60 capsule, Refills 2, Tot. Refills 2, Maintenance, 05/11/23 14:31:00 EST, Route to Pharmacy Electronically, [facility] #[id number], Partial fill upon patient request if the prescription is for a genna... Start Date: 05/11/23 Status: Ordered guaiFENesin 400 mg oral tablet 1 tablet = 400 mg, By Mouth, Every 4 hours, PRN as needed for congestion and cough, # 30 tablet, 1 Refills, Maintenance, 08/27/21 13:40:00 EDT, Tablet, [facility] #[id number], Partial fill upon patient request if the [...] 2 Refills, Maintenance, 08/17/21 13:14:00 EDT, Syrup, [facility] #[id number], 15 mL By Mouth Daily,PRN:as needed for [...] 5 Refills, Maintenance, 11/16/22 8:09:00 EDT, Tablet, [facility] #[id number], Partial fill upon patient request if the prescription is for a schedule II opioid drug., 164, cm, 10/25/22 13:5... Start Date: 11/16/22 Stop Date: 05/15/23 Status: Ordered levothyroxine 75 mcg (0.075 mg) oral tablet 1 tablet = 75 mcg, By Mouth, Daily, TK 1 T PO D, # 90 tablet, 1 Refills, Maintenance, 10/10/23 14:32:00 EDT, Tablet, [facility] #[id number], Partial fill upon patient request if the prescriptionis for a schedule II opioid drug., 164, cm, ... Start Date: 10/10/23 Status: Ordered lidocaine 4% mucous membrane solution 1 application, Topically, 2 times a day, PRN Pain , Mild, # 1 each, 0 Refills, Maintenance, 05/22/20 16:43:00 EST, [facility] #[id number], Partial fill upon patient request if the prescription is for a schedule II opioid drug., 1 application Topi... Start Date: 05/22/20 Status: Ordered midodrine 5 mg oral tablet 1, tablet, By Mouth, 3 times a day, # 90 tablet, Refills 3, Tot. Refills 3, Maintenance, 10/27/21 15:24:00 EDT, Route to Pharmacy Electronically, [facility] #[id number], 160, cm, 08/27/21 13:11:00 EDT, Height, 57.86, [...] capsule, 1 Refills, Maintenance, 04/20/23 19:37:00 EST, [facility] #[id number], 164, cm, 12/27/22 17:03:00 EDT, Height Start [...] 03/23/23 8:47:00 EST, Route to Pharmacy Electronically, [facility] #[id number], 164, cm, 12/27/22 17:03:00 EDT, Height Start Date: 03/23/23 Status: Ordered Tums 500 mg oral tablet, chewable 500 mg, 1, tablet, Chew, 3 times a day, PRN, # 100 tablet, Refills 1, Tot. Refills 1, Maintenance, as needed for dyspepsia, 10/18/23 12:12:00 EDT, Route to Pharmacy Electronically, [facility] #[id number], Partial fill upon patient request if the... Start Date: 10/18/23 Status: Ordered [facility] bed mattress 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 Pain of right sacroiliac joint Confirmed Active Seizures Confirmed Active Lewy body dementia Confirmed Active Tinea cruris Confirmed Active Unintentional weight loss Confirmed Active Urinary incontinence Confirmed Active Vitamin D deficiency Confirmed Active Social History Social History Type Response Smoking Status Former smoker entered on: 08/26/15 Sex Patient Care team information Care Team Personnel Name: Adela Vu RN Position: [facility] RN Member Role: Primary Care Nurse Name: Matilde Mahmood RN Position: [facility] RN Member Role: Primary Care Nurse Name: Roberta Felipe NP Position: [facility] PCO Associate Professional Member Role: PCP Address: Address: [address] [place] [id number] Name: Maci Kruse RN Position: [facility] RN Member Role: Primary Care Nurse Name: Lidya Lyons RN Position: [facility] RN Member Role: Primary Care Nurse Name: Lyudmila Ortez RN Position: [facility] RN Member Role: Primary Care Nurse Name: Lilo Maldonado RN Position: [facility] RN Member Role: Primary Care Nurse Name: Anuj Murillo RN Position: [facility] RN Member Role: Primary Care Nurse Name: Jasmin Oliva Position: [facility] Outreach Member Role: Lifetime Consulting Physician Name: Suzanne Celeste RN Position: [facility] RN Member Role: Primary Care Nurse Name: Lily Solis RN Position: [facility] Onco RN Member Role: Primary Care Nurse Name: Nancy Morrow RN Position: [facility] RN Member Role: Primary Care Nurse Name: Etta Dewitt RN Position: [facility] RN Member Role: Primary Care Nurse Care Team Related Persons Name: JESSIKA HEARD Address: home [address] [place] [id number] Name: JESSICA JOSUE Address: home [address] [place] [id number] Name: CARLOS CEJA Address: home [address] [place] [id number]
--- OUTSIDE RECORDS SUMMARY | 2023-11-25 18:45 | XMS_ITS | Continuity of Care Document ---
Author Organization [facility] Address [address] [place] [address]- Care Team Providers Care Coating Operator Name Role Phone Destinee JIMENEZ, Roberta Merida Primary Care Physician [facility]): [facility] - 09/10/[address] [id number] Allergies, Adverse Reactions, Alerts Substance Reaction Severity Status penicillin rash Active Immunizations Given and Recorded Vaccine Date Status Refusal Reason [id number] 12y+ bivalent booster vax 03/05/22 Given influenza [...] inactivated 1 05/31/12 Gi davonte SARS-CoV-2 mRNA (udryxgi-mxey-gcdmx) vax 06/19/21 Given SARS-CoV-2 (COVID-19) mRNA BNT-162b2 vac 05/17/20 Given SARS-CoV-2 (COVID-19) mRNA BNT-162b2 vac 2 04/26/20 Given pneumococcal 13-valent vaccine 08/31/16 Given pneumococcal 23-valent vaccine 3 05/31/12 Given tetanus/diphtheria/pertussis, acel(Tdap) 4 05/31/12 Given 1Admin Note: VIS dated 09/13/11 2Result Comment: Administered by Dalia Olguin LEATHER WORKER 3Admin Note: VIS dated 12/17/08 4Admin Note: VIS dated 04/03/11 Medications Artificial Tears preserved solution 1 drops, Eyes, Both, 4 times a day, PRN Dry Eyes, # 10 mL, 11 Refills, Maintenance, 01/26/22 14:13:00 EST, Ophth Solution, [facility] #[id number], Partial fill upon patient request if the [...] tablet, 5 Refills, Maintenance, 08/26/22 16:55:00 EDT, [facility] #[id number], Please print in upper sorbian, 160, cm, 06/18/22 14:50:00 EDT, Height Start [...] Gm, 1 Refills, Maintenance, 06/18/2314:05:00 EDT, Cream, [facility] #[id number], Partial fill upon patient request if the prescription is for a schedule II opioid drug., 1 applicatio... Start Date: 06/18/22 Status: Ordered docusate sodium 100 mg oral capsule 100 mg, 1, capsule, By Mouth, 2 times a day, PRN, # 60 capsule, Refills 3, Tot. Refills 3, Maintenance, for constipation, 01/26/22 14:13:00 EST, Route to Pharmacy Electronically, [facility]#[id number], Partial fill upon patient request if the pr... Start Date: 01/26/22 Status: Ordered Eucerin Eczema Relief topical cream 1 application, Topically, 2 times a day, # 240 Gm, 5 Refills, Maintenance, 01/15/21 16:05:00 EDT, [facility] #[id number], Partial fill upon patient request if the prescription is for a schedule II opioid drug., 1 application Topically 2 times a d... Start Date: 01/15/21 Status: Ordered gabapentin 100 mg oral capsule 100 mg, 1, capsule, By Mouth, 2 times a day, # 60 capsule, Refills 2, Tot. Refills 2, Maintenance, 05/11/23 14:31:00 EST, Route to Pharmacy Electronically, [facility] #[id number], Partial fill upon patient request if the prescription is for a genna... Start Date: 05/11/23 Status: Ordered guaiFENesin 400 mg oral tablet 1 tablet = 400 mg, By Mouth, Every 4 hours, PRN as needed for congestion and cough, # 30 tablet, 1 Refills, Maintenance, 08/27/21 13:40:00 EDT, Tablet, [facility] #[id number], Partial fill upon patient request if the [...] 2 Refills, Maintenance, 08/17/21 13:14:00 EDT, Syrup, [facility] #[id number], 15 mL By Mouth Daily,PRN:as needed for [...] 5 Refills, Maintenance, 11/16/22 8:09:00 EDT, Tablet, [facility] #[id number], Partial fill upon patient request if the prescription is for a schedule II opioid drug., 164, cm, 10/25/22 13:5... Start Date: 11/16/22 Stop Date: 05/15/23 Status: Ordered levothyroxine 75 mcg (0.075 mg) oral tablet 1 tablet = 75 mcg, By Mouth, Daily, TK 1 T PO D, # 90 tablet, 1 Refills, Maintenance, 03/23/23 8:46:00 EST, Tablet, [facility] #[id number], Partial fill upon patient request if the prescription is for a schedule II opioid drug., 164, cm, ... Start Date: 03/23/23 Status: Ordered lidocaine 4% mucous membrane solution 1 application, Topically, 2 times a day, PRN Pain , Mild, # 1 each, 0 Refills, Maintenance, 05/22/20 16:43:00 EST, [facility] #[id number], Partial fill upon patient request if the prescription is for a schedule II opioid drug., 1 application Topi... Start Date: 05/22/20 Status: Ordered midodrine 5 mg oral tablet 1, tablet, By Mouth, 3 times a day, # 90 tablet, Refills 3, Tot. Refills 3, Maintenance, 10/27/21 15:24:00 EDT, Route to Pharmacy Electronically, [facility] #[id number], 160, cm, 08/27/21 13:11:00 EDT, Height, 57.86, [...] capsule, 1 Refills, Maintenance, 04/20/23 19:37:00 EST, [facility] #[id number], 164, cm, 12/27/22 17:03:00 EDT, Height Start [...] 03/23/23 8:47:00 EST, Route to Pharmacy Electronically, 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 Pain of right sacroiliac joint Confirmed Active Seizures Confirmed Active Lewy body dementia Confirmed Active Tinea cruris Confirmed Active Unintentional weight loss Confirmed Active Urinary incontinence Confirmed Active Vitamin D deficiency Confirmed Active Social History Social History Type Response Smoking Status Former smoker entered on: 08/26/15 Sex Patient Care team information Care Team Personnel Name: Adela Vu RN Position: [facility] RN Member Role: Primary Care Nurse Name: Matilde Mahmood RN Position: [facility] RN Member Role: Primary Care Nurse Name: Roberta Felipe NP Position: [facility] PCO Associate Professional Member Role: PCP Address: Address: [address] [place] [address] Name: Maci Kruse RN Position: [facility] SN RN Member Role: Primary Care Nurse Name: Lidya Lyons RN Position: [facility] RN Member Role: Primary Care Nurse Name: Lyudmila Ortez RN Position: [facility] RN Member Role: Primary Care Nurse Name: Lilo Maldonado RN Position: [facility] RN Member Role: Primary Care Nurse Name: Anuj Murillo RN Position: [facility] RN Member Role: Primary Care Nurse Name: Jasmin Oliva Position: [facility] Outreach Member Role: Lifetime Consulting Physician Name: Suzanne Celeste RN Position: [facility] RN Member Role: Primary Care Nurse Name: Lily Solis RN Position: [facility] Onco RN Member Role: Primary Care Nurse Name: Nancy Morrow RN Position: [facility] RN Member Role: Primary Care Nurse Name: Etta Dewitt RN Position: [facility] RN Member Role: Primary Care Nurse Care Team Related Persons Name: JESSIKA HEARD Address: [address] [address] Name: JESSICA JOSUE Address: home [address] [place] [id number] Name: CARLOS CEJA Address: home [address] [place] [id number]
--- OUTSIDE RECORDS SUMMARY | 2023-11-25 18:46 | XMS_ITS | Continuity of Care Document ---
Author Organization [facility] Address [address] [place] [address]- Care Team Providers Care Ferry Engineer Name Role Phone Destinee JIMENEZ, Roberta Merida Primary Care Physician [facility] Date[facility]): 08[facility]23 - 09/10/[address] [address]- Attending Physician: Not on Staff, Attending MD Allergies, Adverse Reactions, Alerts Substance Reaction Severity Status penicillin rash Active Immunizations Given and Recorded Vaccine Date Status Refusal Reason [id number] 12y+ bivalent booster vax 03/05/22 Given influenza [...] inactivated 1 05/31/12 Gi davonte SARS-CoV-2 mRNA ([id number]-phdz-tfkrz) vax 06/19/21 Given SARS-CoV-2 (COVID-19) mRNA BNT-162b2 vac 05/17/20 Given SARS-CoV-2 (COVID-19) mRNA BNT-162b2 vac 2 04/26/20 Given pneumococcal 13-valent vaccine 08/31/16 Given pneumococcal 23-valent vaccine 3 05/31/12 Given tetanus/diphtheria/pertussis, acel(Tdap) 4 05/31/12 Given 1Admin Note: VIS dated 09/13/11 2Result Comment: Administered by Dalia Olguin DAIRY CATTLE FARM WORKER 3Admin Note: VIS dated 12/17/08 4Admin Note: VIS dated 04/03/11 Medications Artificial Tears preserved solution 1 drops, Eyes, Both, 4 times a day, PRN Dry Eyes, # 10 mL, 11 Refills, Maintenance, 01/26/22 14:13:00 EST, Ophth Solution, [facility] #[id number], Partial fill upon patient request if the [...] tablet, 5 Refills, Maintenance, 08/26/22 16:55:00 EDT, [facility] #[id number], Please print in sami, 160, cm, 06/18/22 [...] Gm, 1 Refills, Maintenance, 06/18/2314:05:00 EDT, Cream, [facility] #[id number], Partial fill upon patient request if the prescription is for a schedule II opioid drug., 1 applicatio... Start Date: 06/18/22 Status: Ordered docusate sodium 100 mg oral capsule 100 mg, 1, capsule, By Mouth, 2 times a day, PRN, # 60 capsule, Refills 3, Tot. Refills 3, Maintenance, for constipation, 01/26/22 14:13:00 EST, Route to Pharmacy Electronically, [facility][id number], Partial fill upon patient request if the pr... Start Date: 01/26/22 Status: Ordered Eucerin Eczema Relief topical cream 1 application, Topically, 2 times a day, # 240 Gm, 5 Refills, Maintenance, 01/15/21 16:05:00 EDT, [facility] #[id number], Partial fill upon patient request if the prescription is for a schedule II opioid drug., 1 application Topically 2 times a d... Start Date: 01/15/21 Status: Ordered gabapentin 100 mg oral capsule 100 mg, 1, capsule, By Mouth, 2 times a day, # 60 capsule, Refills 2, Tot. Refills 2, Maintenance, 05/11/23 14:31:00 EST, Route to Pharmacy Electronically, [facility] #[id number], Partial fill upon patient request if the prescription is for a genna... Start Date: 05/11/23 Status: Ordered guaiFENesin 400 mg oral tablet 1 tablet = 400 mg, By Mouth, Every 4 hours, PRN as needed for congestion and cough, # 30 tablet, 1 Refills, Maintenance, 08/27/21 13:40:00 EDT, Tablet, [facility] #[id number], Partial fill upon patient request if the [...] 2 Refills, Maintenance, 08/17/21 13:14:00 EDT, Syrup, [facility] #[id number], 15 mL By Mouth Daily,PRN:as needed for [...] 5 Refills, Maintenance, 11/16/22 8:09:00 EDT, Tablet, [facility] #[id number], Partial fill upon patient request if the prescription is for a schedule II opioid drug., 164, cm, 10/25/22 13:5... Start Date: 11/16/22 Stop Date: 05/15/23 Status: Ordered levothyroxine 75 mcg (0.075 mg) oral tablet 1 tablet = 75 mcg, By Mouth, Daily, TK 1 T PO D, # 90 tablet, 1 Refills, Maintenance, 03/23/23 8:46:00 EST, Tablet, [facility] #[id number], Partial fill upon patient request if the prescription is for a schedule II opioid drug., 164, cm, ... Start Date: 03/23/23 Status: Ordered lidocaine 4% mucous membrane solution 1 application, Topically, 2 times a day, PRN Pain , Mild, # 1 each, 0 Refills, Maintenance, 05/22/20 16:43:00 EST, [facility] #[id number], Partial fill upon patient request if the prescription is for a schedule II opioid drug., 1 application Topi... Start Date: 05/22/20 Status: Ordered midodrine 5 mg oral tablet 1, tablet, By Mouth, 3 times a day, # 90 tablet, Refills 3, Tot. Refills 3, Maintenance, 10/27/21 15:24:00 EDT, Route to Pharmacy Electronically, [facility] #[id number], 160, cm, 08/27/21 13:11:00 EDT, Height, 57.86, kg, 04/12/20 23:44:00 ESTDr... Start Date: 10/27/21 Status: Ordered Nutritional Supplements See Instructions, # 90 each, Refills 11, Tot. Refills 11, Maintenance, 360 kcal, 8oz, q 8 hrs by mouth Boost Plus Vanilla and strawberry, 1 can TID by mouth, for unintended weight loss related to advanced dementia R63.4, G31.83, 05/30/24 12:46:00 EDT... Start Date: 08/11/23 Status: Ordered omeprazole 40 mg oral enteric coated capsule 1 capsule, By Mouth, Daily, # 90 capsule, 1 Refills, Maintenance, 04/20/23 19:37:00 EST, [facility] #[id number], 164, cm, 12/27/22 17:03:00 EDT, Height Start [...] 03/23/23 8:47:00 EST, Route to Pharmacy Electronically, [facility] #[id number], 164, cm, 12/27/22 17:03:00 EDT, Height Start Date: 03/23/23 Status: Ordered Twin size hospital bed mattress Twin size [facility] bed mattress, See Instructions, # 1 [...] Pre-syncope Confirmed Active Orthostatic hypotension Confirmed Active *[id number] 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 Pain of right [...] Personnel Name: Adela Vu RN Position: [facility] RN Member Role: Primary Care Nurse Name: Matilde Mahmood RN Position: [facility] RN Member Role: Primary Care Nurse Name: Roberta Felipe NP Position: [facility] PCO Associate Professional Member Role: PCP Address: Address: [address] [place] [address] Name: Maci Kruse RN Position: [facility] SN RN Member Role: Primary Care Nurse Name: Lidya Lyons RN Position: [facility] RN Member Role: Primary Care Nurse Name: Lyudmila Ortez RN Position: [facility] RN Member Role: Primary Care Nurse Name: Lilo Maldonado RN Position: [facility] RN Member Role: Primary Care Nurse Name: Anuj Murillo RN Position: [facility] RN Member Role: Primary Care Nurse Name: Jasmin Oliva Position: [facility] Outreach Member Role: Lifetime Consulting Physician Name: Suzanne Celeste RN Position: [facility] RN Member Role: Primary Care Nurse Name: Lily Solis RN Position: [facility] Onco RN Member Role: Primary Care Nurse Name: Nancy Morrow RN Position: [facility] RN Member Role: Primary Care Nurse Name: Etta Dewitt RN Position: [facility] RN Member Role: Primary Care Nurse Care Team Related Persons Name: JESSIKA HEARD Address: [address] [address] Name: JESSICA JOSUE Address: home [address] [place] [id number] Name: CARLOS CEJA Address: home [address] [address]
--- OUTSIDE RECORDS SUMMARY | 2023-11-25 18:46 | XMS_ITS | Continuity of Care Document ---
Author Organization [facility] Address [address] [place] [address]- Care Team Providers Care Consumer Insights Specialist Name Role Phone Destinee JIMENEZ, Roberta Merida Primary Care Physician [phone] [facility]): 07[facility] - 08/17/[address] [address] Allergies, Adverse Reactions, Alerts Substance Reaction Severity Status penicillin rash Active Immunizations Given and Recorded Vaccine Date Status Refusal Reason [id number] 12y+ bivalent booster vax 03/05/22 Given influenza [...] vaccine, inactivated 05/31/12 Gi davonte SARS-CoV-2 mRNA (sdszvmp-lfav-rfzic) vax 06/19/21 Given SARS-CoV-2 (COVID-19) mRNA BNT-162b2 vac 05/17/20 Given SARS-CoV-2 (COVID-19) mRNA BNT-162b2 vac 2 04/26/20 Given pneumococcal 13-valent vaccine 08/31/16 Given pneumococcal 23-valent vaccine 3 05/31/12 Given tetanus/diphtheria/pertussis, acel(Tdap) 4 05/31/12 Given 1Admin Note: VIS dated 09/13/11 2Result Comment: Administered by Dalia Olguin PEOPLESOFT BUSINESS ANALYST 3Admin Note: VIS dated 12/17/08 4Admin Note: VIS dated 04/03/11 Medications Artificial Tears preserved solution 1 drops, Eyes, Both, 4 times a day, PRN Dry Eyes, # 10 mL, 11 Refills, Maintenance, 01/26/22 14:13:00 EST, Ophth Solution, [facility] #[id number], Partial fill upon patient request if the [...] tablet, 5 Refills, Maintenance, 08/26/22 16:55:00 EDT, [facility] #[id number], Please print in chinese, 160, cm, 06/18/22 14:50:00 EDT, Height Start [...] Gm, 1 Refills, Maintenance, 06/18/2314:05:00 EDT, Cream, [facility] #[id number], Partial fill upon patient request if the prescription is for a schedule II opioid drug., 1 applicatio... Start Date: 06/18/22 Status: Ordered docusate sodium 100 mg oral capsule 100 mg, 1, capsule, By Mouth, 2 times a day, PRN, # 60 capsule, Refills 3, Tot. Refills 3, Maintenance, for constipation, 01/26/22 14:13:00 EST, Route to Pharmacy Electronically, [facility]#[id number], Partial fill upon patient request if the pr... Start Date: 01/26/22 Status: Ordered Eucerin Eczema Relief topical cream 1 application, Topically, 2 times a day, # 240 Gm, 5 Refills, Maintenance, 01/15/21 16:05:00 EDT, [facility] #[id number], Partial fill upon patient request if the prescription is for a schedule II opioid drug., 1 application Topically 2 times a d... Start Date: 01/15/21 Status: Ordered gabapentin 100 mg oral capsule 100 mg, 1, capsule, By Mouth, 2 times a day, # 60 capsule, Refills 2, Tot. Refills 2, Maintenance, 05/11/23 14:31:00 EST, Route to Pharmacy Electronically, [facility] #[id number], Partial fill upon patient request if the prescription is for a genna... Start Date: 05/11/23 Status: Ordered guaiFENesin 400 mg oral tablet 1 tablet = 400 mg, By Mouth, Every 4 hours, PRN as needed for congestion and cough, # 30 tablet, 1 Refills, Maintenance, 08/27/21 13:40:00 EDT, Tablet, [facility] #[id number], Partial fill upon patient request if the [...] 2 Refills, Maintenance, 08/17/21 13:14:00 EDT, Syrup, [facility] #[id number], 15 mL By Mouth Daily,PRN:as needed for [...] tablet, 5 Refills, Maintenance, 11/16/22 8:09:00 EDT, [facility] #[id number], Partial fill upon patient request if the prescription is for a schedule II opioid drug., 164, cm, 10/25/22 13:5... Start Date: 11/16/22 Stop Date: 05/15/23 Status: Ordered levothyroxine 75 mcg (0.075 mg) oral tablet 1 tablet = 75 mcg, By Mouth, Daily, TK 1 T PO D, # 90 tablet, 1 Refills, Maintenance, 03/23/23 8:46:00 EST, Tablet, [facility] #[id number], Partial fill upon patient request if the prescription is for a schedule II opioid drug., 164, cm, 2... Start Date: 03/23/23 Status: Ordered lidocaine 4% mucous membrane solution 1 application, Topically, 2 times a day, PRN Pain , Mild, # 1 each, 0 Refills, Maintenance, 05/22/20 16:43:00 EST, [facility] #[id number], Partial fill upon patient request if the prescription is for a schedule II opioid drug., 1 application Topi... Start Date: 05/22/20 Status: Ordered midodrine 5 mg oral tablet 1, tablet, By Mouth, 3 times a day, # 90 tablet, Refills 3, Tot. 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 Pain of right sacroiliac joint Confirmed Active Seizures Confirmed Active Lewy body dementia Confirmed Active Tinea cruris Confirmed Active Unintentional weight loss Confirmed Active Urinary incontinence Confirmed Active Vitamin D deficiency Confirmed Active Social History Social History Type Response Smoking Status Former smoker entered on: 08/26/15 Sex Patient Care team information Care Team Personnel Name: Adela Vu RN Position: [facility] RN Member Role: Primary Care Nurse Name: Matilde Mahmood RN Position: [facility] RN Member Role: Primary Care Nurse Name: Roberta Felipe NP Position: [facility] PCO Associate Professional Member Role: PCP Address: Address: [address] [place] [address] Name: Maci Kruse RN Position: [facility] SN RN Member Role: Primary Care Nurse Name: Lidya Lyons RN Position: [facility] RN Member Role: Primary Care Nurse Name: Lyudmila Ortez RN Position: [facility] RN Member Role: Primary Care Nurse Name: Lilo Maldonado RN Position: [facility] RN Member Role: Primary Care Nurse Name: Anuj Murillo RN Position: [facility] RN Member Role: Primary Care Nurse Name: Jasmin Oliva Position: [facility] Outreach Member Role: Lifetime Consulting Physician Name: Suzanne Celeste RN Position: [facility] RN Member Role: Primary Care Nurse Name: Lily Solis RN Position: [facility] Onco RN Member Role: Primary Care Nurse Name: Nancy Morrow RN Position: [facility] RN Member Role: Primary Care Nurse Name: Etta Dewitt RN Position: [facility] RN Member Role: Primary Care Nurse Care Team Related Persons Name: JESSIKA HEARD Address: [address] [address] Name: JESSICA JOSUE Address: [address] [place] [address] Name: CARLOS CEJA Address: home [address] [place] [address]
--- OUTSIDE RECORDS SUMMARY | 2023-11-25 18:48 | XMS_ITS | Continuity of Care Document ---
Author Organization [facility] Address [address] [place] [address]- Care Team Providers Care Clinical Care Coordinator Name Role Phone Destinee JIMENEZ, Roberta Merida Primary Care Physician [phone] [facility] Date[facility]s): 07/05/23 - 10/05/[address] [address]- Attending Physician: Not on Staff, Attending MD Allergies, Adverse Reactions, Alerts Substance Reaction Severity Status penicillin rash Active Immunizations Given and Recorded Vaccine Date Status Refusal Reason [id number] 12y+ bivalent booster vax 03/05/22 Given influenza [...] inactivated 1 05/31/12 Gi davonte SARS-CoV-2 mRNA (qsomjfp-tpux-suzef) vax 06/19/21 Given SARS-CoV-2 (COVID-19) mRNA BNT-162b2 vac 05/17/20 Given SARS-CoV-2 (COVID-19) mRNA BNT-162b2 vac 2 04/26/20 Given pneumococcal 13-valent vaccine 08/31/16 Given pneumococcal 23-valent vaccine 3 05/31/12 Given tetanus/diphtheria/pertussis, acel(Tdap) 4 05/31/12 Given 1Admin Note: VIS dated 09/13/11 2Result Comment: Administered by Dalia Olguin WELDER FITTER HELPER 3Admin Note: VIS dated 12/17/08 4Admin Note: VIS dated 04/03/11 Medications Artificial Tears preserved solution 1 drops, Eyes, Both, 4 times a day, PRN Dry Eyes, # 10 mL, 11 Refills, Maintenance, 01/26/22 14:13:00 EST, Ophth Solution, [facility] #[id number], Partial fill upon patient request if the [...] tablet, 5 Refills, Maintenance, 08/26/22 16:55:00 EDT, [facility] #[id number], Please print in kiswahili, 160, cm, 06/18/22 14:50:00 EDT, Height Start [...] Gm, 1 Refills, Maintenance, 06/18/2314:05:00 EDT, Cream, [facility] #[id number], Partial fill upon patient request if the prescription is for a schedule II opioid drug., 1 applicatio... Start Date: 06/18/22 Status: Ordered docusate sodium 100 mg oral capsule 100 mg, 1, capsule, By Mouth, 2 times a day, PRN, # 60 capsule, Refills 3, Tot. Refills 3, Maintenance, for constipation, 01/26/22 14:13:00 EST, Route to Pharmacy Electronically, [facility][id number], Partial fill upon patient request if the pr... Start Date: 01/26/22 Status: Ordered Eucerin Eczema Relief topical cream 1 application, Topically, 2 times a day, # 240 Gm, 5 Refills, Maintenance, 01/15/21 16:05:00 EDT, [facility] #[id number], Partial fill upon patient request if the prescription is for a schedule II opioid drug., 1 application Topically 2 times a d... Start Date: 01/15/21 Status: Ordered gabapentin 100 mg oral capsule 100 mg, 1, capsule, By Mouth, 2 times a day, # 60 capsule, Refills 2, Tot. Refills 2, Maintenance, 05/11/23 14:31:00 EST, Route to Pharmacy Electronically, [facility] #[id number], Partial fill upon patient request if the prescription is for a genna... Start Date: 05/11/23 Status: Ordered guaiFENesin 400 mg oral tablet 1 tablet = 400 mg, By Mouth, Every 4 hours, PRN as needed for congestion and cough, # 30 tablet, 1 Refills, Maintenance, 08/27/21 13:40:00 EDT, Tablet, [facility] #[id number], Partial fill upon patient request if the [...] 2 Refills, Maintenance, 08/17/21 13:14:00 EDT, Syrup, [facility] #[id number], 15 mL By Mouth Daily,PRN:as needed for [...] 5 Refills, Maintenance, 11/16/22 8:09:00 EDT, Tablet, [facility] #[id number], Partial fill upon patient request if the prescription is for a schedule II opioid drug., 164, cm, 10/25/22 13:5... Start Date: 11/16/22 Stop Date: 05/15/23 Status: Ordered levothyroxine 75 mcg (0.075 mg) oral tablet 1 tablet = 75 mcg, By Mouth, Daily, TK 1 T PO D, # 90 tablet, 1 Refills, Maintenance, 03/23/23 8:46:00 EST, Tablet, [facility] #[id number], Partial fill upon patient request if the prescription is for a schedule II opioid drug., 164, cm, ... Start Date: 03/23/23 Status: Ordered lidocaine 4% mucous membrane solution 1 application, Topically, 2 times a day, PRN Pain , Mild, # 1 each, 0 Refills, Maintenance, 05/22/20 16:43:00 EST, [facility] #[id number], Partial fill upon patient request if the prescription is for a schedule II opioid drug., 1 application Topi... Start Date: 05/22/20 Status: Ordered midodrine 5 mg oral tablet 1, tablet, By Mouth, 3 times a day, # 90 tablet, Refills 3, Tot. Refills 3, Maintenance, 10/27/21 15:24:00 EDT, Route to Pharmacy Electronically, [facility] #[id number], 160, cm, 08/27/21 13:11:00 EDT, Height, 57.86, [...] capsule, 1 Refills, Maintenance, 04/20/23 19:37:00 EST, [facility] #[id number], 164, cm, 12/27/22 17:03:00 EDT, Height Start [...] 03/23/23 8:47:00 EST, Route to Pharmacy Electronically, [facility] #[id number], 164, cm, 12/27/22 17:03:00 EDT, Height Start Date: 03/23/23 Status: Ordered Twin size hospital bed mattress Twin size [facility] bed mattress, See Instructions, # 1 [...] Pre-syncope Confirmed Active Orthostatic hypotension Confirmed Active *[id number] Concrete Saw Operator Yi Campos Confirmed Active Pain of [...] Team Personnel Name: Adela Vu RN Position: [facility] RN Member Role: Primary Care Nurse Name: Matilde Mahmood RN Position: [facility] RN Member Role: Primary Care Nurse Name: Roberta Felipe NP Position: [facility] PCO Associate Professional Member Role: PCP Address: Address: [address] [place] [address] Name: Maci Kruse RN Position: [facility] SN RN Member Role: Primary Care Nurse Name: Lidya Lyons RN Position: [facility] RN Member Role: Primary Care Nurse Name: Lyudmila Ortez RN Position: [facility] RN Member Role: Primary Care Nurse Name: Lilo Maldonado RN Position: [facility] RN Member Role: Primary Care Nurse Name: Anuj Murillo RN Position: [facility] RN Member Role: Primary Care Nurse Name: Jasmin Oliva Position: [facility] Outreach Member Role: Lifetime Consulting Physician Name: Suzanne Celeste RN Position: [facility] RN Member Role: Primary Care Nurse Name: Lily Solis RN Position: [facility] Onco RN Member Role: Primary Care Nurse Name: Nancy Morrow RN Position: [facility] RN Member Role: Primary Care Nurse Name: Etta Dewitt RN Position: [facility] RN Member Role: Primary Care Nurse Care Team Related Persons Name: JESSIKA HEARD Address: [address] [address] Name: JESSICA JOSUE Address: home [address] [place] [address] Name: CARLOS CEJA Address: [address] [address]
--- NOTE | 2023-11-25 20:14 | ECG_ITS ---
Test Reason : AMS Blood Pressure : / mmHG Vent. Rate : 078 BPM Atrial Rate : 078 BPM P-R Int : 144 ms QRS Dur : 066 ms QT Int : 402 ms P-R-T Axes : 067 029 060 degrees QTc Int : 458 ms Normal sinus rhythm Low voltage QRS Borderline ECG When compared with ECG of 03-AUG-2023 17:41, Premature atrial complexes are no longer Present Referred By: Generic ED Physician Electronically Signed By:EMMY VIDALES
[2023-11-25 20:58] LABS: Anion Gap 14 (12-20); Blood Urea Nitrogen 38 mg/dL (9-16); Calcium 7.8 mg/dL (8.4-10.2); Carbon Dioxide 26 mmol/L (22-29); Chloride 105 mmol/L (96-108); Creatinine Clr Calc Pharmacy 21.8; Estimated Glomerular Filt Rate 44; Glucose Random 114 mg/dL (60-115); Potassium 4.9 mmol/L (3.3-5.1); Sodium 140 mmol/L (135-145)
[2023-11-25 21:06] LABS: B Type Natriuretic Peptide 196 pg/mL (<100)
[2023-11-25 21:07] LABS: Troponin-I High Sensitivity 55.9 ng/L (<3.5-35.0)
--- NOTE | 2023-11-25 21:19 | ED.GENADULT ---
HPI - General Adult General Chief complaint: General Medical Stated complaint: Bilateral foot swelling, ulcers lower back and hip Time Seen by Provider: 11/25/23 21:02 Source: patient Mode of arrival: ambulatory Limitations: no limitations History of Present Illness ED Provider: Dr. Melissa Brown HPI narrative: Patient comes to the emergency room via ambulance from home. Patient lives at home with his family, patient nonverbal at baseline. According to the patient's family, for the last 9 days, patient has had increased swelling in lower extremities. Started in the left foot and calf, today started on the right side. Patient is nonverbal and can not make his needs known. According to the patient's family, patient has previously been on blood thinners. Per family patient used to take Eliquis but no longer the case. Patient's family states that usually he is more awake, alert, keeps his eyes open. For the last couple of days, patient has been with his eyes closed the whole time. Related Data Home Medications ?Medication ?Instructions ?Recorded ?Confirmed levothyroxine 75 mcg tablet 1 tab PO DAILY 09/21/20 10/14/20 midodrine 5 mg tablet 1 tab PO TID 09/21/20 10/14/20 omeprazole 40 mg capsule,delayed 1 cap PO DAILY 09/21/20 10/14/20 release trazodone 50 mg tablet 2 tab PO BEDTIME 09/21/20 10/14/20 apixaban 2.5 mg tablet (Eliquis) 1 tab PO BID 10/14/20 10/14/20 levetiracetam 750 mg tablet 1 tab PO BID 10/14/20 10/14/20 Allergies Allergy/AdvReac Type Severity Reaction Status Date / Time Penicillins [PENICILLINS] Allergy Unknown UNKNOWN Verified 11/25/23 18:01 Review of Systems Review of Systems: Yes Unobtainable due to mental condition [facility] Past Medical History Medical History Microscopic hematuria Acute blood loss anemia Orthostatic hypotension Dementia Kidney disease Hypothyroid Chronic GERD Afib Anemia Acute GI bleeding Social History Social History Household Members: Family and Children Housing: House Unable to assess alcohol history related to: Unable to respond Alcohol intake: never Patient Tobacco Use Status: Tobacco use Unknown Smoked in Last 30 Days: No Advance Directives: Yes Advance Directives on File: Yes Advance Directives Date on File: 09/22/20 service: No Physical Exam ED Vital Signs: Vital Signs - 24 hr 11/25/23 17:57 11/25/23 18:24 11/25/23 21:25 Temperature 97.8 F 97.9 F Pulse Rate 98 96 Respiratory Rate 18 16 Blood Pressure 112/63 114/56 L Pulse Oximetry 99 96 Oxygen Delivery Method Room Air Room Air BMI result Body Mass Index 16.4 Const Other: Appearance: Somnolent, opens eyes, falls back asleep Eyes: Pupils equal, round and reactive to light. ENT: Pharynx normal. Neck: Normal inspection. Neck supple. No lymph nodes noted. No crepitus CVS: Normal heart rate and rhythm. Pulses normal. Normal S1 and S2 Respiratory: No respiratory distress. Breath sounds normal. No Wheezing. No rales Abdomen: Soft and nontender. No rigidity. No distention. Skin: Skin warm and dry. Patient has skin ulcers, see below. 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 Neuro: Oriented X 3. No motor deficit. No sensory deficit. Moving all extremities. No slurred speech. CN 2 through 12 grossly intact Psych: calm, cooperative, normal affect Course Course Course Narrative: -all of patient's labs pending Medical Decision Making Medical Decision Making MDM Narrative: -patient's hematology shows a hemoglobin of 6.2 and hematocrit of 20, chemistry at baseline, creatinine 1.51. Patient's troponin is a bit more elevated than usual, today 59.9, we will repeat in 3 hours. BNP 196. -I discussed with the patient's niece who is the patient's healthcare proxy that the patient needs blood. Healthcare proxy had to be reached over the phone, who gave verbal consent to go ahead with a blood transfusion. I confirmed with the family his code status, patient is DNR DNI -urinalysis positive for UTI, patient being giving ceftriaxone IV. Lactic acid and blood cultures pending. At this time 23:27, sepsis is not suspected. Occult blood negative -per mathematical technician, due to patient's chronic contractures, the study was very limited. So far it seems that patient did not have any DVTs. -reviewing patient's venous duplex ultrasound from 2020, they had the same issue/limitation due to patient's chronic contractures. -troponin 1 was a bit elevated, 2. Similar to the 1st 1, flat My interpretation of EKG: Normal sinus rhythm, heart rate 69, no ST segment depression or elevation, no T-wave inversion, QTC 435 -I discussed the patient with Dr. Haley from the Medicine team, patient being admitted. Differential Diagnosis Differential Diagnoses: The differential diagnosis associated with the presentation includes (Anemia, DVT, venous insufficiency, deconditioning, hypo-oncotic pressure) Admission/Observation Consideration of admission/observation: Escalation of care including admission/observation considered Lab Data MDM Lab Attestation statement: I reviewed the patient's lab results. 11/25/23 21:18 11/25/23 20:38 Labs: Lab Results 11/25/23 11/25/23 11/25/23 Range/Units 18:00 20:38 21:18 WBC 16.9 H (4.8-10.8) X10*3/uL RBC 2.53 L (4.60-5.80) X10*6/uL Hgb 6.2 L* D (14.0-18.0) g/dl Hct 20.0 L* D (42.0-52.0) % MCV 79.1 L (80.0-98.0) fL MCH 24.5 L (27.0-33.0) pg MCHC 31.0 (31.0-36.0) g/dl RDW 19.7 H (11.0-16.0) % Plt Count 266 D (160-400) X10*3/uL MPV 11.8 (9.4-12.4) fL Immature Gran % (Auto) 0.9 H (0.0-0.4) % Neut % (Auto) 82.5 H (45-73) % Lymph % (Auto) 10.7 L (20-40) % [place] % (Auto) 5.6 (2-11) % Eos % (Auto) 0.1 (0-4) % Baso % (Auto) 0.2 (0-2) % Lymph # (Auto) 1.8 (1.2-4.9) X10*3/uL [place] # (Auto) 1.0 (0.1-1.2) X10*3/uL Eos # (Auto) 0.0 (0.0-0.4) X10*3/uL Baso # (Auto) 0.0 (0.0-0.2) X10*3/uL Abs Immat Gran (auto) 0.15 H (0.00-0.03) X10*3/uL Absolute Neuts (auto) 14.0 H (2.0-8.3) x10*3/uL Absolute Nucleated RBC 0.040 H (0.0-0.012) X10*3/uL Nucleated RBC % (auto) 0.2 (0.0-0.2) /100WBC Sodium 140 (135-145) mmol/L Potassium 4.9 (3.3-5.1) mmol/L Chloride 105 (96-108) mmol/L Carbon Dioxide 26 (22-29) mmol/L Anion Gap 14 (12-20) BUN 38 H (9-16) mg/dL Creatinine 1.51 H (0.5-1.4) mg/dL Estim Creat Clear Calc 21.8 Estimated GFR 44 POC Glucose 121 H (60-115) mg/dL Random Glucose 114 (60-115) mg/dL Calcium 7.8 L D (8.4-10.2) mg/dL Troponin I High Sens 55.9 H D (<3.5-35.0) ng/L B-Natriuretic Peptide 196 H (<100) pg/mL Albumin 2.0 L (3.5-5.0) g/dL Urine Color Urine Appearance Urine pH (5.0-9.0) Ur Specific [place] (1.005-1.025) Urine Protein (Neg-Trace) mg/dL Urine Glucose (UA) (Negative) mg/dL Urine Ketones (Negative) mg/dL Urine Blood (Negative) Urine Nitrite (Negative) Ur Leukocyte Esterase (Negative) Urine RBC (0-2) /HPF Urine WBC (0-5) /HPF Ur Squamous Epith Cells (0-2) /HPF Urine Bacteria (None Seen) Hyaline Casts (0-2) /LPF Stool Occult Blood (NEGATIVE) Blood Type Antibody Screen Crossmatch 11/25/23 11/25/23 Range/Units 22:04 22:38 WBC (4.8-10.8) X10*3/uL RBC (4.60-5.80) X10*6/uL Hgb (14.0-18.0) g/dl Hct (42.0-52.0) % MCV (80.0-98.0) fL MCH (27.0-33.0) pg MCHC (31.0-36.0) g/dl RDW (11.0-16.0) % Plt Count (160-400) X10*3/uL MPV (9.4-12.4) fL Immature Gran % (Auto) (0.0-0.4) % Neut % (Auto) (45-73) % Lymph % (Auto) (20-40) % [place] % (Auto) (2-11) % Eos % (Auto) (0-4) % Baso % (Auto) (0-2) % Lymph # (Auto) (1.2-4.9) X10*3/uL [place] # (Auto) (0.1-1.2) X10*3/uL Eos # (Auto) (0.0-0.4) X10*3/uL Baso # (Auto) (0.0-0.2) X10*3/uL Abs Immat Gran (auto) (0.00-0.03) X10*3/uL Absolute Neuts (auto) (2.0-8.3) x10*3/uL Absolute Nucleated RBC (0.0-0.012) X10*3/uL Nucleated RBC % (auto) (0.0-0.2) /100WBC Sodium (135-145) mmol/L Potassium (3.3-5.1) mmol/L Chloride (96-108) mmol/L Carbon Dioxide (22-29) mmol/L Anion Gap (12-20) BUN (9-16) mg/dL Creatinine (0.5-1.4) mg/dL Estim Creat Clear Calc Estimated GFR POC Glucose (60-115) mg/dL Random Glucose (60-115) mg/dL Calcium (8.4-10.2) mg/dL Troponin I High Sens 57.0 H (<3.5-35.0) ng/L B-Natriuretic Peptide (<100) pg/mL Albumin (3.5-5.0) g/dL Urine Color Yellow Urine Appearance Cloudy Urine pH 5.5 (5.0-9.0) Ur Specific [place] 1.025 (1.005-1.025) Urine Protein 30 (1+) H (Neg-Trace) mg/dL Urine Glucose (UA) Negative (Negative) mg/dL Urine Ketones Trace (Negative) mg/dL Urine Blood Negative (Negative) Urine Nitrite Positive H (Negative) Ur Leukocyte Esterase Moderate (2+) H (Negative) Urine RBC 0-2 (0-2) /HPF Urine WBC >50 H (0-5) /HPF Ur Squamous Epith Cells 6-10 (0-2) /HPF Urine Bacteria 4+ (None Seen) Hyaline Casts 3-5 (0-2) /LPF Stool Occult Blood NEGATIVE (NEGATIVE) Blood Type O Positive Antibody Screen NEGATIVE Crossmatch See Detail Critical Care Time Critical Care Time Critical Care Time: Yes Total Critical Care Time: 60 Attestation: I have personally provided critical care time. Time includes review of lab data, radiology results, discussion with consultants, and monitoring for potential decompensation. Intervention performed as documented. Discharge Plan Discharge Clinical Impression: Acute UTI, Anemia, Bilateral edema of lower extremity Patient Disposition: Admitted As Inpatient Print Language: Greek
[2023-11-25 21:23] LABS: MANUAL DIFF FLAG NO
[2023-11-25 21:25] VITALS: BP 114/56; PULSE 96; RESP 16; TEMP 36.6; O2SAT 96
[2023-11-25 21:25] LABS: Basophils Percent Auto 0.2 % (0-2); Eosinophils Percent Auto 0.1 % (0-4); Imm Gran Abs Auto 0.15 X10*3/uL (0.00-0.03); Imm Gran Pct Auto 0.9 % (0.0-0.4); Lymphocytes Absolute Auto 1.8 X10*3/uL (1.2-4.9); Lymphocytes Percent Auto 10.7 % (20-40); Mean Corpuscular Hemoglobin 24.5 pg (27.0-33.0); Mean Corpuscular Volume 79.1 fL (80.0-98.0); Mean Platelet Volume 11.8 fL (9.4-12.4); Monocytes Percent Auto 5.6 % (2-11); NRBC Pct Auto 0.2 /100WBC (0.0-0.2); Neutrophils Percent Auto 82.5 % (45-73); Platelet Count 266 X10*3/uL (160-400); Red Blood Count 2.53 X10*6/uL (4.60-5.80); Red Cell Distribution Width 19.7 % (11.0-16.0); White Blood Count 16.9 X10*3/uL (4.8-10.8)
[2023-11-25 21:38] LABS: Hemoglobin 6.2 g/dl (14.0-18.0)
[2023-11-25 22:10] LABS: OBS Int Ctl Valid YES; OBS1 NEGATIVE (NEGATIVE)
[2023-11-25 22:12] LABS: Appearance Urine Cloudy; Color Urine Yellow; Glucose Urine UA Negative (Negative); Leukocyte Esterase Urine Moderate (2+) (Negative); Nitrite Urine Positive (Negative); PH 5.5 (5.0-9.0); Specific Gravity - Urine 1.025 (1.005-1.025); UMIC TRIGGER UACC YES; Urine Blood Negative (Negative); Urine Ketones Trace mg/dL (Negative); Urine Protein 30 (1+) mg/dL (Neg-Trace)
[2023-11-25 22:16] LABS: Bacteria Urine 4+ (None Seen); RBC Urine 0-2 /HPF (0-2); UACC Culture Trigger YES; WBC Urine >50 /HPF (0-5)
--- NOTE | 2023-11-25 22:22 | PC.NURSE ---
3x attempt for iv/type&screen draw. machine cage maker attempt. unable to. MD aware.
[2023-11-25 23:46] VITALS: BP 94/49; PULSE 77; RESP 12; TEMP 35.9
[2023-11-26] VITALS (11 sets, daily range): BP systolic 104–144; BP diastolic 55–82; PULSE 64–81; RESP 12–20; TEMP 35.4–36.3; O2SAT 98–100
--- NOTE | 2023-11-26 00:03 | PC.NURSE ---
Addendum entered by Wiley Mcclelland 11/26/23 00:05: warm blankets placed on pt per md. rectal probe inserted to monitor temp. Original Note: pt difficult stick. multiple attempts to obtain blood cultures. now sent to lab. rbc started md aware of temp no reactions noted at 15 min.
[2023-11-26] MEDS: cefTRIAXone sodium 1 GM in 0.9 % Sodium Chloride 50 ML IV ×2 (00:06→21:53)
[2023-11-26 00:29] LABS: Troponin-I High Sensitivity 45.2 ng/L (<3.5-35.0)
--- NOTE | 2023-11-26 01:14 | P.HPHOSP_ITS ---
History of Present Illness Date of Service: 11/26/23 Attending physician on admission: Win Trivedi Chief Complaint: Increasing swelling RORY Cohen is 83 years old man with past medical history significant for advanced dementia, limited communication, chronic multiple decubitus ulcers, GERD, hypothyroidism, orthostatic hypotension, anemia requiring blood transfusions, atrial fibrillation (apparently not on Eliquis anymore due to GI bleeding) was brought to the emergency department via EMS after he was noted by his family to have worsening swelling to both lower extremities. He was recently hospitalized (September 2023) due to GI bleeding requiring PRBC transfusions. At that time he was evaluated by GI service. He had an EGD on September 22 that showed tortuous esophagus, mild gastric erythema, benign polyp (distal GEJ). He received treatment with enema for disimpaction. He was found to have normal vitamin B12 level. Colonoscopy was not performed given his advanced dementia and inability to tolerate bowel preparation. He was treated for UTI (Klebsiella pneumonia). In the ED, he was found to have temperature of 96.6. There is no significant hypotension and tachycardia. O2 sats are normal on room air. Blood workup was remarkable for hemoglobin of 6.2 and hematocrit of 20.0 (8.3 and 27.13 Jul 2023). There is leukocytosis of 16.9. There is no lactic acidosis. Platelets are normal. Creatinine is at baseline, 1.51 and BUN is 38. Troponin is 55.9 --> 57.0--> 45.2. There are no significant electrolyte imbalances. Urinalysis consistent with UTI. Bilateral venous ultrasound showed significantly limited exam, no evidence of DVT. ECG showed normal sinus rhythm, heart rate 69 beats per minute. ED tx: Ceftriaxone 1 g IV, NS 100 mL/hour Review of Systems 2 Review of Systems: Yes Unobtainable due to mental status [facility] Medical History Microscopic hematuria Acute blood loss anemia Orthostatic hypotension Dementia Kidney disease Hypothyroid Chronic GERD Afib Anemia Acute GI bleeding Social History Household Members: Family and Children Housing: House Unable to assess alcohol history related to: Unable to respond Alcohol intake: never Patient Tobacco Use Status: Tobacco use Unknown Smoked in Last 30 Days: No Advance Directives: Yes Advance Directives on File: Yes Advance Directives Date on File: 09/22/20 service: No Meds Allergies Allergy/AdvReac Type Severity Reaction Status Date / Time Penicillins [PENICILLINS] Allergy Unknown UNKNOWN Verified 11/25/23 18:01 Active Medications: Current Medications Acetaminophen (Acetaminophen 325 Mg Tablet) 975 mg PO Q6H PRN PRN Reason: Pain, Mild (Pain Scale 1-3), fever or headache Magnesium Hydroxide (Milk Of Magnesia 30 Ml Oral.Susp) 30 ml PO DAILY PRN PRN Reason: Constipation Sodium Chloride (0.9 % Sodium Chloride Flush 3 Ml Syringe) 3 ml IVFLUSH QSHIFT [facility] Home Medications ?Medication ?Instructions ?Recorded ?Confirmed ?Last Taken ?Type levothyroxine 75 mcg tablet 1 tab PO DAILY 09/21/20 10/14/20 09/21/20 History midodrine 5 mg tablet 1 tab PO TID 09/21/20 10/14/20 09/21/20 History omeprazole 40 mg capsule,delayed 1 cap PO DAILY 09/21/20 10/14/20 09/21/20 History release trazodone 50 mg tablet 2 tab PO BEDTIME 09/21/20 10/14/20 Unknown History apixaban 2.5 mg tablet (Eliquis) 1 tab PO BID 10/14/20 10/14/20 Unknown History levetiracetam 750 mg tablet 1 tab PO BID 10/14/20 10/14/20 Unknown History Physical Exam 2 Vital Signs and Narrative: Vital Signs: Last Vital Signs Temp 96.6 F L 11/26/23 00:02 Pulse 77 11/26/23 00:02 Resp 13 11/26/23 00:02 BP 122/58 L 11/26/23 00:02 Pulse Ox 96 11/25/23 21:25 O2 Del Method Room Air 11/25/23 21:25 BMI result Body Mass Index 16.4 Constitutional - Sleeping. No distress. No communicative. HEENT - PERRL, EOMI. Dry oral mucosa. Heart - S1S2, RRR. Lungs - Normal lung expansion, Normal respiratory effort, No respiratory distress, CTA bilaterally Abdomen - NT / ND; +BS; No rebound or guarding Extremities - no calf tenderness bilaterally, no swelling Musculoskeletal - All extremities are contracted. Skin - Warm/Dry. Multiple decubitus ulcers: No evidence of infection. Neurological - Sleeping comfortably. Results Labs 11/25/23 21:18 11/25/23 20:38 Labs: Laboratory Results - last 24 hr 11/25/23 11/25/23 11/25/23 18:00 20:38 21:18 MCV 79.1 L MCH 24.5 L MCHC 31.0 RDW 19.7 H Plt Count 266 D MPV 11.8 Immature Gran % (Auto) 0.9 H Neut % (Auto) 82.5 H Lymph % (Auto) 10.7 L [place] % (Auto) 5.6 Eos % (Auto) 0.1 Baso % (Auto) 0.2 Lymph # (Auto) 1.8 [place] # (Auto) 1.0 Eos # (Auto) 0.0 Baso # (Auto) 0.0 Abs Immat Gran (auto) 0.15 H Absolute Neuts (auto) 14.0 H Absolute Nucleated RBC 0.040 H Nucleated RBC % (auto) 0.2 Anion Gap 14 Estim Creat Clear Calc 21.8 Estimated GFR 44 POC Glucose 121 H Random Glucose 114 Lactic Acid Calcium 7.8 L D Troponin I High Sens 55.9 H D B-Natriuretic Peptide 196 H Albumin 2.0 L Urine Color Urine Appearance Urine pH Ur Specific [place] Urine Protein Urine Glucose (UA) Urine Ketones Urine Blood Urine Nitrite Ur Leukocyte Esterase Urine RBC Urine WBC Ur Squamous Epith Cells Urine Bacteria Hyaline Casts Stool Occult Blood Blood Type Antibody Screen Crossmatch 11/25/23 11/25/23 11/26/23 22:04 22:38 00:01 MCV MCH MCHC RDW Plt Count MPV Immature Gran % (Auto) Neut % (Auto) Lymph % (Auto) [place] % (Auto) Eos % (Auto) Baso % (Auto) Lymph # (Auto) [place] # (Auto) Eos # (Auto) Baso # (Auto) Abs Immat Gran (auto) Absolute Neuts (auto) Absolute Nucleated RBC Nucleated RBC % (auto) Anion Gap Estim Creat Clear Calc Estimated GFR POC Glucose Random Glucose Lactic Acid 2.0 Calcium Troponin I High Sens 57.0 H 45.2 H B-Natriuretic Peptide Albumin Urine Color Yellow Urine Appearance Cloudy Urine pH 5.5 Ur Specific [place] 1.025 Urine Protein 30 (1+) H Urine Glucose (UA) Negative Urine Ketones Trace Urine Blood Negative Urine Nitrite Positive H Ur Leukocyte Esterase Moderate (2+) H Urine RBC 0-2 Urine WBC >50 H Ur Squamous Epith Cells 6-10 Urine Bacteria 4+ Hyaline Casts 3-5 Stool Occult Blood NEGATIVE Blood Type O Positive Antibody Screen NEGATIVE Crossmatch See Detail Imaging Radiologist's Impressions: Impressions Venous Duplex 11/25/23 22:55 IMPRESSION: Significantly limited exam as described above. No evidence of deep vein thrombosis within the imaged bilateral lower extremities, though several veins are not able to be adequately evaluated especially in the left lower extremity. Electronically signed by: Chester Rodriguez MD 11/26/2023 12:34 AM EDT RP Assessment and Plan (1) Bilateral edema of lower extremity: Status: Acute (2) Symptomatic anemia: Status: Acute (3) Acute UTI: Status: Acute Plan Isra Cohen is 83 y/o man admitted with: * Symptomatic anemia, source unclear. Likely GI. Admit to hospitalist service. Keep NPO. Start Protonix 80 mg IV x1 then 40 mg IV twice daily. GI consult for further recommendations. Continue PRBC transfusion to keep hemoglobin above 7. Avoid blood thinners. * Urinary tract infection. History of Klebsiella pneumonia infection susceptible to ceftriaxone. Continue ceftriaxone. Urine culture obtained - will follow results. * Bilateral lower extremity edema secondary to hypoalbuminemia. Continue PRBCs transfusion. * Atrial fibrillation, currently rate and rhythm controlled. * Hypothyroidism. Check TSH. Continue levothyroxine. * History orthostatic hypotension. Continue midodrine. * Seizure disorder. Continue levetiracetam. * Advanced dementia. * Multiple chronic decubitus ulcers. Wound consult. DVT prophylaxis: Compression stocking if tolerated. Pharmacological therapy is contraindicated due to acute anemia. Code status: DNR/DNI Patient will need hospitalization for at least 2 midnights for symptomatic anemia treatment with RBC transfusion evaluation by subspecialty. Patient also will need IV antibiotic therapy for presumed urinary tract infection with history of Klebsiella pneumonia infection. Quality Stroke Does the patient have a stroke diagnosis?: No VTE Prior VTE?: No VTE Risk Level:: Medical - moderate - high VTE Device Contraindication: N/A - Device Ordered VTE Drug Contraindication: Treatment Not Indicated
[2023-11-26 02:08] LABS: Thyroid Stimulating Hormone 2.54 uIU/mL (0.32-4.0)
[2023-11-26] MEDS: Pantoprazole Sodium 40 MG/10 ML VIAL 80 MG IVPUSH (02:37)
[2023-11-26 07:57] LABS: Hematocrit 30.9 % (42.0-52.0); Hemoglobin 10.5 g/dl (14.0-18.0); Mean Corpuscular Hemoglobin 27.9 pg (27.0-33.0); Mean Platelet Volume 11.1 fL (9.4-12.4); NRBC Pct Auto 0.5 /100WBC (0.0-0.2); Platelet Count 227 X10*3/uL (160-400); Red Blood Count 3.77 X10*6/uL (4.60-5.80); Red Cell Distribution Width 18.7 % (11.0-16.0); White Blood Count 14.2 X10*3/uL (4.8-10.8)
[2023-11-26 08:03] LABS: Prothrombin Time 12.2 SEC (11.1-13.3)
[2023-11-26 08:18] LABS: Alanine Aminotransferase 16 U/L (0-40); Albumin Level 1.7 g/dL (3.5-5.0); Alkaline Phosphatase 120 U/L (39-117); Anion Gap 12 (12-20); Aspartate Amino Transferase 38 U/L (5-37); Bilirubin Total 0.3 mg/dL (0.0-1.0); Blood Urea Nitrogen 32 mg/dL (9-16); Calcium 7.8 mg/dL (8.4-10.2); Carbon Dioxide 22 mmol/L (22-29); Chloride 109 mmol/L (96-108); Estimated Glomerular Filt Rate > 60; Glucose Random 79 mg/dL (60-115); Potassium 5.1 mmol/L (3.3-5.1); Sodium 138 mmol/L (135-145); Total Protein 5.6 g/dL (6.5-8.0)
[2023-11-26] MEDS: 0.9 % Sodium Chloride Flush 3 ML SYRINGE IVFLUSH ×2 (08:36→21:57)
[2023-11-26] MEDS: levETIRAcetam 500 MG TABLET PO (09:36)
--- NOTE | 2023-11-26 11:10 | P.PNIM_ITS ---
Subjective Subjective Date of Service: 11/26/23 Interval History: Non-verbal, no acute distress Physical Exam 2 Vital Signs: Vital Signs: Last Vital Signs Temp 97.3 F 11/26/23 08:00 Pulse 73 11/26/23 08:00 Resp 16 11/26/23 08:00 BP 131/64 11/26/23 08:00 Pulse Ox 100 11/26/23 08:00 O2 Del Method Room Air 11/26/23 08:00 BMI result Body Mass Index 16.4 Const: Other: Appearance: Somnolent, opens eyes, falls back asleep CVS: Normal heart rate and rhythm. Pulses normal. Normal S1 and S2 Respiratory: No respiratory distress. Breath sounds normal. No Wheezing. No rales Abdomen: Soft and nontender. No rigidity. No distention. Skin: Skin warm and dry. Patient has skin ulcers, see below. 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 Non-verbal Psych:flat affect Objective Data Active Medications Acetaminophen (Acetaminophen 325 Mg Tablet) 975 mg PO Q6H PRN PRN Reason: Pain, Mild (Pain Scale 1-3), fever or headache Levetiracetam (Levetiracetam 500 Mg Tablet) 500 mg PO BID [facility] Last Admin: 11/26/23 09:36 Dose: 500 mg Documented By: MELISA Magnesium Hydroxide (Milk Of Magnesia 30 Ml Oral.Susp) 30 ml PO DAILY PRN PRN Reason: Constipation Pantoprazole Sodium (Pantoprazole Sodium 40 Mg/10 Ml Vial) 40 mg IVPUSH BID@0630,1630 [facility] Sodium Chloride (0.9 % Sodium Chloride Flush 3 Ml Syringe) 3 ml IVFLUSH QSHIFT [facility] Last Admin: 11/26/23 08:36 Dose: 3 ml Documented By: MELISA Labs 11/26/23 07:40 11/26/23 07:43 Labs: Laboratory Results - last 24 hr 11/25/23 11/25/23 11/25/23 18:00 20:38 21:18 MCV 79.1 L MCH 24.5 L MCHC 31.0 RDW 19.7 H Plt Count 266 D MPV 11.8 Immature Gran % (Auto) 0.9 H Neut % (Auto) 82.5 H Lymph % (Auto) 10.7 L [place] % (Auto) 5.6 Eos % (Auto) 0.1 Baso % (Auto) 0.2 Lymph # (Auto) 1.8 [place] # (Auto) 1.0 Eos # (Auto) 0.0 Baso # (Auto) 0.0 Abs Immat Gran (auto) 0.15 H Absolute Neuts (auto) 14.0 H Absolute Nucleated RBC 0.040 H Nucleated RBC % (auto) 0.2 PT INR Anion Gap 14 Estim Creat Clear Calc 21.8 Estimated GFR 44 POC Glucose 121 H Random Glucose 114 Lactic Acid Calcium 7.8 L D Total Bilirubin AST ALT Alkaline Phosphatase Troponin I High Sens 55.9 H D B-Natriuretic Peptide 196 H Total Protein Albumin 2.0 L TSH 2.54 Urine Color Urine Appearance Urine pH Ur Specific [place] Urine Protein Urine Glucose (UA) Urine Ketones Urine Blood Urine Nitrite Ur Leukocyte Esterase Urine RBC Urine WBC Ur Squamous Epith Cells Urine Bacteria Hyaline Casts Stool Occult Blood Blood Type Antibody Screen Crossmatch 11/25/23 11/25/23 11/26/23 22:04 22:38 00:01 MCV MCH MCHC RDW Plt Count MPV Immature Gran % (Auto) Neut % (Auto) Lymph % (Auto) [place] % (Auto) Eos % (Auto) Baso % (Auto) Lymph # (Auto) [place] # (Auto) Eos # (Auto) Baso # (Auto) Abs Immat Gran (auto) Absolute Neuts (auto) Absolute Nucleated RBC Nucleated RBC % (auto) PT INR Anion Gap Estim Creat Clear Calc Estimated GFR POC Glucose Random Glucose Lactic Acid 2.0 Calcium Total Bilirubin AST ALT Alkaline Phosphatase Troponin I High Sens 57.0 H 45.2 H B-Natriuretic Peptide Total Protein Albumin TSH Urine Color Yellow Urine Appearance Cloudy Urine pH 5.5 Ur Specific [place] 1.025 Urine Protein 30 (1+) H Urine Glucose (UA) Negative Urine Ketones Trace Urine Blood Negative Urine Nitrite Positive H Ur Leukocyte Esterase Moderate (2+) H Urine RBC 0-2 Urine WBC >50 H Ur Squamous Epith Cells 6-10 Urine Bacteria 4+ Hyaline Casts 3-5 Stool Occult Blood NEGATIVE Blood Type O Positive Antibody Screen NEGATIVE Crossmatch See Detail 11/26/23 11/26/23 11/26/23 07:40 07:43 07:50 MCV 82.0 MCH 27.9 MCHC 34.0 RDW 18.7 H Plt Count 227 MPV 11.1 Immature Gran % (Auto) Neut % (Auto) Lymph % (Auto) [place] % (Auto) Eos % (Auto) Baso % (Auto) Lymph # (Auto) [place] # (Auto) Eos # (Auto) Baso # (Auto) Abs Immat Gran (auto) Absolute Neuts (auto) Absolute Nucleated RBC 0.070 H Nucleated RBC % (auto) 0.5 H PT 12.2 INR 1.0 Anion Gap 12 Estim Creat Clear Calc 30.0 Estimated GFR > 60 POC Glucose Random Glucose 79 Lactic Acid Calcium 7.8 L Total Bilirubin 0.3 AST 38 H ALT 16 Alkaline Phosphatase 120 H Troponin I High Sens B-Natriuretic Peptide Total Protein 5.6 L Albumin 1.7 L TSH Urine Color Urine Appearance Urine pH Ur Specific [place] Urine Protein Urine Glucose (UA) Urine Ketones Urine Blood Urine Nitrite Ur Leukocyte Esterase Urine RBC Urine WBC Ur Squamous Epith Cells Urine Bacteria Hyaline Casts Stool Occult Blood Blood Type Antibody Screen Crossmatch Assessment and Plan (1) Symptomatic anemia: Status: Acute Plan 83/m with advance dementia, non verbal,bedbound,, chronic multiple decubitus ulcers, GERD, hypothyroidism, orthostatic hypotension, anemia requiring blood transfusions, atrial fibrillation (apparently not on Eliquis anymore due to GI bleeding) was brought to the emergency department via EMS after he was noted by his family to have worsening swelling to both lower extremities. * Symptomatic anemia, source unclear. Likely GI Keep NPO. Start Protonix 80 mg IV x1 then 40 mg IV twice daily. GI consult for further recommendations. Continue PRBC transfusion to keep hemoglobin above 7. Avoid blood thinners. * Urinary tract infection. History of Klebsiella pneumonia infection susceptible to ceftriaxone. Continue ceftriaxone. Follow culture * Bilateral lower extremity edema secondary to hypoalbuminemia. Continue PRBCs transfusion. * Atrial fibrillation, currently rate and rhythm controlled. * Hypothyroidism. nl TSH. Continue levothyroxine. * History orthostatic hypotension. Continue midodrine. * Seizure disorder. Continue levetiracetam. * Advanced dementia. * Multiple chronic decubitus ulcers. Wound care consult. * FEN: start IVF, speech consult DVT prophylaxis: Compression stocking if tolerated. Pharmacological therapy is contraindicated due to acute anemia. Code status: DNR/DNI need for inpt: management of above Quality Stroke Does the patient have a stroke diagnosis?: No VTE Prior VTE?: No VTE Risk Level:: Medical - moderate - high VTE Device Contraindication: N/A - Device Ordered VTE Drug Contraindication: Treatment Not Indicated
[2023-11-26] MEDS: Lactated Ringers 1,000 ML 125 ML IVCONT ×2 (11:39→19:10)
--- NOTE | 2023-11-26 11:51 | PHA.MEDREC ---
Addendum entered by Nadeen Donahue [facility] 11/26/23 12:11: MED REC REVIEWED BY [facility] Addendum entered by Nani Lamas 11/26/23 12:01: Hospitalist note says to continue midodrine. The family did not mention it and it's not in claim history. Bharat said it was filled last year in August for a 30 day supply. Let provider know. Original Note: Pharmacy Consult ? Medication Reconciliation Pharmacy has completed the medication reconciliation.Spoke with family over the phone (Kendra and Simba) with an enamel finisher. They both confirmed that he is on 2 seizure medications. Kendra confirmed the names and frequencies of all meds. Depakote (90 DS) and gabapentin (30 DS) were last picked up May 15 according to Bharat. Kendra says the gabapentin is prn for pain. She says he last had his medications yesterday AM.
--- NOTE | 2023-11-26 13:30 | PM.GICN ---
History of Present Illness Data of Consult Service Date: 11/26/23 Requesting physician: Win Trivedi Primary Care Provider: Unknown Physician HPI Reason for consult: Anemia This is an 83-year-old gentleman with past medical history dementia, decubitus ulcers, hypothyroidism, chronic anemia requiring blood transfusions, atrial fibrillation not on anticoagulation due to chronic bleeding, was brought to the hospital for worsening lower extremity swelling. Gastroenterology was consulted for question of anemia and GI bleeding. Patient seen at bedside. Limited history available as patient is largely nonverbal. On review of labs, His initial H&H was noted to be 6.2/20. He received 2 units of blood transfusion. However, unclear if this was a true decline in H&H, as repeat Hb is now 10.5/30.9. Patient also with mild elevation of AST and alk phos. Urinalysis with UTI. Stool occult blood was negative. Doppler scan was done which did not show any DVT within the imaged extremities. However, complete exam could not be performed due to patient's contractures and immobility. Review of Systems Review of Systems: Yes all other systems are reviewed and are negative [facility] Past Medical History Medical History Microscopic hematuria Acute blood loss anemia Orthostatic hypotension Dementia Kidney disease Hypothyroid Chronic GERD Afib Anemia Acute GI bleeding Social History Social History Household Members: Unknown / Unable to assess Housing: Unknown / Unable to assess Unable to assess alcohol history related to: Unable to respond Alcohol intake: never Patient Tobacco Use Status: Tobacco use Unknown Advance Directives Date on File: 09/22/20 service: No Meds Allergies Allergy/AdvReac Type Severity Reaction Status Date / Time Penicillins [PENICILLINS] Allergy Unknown UNKNOWN Verified 11/25/23 18:01 Active Medications: Current Medications Acetaminophen (Acetaminophen 325 Mg Tablet) 975 mg PO Q6H PRN PRN Reason: Pain, Mild (Pain Scale 1-3), fever or headache Lactated Ringer's (Lr) 1,000 mls @ 125 mls/hr IVCONT .Q8H [facility] Last Admin: 11/26/23 11:39 Dose: 125 mls/hr Levetiracetam (Levetiracetam 500 Mg Tablet) 500 mg PO BID [facility] Last Admin: 11/26/23 09:36 Dose: 500 mg Magnesium Hydroxide (Milk Of Magnesia 30 Ml Oral.Susp) 30 ml PO DAILY PRN PRN Reason: Constipation Pantoprazole Sodium (Pantoprazole Sodium 40 Mg/10 Ml Vial) 40 mg IVPUSH BID@0630,1630 [facility] Sodium Chloride (0.9 % Sodium Chloride Flush 3 Ml Syringe) 3 ml IVFLUSH QSHIFT [facility] Last Admin: 11/26/23 11:39 Dose: Not Given Home Medications ?Medication ?Instructions ?Recorded ?Confirmed ?Last Taken ?Type levothyroxine 75 mcg tablet 1 tab PO DAILY@59909/21/20 11/26/23 11/25/23 History omeprazole 40 mg capsule,delayed 1 cap PO DAILY@62909/21/20 11/26/23 11/25/23 History release trazodone 50 mg tablet 1 - 2 tab PO BEDTIME 09/21/20 11/26/23 Unknown History acetaminophen 325 mg capsule 650 mg PO DAILY PRN Pain 11/26/23 11/26/23 Unknown History calcium carbonate (Antacid 200 mg PO TID PRN indigestion 11/26/23 11/26/23 Unknown History (calcium carbonate)) divalproex 250 mg tablet,delayed 250 mg PO DAILY@89911/26/23 11/26/23 11/25/23 History release divalproex 250 mg tablet,delayed 500 mg PO BEDTIME 11/26/23 11/26/23 Unknown History release gabapentin 100 mg capsule 100 mg PO BID PRN Pain 11/26/23 11/26/23 Unknown History levetiracetam 500 mg tablet 500 mg PO BID 11/26/23 11/26/23 11/25/23 History Physical Exam Vital Signs: Vital Signs: Last Vital Signs Temp 97.3 F 11/26/23 08:00 Pulse 73 11/26/23 08:00 Resp 16 11/26/23 08:00 BP 131/64 11/26/23 08:00 Pulse Ox 100 11/26/23 08:00 O2 Del Method Room Air 11/26/23 08:00 BMI result Body Mass Index 16.4 Elderly male, sleeping contractures in upper and lower extremities significant bitemporal muscle wasting no overt resp distress no wincing to abd palpation Results Labs 11/26/23 07:40 11/26/23 07:43 Labs: Short CBC 11/25/23 11/26/23 Range/Units 21:18 07:40 WBC 16.9 H 14.2 H (4.8-10.8) X10*3/uL Hgb 6.2 L* D 10.5 L D (14.0-18.0) g/dl Hct 20.0 L* D 30.9 L D (42.0-52.0) % Plt Count 266 D 227 (160-400) X10*3/uL BMP 11/25/23 11/26/23 20:38 07:43 Sodium 140 138 Potassium 4.9 5.1 Chloride 105 109 H Carbon Dioxide 26 22 BUN 38 H 32 H Creatinine 1.51 H 1.10 Calcium 7.8 L D 7.8 L Liver Function 11/25/23 11/26/23 Range/Units 20:38 07:43 Total Bilirubin 0.3 (0.0-1.0) mg/dL AST 38 H (5-37) U/L ALT 16 (0-40) U/L Alkaline Phosphatase 120 H (39-117) U/L Albumin 2.0 L 1.7 L (3.5-5.0) g/dL Urine 11/25/23 Range/Units 22:04 Urine Color Yellow Urine Appearance Cloudy Urine pH 5.5 (5.0-9.0) Ur Specific [place] 1.025 (1.005-1.025) Urine Protein 30 (1+) H (Neg-Trace) mg/dL Urine Glucose (UA) Negative (Negative) mg/dL Microbiology Microbiology Results: Microbiology 11/25/23 22:19 Urine Catheterized - Miller Catheter Urine Culture - Preliminary Gram negative jane Assessment and Plan (1) Anemia: Status: Acute (2) Bilateral edema of lower extremity: Status: Acute Plan Degree of drop in hemoglobin is unclear, as outlined above. Recommend repeat H&H to help clarify this. Plan: -check H&H (ordered) -if unchanged, no GI workup warranted at this time specially in the context of negative hemoccult test -consider goals of care clarification with family as previously documented MOLST with do not hospitalize preference Thank you for allowing me to participate in his care. Please do not hesitate to reach out for any questions or concerns. Procedures Date of Service Date of Service: 11/26/23
[2023-11-26 14:17] LABS: Hematocrit 37.2 % (42.0-52.0); Hemoglobin 12.3 g/dl (14.0-18.0)
--- NOTE | 2023-11-26 14:32 | PC.NURSE ---
Family in to see pt, states he is a puree diet at home, thin liquids, Notified at this time.
[2023-11-26] MEDS: Pantoprazole Sodium 40 MG/10 ML VIAL IVPUSH (15:39)
[2023-11-26] MEDS: Acetaminophen 325 MG TABLET 975 MG PO (19:37)
[2023-11-27] MEDS: Lactated Ringers 1,000 ML 125 ML IVCONT ×3 (02:09→17:21)
[2023-11-27 03:00] VITALS: BP 148/84; PULSE 85; RESP 18; TEMP 36.2; O2SAT 94
[2023-11-27] MEDS: Pantoprazole Sodium 40 MG/10 ML VIAL IVPUSH ×2 (06:12→15:42)
[2023-11-27] MEDS: Levothyroxine Sodium 75 MCG TABLET PO (06:19)
[2023-11-27 07:40] VITALS: BP 143/77; PULSE 79; RESP 18; TEMP 36.9; O2SAT 99
[2023-11-27] MEDS: levETIRAcetam 500 MG TABLET PO (07:56)
[2023-11-27] MEDS: Divalproex Sodium Sprinkles 125 MG CAP.DR.SPR 250 MG PO (07:56)
[2023-11-27] MEDS: Acetaminophen 325 MG TABLET 975 MG PO (09:23)
--- NOTE | 2023-11-27 09:58 | P.PNIM_ITS ---
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 significant bitemporal muscle wasting no overt resp distress no wincing to abd palpation skin: multiple ulcers Objective Data Active Medications Acetaminophen (Acetaminophen 325 Mg Tablet) 975 mg PO Q6H PRN PRN Reason: Pain, Mild (Pain Scale 1-3), fever or headache Last Admin: 11/27/23 09:23 Dose: 975 mg Documented By: MELISA Divalproex Sodium (Divalproex Sodium Sprinkles 125 Mg Spr) 250 mg PO DAILY@0900 [facility] Last Admin: 11/27/23 07:56 Dose: 250 mg Documented By: MELISA Divalproex Sodium (Divalproex Sodium Sprinkles 125 Mg ) 500 mg PO BEDTIME [facility] Lactated Ringer's (Lr) 1,000 mls @ 125 mls/hr IVCONT .Q8H [facility] Last Admin: 11/27/23 09:23 Dose: 125 mls/hr Documented By: MELISA Ceftriaxone Sodium 1 gm/ (Sodium Chloride) 50 mls @ 100 mls/hr IV Q24H [facility] Last Infusion: 11/26/23 22:41 Dose: Infused Documented By: CHANDAN Levetiracetam (Levetiracetam 500 Mg Tablet) 500 mg PO BID [facility] Last Admin: 11/27/23 07:56 Dose: 500 mg Documented By: MELISA Levothyroxine Sodium (Levothyroxine Sodium 75 Mcg Tablet) 75 mcg PO DAILY@0600 [facility] Last Admin: 11/27/23 06:19 Dose: 75 mcg Documented By: DIMITRI Magnesium Hydroxide (Milk Of Magnesia 30 Ml Oral.Susp) 30 ml PO DAILY PRN PRN Reason: Constipation Pantoprazole Sodium (Pantoprazole Sodium 40 Mg/10 Ml Vial) 40 mg IVPUSH BID@0630,1630 [facility] Last Admin: 11/27/23 06:12 Dose: 40 mg Documented By: DIMITRI Sodium Chloride (0.9 % Sodium Chloride Flush 3 Ml Syringe) 3 ml IVFLUSH QSHIFT [facility] Last Admin: 11/27/23 07:47 Dose: Not Given Documented By: MELISA Non-Admin Reason: IV Running Labs 11/26/23 14:06 11/26/23 07:43 Microbiology Microbiology Results: Microbiology 11/25/23 22:19 Urine Culture - Final Urine Catheterized - Miller Catheter Escherichia coli 11/26/23 00:01 Blood Culture - Preliminary Blood - Venous No growth after 24 hours. 11/26/23 00:00 Blood Culture - Preliminary Blood - Venous No growth after 24 hours. Assessment and Plan (1) Symptomatic anemia: Status: Acute Plan 83/m with advance dementia, non verbal,bedbound,, chronic multiple decubitus ulcers, GERD, hypothyroidism, orthostatic hypotension, anemia requiring blood transfusions, atrial fibrillation (apparently not on Eliquis anymore due to GI bleeding) was brought to the emergency department via EMS after he was noted by his family to have worsening swelling to both lower extremities. Symptomatic anemia, H/H much improved after transfusion, continue monitoring H/H. PPI Urinary tract infection. History of Klebsiella pneumonia infection susceptible to ceftriaxone. Continue ceftriaxone. Follow culture Bilateral lower extremity edema secondary to hypoalbuminemia. Continue PRBCs transfusion. Atrial fibrillation, currently rate and rhythm controlled. Hypothyroidism. nl TSH. Continue levothyroxine. History orthostatic hypotension. Continue midodrine. Seizure disorder. Continue levetiracetam. Advanced dementia. Multiple chronic decubitus ulcers. Wound care consult. FEN: start IVF, ROLLER ENGRAVER rec Purre + thin liquid, meds crushed DVT prophylaxis: Compression stocking if tolerated. Pharmacological therapy is contraindicated due to acute anemia. Code status: DNR/DNI need for inpt: management of above Quality Stroke Does the patient have a stroke diagnosis?: No VTE Prior VTE?: No VTE Risk Level:: Medical - moderate - high VTE Device Contraindication: N/A - Device Ordered VTE Drug Contraindication: Treatment Not Indicated
--- NOTE | 2023-11-27 10:17 | MHC.SL.SWA ---
Speech Pathologist Impression: Risk of Aspiration Due to: Reduced Cognition Dysphasia Diet Status: Liquid Consistency and Strategies for Safe Swallow: Liquid Intake Recommendation: Thin Liquid Intake Strategies: Small Sips Solid Food Consistency: Dietary Recommendations: Pureed (NDD1) Additional Modifications to Solid Foods: Patient requires 1-1 feeding and CAREFUL positioning for meals. Patient's upper body should be as upright as possible, with head of bed minimally at 70 degrees, preferably 90 degrees. Lower food of bed if needed to ease pressure on contracted legs. Straws for liquids o.k. but should be monitored/controlled as patient takes large gulps. Patient has HX of esophageal issues, keep patient in upright position for 20-30 minutes after meals if tolerated. Oral Medication Intake: Crushed with Puree Please contact the pharmacy regarding appropriate crushable or liquid drug formulations that are available whenever modified delivery is recommended. Compensatory Strategies and Precautions to be Taken for Safe Swallow: Sitting Upright (90 deg) Liquids from Cup Liquids from Straw Liquids from Wide Cup Alternate Liquids/Solids Supervision While Eating and Drinking for Safe Swallow: Total Assistance (1:1) Foods to Avoid: Add sauces/gravies to thicker purees and blend well. Swallowing Recommended Treatments: Compens. Strategy Educat. Recommendation for Speech: Inpatient Speech Therapy Comment: Patient presents with a mild-moderate oral pharyngeal dysphagia, and significant issues related to positioning for meals, due to severe contractures of lower extremities. Recommend START diet of Puree (NDD1) with THIN liquids, pills crushed in puree (whole in puree for pills that cannot be crushed). This patient's baseline diet, per family. Patient requires a 1-1 feeding will need careful positioning for meals, and may have difficulty at times sustaining positioning upper body upright. Do not attempt to feed if patient is reclined. Due to documented esophageal issues, patient further should remain with head of bed elevated for 20-30 minutes after meal, if tolerated. MD RD notified of recommendations by secure text, RN in person, STATE'S ATTORNEY will follow. Frequency/Duration: Date Range for Service Req: Timeline to reassess: Eyelet Maker Clinican/Clinical Fellow: No Supervisory Statement: I have reviewed and agree with the student/clinical fellow's documentation: N/A Speech Language Pathologist: Lyubov Miranda M.A., CCC-STATE'S ATTORNEY
[2023-11-27 11:41] LABS: Anion Gap 11 (12-20); Blood Urea Nitrogen 23 mg/dL (9-16); Calcium 7.6 mg/dL (8.4-10.2); Carbon Dioxide 24 mmol/L (22-29); Chloride 108 mmol/L (96-108); Creatinine Clr Calc Pharmacy 39.3; Estimated Glomerular Filt Rate > 60; Glucose Random 88 mg/dL (60-115); Potassium 4.9 mmol/L (3.3-5.1); Sodium 138 mmol/L (135-145)
[2023-11-27 15:28] VITALS: BP 134/69; PULSE 76; RESP 17; TEMP 36.2; O2SAT 100
--- NOTE | 2023-11-27 16:42 | PC.NURSE ---
Family in to see patient and updated.
--- NOTE | 2023-11-27 16:56 | MHC.CM.PN ---
PT WITH DEMENTIA, CM CALLED PTS HCP/NEPHEW JESSIKA WITH A PHOTO TECHNICIAN JESSIKA REPORTS THE PT LIVES WITH HIMSELF AND HIS AND HAS TWO SNAGGER THAT PROVIDE CARE WELL PT HAS ONLY A HOSPITAL BED AT HOME HE IS BED BOUND, HOWEVER, JESSIKA REPORTS IT IS 6 YEARS OLD WITH THE SAME MATTRESS AND THEY ARE TRYING TO GET A NEW ONE HCP ON FILE PCP: GUILHERME SANCHEZ IMM DELIVERED DCP: HOME RESUME TREASURY DIRECTOR AND FAMILY CARE BLS TRANSPORT
--- NOTE | 2023-11-27 19:11 | PC.NURSE ---
Addendum entered by Loren Crabtree RN 11/27/23 23:18: Handoff report given to oncoming RN @ 23:00. Addendum entered by Loren Crabtree RN 11/27/23 21:32: CBC results back with H+H at 9.1/26.8 down from previous 12.3/37.2. No signs of bleeding noted. Patient was incontinent of mushy brown BM this evening. Of note, OBS sample was already sent on 11/24 and was negative. BP elevated, likely related to pain as patient has many chronic wounds and was crying and yelling out on initial interaction. Orthotist/Prosthetist attempted to medicated patient with prn tylenol and scheduled keprra and depakote, though patient spit out the meds crushed in applesauce when job specification writer attempted to administer. Pt has hx of advanced dementia per chart review. Covering Dr. Tera Trivedi notified of labs and patient refusing po meds. IV tylenol ordered and given, IV keppra ordered and awaiting delivery from pharmacy as requested. Patient no longer yelling or crying; is resting in bed without signs of pain at this time. Breathing observed by job specification writer is even and unlabored without distress. Plan of care continues. Original Note: Assumed care of patient at 19:00. Phlebotomy called and requested to bedside to draw previously ordered CBC.
[2023-11-27 19:28] LABS: Hematocrit 26.8 % (42.0-52.0); Hemoglobin 9.1 g/dl (14.0-18.0); Mean Corpuscular Hemoglobin 27.7 pg (27.0-33.0); Mean Corpuscular Volume 81.7 fL (80.0-98.0); Mean Platelet Volume 10.9 fL (9.4-12.4); Platelet Count 247 X10*3/uL (160-400); Red Blood Count 3.28 X10*6/uL (4.60-5.80); Red Cell Distribution Width 19.4 % (11.0-16.0)
[2023-11-27 19:48] LABS: NRBC Pct Auto 1.6 /100WBC (0.0-0.2)
[2023-11-27 19:52] VITALS: BP 157/60; PULSE 72; RESP 16; TEMP 36.4; O2SAT 99
[2023-11-27] MEDS: Acetaminophen 1,000 MG/100 ML PIGGYBACK 400 MG IV (21:02)
[2023-11-27] MEDS: 0.9 % Sodium Chloride Flush 3 ML SYRINGE IVFLUSH (21:04)
[2023-11-27] MEDS: levETIRAcetam in NaCl (iso-os) 500 MG/100 ML PIGGYBACK 400 MG IV (21:51)
[2023-11-27] MEDS: cefTRIAXone sodium 1 GM in 0.9 % Sodium Chloride 50 ML IV (21:57)
[2023-11-28] MEDS: Lactated Ringers 1,000 ML 125 ML IVCONT ×2 (02:00→09:43)
[2023-11-28 03:40] VITALS: BP 146/71; PULSE 87; RESP 16; TEMP 36.4; O2SAT 93
--- NOTE | 2023-11-28 06:40 | PC.NURSE ---
Addendum entered by Rosana Cassidy RN 11/28/23 07:20: floodplain manager Loren stoddard myself and supervisor network control operators notifying her of need for lab draw as HH has been low and made aware of report of him refusing and request for someone to attempt if previous contracts law professor cannot draw or needs assistance. The patient does moan/mumble with repositioning. Original Note: Phlebotomy came to counter and reported by room number this patient refused his lab draw this morning. He walked away. I called lab and reported this as I wasn't sure he had gotten room number correct, as it is questionable this patient is able to refuse as he is severely contracted and nonverbal. I called the lab and spoke to irrigation technician, and asked to be sure this patient gets drawn this morning, she said she will follow up with contracts law professor.
[2023-11-28] MEDS: Pantoprazole Sodium 40 MG/10 ML VIAL IVPUSH (06:52)
[2023-11-28] MEDS: Levothyroxine Sodium 75 MCG TABLET PO (06:53)
[2023-11-28 07:30] VITALS: BP 133/64; PULSE 86; RESP 18; TEMP 36.2; O2SAT 99
[2023-11-28] MEDS: Acetaminophen 325 MG TABLET 975 MG PO (07:40)
[2023-11-28] MEDS: Divalproex Sodium Sprinkles 125 MG CAP.DR.SPR 250 MG PO (08:52)
[2023-11-28] MEDS: levETIRAcetam 500 MG TABLET PO (08:52)
--- NOTE | 2023-11-28 09:39 | PM.DS ---
DS: Providers Provider Date of Service: 11/28/23 Date of admission: 11/26/23 00:56 Date of discharge: 11/28/23 Primary care physician: Unknown Physician Consults: 11/26/23 01:36 Consult to Wound Care Routine Reason for consultation: Multiple decubitus ulcers Has provider been notified: No 11/26/23 01:37 Consult to Gastroenterology Routine Consulting Provider: Carly Castaneda Reason for consultation: Anemia Has provider been notified: No 11/26/23 09:35 Consult to Wound Care Routine Reason for consultation: pressure ulcers DS: Diagnosis Discharge Diagnosis (1) Symptomatic anemia: Status: Acute DS: Summary Hospital Course Hospital Course: Admission Chief Complaint: Increasing swelling RORY Cohen is 83 years old man with past medical history significant for advanced dementia, limited communication, chronic multiple decubitus ulcers, GERD, hypothyroidism, orthostatic hypotension, anemia requiring blood transfusions, atrial fibrillation (apparently not on Eliquis anymore due to GI bleeding) was brought to the emergency department via EMS after he was noted by his family to have worsening swelling to both lower extremities. He was recently hospitalized (September 2023) due to GI bleeding requiring PRBC transfusions. At that time he was evaluated by GI service. He had an EGD on September 22 that showed tortuous esophagus, mild gastric erythema, benign polyp (distal GEJ). He received treatment with enema for disimpaction. He was found to have normal vitamin B12 level. Colonoscopy was not performed given his advanced dementia and inability to tolerate bowel preparation. He was treated for UTI (Klebsiella pneumonia). In the ED, he was found to have temperature of 96.6. There is no significant hypotension and tachycardia. O2 sats are normal on room air. Blood workup was remarkable for hemoglobin of 6.2 and hematocrit of 20.0 (8.3 and 27.13 Jul 2023). There is leukocytosis of 16.9. There is no lactic acidosis. Platelets are normal. Creatinine is at baseline, 1.51 and BUN is 38. Troponin is 55.9 --> 57.0--> 45.2. There are no significant electrolyte imbalances. Urinalysis consistent with UTI. Bilateral venous ultrasound showed significantly limited exam, no evidence of DVT. ECG showed normal sinus rhythm, heart rate 69 beats per minute. ED tx: Ceftriaxone 1 g IV, NS 100 mL/hour Hospital course: 83/m with advance dementia, non verbal,bedbound, chronic multiple decubitus ulcers, GERD, hypothyroidism, orthostatic hypotension, anemia requiring blood transfusions, atrial fibrillation (apparently not on Eliquis anymore due to GI bleeding) was brought to the emergency department via EMS after he was noted by his family to have worsening swelling to both lower extremities. He was noted to be anemic with hemoglobin of 6.2 but no active bleeding. He was transfused 2 units of RBC and was evaluated by industrial relations specialist and recommended no intervention. He was also noted to acute UTI treated with ceftriaxone, culture show e coli. will treat for 7 days with transition to Ceftin at discharged. The swelling in the legs is due to anemia and low protein state, an US showed no DVT. Patient has multiple pressure ulcer that do not appear infected and is being managed conservatively. Overall the patient's seem to be declining from his baseline with advanced dementia, severe malnutrition with other comorbidities as listed. Goals of care conversation was discussed with the family (Niece Kendra and Nephew Simba--HCP) and they have opted for hospice care at home. Problems Symptomatic anemia, H/H much improved after transfusion. Seen by GI no intervention Urinary tract infection. Urine culture showed e.coli, he has been on Ceftriaxone and will change to ceftin Bilateral lower extremity edema secondary to hypoalbuminemia. Atrial fibrillation, currently rate and rhythm controlled. Hypothyroidism. nl TSH. Continue levothyroxine. History orthostatic hypotension. Continue midodrine. Seizure disorder. Continue levetiracetam. Advanced dementia. Multiple chronic decubitus ulcers. conservative management, frequent turning diet: puree, thin liquid. Will be going home with hospice Time Attestation Discharge Coordination Time (in mins): 45 Quality: Safe Use of Opioids Does Pt have an Active Cancer Diagnosis on the Problem List?: No Quality: Stroke Does the patient have a stroke diagnosis?: No Physical Exam Vital Signs: Vital Signs: Last Vital Signs Temp 97.2 F 11/28/23 07:30 Pulse 86 11/28/23 07:30 Resp 18 11/28/23 07:30 BP 133/64 11/28/23 07:30 Pulse Ox 99 11/28/23 07:30 O2 Del Method Room Air 11/28/23 07:30 BMI result Body Mass Index 16.4 DS: Data Data Completed and Pending Completed studies during hospitalization [Text1]: Procedures Inspection of Upper Intestinal Tract, Via Natural or Artificial Opening Endoscopic (09/21/20) Transfusion of Nonautologous Red Blood Cells into Peripheral Vein, Percutaneous Approach (09/21/20) Labs on day of discharge: Laboratory Results - last 24 hr 11/27/23 11/27/23 10:42 19:17 WBC 10.0 RBC 3.28 L Hgb 9.1 L D Hct 26.8 L D MCV 81.7 MCH 27.7 MCHC 34.0 RDW 19.4 H Plt Count 247 MPV 10.9 Absolute Nucleated RBC 0.160 H Nucleated RBC % (auto) 1.6 H Sodium 138 Potassium 4.9 Chloride 108 Carbon Dioxide 24 Anion Gap 11 L BUN 23 H Creatinine 0.84 Estim Creat Clear Calc 39.3 Estimated GFR > 60 Random Glucose 88 Calcium 7.6 L Preliminary micro results at discharge 11/26/23 00:01 Blood Culture - Preliminary Blood - Venous No growth after 48 hours. 11/26/23 00:00 Blood Culture - Preliminary Blood - Venous No growth after 48 hours. Discharge Plan Discharge Anticipated Discharge Date/Time: 11/28/23 09:34 Patient Disposition: Home, Self-Care Discharge Diagnosis: UTI, anemia, Referrals: [facility] [Outside] - 1 Day ([facility] will contact you to initiate hospice services) Physician,Unknown J [Primary Care Provider] - 1 Week Discharge Medications: New morphine concentrate 100 mg/5 mL (20 mg/mL) solution 5 mg PO Q3H PRN (Reason: pain/comfort) 15 Days Qty: 30 0RF Rx Instructions: Partial Fill upon patient request. lorazepam [Lorazepam Intensol] 2 mg/mL concentrate 0.5 mg PO Q4H PRN (Reason: anxiety/restlessness) Qty: 30 0RF bisacodyl [Gentle Laxative (bisacodyl)] 10 mg suppository 10 mg CA DAILY PRN (Reason: constipation) Qty: 30 0RF haloperidol lactate 2 mg/mL Concentrate 1 mg PO Q6H PRN (Reason: Agitation/restlessness) 7 Days Qty: 15 1RF hyoscyamine sulfate [Hyosyne] 0.125 mg/mL drops 1 ml PO Q4-6H PRN (Reason: secretions) Qty: 20 0RF Continued trazodone 50 mg tablet 1 - 2 tab PO BEDTIME omeprazole 40 mg capsule,delayed release(DR/EC) 1 cap PO DAILY@0630 levothyroxine 75 mcg tablet 1 tab PO DAILY@0600 divalproex 250 mg tablet,delayed release (DR/EC) 250 mg PO DAILY@0900 divalproex 250 mg tablet,delayed release (DR/EC) 500 mg PO BEDTIME levetiracetam 500 mg tablet 500 mg PO BID calcium carbonate [Antacid (calcium carbonate)] 200 mg calcium (500 mg) tablet,chewable 200 mg PO TID PRN (Reason: indigestion) gabapentin 100 mg capsule 100 mg PO BID PRN (Reason: Pain) Discontinued acetaminophen 325 mg Capsule 650 mg PO DAILY PRN (Reason: Pain) Diet: Advance to usual diet Activity on Discharge: As tolerated Stand Alone Forms: Patient Portal Discharge page Print Language: Dominican Care Plan Goals: recovery from uti and anemia hospice and comfort care at home Health Concerns: chronic anemai, uti malnutrition multiple pressure ulcer Plan of Treatment: to complete antibiotics (ceftin for uti) Assessment: see above
--- NOTE | 2023-11-28 09:56 | PC.NURSE ---
This RN attempted multiple times to given patient scheduled depakote and keppra per EMAR. Patient take small bits of meds and/or spitting out bit given. Patient yelling out after attempt of giving meds. This RN unable to given patient full dose of either med, unknown how much patient actually got d/t med being in applesauce crushed. Dr. Oconnell made aware. No new orders.
--- NOTE | 2023-11-28 10:00 | HO.WOUND ---
Wound Consult: Attempted 83yr old?[place] [facility] - See progress notes and H&P for detailed history.? Wound consult placed for Right Hip and Left Buttock wounds POA.? Arrival to bedside direct care team was working with other patients and this patient was just cleaned and repositioned - direct care team will reach back out to wound care nurse later in the day to coordinate care as patient is contracted and requires more than one staff for reposition and skin assessments.
[2023-11-28 10:28] VITALS: BMI 16.4
--- NOTE | 2023-11-28 10:41 | MHC.CLN ---
NUTRITION CONSULT FOR WOUNDS. DIET=REGULAR, PUREE CONSISTENCY. REQUIRES 1:1 FEEDING. NUTRITION DX MODERATE MALNUTRITION IN THE CONTEXT OF CHRONIC ILLNESS WITH SIGNIFICANT WEIGHT LOSS X 4 MONTHS, LOWER EXTREMITY EDEMA, MODERATE DEPLETION OF BODY FAT AND MUSCLE MASS. LIMITED PO INTAKE. SKIN WITH UNSTAGEABLE AREAS TO LOWER BACK AND RIGHT HIP; STAGE II TO LEFT HIP. FOLLOW FOR PLAN OF CARE, INTAKE, AND SKIN INTEGRITY. SEE CLINICAL NUTRITION ASSESSMENT 11/28/23.
--- NOTE | 2023-11-28 11:04 | MHC.CM.PN ---
Addendum entered by Yun Tello RN 11/28/23 14:11: [facility] transport auth # [id number] Addendum entered by Yun Tello RN 11/28/23 13:33: Per MD family agreeable to hospice. CM met with family via dipper clock and watch hands who confirms they wish to move forward w/ hospice via [facility] and would like patient to dc home today. Hospice is aware and will see patient tomorrow at home for intake. Hospice meds sent to [facility] [place] pharmacy and will be delivered to patient's room prior to dc. BLS transport scheduled for 4pm. HCP, RN and MD aware. Original Note: Per MD rounds patient not medically cleared for dc. MD will speak w/ family re: goals of care.
--- NOTE | 2023-11-28 11:05 | MHC.SLORD ---
Speech Language Pathology Order Status: Patient not appropriate for feeding this morning as he would not open his eyes and not responsive to sternal rub. He is on a pureed diet with thin liquids, which is his baseline at home, per RD, patient with poor PO intake. INSULATION BLOWER will re-attempt visit later today if schedule allows, otherwise plan for tomorrow morning. INSULATION BLOWER will continue to follow.
--- NOTE | 2023-11-28 13:26 | HO.WOUND ---
Wound Consult: Initial 83yr old?male admitted to [facility] [place] on 11/26/23 - See progress notes and H&P for detailed history.? Wound consult placed for multiple pressure injuries present on admission. Discussed with direct care team that patient is set to d/c to home with family and hospice care. Arrival to the bedside patient is contracted and nonverbal to questions, family present and Yakut speaking - Supervisor [employer] present for wound care instructions from home. ? Family reports the patient has a hospital grade bed at home, some supplies provided to patient / family and advised to work with hospice for continued supplies. Left Sacrum Etiology: ?Unstageable Pressure Injury?Present on Admission Measurements: 3cm x 3cm x 0.4cm Wound Bed: full thickness tissue loss with areas of thick adherent yellow slough - pint moist marbled wound bed Drainage / Odor: malodor noted - yellow judd drainage Edges: ? unattached Ayesha wound: DTI pink erythema - ? No Induration, Fluctuance noted Pain: reports pain when assessed Goals of Treatment: ? Hydrofiber for moisture management and autolytic debridement Right Angelo Etiology: ?Unstageable Pressure Injury?Present on Admission Measurements: 2cm x 1cm x 0.2cm Wound Bed: yellow slough - pint moist marbled wound bed Drainage / Odor: yellow drainage Edges: ? attached Ayesha wound:pink erythema - ? No Induration, Fluctuance noted Pain: reports pain when assessed Goals of Treatment: ? Triad for moisture management and autolytic debridement Left Hip / Greater Trochanter Etiology: ?Unstageable Pressure Injury?Present on Admission Measurements: 2cm x 1cm x 0.2cm Wound Bed: yellow slough - pint moist marbled wound bed Drainage / Odor: yellow drainage Edges: ? attached Ayesha wound:pink erythema - ? No Induration, Fluctuance noted Pain: reports pain when assessed Goals of Treatment: ? Triad for moisture management and autolytic debridement Right Hip Etiology: ?Unstageable Pressure Injury?Present on Admission Measurements: 3cm x 6cm x 0.3cm Wound Bed: full thickness tissue loss with areas of thick adherent yellow slough - pink moist marbled wound bed Drainage / Odor: yellow judd drainage Edges: ? unattached Ayesha wound: DTI pink erythema - ? No Induration, Fluctuance noted Pain: reports pain when assessed Goals of Treatment: ? Hydrofiber for moisture management and autolytic debridement Recommendations: 1. Turn and Reposition every 2 hours and as needed for patient comfort.? Use pillows or wedges to support off loading positions. 2. Off Load all bony prominences with use of pillows and heel boots if needed.? Apply Preventative foams where needed. ? 3. Monitor for incontinence and moisture control, use barrier creams when needed for prevention and treatment. 4. Provide adequate and supplemental nutrition.? 5. Continue low air loss mattress. 6. When applicable maintain blood glucose levels per Providers order. 7. Left Sacrum and Right Hip - Off Load Pressure - Cleanse with NS moist gauze, pat dry. Apply triad to periwound. Apply Durafiber AG to wound bed cover with foam dressing - change every 3 days and as needed for strike through drainage. 8. Right Angelo and Left Hip - Off Load Pressure - Cleanse with NS moist gauze, pat dry. Apply thin layer of Triad to wound bed - only pat and dab no scrub and rub. Cover with Foam dressing, change every 3 days. Re-consult wound care Nurse for wound deterioration or wound changes.
[2023-11-28 13:32] LABS: Hematocrit 26.9 % (42.0-52.0); Hemoglobin 9.2 g/dl (14.0-18.0); Mean Corpuscular HGB Conc 34.2 g/dl (31.0-36.0); Mean Corpuscular Hemoglobin 27.5 pg (27.0-33.0); Mean Corpuscular Volume 80.5 fL (80.0-98.0); NRBC Pct Auto 0.6 /100WBC (0.0-0.2); Red Blood Count 3.34 X10*6/uL (4.60-5.80); Red Cell Distribution Width 20.1 % (11.0-16.0); White Blood Count 8.7 X10*3/uL (4.8-10.8)
[2023-11-28 13:50] LABS: Anion Gap 14 (12-20); Blood Urea Nitrogen 20 mg/dL (9-16); Calcium 7.5 mg/dL (8.4-10.2); Carbon Dioxide 23 mmol/L (22-29); Chloride 107 mmol/L (96-108); Creatinine Clr Calc Pharmacy 36.7; Estimated Glomerular Filt Rate > 60; Glucose Random 104 mg/dL (60-115); Potassium 4.5 mmol/L (3.3-5.1); Sodium 139 mmol/L (135-145)
[2023-11-28 15:04] VITALS: BP 119/63; PULSE 82; RESP 18; TEMP 36; O2SAT 100
== END 2023-11-28 17:30 | disposition home or self-care (01) | DRG 690 ==
LOC: HO.ED 11-26 00:59 → HO.EDOVER 11-26 01:17 → HO.S3 11-26 01:43
PROVIDERS: Internal Medicine; Admitting Provider Internal Medicine; Emergency Provider Emergency Medicine; Visit Provider Internal Medicine
DX: N39.0 Urinary tract infection, site not specified (principal); E03.9 Hypothyroidism, unspecified; F03.90 Unspecified dementia, unspecified severity, without behavioral disturbance, psychotic disturbance, mood disturbance, and anxiety; I95.1 Orthostatic hypotension; D64.9 Anemia, unspecified; Z66 Do not resuscitate; M62.462 Contracture of muscle, left lower leg; M62.461 Contracture of muscle, right lower leg; I48.91 Unspecified atrial fibrillation; E88.09 Other disorders of plasma-protein metabolism, not elsewhere classified; G40.909 Epilepsy, unspecified, not intractable, without status epilepticus; B96.20 Unspecified Escherichia coli [E. coli] as the cause of diseases classified elsewhere; Z79.890 Hormone replacement therapy; Z79.899 Other long term (current) drug therapy
CPT/HCPCS: 36415; 80048; 80053; 81001; 82040; 82272; 82947; 83605; 83880; 84443; 84484; 85014; 85018; 85025; 85027; 85610; 86850; 86900; 86901; 86923; 87040; 87086; 87088; 87186; 92610; 93005; 93970; 99285; J0131; J0696; J1953; J2470; J7120; P9016

== ENCOUNTER → 2023-11-26 00:56 | Outpatient (BNV) | payer MEDICARE, SELFPAY | PROVIDERS: Admitting Provider Internal Medicine; Emergency Provider Emergency Medicine; Visit Provider Internal Medicine | DX: D64.9 Anemia, unspecified (principal) | CPT/HCPCS: 99223; 99232; 99239; 99499 ==

== ENCOUNTER → 2023-11-26 00:56 | Outpatient (BNV) | payer MEDICARE, SELFPAY | PROVIDERS: Admitting Provider Internal Medicine; Emergency Provider Emergency Medicine; Visit Provider Internal Medicine | DX: D64.9 Anemia, unspecified (principal); R60.0 Localized edema | CPT/HCPCS: 99222 ==

== ENCOUNTER 2023-12-08 14:16 | Outpatient (RCR) | payer OTHER, SELFPAY | END 2023-12-20 15:10 | disposition EXP | LOC: HO.WCC 14:16 | PROVIDERS: Visit Provider Surgery | DX: L89.222 Pressure ulcer of left hip, stage 2 (principal); L89.213 Pressure ulcer of right hip, stage 3; L89.144 Pressure ulcer of left lower back, stage 4; L89.114 Pressure ulcer of right upper back, stage 4; L89.893 Pressure ulcer of other site, stage 3; E43 Unspecified severe protein-calorie malnutrition; F02.C11 Dementia in other diseases classified elsewhere, severe, with agitation | CPT/HCPCS: 11042; 11045 ==